=== PATIENT | male | born 1950 | race Caucasian/White ===

== ENCOUNTER 2020-07-06 08:14 | Outpatient (REF) | payer BC, SELFPAY ==
[2020-07-06 09:14] LABS: MANUAL DIFF FLAG NO
[2020-07-06 09:26] LABS: Basophils Percent Auto 0.4 % (0-2); Eosinophils Absolute Auto 0.3 X10*3/uL (0.0-0.4); Hematocrit 44.9 % (42-52); Imm Gran Abs Auto 0.03 X10*3/uL (0.00-0.03); Imm Gran Pct Auto 0.4 % (0.0-0.4); Lymphocytes Absolute Auto 2.9 X10*3/uL (1.2-4.9); Mean Corpuscular HGB Conc 33.4 g/dl (31.0-36.0); Mean Corpuscular Hemoglobin 31.4 pg (27.0-33.0); Mean Corpuscular Volume 94.1 fL (80-98); Monocytes Absolute Auto 0.5 X10*3/uL (0.1-1.2); Monocytes Percent Auto 7.8 % (2-11); Neutrophils Percent Auto 44.4 % (45-73); Platelet Count 226 X10*3/uL (160-400); Red Blood Count 4.77 X10*6/uL (4.60-5.80); Red Cell Distribution Width 12.3 % (11.0-16.0); White Blood Count 6.8 X10*3/uL (4.8-10.8)
[2020-07-06 09:41] LABS: Alanine Aminotransferase 49 U/L (0-40); Albumin Level 4.2 g/dL (3.5-5.0); Alkaline Phosphatase 79 U/L (39-117); Anion Gap 10 (12-20); Aspartate Amino Transferase 26 U/L (5-37); Bilirubin Direct 0.3 mg/dL (0.0-0.5); Bilirubin Total 0.7 mg/dL (0.0-1.0); Blood Urea Nitrogen 21 mg/dL (9-16); Calcium 9.1 mg/dL (8.4-10.2); Carbon Dioxide 29 mmol/L (22-29); Chloride 106 mmol/L (96-108); Cholesterol 137 mg/dL; Estimated Glomerular Filt Rate > 60; Glucose Random 112 mg/dL (60-115); HDL Cholesterol 34 mg/dL; LDL Cholesterol Calculated 87 mg/dl; Potassium 4.6 mmol/l (3.3-5.1); Sodium 140 mmol/L (135-145); Triglycerides 81 mg/dL
== END 2020-07-06 08:15 | disposition home or self-care (01) ==
LOC: HO.LAB 08:14
DX: I10 Essential (primary) hypertension (principal); E78.5 Hyperlipidemia, unspecified
CPT/HCPCS: 36415; 80053; 80061; 80076; 85025

== ENCOUNTER 2020-07-31 08:57 | Outpatient (REF) | payer SELFPAY | END 2020-07-31 08:58 | disposition home or self-care (01) | LOC: HO.HAP 08:57 | DX: Z46.1 Encounter for fitting and adjustment of hearing aid (principal) | CPT/HCPCS: V5264 ==

== ENCOUNTER 2020-08-07 12:12 | Outpatient (REF) | payer SELFPAY | END 2020-08-07 12:13 | disposition home or self-care (01) | LOC: HO.HAP 12:12 | DX: Z13.89 Encounter for screening for other disorder (principal) | CPT/HCPCS: 92700 ==

== ENCOUNTER 2020-10-23 11:44 | Outpatient (REF) | payer SELFPAY ==
--- NOTE | 2020-10-23 14:10 | MHC.AU.P13 ---
Hearing Aid Evaluation- Right Ear Date of Visit: 10/23/20 Collar Setter Overlock Used: Not Applicable Description of Hearing: Right ear - Moderately-severe to profound mixed hearing loss with 68% speech understanding. Left ear - Profound mixed hearing loss with 10% speech discrimination ability. Current Hearing Instrument Information: Right Phonak Anum Q 50-SP BTE. Left - Very old analog BTE Additional Information: Patient would like to purchase a new hearing aid. Advise staying with Phonak, but the newest Anum model. Patient was thinking about the new aid for the left ear. However, I recommend the new aid for the better ear and transfering his current Anum Q 50-SP to the left ear. Did consider trial with a BI-CROS system; however, patient relies heavily on sound cues and wants sound coming to the left ear. Discussed using the two aids, he will still have difficulty understanding speech when in groups or background noise is present. The left side will only be benefited by sound awareness. Discussed the levels of technology available and patient would like to try the highest level technology. Hearing Instrument Selection: Right Ear: Housekeeping Attendant: Phonak Model: Anum M 90-SP Battery Size: 13 Color: Sand Beige TubinT double bend Type of Mold: Patient will use the Microsonic Shell fit today. Plan: Plan of Care for Hearing Instrument Fitting: Patient wishes to purchase hearing aids as prescribed Action Taken/Action Needed: Medical Clearance to be requested from PCP/ENT Comments: Hearing Aid Fitting scheduled for 11/10/2020. Diagnosis Code(s): Primary Diagnosis: H90.6 Mixed Hearing Loss, Bilateral Services Performed: Hearing Aid Evaluation Type: HAE M: Monaural PP Signature: Provider: Pao Lopez, [facility]
--- NOTE | 2020-10-24 09:13 | MHC.AU.P13 ---
Hearing Aid Evaluation- Right Ear Date of Visit: 10/23/20 Ophthalmic Photographer Used: Not Applicable Description of Hearing: Right ear - Moderately-severe to profound mixed hearing loss with 68% speech understanding. Left ear - Profound mixed hearing loss with 10% speech discrimination ability. Current Hearing Instrument Information: Right Phonak Anum Q 50-SP BTE. Left - Very old analog BTE Additional Information: Patient would like to purchase a new hearing aid. Advise staying with Phonak, but the newest Anum model. Patient was thinking about the new aid for the left ear. However, I recommend the new aid for the better ear and transfering his current Anum Q 50-SP to the left ear. Did consider trial with a BI-CROS system; however, patient relies heavily on sound cues and wants sound coming to the left ear. Discussed using the two aids, he will still have difficulty understanding speech when in groups or background noise is present. The left side will only be benefited by sound awareness. Discussed the levels of technology available and patient would like to try the highest level technology. Hearing Instrument Selection: Right Ear: Commissioner [employer]: Phonak Model: Anum M 90-SP Battery Size: 13 Color: Sand Beige TubinT double bend Type of Mold: Patient will use the Microsonic Shell fit today. Plan: Plan of Care for Hearing Instrument Fitting: Patient wishes to purchase hearing aids as prescribed Action Taken/Action Needed: Medical Clearance to be requested from PCP/ENT Comments: Hearing Aid Fitting scheduled for 11/10/2020. Diagnosis Code(s): Primary Diagnosis: H90.6 Mixed Hearing Loss, Bilateral Services Performed: Hearing Aid Evaluation Type: HAE M: Monaural PP [place] Non-Quantity Charges: HANC: NonBillable Event Signature: Provider: Pao Lopez, [facility]
--- NOTE | 2020-10-24 09:16 | MHC.AU.MED ---
Medical Clearance for Hearing Instrumentation Date: 10/24/20 Patient Name: Vincenzo Prieto Date of : 1950 Primary Care Provider: Referring Provider: Noe Robles MD We have seen your patient on 10/24/20 and have determined that they are a candidate for amplification (See accompanying report). Specifically, they would benefit from: Hearing aid use in both ears There is a statute that addresses Medical Evaluation Requirements prior to fitting a patient with a hearing aid. According to [place] statute 265 CMR:6.03(1), (a) General. Except as provided in 265 CMR 6.03(1)(b), a [employer] shall not sell a hearing aid unless the prospective user has presented to the [employer] a written statement signed by a licensed physician that states that the patient's hearing loss has been medically evaluated and the patient may be considered a candidate for a hearing aid. The medical evaluation must have taken place within the preceding six months. Please note: Due to the [place] Statute referenced above, we cannot accept a signature other than that of a licensed physician. ACADEMIC MANAGER and PA signatures cannot be accepted. I am in agreement with the above recommendation. There is no medical contraindication for hearing instrumentation. Physician Signature Date Physician Name (Printed)
== END 2020-10-23 11:45 | disposition home or self-care (01) ==
LOC: HO.HAP 11:44
PROVIDERS: Visit Provider Internal Medicine
DX: Z13.89 Encounter for screening for other disorder (principal)

== ENCOUNTER 2020-11-01 11:39 | Outpatient (REF) | payer BC, SELFPAY | END 2020-11-01 11:40 | disposition home or self-care (01) | LOC: HO.LAB 11:39 | PROVIDERS: Visit Provider Internal Medicine | DX: Z20.822 Contact with and (suspected) exposure to COVID-19 (principal) | CPT/HCPCS: 36415; C9803; U0003 ==

== ENCOUNTER 2020-11-22 09:54 | Outpatient (REF) | payer SELFPAY | END 2020-11-22 09:55 | disposition home or self-care (01) | LOC: HO.HAP 09:54 | PROVIDERS: Visit Provider Internal Medicine | DX: Z46.1 Encounter for fitting and adjustment of hearing aid (principal) | CPT/HCPCS: V5257 ==

== ENCOUNTER 2020-11-23 13:24 | Outpatient (REF) | payer BC, SELFPAY | END 2020-11-23 13:25 | disposition home or self-care (01) | LOC: HO.HAP 13:24 | PROVIDERS: Visit Provider Internal Medicine | DX: Z13.89 Encounter for screening for other disorder (principal) ==

== ENCOUNTER 2020-12-07 09:52 | Outpatient (REF) | payer SELFPAY ==
--- NOTE | 2020-12-08 07:51 | MHC.AU.P13 ---
Hearing Instrument Follow-Up- Binaural Date of Visit: 12/07/20 Development Assistant Used: Not Applicable Right Ear: Gas Torch Brazier: Phonak Model: Anum M 90-SP Serial Number: [id number] Repair Warranty: 01/21/2024 ORIGINAL WARRANTY REPAIR AND LOSS AND DAMAGE Battery Size: 13 Color: Sand Beige TubinT double bend Type of Dome:Type of Mold: Patient will use the Microsonic Shell fit today. Left Ear: Gas Torch [place]razier: Transfering current 2013 Anum Q 50-SP Model: Anum Q 50-SP Serial Number: [id number] RepairWarranty: Battery Size: 13 Tubin TT double bend Type of Mold: Microsonic Shell Follow-Up Summary: Patient has only been using the new aid in the right ear and reports he feels he is hearing about the same as with the Anum Q 50 SP aid before using the new aid. He wants to try the new aid in the left ear as he has always used just a left aid prior to June 2020. Discussed the reason we changed the new aid to the right ear is due his change in left ear hearing with very poor speech discrimination. Patient still wanted to try the new aid in the left ear. Reprogrammed the aid for the left ear and patient reported no ability to understand speech with just the left aid. Counseled extensively about the reason a hearing aid for the left ear will not improve speech discrimination, it will just provide sound awareness. Changed the aid back to the right picking up last settings for the right ear. Patient would like to try an Oticon hearing aid for the right ear; however, he knows if the Oticon product does not provide more improvement, he wants the Phonak aid changed to Anum M 50-SP. Will order both products. Patient will be fit with both next visit and try for 2 weeks and decide which product to keep. Recommendations: Recommendations (Other): Schedule HAF appointment when both hearing aids are received. Diagnosis Code(s): Primary Diagnosis: H90.6 Mixed Hearing Loss, Bilateral Services Performed: [place] Non-Quantity Charges: HANC: NonBillable Event Signature: Provider: Pao Lopez, [facility]
== END 2020-12-07 09:53 | disposition home or self-care (01) ==
LOC: HO.HAP 09:52
PROVIDERS: Visit Provider Internal Medicine
DX: Z13.89 Encounter for screening for other disorder (principal)

== ENCOUNTER 2020-12-15 09:54 | Outpatient (REF) | payer SELFPAY | END 2020-12-15 09:55 | disposition home or self-care (01) | LOC: HO.HAP 09:54 | DX: Z13.89 Encounter for screening for other disorder (principal) ==

== ENCOUNTER 2020-12-29 09:52 | Outpatient (REF) | payer SELFPAY | END 2020-12-29 09:53 | disposition home or self-care (01) | LOC: HO.HAP 09:52 | PROVIDERS: Visit Provider Internal Medicine | DX: Z13.89 Encounter for screening for other disorder (principal) ==

== ENCOUNTER 2021-01-15 09:56 | Outpatient (REF) | payer SELFPAY | END 2021-01-15 09:57 | disposition home or self-care (01) | LOC: HO.HAP 09:56 | PROVIDERS: Visit Provider Internal Medicine | DX: Z13.89 Encounter for screening for other disorder (principal) ==

== ENCOUNTER 2021-01-25 09:56 | Outpatient (REF) | payer SELFPAY | END 2021-01-25 09:57 | disposition home or self-care (01) | LOC: HO.HAP 09:56 | PROVIDERS: Visit Provider Internal Medicine | DX: Z13.89 Encounter for screening for other disorder (principal) ==

== ENCOUNTER 2021-02-02 11:42 | Outpatient (REF) | payer SELFPAY | END 2021-02-02 11:43 | disposition home or self-care (01) | LOC: HO.HAP 11:42 | PROVIDERS: Visit Provider Internal Medicine | DX: Z13.89 Encounter for screening for other disorder (principal) ==

== ENCOUNTER 2021-02-05 12:11 | Outpatient (REF) | payer SELFPAY | END 2021-02-05 12:12 | disposition home or self-care (01) | LOC: HO.HAP 12:11 | PROVIDERS: Visit Provider Internal Medicine | DX: Z13.89 Encounter for screening for other disorder (principal) ==

== ENCOUNTER 2021-02-13 08:56 | Outpatient (REF) | payer SELFPAY | END 2021-02-13 08:57 | disposition home or self-care (01) | LOC: HO.HAP 08:56 | PROVIDERS: Visit Provider Internal Medicine | DX: Z13.89 Encounter for screening for other disorder (principal) ==

== ENCOUNTER 2021-02-21 14:01 | Outpatient (REF) | payer SELFPAY ==
--- NOTE | 2021-02-22 10:14 | MHC.AU.HFU ---
Hearing Instrument Follow-Up- Binaural Date of Visit: 02/21/21 Manager Marketing Communication Used: Not Applicable Right Ear: PATIENT CHANGED BACK TO THE OTICON OPN S 3 PP TODAY WILL CHANGE IN [employer] IF PATIENT IS KEEPING SEE DETAILS BELOW Shelver: Phonak Model: Anum M 90-SP Serial Number: [id number] Repair Warranty: 05/05/2024 ORIGINAL WARRANTY REPAIR AND LOSS AND DAMAGE Battery Size: 13 Color: Sand Beige TubinT double bend Type of Mold: Microsonic Shell Dispensed By: [facility] Date of Fittin02/13/2021 Left Ear: Shelver: Not currently using Model: Anum Q 50-SP Serial Number: [id number] Repair Warranty: Battery Size: 13 Tubin TT double bend Type of Mold: Microsonic Shell Dispensed By: [facility] Date of Fittin05/27/2014 Follow-Up Summary: Patient scheduled for F/U to determine which hearing aid he will keep. Despite patient reporting he did not like the Oticon OPN S 3 PP BTE when gathering with his family after fitting, he says he was able to understand the television better. He reports the same problem with family gatherings with the Phonak Anum M 90 SP BTE and he does not want to spend the extra money for the higher technology if no benefit is seen in the difficult environments. Extensively discussed realistic expectations of any amplification given his reduced speech understanding even in the best environments. He continues to have trouble understanding speech in difficult environments despite many adjustments to all hearing aids trialed and discussed no hearing aid will provide full benefit in all settings and continually reprogramming the aid based on difficult/complex listening environments will not change the problem. Again, talked about the communication strategies to use in these situations. Fit the Oticon OPN S 3 PP aid today. No additional programming changes made from the original fitting. Patient instructed to call the office next week to discuss final decision. The Anum M 90-SP aid is on [facility] [email or web address] desk to return for credit if patient is keeping the Oticon aid. Patient requested his old Anum Q 50 SP be made a bit softer as the sound quality is very sharp. Decreased overall 3 dB. Patient wants to use this aid only as a backup. Diagnosis Code(s): Primary Diagnosis: H90.6 Mixed Hearing Loss, Bilateral Services Performed: [place] Non-Quantity Charges: HANC: NonBillable Event Signature: Provider: Pao Lopez CCC-A
== END 2021-02-21 14:02 | disposition home or self-care (01) ==
LOC: HO.HAP 14:01
PROVIDERS: Visit Provider Internal Medicine
DX: Z13.89 Encounter for screening for other disorder (principal)

== ENCOUNTER 2021-02-28 09:26 | Outpatient (REF) | payer SELFPAY | END 2021-02-28 09:27 | disposition home or self-care (01) | LOC: HO.HAP 09:26 | PROVIDERS: Visit Provider Internal Medicine | DX: Z13.89 Encounter for screening for other disorder (principal) ==

== ENCOUNTER 2021-03-06 12:55 | Outpatient (REF) | payer SELFPAY | END 2021-03-06 12:56 | disposition home or self-care (01) | LOC: HO.HAP 12:55 | PROVIDERS: Visit Provider Internal Medicine | DX: Z13.89 Encounter for screening for other disorder (principal) ==

== ENCOUNTER 2021-05-29 07:52 | Outpatient (REF) | payer MEDICARE, SELFPAY ==
[2021-05-29 08:46] LABS: MANUAL DIFF FLAG NO
[2021-05-29 08:51] LABS: Basophils Percent Auto 0.3 % (0-2); Eosinophils Absolute Auto 0.3 X10*3/uL (0.0-0.4); Hematocrit 43.2 % (42-52); Hemoglobin 14.6 g/dl (14.0-18.0); Imm Gran Abs Auto 0.02 X10*3/uL (0.00-0.03); Imm Gran Pct Auto 0.3 % (0.0-0.4); Lymphocytes Absolute Auto 2.3 X10*3/uL (1.2-4.9); Lymphocytes Percent Auto 37.3 % (20-40); Mean Corpuscular HGB Conc 33.8 g/dl (31.0-36.0); Mean Corpuscular Hemoglobin 31.3 pg (27.0-33.0); Mean Corpuscular Volume 92.5 fL (80-98); Mean Platelet Volume 12.2 fL (9.4-12.4); Monocytes Absolute Auto 0.5 X10*3/uL (0.1-1.2); Monocytes Percent Auto 7.3 % (2-11); Neutrophils Absolute Auto 3.1 X10*3/uL (2.0-8.3); Neutrophils Percent Auto 50.8 % (45-73); Platelet Count 219 X10*3/uL (160-400); Red Blood Count 4.67 X10*6/uL (4.60-5.80); Red Cell Distribution Width 12.3 % (11.0-16.0); White Blood Count 6.2 X10*3/uL (4.8-10.8)
[2021-05-29 09:46] LABS: Glucose Urine UA NEG (NEG); Leukocyte Esterase Urine NEG (NEG); Nitrite Urine NEG (NEG); Specific Gravity - Urine 1.015 (1.005-1.025); UACC Culture Trigger NO; Urine Blood TRACE (NEG); Urine Ketones NEG (NEG); Urine Protein NEG (NEG-TRACE)
[2021-05-29 09:50] LABS: Appearance Urine CLEAR; Color Urine YELLOW
[2021-05-29 09:51] LABS: Alanine Aminotransferase 32 U/L (0-40); Albumin Level 4.3 g/dL (3.5-5.0); Alkaline Phosphatase 74 U/L (39-117); Anion Gap 13 (12-20); Aspartate Amino Transferase 17 U/L (5-37); Bilirubin Total 0.9 mg/dL (0.0-1.0); Blood Urea Nitrogen 17 mg/dL (9-16); Calcium 9.5 mg/dL (8.4-10.2); Carbon Dioxide 24 mmol/L (22-29); Chloride 109 mmol/L (96-108); Cholesterol 99 mg/dL; Estimated Glomerular Filt Rate > 60; Glucose Fasting 114 mg/dL (60-99); HDL Cholesterol 28 mg/dL; LDL Cholesterol Calculated 55 mg/dl; Potassium 4.6 mmol/L (3.3-5.1); Sodium 141 mmol/L (135-145); Triglycerides 82 mg/dL
[2021-05-29 10:01] LABS: TSH reflex Free T4 0.46 uIU/mL (0.32-4.0)
[2021-05-29 10:11] LABS: RBC Urine 0-2 /HPF (0); Squamous Epithelial Cell Urine TRACE /LPF; WBC Urine 0 /HPF (0-4)
== END 2021-05-29 07:53 | disposition home or self-care (01) ==
LOC: HO.LAB 07:52
PROVIDERS: PCP Internal Medicine; Visit Provider Internal Medicine
DX: I10 Essential (primary) hypertension (principal); E78.00 Pure hypercholesterolemia, unspecified; R25.1 Tremor, unspecified; E66.3 Overweight
CPT/HCPCS: 36415; 80053; 80061; 81001; 84443; 85025

== ENCOUNTER 2021-07-12 08:08 | Outpatient (REF) | payer MEDICARE, SELFPAY ==
[2021-07-12 08:41] LABS: MANUAL DIFF FLAG NO
[2021-07-12 08:58] LABS: Basophils Percent Auto 0.5 % (0-2); Eosinophils Absolute Auto 0.3 X10*3/uL (0.0-0.4); Eosinophils Percent Auto 4.8 % (0-4); Imm Gran Abs Auto 0.02 X10*3/uL (0.00-0.03); Imm Gran Pct Auto 0.3 % (0.0-0.4); Lymphocytes Absolute Auto 2.6 X10*3/uL (1.2-4.9); Lymphocytes Percent Auto 39.8 % (20-40); Mean Corpuscular HGB Conc 34.1 g/dl (31.0-36.0); Mean Corpuscular Hemoglobin 31.4 pg (27.0-33.0); Mean Corpuscular Volume 92.2 fL (80-98); Mean Platelet Volume 12.1 fL (9.4-12.4); Monocytes Absolute Auto 0.5 X10*3/uL (0.1-1.2); Monocytes Percent Auto 7.3 % (2-11); Neutrophils Absolute Auto 3.1 X10*3/uL (2.0-8.3); Neutrophils Percent Auto 47.3 % (45-73); Platelet Count 232 X10*3/uL (160-400); Red Blood Count 4.77 X10*6/uL (4.60-5.80); Red Cell Distribution Width 12.1 % (11.0-16.0); White Blood Count 6.5 X10*3/uL (4.8-10.8)
[2021-07-12 09:08] LABS: Estimated Average Glucose 123 mg/dL; Hemoglobin A1c % 5.9 %
[2021-07-12 09:22] LABS: Appearance Urine CLEAR; Color Urine YELLOW; Glucose Urine UA NEG (NEG); Leukocyte Esterase Urine NEG (NEG); Nitrite Urine NEG (NEG); PH 6.5 (5.0-8.0); Specific Gravity - Urine 1.015 (1.005-1.025); UACC Culture Trigger NO; Urine Blood TRACE (NEG); Urine Ketones NEG (NEG); Urine Protein NEG (NEG-TRACE)
[2021-07-12 09:22] LABS: Alanine Aminotransferase 33 U/L (0-40); Albumin Level 4.3 g/dL (3.5-5.0); Alkaline Phosphatase 82 U/L (39-117); Anion Gap 11 (12-20); Aspartate Amino Transferase 19 U/L (5-37); Bilirubin Total 1.2 mg/dL (0.0-1.0); Blood Urea Nitrogen 23 mg/dL (9-16); Calcium 9.4 mg/dL (8.4-10.2); Carbon Dioxide 27 mmol/L (22-29); Chloride 106 mmol/L (96-108); Cholesterol 108 mg/dL; Estimated Glomerular Filt Rate 57; Glucose Fasting 113 mg/dL (60-99); HDL Cholesterol 28 mg/dL; LDL Cholesterol Calculated 66 mg/dl; Sodium 139 mmol/L (135-145); Total Protein 7.2 g/dL (6.5-8.0); Triglycerides 72 mg/dL
[2021-07-12 09:43] LABS: Free T4 (Free Thyroxine) 1.03 ng/dL (0.71-1.85); Thyroid Stimulating Hormone 0.64 uIU/mL (0.32-4.0); Vitamin D 25-OH Total 30.9 ng/mL (>30)
[2021-07-12 09:51] LABS: Folate 7.2 ng/mL (> or = 4.0); Vitamin B12 579 pg/mL (200-900)
[2021-07-12 09:54] LABS: Mucus Urine 1+ /LPF; Squamous Epithelial Cell Urine TRACE /LPF; WBC Urine 0 /HPF (0-4)
== END 2021-07-12 08:09 | disposition home or self-care (01) ==
LOC: HO.LAB 08:08
PROVIDERS: PCP Internal Medicine; Visit Provider Internal Medicine
DX: I10 Essential (primary) hypertension (principal); E55.9 Vitamin D deficiency, unspecified; R79.89 Other specified abnormal findings of blood chemistry; E11.9 Type 2 diabetes mellitus without complications; E78.00 Pure hypercholesterolemia, unspecified; E53.8 Deficiency of other specified B group vitamins
CPT/HCPCS: 36415; 80053; 80061; 81001; 82306; 82607; 82746; 83036; 84439; 84443; 85025

== ENCOUNTER 2021-10-16 10:27 | Outpatient (REF) | payer MEDICARE, SELFPAY ==
--- NOTE | 2021-10-16 13:24 | MHC.AU.AHA ---
Adult Audiological Evaluation Date of Visit: 10/16/21 Reason for Appointment: Audiological re-evaluation to monitor the status of Mr. Priteo's hearing loss. He has a known asymmetrical mixed hearing loss bilaterally, with the left ear hearing worse than the right. He notes that his hearing seems to fluctuate a bit and he feels like it is gradually decreasing. He uses a hearing aid in the right ear. The only change to his medical history is he started an antidepressant. [place] [facility] [place] In the right ear, moderately-severe to profound mixed hearing loss. In the left ear, profound mixed hearing loss. Ear History: Previous Ear Surgery: Stapedectomy Bothersome Tinnitus/Ringing/Noises in Ears: Both Ears Medical History: Medical History: Dizziness or Unsteadiness, High Blood Pressure Medical History: Hyperlipidemia, Parkinson's disease, history of hernia surgery Medication List: atorvastatin 40 mg PO DAILY, carbidopa-levodopa 25-100 mg tabs PO BID, lisinopril 5 mg PO DAILY, meclizine 25 mg PO TID PRN, metoprolol succinate ER 25 mg PO DAILY, sertraline 25 mg PO DAILY, sildenafil 50 mg PO DAILY 30 days PRN Hearing Instrument History- Right Ear: Director Of Corporate Responsibility: [employer] Model: OPN S 3 PP BTE Serial Number: [id number] Battery Size: 13 Repair Warranty: 01/11/2024 Loss and Damage Warranty: 01/11/2024 Dispensed By: [facility] Date of Fittin12/15/2020 Otoscopy: Right Ear: Clear canals Left Ear: Clear canals Tympanometry: Tympanometry performed due to: History of middle ear dysfunction Right Ear: Reduced Middle Ear Compliance (Type As) Left Ear: Negative Middle Ear Pressure (Type C), Reduced Middle Ear Compliance (Type As) Hearing Evaluation: Transducer(s) Used: Insert Earphones, Bone Conduction Method: Conventional Audiometry Stimuli Used: Pure Tones Right Ear: Description of Hearing: Moderate sloping to profound mixed hearing loss from 250-8000 Hz. Left Ear: Description of Hearing: Profound mixed hearing loss from 250-8000 Hz. Speech Recognition Threshold (SRT): Method Used: Monitored Live Voice Stimuli Used: Spondee Words Right Ear: 80 dBHL Left Ear: 105 dBHL Word Discrimination: Method: Recorded Lists Word Lists Used: NU-6 Right Ear: 52% at 105 dBHL Left Ear: 8% at 110 dBHL Comparison: Compared to most recent evaluation: In the right ear, 15 dBHL improvement in hearing at 250 Hz. Decrease in speech discrimination score in the right ear, from 68% at 105 dBHL in 2020 to 52% at 105 dBHL today. Recommendations: Audiological re-evaluation in one year. Hearing aid maintenance performed today. Hearing aid(s) reprogrammed with updated test results. Diagnosis: Primary Diagnosis: H90.6 Mixed Hearing Loss, Bilateral Services Performed: Comprehensive Audiological Evaluation (CPT 16368) Tympanometry (CPT 81470) Signature: Provider: Pao Simons, CCC-A
== END 2021-10-16 10:28 | disposition home or self-care (01) ==
LOC: HO.SH 10:27
PROVIDERS: Visit Provider Internal Medicine
DX: H90.6 Mixed conductive and sensorineural hearing loss, bilateral (principal)
CPT/HCPCS: 92557; 92567

== ENCOUNTER 2021-12-12 07:56 | Outpatient (REF) | payer MEDICARE, SELFPAY ==
[2021-12-12 08:11] LABS: MANUAL DIFF FLAG NO
[2021-12-12 09:01] LABS: Basophils Percent Auto 0.5 % (0-2); Eosinophils Absolute Auto 0.3 X10*3/uL (0.0-0.4); Eosinophils Percent Auto 4.8 % (0-4); Hematocrit 44.2 % (42.0-52.0); Hemoglobin 14.9 g/dl (14.0-18.0); Imm Gran Abs Auto 0.03 X10*3/uL (0.00-0.03); Imm Gran Pct Auto 0.5 % (0.0-0.4); Lymphocytes Absolute Auto 2.4 X10*3/uL (1.2-4.9); Lymphocytes Percent Auto 37.1 % (20-40); Mean Corpuscular HGB Conc 33.7 g/dl (31.0-36.0); Mean Corpuscular Hemoglobin 31.5 pg (27.0-33.0); Mean Corpuscular Volume 93.4 fL (80.0-98.0); Mean Platelet Volume 11.7 fL (9.4-12.4); Monocytes Absolute Auto 0.5 X10*3/uL (0.1-1.2); Monocytes Percent Auto 7.8 % (2-11); Neutrophils Absolute Auto 3.2 x10*3/uL (2.0-8.3); Neutrophils Percent Auto 49.3 % (45-73); Platelet Count 229 X10*3/uL (160-400); Red Blood Count 4.73 X10*6/uL (4.60-5.80); Red Cell Distribution Width 12.5 % (11.0-16.0); White Blood Count 6.4 X10*3/uL (4.8-10.8)
[2021-12-12 09:18] LABS: Appearance Urine CLEAR; Color Urine YELLOW; Glucose Urine UA NEG (NEG); Leukocyte Esterase Urine NEG (NEG); Nitrite Urine NEG (NEG); UACC Culture Trigger NO; Urine Blood TRACE (NEG); Urine Ketones NEG (NEG); Urine Protein NEG (NEG-TRACE)
[2021-12-12 09:25] LABS: Alanine Aminotransferase 37 U/L (0-40); Albumin Level 4.2 g/dL (3.5-5.0); Alkaline Phosphatase 72 U/L (39-117); Anion Gap 10 (12-20); Aspartate Amino Transferase 22 U/L (5-37); Bilirubin Total 0.7 mg/dL (0.0-1.0); Blood Urea Nitrogen 22 mg/dL (9-16); Calcium 9.2 mg/dL (8.4-10.2); Carbon Dioxide 28 mmol/L (22-29); Chloride 106 mmol/L (96-108); Cholesterol 119 mg/dL; Estimated Glomerular Filt Rate > 60; Glucose Fasting 110 mg/dL (60-99); HDL Cholesterol 32 mg/dL; LDL Cholesterol Calculated 75 mg/dl; Potassium 4.4 mmol/L (3.3-5.1); Sodium 140 mmol/L (135-145); Total Protein 6.9 g/dL (6.5-8.0); Triglycerides 64 mg/dL
[2021-12-12 09:31] LABS: Mucus Urine 1+ /LPF; Squamous Epithelial Cell Urine TRACE /LPF; WBC Urine 0 /HPF (0-4)
[2021-12-12 09:46] LABS: TSH reflex Free T4 0.56 uIU/mL (0.32-4.0); Vitamin D 25-OH Total 27.7 ng/mL (>30)
== END 2021-12-12 07:57 | disposition home or self-care (01) ==
LOC: HO.LAB 07:56
PROVIDERS: PCP Internal Medicine; Visit Provider Internal Medicine
DX: E78.00 Pure hypercholesterolemia, unspecified (principal); E55.9 Vitamin D deficiency, unspecified; I10 Essential (primary) hypertension
CPT/HCPCS: 36415; 80053; 80061; 81001; 81003; 82306; 84443; 85025

== ENCOUNTER 2022-03-21 08:01 | Outpatient (REF) | payer MEDICARE, SELFPAY ==
[2022-03-21 08:20] LABS: MANUAL DIFF FLAG NO
[2022-03-21 08:37] LABS: Basophils Percent Auto 0.6 % (0-2); Eosinophils Absolute Auto 0.6 X10*3/uL (0.0-0.4); Eosinophils Percent Auto 8.8 % (0-4); Hematocrit 41.3 % (42.0-52.0); Hemoglobin 13.9 g/dl (14.0-18.0); Imm Gran Abs Auto 0.03 X10*3/uL (0.00-0.03); Imm Gran Pct Auto 0.4 % (0.0-0.4); Lymphocytes Absolute Auto 2.5 X10*3/uL (1.2-4.9); Lymphocytes Percent Auto 34.9 % (20-40); Mean Corpuscular HGB Conc 33.7 g/dl (31.0-36.0); Mean Corpuscular Hemoglobin 31.2 pg (27.0-33.0); Mean Corpuscular Volume 92.8 fL (80.0-98.0); Mean Platelet Volume 11.3 fL (9.4-12.4); Monocytes Absolute Auto 0.6 X10*3/uL (0.1-1.2); Monocytes Percent Auto 8.4 % (2-11); Neutrophils Absolute Auto 3.3 x10*3/uL (2.0-8.3); Neutrophils Percent Auto 46.9 % (45-73); Platelet Count 241 X10*3/uL (160-400); Red Blood Count 4.45 X10*6/uL (4.60-5.80); Red Cell Distribution Width 12.5 % (11.0-16.0); White Blood Count 7.1 X10*3/uL (4.8-10.8)
[2022-03-21 08:54] LABS: Estimated Average Glucose 128 mg/dL; Hemoglobin A1c % 6.1 %
[2022-03-21 09:02] LABS: Alanine Aminotransferase 32 U/L (0-40); Albumin Level 4.1 g/dL (3.5-5.0); Alkaline Phosphatase 90 U/L (39-117); Anion Gap 11 (12-20); Aspartate Amino Transferase 20 U/L (5-37); Bilirubin Total 0.8 mg/dL (0.0-1.0); Blood Urea Nitrogen 17 mg/dL (9-16); Calcium 9.3 mg/dL (8.4-10.2); Carbon Dioxide 27 mmol/L (22-29); Chloride 106 mmol/L (96-108); Cholesterol 106 mg/dL; Estimated Glomerular Filt Rate > 60; Glucose Fasting 113 mg/dL (60-99); HDL Cholesterol 26 mg/dL; LDL Cholesterol Calculated 64 mg/dl; Potassium 4.7 mmol/L (3.3-5.1); Sodium 139 mmol/L (135-145); Total Protein 6.9 g/dL (6.5-8.0); Triglycerides 81 mg/dL
[2022-03-21 09:21] LABS: Appearance Urine HAZY; Color Urine YELLOW; Glucose Urine UA NEG (NEG); Leukocyte Esterase Urine NEG (NEG); Nitrite Urine NEG (NEG); PH 6.5 (5.0-8.0); UACC Culture Trigger NO; Urine Blood TRACE (NEG); Urine Ketones NEG (NEG); Urine Protein NEG (NEG-TRACE)
[2022-03-21 09:25] LABS: Vitamin D 25-OH Total 28.5 ng/mL (>30)
[2022-03-21 09:49] LABS: Mucus Urine 1+ /LPF; RBC Urine 0-2 /HPF (0); Squamous Epithelial Cell Urine 1+ /LPF; WBC Urine 0 /HPF (0-4)
== END 2022-03-21 08:02 | disposition home or self-care (01) ==
LOC: HO.LAB 08:01
PROVIDERS: PCP Internal Medicine; Visit Provider Internal Medicine
DX: I10 Essential (primary) hypertension (principal); E55.9 Vitamin D deficiency, unspecified; E78.00 Pure hypercholesterolemia, unspecified; R73.01 Impaired fasting glucose
CPT/HCPCS: 36415; 80053; 80061; 81001; 82306; 83036; 84443; 85025

== ENCOUNTER 2022-08-27 11:08 | Outpatient (REF) | payer SELFPAY | END 2022-08-27 11:09 | disposition home or self-care (01) | LOC: HO.HAP 11:08 | PROVIDERS: Visit Provider Internal Medicine | DX: Z13.89 Encounter for screening for other disorder (principal) ==

== ENCOUNTER 2022-09-17 07:55 | Outpatient (REF) | payer MEDICARE, SELFPAY ==
[2022-09-17 08:10] LABS: MANUAL DIFF FLAG NO
[2022-09-17 08:55] LABS: Basophils Percent Auto 0.5 % (0-2); Eosinophils Absolute Auto 0.2 X10*3/uL (0.0-0.4); Eosinophils Percent Auto 3.5 % (0-4); Hematocrit 42.4 % (42.0-52.0); Hemoglobin 14.2 g/dl (14.0-18.0); Imm Gran Abs Auto 0.02 X10*3/uL (0.00-0.03); Imm Gran Pct Auto 0.3 % (0.0-0.4); Lymphocytes Absolute Auto 2.5 X10*3/uL (1.2-4.9); Mean Corpuscular HGB Conc 33.5 g/dl (31.0-36.0); Mean Corpuscular Hemoglobin 31.9 pg (27.0-33.0); Mean Corpuscular Volume 95.3 fL (80.0-98.0); Mean Platelet Volume 11.9 fL (9.4-12.4); Monocytes Absolute Auto 0.5 X10*3/uL (0.1-1.2); Monocytes Percent Auto 6.9 % (2-11); Neutrophils Absolute Auto 3.4 x10*3/uL (2.0-8.3); Neutrophils Percent Auto 50.8 % (45-73); Platelet Count 213 X10*3/uL (160-400); Red Blood Count 4.45 X10*6/uL (4.60-5.80); Red Cell Distribution Width 12.2 % (11.0-16.0); White Blood Count 6.7 X10*3/uL (4.8-10.8)
[2022-09-17 09:17] LABS: Appearance Urine Clear; Color Urine Yellow; Glucose Urine UA Negative (Negative); Leukocyte Esterase Urine Negative (Negative); Nitrite Urine Negative (Negative); PH 7.5 (5.0-9.0); Specific Gravity - Urine 1.015 (1.005-1.025); Urine Blood Negative (Negative); Urine Ketones Negative (Negative); Urine Protein Negative (Neg-Trace)
[2022-09-17 09:55] LABS: Alanine Aminotransferase 34 U/L (0-40); Albumin Level 4.2 g/dL (3.5-5.0); Alkaline Phosphatase 79 U/L (39-117); Anion Gap 13 (12-20); Aspartate Amino Transferase 23 U/L (5-37); Bilirubin Total 0.7 mg/dL (0.0-1.0); Blood Urea Nitrogen 21 mg/dL (9-16); Calcium 9.2 mg/dL (8.4-10.2); Carbon Dioxide 26 mmol/L (22-29); Chloride 111 mmol/L (96-108); Cholesterol 107 mg/dL; Estimated Glomerular Filt Rate > 60; Glucose Fasting 113 mg/dL (60-99); HDL Cholesterol 28 mg/dL; LDL Cholesterol Calculated 64 mg/dl; Sodium 145 mmol/L (135-145); TSH reflex Free T4 0.48 uIU/mL (0.32-4.0); Total Protein 6.8 g/dL (6.5-8.0); Triglycerides 76 mg/dL; Vitamin D 25-OH Total 31.2 ng/mL (>30)
== END 2022-09-17 07:56 | disposition home or self-care (01) ==
LOC: HO.LAB 07:55
PROVIDERS: PCP Internal Medicine; Visit Provider Internal Medicine
DX: E78.00 Pure hypercholesterolemia, unspecified (principal); E55.9 Vitamin D deficiency, unspecified; I10 Essential (primary) hypertension
CPT/HCPCS: 36415; 80053; 80061; 81003; 82306; 84443; 85025

== ENCOUNTER 2022-12-19 12:33 | Outpatient (REF) | payer MEDICARE, SELFPAY ==
--- NOTE | 2022-12-19 12:40 | ECG_ITS ---
Test Reason : Pre Op Blood Pressure : / mmHG Vent. Rate : 055 BPM Atrial Rate : 055 BPM P-R Int : 144 ms QRS Dur : 098 ms QT Int : 430 ms P-R-T Axes : -15 012 007 degrees QTc Int : 411 ms Sinus bradycardia Otherwise normal ECG When compared with ECG of 02-JUL-2017 22:42, No significant change was found Referred By: Jessica Oro Electronically Signed By:Johnnie Tian
[2022-12-19 13:28] LABS: Hematocrit 44.3 % (42.0-52.0); Hemoglobin 14.8 g/dl (14.0-18.0); Mean Corpuscular HGB Conc 33.4 g/dl (31.0-36.0); Mean Corpuscular Volume 92.9 fL (80.0-98.0); Mean Platelet Volume 12.1 fL (9.4-12.4); Platelet Count 227 X10*3/uL (160-400); Red Blood Count 4.77 X10*6/uL (4.60-5.80); Red Cell Distribution Width 12.3 % (11.0-16.0); White Blood Count 8.1 X10*3/uL (4.8-10.8)
[2022-12-19 13:32] LABS: INTERNATIONAL NORM RATIO 1.1 (0.9-1.1); Prothrombin Time 12.2 SEC (10.0-13.1)
[2022-12-19 14:18] LABS: Anion Gap 11 (12-20); Blood Urea Nitrogen 20 mg/dL (9-16); Calcium 9.5 mg/dL (8.4-10.2); Carbon Dioxide 29 mmol/L (22-29); Chloride 104 mmol/L (96-108); Estimated Glomerular Filt Rate > 60; Glucose Random 106 mg/dL (60-115); Potassium 5.3 mmol/L (3.3-5.1); Sodium 139 mmol/L (135-145)
[2022-12-19 14:24] LABS: TSH reflex Free T4 0.34 uIU/mL (0.32-4.0)
== END 2022-12-19 12:34 | disposition home or self-care (01) ==
LOC: HO.LAB 12:33
PROVIDERS: PCP Internal Medicine; Visit Provider Nurse Practitioner Family
DX: Z01.818 Encounter for other preprocedural examination (principal); R00.1 Bradycardia, unspecified
CPT/HCPCS: 36415; 80048; 84443; 85027; 85610; 93005

== ENCOUNTER 2022-12-23 13:13 | Outpatient (REF) | payer MEDICARE, SELFPAY ==
[2022-12-23 14:35] LABS: Estimated Average Glucose 131 mg/dL; Hemoglobin A1c % 6.2 %
[2022-12-23 14:54] LABS: Anion Gap 13 (12-20); Blood Urea Nitrogen 23 mg/dL (9-16); Calcium 9.2 mg/dL (8.4-10.2); Carbon Dioxide 26 mmol/L (22-29); Chloride 105 mmol/L (96-108); Estimated Glomerular Filt Rate 59; Glucose Random 134 mg/dL (60-115); Potassium 4.8 mmol/L (3.3-5.1); Sodium 139 mmol/L (135-145)
== END 2022-12-23 13:14 | disposition home or self-care (01) ==
LOC: HO.LAB 13:13
PROVIDERS: PCP Internal Medicine; Visit Provider Nurse Practitioner Family
DX: Z01.818 Encounter for other preprocedural examination (principal); E87.5 Hyperkalemia; R73.02 Impaired glucose tolerance (oral)
CPT/HCPCS: 36415; 80048; 83036

== ENCOUNTER 2023-04-13 20:31 | Inpatient (IN) | payer MEDICARE, SELFPAY ==
[2023-04-13 20:39] VITALS: BP 156/90; PULSE 78; O2SAT 96
[2023-04-13 20:42] VITALS: BP 152/72; PULSE 75; RESP 18; TEMP 37.2; O2SAT 96; BMI 23.6
[2023-04-13 20:46] VITALS: BP 151/77; PULSE 76; RESP 18; TEMP 37.2; O2SAT 96
--- NOTE | 2023-04-13 21:07 | ED.FALL ---
HPI - Fall General Chief Complaint: Fall Stated Complaint: FALL, AMS Time Seen by Provider: 04/13/23 20:43 Source: patient and family Mode of arrival: EMS Limitations: no limitations History of Present Illness HPI Narrative: Patient history of Parkinson disease hypertension apparently had a mechanical fall earlier today when he got up from the bed somewhat he fell know what caused the fall this happened at 10:30 patient usually does not fall with Parkinson disease but lately patient is weaker and little bit more confused per son. Patient does have history of UTIs in the past. Patient told the family about the fall later in the evening which is not very usual no significant injuries per patient Related Data Home Medications Medication Instructions Recorded Confirmed meclizine 25 mg tablet 25 mg PO TID PRN dizziness 01/14/21 03/10/23 sertraline 25 mg tablet 25 mg PO DAILY 09/25/21 03/10/23 Previous Rx's Medication Instructions Recorded tadalafil 20 mg tablet (Cialis) 20 mg PO DAILY PRN sexual activity 12/24/21 #20 tabs atorvastatin 40 mg tablet 40 mg PO DAILY #90 tabs 04/15/22 carbidopa 25 mg-levodopa 100 mg 1 tab PO BID 90 days #180 tabs 12/10/22 tablet escitalopram oxalate 5 mg tablet 5 mg PO DAILY 30 days #30 tabs 12/10/22 fluticasone propionate 50 2 spray intranasal DAILY PRN 12/19/22 mcg/actuation nasal allergy symptoms 30 days #16 grams spray,suspension sildenafil 50 mg tablet 50 mg PO DAILY PRN sexual activity 01/28/23 30 days #10 tabs lisinopril 5 mg tablet 5 mg PO DAILY #90 tabs 04/09/23 metoprolol succinate 25 mg 25 mg PO DAILY #90 tabs 04/09/23 tablet,extended release 24 hr Allergies Allergy/AdvReac Type Severity Reaction Status Date / Time No Known Allergies Allergy Verified 01/28/23 15:19 [No Known Allergies*] Review of Systems Review of Systems: Yes all other systems are reviewed and are negative PMFSH Past Medical History Medical History Benign essential hypertension Erectile dysfunction Hearing impairment Impaired fasting glucose Parkinson's disease Pure hypercholesterolemia Surgical History History of cochlear implant (~01/03/23) History of hernia surgery Family History Family History Father No problems noted. Mother No problems noted. Social History Social History Household Members: None Housing: House Alcohol intake: current Alcohol intake frequency: holidays/special occasions only Alcohol type: beer Patient Tobacco Use Status: Former Tobacco user Smoked in Last 30 Days: No Second Hand Smoke Exposure: Yes Use of substances other than those prescribed or required for medical reasons: No Advance Directives: No Advance Directives Information Provided: No Nutrition Risks: No Nutritional Risk service: No Current occupational status: retired Cognitive needs: No Hearing needs: Yes Vision needs: Yes (reading glasses) Physical Exam Vital Signs: Vital Signs: Last Vital Signs Temp 101.6 F H 04/13/23 23:42 Pulse 93 04/13/23 23:42 Resp 20 04/13/23 23:42 BP 141/69 H 04/13/23 23:42 Pulse Ox 97 04/13/23 23:42 O2 Del Method Room Air 04/13/23 23:42 BMI result Body Mass Index 23.6 Appearance: Alert. Oriented X3. No acute distress. Eyes: PERRLA, No Nystagmus ENT: Pharynx normal. Oral Mucosa moist hard of hearing with cochlear implant Neck: Normal inspection. Neck supple. CVS: Normal heart rate and rhythm. Pulses normal. Respiratory: No respiratory distress. Equal air entry bilateral, no wheezing/rales/rhonchi Abdomen: Soft and nontender. Bowel sounds are present, no mass palpable, no CVA tenderness Skin: Skin warm and dry. Normal skin color. Normal skin turgor. Extremities: No lower extremity edema. No calf tenderness Neuro: Oriented X 3. No motor deficit. No sensory deficit.No cerebellar signs , cranial nerves II-XII intact parkinsonian features with increased tone and tremors Medications Administered Generic Name Dose Route Start Last Admin Trade Name Freq PRN Reason Stop Dose Admin Sodium Chloride 3 ml 04/14/23 00:00 04/14/23 00:27 0.9 % Sodium Chloride Flush 3 Ml Syringe IVFLUSH 3 ml QSHIFT LALA Administration Discontinued Medications Generic Name Dose Route Start Last Admin Trade Name Freq PRN Reason Stop Dose Admin Acetaminophen 650 mg 04/13/23 23:46 04/14/23 00:26 Acetaminophen 325 Mg Tablet PO 04/13/23 23:47 650 mg ONCE ONE Administration Sodium Chloride 1,000 mls @ 999 mls/hr 04/13/23 22:13 04/14/23 00:30 Ns IV 04/13/23 23:13 Infused .Q1H1M ONE Infusion Sodium Chloride 1,000 mls @ 999 mls/hr 04/13/23 23:26 04/14/23 00:27 Ns IV 04/14/23 00:26 999 mls/hr .Q1H1M ONE Administration Ceftriaxone Sodium 1 gm/ 50 mls @ 100 mls/hr 04/13/23 23:26 04/14/23 00:29 Sodium Chloride IV 04/13/23 23:55 Infused ONCE ONE Infusion Medical Decision Making Medical Decision Making MDM Narrative: Patient with increased weakness and confusion with fall initially patient was afebrile , at 22:51 patient temperature was 103.3 degrees lab workup showed lactic acid of 5.8 with UA showing UTI meeting the criteria for sepsis patient received IV fluids and IV antibiotics repeat lactic acid was 1.3 blood pressure stayed stable Consult Healthcare Provider Management of the patient was discussed with: Hospitalist Lab Data MDM Lab Attestation statement: I reviewed the patient's lab results. 04/13/23 22:45 04/13/23 22:45 Labs: Lab Results 04/13/23 04/13/23 04/13/23 Range/Units 22:45 22:45 22:45 WBC 3.0 L (4.8-10.8) X10*3/uL RBC 4.67 (4.60-5.80) X10*6/uL Hgb 14.7 (14.0-18.0) g/dl Hct 44.0 (42.0-52.0) % MCV 94.2 (80.0-98.0) fL MCH 31.5 (27.0-33.0) pg MCHC 33.4 (31.0-36.0) g/dl RDW 12.3 (11.0-16.0) % Plt Count 149 L D (160-400) X10*3/uL MPV 10.8 (9.4-12.4) fL Immature Gran % (Auto) Cancelled Neut % (Auto) Cancelled Lymph % (Auto) Cancelled Tift % (Auto) Cancelled Eos % (Auto) Cancelled Baso % (Auto) Cancelled Lymph # (Auto) Cancelled Tift # (Auto) Cancelled Eos # (Auto) Cancelled Baso # (Auto) Cancelled Abs Immat Gran (auto) Cancelled Absolute Neuts (auto) Cancelled Absolute Nucleated RBC 0.000 (0.0-0.012) X10*3/uL Nucleated RBC % (auto) 0.0 (0.0-0.2) /100WBC Neutrophils % (Manual) 60 (45-73) % Band Neutrophils % 9 H (3-5) % Lymphocytes % (Manual) 28 (20-40) % Monocytes % (Manual) 2 (2-11) % Basophils % (Manual) 1 (0-2) % Abs Neuts (Manual) 2.1 (2.0-8.3) X10*3/uL Lymphocytes # (Manual) 0.8 L (1.2-4.9) X10*3/uL Monocytes # (Manual) 0.1 (0.1-1.2) X10*3/uL Smudge Cells PRESENT Toxic Vacuolation PRESENT Dohle Bodies PRESENT Platelet Estimate SLIGHTLY DECREASED (NORMAL) Plt Morphology Comment NORMAL RBC Morphology NOTED Jarrell Cells 2+ (3-5) /OIF Acanthocytes (Spur) 2+ (3-5) /OIF Sodium 134 L (135-145) mmol/L Potassium 4.3 (3.3-5.1) mmol/L Chloride 99 (96-108) mmol/L Carbon Dioxide 22 (22-29) mmol/L Anion Gap 17 (12-20) BUN 25 H (9-16) mg/dL Creatinine 1.40 (0.5-1.4) mg/dL Estim Creat Clear Calc 41.7 Estimated GFR 50 Random Glucose 137 H (60-115) mg/dL Lactic Acid 5.8 H* (0.5-2.0) mmol/L Calcium 9.8 D (8.4-10.2) mg/dL Total Bilirubin 2.7 H (0.0-1.0) mg/dL AST 23 (5-37) U/L ALT 23 (0-40) U/L Alkaline Phosphatase 168 H (39-117) U/L Total Protein 7.5 (6.5-8.0) g/dL Albumin 4.0 (3.5-5.0) g/dL Urine Color Urine Appearance Urine pH (5.0-9.0) Ur Specific Laverne (1.005-1.025) Urine Protein (Neg-Trace) mg/dL Urine Glucose (UA) (Negative) mg/dL Urine Ketones (Negative) mg/dL Urine Blood (Negative) Urine Nitrite (Negative) Ur Leukocyte Esterase (Negative) Urine RBC (0-2) /HPF Urine WBC (0-5) /HPF Ur Squamous Epith Cells (0-2) /HPF Urine Bacteria (None Seen) Hyaline Casts (0-2) /LPF 04/13/23 Range/Units 22:46 WBC (4.8-10.8) X10*3/uL RBC (4.60-5.80) X10*6/uL Hgb (14.0-18.0) g/dl Hct (42.0-52.0) % MCV (80.0-98.0) fL MCH (27.0-33.0) pg MCHC (31.0-36.0) g/dl RDW (11.0-16.0) % Plt Count (160-400) X10*3/uL MPV (9.4-12.4) fL Immature Gran % (Auto) Neut % (Auto) Lymph % (Auto) Tift % (Auto) Eos % (Auto) Baso % (Auto) Lymph # (Auto) Tift # (Auto) Eos # (Auto) Baso # (Auto) Abs Immat Gran (auto) Absolute Neuts (auto) Absolute Nucleated RBC (0.0-0.012) X10*3/uL Nucleated RBC % (auto) (0.0-0.2) /100WBC Neutrophils % (Manual) (45-73) % Band Neutrophils % (3-5) % Lymphocytes % (Manual) (20-40) % Monocytes % (Manual) (2-11) % Basophils % (Manual) (0-2) % Abs Neuts (Manual) (2.0-8.3) X10*3/uL Lymphocytes # (Manual) (1.2-4.9) X10*3/uL Monocytes # (Manual) (0.1-1.2) X10*3/uL Smudge Cells Toxic Vacuolation Dohle Bodies Platelet Estimate (NORMAL) Plt Morphology Comment RBC Morphology Marcus Cells /OIF Acanthocytes (Spur) /OIF Sodium (135-145) mmol/L Potassium (3.3-5.1) mmol/L Chloride (96-108) mmol/L Carbon Dioxide (22-29) mmol/L Anion Gap (12-20) BUN (9-16) mg/dL Creatinine (0.5-1.4) mg/dL Estim Creat Clear Calc Estimated GFR Random Glucose (60-115) mg/dL Lactic Acid (0.5-2.0) mmol/L Calcium (8.4-10.2) mg/dL Total Bilirubin (0.0-1.0) mg/dL AST (5-37) U/L ALT (0-40) U/L Alkaline Phosphatase (39-117) U/L Total Protein (6.5-8.0) g/dL Albumin (3.5-5.0) g/dL Urine Color Yellow Urine Appearance Clear Urine pH 6.0 (5.0-9.0) Ur Specific Laverne 1.010 (1.005-1.025) Urine Protein 30 (1+) H (Neg-Trace) mg/dL Urine Glucose (UA) Negative (Negative) mg/dL Urine Ketones Negative (Negative) mg/dL Urine Blood Large (3+) H (Negative) Urine Nitrite Positive H (Negative) Ur Leukocyte Esterase Moderate (2+) H (Negative) Urine RBC >20 H (0-2) /HPF Urine WBC 21-50 H (0-5) /HPF Ur Squamous Epith Cells 0-2 (0-2) /HPF Urine Bacteria 4+ (None Seen) Hyaline Casts 0-2 (0-2) /LPF Discharge Plan Discharge Clinical Impression: Sepsis, Weakness, Acute UTI, Fall Patient Disposition: Admitted As Inpatient
[2023-04-13 22:51] VITALS: BP 152/72; PULSE 102; RESP 20; TEMP 39.6; O2SAT 94
--- NOTE | 2023-04-13 23:41 | PC.NURSE ---
Patient oral temp 103., wbc 3.0, lactic 5.8. made aware at 2310
[2023-04-13 23:42] VITALS: BP 141/69; PULSE 93; RESP 20; TEMP 38.7; O2SAT 97
--- NOTE | 2023-04-13 23:51 | PM.IMHP ---
History of Present Illness Date of Service: 04/13/23 Chief Complaint: Fever This is a 72-year-old male with pertinent history of Parkinson's disease, essential hypertension, mixed hyperlipidemia, mood disorder who presents to the emergency department for evaluation of fevers and burning micturition. Has been ongoing for couple of days. Also has associated dizziness and generalized weakness. Patient was diagnosed with Parkinson's disease about a year ago. Along with dysuria, he also complains of urgency. Patient denies chest discomfort, palpitations, shortness of breath, changes in bowel habits. In the emergency department, patient was found to be septic and urine was concerning for UTI Review of Systems Constitutional: Constitutional: Reports fever(s) Cardiovascular: Cardiovascular: Reports no additional cardiovascular complaints Respiratory: Respiratory: Reports no additional respiratory complaints Gastrointestinal: Gastrointestinal: Reports no additional gastrointestinal complaints Genitourinary: Genitourinary: Reports dysuria, Reports urinary frequency and Reports urinary urgency [facility] Medical History Benign essential hypertension Erectile dysfunction Hearing impairment Impaired fasting glucose Parkinson's disease Pure hypercholesterolemia Family History Father No problems noted. Mother No problems noted. Surgical History History of cochlear implant (~01/03/23) History of hernia surgery Social History Household Members: None Housing: House Alcohol intake: current Alcohol intake frequency: holidays/special occasions only Alcohol type: beer Patient Tobacco Use Status: Former Tobacco user Smoked in Last 30 Days: No Second Hand Smoke Exposure: Yes Use of substances other than those prescribed or required for medical reasons: No Advance Directives: No Advance Directives Information Provided: No service: No Current occupational status: retired Cognitive needs: No Hearing needs: Yes Vision needs: Yes (reading glasses) Meds Allergies Allergy/AdvReac Type Severity Reaction Status Date / Time No Known Allergies Allergy Verified 01/28/23 15:19 [No Known Allergies*] Active Medications: Current Medications Sodium Chloride (Ns) 1,000 mls @ 999 mls/hr IV .Q1H1M ONE Stop: 04/14/23 00:26 Ceftriaxone Sodium 1 gm/ (Sodium Chloride) 50 mls @ 100 mls/hr IV ONCE ONE Stop: 04/13/23 23:55 Last Admin: 04/13/23 23:36 Dose: 100 mls/hr Home Medications Medication Instructions Recorded Confirmed Last Taken Type meclizine 25 mg tablet 25 mg PO TID PRN dizziness 01/14/21 03/10/23 Unknown History sertraline 25 mg tablet 25 mg PO DAILY 09/25/21 03/10/23 Unknown History Physical Exam Vital Signs and Narrative: Vital Signs: Last Vital Signs Temp 101.6 F H 04/13/23 23:42 Pulse 93 04/13/23 23:42 Resp 20 04/13/23 23:42 BP 141/69 H 04/13/23 23:42 Pulse Ox 97 04/13/23 23:42 O2 Del Method Room Air 04/13/23 23:42 BMI result Body Mass Index 23.6 Elderly male lying in bed in no distress, hard of hearing Neck supple, no JVD Regular rate and rhythm, S1-S2 heard Regular breath sounds bilaterally, no wheezing or crackles appreciated Abdomen soft nontender, no guarding, no rigidity Patient is awake, alert and oriented to self, place, time and person ; resting tremor present Flat affect No pedal edema Results Labs 04/13/23 22:45 04/13/23 22:45 Labs: Laboratory Results - last 24 hr 04/13/23 04/13/23 04/13/23 22:45 22:45 22:45 MCV 94.2 MCH 31.5 MCHC 33.4 RDW 12.3 Plt Count 149 L D MPV 10.8 Immature Gran % (Auto) Cancelled Neut % (Auto) Cancelled Lymph % (Auto) Cancelled [place] % (Auto) Cancelled Eos % (Auto) Cancelled Baso % (Auto) Cancelled Lymph # (Auto) Cancelled [place] # (Auto) Cancelled Eos # (Auto) Cancelled Baso # (Auto) Cancelled Abs Immat Gran (auto) Cancelled Absolute Neuts (auto) Cancelled Absolute Nucleated RBC 0.000 Nucleated RBC % (auto) 0.0 Neutrophils % (Manual) 60 Band Neutrophils % 9 H Lymphocytes % (Manual) 28 Monocytes % (Manual) 2 Basophils % (Manual) 1 Abs Neuts (Manual) 2.1 Lymphocytes # (Manual) 0.8 L Monocytes # (Manual) 0.1 Smudge Cells PRESENT Toxic Vacuolation PRESENT Dohle Bodies PRESENT Platelet Estimate SLIGHTLY DECREASED Plt Morphology Comment NORMAL RBC Morphology NOTED [place] Cells 2+ (3-5) Acanthocytes (Spur) 2+ (3-5) Anion Gap 17 Estim Creat Clear Calc 41.7 Estimated GFR 50 Random Glucose 137 H Lactic Acid 5.8 H* Calcium 9.8 D Total Bilirubin 2.7 H AST 23 ALT 23 Alkaline Phosphatase 168 H Total Protein 7.5 Albumin 4.0 Urine Color Urine Appearance Urine pH Ur Specific [place] Urine Protein Urine Glucose (UA) Urine Ketones Urine Blood Urine Nitrite Ur Leukocyte Esterase Urine RBC Urine WBC Ur Squamous Epith Cells Urine Bacteria Hyaline Casts 04/13/23 22:46 MCV MCH MCHC RDW Plt Count MPV Immature Gran % (Auto) Neut % (Auto) Lymph % (Auto) [place] % (Auto) Eos % (Auto) Baso % (Auto) Lymph # (Auto) [place] # (Auto) Eos # (Auto) Baso # (Auto) Abs Immat Gran (auto) Absolute Neuts (auto) Absolute Nucleated RBC Nucleated RBC % (auto) Neutrophils % (Manual) Band Neutrophils % Lymphocytes % (Manual) Monocytes % (Manual) Basophils % (Manual) Abs Neuts (Manual) Lymphocytes # (Manual) Monocytes # (Manual) Smudge Cells Toxic Vacuolation Dohle Bodies Platelet Estimate Plt Morphology Comment RBC Morphology Jarrell Cells Acanthocytes (Spur) Anion Gap Estim Creat Clear Calc Estimated GFR Random Glucose Lactic Acid Calcium Total Bilirubin AST ALT Alkaline Phosphatase Total Protein Albumin Urine Color Yellow Urine Appearance Clear Urine pH 6.0 Ur Specific [place] 1.010 Urine Protein 30 (1+) H Urine Glucose (UA) Negative Urine Ketones Negative Urine Blood Large (3+) H Urine Nitrite Positive H Ur Leukocyte Esterase Moderate (2+) H Urine RBC >20 H Urine WBC 21-50 H Ur Squamous Epith Cells 0-2 Urine Bacteria 4+ Hyaline Casts 0-2 Imaging Radiologist's Impressions: Impressions Cervical Spine CT 04/13/23 21:28 IMPRESSION: 1. No acute intracranial pathology. Patchy multifocal periventricular white matter hypoattenuation is most consistent with moderate chronic microvascular ischemic changes 2. No acute fracture or malalignment in the cervical spine. 3. Moderate to severe degenerative disc disease in the cervical spine from C4-C5 through C6-C7. Head CT 04/13/23 21:28 IMPRESSION: 1. No acute intracranial pathology. Patchy multifocal periventricular white matter hypoattenuation is most consistent with moderate chronic microvascular ischemic changes 2. No acute fracture or malalignment in the cervical spine. 3. Moderate to severe degenerative disc disease in the cervical spine from C4-C5 through C6-C7. Assessment and Plan (1) UTI (urinary tract infection): Status: Acute Plan This is a 72-year-old male with pertinent history of Parkinson's disease, essential hypertension, mixed hyperlipidemia, mood disorder who presents to the emergency department for evaluation of fevers and burning micturition. #. Sepsis due to acute UTI. Resuscitated with IV crystalloids. Initiating empiric IV antibiotics. Follow blood culture and urine culture. Lactic acid obtained #. Presyncope, likely orthostatic due to above. #. Acute lactic acidosis due to sepsis. #. Parkinson's disease. On Sinemet #. Essential hypertension. Hold antihypertensives in the setting of sepsis. Resume as appropriate #. Mixed hyperlipidemia. On statin #. Mood disorder. Continue home mood stabilizers Med rec pending DVT prophylaxis: Lovenox Full code. Discussed with patient at bedside Admit as inpatient and will require two night minimum hospital stay for IV antibiotics Time Spent With Patient Time: Total time managing care of this patient today ____ minutes. Quality Stroke Does the patient have a stroke diagnosis?: No VTE Prior VTE?: No VTE Risk Level:: Medical - moderate - high VTE Device Contraindication: Treatment Not Indicated VTE Drug Contraindication: N/A - Med Ordered
[2023-04-14] VITALS (7 sets, daily range): BP systolic 103–186; BP diastolic 67–88; PULSE 60–83; RESP 16–20; TEMP 36.3–37.1; O2SAT 97–99; BMI 23.4
--- NOTE | 2023-04-14 01:39 | PC.NURSE ---
Nurse to Nurse report given to Lanie. Informed Lanie that all sepsis checklist steps completed with the exception of 2 blood pressures after IVF. IVF still running as patient continues to fold arm
--- NOTE | 2023-04-14 02:42 | PC.NURSE ---
IV fluids completed per MAR, VSS, Pt affebrile at this time. Will CTM.
--- NOTE | 2023-04-14 07:48 | PHA.MEDREC ---
Pharmacy Consult ? Medication Reconciliation Pharmacy has completed the medication reconciliation.
[2023-04-14] MEDS: Enoxaparin Sodium 40 MG/0.4 ML SYRINGE SUBCUT (10:13)
--- NOTE | 2023-04-14 11:11 | HO.PM.IMPN ---
Subjective Subjective Date of Service: 04/14/23 Review of Systems Follow up UTI and sepsis no pain feels confused Physical Exam Vital Signs: Vital Signs: Last Vital Signs Temp 97.4 F 04/14/23 08:50 Pulse 68 04/14/23 08:50 Resp 20 04/14/23 08:50 BP 150/82 H 04/14/23 10:12 Pulse Ox 97 04/14/23 08:50 O2 Del Method Room Air 04/14/23 08:50 BMI result Body Mass Index 23.4 Appearing in no acute distress lung sounds are clear to auscultation heart regular rate rhythm, clear S1, S2 positive bowel sounds, abdomen is soft, nontender neuro patient is alert x3, no focal deficits Objective Data Active Medications Acetaminophen (Acetaminophen 325 Mg Tablet) 650 mg PO Q6H PRN PRN Reason: Pain, Mild (Pain Scale 1-3) Enoxaparin Sodium (Enoxaparin Sodium 40 Mg/0.4 Ml Syringe) 40 mg SUBCUT Q24H [facility] Last Admin: 04/14/23 10:13 Dose: 40 mg Documented By: ANH Ceftriaxone Sodium 1 gm/ (Sodium Chloride) 50 mls @ 100 mls/hr IV Q24H [facility] Melatonin (Melatonin 3 Mg Tablet) 6 mg PO BEDTIME PRN PRN Reason: Insomnia Ondansetron HCl (Ondansetron Hcl 4 Mg/2 Ml Vial) 4 mg IVPUSH Q8H PRN PRN Reason: Nausea and Vomiting Pharmacy Consult (Consult Rx Perform Med Rec) 1 each MISCELLANE ONCE PRN PRN Reason: Consult order Sodium Chloride (0.9 % Sodium Chloride Flush 3 Ml Syringe) 3 ml IVFLUSH QSHIFT [facility] Last Admin: 04/14/23 07:42 Dose: 3 ml Documented By: JOSUÉ Labs 04/14/23 05:10 04/14/23 05:10 Labs: Laboratory Results - last 24 hr 04/13/23 04/13/23 04/13/23 22:45 22:45 22:45 MCV 94.2 MCH 31.5 MCHC 33.4 RDW 12.3 Plt Count 149 L D MPV 10.8 Immature Gran % (Auto) Cancelled Neut % (Auto) Cancelled Lymph % (Auto) Cancelled [place] % (Auto) Cancelled Eos % (Auto) Cancelled Baso % (Auto) Cancelled Lymph # (Auto) Cancelled [place] # (Auto) Cancelled Eos # (Auto) Cancelled Baso # (Auto) Cancelled Abs Immat Gran (auto) Cancelled Absolute Neuts (auto) Cancelled Absolute Nucleated RBC 0.000 Nucleated RBC % (auto) 0.0 Neutrophils % (Manual) 60 Band Neutrophils % 9 H Lymphocytes % (Manual) 28 Monocytes % (Manual) 2 Basophils % (Manual) 1 Abs Neuts (Manual) 2.1 Lymphocytes # (Manual) 0.8 L Monocytes # (Manual) 0.1 Smudge Cells PRESENT Toxic Vacuolation PRESENT Dohle Bodies PRESENT Platelet Estimate SLIGHTLY DECREASED Plt Morphology Comment NORMAL RBC Morphology NOTED Polychromasia [place] Cells 2+ (3-5) Acanthocytes (Spur) 2+ (3-5) Anion Gap 17 Estim Creat Clear Calc 41.7 Estimated GFR 50 Random Glucose 137 H Lactic Acid 5.8 H* Lactic Acid F/U @ 2Hr Calcium 9.8 D Total Bilirubin 2.7 H AST 23 ALT 23 Alkaline Phosphatase 168 H Total Creatine Kinase Total Protein 7.5 Albumin 4.0 Urine Color Urine Appearance Urine pH Ur Specific [place] Urine Protein Urine Glucose (UA) Urine Ketones Urine Blood Urine Nitrite Ur Leukocyte Esterase Urine RBC Urine WBC Ur Squamous Epith Cells Urine Bacteria Hyaline Casts 04/13/23 04/14/23 04/14/23 22:46 00:12 00:57 MCV MCH MCHC RDW Plt Count MPV Immature Gran % (Auto) Neut % (Auto) Lymph % (Auto) [place] % (Auto) Eos % (Auto) Baso % (Auto) Lymph # (Auto) [place] # (Auto) Eos # (Auto) Baso # (Auto) Abs Immat Gran (auto) Absolute Neuts (auto) Absolute Nucleated RBC Nucleated RBC % (auto) Neutrophils % (Manual) Band Neutrophils % Lymphocytes % (Manual) Monocytes % (Manual) Basophils % (Manual) Abs Neuts (Manual) Lymphocytes # (Manual) Monocytes # (Manual) Smudge Cells Toxic Vacuolation Dohle Bodies Platelet Estimate Plt Morphology Comment RBC Morphology Polychromasia Jarrell Cells Acanthocytes (Spur) Anion Gap Estim Creat Clear Calc Estimated GFR Random Glucose Lactic Acid Lactic Acid F/U @ 2Hr 1.3 Calcium Total Bilirubin AST ALT Alkaline Phosphatase Total Creatine Kinase 204 H Total Protein Albumin Urine Color Yellow Urine Appearance Clear Urine pH 6.0 Ur Specific [place] 1.010 Urine Protein 30 (1+) H Urine Glucose (UA) Negative Urine Ketones Negative Urine Blood Large (3+) H Urine Nitrite Positive H Ur Leukocyte Esterase Moderate (2+) H Urine RBC >20 H Urine WBC 21-50 H Ur Squamous Epith Cells 0-2 Urine Bacteria 4+ Hyaline Casts 0-2 04/14/23 04/14/23 05:10 05:10 MCV 93.2 MCH 32.6 MCHC 35.0 RDW 12.2 Plt Count 150 L MPV 11.9 Immature Gran % (Auto) Cancelled Neut % (Auto) Cancelled Lymph % (Auto) Cancelled [place] % (Auto) Cancelled Eos % (Auto) Cancelled Baso % (Auto) Cancelled Lymph # (Auto) Cancelled [place] # (Auto) Cancelled Eos # (Auto) Cancelled Baso # (Auto) Cancelled Abs Immat Gran (auto) Cancelled Absolute Neuts (auto) Cancelled Absolute Nucleated RBC 0.000 Nucleated RBC % (auto) 0.0 Neutrophils % (Manual) 61 Band Neutrophils % 34 H Lymphocytes % (Manual) 3 L Monocytes % (Manual) 2 Basophils % (Manual) Abs Neuts (Manual) 18.8 H Lymphocytes # (Manual) 0.6 L Monocytes # (Manual) 0.4 Smudge Cells Toxic Vacuolation Dohle Bodies PRESENT Platelet Estimate SLIGHTLY DECREASED Plt Morphology Comment NORMAL RBC Morphology NOTED Polychromasia 1+ (0-2) Jarrell Cells 3+ (>5) Acanthocytes (Spur) Anion Gap 13 Estim Creat Clear Calc 54.1 Estimated GFR > 60 Random Glucose 115 Lactic Acid Lactic Acid F/U @ 2Hr Calcium 8.6 D Total Bilirubin AST ALT Alkaline Phosphatase Total Creatine Kinase Total Protein Albumin Urine Color Urine Appearance Urine pH Ur Specific [place] Urine Protein Urine Glucose (UA) Urine Ketones Urine Blood Urine Nitrite Ur Leukocyte Esterase Urine RBC Urine WBC Ur Squamous Epith Cells Urine Bacteria Hyaline Casts Assessment and Plan (1) Sepsis: Status: Acute Plan This is a 72-year-old male with pertinent history of Parkinson's disease, essential hypertension, mixed hyperlipidemia, mood disorder who presents to the emergency department for evaluation of fevers and burning micturition.? Severe Sepsis due to acute UTI.? fever, tachycardia, lactic acidosis, leukocytosis, thrombocytopenia Resuscitated with IV crystalloids.? continue Rocephin Follow blood culture and urine culture.? Presyncope likely orthostatic due to above. Hyponatremia mild likely from hypovolemia Parkinson's disease.? On Sinemet Essential hypertension.? Lisinopril and metoprolol Mixed hyperlipidemia.? On statin Mood disorder.? Continue home mood stabilizers DVT prophylaxis:? Deng Attending Dr. Morales Full code.? Discussed with patient at bedside hospital stay for IV antibiotics for UTI Time Spent With Patient Time: Total time managing care of this patient today ____ minutes. Quality Stroke Does the patient have a stroke diagnosis?: No VTE Prior VTE?: No VTE Risk Level:: Medical - moderate - high VTE Device Contraindication: Treatment Not Indicated VTE Drug Contraindication: N/A - Med Ordered
--- NOTE | 2023-04-14 15:44 | MHC.CM.PN ---
pt lives alone is independent and drives he does not feel he will need services when dcd dc plan home no services
[2023-04-14] MEDS: Carbidopa/Levodopa 25/100 TABLET 1 TAB PO (20:50)
[2023-04-14] MEDS: Atorvastatin Calcium 40 MG TABLET PO (20:50)
[2023-04-14] MEDS: Melatonin 3 MG TABLET 6 MG PO (22:35)
[2023-04-14] MEDS: Acetaminophen 325 MG TABLET 650 MG PO (22:36)
[2023-04-15 03:17] VITALS: BP 152/79; PULSE 62; RESP 18; TEMP 36; O2SAT 97
[2023-04-15 07:22] VITALS: BP 188/88; PULSE 65; RESP 18; TEMP 37.2; O2SAT 98
[2023-04-15 07:38] LABS: Hematocrit 38.4 % (42.0-52.0); Hemoglobin 13.3 g/dl (14.0-18.0); Mean Corpuscular HGB Conc 34.6 g/dl (31.0-36.0); Mean Corpuscular Hemoglobin 31.7 pg (27.0-33.0); Mean Corpuscular Volume 91.4 fL (80.0-98.0); Mean Platelet Volume 11.2 fL (9.4-12.4); Platelet Count 171 X10*3/uL (160-400); Red Cell Distribution Width 12.4 % (11.0-16.0)
[2023-04-15 07:57] LABS: Anion Gap 13 (12-20); Blood Urea Nitrogen 26 mg/dL (9-16); Calcium 8.6 mg/dL (8.4-10.2); Carbon Dioxide 21 mmol/L (22-29); Chloride 107 mmol/L (96-108); Creatinine Clr Calc Pharmacy 60.2; Estimated Glomerular Filt Rate > 60; Glucose Random 113 mg/dL (60-115); Sodium 137 mmol/L (135-145)
[2023-04-15] MEDS: lisinopriL 5 MG TABLET PO (08:10)
[2023-04-15] MEDS: Escitalopram Oxalate 5 MG TABLET PO (08:10)
[2023-04-15] MEDS: Metoprolol Succinate ER 25 MG TAB.ER.24H PO (08:10)
[2023-04-15] MEDS: Enoxaparin Sodium 40 MG/0.4 ML SYRINGE SUBCUT (08:10)
[2023-04-15] MEDS: Carbidopa/Levodopa 25/100 TABLET 1 TAB PO ×2 (08:10→21:19)
[2023-04-15 10:39] VITALS: PULSE 65; O2SAT 98
[2023-04-15 12:10] VITALS: BP 148/75; PULSE 61
--- NOTE | 2023-04-15 13:08 | HO.PM.IMPN ---
Subjective Subjective Date of Service: 04/15/23 Review of Systems Follow up UTI and sepsis no pain feels confused Physical Exam Vital Signs: Vital Signs: Last Vital Signs Temp 98.9 F 04/15/23 07:22 Pulse 61 04/15/23 12:10 Resp 18 04/15/23 07:22 BP 148/75 H 04/15/23 12:10 Pulse Ox 98 04/15/23 10:39 O2 Del Method Room Air 04/15/23 07:22 BMI result Body Mass Index 23.4 Appearing in no acute distress lung sounds are clear to auscultation heart regular rate rhythm, clear S1, S2 positive bowel sounds, abdomen is soft, nontender neuro patient is alert x3, no focal deficits Objective Data Active Medications Acetaminophen (Acetaminophen 325 Mg Tablet) 650 mg PO Q6H PRN PRN Reason: Pain, Mild (Pain Scale 1-3) Last Admin: 04/14/23 22:36 Dose: 650 mg Documented By: DIANA Atorvastatin Calcium (Atorvastatin Calcium 40 Mg Tablet) 40 mg PO BEDTIME [facility] Last Admin: 04/14/23 20:50 Dose: 40 mg Documented By: DIANA Carbidopa/Levodopa (Carbidopa/Levodopa 25/100 Tablet) 1 tab PO BID [facility] Last Admin: 04/15/23 08:10 Dose: 1 tab Documented By: PADILLA Enoxaparin Sodium (Enoxaparin Sodium 40 Mg/0.4 Ml Syringe) 40 mg SUBCUT Q24H [facility] Last Admin: 04/15/23 08:10 Dose: 40 mg Documented By: PADILLA Escitalopram Oxalate (Escitalopram Oxalate 5 Mg Tablet) 5 mg PO DAILY [facility] Last Admin: 04/15/23 08:10 Dose: 5 mg Documented By: PADILLA Fluticasone Propionate (Fluticasone Propionate Nasal 16 Gm [place]) 2 spray NOSTRIL-B DAILY PRN PRN Reason: allergy symptoms Ceftriaxone Sodium 1 gm/ (Sodium Chloride) 50 mls @ 100 mls/hr IV Q24H [facility] Last Infusion: 04/14/23 22:21 Dose: 0 mls/hr Documented By: DIANA Lisinopril (Lisinopril 5 Mg Tablet) 5 mg PO DAILY [facility]; Protocol Last Admin: 04/15/23 08:10 Dose: 5 mg Documented By: PADILLA Melatonin (Melatonin 3 Mg Tablet) 6 mg PO BEDTIME PRN PRN Reason: Insomnia Last Admin: 04/14/23 22:35 Dose: 6 mg Documented By: DIANA Metoprolol Succinate (Metoprolol Succinate Er 25 Mg Tab.Er.24h) 25 mg PO DAILY [facility]; Protocol Last Admin: 04/15/23 08:10 Dose: 25 mg Documented By: PADILLA Ondansetron HCl (Ondansetron Hcl 4 Mg/2 Ml Vial) 4 mg IVPUSH Q8H PRN PRN Reason: Nausea and Vomiting Pharmacy Consult (Consult Rx Perform Med Rec) 1 each MISCELLANE ONCE PRN PRN Reason: Consult order Sodium Chloride (0.9 % Sodium Chloride Flush 3 Ml Syringe) 3 ml IVFLUSH QSHIFT [facility] Last Admin: 04/15/23 08:11 Dose: 3 ml Documented By: PADILLA Labs 04/15/23 07:25 04/15/23 07:25 Labs: Laboratory Results - last 24 hr 04/15/23 04/15/23 07:25 07:25 MCV 91.4 MCH 31.7 MCHC 34.6 RDW 12.4 Plt Count 171 MPV 11.2 Absolute Nucleated RBC 0.000 Nucleated RBC % (auto) 0.0 Anion Gap 13 Estim Creat Clear Calc 60.2 Estimated GFR > 60 Random Glucose 113 Calcium 8.6 Microbiology Microbiology Results: Microbiology 04/13/23 22:59 Urine Culture - Preliminary Urine clean catch - Urine lemus top Gram negative jani 04/13/23 23:30 Blood Culture - Preliminary Blood - Venous No growth after 24 hours. 04/13/23 23:30 Blood Culture - Preliminary Blood - Venous No growth after 24 hours. Assessment and Plan (1) Sepsis: Status: Acute Plan This is a 72-year-old male with pertinent history of Parkinson's disease, essential hypertension, mixed hyperlipidemia, mood disorder who presents to the emergency department for evaluation of fevers and burning micturition.? Severe Sepsis due to acute GNR UTI.? fever, tachycardia, lactic acidosis, leukocytosis, thrombocytopenia sepsis resolved Resuscitated with IV crystalloids.? continue Rocephin neg blood culture after 25 hours follow final urine culture.? Presyncope. No further episodes likely orthostatic due to above. Hyponatremia. Resolved mild likely from hypovolemia Parkinson's disease.? On Sinemet Essential hypertension.? Lisinopril and metoprolol Mixed hyperlipidemia.? On statin Mood disorder.? Continue home mood stabilizers DVT prophylaxis:? Deng Attending Dr. Morales Full code.? Discussed with patient at bedside hospital stay for IV antibiotics for UTI Time Spent With Patient Time: Total time managing care of this patient today ____ minutes. Quality Stroke Does the patient have a stroke diagnosis?: No VTE Prior VTE?: No VTE Risk Level:: Medical - moderate - high VTE Device Contraindication: Treatment Not Indicated VTE Drug Contraindication: N/A - Med Ordered
[2023-04-15 15:21] VITALS: BP 151/72; PULSE 60; RESP 18; TEMP 37; O2SAT 97
[2023-04-15 19:51] VITALS: BP 140/67; PULSE 105; RESP 18; TEMP 37.1; O2SAT 97
[2023-04-15] MEDS: Atorvastatin Calcium 40 MG TABLET PO (21:19)
[2023-04-15] MEDS: Melatonin 3 MG TABLET 6 MG PO (21:19)
[2023-04-15] MEDS: Acetaminophen 325 MG TABLET 650 MG PO (21:20)
[2023-04-16 07:07] VITALS: BP 150/60; PULSE 59; RESP 18; TEMP 36.4; O2SAT 98
--- NOTE | 2023-04-16 08:50 | P.DS_ITS ---
DS: Providers Provider Date of Service: 04/16/23 Date of admission: 04/13/23 23:49 Primary care physician: Diaz Avalos MD DS: Diagnosis Discharge Diagnosis (1) Sepsis: Status: Acute DS: Summary Hospital Course Hospital Course: History and physical as per admitting provider. This is a 72-year-old male with pertinent history of Parkinson's disease, essential hypertension, mixed hyperlipidemia, mood disorder who presents to the emergency department for evalu ation of fevers and burning micturition.? Has been ongoing for couple of days.? Also has associated dizziness and generalized weakness.? Patient was diagnosed with Parkinson's disease about a year ago.? Along with dysuria, he also complains of urgency.? Patient denies chest discomfort, palpitations, shortness of breath, changes in bowel habits.In the emergency department, patient was found to be septic and urine was concerning for UTI 72-year-old man treated for severe sepsis secondary to acute E coli UTI. He was treated with IV Rocephin during hospitalization and will complete a total of 7 days antibiotics at home. He also initially presented after a fall and possible presyncope but patient reported that he never actually syncopized. He was seen and evaluated by Physical therapy who recommended home physical therapy. Did have an episode of hyponatremia which was secondary to hypovolemia treated with IV fluids. Parkinson's disease. Continue Sinemet Hypertension. Continue lisinopril metoprolol Hyperlipidemia. Continue statin Mental health. Continue medications Time Spent with Patient Time attestation: Total time managing care of this patient today ____ minutes. Discharge coordination time: Greater than 30 minutes Quality: Safe Use of Opioids Does Pt have an Active Cancer Diagnosis on the Problem List?: No Quality: Stroke Does the patient have a stroke diagnosis?: No Physical Exam Vital Signs: Vital Signs: Last Vital Signs Temp 97.6 F 04/16/23 07:07 Pulse 59 04/16/23 07:07 Resp 18 04/16/23 07:07 BP 150/60 H 04/16/23 07:07 Pulse Ox 98 04/16/23 07:07 O2 Del Method Room Air 04/16/23 07:07 BMI result Body Mass Index 23.4 Appearing in no acute distress head is normocephalic atraumatic eyes pupils are PERRLA sclera is anicteric mouth throat mucous membranes are intact and moist neck is supple no lymphadenopathy, no JVD noted lung sounds are clear to auscultation heart regular rate rhythm, clear S1, S2 positive bowel sounds, abdomen is soft, nontender neuro patient is alert x3, no focal deficits DS: Data Data Completed and Pending Labs on day of discharge: Preliminary micro results at discharge 04/13/23 23:30 Blood Culture - Preliminary Blood - Venous No growth after 48 hours. 04/13/23 23:30 Blood Culture - Preliminary Blood - Venous No growth after 48 hours. Discharge Plan Discharge Anticipated Discharge Date/Time: 04/16/23 08:44 Patient Disposition: Home Health Service Discharge Diagnosis: ecoli uti Referrals: Diaz Avalos MD [Primary Care Provider] - 1 Week Discharge Medications: New cefuroxime axetil 500 mg tablet 500 mg PO BID Qty: 8 0RF Continued carbidopa-levodopa 25-100 mg tablet 1 tab PO BID 90 Days Qty: 180 1RF metoprolol succinate 25 mg tablet extended release 24 hr 25 mg PO DAILY Qty: 90 3RF lisinopril 5 mg tablet 5 mg PO DAILY Qty: 90 3RF escitalopram oxalate 5 mg tablet 5 mg PO DAILY 30 Days Qty: 30 3RF atorvastatin 40 mg tablet 40 mg PO BEDTIME fluticasone propionate 50 mcg/actuation spray,suspension 2 spray intranasal DAILY PRN (Reason: allergy symptoms) 30 Days Qty: 16 2RF Rx Instructions: administer into each nostril Discharge Orders: Discharge Order (Routine); Ordered 04/16/23 Ordered By: Nataly Adhikari Diet: Advance to usual diet Activity on Discharge: As tolerated Stand Alone Forms: Patient Portal Discharge page Care Plan Goals: Complete resolution of symptoms Health Concerns: ecoli uti Plan of Treatment: Follow-up with primary care provider as needed Your been put on an antibiotic for urinary tract infection please take as prescribed Assessment: see discharge
[2023-04-16] MEDS: Enoxaparin Sodium 40 MG/0.4 ML SYRINGE SUBCUT (09:38)
[2023-04-16] MEDS: lisinopriL 5 MG TABLET PO (09:40)
[2023-04-16] MEDS: Escitalopram Oxalate 5 MG TABLET PO (09:40)
[2023-04-16] MEDS: Carbidopa/Levodopa 25/100 TABLET 1 TAB PO (09:40)
--- NOTE | 2023-04-16 09:45 | MHC.CM.PN ---
pt is dcd home with [facility]
--- NOTE | 2023-04-16 12:43 | P.F2F_ITS ---
Service Date Service Date: 04/16/23 Encounter Date of encounter: 04/16/23 Reasons for Services Signs and symptoms assessed: UTI Reason for physical therapy: home safety and mobility Homebound: Leaving the home is medically contraindicated at this time without the asist of a device and/or another person due th the listed conditions above and below. Reason homebound: unsteady gait / fall risk Certification: Based on the above findings, I certify that this patient is confined to the home and needs intermittent senior care care, physical therapy and/or speech therapy, or continues to need occupational therapy. The patient is under my care, and I have initiated the establishment of the plan of care. The patient will be followed by a physician who will periodically review the plan of care. Time Spent With Patient Time: Total time managing care of this patient today ____ minutes.
--- NOTE | 2023-05-15 18:43 | P.EN_ITS ---
Event Note Date of Service: 05/15/23 Event Note: This is a late documentation Focused physical exam done on 04/14 @1am to assess the patient. Patient laying in bed in no acute distress. Oreinted x2. No acute complaints. Resting tremor seen Time Spent With Patient Time: Total time managing care of this patient today ____ minutes.
== END 2023-04-16 10:45 | disposition home health service (06) | DRG 872 ==
LOC: HO.ED 21:09 → HO.EDOVER 04-14 00:03 → HO.S3 04-14 07:27
PROVIDERS: Admitting Provider Student in an Organized Health Care Education/Training Program; Emergency Provider Internal Medicine; PCP Internal Medicine; Visit Provider Nurse Practitioner Acute Care
DX: A41.51 Sepsis due to Escherichia coli [E. coli] (principal); N39.0 Urinary tract infection, site not specified; E87.1 Hypo-osmolality and hyponatremia; E87.21 Acute metabolic acidosis; R65.20 Severe sepsis without septic shock; E86.1 Hypovolemia; F39 Unspecified mood [affective] disorder; I95.1 Orthostatic hypotension; D69.59 Other secondary thrombocytopenia; E78.2 Mixed hyperlipidemia; G20 Parkinson's disease; Z87.891 Personal history of nicotine dependence; Z79.899 Other long term (current) drug therapy
CPT/HCPCS: 36415; 70450; 72125; 80048; 80053; 81001; 82550; 83605; 85007; 85027; 87040; 87086; 87088; 87186; 92950; 97162; 99285; J0696; J1650

== ENCOUNTER → 2023-04-13 23:49 | Outpatient (BNV) | payer MEDICARE, SELFPAY | PROVIDERS: Admitting Provider Student in an Organized Health Care Education/Training Program; Emergency Provider Internal Medicine; PCP Internal Medicine; Visit Provider Student in an Organized Health Care Education/Training Program | DX: N39.0 Urinary tract infection, site not specified (principal) | CPT/HCPCS: 99222; 99232; 99239; G0180 ==

== ENCOUNTER 2023-04-30 08:21 | Outpatient (AMB) | payer MEDICARE, SELFPAY ==
--- NOTE | 2023-04-30 08:36 | A.OFFPC_ITS ---
Vital Signs 04/30/23 08:37 Height 5 ft 6 in Weight 138 lb BMI 22.3 BP 142/78 H Blood Pressure Location Lt brachial Position Sitting Pulse 48 L Pulse Source Pulse Oximeter Pulse Oximetry (%) 98 Oxygen Delivery Method Room Air Intake Visit Reasons: [facility] [place] 04/16/23 UTI Allergies No Known Allergies [No Known Allergies*] Allergy (Verified 04/30/23 09:14) Medication List - Last Reconciled 04/30/23 by Diaz Avalos MD atorvastatin 40 mg PO BEDTIME carbidopa-levodopa 25-100 mg 1 tab PO BID 90 days cefuroxime axetil 500 mg PO BID escitalopram oxalate 5 mg PO DAILY 30 days fluticasone propionate 50 mcg/actuation 2 sprays intranasal DAILY PRN 30 days lisinopril 5 mg PO DAILY metoprolol succinate ER 25 mg PO DAILY Tobacco use date assessed: 01/28/23 Fall risk assessment: No Falls in past year Last assessed Fall Risk: 04/30/23 Dental Screening Dental Screen Date: 04/30/23 Did you have a dental visit in the last 12 months?: Yes Did you have a dental problem in the last 6 months where you did not have access to dental care?: No Was dental information given to patient?: No HPI [facility] [place] 04/16/23 UTI HPI Details Patient comes in today for his HDF follow up visit He was admitted to [facility] [place] for a few days about 2 weeks ago for UTI and sepsis Was sent home on oral Cefuroxime for a total of 7 days and he was sent in an additional Abx Rx for the same for 3 more days recently for a total of 10 days of Abx regimen, which he is currently still finishing up States that he feels well and no longer has the burning sensation on urination, fever and weakness that prompted him to go to the hospital a couple of weeks ago Denies any urinary frequency He presently denies any headaches or dizziness Denies any chest pains, no SOB No nausea/vomiting, no abdominal pain No change in bowel habits noted [facility] Medical History Benign essential hypertension Erectile dysfunction Hearing impairment Impaired fasting glucose Parkinson's disease Pure hypercholesterolemia Surgical History History of cochlear implant (~01/03/23) History of hernia surgery Family History Father No problems noted. Mother No problems noted. Social History Household Members: None Housing: House Do you presently have visiting nurse or other home services: No Alcohol intake: current Alcohol intake frequency: holidays/special occasions only Alcohol type: beer Patient Tobacco Use Status: Former Tobacco user Tobacco use type: Cigarette e-Cigarette/Vaping Use: Never Used Second Hand Smoke Exposure: No service: No Current occupational status: retired Cognitive needs: No Hearing needs: Yes Vision needs: Yes (reading glasses) Questionnaire PHQ-9 Over the last 2 weeks, how often have you been bothered by any of the following problems? 1. Little interest or pleasure in doing things: not at all 2. Feeling down, depressed, or hopeless: not at all 3. Trouble falling or staying asleep, or sleeping too much: not at all 4. Feeling tired or having little energy: not at all 5. Poor appetite or overeating: not at all 6. Feeling bad about yourself - or that you are a failure or have let yourself or your family down: not at all 7. Trouble concentrating on things, such as reading the newspaper or watching television: not at all 8. Moving or speaking so slowly that other people could have noticed. Or the opposite - being so fidgety or restless that you have been moving around a lot more than usual: not at all 9. Thoughts that you would be better off or of hurting yourself in some way: not at all Total score: 0 Depression Screening Interpretation: Negative 84677 - PHQ-9 Billing: Yes Source: Developed by Drs. Flo Luciano, Nicole Keller, Misael Cui and colleagues, with an educational radha from [employer]. Thrive Questionnaire Date Thrive assessed: 04/14/23 AUDIT C Alcohol Use Questionnaire (AUDIT-C) 1. How often do you have a drink containing alcohol?: 2-3 times a week 2. How many drinks containing alcohol do you have on a typical day when you are drinking?: 1 or 2 3. How often do you have six or more drinks on one occasion?: Never Total Score: 3 Score Reviewed/Action Taken: Yes ZIA-7 AMB Questionnaire ZIA-7 Date ZIA - 7 assessed: 01/28/23 Source: Developed by Drs. Flo Luciano, Nicole Keller, Misael Cui and colleagues, with an educational radha from [employer]. Review of Systems Const Denies chills, Reports fatigue (mild), Denies fever(s) and Denies headache(s) ENT Denies dysphagia, Reports dizziness (on and off, mostly when he changes position too quickly), Denies otalgia, Denies headache(s), Denies neck pain and Denies sore throat Card Denies chest pain, Denies palpitations and Denies dyspnea Resp Denies cough and Denies dyspnea GI Denies abdominal pain, Denies constipation, Denies dysphagia, Denies heartburn, Denies diarrhea, Denies nausea and Denies vomiting Denies difficulty urinating, Denies nocturia, Denies urinary frequency and Denies urinary urgency Musc Denies neck pain Neuro Reports dizziness (on and off, mostly when he changes position too quickly), Denies headache(s) and Reports tremor(s) (on and off mild shaking of both hands lately) Endo Reports fatigue (mild) and Denies palpitations Physical exam (Primary Care) Vital Signs: Last Vital Signs Pulse 48 L 04/30/23 08:37 BP 142/78 H 04/30/23 08:37 Pulse Ox 98 04/30/23 08:37 Oxygen Delivery Method Room Air 04/30/23 08:37 BMI result Body Mass Index 22.3 Tobacco/Smoking Status: Tobacco use Status Tobacco use date assessed 01/28/23 04/30/23 08:42 Patient Tobacco Use Status Former Tobacco user 04/30/23 08:42 Tobacco use type Cigarette 04/30/23 08:42 e-Cigarette/Vaping Use Never Used 04/30/23 08:42 PHQ-9: PHQ-9 Score PHQ-9: Total score 0 04/30/23 08:42 Depression Screening Interpretation: Negative Thrive Assessment: Date of Thrive Assessment Date Thrive assessed 04/14/23 04/30/23 08:42 Const General: no acute distress and alert HENMT Throat: Yes posterior oropharynx normal and Yes tonsils normal (no TP congestion noted) Neck Neck: Yes no lymphadenopathy and Yes supple Resp Auscultation: clear to auscultation bilaterally, no rales and no wheezes Cardio Rate: regular rate Rhythm: regular rhythm Heart sounds: no murmurs GI Palpation (GI): Soft to palpation and nontender Auscultation: normal bowel sounds Neuro Motor exam (neuro): Tremors during motor activity present (noted in both hands) Extrem Other: (+) mild resting tremors noted in both hands General: Yes no clubbing, cyanosis or edema Assessment and Plan Assessment & Plan (1) Sepsis due to urinary tract infection: Code(s): A41.9 - Sepsis, unspecified organism; N39.0 - Urinary tract infection, site not specified Plan: Resolving; patient reports near resolution of most of his previous symptoms Continue Cefuroxime 500 mg BID - has 2 to 3 tablets left of his current Abx regimen Patient is reminded to continue to increase his oral fluid intake (2) Parkinson's disease: Code(s): G20 - Parkinson's disease Plan: Continue Carbidopa-Levodopa 25-100 mg BID Follow-up with Neurology as scheduled (3) Pure hypercholesterolemia: Code(s): E78.00 - Pure hypercholesterolemia, unspecified Plan: Reinforced low cholesterol diet Continue Atorvastatin 40 mg QD Will recheck labs as scheduled next month for follow-up (4) Benign essential hypertension: Code(s): I10 - Essential (primary) hypertension Plan: Reinforced low-sodium diet - goal is systolic BP of at least 140 mm or less Continue Lisinopril 5 mg QD and Metoprolol ER 25 mg QD (5) Anxiety: Code(s): F41.9 - Anxiety disorder, unspecified Plan: Continue Escitalopram 5 mg QD Plan Follow up as scheduled next month Medications: Discontinued atorvastatin 40 mg PO DAILY 90 tabs 3RF Coding Level of Care Code Est Pt Level 3 (43501) Diagnoses Sepsis due to urinary tract infection A41.9; N39.0 Parkinson's disease G20 Pure hypercholesterolemia E78.00 Benign essential hypertension I10 Anxiety F41.9
[2023-04-30 08:37] VITALS: BP 142/78; PULSE 48; O2SAT 98; BMI 22.3
== END 2023-04-30 09:18 | disposition home or self-care (01) ==
PROVIDERS: PCP Internal Medicine; Visit Provider Internal Medicine
DX: A41.9 Sepsis, unspecified organism (principal); G20 Parkinson's disease; I10 Essential (primary) hypertension; F41.9 Anxiety disorder, unspecified; N39.0 Urinary tract infection, site not specified; E78.00 Pure hypercholesterolemia, unspecified
CPT/HCPCS: 99213

== ENCOUNTER 2023-05-12 10:39 | Outpatient (REF) | payer MEDICARE, SELFPAY ==
[2023-05-12 12:04] LABS: Appearance Urine Clear; Color Urine Yellow; Glucose Urine UA Negative (Negative); Leukocyte Esterase Urine Trace (Negative); Nitrite Urine Negative (Negative); Specific Gravity - Urine <= 1.005 (1.005-1.025); UMIC TRIGGER UACC YES; Urine Blood Negative (Negative); Urine Ketones Negative (Negative); Urine Protein Negative (Neg-Trace)
[2023-05-12 12:11] LABS: Bacteria Urine None Seen (None Seen); Hyaline Casts Urine 0-2 /LPF (0-2); RBC Urine 0-2 /HPF (0-2); Squamous Epithelial Cell Urine 0-2 /HPF (0-2); UACC Culture Trigger YES
== END 2023-05-12 10:40 | disposition home or self-care (01) ==
LOC: HO.LAB 10:39
PROVIDERS: PCP Internal Medicine; Visit Provider Internal Medicine
DX: R30.0 Dysuria (principal)
CPT/HCPCS: 81001; 81003; 87086; 92950

== ENCOUNTER 2023-05-30 10:27 | Outpatient (AMB) | payer MEDICARE, SELFPAY ==
[2023-05-30 10:35] VITALS: BP 130/80; PULSE 58; O2SAT 99; BMI 22.0
--- NOTE | 2023-05-30 10:35 | MHC.PC.OV ---
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 Accompanied by: Self / Same As Patient Allergies No Known Allergies [No Known Allergies*] Allergy (Verified 05/30/23 11:33) Medication List - Last Reconciled 05/30/23 by Diaz Avalos MD atorvastatin 40 mg PO BEDTIME 90 days carbidopa-levodopa 25-100 mg 1 tab PO BID 90 days escitalopram oxalate 5 mg PO DAILY 30 days fluticasone propionate 50 mcg/actuation 2 sprays intranasal DAILY PRN 30 days lisinopril 5 mg PO DAILY metoprolol succinate ER 25 mg PO DAILY sennosides (senna) 8.6 mg PO BEDTIME PRN tamsulosin 0.4 mg PO BEDTIME Tobacco use date assessed: 05/30/23 Fall risk assessment: 1 Fall in past year Last assessed Fall Risk: 05/30/23 Dental Screening Dental Screen Date: 05/30/23 Did you have a dental visit in the last 12 months?: Yes Did you have a dental problem in the last 6 months where you did not have access to dental care?: No Was dental information given to patient?: Patient has dentist HPI Parkinson's, hyperlipidemia, HTN HPI Details Patient comes in today for his follow up visit States that he is still experiencing some urinary frequency and urgency but his symptoms have improved a lot since he was started on Tamsulosin He was referred as well to urology last week for further evaluation and management - patient states that he is still waiting for appt. and has not yet received any calls from urology Adds that he is still experiencing constipation as he states that his stools look like small pellets often although he has not had to strain as much as he used to during bowel movements Has been taking his Senna Rx daily lately but does not think that it is helping much He denies any abdominal pain or bloating; denies any nausea or vomiting He denies any headaches but still has recurrent dizziness and unsteadiness and is requesting for a referral to a [facility] for physical therapy and gait training Denies any chest pains, no increased SOB noted He was not able to get his follow up labs done prior to his visit today; was also NOT able to get his labs done at his last visit about 3 to 4 months ago [facility] Medical History Benign essential hypertension Erectile dysfunction Hearing impairment Impaired fasting glucose Parkinson's disease Pure hypercholesterolemia Surgical History History of cochlear implant (~01/03/23) History of hernia surgery Family History Father No problems noted. Mother No problems noted. Social History Household Members: None Housing: House Do you presently have visiting nurse or other home services: No Alcohol intake: current Alcohol intake frequency: holidays/special occasions only Alcohol type: beer Patient Tobacco Use Status: Former Tobacco user Tobacco use type: Cigarette e-Cigarette/Vaping Use: Never Used Second Hand Smoke Exposure: No service: No Current occupational status: retired Cognitive needs: No Hearing needs: Yes Vision needs: Yes (reading glasses) Questionnaire PHQ-9 Over the last 2 weeks, how often have you been bothered by any of the following problems? 1. Little interest or pleasure in doing things: not at all 2. Feeling down, depressed, or hopeless: not at all 3. Trouble falling or staying asleep, or sleeping too much: not at all 4. Feeling tired or having little energy: not at all 5. Poor appetite or overeating: not at all 6. Feeling bad about yourself - or that you are a failure or have let yourself or your family down: not at all 7. Trouble concentrating on things, such as reading the newspaper or watching television: not at all 8. Moving or speaking so slowly that other people could have noticed. Or the opposite - being so fidgety or restless that you have been moving around a lot more than usual: not at all 9. Thoughts that you would be better off or of hurting yourself in some way: not at all Total score: 0 Depression Screening Interpretation: Negative 27344 - PHQ-9 Billing: Yes Source: Developed by Drs. Flo Luciano, Nicole Keller, Misael Cui and colleagues, with an educational radha from [employer]. Thrive Questionnaire Date Thrive assessed: 05/30/23 I am a: Patient What is your living situation today?: I have a steady place to live Within the past 12 months, did the food you bought not last and you didn't have the money to get more?: Never true Within the past 12 months, did you worry whether your food would run out before you got money to buy more?: Never true Do you have trouble paying for medicines?: No Do you have trouble getting transportation to medical appointments?: No Do you have trouble paying your heating and electricity bill?: No Do you have trouble taking care of your child, family member or friend?: No Do you have trouble with day-to-day activities such as bathing, preparing meals, shopping, managing finances, etc.?: No Are you currently unemployed and looking for a job?: No Are you interested in more education?: No Please select the resources that you would like help with: None Currently or been in a relationship where the following occur: no concerns reported AUDIT C Alcohol Use Questionnaire (AUDIT-C) 1. How often do you have a drink containing alcohol?: 2-3 times a week 2. How many drinks containing alcohol do you have on a typical day when you are drinking?: 1 or 2 3. How often do you have six or more drinks on one occasion?: Never Total Score: 3 Score Reviewed/Action Taken: Yes ZIA-7 AMB Questionnaire ZIA-7 Date ZIA - 7 assessed: 05/30/23 Feeling nervous, anxious, or on edge: 0 = Not at all Not being able to stop or control worryin = Not at all Worrying too much about different things: 0 = Not at all Trouble relaxin = Not at all Being so restless that it is hard to sit still: 0 = Not at all Becoming easily annoyed or irritable: 0 = Not at all Feeling afraid as if something awful might happen: 0 = Not at all Total ZIA-7 score (0-4 normal; 5-9 mild; 10-14 moderate; 15-21 severe): 0 Source: Developed by Nicole Rollins B.W. Krishna, Misael Cui and colleagues, with an educational radha from [employer]. Review of Systems Const Denies chills, Reports fatigue (mild), Denies fever(s) and Denies headache(s) ENT Denies dysphagia, Reports dizziness (on and off, mostly when he changes position too quickly), Denies otalgia, Denies headache(s), Denies neck pain, Denies odynophagia and Denies sore throat Card Denies chest pain, Denies palpitations and Denies dyspnea Resp Denies cough and Denies dyspnea GI Denies abdominal pain, Reports constipation, Denies dysphagia, Denies heartburn, Denies diarrhea, Denies nausea, Denies odynophagia and Denies vomiting Denies difficulty urinating, Denies dysuria, Denies nocturia, Reports urinary frequency, Reports urinary hesitancy and Reports urinary urgency Musc Denies neck pain Neuro Reports dizziness (on and off, mostly when he changes position too quickly), Denies headache(s) and Reports tremor(s) (on and off mild shaking of both hands lately) Endo Reports fatigue (mild) and Denies palpitations Physical exam (Primary Care) Vital Signs: Last Vital Signs Pulse 58 05/30/23 10:35 BP 130/80 05/30/23 10:35 Pulse Ox 99 05/30/23 10:35 Oxygen Delivery Method Room Air 05/30/23 10:35 BMI result Body Mass Index 22.0 Tobacco/Smoking Status: Tobacco use Status Tobacco use date assessed 05/30/23 05/30/23 10:43 Patient Tobacco Use Status Former Tobacco user 05/30/23 10:43 Tobacco use type Cigarette 05/30/23 10:43 e-Cigarette/Vaping Use Never Used 05/30/23 10:43 PHQ-9: PHQ-9 Score PHQ-9: Total score 0 05/30/23 11:29 Depression Screening Interpretation: Negative Thrive Assessment: Date of Thrive Assessment Date Thrive assessed 05/30/23 05/30/23 10:43 Currently or been in a relationship where the following occur: no concerns reported Const General: no acute distress and alert HENMT Ears: TM's normal bilaterally and EAC's normal Throat: Yes posterior oropharynx normal and Yes tonsils normal (no TP congestion noted) Neck Neck: Yes no lymphadenopathy and Yes supple Resp Auscultation: clear to auscultation bilaterally, no rales and no wheezes Cardio Rate: regular rate Rhythm: regular rhythm Heart sounds: no murmurs GI Palpation (GI): Soft to palpation and nontender Auscultation: normal bowel sounds Neuro Motor exam (neuro): Tremors during motor activity present (noted in both hands) Extrem Other: (+) mild resting tremors noted in both hands General: Yes no clubbing, cyanosis or edema Assessment and Plan Assessment & Plan (1) Parkinson's disease: Code(s): G20 - Parkinson's disease Plan: Continue Carbidopa-Levodopa 25-100 mg BID Follow-up with Neurology as scheduled (2) Dizziness: Code(s): R42 - Dizziness and giddiness Plan: Is most likely related to his Parkinson's disease Per request, will refer him to [facility] for PT evaluation and management (3) Pure hypercholesterolemia: Code(s): E78.00 - Pure hypercholesterolemia, unspecified Plan: He is again NOT able to get his follow up labs done prior to his visit today As he was also not able to get his labs done at his last visit and he has not had his cholesterol levels checked since September 2022, have advised patient to go and get his labs done [facility], preferably tomorrow morning or over the weekend Reinforced low cholesterol diet Continue Atorvastatin 40 mg QD Will recheck his labs again in 4 months for follow-up (4) Benign essential hypertension: Code(s): I10 - Essential (primary) hypertension Plan: Reinforced low-sodium diet - goal is systolic BP of at least 140 mm or less Continue Lisinopril 5 mg QD and Metoprolol ER 25 mg QD (5) Constipation: Code(s): K59.00 - Constipation, unspecified Qualifiers: Constipation type: unspecified constipation type Qualified Code(s): K59.00 - Constipation, unspecified Plan: Reinforced increased oral fluids and dietary fiber Will increase his Senna 8.6 mg from 1 tablet QD to 2 tablets (17.2 mg) QD Will also refer him to GI for further evaluation and management (6) Urinary urgency: Code(s): R39.15 - Urgency of urination Plan: Most likely due to BPH He has been referred to urology last week and is currently still awaiting appointment to see them - advised that urology will call him when they are ready to schedule him for an appointment Will have patient continue on Tamsulosin 0.4 mg Q HS in the meantime (7) Anxiety: Code(s): F41.9 - Anxiety disorder, unspecified Plan: Continue Escitalopram 5 mg QD Plan Follow up in 4 months Orders: Orders Comprehensive [place]. Panel Fast 4 Months E78.00 - Pure hypercholesterolemia, unspecified Lipid Panel 4 Months E78.00 - Pure hypercholesterolemia, unspecified TSH reflex Free T4 4 Months E78.00 - Pure hypercholesterolemia, unspecified Vitamin D 25-OH Total 4 Months E55.9 - Vitamin D deficiency, unspecified Complete Blood Count Auto Diff 4 Months I10 - Essential (primary) hypertension UA CC w/rflx Micro + Cult 4 Months R30.0 - Dysuria PT Evaluation and Treatment Today G20 - Parkinson's disease, R42 - Dizziness and giddiness Referrals Gastroenterology Referral K59.00 - Constipation, unspecified Medications: Changed From sennosides (senna) 8.6 mg PO BEDTIME PRN 30 tabs 3RF constipation To sennosides (senna) 17.2 mg (2 x 8.6 mg) PO BEDTIME 30 days 60 tabs 3RF constipation Discontinued atorvastatin 40 mg PO DAILY 90 tabs 3RF Coding Level of Care Code Est Pt Level 4 (65931) Diagnoses Parkinson's disease G20 Dizziness R42 Pure hypercholesterolemia E78.00 Benign essential hypertension I10 Constipation K59.00 Constipation type: unspecified constipation type Urinary urgency R39.15 Anxiety F41.9
== END 2023-05-30 11:42 | disposition home or self-care (01) ==
PROVIDERS: PCP Internal Medicine; Visit Provider Internal Medicine
DX: I10 Essential (primary) hypertension (principal); G20 Parkinson's disease; F41.9 Anxiety disorder, unspecified; R42 Dizziness and giddiness; E78.00 Pure hypercholesterolemia, unspecified; K59.00 Constipation, unspecified; R39.15 Urgency of urination
CPT/HCPCS: 99214

== ENCOUNTER 2023-06-03 07:36 | Outpatient (REF) | payer MEDICARE, SELFPAY ==
[2023-06-03 07:46] LABS: MANUAL DIFF FLAG NO
[2023-06-03 08:00] LABS: Basophils Percent Auto 0.2 % (0-2); Eosinophils Absolute Auto 0.2 X10*3/uL (0.0-0.4); Eosinophils Percent Auto 1.9 % (0-4); Hematocrit 40.5 % (42.0-52.0); Hemoglobin 13.8 g/dl (14.0-18.0); Imm Gran Abs Auto 0.07 X10*3/uL (0.00-0.03); Imm Gran Pct Auto 0.7 % (0.0-0.4); Lymphocytes Absolute Auto 2.4 X10*3/uL (1.2-4.9); Mean Corpuscular HGB Conc 34.1 g/dl (31.0-36.0); Mean Corpuscular Hemoglobin 31.5 pg (27.0-33.0); Mean Corpuscular Volume 92.5 fL (80.0-98.0); Mean Platelet Volume 10.6 fL (9.4-12.4); Monocytes Absolute Auto 0.5 X10*3/uL (0.1-1.2); Monocytes Percent Auto 4.7 % (2-11); Neutrophils Absolute Auto 7.1 x10*3/uL (2.0-8.3); Neutrophils Percent Auto 69.5 % (45-73); Platelet Count 402 X10*3/uL (160-400); Red Blood Count 4.38 X10*6/uL (4.60-5.80); Red Cell Distribution Width 12.8 % (11.0-16.0); White Blood Count 10.3 X10*3/uL (4.8-10.8)
[2023-06-03 08:25] LABS: Alanine Aminotransferase 36 U/L (0-40); Albumin Level 3.9 g/dL (3.5-5.0); Alkaline Phosphatase 94 U/L (39-117); Anion Gap 12 (12-20); Aspartate Amino Transferase 23 U/L (5-37); Bilirubin Total 0.7 mg/dL (0.0-1.0); Blood Urea Nitrogen 20 mg/dL (9-16); Calcium 9.5 mg/dL (8.4-10.2); Carbon Dioxide 26 mmol/L (22-29); Chloride 106 mmol/L (96-108); Cholesterol 131 mg/dL (<200); Estimated Glomerular Filt Rate > 60; Glucose Fasting 113 mg/dL (60-99); HDL Cholesterol 29 mg/dL (>40); LDL Cholesterol Calculated 84 mg/dL (<100); Potassium 4.3 mmol/L (3.3-5.1); Sodium 140 mmol/L (135-145); Total Protein 7.8 g/dL (6.5-8.0); Triglycerides 94 mg/dL (<150)
== END 2023-06-03 07:37 | disposition home or self-care (01) ==
LOC: HO.LAB 07:36
PROVIDERS: PCP Internal Medicine; Visit Provider Internal Medicine
DX: E78.00 Pure hypercholesterolemia, unspecified (principal); I10 Essential (primary) hypertension
CPT/HCPCS: 36415; 80053; 80061; 85025

== ENCOUNTER 2023-07-25 14:41 | Outpatient (AMB) | payer MEDICARE, SELFPAY ==
--- NOTE | 2023-07-25 15:15 | MHC.OFFVIS ---
Intake Intake Visit Reasons: Frequency of micturition Intake Note: New Patient presents for initial visit for frequency/recurrent uti Urology Medications: tamsulosin Blood Thinner: none PVR: Shoe Treer Required: No Accompanied by: Unknown Allergies No Known Allergies [No Known Allergies*] Allergy (Verified 07/25/23 16:07) Medication List - Last Reconciled 07/25/23 by DIONISIO English-BENEDICTO atorvastatin 40 mg PO BEDTIME 90 days carbidopa-levodopa 25-100 mg 1 tab PO BID 90 days escitalopram oxalate 5 mg PO DAILY 30 days fluticasone propionate 50 mcg/actuation 2 sprays intranasal DAILY PRN 30 days lisinopril 5 mg PO DAILY metoprolol succinate ER 25 mg PO DAILY quetiapine 25 mg PO BEDTIME sennosides (senna) 17.2 mg (2 x 8.6 mg) PO BEDTIME 30 days tamsulosin 0.4 mg PO BEDTIME HPI HPI Comments History of Present Illness Details Vincenzo is a very pleasant 73-year-old [place] male patient of Dr. Avalos who is accompanied by his son Solomon at today's office visit. He has a past medical history of erectile dysfunction, hearing impairment, Parkinson's disease, hypercholesteremia, and Lewy bodies dementia. Patient presents to the office today as a new patient for recurrent urinary tract infections. In discussion with the patient and his son today he reports to be doing and feeling well. He reports having had 2 urinary tract infections in the month of April at which time he was treated here at [facility] and then again at [facility] [place]. He reports having no UTI like symptoms since his last urinary tract infection in April. Patient's son Solomon discusses at todays office visit how family has recently been informed by the patient that he has Parkinson's disease and newly diagnosed with Lewy bodies dementia. The son reports previously patient had been attending all appointments by himself however, given his recent hospitalizations related to urinary tract infections he was informed of his past medical history. He discusses working with [facility] as well as [facility] for home services for his dad. When asked patient does report episodes of nocturia up to 4 times per night however when asked he does report to be drinking fluids up to/prior to bed. He otherwise currently denies urinary urgency, urinary frequency, incontinence, hematuria, dysuria, foul smelling urine, changes to urinary stream, flank pain, fever, and or chills. In office urinalysis results reviewed with the patient today. Discussed at length potential causes for recurrent urinary tract infections as well as further treatment options. Discussed obtaining retroperitoneal ultrasound for further assessment evaluation as well as PSA. In review of patient's chart it appears patient was prescribed Flomax however he and his Center ensure patient is taking this medication at this time. However, patient son states he will further assess. It appears multiple urines have been obtained and sent for urine cultures however multiple cultures with no urine growth. There is 1 culture obtained beginning of April noting E coli. This was discussed with the patient and his son today. REPLACED BY [facility] Medical History Erectile dysfunction Impaired fasting glucose Hearing impairment Parkinson's disease Pure hypercholesterolemia Benign essential hypertension Surgical History History of cochlear implant (~01/03/23) History of hernia surgery Family History Father No problems noted. Mother No problems noted. Social History Household Members: None Housing: House Do you presently have visiting nurse or other home services: No Alcohol intake: current Alcohol intake frequency: holidays/special occasions only Alcohol type: beer Patient Tobacco Use Status: Former Tobacco user Tobacco use type: Cigarette e-Cigarette/Vaping Use: Never Used Second Hand Smoke Exposure: No service: No Current occupational status: retired Cognitive needs: No Hearing needs: Yes Vision needs: Yes (reading glasses) Review of Systems Const Unobtainable due to mental condition Reports as per HPI Eyes Reports no additional complaints ENT Reports as per HPI Card Reports as per HPI Resp Reports no additional complaints GI Reports no additional complaints Reports as per HPI Musc Reports as per HPI Neuro Reports as per HPI Psych Reports no additional complaints Endo Reports no additional complaints Zheng/Lymph Reports no additional complaints Aller/Immun Reports no additional complaints Physical Exam Const General: cooperative, healthy appearing, comfortable, no acute distress, well developed, alert and awake Orientation/consciousness: oriented to person Limitations: no limitations HEENT Head: Yes normal to inspection, Yes normocephalic and Yes atraumatic Ears: hearing grossly normal bilaterally Eyes General: appearance normal, both eyes and all related structures Neck Neck: Yes normal visual inspection and Yes trachea midline Chest Chest palpation & inspection: normal inspection of the chest Resp Effort & Inspection: normal respiratory effort and able to speak in complete sentences Cardio Rate: regular rate GI Inspection: Yes normal to inspection General: Yes no CVA tenderness Back/Spine/Pelvis Back: no CVA tenderness Skin General skin exam: no rashes or lesions noted Neuro Other: tremors noted bilaterally General: oriented to person Extrem General: Yes normal to inspection Psych Appearance: grossly normal and well kempt Mental Status: mental status grossly normal Speech and movement: Normal speech and movement present and Clear speech present Affect: normal affect Attitude: cooperative Thought process: Normal thought process present Thought content: Normal thought content present Insight: Fair insight present (Psych) Judgement: Fair judgement present (Psych) Assessment & Plan Assessment & Plan (1) Recurrent urinary tract infection: Code(s): N39.0 - Urinary tract infection, site not specified Plan In office urinalysis results reviewed with the patient today; as noted above. Discussed at length potential causes and affects of recurrent urinary tract infections. Will obtain retroperitoneal ultrasound for further assessment evaluation. Will obtain PSA for further assessment evaluation. Discussed importance of increasing water intake throughout the day. Discussed near future in office cystoscopy symptoms persist and/or worsen. Discussed limiting fluids 2-3 hours prior to bed to decrease episodes of nocturia. Follow-up in 6 weeks with imaging and labs to be completed prior; or sooner with any issues, concerns, and or questions. Orders: Orders US retroperitoneal comp Today N39.0 - Urinary tract infection, site not specified AMB Urinalysis Automated Today Z13.9 - Encounter for screening, unspecified PSA,Total (Free>4and<10) Today N40.0 - Benign prostatic hyperplasia without lower urinary tract symptoms Patient Instructions: The patient had an opportunity to ask questions regarding the treatment plan. All questions were answered. Physical exam, labs, and imaging were discussed and reviewed in detail. As well as risks, benefits, and discussion of treatment choices. No major barriers to understanding were identified. The patient expressed understanding and agreement with the above treatment plan. The patient was made aware they should contact our office by phone for worsening of their current condition, the appearance of new symptoms, or with any questions or concerns. Compliance is encouraged with any medications and follow up testing that is ordered. It is a privilege to be allowed the opportunity to participate in? your urological care.? Again, if you have any questions or concerns If you have any questions or concerns please do not hesitate to contact me. The office is [phone]. This note is constructed using voice recognition software. While every effort has been made to ensure accuracy bar captain errors may have been included. Yours sincerely, MALIK English Coding Level of Care Code New Pt Level 3 (48504) Diagnoses Recurrent urinary tract infection N39.0
== END 2023-07-25 16:09 | disposition home or self-care (01) ==
PROVIDERS: PCP Internal Medicine; Visit Provider Nurse Practitioner Family
DX: N39.0 Urinary tract infection, site not specified (principal)
CPT/HCPCS: 99203; 99213

== ENCOUNTER → 2023-07-25 14:41 | Outpatient (BNVA) | payer MEDICARE, SELFPAY | PROVIDERS: PCP Internal Medicine; Visit Provider Nurse Practitioner Family ==

== ENCOUNTER 2023-07-29 11:52 | Outpatient (AMB) | payer MEDICARE, SELFPAY ==
[2023-07-29 11:56] VITALS: BP 128/60; PULSE 50; RESP 16; O2SAT 99; BMI 21.8
--- NOTE | 2023-07-29 11:56 | A.OFFPC_ITS ---
Vital Signs 07/29/23 11:56 Height 5 ft 6 in Weight 135 lb BMI 21.8 BP 128/60 Blood Pressure Location Lt brachial Position Sitting Respiration 16 Pulse 50 Pulse Source Pulse Oximeter Pulse Oximetry (%) 99 Oxygen Delivery Method Room Air Intake Visit Reasons: discharge 06/10-07/01 Intake Note: Patient is here for hospital discharge follow up. Patient was discharged from [facility] on 07/01/23.. Upkeep Mechanic Required: No Accompanied by: Son Allergies No Known Allergies [No Known Allergies*] Allergy (Verified 07/29/23 12:07) Tobacco use date assessed: 05/30/23 HPI HPI Comments History of Present Illness Details 73-year-old male his medical history sig nificant for Parkinson's disorder, hypertension, hypercholesteremia, anxiety, impaired fasting glucose and reoccurring UTI. Patient of Dr. Avalos presents today for hospital discharge follow-up from [facility] 06/10/2023 presented to the emergency room with complaints of dysuria and confusion patient was found to have leukocytosis and UTI, urine culture showed E coli Patient was treated with IV antibiotics with ceftriaxone and was discharged home on p.o. Bactrim. Patient was discharged to short-term rehab. Patient advised to follow-up with urology in a few weeks and Neurology. Review of the notes patient was seen by neurologist and was recently diagnosed with Lewy body dementia, his carbidopa-levodopa was increased to t.i.d. and patient was prescribed quetiapine 25 mg q.day as needed for agitation. It was recommended patient should not live alone, he should not be driving and he should have healthcare proxy and placed. Patient's son Luis M Healthcare proxy presents today with patient at this appointment. Patient's son reports that they are in the process of being in contact with [facility] and [employer] to set up in-home services. Patient was recently seen by Dieudonne Cedillo Urology AUTOMATIC GRINDER OPERATOR, retroperitoneal ultrasound ordered and PSA blood work patient to follow-up with Urology in 6 weeks. Patient's son reports son reports little home confusion and denied any sundowning for which patient was experiencing while in the hospital and at rehab. Patient denies any fever, chills, urinary symptoms. Patient reports overall feeling well. Patient's son reports states has an appointment booked with Dr. Arthreya Neurology for a second opinion on recent diagnosis of Lewy body dementia. [facility] Medical History Erectile dysfunction Impaired fasting glucose Hearing impairment Parkinson's disease Pure hypercholesterolemia Benign essential hypertension Surgical History History of cochlear implant (~01/03/23) History of hernia surgery Family History Father No problems noted. Mother No problems noted. Social History Household Members: None Housing: House Do you presently have visiting nurse or other home services: No Alcohol intake: current Alcohol intake frequency: holidays/special occasions only Alcohol type: beer Patient Tobacco Use Status: Former Tobacco user Tobacco use type: Cigarette e-Cigarette/Vaping Use: Never Used Second Hand Smoke Exposure: No service: No Current occupational status: retired Cognitive needs: No Hearing needs: Yes Vision needs: Yes (reading glasses) Questionnaire Thrive Questionnaire Date Thrive assessed: 05/30/23 ZIA-7 AMB Questionnaire ZIA-7 Date ZIA - 7 assessed: 05/30/23 Source: Developed by Drs. Flo Luciano, Nicole Keller, Misael Cui and colleagues, with an educational radha from [employer]. Review of Systems Const Denies chills, Denies fatigue, Denies fever(s) and Denies poor appetite Eyes Denies no additional complaints ENT Reports Normal hearing present Card Denies chest pain, Denies syncope, Denies rapid heart rate and Denies dyspnea Resp Denies cough and Denies dyspnea GI Denies change in stool character, Denies constipation, Denies diarrhea, Denies nausea and Denies vomiting Denies dysuria, Denies urinary frequency and Denies urinary urgency Neuro Reports Normal hearing present, Denies confusion and Denies syncope Psych Denies confusion Endo Denies fatigue Physical exam (Primary Care) Vital Signs: Last Vital Signs Pulse 50 07/29/23 11:56 Resp 16 07/29/23 11:56 BP 128/60 07/29/23 11:56 Pulse Ox 99 07/29/23 11:56 Oxygen Delivery Method Room Air 07/29/23 11:56 BMI result Body Mass Index 21.8 Tobacco/Smoking Status: Tobacco use Status Tobacco use date assessed 05/30/23 07/29/23 11:56 Patient Tobacco Use Status Former Tobacco user 07/29/23 11:56 Tobacco use type Cigarette 07/29/23 11:56 e-Cigarette/Vaping Use Never Used 07/29/23 11:56 Thrive Assessment: Date of Thrive Assessment Date Thrive assessed 05/30/23 07/29/23 11:56 Const General: No confusion Orientation/consciousness: No confusion HENMT Head: Yes normocephalic and Yes atraumatic Eyes Conjunctivae: conjunctivae normal Chest Chest palpation & inspection: normal inspection of the chest Resp Effort & Inspection: normal respiratory effort Auscultation: clear to auscultation bilaterally, no crackles, no rhonchi and no wheezes Cardio Rate: regular rate Rhythm: regular rhythm Heart sounds: S1 normal heart sound present and S2 normal heart sound present GI Inspection: Yes normal to inspection Neuro General: No confusion Cranial nerves: Yes Normal hearing present Extrem General: No edema Results AMB Hemoglobin A1c AMB Hemoglobin A1c 5.6 % Last Edit by ANATOLY Landrum on 07/29/23 12:30 Results Reviewed Results Reviewed: Laboratory Last Values Hgb A1c (Clinic) 5.6 % (4.0-6.0) 07/29/23 12:30 Assessment and Plan Assessment & Plan (1) Parkinson's disease: Code(s): G20 - Parkinson's disease Plan: Continue to follow with Neurology Continue on carbidopa-levodopa t.i.d. (2) Benign essential hypertension: Code(s): I10 - Essential (primary) hypertension Plan: Continue on lisinopril 5 mg daily, metoprolol 25 mg daily Follow low-salt diet and exercise. (3) Pure hypercholesterolemia: Code(s): E78.00 - Pure hypercholesterolemia, unspecified Plan: Continue on atorvastatin 40 mg at bedtime. Follow low-cholesterol diet. (4) Recurrent urinary tract infection: Code(s): N39.0 - Urinary tract infection, site not specified Plan: Continue to follow with Urology. Patient has upcoming appointment scheduled for retroperitoneal ultrasound. Continue on Flomax. (5) Lewy body dementia: Code(s): G31.83 - Neurocognitive disorder with Lewy bodies; F02.80 - Dementia in other diseases classified elsewhere, unspecified severity, without behavioral disturbance, psychotic disturbance, mood disturbance, and anxiety Plan: Continue on quetiapine p.r.n. for agitation as recommended by Neurology. (6) Hospital discharge follow-up: Code(s): Z09 - Encounter for follow-up examination after completed treatment for conditions other than malignant neoplasm Orders: Orders AMB Hemoglobin A1c 07/29/23 R73.01 - Impaired fasting glucose Coding Level of Care Code Est Pt Level 4 (13469) Diagnoses Parkinson's disease G20 Benign essential hypertension I10 Pure hypercholesterolemia E78.00 Recurrent urinary tract infection N39.0 Lewy body dementia G31.83; F02.80 Hospital discharge follow-up Z09
== END 2023-07-29 12:40 | disposition home or self-care (01) ==
PROVIDERS: PCP Internal Medicine; Visit Provider Nurse Practitioner Family
DX: G20.B1 Parkinson's disease with dyskinesia, without mention of fluctuations (principal); G31.83 Neurocognitive disorder with Lewy bodies; F02.80 Dementia in other diseases classified elsewhere, unspecified severity, without behavioral disturbance, psychotic disturbance, mood disturbance, and anxiety; I10 Essential (primary) hypertension; E78.00 Pure hypercholesterolemia, unspecified; N39.0 Urinary tract infection, site not specified; Z09 Encounter for follow-up examination after completed treatment for conditions other than malignant neoplasm
CPT/HCPCS: 83036; 99214

== ENCOUNTER 2023-08-12 11:15 | Outpatient (REF) | payer MEDICARE, SELFPAY ==
[2023-08-12 12:51] LABS: PSA,Total (Free>4and<10) 7.19 ng/mL (0.00-4.00)
[2023-08-13 10:59] LABS: Free Prostate Spec Ag 1.5 ng/mL; Percent Free Prostate Spec Ag 21 % (calc) (>25); Prostate Specific Ag Total 7.1 ng/mL (< OR = 4.0)
== END 2023-08-12 11:16 | disposition home or self-care (01) ==
LOC: HO.LAB 11:15
PROVIDERS: PCP Internal Medicine; Visit Provider Nurse Practitioner Family
DX: N40.0 Benign prostatic hyperplasia without lower urinary tract symptoms (principal); Z12.5 Encounter for screening for malignant neoplasm of prostate
CPT/HCPCS: 36415; 84153; 84154

== ENCOUNTER 2023-08-14 12:21 | Outpatient (REF) | payer MEDICARE, SELFPAY ==
--- NOTE | ~2023-08-14 | US_ITS ---
EXAMINATION: US RETROPERITONEAL LIMITED (RENAL ONLY) CLINICAL INFORMATION: Urinary tract infection, site not specified. COMPARISON: None available. TECHNIQUE: Real-time imaging of the kidneys. FINDINGS: RIGHT KIDNEY: 8.7 x 4.2 x 5.1 cm (SAG x AP x TRV). The kidney is normal in size, contour, and echogenicity. Renal cortical thickness is normal. No renal calculi or hydronephrosis. Multiple simple renal cysts the largest middle pole 8 x 7 x 5 mm. No kidney stones. No hydronephrosis. LEFT KIDNEY: 9.5 x 5.1 x 4.6 cm (SAG x AP x TRV). The kidney is normal in size, contour, and echogenicity. Renal cortical thickness is normal. No renal calculi or hydronephrosis. There are simple cysts upper pole 7 x 8 x 7 mm and 5 x 5 x 5 mm. US/US retroperitoneal limited IMPRESSION: * No ultrasound evidence of kidney stones or hydronephrosis. * Bilateral subcentimeter simple renal cysts.
== END 2023-08-14 12:22 | disposition home or self-care (01) ==
LOC: HO.US 12:21
PROVIDERS: PCP Internal Medicine; Visit Provider Nurse Practitioner Family
DX: N39.0 Urinary tract infection, site not specified (principal)
CPT/HCPCS: 76775

== ENCOUNTER 2023-08-19 13:24 | Outpatient (REF) | payer MEDICARE, SELFPAY | END 2023-08-19 13:25 | disposition home or self-care (01) | LOC: HO.US 13:24 | PROVIDERS: PCP Internal Medicine; Visit Provider Nurse Practitioner Family | DX: Z13.89 Encounter for screening for other disorder (principal) ==

== ENCOUNTER 2023-08-21 12:43 | Outpatient (REF) | payer MEDICARE, SELFPAY ==
--- NOTE | ~2023-08-21 | US_ITS ---
EXAMINATION: US PELVIS LIMITED (BLADDER) CLINICAL INFORMATION: Urinary tract infection. COMPARISON: Ultrasound retroperitoneal limited 08/14/2023. TECHNIQUE: Real-time imaging of the bladder. FINDINGS: BLADDER: Well distended and normal. Bilateral ureteral jets are demonstrated. Prevoid bladder volume is 229 mL. Postvoid bladder volume is 22.7 mL. ADDITIONAL FINDINGS: Enlarged heterogeneous prostate causing inferior indentation of the urinary bladder. Prostate volume is 89.5 mL. US/US bladder IMPRESSION: Enlarged heterogeneous prostate, correlate with PSA.
== END 2023-08-21 12:44 | disposition home or self-care (01) ==
LOC: HO.HMGCX 12:43
PROVIDERS: PCP Internal Medicine; Visit Provider Nurse Practitioner Family
DX: Z13.89 Encounter for screening for other disorder (principal); N39.0 Urinary tract infection, site not specified
CPT/HCPCS: 76857

== ENCOUNTER 2023-08-27 14:20 | Outpatient (AMB) | payer MEDICARE, SELFPAY ==
--- NOTE | 2023-08-27 14:44 | MHC.OFFVIS ---
Intake Intake Visit Reasons: 6w/PSA/US(set) Intake Note: Patient presents for follow up visit for frequency/recurrent uti/ultrasound/lab (imaging 08/14 & 08/21) Urology Medications: tamsulosin Blood Thinner: none PVR: 0ml's [employer] Practitioner Required: No Accompanied by: Son Allergies No Known Allergies [No Known Allergies*] Allergy (Verified 08/31/23 21:13) Medication List - Last Reconciled 08/31/23 by MALIK English atorvastatin 40 mg PO BEDTIME 90 days carbidopa-levodopa 25-100 mg 1 tab PO BID 90 days escitalopram oxalate 5 mg PO DAILY 30 days finasteride 5 mg PO DAILY 90 days fluticasone propionate 50 mcg/actuation 2 sprays intranasal DAILY PRN 30 days lisinopril 5 mg PO DAILY metoprolol succinate ER 25 mg PO DAILY quetiapine 25 mg PO BEDTIME sennosides (senna) 17.2 mg (2 x 8.6 mg) PO BEDTIME 30 days tamsulosin 0.4 mg PO BEDTIME HPI HPI Comments History of Present Illness Details Vincenzo is a very pleasant 73-year-old Surinamese male patient of Dr. Avalos who is accompanied by his son Solomon at today's office visit. He has a past medical history of erectile dysfunction, hearing impairment, Parkinson's disease, hypercholesteremia, and Lewy bodies dementia. Patient presents to the office today for follow-up. Of note, patient was seen approximately one month ago as a new patient for recurrent urinary tract infections at which time a retroperitoneal ultrasound and PSA was ordered for further assessment evaluation. These results reviewed with the patient today and his son today. PSA 7.2 % free PSA 21%. Reviewed PCPT risk calculator; 75% chance that prostate biopsies negative for cancer, 16% chance of low-grade prostate cancer, and 9% chance of high-grade prostate cancer. Recent retroperitoneal ultrasound results reviewed with the patient and his son today. Right kidney with no calculi or hydronephrosis. Multiple simple renal cyst the largest mid pole 8 x 7 x 5 mm. Left kidney with no calculi, and or hydronephrosis. There are simple cyst upper pole 7 x 8 x 7 mm and 5 x 5 x 5 mm. The bladder is well distended and normal. Bilateral ureteral jets are demonstrated. Pre void bladder volume is approximately 230 mL. Postvoid bladder volumes proximally 20 mL. Enlarged heterogeneous prostate causing inferior and intentation of the urinary bladder. Prostate volume is approximately 90 mLs. Discussed at length potential causes of elevated PSA. Discussed further assessment with in office cystoscopy. Discussed risks and benefits of surveillance monitoring verses prostate biopsy verses initiation of finasteride. This was discussed at length. Patient's son discusses patient upcoming appointment for a 2nd opinion with [facility]. The patient currently denies any bothersome urinary issues or concerns. He does report nocturia however does not find this bothersome. He reports approximately 2-4 times per night. He otherwise denies urinary urgency, urinary frequency, incontinence, hematuria, dysuria, foul smelling urine, changes to urinary stream, flank pain, fever, and or chills. In office urinalysis results reviewed with the patient today. PVR 0ml's. [facility] Medical History Erectile dysfunction Impaired fasting glucose Hearing impairment Parkinson's disease Pure hypercholesterolemia Benign essential hypertension Surgical History History of cochlear implant (~01/03/23) History of hernia surgery Family History Father No problems noted. Mother No problems noted. Household Members: None Housing: House Do you presently have visiting nurse or other home services: No Alcohol intake: current Alcohol intake frequency: holidays/special occasions only Alcohol type: beer Patient Tobacco Use Status: Former Tobacco user Tobacco use type: Cigarette e-Cigarette/Vaping Use: Never Used Second Hand Smoke Exposure: No service: No Current occupational status: retired Cognitive needs: No Hearing needs: Yes Vision needs: Yes (reading glasses) Review of Systems Const Unobtainable due to mental condition Reports as per HPI Eyes Reports no additional complaints ENT Reports as per HPI Card Reports as per HPI Resp Reports no additional complaints GI Reports no additional complaints Reports as per HPI Musc Reports as per HPI Neuro Reports as per HPI Psych Reports no additional complaints Endo Reports no additional complaints Zheng/Lymph Reports no additional complaints Aller/Immun Reports no additional complaints Physical Exam Const General: cooperative, healthy appearing, comfortable, no acute distress, well developed, alert and awake Orientation/consciousness: oriented to person Limitations: no limitations HEENT Head: Yes normal to inspection, Yes normocephalic and Yes atraumatic Ears: hearing grossly normal bilaterally Eyes General: appearance normal, both eyes and all related structures Neck Neck: Yes normal visual inspection and Yes trachea midline Chest Chest palpation & inspection: normal inspection of the chest Resp Effort & Inspection: normal respiratory effort and able to speak in complete sentences Cardio Rate: regular rate GI Inspection: Yes normal to inspection General: Yes no CVA tenderness Back/Spine/Pelvis Back: no CVA tenderness Skin General skin exam: no rashes or lesions noted Neuro Other: tremors noted bilaterally General: oriented to person Extrem General: Yes normal to inspection Psych Appearance: grossly normal and well kempt Mental Status: mental status grossly normal Speech and movement: Normal speech and movement present and Clear speech present Affect: normal affect Attitude: cooperative Thought process: Normal thought process present Thought content: Normal thought content present Insight: Fair insight present (Psych) Judgement: Fair judgement present (Psych) Office Procedures Post Void Residual Post Residual Void Post Void Residual (PVR): 0 [id number]-[id number] Void Residual by ultrasound Results AMB Urinalysis, Automated UA Leukoctes 0 Fariba/uL Last Edit by [employer] on 08/27/23 15:04 UA Nitrite Negative Last Edit by [employer] on 08/27/23 15:04 UA Urobilinogen 0.2 mg/dL Last Edit by [employer] on 08/27/23 15:04 UA Protein 0 mg/dL Last Edit by [employer] on 08/27/23 15:04 UA pH 6.0 Last Edit by [employer] on 08/27/23 15:04 UA Blood 10 Juan/uL Last Edit by [employer] on 08/27/23 15:04 UA Specific [place] 1.020 Last Edit by [employer] on 08/27/23 15:04 UA Ketone Negative Last Edit by [employer] on 08/27/23 15:04 UA Bilirubin 0 mg/dL Last Edit by [employer] on 08/27/23 15:04 UA Glucose 0 mg/dL Last Edit by [employer] on 08/27/23 15:04 Results Reviewed Results Reviewed: Laboratory Last Values Urine pH (Auto) 6.0 08/27/23 14:52 Specific [place] (Auto) 1.020 08/27/23 14:52 Urine Protein (Auto) 0 mg/dL 08/27/23 14:52 Glucose (UA)(Auto) 0 mg/dL 08/27/23 14:52 Urine Ketones (Auto) Negative 08/27/23 14:52 Urine Blood (Auto) 10 Juan/uL 08/27/23 14:52 Urine Nitrite (Auto) Negative 08/27/23 14:52 Urine Bilirubin (Auto) 0 mg/dL 08/27/23 14:52 Urine Urobilinogen (Auto) 0.2 mg/dL 08/27/23 14:52 Leukocyte Esterase (Auto) 0 Fariba/uL 08/27/23 14:52 Date of Service: 08/21/23 EXAMINATION: US PELVIS LIMITED (BLADDER) FINDINGS: BLADDER: Well distended and normal. Bilateral ureteral jets are demonstrated. Prevoid bladder volume is 229 mL. Postvoid bladder volume is 22.7 mL. ADDITIONAL FINDINGS: Enlarged heterogeneous prostate causing inferior indentation of the urinary bladder. Prostate volume is 89.5 mL. IMPRESSION: Enlarged heterogeneous prostate, correlate with PSA. Date of Service: 08/14/23 EXAMINATION: US RETROPERITONEAL LIMITED (RENAL ONLY) FINDINGS: RIGHT KIDNEY: 8.7 x 4.2 x 5.1 cm (SAG x AP x TRV). The kidney is normal in size, contour, and echogenicity. Renal cortical thickness is normal. No renal calculi or hydronephrosis. Multiple simple renal cysts the largest middle pole 8 x 7 x 5 mm. No kidney stones. No hydronephrosis. LEFT KIDNEY: 9.5 x 5.1 x 4.6 cm (SAG x AP x TRV). The kidney is normal in size, contour, and echogenicity. Renal cortical thickness is normal. No renal calculi or hydronephrosis. There are simple cysts upper pole 7 x 8 x 7 mm and 5 x 5 x 5 mm. IMPRESSION: * No ultrasound evidence of kidney stones or hydronephrosis. * Bilateral subcentimeter simple renal cysts. Assessment & Plan Assessment & Plan (1) Elevated PSA: Code(s): R97.20 - Elevated prostate specific antigen [PSA] (2) Enlarged prostate: Code(s): N40.0 - Benign prostatic hyperplasia without lower urinary tract symptoms (3) Nocturia: Code(s): R35.1 - Nocturia Plan In office urinalysis results reviewed with the patient today; as noted above. PVR 0 mL. Start finasteride as discussed and prescribed. Discussed at length potential causes of elevated PSA. Patient denies any bothersome urinary issues or concerns at this time. Will obtain PSA in 4 months. Follow-up in 4 months with lab to be completed prior; or sooner with any issues, concerns, and or questions. Orders: Orders AMB Post Void Residual by ultrasound 08/27/23 R39.15 - Urgency of urination AMB Urinalysis Automated 08/27/23 Z13.9 - Encounter for screening, unspecified PSA,Total (Free>4and<10) 08/27/23 N40.0 - Benign prostatic hyperplasia without lower urinary tract symptoms, R35.1 - Nocturia, R97.20 - Elevated prostate specific antigen [PSA] Medications: New finasteride 5 mg PO DAILY 30 days 30 tabs 1RF N40.1 - Benign prostatic hyperplasia with lower urinary tract symptoms, R33.9 - Retention of urine, unspecified finasteride 5 mg PO DAILY 90 days 90 tabs 3RF N40.1 - Benign prostatic hyperplasia with lower urinary tract symptoms, R33.9 - Retention of urine, unspecified Patient Instructions: The patient had an opportunity to ask questions regarding the treatment plan. All questions were answered. Physical exam, labs, and imaging were discussed and reviewed in detail. As well as risks, benefits, and discussion of treatment choices. No major barriers to understanding were identified. The patient expressed understanding and agreement with the above treatment plan. The patient was made aware they should contact our office by phone for worsening of their current condition, the appearance of new symptoms, or with any questions or concerns. Compliance is encouraged with any medications and follow up testing that is ordered. It is a privilege to be allowed the opportunity to participate in? your urological care.? Again, if you have any questions or concerns If you have any questions or concerns please do not hesitate to contact me. The office is [phone]. This note is constructed using voice recognition software. While every effort has been made to ensure accuracy weigher and mixer errors may have been included. Yours sincerely, DIONISIO English-BENEDICTO Coding Level of Care Code Est Pt Level 4 (06983) Diagnoses Elevated PSA R97.20 Enlarged prostate N40.0 Nocturia R35.1 CPT Codes Post Residual Void - PVR CPT Code: 44754-Pdwu Void Residual by ultrasound ([id number])
== END 2023-08-27 15:41 | disposition home or self-care (01) ==
PROVIDERS: PCP Internal Medicine; Visit Provider Nurse Practitioner Family
DX: R97.20 Elevated prostate specific antigen [PSA] (principal); N40.0 Benign prostatic hyperplasia without lower urinary tract symptoms; R35.1 Nocturia
CPT/HCPCS: 99214

== ENCOUNTER → 2023-08-27 14:20 | Outpatient (BNVA) | payer MEDICARE, SELFPAY | PROVIDERS: PCP Internal Medicine; Visit Provider Nurse Practitioner Family | DX: R35.1 Nocturia (principal); N40.0 Benign prostatic hyperplasia without lower urinary tract symptoms; R97.20 Elevated prostate specific antigen [PSA]; R39.15 Urgency of urination | CPT/HCPCS: 51798; 81003; 99212 ==

== ENCOUNTER 2023-09-02 13:42 | Outpatient (AMB) | payer MEDICARE, SELFPAY ==
--- NOTE | 2023-09-02 13:55 | A.OFFVIS_ITS ---
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 Pt is here with his son, Blake. They are looking for a second opinion. Purchase Order Checker Required: No Allergies No Known Allergies [No Known Allergies*] Allergy (Verified 09/02/23 13:56) Medication List - Last Reconciled 09/02/23 by Zo Jones MD atorvastatin 40 mg PO BEDTIME 90 days carbidopa-levodopa 25-100 mg 1 tab PO TID 90 days escitalopram oxalate 5 mg PO DAILY 30 days finasteride 5 mg PO DAILY 90 days fluticasone propionate 50 mcg/actuation 2 sprays intranasal DAILY PRN 30 days lisinopril 5 mg PO DAILY metoprolol succinate ER 25 mg PO DAILY sennosides (senna) 17.2 mg (2 x 8.6 mg) PO BEDTIME 30 days tamsulosin 0.4 mg PO BEDTIME HPI HPI Comments History of Present Illness Details 73y/o Right handed male comes for the [facility] management of parkinsons disease.He sees and is here for second opinion. He started noticing tremors - rest about 2-3 years ago L>R He was diagnosed with parkinsons disease .He was started on carbidopa/levodopa and it helped.In summer 2022 - he had delirium , diagnosed with UTI.He was admitted at [facility] , he was very confused and was told that he was sundowning. He saw after that and diagnosed with Diffuse Lewy body dementia. He is home now and has been stable since his UTI was treated. Cognition- normal SLeep- he has dream enactment Mood- he takes meds for anxiety SPeech-same Swallowing-normal No drooling Handwriting-good He is able to dress, shower. Gait- good, no falls recently ( during UTI he had a fall) Bowel movements- constipation No double vision Vertigo with change in head positions. Hallucinations-during UTI Sleep- good [facility] Medical History (Updated 09/02/23 @ 14:41 by Zo Jones MD) Parkinson's disease without dyskinesia or fluctuating manifestations Erectile dysfunction Impaired fasting glucose Hearing impairment Parkinson's disease Pure hypercholesterolemia Benign essential hypertension Surgical History History of cochlear implant (~01/03/23) History of hernia surgery Family History Father No problems noted. Mother No problems noted. Social History Household Members: None Housing: House Do you presently have visiting nurse or other home services: No Alcohol intake: current Alcohol intake frequency: holidays/special occasions only Alcohol type: beer Comment: occasionally Patient Tobacco Use Status: Former Tobacco user Tobacco use type: Cigarette e-Cigarette/Vaping Use: Never Used Second Hand Smoke Exposure: No Use of substances other than those prescribed or required for medical reasons: No service: No Current occupational status: retired Cognitive needs: No Hearing needs: Yes Vision needs: Yes (reading glasses) Review of Systems Const Unobtainable due to mental condition Reports as per HPI Eyes Reports no additional complaints ENT Reports as per HPI Card Reports as per HPI Resp Reports no additional complaints GI Reports no additional complaints Reports as per HPI Musc Reports as per HPI Neuro Reports as per HPI Psych Reports no additional complaints Endo Reports no additional complaints Zheng/Lymph Reports no additional complaints Aller/Immun Reports no additional complaints Physical Exam Vital Signs: Last Vital Signs Pulse 53 09/02/23 13:56 Resp 16 09/02/23 13:56 BP 126/78 09/02/23 13:56 Pulse Ox 100 09/02/23 13:56 Oxygen Delivery Method Room Air 09/02/23 13:56 BMI result Body Mass Index 22.3 Const General: cooperative, healthy appearing, comfortable and no acute distress Nutritional Appearance: average body habitus Orientation/consciousness: patient oriented x3 Eyes Pupils: Equal, round and reactive pupils present Neuro Other: Mild decreased blink , facial expression Mild dysprosody Mary moderate amplitude Rest tremors L>R No action or postural tremors FFM and foot taps mildly decreased mild L>R Gait- mild stoop, slow good stride , decreased arm swings mary L>R General: patient oriented x3 and moves all extremities Cranial nerves: Yes Facial sensation intact/muscles of mastication intact, Yes Equal, round and reactive pupils present, No Bilaterally intact EOM present, Yes Nystagmus not present, Yes Normal facial strength present, Yes Midline tongue present and Yes Ability to bilaterally elevate shoulders present Cognition (Neuro): normal cognition Motor exam (neuro): 5/5 motor strength present throughout Deep tendon reflexes (DTR's): Right triceps reflex intensity grade: 1+, Left triceps reflex intensity grade: 1+, Rt Biceps (C5, C6): 1+, Left biceps reflex intensity grade: 1+, Right brachioradialis reflex intensity grade: 1+, Left brachioradialis reflex intensity grade: 1+, Right patellar reflex intensity grade: 1+ and Left patellar reflex intensity grade: 1+ Coordination: [id number] test normal Assessment & Plan Assessment & Plan (1) Parkinson's disease without dyskinesia or fluctuating manifestations: Comment: Tremor predominant Code(s): G20.A1 - Parkinson's disease without dyskinesia, without mention of fluctuations Plan Discussed the diagnosis in detail His delirium was likely related to his UTI. He denies any hallucinations or cognitive issues since then . It is unlikley to be lewy body dementia Continue carbidopa/levodopa 25/100 tid senna for constipation Increase fluids Increase physical activity Medications: Changed From carbidopa-levodopa 25-100 mg 1 tab PO BID 90 days 180 tabs 1RF To carbidopa-levodopa 25-100 mg 1 tab PO TID 90 days 270 tabs 1RF Refilled sennosides (senna) 17.2 mg (2 x 8.6 mg) PO BEDTIME 30 days 60 tabs 3RF constipation Coding Level of Care Code New Pt Level 4 (90247) Diagnoses Parkinson's disease without dyskinesia or fluctuating manifestations G20.A1
[2023-09-02 13:56] VITALS: BP 126/78; PULSE 53; RESP 16; O2SAT 100; BMI 22.3
== END 2023-09-02 14:52 | disposition home or self-care (01) ==
PROVIDERS: PCP Internal Medicine; Visit Provider Psychiatry & Neurology Neurology
DX: G20.A1 Parkinson's disease without dyskinesia, without mention of fluctuations (principal)
CPT/HCPCS: 99204

== ENCOUNTER → 2023-09-02 13:42 | Outpatient (BNVA) | payer MEDICARE, SELFPAY | PROVIDERS: PCP Internal Medicine; Visit Provider Psychiatry & Neurology Neurology | DX: G20.A1 Parkinson's disease without dyskinesia, without mention of fluctuations (principal) | CPT/HCPCS: 99202 ==

== ENCOUNTER 2023-09-15 10:58 | Outpatient (REF) | payer SELFPAY ==
--- NOTE | 2023-09-15 12:49 | MHC.AU.HA3 ---
Hearing Instrument Follow-Up- Binaural Date of Visit: 09/15/23 Right Ear: Make, Model, Color, Serial Number: Oticon OPN S 3 PP SN: [id number] Color: Chroma Beige [employer] Repair Warranty: 01/11/2024 [employer] Loss and Damage Warranty: 01/11/2024 [facility] Service Plan: 01/11/2024 Battery Size: 13 Earmold/Dome/CShell/SlimTip:Microsonic Shell Dispensed By: [facility] Date of Fittin12/15/2020 Left Ear: Make, Model, Color, Serial Number: Cochlear Implant Follow-Up Summary: Vincenzo returned for routine hearing aid maintenance. He received a left-sided cochlear implant about eight months ago. 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 Cleaned his right hearing aid and ear mold. Vacuumed microphones. Ran through dehumidifier. Replaced tubing on both his new and old ear molds. A listening check demonstrated the hearing aid is amplifying clearly. Discussed hearing aid warranty ending on January 2024. Quoted $50.00 for future tubing changes. Recommendations: Hearing instrument maintenance in 6 months, or sooner if needed. Please contact our clinic with any questions or concerns. Diagnosis Code(s): Primary Diagnosis: H90.6 Mixed Hearing Loss, Bilateral Signature: Provider: Fredy Braun, [facility]
== END 2023-09-15 10:59 | disposition home or self-care (01) ==
LOC: HO.HAP 10:58
PROVIDERS: Visit Provider Internal Medicine
DX: Z13.89 Encounter for screening for other disorder (principal)

== ENCOUNTER 2023-09-23 07:41 | Outpatient (REF) | payer MEDICARE, SELFPAY ==
[2023-09-23 08:03] LABS: MANUAL DIFF FLAG NO
[2023-09-23 08:46] LABS: Basophils Percent Auto 0.3 % (0-2); Eosinophils Absolute Auto 0.3 X10*3/uL (0.0-0.4); Eosinophils Percent Auto 4.3 % (0-4); Hemoglobin 14.2 g/dl (14.0-18.0); Imm Gran Abs Auto 0.02 X10*3/uL (0.00-0.03); Imm Gran Pct Auto 0.3 % (0.0-0.4); Lymphocytes Absolute Auto 2.1 X10*3/uL (1.2-4.9); Lymphocytes Percent Auto 35.2 % (20-40); Mean Corpuscular HGB Conc 33.8 g/dl (31.0-36.0); Mean Corpuscular Hemoglobin 31.8 pg (27.0-33.0); Mean Corpuscular Volume 94.2 fL (80.0-98.0); Mean Platelet Volume 12.4 fL (9.4-12.4); Monocytes Absolute Auto 0.4 X10*3/uL (0.1-1.2); Monocytes Percent Auto 5.8 % (2-11); Neutrophils Absolute Auto 3.3 x10*3/uL (2.0-8.3); Neutrophils Percent Auto 54.1 % (45-73); Platelet Count 196 X10*3/uL (160-400); Red Blood Count 4.46 X10*6/uL (4.60-5.80); Red Cell Distribution Width 12.8 % (11.0-16.0)
[2023-09-23 09:18] LABS: Alanine Aminotransferase 23 U/L (0-40); Albumin Level 4.2 g/dL (3.5-5.0); Alkaline Phosphatase 82 U/L (39-117); Anion Gap 13 (12-20); Aspartate Amino Transferase 18 U/L (5-37); Bilirubin Total 0.7 mg/dL (0.0-1.0); Blood Urea Nitrogen 19 mg/dL (9-16); Calcium 9.4 mg/dL (8.4-10.2); Carbon Dioxide 27 mmol/L (22-29); Chloride 108 mmol/L (96-108); Cholesterol 106 mg/dL (<200); Estimated Glomerular Filt Rate > 60; Glucose Fasting 107 mg/dL (60-99); HDL Cholesterol 33 mg/dL (>40); LDL Cholesterol Calculated 59 mg/dL (<100); Potassium 4.5 mmol/L (3.3-5.1); Sodium 143 mmol/L (135-145); Total Protein 7.3 g/dL (6.5-8.0); Triglycerides 70 mg/dL (<150)
[2023-09-23 09:34] LABS: TSH reflex Free T4 0.61 uIU/mL (0.32-4.0); Vitamin D 25-OH Total 32.2 ng/mL (>30)
== END 2023-09-23 07:42 | disposition home or self-care (01) ==
LOC: HO.LAB 07:41
PROVIDERS: PCP Internal Medicine; Visit Provider Internal Medicine
DX: I10 Essential (primary) hypertension (principal); E55.9 Vitamin D deficiency, unspecified; E78.00 Pure hypercholesterolemia, unspecified
CPT/HCPCS: 36415; 80053; 80061; 82306; 84443; 85025

== ENCOUNTER 2023-09-24 07:00 | Outpatient (REF) | payer MEDICARE, SELFPAY ==
[2023-09-24 10:47] LABS: Appearance Urine Clear; Color Urine Yellow; Glucose Urine UA Negative (Negative); Leukocyte Esterase Urine Negative (Negative); Nitrite Urine Negative (Negative); PH 7.5 (5.0-9.0); Urine Blood Negative (Negative); Urine Ketones Negative (Negative); Urine Protein Negative (Neg-Trace)
== END 2023-09-24 07:01 | disposition home or self-care (01) ==
LOC: HO.LNP 07:00
PROVIDERS: Visit Provider Internal Medicine
DX: R30.0 Dysuria (principal)
CPT/HCPCS: 81003

== ENCOUNTER 2023-10-01 10:27 | Outpatient (AMB) | payer MEDICARE, SELFPAY ==
--- NOTE | 2023-10-01 10:38 | MHC.PC.OV ---
Vital Signs 10/01/23 10:40 Height 5 ft 6 in Weight 136 lb 8 oz BMI 22.0 BP 130/72 Blood Pressure Location Lt brachial Position Sitting Pulse 52 Pulse Source Pulse Oximeter Pulse Oximetry (%) 96 Oxygen Delivery Method Room Air Intake Visit Reasons: Parkinson's, constipation Intake Note: Patient is here to follow up on Parkinson`s, constipation. Consumer Insight Manager Required: No Cafeteria Clerk: Not Required per policy Accompanied by: Self / Same As Patient Allergies No Known Allergies [No Known Allergies*] Allergy (Verified 10/01/23 11:23) Medication List - Last Reconciled 10/01/23 by Diaz Avalos MD atorvastatin 40 mg PO BEDTIME 90 days carbidopa-levodopa 25-100 mg 1 tab PO TID 90 days escitalopram oxalate 5 mg PO DAILY 30 days finasteride 5 mg PO DAILY 90 days fluticasone propionate 50 mcg/actuation 2 sprays intranasal DAILY PRN 30 days lisinopril 5 mg PO DAILY metoprolol succinate ER 25 mg PO DAILY sennosides (senna) 17.2 mg (2 x 8.6 mg) PO BEDTIME 30 days tamsulosin 0.4 mg PO BEDTIME Tobacco use date assessed: 10/01/23 Fall risk assessment: No Falls in past year Last assessed Fall Risk: 10/01/23 Dental Screening Dental Screen Date: 10/01/23 Did you have a dental visit in the last 12 months?: Yes Did you have a dental problem in the last 6 months where you did not have access to dental care?: No Was dental information given to patient?: Patient has dentist HPI Parkinson's, constipation HPI Details Patient comes in today for his follow up visit States that he feels okay Was started additionally on Finasteride by urology recently - was reportedly diagnosed with an enlarged prostate He was also seen by Dr. Aguilar for a second opinion a few months ago and was diagnosed with Lewy body dementia and started additionally on Seroquel PRN; his Sinemet was also increased to TID dosing Still has on and off dizziness and unsteadiness; denies any headaches He denies any chest pains, no increased SOB No nausea/vomiting, no abdominal pain No change in bowel habits noted Needs a couple of his Rx refilled Had his follow up labs done last week - to discuss his results [facility] Medical History Benign prostate hyperplasia Parkinson's disease without dyskinesia or fluctuating manifestations Erectile dysfunction Impaired fasting glucose Hearing impairment Parkinson's disease Pure hypercholesterolemia Benign essential hypertension Surgical History History of cochlear implant (~01/03/23) History of hernia surgery Family History Father No problems noted. Mother No problems noted. Social History Household Members: None Housing: House Do you presently have visiting nurse or other home services: No Alcohol intake: current Alcohol intake frequency: holidays/special occasions only Alcohol type: beer Comment: occasionally Patient Tobacco Use Status: Former Tobacco user Tobacco use type: Cigarette e-Cigarette/Vaping Use: Never Used Second Hand Smoke Exposure: No service: No Current occupational status: retired Cognitive needs: No Hearing needs: Yes (hearing aide) Vision needs: Yes (reading glasses) Questionnaire PHQ-9 Over the last 2 weeks, how often have you been bothered by any of the following problems? Depression Screening Interpretation: Negative Depression Screening Done: Yes Source: Developed by Drs. Flo Luciano, Nicole Keller, Misael Cui and colleagues, with an educational radha from [employer]. Thrive Questionnaire Date Thrive assessed: 05/30/23 Currently or been in a relationship where the following occur: no concerns reported ZIA-7 AMB Questionnaire ZIA-7 Date ZIA - 7 assessed: 05/30/23 Source: Developed by Drs. Flo Luciano, Nicole Keller, Misael Cui and colleagues, with an educational radha from [employer]. Review of Systems Const Denies chills, Reports fatigue (mild), Denies fever(s) and Denies headache(s) ENT Denies dysphagia, Reports dizziness (on and off, mostly when he changes position too quickly), Denies otalgia, Denies headache(s), Denies neck pain, Denies odynophagia and Denies sore throat Card Denies chest pain, Denies palpitations and Denies dyspnea Resp Denies cough and Denies dyspnea GI Denies abdominal pain, Reports constipation, Denies dysphagia, Denies heartburn, Denies diarrhea, Denies nausea, Denies odynophagia and Denies vomiting Denies difficulty urinating, Denies dysuria, Denies nocturia, Reports urinary frequency, Reports urinary hesitancy and Reports urinary urgency Musc Denies neck pain Neuro Reports dizziness (on and off, mostly when he changes position too quickly), Denies headache(s) and Reports tremor(s) (on and off mild shaking of both hands lately) Endo Reports fatigue (mild) and Denies palpitations Physical exam (Primary Care) Vital Signs: Last Vital Signs Pulse 52 10/01/23 10:40 BP 130/72 10/01/23 10:40 Pulse Ox 96 10/01/23 10:40 Oxygen Delivery Method Room Air 10/01/23 10:40 BMI result Body Mass Index 22.0 Tobacco/Smoking Status: Tobacco use Status Tobacco use date assessed 10/01/23 10/01/23 10:45 Patient Tobacco Use Status Former Tobacco user 10/01/23 10:45 Tobacco use type Cigarette 10/01/23 10:45 e-Cigarette/Vaping Use Never Used 10/01/23 10:45 Depression Screening Interpretation: Negative Thrive Assessment: Date of Thrive Assessment Date Thrive assessed 05/30/23 10/01/23 10:45 Currently or been in a relationship where the following occur: no concerns reported Const General: no acute distress and alert HENMT Ears: TM's normal bilaterally and EAC's normal Throat: Yes posterior oropharynx normal and Yes tonsils normal (no TP congestion noted) Neck Neck: Yes no lymphadenopathy and Yes supple Resp Auscultation: clear to auscultation bilaterally, no rales and no wheezes Cardio Rate: regular rate Rhythm: regular rhythm Heart sounds: no murmurs GI Palpation (GI): Soft to palpation and nontender Auscultation: normal bowel sounds Neuro Motor exam (neuro): Tremors during motor activity present (noted in both hands) Extrem Other: (+) mild resting tremors noted in both hands General: Yes no clubbing, cyanosis or edema Results Reviewed Results Reviewed: Laboratory Tests 09/23/23 08:01 WBC 6.0 Hgb 14.2 Hct 42.0 Plt Count 196 D Sodium 143 Potassium 4.5 Creatinine 1.05 Estimated GFR > 60 Fasting Glucose 107 H Calcium 9.4 AST 18 ALT 23 Triglycerides 70 Cholesterol 106 LDL Cholesterol, Calc 59 HDL Cholesterol 33 L 25-OH Vitamin D Total 32.2 TSH 0.61 Assessment and Plan Assessment & Plan (1) Parkinson's disease without dyskinesia or fluctuating manifestations: Comment: Tremor predominant Code(s): G20.A1 - Parkinson's disease without dyskinesia, without mention of fluctuations Plan: Continue Carbidopa-Levodopa 25-100 mg TID Follow-up with Neurology as scheduled (2) Lewy body dementia: Code(s): G31.83 - Neurocognitive disorder with Lewy bodies; F02.80 - Dementia in other diseases classified elsewhere, unspecified severity, without behavioral disturbance, psychotic disturbance, mood disturbance, and anxiety Qualifiers: Dementia severity: unspecified severity Dementia behavioral or psychological symptom: with agitation Qualified Code(s): G31.83 - Neurocognitive disorder with Lewy bodies; F02.811 - Dementia in other diseases classified elsewhere, unspecified severity, with agitation Plan: Continue Quetiapine 25 mg QD PRN for agitation Family has reportedly been advised that patient should not be living alone and should not be allowed to drive anymore (3) Pure hypercholesterolemia: Code(s): E78.00 - Pure hypercholesterolemia, unspecified Plan: Results of his labs done last week reviewed and discussed with patient Reinforced low cholesterol diet Continue Atorvastatin 40 mg QD Will recheck his labs and fasting lipids in 4 months for follow-up (4) Benign essential hypertension: Code(s): I10 - Essential (primary) hypertension Plan: Reinforced low-sodium diet - goal is systolic BP of at least 140 mm or less Continue Lisinopril 5 mg QD and Metoprolol ER 25 mg QD (5) Constipation: Code(s): K59.00 - Constipation, unspecified Qualifiers: Constipation type: unspecified constipation type Qualified Code(s): K59.00 - Constipation, unspecified Plan: Reinforced increased oral fluids and dietary fiber Continue Senna 8.6 mg 2 tablets (17.2 mg) QD He was also previously referred to GI for further evaluation and management (6) Benign prostate hyperplasia: Code(s): N40.0 - Benign prostatic hyperplasia without lower urinary tract symptoms Qualifiers: Lower urinary tract symptom presence: symptoms present Lower urinary tract symptom detail: urinary frequency Qualified Code(s): N40.1 - Benign prostatic hyperplasia with lower urinary tract symptoms; R35.0 - Frequency of micturition Plan: Patient was recently started on Finasteride 5 mg QD by urology Continue Tamsulosin 0.4 mg Q HS Follow up with urology as scheduled (7) Anxiety: Code(s): F41.9 - Anxiety disorder, unspecified Plan: Continue Escitalopram 5 mg QD - Rx refilled Plan He declined flu vaccine today - states that he has not gotten a flu shot in over 10 years and is afraid to just start getting it now Follow up in 4 months Orders: Orders Lipid Panel 4 Months E78.00 - Pure hypercholesterolemia, unspecified TSH reflex Free T4 4 Months E78.00 - Pure hypercholesterolemia, unspecified UA CC w/rflx Micro + Cult 4 Months R30.0 - Dysuria Comprehensive Huntington. Panel Fast 4 Months E78.00 - Pure hypercholesterolemia, unspecified Complete Blood Count Auto Diff 4 Months I10 - Essential (primary) hypertension Vitamin B12 and Folate 4 Months E53.8 - Deficiency of other specified B group vitamins Vitamin D 25-OH Total 4 Months E55.9 - Vitamin D deficiency, unspecified Medications: Changed From escitalopram oxalate 5 mg PO DAILY 30 days 30 tabs 3RF To escitalopram oxalate 5 mg PO DAILY 90 days 90 tabs 1RF Refilled atorvastatin 40 mg PO BEDTIME 90 days 90 tabs 1RF Coding Level of Care Code Est Pt Level 4 (50800) Diagnoses Parkinson's disease without dyskinesia or fluctuating manifestations G20.A1 Lewy body dementia with agitation, unspecified dementia severity G31.83; F02.811 Dementia severity: unspecified severity Dementia behavioral or psychological symptom: with agitation Pure hypercholesterolemia E78.00 Benign essential hypertension I10 Constipation, unspecified constipation type K59.00 Constipation type: unspecified constipation type Benign prostatic hyperplasia with urinary frequency N40.1; R35.0 Lower urinary tract symptom presence: symptoms present Lower urinary tract symptom detail: urinary frequency Anxiety F41.9
[2023-10-01 10:40] VITALS: BP 130/72; PULSE 52; O2SAT 96; BMI 22.0
== END 2023-10-01 11:27 | disposition home or self-care (01) ==
PROVIDERS: PCP Internal Medicine; Visit Provider Internal Medicine
DX: G20.A1 Parkinson's disease without dyskinesia, without mention of fluctuations (principal); G31.83 Neurocognitive disorder with Lewy bodies; F02.811 Dementia in other diseases classified elsewhere, unspecified severity, with agitation; E78.00 Pure hypercholesterolemia, unspecified; I10 Essential (primary) hypertension; K59.00 Constipation, unspecified; N40.1 Benign prostatic hyperplasia with lower urinary tract symptoms; R35.0 Frequency of micturition; F41.9 Anxiety disorder, unspecified
CPT/HCPCS: 99214

== ENCOUNTER 2023-12-24 13:19 | Outpatient (REF) | payer OTHER, SELFPAY ==
[2023-12-24 13:46] LABS: MANUAL DIFF FLAG NO
[2023-12-24 14:07] LABS: Basophils Percent Auto 0.1 % (0-2); Eosinophils Absolute Auto 0.2 X10*3/uL (0.0-0.4); Eosinophils Percent Auto 3.1 % (0-4); Hematocrit 40.5 % (42.0-52.0); Hemoglobin 13.8 g/dl (14.0-18.0); Imm Gran Abs Auto 0.03 X10*3/uL (0.00-0.03); Imm Gran Pct Auto 0.4 % (0.0-0.4); Lymphocytes Absolute Auto 2.2 X10*3/uL (1.2-4.9); Lymphocytes Percent Auto 29.2 % (20-40); Mean Corpuscular HGB Conc 34.1 g/dl (31.0-36.0); Mean Corpuscular Hemoglobin 32.2 pg (27.0-33.0); Mean Corpuscular Volume 94.6 fL (80.0-98.0); Monocytes Absolute Auto 0.5 X10*3/uL (0.1-1.2); Monocytes Percent Auto 6.8 % (2-11); Neutrophils Absolute Auto 4.5 x10*3/uL (2.0-8.3); Neutrophils Percent Auto 60.4 % (45-73); Platelet Count 217 X10*3/uL (160-400); Red Blood Count 4.28 X10*6/uL (4.60-5.80); Red Cell Distribution Width 12.9 % (11.0-16.0); White Blood Count 7.5 X10*3/uL (4.8-10.8)
[2023-12-24 14:34] LABS: Appearance Urine Clear; Color Urine Dark Yellow; Glucose Urine UA Negative (Negative); Leukocyte Esterase Urine Negative (Negative); Nitrite Urine Negative (Negative); PH 5.5 (5.0-9.0); Urine Blood Negative (Negative); Urine Ketones Trace mg/dL (Negative); Urine Protein Negative (Neg-Trace)
[2023-12-24 14:56] LABS: Alanine Aminotransferase 5 U/L (0-40); Albumin Level 4.3 g/dL (3.5-5.0); Alkaline Phosphatase 72 U/L (39-117); Anion Gap 11 (12-20); Aspartate Amino Transferase 17 U/L (5-37); Bilirubin Total 0.9 mg/dL (0.0-1.0); Blood Urea Nitrogen 28 mg/dL (9-16); Calcium 9.2 mg/dL (8.4-10.2); Carbon Dioxide 28 mmol/L (22-29); Chloride 104 mmol/L (96-108); Cholesterol 106 mg/dL (<200); Estimated Glomerular Filt Rate 60; Glucose Fasting 117 mg/dL (60-99); HDL Cholesterol 35 mg/dL (>40); LDL Cholesterol Calculated 54 mg/dL (<100); Potassium 4.6 mmol/L (3.3-5.1); Sodium 138 mmol/L (135-145); Total Protein 7.4 g/dL (6.5-8.0); Triglycerides 87 mg/dL (<150)
[2023-12-24 15:03] LABS: TSH reflex Free T4 0.34 uIU/mL (0.32-4.0); Vitamin D 25-OH Total 29.5 ng/mL (>30)
[2023-12-24 15:58] LABS: Folate 6.9 ng/mL (> or = 4.0); Vitamin B12 651 pg/mL (200-900)
[2023-12-24 16:08] LABS: Prostate Specific Antigen 2.66 ng/mL (<0.05-4.0)
== END 2023-12-24 13:20 | disposition home or self-care (01) ==
LOC: HO.LAB 13:19
PROVIDERS: PCP Internal Medicine; Visit Provider Nurse Practitioner Family
DX: Z12.5 Encounter for screening for malignant neoplasm of prostate (principal); E53.8 Deficiency of other specified B group vitamins; E78.00 Pure hypercholesterolemia, unspecified; R30.0 Dysuria; I10 Essential (primary) hypertension; E55.9 Vitamin D deficiency, unspecified
CPT/HCPCS: 36415; 51798; 80053; 80061; 81003; 82306; 82607; 82746; 84153; 84443; 85025; 99212

== ENCOUNTER 2023-12-24 13:19 | Outpatient (AMB) | payer MEDICARE, MEDICAID, OTHER, SELFPAY ==
--- NOTE | 2023-12-24 13:50 | A.OFFVIS_ITS ---
Intake Intake Visit Reasons: follow up/PSA Intake Note: Patient presents for follow up visit for frequency and recurrent uti Urology Medications: finasteride, tamsulosin (unsure if patient is taking) Blood Thinner: none PVR: 30ml's Dental Sales Representative Required: No Accompanied by: Son Allergies No Known Allergies [No Known Allergies*] Allergy (Verified 12/24/23 20:42) Medication List - Last Reconciled 12/24/23 by DIONISIO English-BENEDICTO atorvastatin 40 mg PO BEDTIME 90 days carbidopa-levodopa 25-100 mg 1 tab PO TID 90 days escitalopram oxalate 5 mg PO DAILY 90 days finasteride 5 mg PO DAILY 90 days fluticasone propionate 50 mcg/actuation 2 sprays intranasal DAILY PRN 30 days lisinopril 5 mg PO DAILY metoprolol succinate ER 25 mg PO DAILY sennosides (senna) 17.2 mg (2 x 8.6 mg) PO BEDTIME 30 days tamsulosin 0.4 mg PO BEDTIME HPI HPI Comments History of Present Illness Details Vincenzo is a very pleasant 73-year-old [place] male patient of Dr. Avalos who is accompanied by his son Solomon at today's office visit. He has a past medical history of erectile dysfunction, hearing impairment, Parkinson's disease, hypercholesteremia, and Lewy bodies dementia. Patient presents to the office today for follow-up of his elevated PSA, renal cysts, and enlarged prostate. In discussion with the patient today he reports to be taking finasteride and Flomax as prescribed. He reports noting retrograde ejaculation with masturbation. However, discussed possibly related to side effects of urological medications. Recent PSA results reviewed with the patient and his son today. PSAs are as follows: 08/28--7.2 % free PSA 21%. 12/27--2.7 Previous workup has included a retroperitoneal ultrasound noting right kidney with no calculi or hydronephrosis. Multiple simple renal cyst the largest mid pole 8 x 7 x 5 mm. Left kidney with no calculi, and or hydronephrosis. There are simple cyst upper pole 7 x 8 x 7 mm and 5 x 5 x 5 mm. The bladder is well distended and normal. Bilateral ureteral jets are demonstrated. Pre void bladder volume is approximately 230 mL. Postvoid bladder volumes proximally 20 mL. Enlarged heterogeneous prostate causing inferior and intentation of the urinary bladder. Prostate volume is approximately 90 mLs. Discussed at length potential causes of elevated PSA. He currently denies any bothersome urinary issues or concerns. He does report nocturia times 1 however does not find this bothersome. He otherwise denies urinary urgency, urinary frequency, incontinence, hematuria, dysuria, foul smelling urine, changes to urinary stream, flank pain, fever, and or chills. Unable to obtain urine for urinalysis however PVR 30 mL. Lab urinalysis results reviewed with the patient today. He otherwise offers no other issues or concerns at this time. [facility] Medical History Benign prostate hyperplasia Parkinson's disease without dyskinesia or fluctuating manifestations Erectile dysfunction Impaired fasting glucose Hearing impairment Parkinson's disease Pure hypercholesterolemia Benign essential hypertension Surgical History History of cochlear implant (~01/03/23) History of hernia surgery Family History Father No problems noted. Mother No problems noted. Social History Household Members: None Housing: House Do you presently have visiting nurse or other home services: No Alcohol intake: current Alcohol intake frequency: holidays/special occasions only Alcohol type: beer Comment: occasionally Patient Tobacco Use Status: Former Tobacco user Tobacco use type: Cigarette e-Cigarette/Vaping Use: Never Used Second Hand Smoke Exposure: No service: No Current occupational status: retired Cognitive needs: No Hearing needs: Yes (hearing aide) Vision needs: Yes (reading glasses) Review of Systems Const Unobtainable due to mental condition Reports as per HPI Eyes Reports no additional complaints ENT Reports as per HPI Card Reports as per HPI Resp Reports no additional complaints GI Reports no additional complaints Reports as per HPI Musc Reports as per HPI Neuro Reports as per HPI Psych Reports no additional complaints Endo Reports no additional complaints Zheng/Lymph Reports no additional complaints Aller/Immun Reports no additional complaints Physical Exam Const General: cooperative, healthy appearing, comfortable, no acute distress, well developed, alert and awake Orientation/consciousness: oriented to person Limitations: no limitations HEENT Head: Yes normal to inspection, Yes normocephalic and Yes atraumatic Ears: hearing grossly normal bilaterally Eyes General: appearance normal, both eyes and all related structures Neck Neck: Yes normal visual inspection and Yes trachea midline Chest Chest palpation & inspection: normal inspection of the chest Resp Effort & Inspection: normal respiratory effort and able to speak in complete sentences Cardio Rate: regular rate GI Inspection: Yes normal to inspection General: Yes no CVA tenderness Back/Spine/Pelvis Back: no CVA tenderness Skin General skin exam: no rashes or lesions noted Neuro Other: tremors noted bilaterally General: oriented to person Extrem General: Yes normal to inspection Psych Appearance: grossly normal and well kempt Mental Status: mental status grossly normal Speech and movement: Normal speech and movement present and Clear speech present Affect: normal affect Attitude: cooperative Thought process: Normal thought process present Thought content: Normal thought content present Insight: Fair insight present (Psych) Judgement: Fair judgement present (Psych) Office Procedures Post Void Residual Post Residual Void Post Void Residual (PVR): 30 [id number] Void Residual by ultrasound Assessment & Plan Assessment & Plan (1) Elevated PSA: Code(s): R97.20 - Elevated prostate specific antigen [PSA] (2) Benign prostate hyperplasia: Code(s): N40.0 - Benign prostatic hyperplasia without lower urinary tract symptoms Qualifiers: Lower urinary tract symptom presence: symptoms present Lower urinary tract symptom detail: urinary frequency Qualified Code(s): N40.1 - Benign prostatic hyperplasia with lower urinary tract symptoms; R35.0 - Frequency of micturition (3) Enlarged prostate: Code(s): N40.0 - Benign prostatic hyperplasia without lower urinary tract symptoms Plan Recent urinalysis results that were obtained at lab today were reviewed with the patient his son today; as noted above. PVR 30 mL Recent PSA results reviewed with the patient and his son today; as noted above. Continue Flomax and finasteride as discussed and prescribed. Discussed at length potential causes of retrograde ejaculation Patient otherwise denies any bothersome urinary issues or concerns at this time. Reports to be happy with current voiding parameters. Discussed, educated, and stressed the importance of continuing to drink plenty of water daily. Will obtain PSA in 4 months. Follow-up in 4 months with PVR and PSA; or sooner with any issues, concerns, and or questions. Orders: Orders AMB Post Void Residual by ultrasound Today R39.15 - Urgency of urination Prostate Specific Antigen 4 Months R97.20 - Elevated prostate specific antigen [PSA] Patient Instructions: The patient had an opportunity to ask questions regarding the treatment plan. All questions were answered. Physical exam, labs, and imaging were discussed and reviewed in detail. As well as risks, benefits, and discussion of treatment choices. No major barriers to understanding were identified. The patient expressed understanding and agreement with the above treatment plan. The patient was made aware they should contact our office by phone for worsening of their current condition, the appearance of new symptoms, or with any questions or concerns. Compliance is encouraged with any medications and follow up testing that is ordered. It is a privilege to be allowed the opportunity to participate in? your urological care.? Again, if you have any questions or concerns If you have any questions or concerns please do not hesitate to contact me. The office is [phone]. This note is constructed using voice recognition software. While every effort has been made to ensure accuracy shipping and receiving operator errors may have been included. Yours sincerely, MALIK English Coding Level of Care Code Est Pt Level 3 (63987) Diagnoses Elevated PSA R97.20 Benign prostatic hyperplasia with urinary frequency N40.1; R35.0 Lower urinary tract symptom presence: symptoms present Lower urinary tract symptom detail: urinary frequency Enlarged prostate N40.0 CPT Codes Post Residual Void - PVR CPT Code: [id number] Void Residual by ultrasound ([id number])
== END 2023-12-24 14:28 | disposition home or self-care (01) ==
PROVIDERS: PCP Internal Medicine; Visit Provider Nurse Practitioner Family
DX: R97.20 Elevated prostate specific antigen [PSA] (principal); N40.1 Benign prostatic hyperplasia with lower urinary tract symptoms; R35.0 Frequency of micturition; N40.0 Benign prostatic hyperplasia without lower urinary tract symptoms
CPT/HCPCS: 99213

== ENCOUNTER 2024-02-17 12:31 | Outpatient (AMB) | payer OTHER, MEDICAID, SELFPAY ==
[2024-02-17 13:02] VITALS: BP 110/68; PULSE 63; RESP 16; O2SAT 99; BMI 21.8
--- NOTE | 2024-02-17 13:02 | MHC.OFFVIS ---
Vital Signs 02/17/24 13:02 Height 5 ft 6 in Weight 135 lb 4 oz BMI 21.8 BP 110/68 Blood Pressure Location Rt brachial Position Sitting Respiration 16 Pulse 63 Pulse Source Pulse Oximeter Pulse Oximetry (%) 99 Oxygen Delivery Method Room Air Intake Visit Reasons: 4 mo f/u - Parkinson-LVM Intake Note: Pt presents to the office for a 6 month follow up for Parkinson's. Photostatic Copy Maker Required: No Allergies No Known Allergies [No Known Allergies*] Allergy (Verified 02/17/24 13:02) Medication List - Last Reconciled 02/17/24 by Zo Jones MD atorvastatin 40 mg PO BEDTIME 90 days carbidopa-levodopa 25-100 mg 1.5 tabs PO QID 90 days escitalopram oxalate 5 mg PO DAILY 90 days finasteride 5 mg PO DAILY 90 days fluticasone propionate 50 mcg/actuation 2 sprays intranasal DAILY PRN 30 days lisinopril 5 mg PO DAILY metoprolol succinate ER 25 mg PO DAILY sennosides (senna) 17.2 mg (2 x 8.6 mg) PO BEDTIME 30 days tamsulosin 0.4 mg PO BEDTIME HPI Comments Details: 73y/o Right handed male comes for follow up of parkinsons disease.He was trialed on carbidopa/levodopa 25/100 1 tab tid and increased to 2tabs tid but he developed orthostatic hypotension. I changed it to 1.5 tabs qid and his dizziness has been better. He started drinking more fluids as well. No hallucinations. He has vivid dreams - he used to have sleep talking. History-He started noticing tremors - rest about 2-3 years ago L>R He was diagnosed with parkinsons disease .He was started on carbidopa/levodopa and it helped.In summer 2022 - he had delirium , diagnosed with UTI.He was admitted at [facility] , he was very confused and was told that he was sundowning. He saw after that and diagnosed with Diffuse Lewy body dementia. He is home now and has been stable since his UTI was treated. Cognition- normal SLeep- he has dream enactment Mood- he takes meds for anxiety SPeech-same Swallowing-normal No drooling Handwriting-good He is able to dress, shower. Gait- good, no falls recently ( during UTI he had a fall) Bowel movements- constipation No double vision Vertigo with change in head positions. Hallucinations-during UTI Sleep- good PFSH Medical History Benign prostate hyperplasia Parkinson's disease without dyskinesia or fluctuating manifestations Erectile dysfunction Impaired fasting glucose Hearing impairment Parkinson's disease Pure hypercholesterolemia Benign essential hypertension Surgical History History of cochlear implant (~01/03/23) History of hernia surgery Family History Father No problems noted. Mother No problems noted. Social History Household Members: None Housing: House Do you presently have visiting nurse or other home services: No Alcohol intake: current Alcohol intake frequency: holidays/special occasions only Alcohol type: beer Comment: occasionally Patient Tobacco Use Status: Former Tobacco user Tobacco use type: Cigarette e-Cigarette/Vaping Use: Never Used Second Hand Smoke Exposure: No service: No Current occupational status: retired Cognitive needs: No Hearing needs: Yes (hearing aide) Vision needs: Yes (reading glasses) Physical Exam Vital Signs: Last Vital Signs Pulse 63 02/17/24 13:02 Resp 16 02/17/24 13:02 BP 110/68 02/17/24 13:02 Pulse Ox 99 02/17/24 13:02 Oxygen Delivery Method Room Air 02/17/24 13:02 BMI result Body Mass Index 21.8 Const General: cooperative, healthy appearing, comfortable and no acute distress Nutritional Appearance: average body habitus Orientation/consciousness: patient oriented x3 Eyes Pupils: Equal, round and reactive pupils present Neuro Other: Mild decreased blink , facial expression Mild dysprosody Alphonso moderate amplitude Rest tremors L>R No action or postural tremors FFM and foot taps mildly decreased mild L>R Gait- mild stoop, slow good stride , decreased arm swings alphonso L>R General: patient oriented x3 and moves all extremities Cranial nerves: Yes Facial sensation intact/muscles of mastication intact, Yes Equal, round and reactive pupils present, No Bilaterally intact EOM present, Yes Nystagmus not present, Yes Normal facial strength present, Yes Midline tongue present and Yes Ability to bilaterally elevate shoulders present Cognition (Neuro): normal cognition Motor exam (neuro): 5/5 motor strength present throughout Coordination: [id number] test normal Assessment & Plan Assessment & Plan (1) Parkinson's disease without dyskinesia or fluctuating manifestations: Comment: Tremor predominant Code(s): G20.A1 - Parkinson's disease without dyskinesia, without mention of fluctuations Category: Medical Plan Discussed the diagnosis in detail His delirium was likely related to his UTI. He denies any hallucinations or cognitive issues since then . It is unlikley to be lewy body dementia Continue carbidopa/levodopa 25/100 1.5 tab qid senna for constipation Increase fluids Increase physical activity Will consider venlafaxine for thermoregulatory issues I suggested buying cooling shirts for night sweats Will consider melatonin 3mg qhs Medications: New melatonin 3 mg PO BEDTIME PRN 30 caps 6RF sleep Changed From carbidopa-levodopa 25-100 mg 1 tab PO TID 90 days 270 tabs 1RF To carbidopa-levodopa 25-100 mg 1.5 tabs PO QID 90 days 540 tabs 6RF Coding Level of Care Code Est Pt Level 4 (00642) Complex EM visit Add On G2211 Diagnoses Parkinson's disease without dyskinesia or fluctuating manifestations G20.A1
== END 2024-02-17 13:39 | disposition home or self-care (01) ==
PROVIDERS: PCP Internal Medicine; Visit Provider Psychiatry & Neurology Neurology
DX: G20.A1 Parkinson's disease without dyskinesia, without mention of fluctuations (principal)
CPT/HCPCS: 99214; G2211

== ENCOUNTER → 2024-02-17 12:31 | Outpatient (BNVA) | payer OTHER, SELFPAY | PROVIDERS: PCP Internal Medicine; Visit Provider Psychiatry & Neurology Neurology | DX: G20.A1 Parkinson's disease without dyskinesia, without mention of fluctuations (principal); Z79.899 Other long term (current) drug therapy | CPT/HCPCS: 99212 ==

== ENCOUNTER 2024-02-27 08:28 | Outpatient (REF) | payer OTHER, SELFPAY ==
--- NOTE | 2024-02-27 12:16 | MHC.AU.HA3 ---
Hearing Instrument Follow-Up- Binaural Date of Visit: 02/27/24 Right Ear: Make, Model, Color, Serial Number: Oticon OPN S 3 PP SN: [id number] Color: Chroma Beige [employer] Repair Warranty: 01/11/2024 [employer] Loss and Damage Warranty: 01/11/2024 [facility] Service Plan: 01/11/2024 Battery Size: 13 Parachute Line Tier/Slim Tube: Earmold/Dome/CShell/SlimTip:Microsonic Shell Type of Wax Guard: Dispensed By: [facility] Date of Fittin12/15/2020 Left Ear: Make, Model, Color, Serial Number: Cochlear Implant Follow-Up Summary: Vincenzo is seen for tubing change today. He is wearing his back up Phonak aid, reporting that the newer Oticon BTE is not working. Cleaned both aids, both earmolds, retubed both. Listening check positive. Vincenzo reports that the newer aid does not sound as strong and clear as his back up aid. Recommended updated eval for proper hearing aid adjustment. He will continue wearing his preferred back up aid in the meantime. He noted that he doesn't feel his CI is working very well for him. Advised to return to [facility] for CI services. Recommendations: Recommendations: Update audiogram and hearing aid adjustment. Diagnosis Code(s): Primary Diagnosis: H90.3 Bilateral Sensorineural Hearing Loss Signature: Provider: Fredy Mckeon, CCC-A
== END 2024-02-27 08:29 | disposition home or self-care (01) ==
LOC: HO.HAP 08:28
PROVIDERS: Visit Provider Internal Medicine
DX: Z46.1 Encounter for fitting and adjustment of hearing aid (principal); H90.3 Sensorineural hearing loss, bilateral
CPT/HCPCS: 92593; 99499

== ENCOUNTER 2024-04-27 11:45 | Outpatient (AMB) | payer OTHER, SELFPAY ==
--- NOTE | 2024-04-27 11:52 | MHC.OFFVIS ---
Intake Visit Reasons: 4m/PSA Intake Note: Patient presents for follow up visit for frequency and recurrent uti Urology Medications: finasteride, tamsulosin Blood Thinner: none PVR: 26ml's Zinc Skimmer Required: No Accompanied by: Son Allergies No Known Allergies [No Known Allergies*] Allergy (Verified 04/27/24 21:43) Medication List - Last Reconciled 04/27/24 by DIONISIO English- atorvastatin 40 mg PO BEDTIME 90 days carbidopa-levodopa 25-100 mg 1.5 tabs PO QID 90 days escitalopram oxalate 5 mg PO DAILY 90 days finasteride 5 mg PO DAILY 90 days fluticasone propionate 50 mcg/actuation 2 sprays intranasal DAILY PRN 30 days lisinopril 5 mg PO DAILY melatonin 3 mg PO BEDTIME PRN metoprolol succinate ER 25 mg PO DAILY sennosides (senna) 17.2 mg (2 x 8.6 mg) PO BEDTIME 30 days tamsulosin 0.4 mg PO BEDTIME HPI Comments Details: Vincenzo is a very pleasant 73-year-old [place] male patient of Dr. Avalos who is accompanied by his son Solomon at today's office visit. He has a past medical history of erectile dysfunction, hearing impairment, Parkinson's disease, hypercholesteremia, and Lewy bodies dementia. Patient presents to the office today for follow-up of his elevated PSA, renal cysts, and enlarged prostate. In discussion with the patient today he reports to be doing and feeling well. When asked he reports compliance with finasteride and Flomax as prescribed. Recent PSA results reviewed with the patient today as noted and trended below.... 08/28 7.2 % free PSA 21%. 12/27 2.7, 04/28 2.5% free PSA 24% Previous workup has included a retroperitoneal ultrasound noting right kidney with no calculi or hydronephrosis. Multiple simple renal cyst the largest mid pole 8 x 7 x 5 mm. Left kidney with no calculi, and or hydronephrosis. There are simple cyst upper pole 7 x 8 x 7 mm and 5 x 5 x 5 mm. The bladder is well distended and normal. Bilateral ureteral jets are demonstrated. Pre void bladder volume is approximately 230 mL. Postvoid bladder volumes proximally 20 mL. Enlarged heterogeneous prostate causing inferior and intentation of the urinary bladder. Prostate volume is approximately 90 mLs. He currently denies any bothersome urinary issues or concerns. He denies urinary urgency, urinary frequency, incontinence, hematuria, dysuria, foul smelling urine, changes to urinary stream, flank pain, fever, and or chills. In office urinalysis results reviewed with the patient today. PVR 26 mL. He otherwise offers no other issues or concerns at this time. [facility] Medical History Benign prostate hyperplasia Parkinson's disease without dyskinesia or fluctuating manifestations Erectile dysfunction Impaired fasting glucose Hearing impairment Parkinson's disease Pure hypercholesterolemia Benign essential hypertension Surgical History History of cochlear implant (~01/03/23) History of hernia surgery Family History Father No problems noted. Mother No problems noted. Social History Household Members: None Housing: House Do you presently have visiting nurse or other home services: No Alcohol intake: current Alcohol intake frequency: holidays/special occasions only Alcohol type: beer Comment: occasionally Patient Tobacco Use Status: Former Tobacco user Tobacco use type: Cigarette e-Cigarette/Vaping Use: Never Used Second Hand Smoke Exposure: No service: No Current occupational status: retired Cognitive needs: No Hearing needs: Yes (hearing aide) Vision needs: Yes (reading glasses) Review of Systems Const Reports as per HPI Eyes Reports no additional complaints ENT Reports as per HPI Card Reports as per HPI Resp Reports no additional complaints GI Reports no additional complaints Reports as per HPI Musc Reports as per HPI Neuro Reports as per HPI Psych Reports no additional complaints Endo Reports no additional complaints Zheng/Lymph Reports no additional complaints Aller/Immun Reports no additional complaints Physical Exam Const General: cooperative, healthy appearing, comfortable, no acute distress, well developed, alert and awake Nutritional Appearance: thin Orientation/consciousness: oriented to person Limitations: no limitations HEENT Head: Yes normal to inspection, Yes normocephalic and Yes atraumatic Ears: hearing grossly normal bilaterally Eyes General: appearance normal, both eyes and all related structures Neck Neck: Yes normal visual inspection and Yes trachea midline Chest Chest palpation & inspection: normal inspection of the chest Resp Effort & Inspection: normal respiratory effort and able to speak in complete sentences Cardio Rate: regular rate GI Inspection: Yes normal to inspection General: Yes no CVA tenderness Back/Spine/Pelvis Back: no CVA tenderness Skin General skin exam: no rashes or lesions noted Neuro Other: tremors noted bilaterally General: oriented to person Extrem General: Yes normal to inspection Psych Appearance: grossly normal and well kempt Mental Status: mental status grossly normal Speech and movement: Normal speech and movement present and Clear speech present Affect: normal affect Attitude: cooperative Thought process: Normal thought process present Thought content: Normal thought content present Insight: Fair insight present (Psych) Judgement: Fair judgement present (Psych) Office Procedures Post Void Residual Post Residual Void Post Void Residual (PVR): 26 [id number] Void Residual by ultrasound Results AMB Urinalysis, Automated UA Leukoctes 0 Fariba/uL Last Edit by Carina Diazgonzalo on 04/27/24 12:23 UA Nitrite Negative Last Edit by Carina Diaz on 04/27/24 12:23 UA Urobilinogen 0.2 mg/dL Last Edit by Carina Diaz on 04/27/24 12:23 UA Protein 0 mg/dL Last Edit by [employer] Emily on 04/27/24 12:23 UA pH 6.0 Last Edit by Carina Diazgonzalo on 04/27/24 12:23 UA Blood 0 Juan/uL Last Edit by [employer] Emilygonzalo on 04/27/24 12:23 UA Specific [place] 1.025 Last Edit by [employer] Emilygonzalo on 04/27/24 12:23 UA Ketone Negative Last Edit by [employer] Diaz on 04/27/24 12:23 UA Bilirubin 0 mg/dL Last Edit by [employer] on 04/27/24 12:23 UA Glucose 0 mg/dL Last Edit by [employer] on 04/27/24 12:23 Results Reviewed Results Reviewed: Laboratory Last Values Urine pH (Auto) 6.0 04/27/24 12:21 Specific [place] (Auto) 1.025 04/27/24 12:21 Urine Protein (Auto) 0 mg/dL 04/27/24 12:21 Glucose (UA)(Auto) 0 mg/dL 04/27/24 12:21 Urine Ketones (Auto) Negative 04/27/24 12:21 Urine Blood (Auto) 0 Juan/uL 04/27/24 12:21 Urine Nitrite (Auto) Negative 04/27/24 12:21 Urine Bilirubin (Auto) 0 mg/dL 04/27/24 12:21 Urine Urobilinogen (Auto) 0.2 mg/dL 04/27/24 12:21 Leukocyte Esterase (Auto) 0 Fariba/uL 04/27/24 12:21 Assessment & Plan Assessment & Plan (1) Elevated PSA: Code(s): R97.20 - Elevated prostate specific antigen [PSA] Category: Medical (2) Benign prostate hyperplasia: Code(s): N40.0 - Benign prostatic hyperplasia without lower urinary tract symptoms Category: Medical Qualifiers: Lower urinary tract symptom presence: symptoms present Lower urinary tract symptom detail: urinary frequency Qualified Code(s): N40.1 - Benign prostatic hyperplasia with lower urinary tract symptoms; R35.0 - Frequency of micturition (3) Enlarged prostate: Code(s): N40.0 - Benign prostatic hyperplasia without lower urinary tract symptoms Category: Medical Plan In office urinalysis results reviewed with the patient today; as noted above. PVR 26 mL Recent PSA results reviewed with the patient and his son today; as noted above. Continue Flomax and finasteride as discussed and prescribed. Patient otherwise denies any bothersome urinary issues or concerns at this time. Reports to be happy with current voiding parameters. Will obtain PSA in 4 months. Follow-up in 4 months with PVR and PSA; or sooner with any issues, concerns, and or questions. Orders: Orders Prostate Specific Antigen 4 Months R97.20 - Elevated prostate specific antigen [PSA] AMB Urinalysis Automated Today Z13.9 - Encounter for screening, unspecified AMB Post Void Residual by ultrasound Today R35.1 - Nocturia Patient Instructions: The patient had an opportunity to ask questions regarding the treatment plan. All questions were answered. Physical exam, labs, and imaging were discussed and reviewed in detail. As well as risks, benefits, and discussion of treatment choices. No major barriers to understanding were identified. The patient expressed understanding and agreement with the above treatment plan. The patient was made aware they should contact our office by phone for worsening of their current condition, the appearance of new symptoms, or with any questions or concerns. Compliance is encouraged with any medications and follow up testing that is ordered. It is a privilege to be allowed the opportunity to participate in? your urological care.? Again, if you have any questions or concerns If you have any questions or concerns please do not hesitate to contact me. The office is [phone]. This note is constructed using voice recognition software. While every effort has been made to ensure accuracy magazine supervisor errors may have been included. Yours sincerely, MALIK English Coding Level of Care Code Est Pt Level 3 (32999) Complex EM visit Add On G2211 Diagnoses Elevated PSA R97.20 Benign prostatic hyperplasia with urinary frequency N40.1; R35.0 Lower urinary tract symptom presence: symptoms present Lower urinary tract symptom detail: urinary frequency Enlarged prostate N40.0 CPT Codes Post Residual Void - PVR CPT Code: 80399-[id number] Void Residual by ultrasound ([id number])
== END 2024-04-27 12:36 | disposition home or self-care (01) ==
PROVIDERS: PCP Internal Medicine; Visit Provider Nurse Practitioner Family
DX: R97.20 Elevated prostate specific antigen [PSA] (principal); N40.1 Benign prostatic hyperplasia with lower urinary tract symptoms; R35.0 Frequency of micturition; N40.0 Benign prostatic hyperplasia without lower urinary tract symptoms; Z13.9 Encounter for screening, unspecified
CPT/HCPCS: 99213; G2211

== ENCOUNTER → 2024-04-27 11:45 | Outpatient (BNVA) | payer OTHER, MEDICARE, SELFPAY | PROVIDERS: PCP Internal Medicine; Visit Provider Nurse Practitioner Family | DX: R97.20 Elevated prostate specific antigen [PSA] (principal); N40.1 Benign prostatic hyperplasia with lower urinary tract symptoms; R35.0 Frequency of micturition; Z79.899 Other long term (current) drug therapy | CPT/HCPCS: 51798; 81003; 99212 ==

== ENCOUNTER 2024-08-13 12:29 | Outpatient (REF) | payer OTHER, SELFPAY ==
[2024-08-13 13:38] LABS: Appearance Urine Clear; Color Urine Dark Yellow; Glucose Urine UA Negative (Negative); Leukocyte Esterase Urine Negative (Negative); Nitrite Urine Negative (Negative); PH 5.5 (5.0-9.0); Urine Blood Negative (Negative); Urine Ketones Trace mg/dL (Negative); Urine Protein Negative (Neg-Trace)
[2024-08-13 13:42] LABS: Bacteria Urine None Seen (None Seen); RBC Urine 0-2 /HPF (0-2); Squamous Epithelial Cell Urine 0-2 /HPF (0-2); WBC Urine 0-5 /HPF (0-5)
[2024-08-13 14:05] LABS: PSA,Total (Free>4and<10) 2.51 ng/mL (0.00-4.00)
== END 2024-08-13 12:30 | disposition home or self-care (01) ==
LOC: HO.LAB 12:29
PROVIDERS: Visit Provider Nurse Practitioner Family
DX: R97.20 Elevated prostate specific antigen [PSA] (principal); N40.0 Benign prostatic hyperplasia without lower urinary tract symptoms; R35.1 Nocturia; N40.1 Benign prostatic hyperplasia with lower urinary tract symptoms; R35.0 Frequency of micturition; R39.15 Urgency of urination; N39.0 Urinary tract infection, site not specified; Z12.5 Encounter for screening for malignant neoplasm of prostate
CPT/HCPCS: 36415; 81001; 84153; 87086

== ENCOUNTER 2024-08-26 12:56 | Outpatient (AMB) | payer OTHER, SELFPAY ==
[2024-08-26 13:03] VITALS: BP 118/78; BMI 21.8
--- NOTE | 2024-08-26 13:03 | A.OFFVIS_ITS ---
Vital Signs 08/26/24 13:03 Height 5 ft 6 in Weight 135 lb BMI 21.8 BP 118/78 Blood Pressure Location Rt brachial Position Sitting Intake Visit Reasons: follow up Parkinson Intake Note: Patient presents for follow up parkinson's Allergies No Known Allergies [No Known Allergies*] Allergy (Verified 08/26/24 13:05) Medication List - Last Reconciled 08/26/24 by Zo Jones MD atorvastatin 40 mg PO BEDTIME 90 days carbidopa-levodopa 25-100 mg 1.5 tabs PO QID 90 days escitalopram oxalate 5 mg PO DAILY 90 days finasteride 5 mg PO DAILY 90 days fluticasone propionate 50 mcg/actuation 2 sprays intranasal DAILY PRN 30 days lisinopril 5 mg PO DAILY melatonin 3 mg PO BEDTIME PRN metoprolol succinate ER 25 mg PO DAILY quetiapine 1/2 tab at 6 pm and 1/2 at bedtime orally bedtime; sennosides (senna) 17.2 mg (2 x 8.6 mg) PO BEDTIME 30 days tamsulosin 0.4 mg PO BEDTIME HPI Comments Details: 74y/o Right handed male comes for follow up of parkinsons disease.His tremors are worse according to his son but patient says he frequently misses a dose of medication. He was trialed on carbidopa/levodopa 25/100 1 tab tid and increased to 2tabs tid but he developed orthostatic hypotension. I changed it to 1.5 tabs qid and his dizziness has been better. He started drinking more fluids as well. No hallucinations. He has vivid dreams - he used to have sleep talking. Mood is stable.His sleep is OK - wakes once a night. His son reports 2 episodes of confusion during the evenings - he saw someone in the couch.He was started on quetipaine 12.5mg in the evening and 1/2 tab at bedtime . His hallucinations have resolved History-He started noticing tremors - rest about 2-3 years ago L>R He was diagnosed with parkinsons disease .He was started on carbidopa/levodopa and it helped.In summer 2022 - he had delirium , diagnosed with UTI.He was admitted at [facility] , he was very confused and was told that he was sundowning. He saw after that and diagnosed with Diffuse Lewy body dementia. He is home now and has been stable since his UTI was treated. Cognition- normal SLeep- he has dream enactment Mood- he takes meds for anxiety SPeech-same Swallowing-normal No drooling Handwriting-good He is able to dress, shower. Gait- good, no falls recently ( during UTI he had a fall) Bowel movements- constipation No double vision Vertigo with change in head positions. Hallucinations-during UTI Sleep- good COUNT INCLUDES THE [facility] Medical History (Updated 08/26/24 @ 13:18 by Zo Jones MD) Hallucinations Benign prostate hyperplasia Parkinson's disease without dyskinesia or fluctuating manifestations Erectile dysfunction Impaired fasting glucose Hearing impairment Parkinson's disease Pure hypercholesterolemia Benign essential hypertension Surgical History History of cochlear implant (~01/03/23) History of hernia surgery Family History Father No problems noted. Mother No problems noted. Social History Household Members: None Housing: House Do you presently have visiting nurse or other home services: No Alcohol intake: current Alcohol intake frequency: holidays/special occasions only Alcohol type: beer Comment: occasionally Patient Tobacco Use Status: Former Tobacco user Tobacco use type: Cigarette e-Cigarette/Vaping Use: Never Used Second Hand Smoke Exposure: No service: No Current occupational status: retired Cognitive needs: No Hearing needs: Yes (hearing aide) Vision needs: Yes (reading glasses) Physical Exam Vital Signs: Last Vital Signs BP 118/78 08/26/24 13:03 BMI result Body Mass Index 21.8 Const General: cooperative, healthy appearing, comfortable and no acute distress Nutritional Appearance: average body habitus Orientation/consciousness: patient oriented x3 Eyes Pupils: Equal, round and reactive pupils present Neuro Other: Mild decreased blink , facial expression Mild dysprosody Alphonso moderate amplitude Rest tremors L>R No action or postural tremors FFM and foot taps mildly decreased mild L>R Gait- mild stoop, slow good stride , decreased arm swings alphonso L>R General: patient oriented x3 and moves all extremities Cranial nerves: Yes Facial sensation intact/muscles of mastication intact, Yes Equal, round and reactive pupils present, No Bilaterally intact EOM present, Yes Nystagmus not present, Yes Normal facial strength present, Yes Midline tongue present and Yes Ability to bilaterally elevate shoulders present Cognition (Neuro): normal cognition Motor exam (neuro): 5/5 motor strength present throughout Coordination: [id number] test normal Assessment & Plan Assessment & Plan (1) Parkinson's disease without dyskinesia or fluctuating manifestations: Comment: Tremor predominant Code(s): G20.A1 - Parkinson's disease without dyskinesia, without mention of fluctuations Category: Medical (2) Hallucinations: Code(s): R44.3 - Hallucinations, unspecified Category: Medical Plan Continue carbidopa/levodopa 25/100 1.5 tab qid quetiapine 12.5mg q sherron and qhs senna for constipation Increase fluids Increase physical activity Will consider venlafaxine for thermoregulatory issues I suggested buying cooling shirts for night sweats Medications: Refilled quetiapine 1/2 tab at 6 pm and 1/2 at bedtime orally bedtime; 90 tabs 2RF Coding Level of Care Code Est Pt Level 4 (78983) Complex EM visit Add On G2211 Diagnoses Parkinson's disease without dyskinesia or fluctuating manifestations G20.A1 Hallucinations R44.3
== END 2024-08-26 13:28 | disposition home or self-care (01) ==
LOC: HO.HSMS 12:56
PROVIDERS: Visit Provider Psychiatry & Neurology Neurology
DX: G20.A1 Parkinson's disease without dyskinesia, without mention of fluctuations (principal); R44.3 Hallucinations, unspecified
CPT/HCPCS: 99214; G2211

== ENCOUNTER → 2024-08-26 12:56 | Outpatient (BNVA) | payer OTHER, SELFPAY | PROVIDERS: Visit Provider Psychiatry & Neurology Neurology | DX: G20.A1 Parkinson's disease without dyskinesia, without mention of fluctuations (principal); R44.3 Hallucinations, unspecified | CPT/HCPCS: 99212 ==

== ENCOUNTER 2024-10-05 14:21 | Outpatient (REF) | payer OTHER, SELFPAY ==
[2024-10-05 15:13] LABS: Urine Cytology See Pathology rpt
== END 2024-10-05 14:22 | disposition home or self-care (01) ==
LOC: HO.LNP 14:21
PROVIDERS: PCP Internal Medicine; Visit Provider Nurse Practitioner Family
DX: R97.20 Elevated prostate specific antigen [PSA] (principal); N40.1 Benign prostatic hyperplasia with lower urinary tract symptoms; R35.0 Frequency of micturition; N39.0 Urinary tract infection, site not specified; Z13.9 Encounter for screening, unspecified
CPT/HCPCS: 51798; 81003; 88112; 99212

== ENCOUNTER 2024-10-05 14:21 | Outpatient (AMB) | payer OTHER, SELFPAY ==
--- NOTE | 2024-10-05 14:22 | A.OFFVIS_ITS ---
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 Accompanied by: Son Allergies No Known Allergies [No Known Allergies*] Allergy (Verified 10/06/24 13:46) Medication List - Last Reconciled 10/06/24 by MALIK English atorvastatin 40 mg PO BEDTIME 90 days carbidopa-levodopa 25-100 mg 1.5 tabs PO QID 90 days escitalopram oxalate 5 mg PO DAILY 90 days finasteride 5 mg PO DAILY 90 days fluticasone propionate 50 mcg/actuation 2 sprays intranasal DAILY PRN 30 days lisinopril 5 mg PO DAILY melatonin 3 mg PO BEDTIME PRN metoprolol succinate ER 25 mg PO DAILY quetiapine 1/2 tab at 6 pm and 1/2 at bedtime orally bedtime; sennosides (senna) 17.2 mg (2 x 8.6 mg) PO BEDTIME 30 days tamsulosin 0.4 mg PO BEDTIME HPI Comments Details: Vincenzo is a very pleasant 74-year-old Amharic male patient of Dr. Avalos who is accompanied by his son Solomon at today's office visit. He has a past medical history of erectile dysfunction, hearing impairment, Parkinson's disease, hypercholesteremia, and Lewy bodies dementia. Patient presents to the office today for follow-up of his elevated PSA, renal cysts, and enlarged prostate. In discussion with the patient today he reports to be doing and feeling well. When asked he reports compliance with finasteride and Flomax as prescribed. Recent PSA results reviewed with the patient today as noted and trended below... 08/28 7.2 % free PSA 21%. 12/27 2.7, 04/28 2.5% free PSA 24%, 08/29 2.5 Previous workup has included a retroperitoneal ultrasound 08/28 noting right kidney with no calculi or hydronephrosis. Multiple simple renal cyst the largest mid pole 8 x 7 x 5 mm. Left kidney with no calculi, and or hydronephrosis. There are simple cyst upper pole 7 x 8 x 7 mm and 5 x 5 x 5 mm. The bladder is well distended and normal. Bilateral ureteral jets are demonstrated. Pre void bladder volume is approximately 230 mL. Postvoid bladder volumes proximally 20 mL. Enlarged heterogeneous prostate causing inferior and intentation of the urinary bladder. Prostate volume is approximately 90 mLs. He currently denies any bothersome urinary issues or concerns. He denies urinary urgency, urinary frequency, incontinence, hematuria, dysuria, foul smelling urine, changes to urinary stream, flank pain, fever, and or chills. In office urinalysis results reviewed with the patient today. PVR 30mL. Patient has son discusses having called the office office shortly after daylight savings time as patient had been confused and he was unsure if this was a urinary tract infection as patient to UTI like symptoms are typically confusion however urine culture was negative and patient followed up with neurology and diagnosed with sundown syndrome. He reports being started on quetiapine and feels this has been helpful. He otherwise offers no other issues or concerns at this time. [facility] Medical History Hallucinations Benign prostate hyperplasia Parkinson's disease without dyskinesia or fluctuating manifestations Erectile dysfunction Impaired fasting glucose Hearing impairment Parkinson's disease Pure hypercholesterolemia Benign essential hypertension Surgical History History of cochlear implant (~01/03/23) History of hernia surgery Family History Father No problems noted. Mother No problems noted. Social History Household Members: None Housing: House Do you presently have visiting nurse or other home services: No Alcohol intake: current Alcohol intake frequency: holidays/special occasions only Alcohol type: beer Comment: occasionally Patient Tobacco Use Status: Former Tobacco user Tobacco use type: Cigarette e-Cigarette/Vaping Use: Never Used Second Hand Smoke Exposure: No service: No Current occupational status: retired Cognitive needs: No Hearing needs: Yes (hearing aide) Vision needs: Yes (reading glasses) Review of Systems Const Reports as per HPI Eyes Reports no additional complaints ENT Reports as per HPI Card Reports as per HPI Resp Reports no additional complaints GI Reports no additional complaints Reports as per HPI Musc Reports as per HPI Neuro Reports as per HPI Psych Reports no additional complaints Endo Reports no additional complaints Zheng/Lymph Reports no additional complaints Aller/Immun Reports no additional complaints Physical Exam Const General: cooperative, healthy appearing, comfortable, no acute distress, well developed, alert and awake Nutritional Appearance: thin Orientation/consciousness: oriented to person Limitations: no limitations HEENT Head: Yes normal to inspection, Yes normocephalic and Yes atraumatic Ears: hearing grossly normal bilaterally Eyes General: appearance normal, both eyes and all related structures Neck Neck: Yes normal visual inspection and Yes trachea midline Chest Chest palpation & inspection: normal inspection of the chest Resp Effort & Inspection: normal respiratory effort and able to speak in complete sentences Cardio Rate: regular rate GI Inspection: Yes normal to inspection General: Yes no CVA tenderness Back/Spine/Pelvis Back: no CVA tenderness Skin General skin exam: no rashes or lesions noted Neuro Other: tremors noted bilaterally General: oriented to person Extrem General: Yes normal to inspection Psych Appearance: grossly normal and well kempt Mental Status: mental status grossly normal Speech and movement: Normal speech and movement present and Clear speech present Affect: normal affect Attitude: cooperative Thought process: Normal thought process present Thought content: Normal thought content present Insight: Fair insight present (Psych) Judgement: Fair judgement present (Psych) Office Procedures Post Void Residual Post Residual Void Post Void Residual (PVR): 30 [id number] Void Residual by ultrasound Results AMB Urinalysis, Automated UA Leukoctes 0 Fariba/uL Last Edit by [facility] on 10/05/24 14:44 UA Nitrite Last Edit by [facility] on 10/05/24 14:44 UA Urobilinogen 0.2 mg/dL Last Edit by [facility] on 10/05/24 14:44 UA Protein 0 mg/dL Last Edit by [facility] on 10/05/24 14:44 UA pH 6.0 Last Edit by [facility] on 10/05/24 14:44 UA Blood 10 Juan/uL Last Edit by [facility] on 10/05/24 14:44 UA Specific [place] 1.015 Last Edit by Carina Goncalves on 10/05/24 14:44 UA Ketone Negative Last Edit by Carina Goncalves on 10/05/24 14:44 UA Bilirubin 0 mg/dL Last Edit by Carina Goncalves on 10/05/24 14:44 UA Glucose 0 mg/dL Last Edit by Carina Goncalves on 10/05/24 14:44 Results Reviewed Results Reviewed: Laboratory Last Values Urine pH (Auto) 6.0 10/05/24 14:43 Specific [place] (Auto) 1.015 10/05/24 14:43 Urine Protein (Auto) 0 mg/dL 10/05/24 14:43 Glucose (UA)(Auto) 0 mg/dL 10/05/24 14:43 Urine Ketones (Auto) Negative 10/05/24 14:43 Urine Blood (Auto) 10 Juan/uL 10/05/24 14:43 Urine Bilirubin (Auto) 0 mg/dL 10/05/24 14:43 Urine Urobilinogen (Auto) 0.2 mg/dL 10/05/24 14:43 Leukocyte Esterase (Auto) 0 Fariba/uL 10/05/24 14:43 Assessment & Plan Assessment & Plan (1) Benign prostate hyperplasia: Code(s): N40.0 - Benign prostatic hyperplasia without lower urinary tract symptoms Category: Medical Qualifiers: Lower urinary tract symptom presence: symptoms present Lower urinary tract symptom detail: urinary frequency Qualified Code(s): N40.1 - Benign prostatic hyperplasia with lower urinary tract symptoms; R35.0 - Frequency of micturition (2) Enlarged prostate: Code(s): N40.0 - Benign prostatic hyperplasia without lower urinary tract symptoms Category: Medical (3) Elevated PSA: Code(s): R97.20 - Elevated prostate specific antigen [PSA] Category: Medical (4) Recurrent urinary tract infection: Code(s): N39.0 - Urinary tract infection, site not specified Category: Medical Plan In office urinalysis results reviewed with the patient today; as noted above. Patient currently denies any bothersome urinary issues or concerns. He reports be happy with current voiding parameters. PVR 30 mL. Recent PSA results reviewed with the patient today; as noted above. Continue finasteride and tamsulosin as prescribed. Will obtain PSA in 6 months Follow-up in 6 months with PSA and PVR; or sooner with any issues, concerns, and or questions. Orders: Orders AMB Post Void Residual by ultrasound 10/05/24 N40.1 - Benign prostatic hyperplasia with lower urinary tract symptoms, R35.0 - Frequency of micturition AMB Urinalysis Automated 10/05/24 Z13.9 - Encounter for screening, unspecified Urine Cytology 10/05/24 Z13.9 - Encounter for screening, unspecified Patient Instructions: The patient had an opportunity to ask questions regarding the treatment plan. All questions were answered. Physical exam, labs, and imaging were discussed and reviewed in detail. As well as risks, benefits, and discussion of treatment choices. No major barriers to understanding were identified. The patient expressed understanding and agreement with the above treatment plan. The patient was made aware they should contact our office by phone for worsening of their current condition, the appearance of new symptoms, or with any questions or concerns. Compliance is encouraged with any medications and follow up testing that is ordered. It is a privilege to be allowed the opportunity to participate in? your urological care.? Again, if you have any questions or concerns If you have any questions or concerns please do not hesitate to contact me. The office is [phone]. This note is constructed using voice recognition software. While every effort has been made to ensure accuracy sample taker operator errors may have been included. Yours sincerely, MALIK English Coding Level of Care Code Est Pt Level 3 (02875) Complex EM visit Add On G2211 Diagnoses Benign prostatic hyperplasia with urinary frequency N40.1; R35.0 Lower urinary tract symptom presence: symptoms present Lower urinary tract symptom detail: urinary frequency Enlarged prostate N40.0 Elevated PSA R97.20 Recurrent urinary tract infection N39.0 CPT Codes Post Residual Void - PVR CPT Code: 72137-Ytfu Void Residual by ultrasound ([id number])
== END 2024-10-05 15:26 | disposition home or self-care (01) ==
PROVIDERS: PCP Internal Medicine; Visit Provider Nurse Practitioner Family
DX: N40.1 Benign prostatic hyperplasia with lower urinary tract symptoms (principal); R35.0 Frequency of micturition; N40.0 Benign prostatic hyperplasia without lower urinary tract symptoms; R97.20 Elevated prostate specific antigen [PSA]; N39.0 Urinary tract infection, site not specified
CPT/HCPCS: 99213; G2211

== ENCOUNTER 2024-10-19 12:49 | Outpatient (REF) | payer OTHER, SELFPAY | END 2024-10-19 12:50 | disposition home or self-care (01) | LOC: HO.HAP 12:49 | PROVIDERS: Visit Provider Nurse Practitioner Family | DX: Z13.89 Encounter for screening for other disorder (principal) ==

== ENCOUNTER 2024-12-17 10:30 | Outpatient (REF) | payer OTHER, SELFPAY ==
--- OUTSIDE RECORDS SUMMARY | 2024-12-17 11:54 | XMS_ITS ---
Author Organization [facility] [place] [address] Phone Care Team Providers Care Claim Benefit Specialist Name Role Phone Reyna Zuniga EDUCATION RESEARCH ANALYST Primary Care Provider [phone] Program of [facility] for the Elderly Status:Enrolled (Active) Start date:10/06/2023 Enrollment date:10/06/2023 Related social drivers of health:Housing Instability, Financial Risk, Transportation, Social Isolation, Food Risk Case Team Name Relationship Phone Juventino Del Angel NP Nurse Practitioner [phone] Vy Kapadia RN Online Marketing Analyst Antonio Andrade OT Occupational Therapist Matt Moreno RN Registered Nurse Anika Watsonitijosh Cifuentes [facility] Hospital[facility] Coordinator Reji Balderas LCSW Director Of Hotel Operations Elis Paniagua RN Online Marketing Analyst Jessica Roman PT Physical Therapist Ilsa Frias MD Primary Care Provider Continued Care and Services Coordination
--- OUTSIDE RECORDS SUMMARY | 2024-12-17 11:54 | XMS_ITS | Clinical Summary ---
Author Organization [facility] Address [facility] [place] [address] Phone Care Team Providers Care Dry Folder Cloth Name Role Phone Reyna Zuniga PET HANDLER Primary Care Provider [phone] Medications atorvastatin (LIPITOR) 40 mg tablet 1 tab by mouth every day at bedtime Active carbidopa-levod opa (SINEMET) 25-100 mg per tablet 1.5 tabs by mouth 4 times per day Active ciclopirox (PENLAC) 8 % solution 1 application to (affected) skin every day at bedtime Apply over nail and surrounding skin. Apply daily over previous coat. After seven (7) days, may remove with alcohol and continue cycle. Active ESCITALOPRAM OXALATE ORAL Take by mouth. (escitalopram oxalate) 5 mg tablet 1 tab by mouth daily Active finasteride (PROSCAR) 5 mg tablet 1 tab by mouth daily at bedtime Do not crush, chew, or split. Active lisinopriL (PRINIVIL,ZESTR IL) 10 mg tablet 1 tab by mouth daily Active metoprolol succinate (TOPROL-XL) 25 mg 24 hr tablet 1 tab by mouth daily Do not crush or chew. Active polyethylene glycol (PEG) 17 gram/dose oral powder 17 grams by mouth dissolved in fluid daily Active tamsulosin (FLOMAX) 0.4 mg 24 hr capsule 1 cap by mouth every day at bedtime Capsules should be taken 30 minutes following the same meal each day. Active Active Problems Problem Noted Date Diagnosed Date Other specified disorders of bone density and structure, multiple sites 11/17/2024 Overview (11/17/2024): DEXA: Z13.820, M85.89 Allergic rhinitis 11/17/2024 Benign prostatic hyperplasia with lower urinary tract symptoms 11/17/2024 Overview (11/17/2024): BPH with LUTS Nocturia 11/17/2024 Cervicalgia 11/17/2024 Mild cognitive impairment 11/17/2024 Constipation 11/17/2024 Depression, major, recurrent, mild 11/17/2024 Anxiety 11/17/2024 Edentulous 11/17/2024 Overview (11/17/2024): Edentulous, Partial Dry mouth 11/17/2024 Unsteady gait 11/17/2024 Hard of hearing 11/17/2024 Hypercholesterolemia 11/17/2024 Hypertension 11/17/2024 Bradycardia 11/17/2024 Intolerance to cold 11/17/2024 Parkinson's disease without dyskinesia, without mention of fluctuations 11/17/2024 Double vision 11/17/2024 Cataract of left eye 11/17/2024 Immunizations Name Administration Dates Next Due Moderna SARS-CoV-2 COVID-19, mRNA, LNP-S, preservative free 02/13/2022,10/09/2021,02/14/2021 Pneumococcal conjugate 20 va lent (Prevnar 20, PCV 20) 2mo and older 10/09/2021 Tdap Tetanus diptheria acell ular pertussis (Boostrix; Adacel) 7yo and older 10/08/2013 Medical History Medical History Date Comments Cochlear implant status History of smoking Status post cataract extract ion and insertion of intraocular lens, right Social History Tobacco Use Types Packs/Day Years Used Date Smoking Tobacco: Former Cigarettes Tobacco Cessation:Counseling Given: Not Answered Comments:Ex-smoker Sex and Gender Information Value Date Recorded Sex Assigned at Not on file Legal Sex Male 9:32 AM EST Gender Identity Not on file Sexual Orientation Not on file Obstetrics History Last Filed Vital Signs Vital Sign Reading Time Taken Comments Blood Pressure 133/68 09/27/2024 4:45 PM EST Pulse 60 09/27/2024 4:45 PM EST sitti ng Temperature 36.4 ??C (97.6 ??F) 09/27/2024 4:45 PM ES T Respiratory Rate 16 09/27/2024 4:45 PM EST Oxygen Saturation 99% 09/27/2024 4:45 PM EST Inhaled Oxygen Concentration - - Weight 61.6 kg (135 lb 11.2 oz) 09/27/2024 4:45 PM EST Height - - Body Mass Index - - Plan of Treatment Upcoming Encounters Date Type Department Care Team (Late st Contact Info) Description 12/23/2024 1:45 PM EDT Clinical Support [employer] [address] [phone] 01/06/2025 3:00 PM EDT Clinical Support [employer] [address] [phone] 01/17/2025 9:00 AM EDT Clinical Support [employer] [address] [phone] 01/18/2025 9:30 AM EDT Clinical Support [employer] [address] [phone] Health Maintenance Due Date Last Done Comments Zoster Vaccines (1 of 2) 1998 RSV Immunization Patients 60 + Years Old (1 - 1-dose 75+ series) 2023 DTaP,Tdap,and Td Vaccines (2 - Td or Tdap) 10/08/2023 10/08/2013 COVID-19 Vaccine (4 - 2023-2 5 season) 2024 02/13/2022, 10/09/2021, 02/14/2021 Influenza Vaccine (#1) 2024 Depression Screening 09/08/2024 Falls Risk Assessment 09/08/2024 Hepatitis C Screening 09/08/2024 Social Influencers of Health Screening 09/08/2024 Hypertension/CHF/CAD Annual BMP Blood Test 09/27/2025 09/27/2024 Cholesterol Screening (Lipid Panel) 10/17/2028 10/17/2023 Pneumococcal Vaccine: 50+ Years Completed 10/09/2021 HIB Vaccines Aged Out No longer eligi ble based on patient's age to complete this topic HPV Vaccines Aged Out No longer eligi ble based on patient's age to complete this topic Hepatitis A Vaccines Aged Out No long er eligible based on patient's age to complete this topic Hepatitis B Vaccines Aged Out No long er eligible based on patient's age to complete this topic IPV Vaccines Aged Out No longer eligi ble based on patient's age to complete this topic MMR Vaccines Aged Out No longer eligi ble based on patient's age to complete this topic Meningococcal ACWY Vaccine Aged Out N o longer eligible based on patient's age to complete this topic Meningococcal B Vacine Aged Out No lo nger eligible based on patient's age to complete this topic RSV Immunization Patients Under 20 months Aged Out No longer eligible b ased on patient's age to complete this topic Varicella Vaccines Aged Out No longer eligible based on patient's age to complete this topic Procedures Procedure Name Priority Date/Time Associated Diagnosis Comments ANNUAL BMP BLOOD TEST Routine 09/27/2024 LIPID PANEL Routine 10/17/2023 from Last 3 Months or Most Recently Relevant to Health Maintenance Results * Annual BMP Blood Test (09/27/2024) Pathologist [facility] Annual BMP Blood Test Abstracted Historical Provider HEALTH MAINTENANCE Final Result * (ABNORMAL) Lipid panel (10/17/2023) Pathologist [facility] LDL/HDL Ratio 3 <=5 Triglycerides 79 <=150 mg/dL Cholesterol 110 <=200 mg/dL HDL 37(A) >=40 mg/dL LDL Cholesterol 57 <=100 mg/dL Blood Venous blood specimen / Unknown Historical Provider LAB BLOOD ORDERABLES Lali l Result from Last 3 Months or Most Recently Relevant to Health Maintenance Insurance [facility] Member Subscriber Plan / Payer (Ef fective 2023-Present) Name:Vincenzo Prieto Relation to Subscriber:Self Name:Vincenzo Prieto Payer ID:[id number] Group ID:Not on file Type:Not on file Address: DEMET[address] [facility] CLAIMS ADJUDICATION [place] * Guarantor: PACE Account Type Relation to Patient Date of Phone Billing Address PACE DEAN [address] [address] [facility] Advance Directives Documents on File Type Date Recorded Patient Dispatch Coordinator Expl anation Advance Directives and Living Will 11/17/2024 5:07 PM ADV DIR-Healthcare Proxy [email or web address] * Full Code - Default (Latest Code Status on File) Date Activated Date Inactivated Comments 11/25/2024 2:08 PM This is order is used when code status has not been discussed with the patient, or code status is otherwise unknown/unconfirmed To update the patient's code status, place a code status order. Do not modify or discontinue any currently active code status orders. Care Teams Dry Folder Cloth Relationship Specialty Start Date End Date Reyna Zuniga NP [address] [place] [id number] PCP - General Family Medicine 11/06/24
== END 2024-12-17 10:31 | disposition home or self-care (01) ==
LOC: HO.HAP 10:30
PROVIDERS: PCP Nurse Practitioner Family; Visit Provider Nurse Practitioner Family
DX: Z13.89 Encounter for screening for other disorder (principal)

== ENCOUNTER 2024-12-20 14:57 | Outpatient (AMB) | payer OTHER, SELFPAY ==
--- NOTE | 2024-12-20 15:01 | MHC.OFFVIS ---
Vital Signs 12/20/24 15:02 Height 5 ft 6 in Weight 135 lb BMI 21.8 BP 124/78 Blood Pressure Location Rt brachial Position Sitting Pulse 51 Pulse Source Pulse Oximeter Pulse Oximetry (%) 100 Oxygen Delivery Method Room Air Intake Visit Reasons: follow up Parkinson Intake Note: Patient presents for follow up for parkinsons. Allergies No Known Allergies [No Known Allergies*] Allergy (Verified 12/20/24 15:03) HPI Comments Details: 74y/o Right handed male comes for follow up of parkinsons disease.His tremors are worse according to his son but patient says he frequently misses a dose of medication.He is doing OK. He is on carbidopa/levodopa 25/100 1.5 tabs qid and his dizziness has been better. He started drinking more fluids as well. No hallucinations. He has vivid dreams less than before - he used to have sleep talking. Mood is stable.His sleep is OK - wakes once a night. His son reports 2 episodes of confusion during the evenings - he saw someone in the couch.He was started on quetipaine 25mg in the evening and 1 tab at bedtime . History-He started noticing tremors - rest about 2-3 years ago L>R He was diagnosed with parkinsons disease .He was started on carbidopa/levodopa and it helped.In summer 2022 - he had delirium , diagnosed with UTI.He was admitted at [facility] , he was very confused and was told that he was sundowning. He saw after that and diagnosed with Diffuse Lewy body dementia. He is home now and has been stable since his UTI was treated. Cognition- normal SLeep- he has dream enactment Mood- he takes meds for anxiety SPeech-same Swallowing-normal No drooling Handwriting-good He is able to dress, shower. Gait- good, no falls recently ( during UTI he had a fall) Bowel movements- constipation No double vision Vertigo with change in head positions. Hallucinations-during UTI Sleep- good [facility] Medical History Hallucinations Benign prostate hyperplasia Parkinson's disease without dyskinesia or fluctuating manifestations Erectile dysfunction Impaired fasting glucose Hearing impairment Parkinson's disease Pure hypercholesterolemia Benign essential hypertension Surgical History History of cochlear implant (~01/03/23) History of hernia surgery Family History Father No problems noted. Mother No problems noted. Social History Household Members: None Housing: House Do you presently have visiting nurse or other home services: No Alcohol intake: current Alcohol intake frequency: holidays/special occasions only Alcohol type: beer Comment: occasionally Patient Tobacco Use Status: Former Tobacco user Tobacco use type: Cigarette e-Cigarette/Vaping Use: Never Used Second Hand Smoke Exposure: No service: No Current occupational status: retired Cognitive needs: No Hearing needs: Yes (hearing aide) Vision needs: Yes (reading glasses) Physical Exam Vital Signs: Last Vital Signs Pulse 51 12/20/24 15:02 BP 124/78 12/20/24 15:02 Pulse Ox 100 12/20/24 15:02 Oxygen Delivery Method Room Air 12/20/24 15:02 BMI result Body Mass Index 21.8 Const General: cooperative, healthy appearing, comfortable and no acute distress Nutritional Appearance: average body habitus Orientation/consciousness: patient oriented x3 Eyes Pupils: Equal, round and reactive pupils present Neuro Other: Mild decreased blink , facial expression Mild dysprosody Alphonso moderate amplitude Rest tremors L>R No action or postural tremors FFM and foot taps mildly decreased mild L>R Gait- mild stoop, slow good stride , decreased arm swings alphonso L>R General: patient oriented x3 and moves all extremities Cranial nerves: Yes Facial sensation intact/muscles of mastication intact, Yes Equal, round and reactive pupils present, No Bilaterally intact EOM present, Yes Nystagmus not present, Yes Normal facial strength present, Yes Midline tongue present and Yes Ability to bilaterally elevate shoulders present Cognition (Neuro): normal cognition Motor exam (neuro): 5/5 motor strength present throughout Coordination: [id number] test normal Assessment & Plan Assessment & Plan (1) Parkinson's disease without dyskinesia or fluctuating manifestations: Comment: Tremor predominant Code(s): G20.A1 - Parkinson's disease without dyskinesia, without mention of fluctuations Category: Medical (2) Hallucinations: Code(s): R44.3 - Hallucinations, unspecified Category: Medical Plan Continue carbidopa/levodopa 25/100 1.5 tab qid quetiapine 25mg q sherron and qhs Increase fluids - 6 glasses of water or liquid IV senna for constipation Increase fluids Increase physical activity Will consider venlafaxine for thermoregulatory issues I suggested buying cooling shirts for night sweats Coding Level of Care Code Est Pt Level 4 (29327) Complex EM visit Add On G2211 Diagnoses Parkinson's disease without dyskinesia or fluctuating manifestations G20.A1 Hallucinations R44.3
[2024-12-20 15:02] VITALS: BP 124/78; PULSE 51; O2SAT 100; BMI 21.8
--- OUTSIDE RECORDS SUMMARY | 2024-12-20 17:32 | XMS_ITS ---
Author Organization [facility] [place] [address] Phone Care Team Providers Care Propeller Engineer Name Role Phone Reyna Zuniga POLYMERIZATION ENGINEER Primary Care Provider [phone] Program of All-Inclusive Care for the Elderly Status:Enrolled (Active) Start date:10/06/2023 Enrollment date:10/06/2023 Related social drivers of health:Housing Instability, Financial Risk, Transportation, Social Isolation, Food Risk Case Team Name Relationship Phone Juventino Del Angel NP Nurse Practitioner [phone] Vy Kapadia RN Environmental Services Worker Antonio Andrade OT Occupational Therapist Matt Moreno RN Registered Nurse Anika Watsonitijosh Cifuentes [facility] Wrapper Reji Balderas LCSW [place] Elis Paniagua RN Environmental Services Worker Jessica Roman PT Physical Therapist Ilsa Frias MD Primary Care Provider Continued Care and Services Coordination
--- OUTSIDE RECORDS SUMMARY | 2024-12-20 17:32 | XMS_ITS | Clinical Summary ---
Author Organization [facility] Address [place] [address] Phone Care Team Providers Care Rn Admission Name Role Phone Reyna Zuniga STRATEGIC BUSINESS DEVELOPMENT Primary Care Provider [phone] Medications atorvastatin (LIPITOR) 40 mg tablet 1 [...] vision 11/17/2024 Cataract of left eye 11/17/2024 Encounters Date Type Department Care Team Description 12/19/2024 Patient Outreach [address] [phone] Federica Almeida RN from Last 3 Months Immunizations Name Administration Dates Next Due Moderna [...] Upcoming Encounters Date Type Department Care Team ([facility] st Contact Info) Description 12/23/2024 1:45 PM EDT Clinical Support [facility] [address] [address] 01/06/2025 3:00 PM EDT Clinical Support [facility] [address] [address] 01/17/2025 9:00 AM EDT Clinical Support [address] [phone] 01/18/2025 9:30 AM EDT Clinical Support [facility] [address] [address] Health Maintenance Due Date Last Done Comments [...] * Annual BMP Blood Test (09/27/2024) Pathologist [facility] Annual BMP Blood Test Abstracted Historical Provider HEALTH MAINTENANCE Final Result * (ABNORMAL) Lipid panel (10/17/2023) LDL/HDL Ratio 3 <=5 Triglycerides 79 <=150 mg/dL Cholesterol 110 <=200 mg/dL HDL 37(A) >=40 mg/dL LDL Cholesterol 57 <=100 mg/dL Blood Venous blood specimen / Unknown Historical Provider LAB BLOOD ORDERABLES Lali l Result from Last 3 Months or Most Recently Relevant to Health Maintenance Insurance [employer] * Guarantor: PACE Account Type Relation to Patient Date of Phone Billing Address [place] [address] [facility] Advance Directives Documents on File Type Date Recorded Patient Chairperson Anesthesiology Expl anation Advance Directives and Living Will [...] currently active code status orders. Care Teams Rn Admission Relationship Specialty Start Date End Date Reyna Zuniga NP [address] [address] PCP - General Family Medicine 11/06/24
--- OUTSIDE RECORDS SUMMARY | 2024-12-20 17:32 | XMS_ITS | Encounter Summary ---
Author Organization [facility] Address [address] [place] [address] Care Team Providers Care Military Technology Specialist Name Role Phone Reyna Zuniga PUMP ERECTOR Primary Care Provider [phone] Encounter Details Date Type Department Care Team (Late Contact Info) Description 12/19/2024 Patient Outreach [facility] [address] [phone] Federica Almeida, GRADY Social History Tobacco Use Types Packs/Day Years Used Date Smoking Tobacco: Former Cigarettes Comments:Ex-smoker Sex and Gender Information Value Date Recorded Sex Assigned at Not on file Legal Sex Male 9:32 AM EST Gender Identity Not on file Sexual Orientation Not on file documented as of this encounter Progress Notes * Federica Almeida RN - 12/19/2024 4:54 PM EDT SN made direct call to Angel's Son to discuss, inform/educate, offer Influenza Vaccine. No answer. SNleft detailed message with plan to call back tomorrow afternoon. documented in this encounter Plan of Treatment Upcoming Encounters Date Type Department Care Team (Late st Contact Info) Description 12/23/2024 1:45 PM EDT Clinical Support [facility] [address] [place] [phone] 01/06/2025 3:00 PM EDT Clinical Support Anne Marie GALVEZ [address] [address] 01/17/2025 9:00 AM EDT Clinical Support Anne Marie [address] [address] 01/18/2025 9:30 AM EDT [facility] [address] [address] documented as of this encounter Visit Diagnoses Diagnosis Healthcare maintenance- Primary documented in this encounter Care Teams Military Technology Specialist Relationship Specialty Start Date End Date Reyna Zuniga NP [address] [place] [address] PCP - General Family Medicine 11/06/24 documented as of this encounter
== END 2024-12-20 15:32 | disposition home or self-care (01) ==
LOC: HO.HSMS 14:57
PROVIDERS: Visit Provider Psychiatry & Neurology Neurology
DX: G20.A1 Parkinson's disease without dyskinesia, without mention of fluctuations (principal); R44.3 Hallucinations, unspecified
CPT/HCPCS: 99214; G2211

== ENCOUNTER → 2024-12-20 14:57 | Outpatient (BNVA) | payer OTHER, SELFPAY | PROVIDERS: Visit Provider Psychiatry & Neurology Neurology | DX: G20.A1 Parkinson's disease without dyskinesia, without mention of fluctuations (principal); R44.3 Hallucinations, unspecified | CPT/HCPCS: 99212 ==

== ENCOUNTER 2025-01-06 14:46 | Outpatient (REF) | payer OTHER, SELFPAY ==
--- OUTSIDE RECORDS SUMMARY | 2025-01-06 16:15 | XMS_ITS | Encounter Summary ---
Author Organization [employer] [facility] Address [address] [place] [address] Care Team Providers Care Spinner Iron Name Role Phone Reyna Zuniga FISH HATCHERY WORKER Primary Care Provider [phone] Reason for Visit * Reason Comments Hypertension Encounter Details Date Type Department Care Team (Late st Contact Info) Description 01/06/2025 3:00 PM EDT Clinical Support [address] [phone] Mae Cintron RN Social History Tobacco Use Types Packs/Day Years Used Date Smoking Tobacco: Former Cigarettes Comments:Ex-smoker Sex and Gender Information Value Date Recorded Sex Assigned at Not on file Legal Sex Male 9:32 AM EST Gender Identity Not on file Sexual Orientation Not on file documented as of this encounter Last Filed Vital Signs Vital Sign Reading Time Taken Comments Blood Pressure 190/52 01/06/2025 3:41 PM EDT Pulse 55 01/06/2025 3:41 PM EDT Temperature - - Respiratory Rate - - Oxygen Saturation - - Inhaled Oxygen Concentration - - Weight - - Height - - Body Mass Index - - documented in this encounter Progress Notes * Mae Cintron RN - 01/06/2025 3:00 PM EDT Par seen in the clinic for BP recheck, BP elevated and documented, par denies headache/blurred vision/dizziness, will report BP to provider documented in this encounter Plan of Treatment Upcoming Encounters Date Type Department Care Team (Late st Contact Info) Description 01/17/2025 9:00 AM EDT Clinical Support [facility] [address] [address] 01/17/2025 10:00 AM EDT Clinical Support [facility] [address] [address] 01/18/2025 9:30 AM EDT Clinical Support [facility] [address] [phone] documented as of this encounter Visit Diagnoses Not on filedocumented in this encounter Care Teams Spinner Iron Relationship Specialty Start Date End Date Reyna Zuniga NP [address] [place] [address] PCP - General Family Medicine 11/06/24 documented as of this encounter
--- OUTSIDE RECORDS SUMMARY | 2025-01-06 16:15 | XMS_ITS ---
Author Organization [facility] [place] [address] Phone Care Team Providers Care Assistant Pastry Chef Name Role Phone Reyna Zuniga COUPLER Primary Care Provider Program of All-Inclusive Care for the Elderly Status:Enrolled (Active) Start date:10/06/2023 Enrollment date:10/06/2023 Related social drivers of health:Housing Instability, Financial Risk, Transportation, Social Isolation, Food Risk Case Team Name Relationship Phone Juventino Del Angel COUPLER Nurse Practitioner [phone] Vy Kapadia RN Communications Project Manager Antonio Andrade OT Occupational Therapist Matt Moreno RN Registered Nurse Anika Watsonitijosh Cifuentes [facility] Hospital[facility]for[facility] Reji Balderas LCSW Dial Equipment Engineer Elis Paniagua RN Communications Project Manager Chadwick De [facility] Jessica Roman PT Physical Therapist Ilsa Frias MD Primary Care Provider Continued Care and Services Coordination
--- OUTSIDE RECORDS SUMMARY | 2025-01-06 16:15 | XMS_ITS | Clinical Summary ---
Author Organization [facility] Address [place] [address] Phone Care Team Providers Care Area Secretary Name Role Phone Reyna Zuniga BOX LINER Primary Care Provider [phone] Medications atorvastatin (LIPITOR) 40 mg tablet 1 [...] Encounters Date Type Department Care Team Description 01/06/2025 3:00 PM EDT Clinical Support [address] [phone] Mae Cintron RN 01/06/2025 3:00 PM EDT PACE External Visit [address] [phone] Healthcare maintenance 12/31/2024 12:00 PM EDT Office Visit [address] [phone] Reyna Zuniga NP 12/31/[address] [phone] Reyna Zuniga NP Other (Spoke with Angel's son, Angel's son said that he will remind par of podiatry appt on 01/06 at 3pm and that par will drive him self to the appt.) 12/23/2024 1:45 PM EDT PACE External Visit Anne Marie GALVEZ [place] [address] [place] [address] Healthcare maintenance; Edentulous; Dry mouth 12/19/2024 Patient Outreach [facility] [address] [place] [address] Federica Almeida RN from Last 3 Months Immunizations Name Administration Dates Next Due Moderna SARS-CoV-2 COVID-19, mRNA, LNP-S, preservative free 02/13/2022,10/09/2021,02/14/2021 Pneumococcal conjugate 20 va lent (Prevnar 20, PCV 20) 2mo and older 10/09/2021 Tdap Tetanus diptheria acell ular pertussis (Boostrix; Adacel) 7yo and older 10/08/2013 Surgical History Surgery Date Site/Laterality Comments HERNIA REPAIR Right COCHLEAR IMPLANT Left Medical History Medical History Date Comments Cochlear implant status History of smoking Status post cataract extract ion and insertion of intraocular lens, right Parkinson disease (CMS/HCC) Family History Medical History Relation Name Comments CVA Father Chronic bronchitis Mother Relation Name Status Comments Father Mother Social History Tobacco Use Types Packs/Day Years [...] Pulse 55 01/06/2025 3:41 PM EDT Temperature 36.4 ??C (97.6 ??F) 09/27/2024 4:45 [...] Description 01/17/2025 9:00 AM EDT Clinical Support Anne Marie GALVEZ [place] [address] [place] [phone] 01/17/2025 10:00 AM EDT Clinical Support Anne Marie GALVEZ [place] [address] [place] [phone] 01/18/2025 9:30 AM EDT Clinical Support Anne Marie GALVEZ [place] [address] [place] [phone] Health Maintenance Due Date Last Done Comments Zoster Vaccines (1 of 2) 1998 RSV Immunization Adult Patients (1 - 1-dose 75+ series) 2023 DTaP,Tdap,and Td Vaccines (2 - Td or Tdap) 10/08/2023 10/08/2013 COVID-19 Vaccine ( - 2023-2 5 season) 2024 02/13/2022, 10/09/2021, 02/14/2021 Depression Screening 09/08/2024 Falls Risk Assessment 09/08/2024 Hepatitis C Screening 09/08/2024 Social Influencers of Health Screening 09/08/2024 Influenza Vaccine (Season Ended) 2025 Hypertension/CHF/CAD Annual BMP Blood Test 09/27/2025 09/27/2024 [...] Results * Annual BMP Blood Test (09/27/2024) Annual BMP Blood Test Abstracted Historical Provider MD HEALTH MAINTENANCE Final Result * (ABNORMAL) Lipid panel (10/17/2023) LDL/HDL Ratio 3 <=5 Triglycerides 79 <=150 mg/dL Cholesterol 110 <=200 mg/dL HDL 37(A) >=40 mg/dL LDL Cholesterol 57 <=100 mg/dL Blood Venous blood specimen / Unknown Historical Provider LAB BLOOD ORDERABLES Lali l Result from Last 3 Months or Most Recently Relevant to Health Maintenance [place] [address] [place] [address] * Guarantor: PACE Account Type Relation to Patient Date of Phone Billing Address DEAN MORAN Demetri [place] [address] [employer] Advance Directives Documents on File Type Date Recorded Patient Cytogenetics Technologist Expl anation Advance Directives and Living Will 11/17/2024 5:07 PM ADV DIR-Healthcare Proxy ..23.pdf * Full Code - Default (Latest Code Status on File) Date Activated Date Inactivated Comments 11/25/2024 2:08 PM This is order is used when code status has not been discussed with the patient, or code status is otherwise unknown/unconfirmed To update the patient's code status, place a code status order. Do not modify or discontinue any currently active code status orders. Care Teams Area Secretary Relationship Specialty Start Date End Date Reyna Zuniga NP [address] [place] [address] PCP - General Family Medicine 11/06/24
--- OUTSIDE RECORDS SUMMARY | 2025-01-06 16:15 | XMS_ITS | Encounter Summary ---
Author Organization [facility] Address [address] [place] [address] Care Team Providers Care Auto Rental Supervisor Name Role Phone Reyna Zuniga RECREATION MANAGER Primary Care Provider [phone] Reason for Visit * Consultation (Routine) - Authorized Specialty Diagnoses / Procedures Referred By Jennifer colindres Referred To Contact Podiatry Diagnoses Healthcare maintenance Ilsa Frias MD [address] [place] [address] Phone: tel: fax: Referral ID Status Reason Start Date Expiration Date Visits Requested Visits Authorized [id number] Authorized Consult and Treat 11/28/2024 11/28/2025 1 1 Encounter Details Date Type Department Care Team (Latest Contact Info) Description 01/06/2025 3:00 PM EDT [facility] [address] [phone] Healthcare maintenance Social History Tobacco Use Types Packs/Day Years Used Date Smoking Tobacco: Former Cigarettes Comments:Ex-smoker Sex and Gender Information Value Date Recorded Sex Assigned at Not on file Legal Sex Male 9:32 AM EST Gender Identity Not on file Sexual Orientation Not on file documented as of this encounter Plan of Treatment Upcoming Encounters Date Type Department Care Team (Late st Contact Info) Description 01/17/2025 9:00 AM EDT Clinical Support Anne Marie [address] [phone] 01/17/2025 10:00 AM EDT Clinical Support [address] [address] 01/18/2025 9:30 AM EDT Clinical Support [address] [phone] documented as of this encounter Visit Diagnoses Diagnosis Healthcare maintenance documented in this encounter Orders Outpatient Referral Count Last Ordered Date Fir st Ordered Date AMB REFERRAL TO PODIATRY 1 01/06/2025 documented in this encounter Care Teams Auto Rental Supervisor Relationship Specialty Start Date End Date Reyna Zuniga NP [address] [place] [address] PCP - General Family Medicine 11/06/24 documented as of this encounter
--- NOTE | 2025-01-07 09:14 | MHC.AU.HA3 ---
Hearing Instrument Follow-Up Date of Visit: 01/07/25 Right Ear: Make, Model, Color, Serial Number: Anum Q 90 SP Hand Lens Polisher Repair Warranty: Hand Lens Polisher Loss and Damage Warranty: [facility] Service Plan: Battery Size: 13 Positive Printer Operator/Slim Tube: Earmold/Dome/CShell/SlimTip: Type of Wax Guard: Dispensed By: [facility] Date of Fitting: Left Ear: Make, Model, Color, Serial Number: Cochlear Implant Follow-Up Summary: Vincenzo dropped off his old left Phonak hearing aid which he now uses for the right ear on 12/17 not working . [facility] service here. Found tube hard and tone hook loose. Cleaned aid and earmold. Note earmold is in very poor condition. Re tubed, replaced yrn covers, replaced tone hook. Listening check positive. Recommendations: Recommendations: Hearing instrument follow-up or maintenance as needed. Diagnosis Code(s): Primary Diagnosis: H90.6 Mixed Hearing Loss, Bilateral Signature: Provider: Fredy Mckeon, [facility]
== END 2025-01-06 14:47 | disposition home or self-care (01) ==
LOC: HO.HAP 14:46
PROVIDERS: Visit Provider Internal Medicine
DX: Z13.89 Encounter for screening for other disorder (principal)

== ENCOUNTER 2025-01-10 14:17 | Outpatient (REF) | payer OTHER, SELFPAY ==
--- OUTSIDE RECORDS SUMMARY | 2025-01-10 17:04 | XMS_ITS | Encounter Summary ---
Author Organization [facility] Address [address] [place] [address] Care Team Providers Care Wool Cleaner Name Role Phone Reyna Zuniga MEDICAL OFFICE TECHNOLOGIST Primary Care Provider [phone] Reason for Visit * Consultation (Routine) - Closed Specialty Diagnoses / Procedures Referred By Jennifer colindres Referred To Contact Podiatry Diagnoses Healthcare maintenance Ilsa Frias MD [address] [address] Phone: tel: fax: Referral ID Status Reason Start Date Expiration Date V isits Requested Visits Authorized [id number] Closed Consult and Treat 11/28/2024 11/28/2025 1 1 Encounter Details Date Type Department Care Team (Latest Contact Info) Description 01/06/2025 3:00 PM EDT PACE External Visit [facility] [address] [place] [phone] Healthcare maintenance Social History Tobacco Use Types [...] Care Team (Late st Contact Info) Description 01/11/2025 10:00 AM EDT Clinical Support [facility] [address] [place] [phone] Kirsten Umanzor RN 01/17/2025 9:00 AM EDT Clinical Support [address] [address] 01/17/2025 10:00 AM EDT Clinical Support [address] [phone] 01/18/2025 9:30 AM EDT Clinical Support [address] [phone] documented as of this encounter Visit Diagnoses Diagnosis Healthcare maintenance documented in this encounter Orders Outpatient Referral Count Last Ordered Date Fir st Ordered Date AMB REFERRAL TO PODIATRY 1 01/06/2025 documented in this encounter Care Teams Wool Cleaner Relationship Specialty Start Date End Date Reyna Zuniga NP [address] [place] [address] PCP - General Family Medicine 11/06/24 documented as of this encounter
--- OUTSIDE RECORDS SUMMARY | 2025-01-10 17:04 | XMS_ITS ---
Author Organization [facility] [place] [address] Phone Care Team Providers Care Foam Dispenser Name Role Phone Reyna Zuniga EMPLOYMENT OFFICE CLERK Primary Care Provider [phone] Program of All-Inclusive Care for the Elderly Status:Enrolled (Active) Start date:10/06/2023 Enrollment date:10/06/2023 Related social drivers of health:Housing Instability, Financial Risk, Transportation, Social Isolation, Food Risk Case Team Name Relationship Phone Juventino Del Angel EMPLOYMENT OFFICE CLERK Nurse Practitioner [phone] Vy Kapadia RN Wood Pole Treater Antonio Andrade OT Occupational Therapist Matt Moreno RN Registered Nurse Anika Watsonitijosh Cifuentes [facility] CenterTire Center Manager Reji Balderas LCSW Agricultural Technical Officer Elis Paniagua RN Wood Pole Treater [place] [facility] [place] Spiritual Care Jessica Roman PT Physical Therapist Ilsa Frias MD Primary Care Provider Continued Care and Services Coordination
--- OUTSIDE RECORDS SUMMARY | 2025-01-10 17:04 | XMS_ITS | Encounter Summary ---
Author Organization [facility] Address [address] [place] [address] Care Team Providers Care Vice Chair Name Role Phone Reyna Zuniga PRODUCTION CONTROL TECHNOLOGIST Primary Care Provider [phone] Reason for Visit * Reason Comments Hypertension Encounter Details Date Type Department Care Team (Late st Contact Info) Description 01/06/2025 3:00 PM EDT Clinical Support [address] [phone] Mae Cintron RN Social History Tobacco Use [...] Description 01/11/2025 10:00 AM EDT Clinical Support Anne Marie [address] [phone] Kirsten Umanzor RN 01/17/2025 9:00 AM EDT Clinical Support [address] [address] 01/17/2025 10:00 AM EDT Clinical Support [address] [address] 01/18/2025 9:30 AM EDT Clinical Support [address] [address] documented as of this encounter Visit Diagnoses Not on filedocumented in this encounter Care Teams Vice Chair Relationship Specialty Start Date End Date Reyna Zuniga NP [address] [place] [address] PCP - General Family Medicine 11/06/24 documented as of this encounter
--- OUTSIDE RECORDS SUMMARY | 2025-01-10 17:04 | XMS_ITS | Clinical Summary ---
Author Organization [facility] Address [place] [address] Phone Care Team Providers Care Gas Welder Apprentice Name Role Phone Reyna Zuniga BRANCH GENERAL MANAGER Primary Care Provider [phone] Medications atorvastatin (LIPITOR) 40 mg tablet 1 [...] Do not crush, chew, or split. Active metoprolol succinate (TOPROL-XL) 25 mg 24 [...] following the same meal each day. Active lisinopriL (PRINIVIL,ZESTR IL) 10 mg tabletIndicatio ns:Primary hypertension Take 2 tablets (20 mg total) by mouth 1 (one) time each day. 1 tab by mouth daily 56 each 01/08/20 25 2025 Active lisinopriL (PRINIVIL,ZESTR IL) 10 mg tablet 1 tab by mouth daily 2024 Discontinued lisinopriL (PRINIVIL,ZESTR IL) 10 mg tablet Take 2 tablets (20 mg total) by mouth 1 (one) time each day. 1 tab by mouth daily 56 each 01/08/20 25 2024 Discontinued(R eorder) Active Problems Problem Noted Date Diagnosed Date [...] of hearing 11/17/2024 Hypercholesterolemia 11/17/2024 Hypertension 11/17/2024 Assessment & Plan (01/08/2025 6:02 PM EDT): Blood pressure is elevated today. Previous to this SBP in the 150s. PAR admits to not taking his blood pressure medication this morning. Will have PAR return to clinic in 1 week. Advised to taking medications every morning. Bradycardia 11/17/2024 Intolerance to cold 11/17/2024 Parkinson's disease without dyskinesia, without mention of fluctuations 11/17/2024 Double vision 11/17/2024 Cataract of left eye 11/17/2024 Assessment & Plan (01/08/2025 6:04 PM EDT): ANGEL is scheduled for left cataract surgery on 01/17/25. No direct contraindication to surgery expect that blood pressure is not within acceptable range. Will have PAR return in 1 week for BP recheck. Reinforced importance of taking BP meds every morning. Encounters Date Type Department Care Team Description 01/07/[address] [phone] Mae Cintron, GRADY 01/06/2025 3:00 PM EDT Clinical Support [address] [phone] Mae Cintron RN 01/06/2025 3:00 PM EDT PACE External Visit [address] [phone] Healthcare maintenance 12/31/2024 12:00 PM EDT Office Visit [address] [phone] Reyna Zuniga NP Primary hypertension (Primary Dx); Cataract of left eye, unspecified cataract type 12/31/[address] [phone] Reyna Zuniga NP Other (Spoke with Angel's son, Angel's son said that he will remind angel of podiatry appt on 01/06 at 3pm and that angel will drive him self to the appt.) 12/23/2024 1:45 PM EDT PACE External Visit [address] [phone] Healthcare maintenance; Edentulous; Dry mouth 12/19/2024 Patient Outreach [address] [phone] Federica Almeida, GRADY from Last 3 Months Immunizations Name Administration Dates Next Due Moderna SARS-CoV-2 COVID-19, mRNA, LNP-S, preservative free 02/13/2022,10/09/2021,02/14/2021 Pneumococcal conjugate 20 va lent (Prevnar 20, PCV 20) 2mo and older 10/09/2021 Tdap Tetanus diptheria acell ular pertussis (Boostrix; Adacel) 7yo and older 10/08/2013 Surgical History Surgery Date Site/Laterality Comments HERNIA REPAIR Right COCHLEAR IMPLANT Left CATARACT EXTRACTION Right Medical History Medical History Date Comments Cochlear implant status History of smoking Status post cataract extract ion and insertion of intraocular lens, right Parkinson disease (CMS/HCC) Hypertension Family History Medical History Relation Name Comments [...] 01/06/2025 3:41 PM EDT Temperature 36.4 ??C (97.5 ??F) 12/31/2024 5:54 PM ED T Respiratory Rate 16 12/31/2024 5:54 PM EDT Oxygen Saturation 97% 12/31/2024 5:54 PM EDT Inhaled Oxygen Concentration - - Weight 61.6 kg (135 lb 11.2 oz) 09/27/2024 4:45 PM EST Height - - Body Mass Index - - Plan of Treatment Upcoming Encounters Date Type Department Care Team (Late st Contact Info) Description 01/11/2025 10:00 AM EDT Clinical Support [address] [phone] Kirsten Umanzor RN 01/17/2025 9:00 AM EDT Clinical Support [address] [phone] 01/17/2025 10:00 AM EDT Clinical Support [address] [phone] 01/18/2025 9:30 AM EDT Clinical Support Anne Marie GALVEZ [address] [phone] Health Maintenance Due Date Last Done Comments [...] age to complete this topic Meningococcal B Vaccine Aged Out No l onger eligible based on patient's age to complete this topic RSV Immunization Patients Under 20 months Aged Out No longer eligible b ased on patient's age to complete this topic Varicella Vaccines Aged Out No longer eligible based on patient's age to complete this topic Procedures Procedure Name Priority Date/Time Associated Diagnosis Comments HM ANNUAL BMP BLOOD TEST Routine 09/27/2024 LIPID [...] Most Recently Relevant to Health Maintenance Insurance [employer] * Guarantor: PACE Account Type Relation to Patient Date of Phone B[place] [address] [employer] Advance Directives Documents on File Type Date Recorded Patient Nuclear Fuel Processing Technician Expl anation Advance Directives and Living Will [...] currently active code status orders. Care Teams Gas Welder Apprentice Relationship Specialty Start Date End Date Reyna Zuniga NP [address] [place] [address] PCP - General Family Medicine 11/06/24
--- OUTSIDE RECORDS SUMMARY | 2025-01-10 17:04 | XMS_ITS | Encounter Summary ---
Author Organization [facility] Address [address] [place] [address] Care Team Providers Care Scada Technician Name Role Phone Reyna Zuniga VICE PRESIDENT FOR PHILANTHROPY Primary Care Provider [phone] Encounter Details Date Type Department Care Team (Late st Contact Info) Description 01/07/2025 Telephone [facility] [address] [phone] Mae Cintron RN Social History Tobacco Use Types Packs/Day Years Used Date Smoking Tobacco: Former Cigarettes Comments:Ex-smoker Sex and Gender Information Value Date Recorded Sex Assigned at Not on file Legal Sex Male 9:32 AM EST Gender Identity Not on file Sexual Orientation Not on file documented as of this encounter Plan of Treatment Upcoming Encounters Date Type Department Care Team (Late Contact Info) Description 01/11/2025 10:00 AM EDT Clinical Support [facility] [address] [phone] Kirsten Umanzor, GRADY 01/17/2025 9:00 AM EDT Clinical Support [facility] [address] [phone] 01/17/2025 10:00 AM EDT Clinical Support [facility] [address] 01/18/2025 9:30 AM EDT Clinical Support [facility] [address] [place] [address] documented as of this encounter Visit Diagnoses Not on filedocumented in this encounter Care Teams Scada Technician Relationship Specialty Start Date End Date Reyna Zuniga NP [address] [place] [address] PCP - General Family Medicine 11/06/24 documented as of this encounter
== END 2025-01-10 14:18 | disposition home or self-care (01) ==
LOC: HO.SH 14:17
PROVIDERS: PCP Nurse Practitioner Family; Visit Provider Nurse Practitioner Family
DX: Z01.118 Encounter for examination of ears and hearing with other abnormal findings (principal)
CPT/HCPCS: 99499

== ENCOUNTER 2025-03-21 09:31 | Outpatient (REF) | payer OTHER, SELFPAY ==
--- OUTSIDE RECORDS SUMMARY | 2025-03-21 10:22 | XMS_ITS | Clinical Summary ---
Author Organization [facility] Address [facility] [address] Phone Care Team Providers Care Back Tufter Name Role Phone Reyna Zuniga CERTIFIED MORTICIAN Primary Care Provider [phone] Medications atorvastatin (LIPITOR) 40 mg tablet 1 tab by mouth every day at bedtime Active carbidopa-levodopa (SINEMET) 25-100 mg per tablet 1.5 tabs [...] the same meal each day. Active lisinopriL (PRINIVIL,ZESTRIL) 10 mg tabletIndications: Primary hypertension Take 2 tablets (20 mg total) by mouth 1 (one) time each day. 1 tab by mouth daily 56 each 01/08/20 026 Active QUEtiapine (SEROquel) 25 mg tabletIndications: Parkinson's disease without dyskinesia, with fluctuating manifestations (CMS/HCC V24, CMS/HCC V28) Take 1 tablet (25 mg total) by mouth 2 (two) times a day. Take 1 tablet 6 pm and 1 tablet at bedtime 56 each 01/13/20 25 026 Active Active Problems Problem Noted Date Diagnosed Date Other specified disorders of bone density and structure, multiple sites 11/17/2024 Overview (11/17/2024): DEXA: Z13.820, M85.89 Allergic rhinitis 11/17/2024 Benign prostatic hyperplasia with lower urinary tract symptoms 11/17/2024 Overview (11/17/2024): BPH with LUTS Nocturia 11/17/2024 Cervicalgia 11/17/2024 Mild cognitive impairment 11/17/2024 Constipation 11/17/2024 Depression, major, recurrent, mild (CMS/HCC V24) 11/17/2024 Anxiety 11/17/2024 Edentulous 11/17/2024 Overview (11/17/2024): [...] disease without dyskinesia, without mention of fluctuations (CMS/HCC V24, CMS/HCC V28) 11/17/2024 Double vision 11/17/2024 Cataract of left eye 11/17/2024 Assessment & Plan (01/08/2025 6:04 PM EDT): ANGEL is scheduled for left cataract surgery on 01/17/25. No direct contraindication to surgery expect that blood pressure is not within acceptable range. Will have ANGEL return in 1 week for BP recheck. Reinforced importance of taking BP meds every morning. Encounters Date Type Department Care Team Description 03/15/2025 11:30 AM EDT [email or web address] External Visit Remote Assistant [address] [phone] Healthcare maintenance; Cataract of left eye, unspecified cataract type; Double vision; Glaucoma suspect, unspecified laterality 03/10/2025 10:00 AM EDT [email or web address] External Visit [address] [phone] Edentulous 03/09/2025 Telephone Remote Assistant [place] [email or web address] [address] [phone] Reyna Zuniga NP Other (Left vm on son's phone with reminder that angel has dental appt tomorrow 65 at 10, and that [facility] will be sending a van to pick him up and take him home from his appts and to call if he has any quesitons. ); Scheduling 02/15/2025 Health Home Core Service [facility] [email or web address] [address] [phone] Jia Lowe RN 02/11/2025 Telephone Remote Assistant [place] [email or web address] [address] [address] Reyna Zuniga NP Other (Spoke with angel's son, let him know about dental appt on March 10 at 10:00 for dental extraction. Angel's son said he will let angel know of appt and txp will pick him up.) 01/18/2025 9:30 AM EDT [email or web address] External Visit Remote Assistant [address] [phone] 01/17/2025 1:00 PM EDT [facility] External Visit [address] [phone] Senile cataract of right eye, unspecified age-related cataract type 01/17/2025 10:00 AM EDT [facility] External Visit [address] [phone] Hard of hearing 01/11/2025 10:00 AM EDT Clinical Support [address] [address] Kirsten Umanzor, GRADY 01/07/[address] [phone] Mae Cintron, GRADY 01/06/2025 3:00 PM EDT Clinical Support [address] [address] Mae Cintron, GRADY 01/06/2025 3:00 PM EDT [facility]ACE External Visit [address] [address] Healthcare maintenance 12/31/2024 12:00 PM EDT Office Visit [address] [address] Reyna Zuniga NP Primary hypertension (Primary Dx); Cataract of left eye, unspecified cataract type; Parkinson's disease without dyskinesia, with fluctuating manifestations (CMS/HCC V24, CMS/HCC V28) 12/31/[address] [address] Reyna Zuniga NP Other (Spoke with Angel's son, Angel's son said that he will remind angel of podiatry appt on 01/06 at 3pm and that angel will drive him self to the appt.) 12/23/2024 1:45 PM EDT PACE External Visit [address] [address] Healthcare maintenance; Edentulous; Dry mouth 12/19/2024 Patient Outreach [facility] [address] [place] [address] Federica Almeida, GRADY from Last 3 Months [...] insertion of intraocular lens, right Parkinson disease ([facility] V24, [facility] V28) Hypertension Family History Medical History Relation Name [...] Sign Reading Time Taken Comments Blood Pressure 138/82 01/12/2025 9:13 AM EDT Pulse 74 01/12/2025 9:13 AM EDT Temperature 36.4 ??C (97.5 ??F) 12/31/2024 [...] Care Team (Late st Contact Info) Description 03/25/2025 10:00 AM EDT PACE Assessment [facility] [address] [place] [phone] Reyna Zuniga NP [address] [address] Health Maintenance Due Date Last Done Comments [...] mg/dL Blood Venous blood specimen / Unknown us Historical Provider LAB BLOOD ORDERABLES Lali l Result from Last 3 Months or Most Recently Relevant to Health Maintenance Insurance [email or web address] * Guarantor: PACE Account Type Relation to Patient Date of Phone [place] [address] [email or web address] Advance Directives Documents on File Type Date Recorded Patient Electroplater Expl anation Advance Directives and Living Will [...] currently active code status orders. Care Teams Back Tufter Relationship Specialty Start Date End Date Reyna Zuniga NP [address] [place] [address] PCP - General Family Medicine 11/06/24
[2025-03-21 11:17] LABS: Prostate Specific Antigen 4.35 ng/mL (<0.05-4.0)
== END 2025-03-21 09:32 | disposition home or self-care (01) ==
LOC: HO.LAB 09:31
PROVIDERS: PCP Nurse Practitioner Family; Visit Provider Nurse Practitioner Family
DX: R97.20 Elevated prostate specific antigen [PSA] (principal); N40.0 Benign prostatic hyperplasia without lower urinary tract symptoms; R35.1 Nocturia; Z12.5 Encounter for screening for malignant neoplasm of prostate
CPT/HCPCS: 36415; 84153

== ENCOUNTER 2025-03-22 12:43 | Outpatient (AMB) | payer OTHER, SELFPAY ==
--- NOTE | 2025-03-22 13:03 | MHC.OFFVIS ---
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 Required: No Accompanied by: Son Allergies No Known Allergies [No Known Allergies*] Allergy (Verified 03/22/25 13:36) Medication List - Last Reconciled 03/22/25 by DIONISIO English- atorvastatin 40 mg PO BEDTIME 90 days carbidopa-levodopa 25-100 mg 1.5 tabs PO QID 90 days escitalopram oxalate 5 mg PO DAILY 90 days finasteride 5 mg PO DAILY 90 days fluticasone propionate 50 mcg/actuation 2 sprays intranasal DAILY PRN 30 days lisinopril 5 mg PO DAILY melatonin 3 mg PO BEDTIME PRN metoprolol succinate ER 25 mg PO DAILY quetiapine 25 mg PO BEDTIME sennosides (senna) 17.2 mg (2 x 8.6 mg) PO BEDTIME 30 days tamsulosin 0.4 mg PO BEDTIME HPI Comments Details: Vincenzo is a very pleasant 74-year-old Y[place] male patient of Dr. Avalos who is accompanied by his son Blake at today's office visit. He has a past medical history of erectile dysfunction, hearing impairment, Parkinson's disease, hypercholesteremia, and Lewy bodies dementia. He presents to the office today for follow-up of his elevated PSA, renal cysts, and enlarged prostate. In discussion with the patient today he reports to be doing and feeling well. When asked he reports compliance with finasteride and Flomax as prescribed. Recent PSA results reviewed with the patient today as noted and trended below... 08/28 7.2 % free PSA 21%. 12/27 2.7, 04/28 2.5% free PSA 24%, 08/29 2.5, 03/30 4.4 Previous workup has included a retroperitoneal ultrasound 08/28 noting right kidney with no calculi or hydronephrosis. Multiple simple renal cyst the largest mid pole 8 x 7 x 5 mm. Left kidney with no calculi, and or hydronephrosis. There are simple cyst upper pole 7 x 8 x 7 mm and 5 x 5 x 5 mm. The bladder is well distended and normal. Bilateral ureteral jets are demonstrated. Pre void bladder volume is approximately 230 mL. Postvoid bladder volumes proximally 20 mL. Enlarged heterogeneous prostate causing inferior and intentation of the urinary bladder. Prostate volume is approximately 90 mLs. He currently denies any bothersome urinary issues or concerns. He denies urinary urgency, urinary frequency, incontinence, hematuria, dysuria, foul smelling urine, changes to urinary stream, flank pain, fever, and or chills. In office urinalysis results reviewed with the patient today. PVR 17mL. We did discussed slight rise in PSA and potential causes of this finding as well as further interventions and risks and benefits of these interventions. He otherwise offers no other issues or concerns at this time. [facility] Medical History Hallucinations Benign prostate hyperplasia Parkinson's disease without dyskinesia or fluctuating manifestations Erectile dysfunction Impaired fasting glucose Hearing impairment Parkinson's disease Pure hypercholesterolemia Benign essential hypertension Surgical History History of cochlear implant (~01/03/23) History of hernia surgery Family History Father No problems noted. Mother No problems noted. Social History Household Members: None Housing: House Do you presently have visiting nurse or other home services: No Alcohol intake: current Alcohol intake frequency: holidays/special occasions only Alcohol type: beer Comment: occasionally Patient Tobacco Use Status: Former Tobacco user Tobacco use type: Cigarette e-Cigarette/Vaping Use: Never Used Second Hand Smoke Exposure: No service: No Current occupational status: retired Cognitive needs: No Hearing needs: Yes (hearing aide) Vision needs: Yes (reading glasses) Review of Systems Const Reports as per HPI Eyes Reports no additional complaints ENT Reports as per HPI Card Reports as per HPI Resp Reports no additional complaints GI Reports no additional complaints Reports as per HPI Musc Reports as per HPI Neuro Reports as per HPI Psych Reports no additional complaints Endo Reports no additional complaints Zheng/Lymph Reports no additional complaints Aller/Immun Reports no additional complaints Physical Exam Const General: cooperative, healthy appearing, comfortable, no acute distress, well developed, alert and awake Nutritional Appearance: thin Orientation/consciousness: oriented to person Limitations: no limitations HEENT Head: Yes normal to inspection, Yes normocephalic and Yes atraumatic Ears: hearing grossly normal bilaterally Eyes General: appearance normal, both eyes and all related structures Neck Neck: Yes normal visual inspection and Yes trachea midline Chest Chest palpation & inspection: normal inspection of the chest Resp Effort & Inspection: normal respiratory effort and able to speak in complete sentences Cardio Rate: regular rate GI Inspection: Yes normal to inspection General: Yes no CVA tenderness Back/Spine/Pelvis Back: no CVA tenderness Skin General skin exam: no rashes or lesions noted Neuro Other: tremors noted bilaterally General: oriented to person Extrem General: Yes normal to inspection Psych Appearance: grossly normal and well kempt Mental Status: mental status grossly normal Speech and movement: Normal speech and movement present and Clear speech present Affect: normal affect Attitude: cooperative Thought process: Normal thought process present Thought content: Normal thought content present Insight: Fair insight present (Psych) Judgement: Fair judgement present (Psych) Results AMB Urinalysis, Automated UA Leukoctes 0 Fariba/uL Last Edit by Thania Moreno on 03/22/25 13:23 UA Nitrite Negative Last Edit by Thania Moreno on 03/22/25 13:23 UA Urobilinogen 3.5 mg/dL Last Edit by Thania Moreno on 03/22/25 13:23 UA Protein 1 mg/dL Last Edit by Thania Moreno on 03/22/25 13:23 UA pH 6.5 Last Edit by Thania Moreno on 03/22/25 13:23 UA Blood 0 Juan/uL Last Edit by Thania Moreno on 03/22/25 13:23 UA Specific [place] 1.010 Last Edit by Thania Moreno on 03/22/25 13:23 UA Ketone Negative Last Edit by Thania Moreno on 03/22/25 13:23 UA Bilirubin 0 mg/dL Last Edit by Thania Moreno on 03/22/25 13:23 UA Glucose 0 mg/dL Last Edit by Thania Moreno on 03/22/25 13:23 Assessment & Plan Assessment & Plan (1) Elevated PSA: Code(s): R97.20 - Elevated prostate specific antigen [PSA] Category: Medical (2) Enlarged prostate: Code(s): N40.0 - Benign prostatic hyperplasia without lower urinary tract symptoms Category: Medical (3) Benign prostate hyperplasia: Code(s): N40.0 - Benign prostatic hyperplasia without lower urinary tract symptoms Category: Medical Qualifiers: Lower urinary tract symptom presence: symptoms present Lower urinary tract symptom detail: urinary frequency Qualified Code(s): N40.1 - Benign prostatic hyperplasia with lower urinary tract symptoms; R35.0 - Frequency of micturition (4) Nocturia: Code(s): R35.1 - Nocturia Category: Medical Plan In office urinalysis results reviewed with the patient today; as noted above. PVR 17 mL. Recent PSA results reviewed with the patient in his son today; as noted above. Continue finasteride and Flomax as prescribed. We did discussed slight increase in PSA; we discussed potential causes for slight increase in PSA as well as further treatment options and risks and benefits of these treatment options. He currently denies any bothersome urinary issues or concerns. He reports be happy with current voiding parameters. Will continue with close surveillance monitoring. Will obtain PSA in 4 months. Follow-up in 4 months with PSA to be completed prior; or sooner with any issues, concerns, and or questions. Orders: Orders AMB Urinalysis Automated Today Z13.9 - Encounter for screening, unspecified AMB Post Void Residual by ultrasound Today N40.1 - Benign prostatic hyperplasia with lower urinary tract symptoms, R35.0 - Frequency of micturition PSA,Total (Free>4and<10) 4 Months N40.0 - Benign prostatic hyperplasia without lower urinary tract symptoms, R97.20 - Elevated prostate specific antigen [PSA] Patient Instructions: The patient had an opportunity to ask questions regarding the treatment plan. All questions were answered. Physical exam, labs, and imaging were discussed and reviewed in detail. As well as risks, benefits, and discussion of treatment choices. No major barriers to understanding were identified. The patient expressed understanding and agreement with the above treatment plan. The patient was made aware they should contact our office by phone for worsening of their current condition, the appearance of new symptoms, or with any questions or concerns. Compliance is encouraged with any medications and follow up testing that is ordered. It is a privilege to be allowed the opportunity to participate in? your urological care.? Again, if you have any questions or concerns If you have any questions or concerns please do not hesitate to contact me. The office is [phone]. This note is constructed using voice recognition software. While every effort has been made to ensure accuracy lawnmower mechanic errors may have been included. Yours sincerely, DIONISIO English-BENEDICTO Coding Level of Care Code Est Pt Level 3 (13385) Complex EM visit Add On G2211 Diagnoses Elevated PSA R97.20 Enlarged prostate N40.0 Benign prostatic hyperplasia with urinary frequency N40.1; R35.0 Lower urinary tract symptom presence: symptoms present Lower urinary tract symptom detail: urinary frequency Nocturia R35.1
--- OUTSIDE RECORDS SUMMARY | 2025-03-22 14:22 | XMS_ITS | Clinical Summary ---
Author Organization [facility]ly [facility] [place] [address] Phone Care Team Providers Care Automatic Teller Machine Servicer Name Role Phone Reyna Zuniga WOOL HAT HYDRAULICKER Primary Care Provider Medications atorvastatin (LIPITOR) 40 mg tablet 1 [...] daily Do not crush or chew. Active tamsulosin (FLOMAX) 0.4 mg 24 hr [...] 1 tablet at bedtime 56 each 01/13/20 026 Active polyethylene glycol (MIRALAX) 17 gram packetIndications: Constipation, unspecified constipation type Take 17 g by mouth 1 (one) time each day. 28 packet 03/22/20 25 026 Active polyethylene glycol (PEG) 17 gram/dose oral powder 17 grams by mouth dissolved in fluid daily 025 Discontin ued(Dupli malick order) Active Problems Problem Noted Date Diagnosed Date [...] disease without dyskinesia, without mention of fluctuations (CMS/[facility] V24, CMS/[facility] V28) 11/17/2024 Double vision 11/17/2024 Cataract of [...] Care Team Description 03/15/2025 11:30 AM EDT PACE External Visit [facility] [address] [phone] Healthcare maintenance; Cataract of left eye, unspecified cataract type; Double vision; Glaucoma suspect, unspecified laterality 03/10/2025 10:00 AM EDT PACE External Visit [facility] [address] [phone] Edentulous 03/09/2025 Telephone [facility] [address] [phone] Reyna Zuniga NP Other (Left vm on son's phone with reminder that angel has dental appt tomorrow 6/5 at 10, and that [facility] will be sending a van to pick him up and take him home from his appts and to call if he has any quesitons. ); Scheduling 02/15/2025 Health Home Core Service [facility] [address] [phone] Jia Lowe RN 02/11/2025 Telephone [facility] [address] [phone] Reyna Zuniga NP Other (Spoke with angel's son, let him know about dental appt on March 10 at 10:00 for dental extraction. Angel's son said he will let angel know of appt and txp will pick him up.) 01/18/2025 9:30 AM EDT PACE External Visit [address] [phone] 01/17/2025 1:00 PM EDT PACE External Visit [address] [phone] Senile cataract of right eye, unspecified age-related cataract type 01/17/2025 10:00 AM EDT PACE External Visit [address] [phone] Hard of hearing 01/11/2025 10:00 AM EDT Clinical Support [address] [phone] Kirsten Umanzor, GRADY 01/07/[address] [address] Mae Cintron, RN 01/06/2025 3:00 PM EDT Clinical Support [address] [address] Mae Cintron, RN 01/06/2025 3:00 PM EDT PACE External Visit [address] [address] Healthcare maintenance 12/31/2024 12:00 PM EDT Office Visit [address] [phone] Reyna Zuniga NP Primary hypertension (Primary Dx); Cataract of left eye, unspecified cataract type; Parkinson's disease without dyskinesia, with fluctuating manifestations (CMS/HCC V24, CMS/HCC V28) 12/31/[address] [address] Reyna Zuniga NP Other (Spoke with Angel's son, Angel's son said that he will remind angel of podiatry appt on 01/06 at 3pm and that par will drive him self to the appt.) 12/23/2024 1:45 PM EDT PACE External Visit [facility] [place] [address] [place] [address] Healthcare maintenance; Edentulous; Dry mouth from Last 3 Months Immunizations Name Administration [...] insertion of intraocular lens, right Parkinson disease (CMS/HCC V24, CMS/HCC V28) Hypertension Family History Medical History Relation [...] Description 03/25/2025 10:00 AM EDT PACE Assessment [facility] [address] [place] [address] Reyna Zuniga, WOOL HAT HYDRAULICKER [address] [facility] [address] [place] [address] Health Maintenance Due Date Last Done Comments [...] Most Recently Relevant to Health Maintenance Insurance [employer] * Guarantor: PACE Account Type Relation to Patient Date of Phone Billing Address [place] [address] [employer] Advance Directives Documents on File Type Date Recorded Patient Lab Nurse Expl anation Advance Directives and Living Will [...] currently active code status orders. Care Teams Automatic Teller Machine Servicer Relationship Specialty Start Date End Date Reyna Zuniga NP [address] [place] [phone] PCP - General Family Medicine 11/06/24
== END 2025-03-22 13:35 | disposition home or self-care (01) ==
LOC: HO.HUSH 12:43
PROVIDERS: PCP Internal Medicine; Visit Provider Nurse Practitioner Family
DX: R97.20 Elevated prostate specific antigen [PSA] (principal); N40.0 Benign prostatic hyperplasia without lower urinary tract symptoms; N40.1 Benign prostatic hyperplasia with lower urinary tract symptoms; R35.0 Frequency of micturition; R35.1 Nocturia; Z13.9 Encounter for screening, unspecified
CPT/HCPCS: 99213; G2211

== ENCOUNTER → 2025-03-22 12:43 | Outpatient (BNVA) | payer OTHER, SELFPAY | PROVIDERS: PCP Internal Medicine; Visit Provider Nurse Practitioner Family | DX: R97.20 Elevated prostate specific antigen [PSA] (principal); N40.1 Benign prostatic hyperplasia with lower urinary tract symptoms; R35.0 Frequency of micturition | CPT/HCPCS: 81003; 99212 ==

== ENCOUNTER 2025-04-06 09:46 | Outpatient (REF) | payer OTHER, SELFPAY ==
--- NOTE | 2025-04-06 14:20 | MHC.AU.HA3 ---
Hearing Instrument Follow-Up- Binaural Date of Visit: 04/06/25 Right Ear: Make, Model, Color, Serial Number: Anum Q 90 SP Manager Metal Repair Warranty: Manager Metal Loss and Damage Warranty: [facility] Service Plan: Battery Size: 13 Barman/Slim Tube: Earmold/Dome/CShell/SlimTip: Type of Wax Guard: Dispensed By: [facility] Date of Fitting: Left Ear: Make, Model, Color, Serial Number: Cochlear Implant Follow-Up Summary: Old Phonak Anum Q50-SP BARAHONA/EM dropped off. Tone hook snapped, tubing hard/discolored. Cleaned BARAHONA (1). Cleaned EM (1). Replaced tubing (1). Replaced tone hook (1). Replaced microphone covers (1). [id number] x5. Listening check demonstrated BARAHONA amplifying clearly. Current EM discolored, hard, rips/tears - Recommend new EM. To front office for fruit or nut picker. Recommendations: Hearing instrument follow-up or maintenance as needed. Please contact our clinic with any questions or concerns. Diagnosis Code(s): Primary Diagnosis: H90.6 Mixed Hearing Loss, Bilateral Signature: Provider: Fredy Braun, [facility]
== END 2025-04-06 09:47 | disposition home or self-care (01) ==
LOC: HO.HAP 09:46
PROVIDERS: PCP Nurse Practitioner Family; Visit Provider Nurse Practitioner Family
DX: Z13.89 Encounter for screening for other disorder (principal)

== ENCOUNTER 2025-04-11 12:03 | Outpatient (REF) | payer OTHER, SELFPAY ==
--- OUTSIDE RECORDS SUMMARY | 2025-04-11 12:54 | XMS_ITS | Clinical Summary ---
Author Organization [facility] Address [place] [address] Phone Care Team Providers Care Security Operations Engineer Name Role Phone Reyna Zuniga RETAIL GROCER Primary Care Provider [phone] Allergies No known active allergies Medications atorvastatin (LIPITOR) 40 mg tablet 1 [...] Do not crush, chew, or split. Active tamsulosin (FLOMAX) 0.4 mg 24 hr capsule 1 cap by mouth every day at bedtime Capsules should be taken 30 minutes following the same meal each day. Active QUEtiapine (SEROquel) 25 mg tabletIndications: Parkinson's disease without dyskinesia, with fluctuating manifestations (CMS/HCC V24, CMS/HCC V28) Take 1 tablet (25 mg total) by mouth 2 (two) times a day. Take 1 tablet 6 pm and 1 tablet at bedtime 56 each 01/13/20 25 026 Active polyethylene glycol (MIRALAX) 17 gram packetIndications: Constipation, unspecified constipation type Take 17 g by mouth 1 (one) time each day. 28 packet 03/22/20 25 026 Active varicella-zoster [id number], PF, (Shingrix, PF,) 50 mcg/0.5 mL suspension for reconstitutionIndi cations:Encounter for immunization Inject 0.5 mL into the shoulder, thigh, or buttocks every 6 (six) months. 1 each 03/25/20 25 Active lisinopriL (PRINIVIL,ZESTRIL) 20 mg tabletIndications: Primary hypertension Take 2 tablets (40 mg total) by mouth 1 (one) time each day. 56 each 03/25/20 25 026 Active metoprolol succinate (TOPROL-XL) 25 mg 24 hr tablet 1 tab by mouth daily Do not crush or chew. 025 Discontin ued(Thera py completed ) polyethylene glycol (PEG) 17 gram/dose oral powder 17 grams by mouth dissolved in fluid daily 025 Discontin ued(Dupli malick order) lisinopriL (PRINIVIL,ZESTRIL) 10 mg tabletIndications: Primary hypertension Take 2 tablets (20 mg total) by mouth 1 (one) time each day. 1 tab by mouth daily 56 each 01/08/20 25 025 Discontin ued(Reord er) lisinopriL (PRINIVIL,ZESTRIL) 10 mg tabletIndications: Primary hypertension Take 2 tablets (20 mg total) by mouth 1 (one) time each day. 1 tab by mouth daily 56 each 03/25/20 25 025 Discontin ued(Dose adjustmen t) Active Problems Problem Noted Date Diagnosed Date Tinnitus, bilateral 03/25/2025 Assessment & Plan (03/26/2025 3:00 PM EDT): Chronic condition; stable. Continue to monitor. Other specified disorders of bone density and structure, multiple sites 11/17/2024 Overview (11/17/2024): DEXA: Z13.820, M85.89 Assessment & Plan (03/26/2025 3:08 PM EDT): Chronic condition; stable. Continue to monitor vitamin D levels to maintain vitamin D level above 30. Check vitamin D level yearly. Allergic rhinitis 11/17/2024 Assessment & Plan (03/26/2025 3:00 PM EDT): Chronic condition; stable. Symptoms are minimal. Continue to monitor and treat as needed. Benign prostatic hyperplasia with lower urinary tract symptoms 11/17/2024 Overview (11/17/2024): BPH with LUTS Assessment & Plan (03/26/2025 3:07 PM EDT): Chronic condition; stable on current medications. Continue to monitor. Cervicalgia 11/17/2024 Assessment & Plan (03/26/2025 2:55 PM EDT): Chronic condition; stable. Intermittent pain. Continue stretching exercises. Use APAP as needed. Mild cognitive impairment 11/17/2024 Assessment & Plan (03/26/2025 3:11 PM EDT): Chronic condition; stable. Continue to monitor for signs and symptoms of decline. Constipation 11/17/2024 Assessment & Plan (03/26/2025 3:05 PM EDT): Chronic condition; stable. Continue current medication. Depression, major, recurrent, mild (CMS/HCC V24) 11/17/2024 Assessment & Plan (03/26/2025 3:14 PM EDT): Chronic condition; stable. PHQ-9 score of 3. Continue current medication. Monitor. Anxiety 11/17/2024 Assessment & Plan (03/26/2025 3:14 PM EDT): Chronic condition; stable. Continue current medication. Edentulous 11/17/2024 Overview (11/17/2024): Edentulous, Partial Assessment & Plan (03/26/2025 3:06 PM EDT): Chronic condition; stable. Still has some teeth. Complaining of pain in right lower aspect. Refer to dentist. Dry mouth 11/17/2024 Assessment & Plan (03/26/2025 3:06 PM EDT): Chronic condition; stable. Continue to monitor and treat as needed. Unsteady gait 11/17/2024 Assessment & Plan (03/26/2025 3:14 PM EDT): Chronic condition; stable. Does not use any DME for ambulation. Discussed fall precautions. Hard of hearing 11/17/2024 Assessment & Plan (03/26/2025 2:56 PM EDT): Chronic condition; stable. Uses hearing aid in right ear. Has a cochlear implant in left ear. Hypercholesterolemia 11/17/2024 Assessment & Plan (03/26/2025 3:09 PM EDT): Chronic condition; continue daily statin therapy. Check yearly any lipid panels. Hypertension 11/17/2024 Assessment & Plan (03/26/2025 3:01 PM EDT): Chronic condition. Blood pressure is elevated. Has been elevated the past 2 visits. Increased dose of lisinopril to 40 mg daily. Need to discontinue metoprolol in setting of bradycardia. Follow-up and monitor blood pressures. Assessment & Plan (01/08/2025 6:02 PM EDT): Blood pressure is elevated today. Previous to this SBP in the 150s. PAR admits to not taking his blood pressure medication this morning. Will have PAR return to clinic in 1 week. Advised to taking medications every morning. Bradycardia 11/17/2024 Assessment & Plan (03/26/2025 3:05 PM EDT): EKG performed heart rate 46. Need to discontinue metoprolol. Monitor. Intolerance to cold 11/17/2024 Assessment & Plan (03/26/2025 3:14 PM EDT): Secondary to Parkinson's disease. Has intermittent episodes of diaphoresis. Continue to monitor. Parkinson's disease without dyskinesia, with fluctuating manifestations (CMS/HCC V24, CMS/HCC V28) 11/17/2024 Assessment & Plan (03/26/2025 3:18 PM EDT): Chronic condition; labile. Continues to have signs of diaphoresis. Also continues dose of quetiapine recently increased by neurologist due to having episodes hallucinations at night. Continue carbidopa-levodopa as prescribed. Continue to follow-up with neurologist as directed. Double vision 11/17/2024 Assessment & Plan (03/26/2025 3:15 PM EDT): Chronic condition; continue to follow-up with psychiatric technician assistant as directed. Cataract of left eye 11/17/2024 Assessment & Plan (03/26/2025 3:00 PM EDT): Chronic condition; stable. Continue to follow-up with psychiatric technician assistant as indicated. Assessment & Plan (01/08/2025 6:04 PM EDT): PAR is scheduled for left cataract surgery on 01/17/25. No direct contraindication to surgery expect that blood pressure is not within acceptable range. Will have PAR return in 1 week for BP recheck. Reinforced importance of taking BP meds every morning. Encounters Date Type Department Care Team Description 04/06/2025 10:00 AM EDT PACE External Visit [address] [phone] 04/04/2025 3:00 PM EDT Clinical Support [address] [phone] Vy Kapadia RN Dizziness (Primary Dx) 04/03/2025 PACE On-Call [address] [phone] Reyna Zuniga NP 04/02/2025 PACE Fall [address] [phone] Juventino Del Angel NP 04/01/2025 Plan of Care Documentation [address] [address] 03/29/[address] [phone] Mae Cintron RN 03/25/2025 10:00 AM EDT PACE Assessment [address] [address] Mae Cintron, GRADY Routine physical examination (Primary Dx) 03/25/2025 10:00 AM EDT PACE Assessment [address] [address] Reyna Zuniga NP Hypercholesterolemia (Primary Dx); Primary hypertension; Examination; Encounter for immunization; Atypical mole; Parkinson's disease without dyskinesia, with fluctuating manifestations (CMS/HCC V24, CMS/HCC V28); Depression, major, recurrent, mild (CMS/HCC V24); Cervicalgia; Hard of hearing; Senile cataract of left eye, unspecified age-related cataract type; Tinnitus, bilateral; Seasonal allergic rhinitis due to pollen; Bradycardia; Chronic idiopathic constipation; Edentulous; Dry mouth; Benign prostatic hyperplasia with urinary frequency; Other specified disorders of bone density and structure, multiple sites; Mild cognitive impairment; Anxiety; Unsteady gait; Intolerance to cold; Double vision 03/15/2025 11:30 AM EDT PACE External Visit [address] [address] Healthcare maintenance; Cataract of left eye, unspecified cataract type; Double vision; Glaucoma suspect, unspecified laterality 03/10/2025 10:00 AM EDT PACE External Visit [address] [phone] Edentulous 03/09/[address] [address] Reyna Zuniga, GIOVANNA Other (Left vm on son's phone with reminder that angel has dental appt tomorrow 03/10 at 10, and that [facility] will be sending a van to pick him up and take him home from his appts and to call if he has any quesitons. ); Scheduling 02/15/2025 Health Home Core Service [address] [address] Jia Lowe RN 02/11/[address] [phone] Reyna Zuniga, GIOVANNA Other (Spoke with angel's son, let him know about dental appt on March 10 at 10:00 for dental extraction. Angel's son said he will let angel know of appt and txp will pick him up.) 01/18/2025 9:30 AM EDT [facility] External Visit [address] [address] 01/17/2025 1:00 PM EDT [facility] External Visit [address] [address] Senile cataract of right eye, unspecified age-related cataract type 01/17/2025 10:00 AM EDT [facility] External Visit [address] [address] Hard of hearing 01/11/2025 10:00 AM EDT Clinical Support [address] [phone] Kirsten Umanzor RN from Last 3 Months Immunizations Name [...] insertion of intraocular lens, right Parkinson disease (CMS/[facility] V24, CMS/[facility] V28) Hypertension Family History Medical History Relation Name Comments CVA Father Chronic bronchitis Mother Relation Name Status Comments Father Mother Social History Tobacco Use Types Packs/Day Years Used Date Smoking Tobacco: Former Cigarettes Smokeless Tobacco: Never Tobacco Cessation:Counseling Given: Not Answered Comments:Ex-smoker Sex and Gender Information Value Date Recorded Sex Assigned at Not on file Legal Sex Male 9:32 AM EST Gender Identity Not on file Sexual Orientation Not on file Obstetrics History Last Filed Vital Signs Vital Sign Reading Time Taken Comments Blood Pressure 106/68 04/04/2025 2:00 PM EDT Pulse 60 04/04/2025 2:00 PM EDT Temperature 36.2 C (97.1 F) 03/25/2025 2:54 PM EDT Respiratory Rate 16 04/04/2025 2:00 PM EDT Oxygen Saturation 97% 03/25/2025 2:54 PM EDT Inhaled Oxygen Concentration - - Weight 61.1 kg (134 lb 12.8 oz) 04/04/2025 2:00 PM EDT Height 167.6 cm (5' 6 ) 03/30/2025 3:00 PM EDT Body Mass Index 21.76 03/30/2025 3:00 PM EDT Plan of Treatment Upcoming Encounters Date Type Department Care Team (Late st Contact Info) Description 04/22/2025 12:00 PM EDT Office Visit [facility] [address] [place] [phone] Reyna Zuniga NP 200 [facility] [address] [place] [address] 05/12/2025 11:30 AM EDT Clinical Support [facility] [place] [address] [place] [address] 05/16/2025 2:45 PM EDT PACE External Visit [facility] [address] [place] [address] 05/24/2025 10:40 AM EDT [facility] [address] [address] Health Maintenance Due Date Last Done Comments Zoster Vaccines (1 of 2) 1998 RSV Immunization Adult Patients (1 - 1-dose 75+ series) 2023 DTaP,Tdap,and Td Vaccines (2 - Td or Tdap) 10/08/2023 10/08/2013 COVID-19 Vaccine (4 - 2023-2 5 season) 2024 02/13/2022, 10/09/2021, 02/14/2021 Falls Risk Assessment 09/08/2024 Hepatitis C Screening 09/08/2024 Social Influencers of Health Screening 09/08/2024 Influenza Vaccine (#1) 2025 Hypertension/CHF/CAD Annual BMP Blood Test 09/27/2025 09/27/2024 Depression Screening 03/25/2026 03/25/2025 Cholesterol Screening (Lipid Panel) 10/17/2028 10/17/2023 Pneumococcal [...] * Annual BMP Blood Test (09/27/2024) Pathologist [facility] Annual BMP Blood Test Abstracted Historical Provider HEALTH MAINTENANCE Final Result * (ABNORMAL) Lipid panel (10/17/2023) Pathologist [facility] LDL/HDL Ratio 3 <=5 Triglycerides 79 <=150 mg/dL Cholesterol 110 <=200 mg/dL HDL 37(A) >=40 mg/dL LDL Cholesterol 57 <=100 mg/dL Blood Venous blood specimen / Unknown Historical Provider LAB BLOOD ORDERABLES Lali l Result from Last 3 Months or Most Recently Relevant to Health Maintenance Insurance [employer] * Guarantor: PACE Account Type Relation to Patient Date of Phone Billing Address [place] Demetri [place] [id number] [employer] Member Subscriber Plan / Payer (Ef fective 2023-Present) Name:Analiv Vincenzo Relation to Subscriber:Self Name:Ida Vincenzo Payer ID:[id number] Group ID:Not on file Type:Not on file Address: DEMETRI IAN [id number] Advance Directives Documents on File Type Date Recorded 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 Care Teams Security Operations Engineer Relationship Specialty Start Date End Date Reyna Zuniga NP [address] [place] [id number] PCP - General Family Medicine 11/06/24
== END 2025-04-11 12:04 | disposition home or self-care (01) ==
LOC: HO.HAP 12:03
PROVIDERS: Visit Provider Nurse Practitioner Family
DX: Z46.1 Encounter for fitting and adjustment of hearing aid (principal); H90.6 Mixed conductive and sensorineural hearing loss, bilateral
CPT/HCPCS: 92592; 99499

== ENCOUNTER 2025-04-21 12:02 | Emergency (ER) | payer OTHER, SELFPAY ==
--- NOTE | ~2025-04-21 | CT_ITS ---
EXAMINATION: CT HEAD WITHOUT CONTRAST CLINICAL INFORMATION: Head trauma, fall COMPARISON: April 13, 2023 TECHNIQUE: Contiguous axial imaging was performed from the skull base to vertex without intravenous administration of contrast. This CT examination was performed using dose optimization techniques as appropriate, variously including the following: *Automated exposure control *Adjustment of mA and/or kV according to patient size (this includes techniques or standardized protocols for targeted exams where dose is matched to indication/reason for exam; i.e. extremities or head) *Use of iterative reconstruction technique DLP: 906 mGY*cm FINDINGS: There is beam hardening artifact related to metallic device overlying the left frontal region with leads extending into the left external auditory canal and cochlea. Artifact obscures portions of the left hemisphere in the posterior frontal, proximal, and temporal regions. Chronic white matter hypodensities are primarily in the frontal lobes. There is no acute ischemic change. There is no intracranial hemorrhage. There is no mass-effect or midline shift. Basal cisterns and ventricles are within normal limits for age/cerebral volume. Orbits are symmetrical and unremarkable. Paranasal sinuses and mastoid air cells are pneumatized. There are no bony abnormalities. CT/CT head/brain wo IV con IMPRESSION: No acute intracranial abnormality. Left cochlear electronic device Electronically signed by: Evan Lloyd MD 04/21/2025 04:15 PM EDT
--- NOTE | ~2025-04-21 | CT_ITS ---
EXAMINATION: CT CERVICAL SPINE WITHOUT CONTRAST CLINICAL INFORMATION: Fall, head strike, neck pain. COMPARISON: 04/13/2023. TECHNIQUE: Spiral CT imaging of the cervical spine performed in axial plane without contrast. Multiplanar reformatted images were constructed from the axial data set. This CT examination was performed using dose optimization techniques as appropriate, variously including the following: *Automated exposure control *Adjustment of mA and/or kV according to patient size (this includes techniques or standardized protocols for targeted exams where dose is matched to indication/reason for exam; i.e. extremities or head) *Use of iterative reconstruction technique FINDINGS: CORONAL ALIGNMENT: -Mild left convex scoliosis. SAGITTAL ALIGNMENT: -Straightening of the normal lordosis with a minimal reversal centered at C4. -No traumatic subluxation. C1-C2 AND CRANIOCERVICAL JUNCTION: -Intact and normally aligned. VERTEBRAL BODIES AND FACETS: -No fractures, compression deformities, or suspicious bone lesions. -Facets normally aligned without facet subluxations. Mild degenerative facet changes bilaterally. DISCS: -Moderate to severe disc degeneration C4-5, C5-6, and C6-7. -There is otherwise mild disc degeneration. CENTRAL CANAL: -No evidence of high-grade central canal narrowing or large disc herniation allowing for modality limitations. PREVERTEBRAL AND PARAVERTEBRAL SOFT TISSUES: -There is no prevertebral or paravertebral soft tissue swelling, edema, or abnormal fluid collection. -The thyroid demonstrates a 9 mm right-sided nodule, incompletely imaged. No follow-up recommended given small size. Thyroid otherwise normal. -No mass or lymphadenopathy within the neck. LUNG APICES: -Partially imaged, clear. CT/CT cervical spine wo IV con IMPRESSION: 1. No CT evidence of acute cervical spine fracture or injury. 2. Moderate degenerative spondylosis. Mild levoconvex scoliosis. Electronically signed by: Jared Galan MD 04/21/2025 04:16 PM EDT
[2025-04-21 12:09] VITALS: BP 110/63; PULSE 65; RESP 16; TEMP 36.2; O2SAT 98; BMI 21.7
--- NOTE | 2025-04-21 12:10 | ED_ITS ---
HPI - General Adult General Chief complaint: Fall Stated complaint: fall head pain gash Time Seen by Provider: 04/21/25 16:13 Source: patient Mode of arrival: ambulatory Limitations: no limitations History of Present Illness ED Provider: HPI narrative: Patient's history of Parkinson disease lives alone does have history of frequent falls was in the bathroom and slipped on the meals on the wheel pupil came around same time and saw him on the floor called his son who brought him here patient did not not lose any consciousness has a scalp laceration no other injuries patient has had a CT scan of the head and C-spine prior to my evaluation which was normal Related Data Home Medications ?Medication ?Instructions ?Recorded ?Confirmed quetiapine 25 mg tablet 25 mg PO BEDTIME 12/20/24 Previous Rx's ?Medication ?Instructions ?Recorded fluticasone propionate 50 2 spray intranasal DAILY PRN 12/19/22 mcg/actuation nasal allergy symptoms 30 days #16 grams spray,suspension lisinopril 5 mg tablet 5 mg PO DAILY #90 tabs 04/09 metoprolol succinate 25 mg 25 mg PO DAILY #90 tabs 02/25 tablet,extended release 24 hr tamsulosin 0.4 mg capsule 0.4 mg PO BEDTIME #90 caps 0 06/20/23 finasteride 5 mg tablet 5 mg PO DAILY 90 days #90 ta bs 08/27/23 sennosides 8.6 mg tablet (senna) 17.2 mg (2 x 8.6 mg) PO BEDTIME 09/02/23 constipation 30 days #60 tabs escitalopram oxalate 5 mg tablet 5 mg PO DAILY 90 days #90 tabs 10/01/23 atorvastatin 40 mg tablet 40 mg PO BEDTIME 90 days #90 tabs 11/29/23 carbidopa 25 mg-levodopa 100 mg 1.5 tab PO QID 90 days #540 tabs 02/17/24 tablet melatonin 3 mg capsule 3 mg PO BEDTIME PRN sleep #3 0 caps 02/17/24 Allergies Allergy/AdvReac Type Severity Reaction Status Date / Time No Known Allergies (No Known Allergy Verified 04/21/25 12:13 Allergies*) Review of Systems 2 Review of Systems: Yes all other systems are reviewed and are negative PMFSH Past Medical History Medical History Hallucinations Benign prostate hyperplasia Parkinson's disease without dyskinesia or fluctuating manifestations Erectile dysfunction Impaired fasting glucose Hearing impairment Parkinson's disease Pure hypercholesterolemia Benign essential hypertension Surgical History History of cochlear implant (~01/03/23) History of hernia surgery Family History Family History Father No problems noted. Mother No problems noted. Social History Social History Household Members: None Housing: House Do you presently have visiting nurse or other home services: No Alcohol intake: current Alcohol intake frequency: holidays/special occasions only Alcohol type: beer Comment: occasionally Patient Tobacco Use Status: Former Tobacco user Tobacco use type: Cigarette e-Cigarette/Vaping Use: Never Used Second Hand Smoke Exposure: No Advance Directives: Yes Advance Directives Information Provided: No Advance Directives on File: No Do you have a plan to hurt others: No Plan service: No Current occupational status: retired Cognitive needs: No Hearing needs: Yes (hearing aide) Vision needs: Yes (reading glasses) Physical Exam ED Vital Signs: Vital Signs - 24 hr 04/21/25 12:09 04/21/25 16:43 Temperature 97.1 F 97.7 F Pulse Rate 65 68 Respiratory Rate 16 18 Blood Pressure 110/63 184/72 H Pulse Oximetry 98 97 Oxygen Delivery Method Room Air Room Air BMI result Body Mass Index 21.7 Appearance: Alert. Oriented X2 hard of hearing. No acute distress. Eyes: PERRLA, No Nystagmus ENT: Pharynx normal. Oral Mucosa moist 6 cm long laceration at the occipital area Neck: Normal inspection. Neck supple. CVS: Normal heart rate and rhythm. Pulses normal. Respiratory: No respiratory distress. Equal air entry bilateral, no wheezing/rales/rhonchi Abdomen: Soft and nontender. Bowel sounds are present, no mass palpable, no CVA tenderness Skin: Skin warm and dry. Normal skin color. Normal skin turgor. Extremities: No lower extremity edema. No calf tenderness Neuro: Oriented X 2. No motor deficit. No sensory deficit.No cerebellar signs , cranial nerves II-XII intact Course Course Course Narrative: This is a rapid medical exam performed by Eliazar Schulte NP: Additional HPI, ROS, PE not included below will be deferred to primary provider. Patient is a 74y/o M with reported hx of Parkinson's, Lewy body dementia, recurrent UTIs, HTN presenting with son who states he slipped on a bath mat prior to arrival and fell striking head. Fall was unwitnessed, patient lives alone but denies LOC. Has large laceration, no active bleeding. Unsure last Tdap. Plan: CT head and c-spine, will need lac repair Medications Administered Discontinued Medications Generic Name Dose Route Start Last Admin Trade Name Freq PRN Reason Stop Dose Admin Lidocaine HCl 10 ml 04/21/25 16:27 04/21/25 16:51 Lidocaine Hcl 1 % 20 Ml Vial INFILTRATI 04/21/25 16:28 10 ml ONCE ONE Administration Procedures Laceration Laceration 1: Site: scalp Side (If applicable): right Size (cm): 6 Description: linear Depth: simple, single layer Local Anesthetic: lidocaine 1% Amount of anesthesia used (mL): 7 Size (cm): other (12 myah) Medical Decision Making Lab Data [facility] Lab Attestation statement: I reviewed the patient's lab results. 04/21/25 12:54 04/21/25 12:54 Labs: Lab Results 04/21/25 Range/Units 12:54 WBC 10.7 (4.8-10.8) X10*3/uL RBC 4.19 L (4.60-5.80) X10*6/uL Hgb 13.4 L (14.0-18.0) g/dl Hct 38.9 L (42.0-52.0) % MCV 92.8 (80.0-98.0) fL MCH 32.0 (27.0-33.0) pg MCHC 34.4 (31.0-36.0) g/dl RDW 12.6 (11.0-16.0) % Plt Count 224 (160-400) X10*3/uL MPV 11.5 (9.4-12.4) fL Immature Gran % (Auto) 0.8 H (0.0-0.4) % Neut % (Auto) 80.7 H (45-73) % Lymph % (Auto) 11.7 L (20-40) % [place] % (Auto) 5.7 (2-11) % Eos % (Auto) 0.8 (0-4) % Baso % (Auto) 0.3 (0-2) % Lymph # (Auto) 1.3 (1.2-4.9) X10*3/uL [place] # (Auto) 0.6 (0.1-1.2) X10*3/uL Eos # (Auto) 0.1 (0.0-0.4) X10*3/uL Baso # (Auto) 0.0 (0.0-0.2) X10*3/uL Abs Immat Gran (auto) 0.08 H (0.00-0.03) X10*3/uL Absolute Neuts (auto) 8.6 H (2.0-8.3) x10*3/uL Absolute Nucleated RBC 0.000 (0.0-0.012) X10*3/uL Nucleated RBC % (auto) 0.0 (0.0-0.2) /100WBC PT 12.1 (10.9-12.4) SEC INR 1.1 (0.9-1.1) Sodium 141 (135-145) mmol/L Potassium 4.7 (3.3-5.1) mmol/L Chloride 108 (96-108) mmol/L Carbon Dioxide 28 (22-29) mmol/L Anion Gap 10 L (12-20) BUN 27 H (9-16) mg/dL Creatinine 1.22 (0.5-1.4) mg/dL Estim Creat Clear Calc 44.3 Estimated GFR 58 Random Glucose 102 (60-115) mg/dL Calcium 9.0 (8.4-10.2) mg/dL Total Bilirubin 0.7 (0.0-1.0) mg/dL AST 24 (5-37) U/L ALT 8 (0-40) U/L Alkaline Phosphatase 108 (39-117) U/L Total Protein 7.0 (6.5-8.0) g/dL Albumin 4.2 (3.5-5.0) g/dL Urine Color Dark Yellow Urine Appearance Clear Urine pH 7.0 (5.0-9.0) Ur Specific [place] 1.020 (1.005-1.025) Urine Protein Trace (Neg-Trace) mg/dL Urine Glucose (UA) Negative (Negative) mg/dL Urine Ketones Trace (Negative) mg/dL Urine Blood Negative (Negative) Urine Nitrite Negative (Negative) Ur Leukocyte Esterase Negative (Negative) Independent Interpretation I performed an independent interpretation of an: CT Scan Radiology Impression Discussion of test interpretation with radiology: I have reviewed the radiologist's reading. Discharge Plan Discharge Clinical Impression: Laceration of scalp Patient Disposition: Home, Self-Care Instructions: Laceration (ED) Additional Instructions: Local Care as advised Staple removal in 7-10 days Prescriptions: No Action metoprolol succinate 25 mg tablet extended release 24 hr 25 mg PO DAILY Qty: 90 3RF lisinopril 5 mg tablet 5 mg PO DAILY Qty: 90 3RF tamsulosin 0.4 mg capsule 0.4 mg PO BEDTIME Qty: 90 1RF atorvastatin 40 mg tablet 40 mg PO BEDTIME 90 Days Qty: 90 1RF fluticasone propionate 50 mcg/actuation spray,suspension 2 spray intranasal DAILY PRN (Reason: allergy symptoms) 30 Days Qty: 16 2RF Rx Instructions: administer into each nostril escitalopram oxalate 5 mg tablet 5 mg PO DAILY 90 Days Qty: 90 1RF sennosides [senna] 8.6 mg tablet 17.2 mg PO BEDTIME 30 Days Qty: 60 3RF finasteride 5 mg tablet 5 mg PO DAILY 90 Days Qty: 90 3RF carbidopa-levodopa 25-100 mg tablet 1.5 tab PO QID 90 Days Qty: 540 6RF melatonin 3 mg capsule 3 mg PO BEDTIME PRN (Reason: sleep) Qty: 30 6RF quetiapine 25 mg tablet 25 mg PO BEDTIME Discharge Date/Time: 04/21/25 17:37 Print Language: Egyptian
[2025-04-21 12:58] LABS: MANUAL DIFF FLAG NO
[2025-04-21 13:02] LABS: Appearance Urine Clear; Glucose Urine UA Negative (Negative); PH 7.0 (5.0-9.0); Specific Gravity - Urine 1.020 (1.005-1.025)
[2025-04-21 13:07] LABS: INTERNATIONAL NORM RATIO 1.1 (0.9-1.1); Prothrombin Time 12.1 SEC (10.9-12.4)
[2025-04-21 13:14] LABS: Hematocrit 38.9 % (42.0-52.0); Hemoglobin 13.4 g/dl (14.0-18.0); Imm Gran Abs Auto 0.08 X10*3/uL (0.00-0.03); Imm Gran Pct Auto 0.8 % (0.0-0.4); Lymphocytes Absolute Auto 1.3 X10*3/uL (1.2-4.9); Mean Corpuscular HGB Conc 34.4 g/dl (31.0-36.0); Mean Corpuscular Hemoglobin 32.0 pg (27.0-33.0); Mean Corpuscular Volume 92.8 fL (80.0-98.0); NRBC Abs Auto 0.000 X10*3/uL (0.0-0.012); NRBC Pct Auto 0.0 /100WBC (0.0-0.2); Platelet Count 224 X10*3/uL (160-400); Red Blood Count 4.19 X10*6/uL (4.60-5.80); White Blood Count 10.7 X10*3/uL (4.8-10.8)
[2025-04-21 13:23] LABS: Alanine Aminotransferase 8 U/L (0-40); Albumin Level 4.2 g/dL (3.5-5.0); Alkaline Phosphatase 108 U/L (39-117); Anion Gap 10 (12-20); Aspartate Amino Transferase 24 U/L (5-37); Blood Urea Nitrogen 27 mg/dL (9-16); Calcium 9.0 mg/dL (8.4-10.2); Carbon Dioxide 28 mmol/L (22-29); Chloride 108 mmol/L (96-108); Creatinine Clr Calc Pharmacy 44.3; Estimated Glomerular Filt Rate 58; Potassium 4.7 mmol/L (3.3-5.1); Sodium 141 mmol/L (135-145); Total Protein 7.0 g/dL (6.5-8.0)
--- NOTE | 2025-04-21 14:59 | PC.NURSE ---
Patient has yet to be scanned, called CT, stated patient did not respond to his name. Confirmed patient is still in dept, spoke to patient & son about listening for name, electricity trading analyst should be over to collect patient for scan soon. Son verbalized understanding.
[2025-04-21 16:43] VITALS: BP 184/72; PULSE 68; RESP 18; TEMP 36.5; O2SAT 97
--- NOTE | 2025-04-21 16:48 | MHC.EDTECH ---
Per patient son, patient was on Metoprolol but the his lisinopril 10mg BID
[2025-04-21] MEDS: Lidocaine HCl 1 % 20 ML VIAL 10 ML INFILTRATI (16:51)
== END 2025-04-21 17:37 | disposition home or self-care (01) ==
LOC: HO.ED 16:50
PROVIDERS: Registered Nurse Emergency; Emergency Provider Internal Medicine; PCP Nurse Practitioner Family
DX: S01.01XA Laceration without foreign body of scalp, initial encounter (principal); R51.9 Headache, unspecified; M54.2 Cervicalgia; X58.XXXA Exposure to other specified factors, initial encounter; W19.XXXA Unspecified fall, initial encounter; Y93.9 Activity, unspecified; Y92.009 Unspecified place in unspecified non-institutional (private) residence as the place of occurrence of the external cause; Y99.8 Other external cause status; Z51.81 Encounter for therapeutic drug level monitoring; Z87.891 Personal history of nicotine dependence
CPT/HCPCS: 36415; 70450; 72125; 80053; 81003; 85025; 85610; 99283; 99284; J2003

== ENCOUNTER → 2025-04-21 12:14 | Outpatient (BNV) | payer OTHER, SELFPAY | PROVIDERS: Emergency Provider Internal Medicine; PCP Nurse Practitioner Family; Visit Provider Radiology Diagnostic Radiology | DX: M47.812 Spondylosis without myelopathy or radiculopathy, cervical region (principal); S09.90XA Unspecified injury of head, initial encounter; Z96.21 Cochlear implant status; W19.XXXA Unspecified fall, initial encounter | CPT/HCPCS: 70450; 72125 ==

== ENCOUNTER 2025-05-05 12:17 | Outpatient (AMB) | payer OTHER, SELFPAY ==
[2025-05-05 12:33] VITALS: BP 160/80; PULSE 51; O2SAT 93; BMI 21.3
--- NOTE | 2025-05-05 12:33 | MHC.OFFVIS ---
Vital Signs 05/05/25 12:33 05/05/25 13:13 Height 5 ft 6 in Weight 132 lb BMI 21.3 BP 160/80 H 130/80 Blood Pressure Location Rt brachial Position Sitting Pulse 51 Pulse Source Pulse Oximeter Pulse Oximetry (%) 93 Oxygen Delivery Method Room Air Intake Visit Reasons: follow up Parkinson Patient Account Representative Required: No Accompanied by: Self / Same As Patient Allergies No Known Allergies (No Known Allergies*) Allergy (Verified 05/05/25 12:34) Medication List - Last Reconciled 05/05/25 by Zo Jones MD atorvastatin 40 mg PO BEDTIME 90 days carbidopa-levodopa 25-100 mg 1.5 tabs PO QID 90 days escitalopram oxalate 5 mg PO DAILY 90 days finasteride 5 mg PO DAILY 90 days fluticasone propionate 50 mcg/actuation 2 sprays intranasal DAILY PRN 30 days lisinopril 5 mg PO DAILY lisinopril 5 mg PO BID melatonin 3 mg PO BEDTIME PRN metoprolol succinate ER 25 mg PO DAILY quetiapine 25 mg PO BEDTIME sennosides (senna) 17.2 mg (2 x 8.6 mg) PO BEDTIME 30 days tamsulosin 0.4 mg PO BEDTIME HPI Comments Details: 74y/o Right handed male comes for follow up of parkinsons disease.His tremors are same according to his son but patient says he frequently misses a dose of medication.He is doing OK.He is independent in all his ADLS. He had a fall last week , tripped on a rug in the bedroom. He is on carbidopa/levodopa 25/100 1.5 tabs qid and his dizziness has been better. He started drinking more fluids as well. No hallucinations. He has vivid dreams less than before - he used to have sleep talking. Mood is stable.His sleep is OK - wakes once a night. His son reports 2 episodes of confusion during the evenings - he saw someone in the couch.He was started on quetipaine 25mg in the evening and 1 tab at bedtime . History-He started noticing tremors - rest about 2-3 years ago L>R He was diagnosed with parkinsons disease .He was started on carbidopa/levodopa and it helped.In summer 2022 - he had delirium , diagnosed with UTI.He was admitted at [facility] , he was very confused and was told that he was sundowning. He saw after that and diagnosed with Diffuse Lewy body dementia. He is home now and has been stable since his UTI was treated. Cognition- normal SLeep- he has dream enactment Mood- he takes meds for anxiety SPeech-same Swallowing-normal No drooling Handwriting-good He is able to dress, shower. Gait- good, no falls recently ( during UTI he had a fall) Bowel movements- constipation No double vision Vertigo with change in head positions. Hallucinations-during UTI Sleep- good [facility] Medical History Hallucinations Benign prostate hyperplasia Parkinson's disease without dyskinesia or fluctuating manifestations Erectile dysfunction Impaired fasting glucose Hearing impairment Parkinson's disease Pure hypercholesterolemia Benign essential hypertension Surgical History History of cochlear implant (~01/03/23) History of hernia surgery Family History Father No problems noted. Mother No problems noted. Social History Household Members: None Housing: House Do you presently have visiting nurse or other home services: No Alcohol intake: current Alcohol intake frequency: holidays/special occasions only Alcohol type: beer Comment: occasionally Patient Tobacco Use Status: Former Tobacco user Tobacco use type: Cigarette e-Cigarette/Vaping Use: Never Used Second Hand Smoke Exposure: No service: No Current occupational status: retired Cognitive needs: No Hearing needs: Yes (hearing aide) Vision needs: Yes (reading glasses) Physical Exam Vital Signs: Last Vital Signs Pulse 51 05/05/25 12:33 BP 160/80 H 05/05/25 12:33 Pulse Ox 93 05/05/25 12:33 Oxygen Delivery Method Room Air 05/05/25 12:33 Const General: cooperative, healthy appearing, comfortable and no acute distress Nutritional Appearance: average body habitus Orientation/consciousness: patient oriented x3 Eyes Pupils: Equal, round and reactive pupils present Neuro Other: Mild decreased blink , facial expression Mild dysprosody Alphonso moderate amplitude Rest tremors L>R No action or postural tremors FFM and foot taps mildly decreased mild L>R Gait- mild stoop, slow good stride , decreased arm swings alphonso L>R General: patient oriented x3 and moves all extremities Cranial nerves: Yes Facial sensation intact/muscles of mastication intact, Yes Equal, round and reactive pupils present, No Bilaterally intact EOM present, Yes Nystagmus not present, Yes Normal facial strength present, Yes Midline tongue present and Yes Ability to bilaterally elevate shoulders present Cognition (Neuro): normal cognition Motor exam (neuro): 5/5 motor strength present throughout Coordination: [id number] test normal Assessment & Plan Assessment & Plan (1) Parkinson's disease without dyskinesia or fluctuating manifestations: Comment: Tremor predominant Code(s): G20.A1 - Parkinson's disease without dyskinesia, without mention of fluctuations Category: Medical (2) Hallucinations: Code(s): R44.3 - Hallucinations, unspecified Category: Medical Plan Decrease carbidopa/levodopa 25/100 1.5 tab tid quetiapine 25mg q sherron and qhs Increase fluids - 6 glasses of water or liquid IV I will trial him on rasagiline 1mg qd senna for constipation Increase fluids Increase physical activity Will consider venlafaxine for thermoregulatory issues I suggested buying cooling shirts for night sweats Medications: New rasagiline 1 mg PO DAILY 30 tabs 6RF Coding Level of Care Code Est Pt Level 4 (74385) Complex EM visit Add On G2211 Diagnoses Parkinson's disease without dyskinesia or fluctuating manifestations G20.A1 Hallucinations R44.3
[2025-05-05 13:13] VITALS: BP 130/80
== END 2025-05-05 13:16 | disposition home or self-care (01) ==
LOC: HO.HSMS 12:18
PROVIDERS: Visit Provider Psychiatry & Neurology Neurology
DX: G20.A1 Parkinson's disease without dyskinesia, without mention of fluctuations (principal); R44.3 Hallucinations, unspecified
CPT/HCPCS: 99214; G2211

== ENCOUNTER → 2025-05-05 12:17 | Outpatient (BNVA) | payer OTHER, SELFPAY | PROVIDERS: Visit Provider Psychiatry & Neurology Neurology | DX: G20.A1 Parkinson's disease without dyskinesia, without mention of fluctuations (principal); R44.3 Hallucinations, unspecified | CPT/HCPCS: 99212 ==

== ENCOUNTER 2025-07-14 13:39 | Outpatient (REF) | payer OTHER, SELFPAY ==
[2025-07-14 15:17] LABS: PSA,Total (Free>4and<10) 2.53 ng/mL (0.00-4.00)
== END 2025-07-14 13:40 | disposition home or self-care (01) ==
LOC: HO.LAB 13:39
PROVIDERS: PCP Nurse Practitioner Family; Visit Provider Nurse Practitioner Family
DX: N40.0 Benign prostatic hyperplasia without lower urinary tract symptoms (principal); R97.20 Elevated prostate specific antigen [PSA]; Z12.5 Encounter for screening for malignant neoplasm of prostate
CPT/HCPCS: 36415; 84153

== ENCOUNTER 2025-07-25 12:31 | Outpatient (AMB) | payer OTHER, SELFPAY ==
--- NOTE | 2025-07-25 12:55 | A.OFFVIS_ITS ---
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: No Accompanied by: Son Allergies No Known Allergies (No Known Allergies*) Allergy (Verified 07/25/25 13:34) Medication List - Last Reconciled 07/25/25 by DIONISIO English-BENEDICTO atorvastatin 40 mg PO BEDTIME 90 days carbidopa-levodopa 25-100 mg 1.5 tabs PO QID 90 days escitalopram oxalate 5 mg PO DAILY 90 days finasteride 5 mg PO DAILY 90 days fluticasone propionate 50 mcg/actuation 2 sprays intranasal DAILY PRN 30 days lisinopril 5 mg PO DAILY lisinopril 5 mg PO BID melatonin 3 mg PO BEDTIME PRN metoprolol succinate ER 25 mg PO DAILY quetiapine 25 mg PO BEDTIME rasagiline 1 mg PO DAILY 3 months sennosides (senna) 17.2 mg (2 x 8.6 mg) PO BEDTIME 30 days tamsulosin 0.4 mg PO BEDTIME HPI Comments Details: Vincenzo is a very pleasant 75-year-old [place] male patient of Dr. Avalos who is accompanied by his son Blake at today's office visit. He has a past medical history of erectile dysfunction, hearing impairment, Parkinson's disease, hypercholesteremia, and Lewy bodies dementia. He presents to the office today for follow-up of his elevated PSA, renal cysts, and enlarged prostate. In discussion with the patient today he reports to be doing and feeling well. He discusses his recent hospitalization at [facility] for over a month for issues with his Parkinson's as well as hallucinations. Patient's send discusses recent change in medications have caused low blood pressure. He reports compliance with finasteride and Flomax as prescribed. We did discuss discontinuation of Flomax given patient continues with intermittent episodes of postural hypotension. Recent PSA results reviewed with the patient today as noted and trended below. 08/28 7.2 % free PSA 21%. 12/27 2.7, 04/28 2.5% free PSA 24%, 08/29 2.5, 03/30 4.4, 07/30 2.5 Previous workup has included a retroperitoneal ultrasound 08/28 noting right kidney with no calculi or hydronephrosis. Multiple simple renal cyst the largest mid pole 8 x 7 x 5 mm. Left kidney with no calculi, and or hydronephrosis. Th ere are simple cyst upper pole 7 x 8 x 7 mm and 5 x 5 x 5 mm. The bladder is well distended and normal. Bilateral ureteral jets are demonstrated. Pre void bladder volume is approximately 230 mL. Postvoid bladder volumes proximally 20 mL. Enlarged heterogeneous prostate causing inferior and intentation of the urinary bladder. Prostate volume is approximately 90 mLs. He currently denies any bothersome urinary issues or concerns. He denies urinary urgency, urinary frequency, incontinence, hematuria, dysuria, foul smelling urine, changes to urinary stream, flank pain, fever, and or chills. In office urinalysis results reviewed with the patient today. He otherwise offers no other issues or concerns at this time. [facility] Medical History (Reviewed 07/25/25 @ 13:41 by Chantale Cedillo [facility]) Hallucinations Benign prostate hyperplasia Parkinson's disease without dyskinesia or fluctuating manifestations Erectile dysfunction Impaired fasting glucose Hearing impairment Parkinson's disease Pure hypercholesterolemia Benign essential hypertension Surgical History History of cochlear implant (~01/03/23) History of hernia surgery Family History Father No problems noted. Mother No problems noted. Social History Household Members: None Housing: House Do you presently have visiting nurse or other home services: No Alcohol intake: current Alcohol intake frequency: holidays/special occasions only Alcohol type: beer Comment: occasionally Patient Tobacco Use Status: Former Tobacco user Tobacco use type: Cigarette e-Cigarette/Vaping Use: Never Used Second Hand Smoke Exposure: No service: No Current occupational status: retired Cognitive needs: No Hearing needs: Yes (hearing aide) Vision needs: Yes (reading glasses) Review of Systems Const Reports as per HPI Eyes Reports no additional complaints ENT Reports as per HPI Card Reports as per HPI Resp Reports no additional complaints GI Reports no additional complaints Reports as per HPI Musc Reports as per HPI Neuro Reports as per HPI Psych Reports no additional complaints Endo Reports no additional complaints Zheng/Lymph Reports no additional complaints Aller/Immun Reports no additional complaints Physical Exam Const General: cooperative, healthy appearing, comfortable, no acute distress, well developed, alert and awake Nutritional Appearance: thin Orientation/consciousness: oriented to person Limitations: no limitations HEENT Head: Yes normal to inspection, Yes normocephalic and Yes atraumatic Ears: hearing grossly normal bilaterally Eyes General: appearance normal, both eyes and all related structures Neck Neck: Yes normal visual inspection and Yes trachea midline Chest Chest palpation & inspection: normal inspection of the chest Resp Effort & Inspection: normal respiratory effort and able to speak in complete sentences Cardio Rate: regular rate GI Inspection: Yes normal to inspection General: Yes no CVA tenderness Back/Spine/Pelvis Back: no CVA tenderness Skin General skin exam: no rashes or lesions noted Neuro Other: tremors noted bilaterally General: oriented to person Extrem General: Yes normal to inspection Psych Appearance: grossly normal and well kempt Mental Status: mental status grossly normal Speech and movement: Normal speech and movement present and Clear speech present Affect: normal affect Attitude: cooperative Thought process: Normal thought process present Thought content: Normal thought content present Insight: Fair insight present (Psych) Judgement: Fair judgement present (Psych) Results AMB Urinalysis, Automated UA Leukoctes 0 Fariba/uL Last Edit by ANATOLY Hernandez on 07/25/25 13:07 UA Nitrite Negative Last Edit by ANATOLY Hernandez on 07/25/25 13:07 UA Urobilinogen 0.2 mg/dL Last Edit by ANATOLY Hernandez on 07/25/25 13:0 7 UA Protein 15 mg/dL Last Edit by ANATOLY Hernandez on 07/25/25 13:07 UA pH 6.0 Last Edit by ANATOLY Hernandez on 07/25/25 13:07 UA Blood 0 Juan/uL Last Edit by ANATOLY Hernandez on 07/25/25 13:07 UA Specific [place] 1.020 Last Edit by ANATOLY Hernandez on 07/25/25 13: 07 UA Ketone Negative Last Edit by ANATOLY Hernandez on 07/25/25 13:07 UA Bilirubin 0 mg/dL Last Edit by ANATOLY Hernandez on 07/25/25 13:07 UA Glucose 0 mg/dL Last Edit by ANATOLY Hernandez on 07/25/25 13:07 Results Reviewed Results Reviewed: Laboratory Last Values Urine pH (Auto) 6.0 07/25/25 13:06 Specific [place] (Auto) 1.020 07/25/25 13:06 Urine Protein (Auto) 15 mg/dL 07/25/25 13:06 Glucose (UA)(Auto) 0 mg/dL 07/25/25 13:06 Urine Ketones (Auto) Negative 07/25/25 13:06 Urine Blood (Auto) 0 Juan/uL 07/25/25 13:06 Urine Nitrite (Auto) Negative 07/25/25 13:06 Urine Bilirubin (Auto) 0 mg/dL 07/25/25 13:06 Urine Urobilinogen (Auto) 0.2 mg/dL 07/25/25 13:06 Leukocyte Esterase (Auto) 0 Fariba/uL 07/25/25 13:06 Assessment & Plan Assessment & Plan (1) Increased urinary frequency: Code(s): R35.0 - Frequency of micturition Category: Medical (2) Urinary urgency: Code(s): R39.15 - Urgency of urination Category: Medical (3) Nocturia: Code(s): R35.1 - Nocturia Category: Medical (4) Recurrent urinary tract infection: Code(s): N39.0 - Urinary tract infection, site not specified Category: Medical (5) Elevated PSA: Code(s): R97.20 - Elevated prostate specific antigen [PSA] Category: Medical (6) Enlarged prostate: Code(s): N40.0 - Benign prostatic hyperplasia without lower urinary tract symptoms Category: Medical Plan In office urinalysis results reviewed with the patient today; as noted above. Recent PSA results reviewed with the patient today; as noted above. He currently denies any bothersome urinary issues or concerns. He reports be happy with current voiding parameters. Stop tamsulosin. Continue finasteride as discussed and prescribed. Will continue with surveillance monitoring. Follow-up in 3 months with [facility]; or sooner with any issues, concerns, and or questions. Orders: Orders AMB Urinalysis Automated Today Z13.9 - Encounter for screening, unspecified Patient Instructions: The patient had an opportunity to ask questions regarding the treatment plan. All questions were answered. Physical exam, labs, and imaging were discussed and reviewed in detail. As well as risks, benefits, and discussion of treatment choices. No major barriers to understanding were identified. The patient expressed understanding and agreement with the above treatment plan. The patient was made aware they should contact our office by phone for worsening of their current condition, the appearance of new symptoms, or with any questions or concerns. Compliance is encouraged with any medications and follow up testing that is ordered. It is a privilege to be allowed the opportunity to participate in? your urological care.? Again, if you have any questions or concerns If you have any questions or concerns please do not hesitate to contact me. The office is [phone]. This note is constructed using voice recognition software. While every effort has been made to ensure accuracy equipment lead errors may have been included. Yours sincerely, MALIK English Coding Level of Care Code Est Pt Level 3 (42367) Complex EM visit Add On G2211 Diagnoses Increased urinary frequency R35.0 Urinary urgency R39.15 Nocturia R35.1 Recurrent urinary tract infection N39.0 Elevated PSA R97.20 Enlarged prostate N40.0
== END 2025-07-25 13:36 | disposition home or self-care (01) ==
LOC: HO.HUSH 12:32
PROVIDERS: PCP Internal Medicine; Visit Provider Nurse Practitioner Family
DX: R35.0 Frequency of micturition (principal); R39.15 Urgency of urination; R35.1 Nocturia; N39.0 Urinary tract infection, site not specified; R97.20 Elevated prostate specific antigen [PSA]; N40.0 Benign prostatic hyperplasia without lower urinary tract symptoms; Z13.9 Encounter for screening, unspecified
CPT/HCPCS: 99213; G2211

== ENCOUNTER → 2025-07-25 12:31 | Outpatient (BNVA) | payer OTHER, SELFPAY | PROVIDERS: PCP Internal Medicine; Visit Provider Nurse Practitioner Family | DX: R97.20 Elevated prostate specific antigen [PSA] (principal); N40.0 Benign prostatic hyperplasia without lower urinary tract symptoms; R35.1 Nocturia; R35.0 Frequency of micturition; R39.15 Urgency of urination; N39.0 Urinary tract infection, site not specified; Z13.9 Encounter for screening, unspecified | CPT/HCPCS: 81003; 99212 ==

== ENCOUNTER 2025-08-23 13:31 | Outpatient (AMB) | payer OTHER, SELFPAY ==
--- OUTSIDE RECORDS SUMMARY | 2025-08-22 08:00 | XMS_ITS | Encounter Summary ---
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 Name Role Phone Reyna Zuniga NP Primary Care Provider [phone] Encounter Details Date Type Department Care Team (Late st Contact Info) Description 08/22/2025 8:00 AM EST PACE Home Care / [facility] [address] [place] [phone] Melissa Raza Social History Tobacco Use Types Packs/Day Years Used Date Smoking Tobacco: Former Cigarettes Smokeless Tobacco: Never Comments:Ex-smoker Sex and Gender Information Value Date Recorded Sex Assigned at Not on file Legal Sex Male 9:32 AM EST Gender Identity Not on file Sexual Orientation Not on file documented as of this encounter Plan of Treatment Upcoming Encounters Date Type Department Care Team (Late st Contact Info) Description 08/24/2025 8:00 AM EST PACE Home Care / [facility] [address] [place] [phone] Melissa Raza 08/24/2025 12:30 PM EST PACE Home Care / [facility] [address] [place] [phone] Melissa Raza 08/24/2025 1:00 PM EST [facility] Visit [facility] [address] [place] [address] Ilsa Frias MD [address] [address] 08/24/2025 5:30 PM EST PACE Home Care / [facility] [address] [place] [address] Daksha Yates 08/25/2025 7:00 AM EST PACE Home Care / [facility] Visit [facility] [address] [place] [address] Tiana Sibley 08/25/2025 12:30 PM EST PACE Home Care / [facility] Visit [facility] [address] [place] [address] Daksha Yates 08/25/2025 5:30 PM EST PACE Home Care / [facility] [address] [place] [address] Daksha Yates 08/26/2025 8:30 AM EST PACE Home Care / [facility] [address] [place] [address] Tiana Sibley 08/26/2025 12:00 PM EST PACE Home Care / [facility] [address] [place] [address] Jesse Alfred 08/26/2025 5:30 PM EST PACE Home Care / [facility] [address] [place] [address] Tiana Sibley 08/27/2025 8:00 AM EST PACE Home Care / [facility] [address] [place] [address] Daksha Yates 08/27/2025 1:00 PM EST PACE Home Care / [facility] [address] [place] [address] Tiana Sibley 08/27/2025 5:00 PM EST PACE Home Care / [facility] [address] [place] [address] [facility] 08/28/[facility]25 8:00 AM EST PACE Home Care / [facility] [address] [place] [phone] Daksha Yates 08/28/2025 12:30 PM EST PACE Home Care / [facility] [address] [place] [phone] Jesse Alfred 08/28/2025 4:30 PM EST PACE Home Care / [facility] [address] [place] [phone] Daksha Yates 08/29/2025 8:00 AM EST PACE Home Care / [facility] [address] [place] [phone] Melissa Raza 08/29/2025 12:30 PM EST PACE Home Care / [facility] [address] [place] [phone] Melissa Raza 08/29/2025 5:30 PM EST PACE Home Care / [facility] [address] [place] [phone] Daksha Yates 08/30/2025 8:00 AM EST PACE Home Care / [facility] [address] [place] [address] Tiana Sibley 08/30/2025 12:30 PM EST PACE Home Care / P[facility] Home Visit [facility] [address] [place] [address] Lata Ford 08/30/2025 5:30 PM EST PACE Home Care / P[facility] Home Visit [facility] [address] [place] [address] Daksha Yates 08/31/2025 8:30 AM EST PACE Home Care / P[facility] Home Visit [facility] [address] [place] [address] Melissa Raza 08/31/2025 12:30 PM EST PACE Home Care / P[facility] Home Visit [facility] [address] [place] [address] Melissa Raza 08/31/2025 5:00 PM EST PACE Home Care / P[facility] Home Visit [facility] [address] [place] [phone] Daksha Yates 09/01/2025 8:30 AM EST PACE Home Care / [facility] Home Visit [facility] [address] [place] [phone] Tiana Sibley 09/01/2025 12:30 PM EST PACE Home Care / P[facility] Home Visit [facility] [address] [place] [phone] Daksha Yates 09/01/2025 5:30 PM EST PACE Home Care / [facility] [address] [place] [phone] Daksha Yates 09/02/2025 8:30 AM EST PACE Home Care / [facility] [address] [place] [address] Tiana Sibley 09/02/2025 1:30 PM EST PACE Home Care / [facility] [address] [place] [address] Tiana Sibley 09/02/2025 4:00 PM EST PACE Home Care / P[facility] Visit [facility] [address] [place] [address] Tiana Sibley 09/03/2025 8:30 AM EST PACE Home Care / [facility] Home Visit [facility] [address] [place] [phone] Tiana Sibley 09/03/2025 12:30 PM EST PACE Home Care / P[facility] Home Visit [facility] [address] [place] [phone] Tiana Sibley 09/03/2025 5:30 PM EST PACE Home Care / [facility] [address] [place] [phone] Tiana Sibley 09/04/2025 8:00 AM EST PACE Home Care / [facility] [address] [place] [phone] DansDaksha harris 09/04/2025 12:30 PM EST PACE Home Care / [facility] [address] [place] [phone] DansDaksha harris 09/04/2025 5:30 PM EST PACE Home Care / [facility] [address] [place] [phone] DansDaksha harris 09/05/2025 8:00 AM EST PACE Home Care / [facility] [address] [place] [address] Melissa Raza 09/05/2025 12:30 PM EST PACE Home Care / [facility] [address] [place] [address] eMlissa Raza 09/05/2025 5:30 PM EST PACE Home Care / [facility] [address] [place] [address] Daksha Yates 09/06/2025 8:00 AM EST PACE Home Care / [facility] [address] [place] [address] Tiana Sibley 09/06/2025 12:30 PM EST PACE Home Care / [facility] [address] [place] [phone] Lata Ford 09/06/2025 5:30 PM EST PACE Home Care / [facility] [address] [place] [phone] Daksha Yates 09/07/2025 8:00 AM EST PACE Home Care / [facility] [address] [place] [phone] Melissa Raza 09/07/2025 12:30 PM EST PACE Home Care / [facility] [address] [place] [phone] Melissa Raza 09/07/2025 5:30 PM EST PACE Home Care / [facility] [address] [place] [phone] Daksha Yates 09/08/2025 8:00 AM EST PACE Home Care / [facility] [address] [place] [address] Tiana Sibley 09/08/2025 12:30 PM EST PACE Home Care / [facility] [address] [place] [address] Daksha Yaets 09/08/2025 5:30 PM EST PACE Home Care / [facility] [address] [place] [address] Daksha Yates 09/09/2025 8:30 AM EST PACE Home Care / [facility] [address] [place] [phone] Tiana Sibley 09/09/2025 12:30 PM EST PACE Home Care / [facility] [address] [place] [address] Daksha Yates 09/09/2025 5:30 PM EST PACE Home Care / [facility] [address] [place] [phone] Tiana Sibley 09/10/2025 8:30 AM EST PACE Home Care / [facility] [address] [place] [address] Tiana Sibley 09/10/2025 12:30 PM EST PACE Home Care / [facility] [address] [place] [address] Tiana Sibley 09/10/2025 5:00 PM EST PACE Home Care / [facility] [address] [place] [phone] Tiana Sibley 09/11/2025 8:30 AM EST PACE Home Care / [facility] [address] [place] [address] Brigida Hendricks 09/11/2025 12:30 PM EST PACE Home Care / [facility] [address] [place] [address] Brigida Hendricks 09/11/2025 5:30 PM EST PACE Home Care / [facility] [address] [place] [address] Brigida Hendricks 09/12/2025 8:00 AM EST PACE Home Care / [facility] [address] [place] [phone] Melissa Raza 09/12/2025 12:30 PM EST PACE Home Care / [facility] [address] [place] [phone] Melissa Raza 09/12/2025 5:30 PM EST PACE Home Care / [facility] [address] [place] [phone] Daksha Yates 09/13/2025 8:00 AM EST PACE Home Care / [facility] [address] [place] [address] Tiana Sibley 09/13/2025 12:30 PM EST PACE Home Care / [facility] [address] [place] [address] Lata Ford 09/13/2025 5:30 PM EST PACE Home Care / [facility] [address] [place] [phone] Daksha Yates 09/14/2025 8:00 AM EST PACE Home Care / [facility] [address] [place] [address] Melissa Raza 09/14/2025 12:30 PM EST PACE Home Care / [facility] [address] [place] [address] Melissa Raza 09/14/2025 5:30 PM EST PACE Home Care / [facility] [address] [place] [address] Daksha Yates 09/15/2025 8:00 AM EST PACE Home Care / [facility] [address] [place] [address] Tiana Sibley 09/15/2025 12:30 PM EST PACE Home Care / [facility] [address] [place] [phone] [facility] 09/15/2025 5:30 PM EST PACE Home Care / [facility] [address] [place] [phone] [facility] 09/16/2025 8:30 AM EST PACE Home [facility] / [facility] [address] [place] [address] Tiana Sibley 09/16/2025 12:30 PM EST PACE Home Care / [facility] [address] [place] [phone] Daksha Yates 09/16/2025 5:30 PM EST PACE Home Care / [facility] [address] [place] [address] Tiana Sibley 09/17/2025 8:30 AM EST PACE Home Care / [facility] [address] [place] [address] Tiana Sibley 09/17/2025 12:30 PM EST PACE Home Care / [facility] [address] [place] [address] Tiana Sibley 09/17/2025 5:30 PM EST PACE Home Care / [facility] [address] [place] [address] Tiana Sibley 09/18/2025 8:00 AM EST PACE Home Care / [facility] [address] [place] [address] Daksha Yates 09/18/2025 12:30 PM EST PACE Home Care / [facility] [address] [place] [address] Daksha Yates 09/18/2025 5:30 PM EST PACE Home Care / [facility] [address] [place] [address] Daksha Yates 09/19/2025 8:00 AM EST PACE Home Care / [facility] [address] [place] [address] Melissa Raza 09/19/2025 12:30 PM EST PACE Home Care / [facility] [address] [place] [address] Melissa Raza 09/19/2025 5:30 PM EST PACE Home Care / [facility] [address] [place] [address] Daksha Yates 09/20/2025 8:00 AM EST PACE Home [facility] / [facility] [address] [place] [address] Tiana Sibley 09/20/2025 12:30 PM EST PACE Home [facility] / [facility] [address] [place] [address] Lata Ford 09/20/2025 5:30 PM EST PACE Home Care / [facility] [address] [place] [phone] Daksha Yates 09/21/2025 8:00 AM EST PACE Home Care / [facility] [address] [place] [phone] Melissa Raza 09/21/2025 12:30 PM EST PACE Home Care / [facility] [address] [place] [phone] Melissa Raza 09/21/2025 5:30 PM EST PACE Home [facility] / [facility] [address] [place] [phone] Daksha Yates 09/22/2025 8:00 AM EST PACE Home [facility] / [facility] [address] [place] [phone] Tiana Sibley 09/22/2025 12:30 PM EST PACE Home [facility] / [facility] [address] [place] [phone] Daksha Yates 09/22/2025 5:30 PM EST PACE Home [facility] / [facility] [address] [place] [address] Daksha Yates 09/23/2025 8:30 AM EST PACE Home [facility] / [facility] [address] [place] [address] Tiana Sibley 09/23/2025 12:30 PM EST PACE Home Care / [facility] [address] [place] [phone] Daksha Yates 09/23/2025 5:30 PM EST PACE Home Care / [facility] [address] [place] [phone] Tiana Sibley 09/24/2025 8:30 AM EST PACE Home Care / [facility] [address] [place] [address] Tiana Sibley 09/24/2025 12:30 PM EST PACE Home Care / [facility] [address] [place] [phone] Tiana Sibley 09/24/2025 5:00 PM EST PACE Home Care / [facility] [address] [place] [phone] Tiana Sibley 09/25/2025 8:30 AM EST PACE Home [facility] / [facility] [address] [place] [phone] Brigida Hendricks 09/25/2025 12:30 PM EST P[facility] Home [facility] / [facility] [address] [place] [phone] Brigida Hendricks 09/25/2025 5:30 PM EST PACE Home [facility] / [facility] [address] [place] [address] Brigida Hendricks 09/26/2025 8:00 AM EST PACE Home [facility] / [facility] [address] [place] [address] Melissa Raza 09/26/2025 12:30 PM EST PACE Home [facility] / [facility] [address] [place] [address] Melissa Raza 09/26/2025 5:30 PM EST PACE Home [facility] / [facility] [address] [place] [phone] Daksha Yates 09/27/2025 8:00 AM EST PACE Home [facility] / [facility] [address] [place] [phone] Tiana Sibley 09/27/2025 12:30 PM EST PACE Home [facility] / [facility] [address] [place] [phone] Lata Ford 09/27/2025 5:30 PM EST PACE Home [facility] / [facility] [address] [place] [phone] Daksha Yates 09/28/2025 8:00 AM EST PACE Home [facility] / [facility] [address] [place] [phone] Melissa Raza 09/28/2025 12:30 PM EST PACE Home [facility] / [facility] [address] [place] [phone] Melissa Raza 09/28/2025 5:30 PM EST PACE Home [facility] / [facility] [address] [place] [address] Daksha Yates 09/29/2025 8:00 AM EST P[facility] Home [facility] / [facility] [address] [place] [address] Tiana Sibley 09/29/2025 12:30 PM EST PACE Home [facility] / [facility] [address] [place] [address] Daksha Yates 09/29/2025 5:30 PM EST PACE Home Care / [facility] [address] [place] [address] Daksha Yates 09/30/2025 8:30 AM EST P[facility] Home [facility] / [facility] [address] [place] [address] Tiana Sibley 09/30/2025 12:30 PM EST PACE Home [facility] / [facility] [address] [place] [phone] Daksha Yates 09/30/2025 5:30 PM EST PACE Home [facility] / [facility] [address] [place] [address] Tiana Sibley 10/01/2025 8:30 AM EST PACE Home [facility] / [facility] [address] [place] [phone] Tiana Sibley 10/01/2025 12:30 PM EST P[facility] Home [facility] / [facility] [address] [place] [address] Tiana Sibley 10/01/2025 5:30 PM EST PACE Home [facility] / [facility] [address] [place] [address] Tiana Sibley 10/02/2025 8:00 AM EST PACE Home Care / [facility] [address] [place] [address] Daksha Yates 10/02/2025 12:30 PM EST PACE Home [facility] / [facility] [address] [place] [phone] Daksha Yates 10/02/2025 5:30 PM EST PACE Home [facility] / [facility] [address] [place] [phone] Daksha Yates 10/03/2025 8:00 AM EST PACE Home [facility] / [facility] [address] [place] [phone] Melissa Raza 10/03/2025 12:30 PM EST PACE Home [facility] / [facility] [address] [place] [phone] Melissa Raza 10/03/2025 5:30 PM EST PACE Home [facility] / [facility] [address] [place] [phone] Daksha Yates 10/04/2025 8:00 AM EST PACE Home [facility] / [facility] [address] [place] [phone] Tiana Sibley 10/04/2025 12:30 PM EST PACE Home [facility] / [facility] [address] [place] [phone] Lata Ford 10/04/2025 5:30 PM EST PACE Home Care / [facility] [address] [place] [address] Daksha Yates 10/05/2025 8:00 AM EST PACE Home Care / [facility] [address] [place] [address] Melissa Raza 10/05/2025 12:30 PM EST PACE Home [facility] / [facility] [address] [place] [address] Melissa Raza 10/05/2025 5:30 PM EST PACE Home [facility] / [facility] [address] [place] [phone] Daksha Yates 10/06/2025 8:00 AM EST PACE Home [facility] / [facility] [address] [place] [phone] Tiana Sibley 10/06/2025 12:30 PM EST PACE Home [facility] / [facility] [address] [place] [phone] [facility] 10/06/2025 5:30 PM EST PACE Home [facility] / [facility] [address] [place] [phone] [facility] 10/07/2025 8:30 AM EST PACE Home [facility] / [facility] [address] [place] [phone] Tiana Sibley 10/07/2025 12:30 PM EST PACE Home [facility] / [facility] [address] [place] [phone] MeliadanielShilpichristian 10/07/2025 5:30 PM EST PACE Home [facility] / [facility] [address] [place] [address] Tiana Sibley 10/08/2025 8:30 AM EST PACE Home [facility] / [facility] [address] [place] [phone] Tiana Sibley 10/08/2025 12:30 PM EST PACE Home [facility] / [facility] [address] [place] [phone] Tiana Sibley 10/08/2025 5:00 PM EST PACE Home [facility] / [facility] [address] [place] [phone] Tiana Sibley 10/09/2025 8:30 AM EST PACE Home [facility] / [facility] [address] [place] [phone] Brigida Hendricks 10/09/2025 12:30 PM EST PACE Home [facility] / [facility] [address] [place] [phone] Brigida Hendricks 10/09/2025 5:30 PM EST PACE Home Care / [facility] [address] [place] [phone] Brigida Hendricks 10/10/2025 8:00 AM EST PACE Home [facility] / [facility] [address] [place] [phone] Melissa Raza 10/10/2025 12:30 PM EST PACE Home [facility] / [facility] [address] [place] [address] [place] [address] Melissa Raza 10/10/2025 5:30 PM EST PACE Home [facility] / [facility] [address] [place] [address] Daksha Yates 10/11/2025 8:00 AM EST PACE Home [facility] / [facility] [address] [place] [address] Tiana Sibley 10/11/2025 12:30 PM EST PACE Home Care / [facility] [address] [place] [address] Lata Ford 10/11/2025 5:30 PM EST PACE Home Care / [facility] [address] [place] [address] Daksha Yates 10/12/2025 8:00 AM EST PACE Home [facility] / [facility] [address] [place] [address] Melissa Raza 10/12/2025 12:30 PM EST PACE Home Care / [facility] Visit [facility] [facility] [address] [place] [phone] Melissa Raza 10/12/2025 5:30 PM EST [facility] [address] [place] [phone] Daksha Yates 10/13/2025 8:00 AM EST [facility] / [facility] [address] [place] [phone] Tiana Sibley 10/13/2025 12:30 PM EST [facility] / [facility] [address] [place] [address] Daksha Yates 10/13/2025 5:30 PM EST [facility] / [facility] [address] [place] [phone] Daksha Yates 10/14/2025 8:30 AM EST [facility] / [facility] [address] [place] [phone] Tiana Sibley 10/14/2025 12:30 PM EST [facility] / [facility] [address] [place] [phone] Daksha Yates 10/14/2025 5:30 PM EST [facility] / [facility] [address] [place] [phone] Tiana Sibley 10/15/2025 8:30 AM EST [facility] / [facility] [address] [place] [phone] Tiana Sibley 10/15/2025 12:30 PM EST [facility] / [facility] [address] [place] [phone] Tiana Sibley 10/15/2025 5:30 PM EST [facility] [address] [place] [phone] Tiana Sibley 10/16/2025 8:00 AM EST [facility] [address] [place] [phone] Daksha Yates 10/16/2025 12:30 PM EST [facility] [address] [place] [phone] Daksha Yates 10/16/2025 5:30 PM EST [facility] / [facility] [address] [place] [phone] Daksha Yates 10/17/2025 8:00 AM EST [facility] / [facility] [address] [place] [phone] Melissa Raza 10/17/2025 12:30 PM EST [facility] [address] [place] [phone] Melissa Raza 10/17/2025 5:30 PM EST [facility] [address] [place] [phone] Daksha Yates 10/18/2025 8:00 AM EST [facility] [address] [place] [phone] Tiana Sibley 10/18/2025 12:30 PM EST [facility] / [facility] [address] [place] [phone] Lata Ford 10/18/2025 5:30 PM EST [facility] / [facility] [address] [place] [phone] Daksha Yates 10/19/2025 8:00 AM EST [facility] / [facility] [address] [place] [phone] Melissa Raza 10/19/2025 12:30 PM EST [facility] [address] [place] [address] Melissa Raza 10/19/2025 5:30 PM EST [facility] [place] [facility] [address] [place] [phone] Daksha Yates 10/20/2025 8:00 AM EST [facility] [place] [facility] [address] [place] [phone] Tiana Sibley 10/20/2025 12:30 PM EST [facility] / [facility] [address] [place] [phone] Daksha Yates 10/20/2025 5:30 PM EST [facility] / [facility] [address] [place] [phone] Daksha Yates 10/21/2025 8:30 AM EST [facility] [address] [place] [phone] Tiana Sibley 10/21/2025 12:30 PM EST [facility] [address] [place] [phone] Daksha Yates 10/21/2025 5:30 PM EST [facility] [address] [place] [phone] Tiana Sibley 10/22/2025 8:30 AM EST [facility] [place] [facility] [address] [place] [phone] Tiana Sibley 10/22/2025 12:30 PM EST [facility] / [facility] [place] [facility] [address] [place] [phone] Tiana Sibley 10/22/2025 5:00 PM EST [facility] / [facility] [place] [facility] [address] [place] [phone] Tiana Sibley 10/23/2025 8:30 AM EST [facility] [address] [place] [phone] Brigida Hendricks 10/23/2025 12:30 PM EST [facility] [address] [place] [phone] Brigida Hendricks 10/23/2025 5:30 PM EST [facility] [address] [place] [phone] Brigida Hendricks documented as of this encounter Visit Diagnoses Not on filedocumented in this encounter Additional Health Concerns Assessment Noted Time PHQ-9 Depression Total Score: 3 03/25/20 11:12 AM EDT documented as of this encounter Care Teams [employer] Relationship Specialty Start Date End Date Reyna Zuniga NP [address] [place] [phone] PCP - General Family Medicine 11/06/24 documented as of this encounter
--- OUTSIDE RECORDS SUMMARY | 2025-08-22 12:30 | XMS_ITS | Encounter Summary ---
Author Organization [facility] Address [address] [place] [address] Care Team Providers Care Gta Name Role Phone Reyna Zuniga NP Primary Care Provider [phone] Encounter Details Date Type Department Care Team (Late st Contact Info) Description 08/22/2025 12:30 PM EST P[facility] Home Care / [facility] Home Visit [facility] [address] [place] [phone] Melissa Raza Social History Tobacco Use Types [...] [place] [facility] [address] [place] [phone] Melissa Raza 08/24/2025 12:30 PM EST P[facility] Home Care / [facility] [address] [place] [phone] Melissa Raza 08/24/2025 1:00 PM EST Office Visit [facility] [address] [place] [address] Ilsa Frias MD [address] [address] 08/24/2025 5:30 PM EST PACE Home Care / [facility] [address] [place] [address] Daksha Yates 08/25/2025 7:00 AM EST PACE Home Care / [facility] Visit [facility] [address] [place] [address] Tiana Sibley 08/25/2025 12:30 PM EST PACE Home Care / [facility] Visit [facility] [place] [facility] [address] [place] [address] Daksha Yates 08/25/2025 5:30 PM EST PACE Home Care / [facility] Visit [facility] [address] [place] [address] Daksha Yates 08/26/2025 8:30 AM EST PACE Home Care / [facility] [address] [place] [address] Tiana Sibley 08/26/2025 12:00 PM EST PACE Home Care / [facility] [address] [place] [address] Jesse Alfred 08/26/2025 5:30 PM EST PACE Home Care / [facility] [address] [place] [address] Tiana Sibley 08/27/2025 8:00 AM EST [facility] Home [facility] / [facility] [address] [place] [address] Daksha Yates 08/27/2025 1:00 PM EST P[facility] Home Care / [facility] [address] [place] [address] Tiana Sibley 08/27/2025 5:00 PM EST P[facility] Home Care / [facility] [place] [facility] [address] [place] [address] [facility] 08/28/2025 8:00 AM EST P[facility] Home [facility] / [facility] [address] [place] [phone] Daksha Yates 08/28/2025 12:30 PM EST P[facility] Home Care / [facility] [address] [place] [phone] Jesse Alfred 08/28/2025 4:30 PM EST P[facility] Home Care / [facility] [address] [place] [phone] Daksha Yates 08/29/2025 8:00 AM EST P[facility] Home Care / [facility] [address] [place] [phone] Melissa Raza 08/29/2025 12:30 PM EST P[facility] Home [facility] / [facility] [address] [place] [phone] Melissa Raza 08/29/2025 5:30 PM EST P[facility] Home Care / [facility] [address] [place] [phone] Daksha Yates 08/30/2025 8:00 AM EST PACE Home Care / [facility] [address] [place] [address] Tiana Sibley 08/30/2025 12:30 PM EST PACE Home Care / PACE Home Visit [facility] [address] [place] [address] Lata Ford 08/30/2025 5:30 PM EST PACE Home Care / PACE Home Visit [facility] [address] [place] [address] Daksha Yates 08/31/2025 8:30 AM EST PACE Home Care / PACE Home Visit [facility] [address] [place] [address] Melissa Raza 08/31/2025 12:30 PM EST PACE Home Care / PACE Home Visit [facility] [address] [place] [address] Melissa Raza 08/31/2025 5:00 PM EST PACE Home Care / P[facility] Home Visit [facility] [address] [place] [phone] Daksha Yates 09/01/2025 8:30 AM EST PACE Home Care / [facility] Home Visit [facility] [address] [place] [phone] Tiana Sibley 09/01/2025 12:30 PM EST PACE Home Care / P[facility] Home Visit [facility] [address] [place] [phone] Daksha Yates 09/01/2025 5:30 PM EST PACE Home Care / [facility] [address] [place] [phone] Daksha Yates 09/02/2025 8:30 AM EST [facility] Home [facility] / [facility] [address] [place] [address] Tiana Sibley 09/02/2025 1:30 PM EST PACE Home Care / [facility] [address] [place] [address] Tiana Sibley 09/02/2025 4:00 PM EST PACE Home Care / PACE Home Visit [facility] [address] [place] [address] Tiana Sibley 09/03/2025 8:30 AM EST PACE Home Care / PACE Home Visit [facility] [address] [place] [phone] Tiana Sibley 09/03/2025 12:30 PM EST PACE Home Care / PACE Home Visit [facility] [address] [place] [phone] Tiana Sibley 09/03/2025 5:30 PM EST P[facility] Home Care / [facility] [address] [place] [phone] Tiana Sibley 09/04/2025 8:00 AM EST PACE Home Care / [facility] [address] [place] [phone] DansDaksha harris 09/04/2025 12:30 PM EST P[facility] Home [facility] / [facility] [address] [place] [phone] DansDaksha harris 09/04/2025 5:30 PM EST [facility] Home [facility] / [facility] [address] [place] [phone] DansDaksha harris 09/05/2025 8:00 AM EST P[facility] Home [facility] / [facility] [address] [place] [address] Melissa Raza 09/05/2025 12:30 PM EST [facility] Home [facility] / [facility] [address] [place] [address] Melissa Raza 09/05/2025 5:30 PM EST P[facility] Home [facility] / [facility] [address] [place] [address] Daksha Yates 09/06/2025 8:00 AM EST P[facility] Home [facility] / [facility] [address] [place] [address] Tiana Sibley 09/06/2025 12:30 PM EST P[facility] Home [facility] / [facility] [address] [place] [phone] Lata Ford 09/06/2025 5:30 PM EST P[facility] Home [facility] / [facility] [address] [place] [phone] Daksha Yates 09/07/2025 8:00 AM EST [facility] Home [facility] / [facility] [address] [place] [phone] Melissa Raza 09/07/2025 12:30 PM EST P[facility] Home [facility] / [facility] [address] [place] [phone] Melissa Raza 09/07/2025 5:30 PM EST P[facility] Home [facility] / [facility] [address] [place] [phone] Daksha Yates 09/08/2025 8:00 AM EST P[facility] Home [facility] / [facility] [address] [place] [address] Tiana Sibley 09/08/2025 12:30 PM EST P[facility] Home [facility] / [facility] [address] [place] [address] Daksha Yates 09/08/2025 5:30 PM EST P[facility] Home [facility] / [facility] [address] [place] [address] Daksha Yates 09/09/2025 8:30 AM EST [facility] Home [facility] / [facility] [address] [place] [phone] Tiana Sibley 09/09/2025 12:30 PM EST P[facility] Home [facility] / [facility] [address] [place] [address] Daksha Yates 09/09/2025 5:30 PM EST P[facility] Home [facility] / [facility] [address] [place] [phone] Tiana Sibley 09/10/2025 8:30 AM EST P[facility] Home [facility] / [facility] [address] [place] [address] Tiana Sibley 09/10/2025 12:30 PM EST P[facility] Home [facility] / [facility] [address] [place] [address] Tiana Sibley 09/10/2025 5:00 PM EST P[facility] Home [facility] / [facility] [address] [place] [phone] Tiana Sibley 09/11/2025 8:30 AM EST P[facility] Home [facility] / [facility] [address] [place] [address] Brigida Hendricks 09/11/2025 12:30 PM EST [facility] Home [facility] / [facility] [address] [place] [address] Brigida Hendricks 09/11/2025 5:30 PM EST P[facility] Home [facility] / [facility] [address] [place] [address] Brigida Hendricks 09/12/2025 8:00 AM EST [facility] Home [facility] / [facility] [address] [place] [phone] Melissa Raza 09/12/2025 12:30 PM EST P[facility] Home [facility] / [facility] [address] [place] [phone] Melissa Raza 09/12/2025 5:30 PM EST [facility] Home [facility] / [facility] [address] [place] [phone] Daksha Yates 09/13/2025 8:00 AM EST P[facility] Home [facility] / [facility] [address] [place] [address] Tiana Sibley 09/13/2025 12:30 PM EST P[facility] Home [facility] / [facility] [address] [place] [address] Lata Ford 09/13/2025 5:30 PM EST [facility] Home [facility] / [facility] [address] [place] [phone] Daksha Yates 09/14/2025 8:00 AM EST P[facility] Home [facility] / [facility] [address] [place] [address] Melissa Raza 09/14/2025 12:30 PM EST P[facility] Home [facility] / [facility] [address] [place] [address] Melissa Raza 09/14/2025 5:30 PM EST P[facility] Home Care / [facility] [address] [place] [address] Daksha Yates 09/15/2025 8:00 AM EST P[facility] Home [facility] / [facility] [address] [place] [address] Tiana Sibley 09/15/2025 12:30 PM EST P[facility] Home [facility] / [facility] [address] [place] [phone] [facility] 09/15/2025 5:30 PM EST P[facility] Home [facility] / [facility] [address] [place] [phone] [facility] 09/16/2025 8:30 AM EST P[facility] Home [facility] / [facility] [address] [place] [address] Tiana Sibley 09/16/2025 12:30 PM EST PACE Home Care / [facility] [address] [place] [phone] Daksha Yates 09/16/2025 5:30 PM EST [facility] Home [facility] / [facility] [address] [place] [address] Tiana Sibley 09/17/2025 8:30 AM EST P[facility] Home [facility] / [facility] [address] [place] [address] Tiana Sibley 09/17/2025 12:30 PM EST [facility] Home [facility] / [facility] [address] [place] [address] Tiana Sibley 09/17/2025 5:30 PM EST [facility] Home [facility] / [facility] [address] [place] [address] Tiana Sibley 09/18/2025 8:00 AM EST [facility] Home [facility] / [facility] [address] [place] [address] Daksha Yates 09/18/2025 12:30 PM EST P[facility] Home [facility] / [facility] [address] [place] [address] Daksha Yates 09/18/2025 5:30 PM EST [facility] Home [facility] / [facility] [address] [place] [address] Daksha Yates 09/19/2025 8:00 AM EST [facility] Home [facility] / [facility] [address] [place] [address] Melissa Raza 09/19/2025 12:30 PM EST [facility] Home [facility] / [facility] [address] [place] [address] Melissa Raza 09/19/2025 5:30 PM EST [facility] Home [facility] / [facility] [address] [place] [address] Daksha Yates 09/20/2025 8:00 AM EST [facility] Home [facility] / [facility] [address] [place] [address] Tiana Sibley 09/20/2025 12:30 PM EST [facility] Home [facility] / [facility] [address] [place] [address] Lata Ford 09/20/2025 5:30 PM EST [facility] Home [facility] / [facility] [address] [place] [phone] Daksha Yates 09/21/2025 8:00 AM EST P[facility] Home [facility] / [facility] [address] [place] [phone] Melissa Raza 09/21/2025 12:30 PM EST [facility] Home [facility] / [facility] [address] [place] [phone] Melissa Raza 09/21/2025 5:30 PM EST [facility] Home [facility] / [facility] [address] [place] [phone] Daksha Yates 09/22/2025 8:00 AM EST P[facility] Home [facility] / [facility] [address] [place] [phone] Tiana Sibley 09/22/2025 12:30 PM EST P[facility] Home [facility] / [facility] [address] [place] [phone] Daksha Yates 09/22/2025 5:30 PM EST [facility] Home [facility] / [facility] [address] [place] [address] Daksha Yates 09/23/2025 8:30 AM EST [facility] Home [facility] / [facility] [address] [place] [address] Tiana Sibley 09/23/2025 12:30 PM EST P[facility] Home [facility] / [facility] [address] [place] [phone] Daksha Yates 09/23/2025 5:30 PM EST P[facility] Home [facility] / [facility] [address] [place] [phone] Tiana Sibley 09/24/2025 8:30 AM EST P[facility] Home [facility] / [facility] [address] [place] [address] Tiana Sibley 09/24/2025 12:30 PM EST P[facility] Home Care / [facility] [address] [place] [phone] Tiana Sibley 09/24/2025 5:00 PM EST P[facility] Home [facility] / [facility] [address] [place] [phone] Tiana Sibley 09/25/2025 8:30 AM EST [facility] Home [facility] / [facility] [address] [place] [phone] Brigida Hendricks 09/25/2025 12:30 PM EST [facility] Home [facility] / [facility] [address] [place] [phone] Brigida Hendricks 09/25/2025 5:30 PM EST [facility] Home [facility] / [facility] [address] [place] [address] Brigida Hendricks 09/26/2025 8:00 AM EST [facility] Home [facility] / [facility] [address] [place] [address] Melissa Raza 09/26/2025 12:30 PM EST [facility] Home [facility] / [facility] [address] [place] [address] Melissa Raza 09/26/2025 5:30 PM EST [facility] Home [facility] / [facility] [address] [place] [phone] Daksha Yates 09/27/2025 8:00 AM EST P[facility] Home [facility] / [facility] [address] [place] [phone] Tiana Sibley 09/27/2025 12:30 PM EST P[facility] Home [facility] / [facility] [address] [place] [phone] Lata Ford 09/27/2025 5:30 PM EST [facility] Home [facility] / [facility] [address] [place] [phone] Daksha Yates 09/28/2025 8:00 AM EST P[facility] Home [facility] / [facility] [address] [place] [phone] Melissa Raza 09/28/2025 12:30 PM EST [facility] Home [facility] / [facility] [address] [place] [phone] Melissa Raza 09/28/2025 5:30 PM EST [facility] Home [facility] / [facility] [address] [place] [address] Daksha Yates 09/29/2025 8:00 AM EST [facility] Home [facility] / [facility] [address] [place] [address] Tiana Sibley 09/29/2025 12:30 PM EST [facility] Home [facility] / [facility] [address] [place] [address] Daksha Yates 09/29/2025 5:30 PM EST [facility] Home [facility] / [facility] [address] [place] [address] Daksha Yates 09/30/2025 8:30 AM EST [facility] Home [facility] / [facility] [address] [place] [address] Tiana Sibley 09/30/2025 12:30 PM EST [facility] Home [facility] / [facility] [address] [place] [phone] Daksha Yates 09/30/2025 5:30 PM EST [facility] Home [facility] / [facility] [address] [place] [address] Tiana Sibley 10/01/2025 8:30 AM EST [facility] Home [facility] / [facility] [address] [place] [phone] Tiana Sibley 10/01/2025 12:30 PM EST [facility] Home [facility] / [facility] [address] [place] [address] Tiana Sibley 10/01/2025 5:30 PM EST [facility] Home [facility] / [facility] [address] [place] [address] Tiana Sibley 10/02/2025 8:00 AM EST [facility] Home [facility] / [facility] [address] [place] [address] Daksha Yates 10/02/2025 12:30 PM EST [facility] Home [facility] / [facility] [address] [place] [phone] Daksha Yates 10/02/2025 5:30 PM EST [facility] Home [facility] / [facility] [address] [place] [phone] Daksha Yates 10/03/2025 8:00 AM EST P[facility] Home [facility] / [facility] [address] [place] [phone] Melissa Raza 10/03/2025 12:30 PM EST [facility] Home [facility] / [facility] [address] [place] [phone] Melissa Raza 10/03/2025 5:30 PM EST [facility] Home [facility] / [facility] [address] [place] [phone] Daksha Yates 10/04/2025 8:00 AM EST [facility] Home [facility] / [facility] [address] [place] [phone] Tiana Sibley 10/04/2025 12:30 PM EST [facility] Home [facility] / [facility] [address] [place] [phone] Lata Ford 10/04/2025 5:30 PM EST [facility] Home [facility] / [facility] [address] [place] [address] Daksha Yates 10/05/2025 8:00 AM EST P[facility] Home [facility] / [facility] [address] [place] [address] Melissa Raza 10/05/2025 12:30 PM EST [facility] Home [facility] / [facility] [address] [place] [address] Melissa Raza 10/05/2025 5:30 PM EST [facility] Home [facility] / [facility] [address] [place] [phone] Daksha Yates 10/06/2025 8:00 AM EST P[facility] Home [facility] / [facility] [address] [place] [phone] Tiana Sibley 10/06/2025 12:30 PM EST [facility] / [facility] [address] [place] [phone] [facility] 10/06/2025 5:30 PM EST [facility] [address] [place] [phone] [facility] 10/07/2025 8:30 AM EST P[facility] / [facility] [address] [place] [phone] Tiana Sibley 10/07/2025 12:30 PM EST P[facility] Home [facility] / [facility] [address] [place] [phone] MeliadanielShilpichristian 10/07/2025 5:30 PM EST P[facility] Home [facility] / [facility] [address] [place] [address] Tiana Sibley 10/08/2025 8:30 AM EST P[facility] Home [facility] / [facility] [address] [place] [phone] Tiana Sibley 10/08/2025 12:30 PM EST P[facility] Home [facility] / [facility] [address] [place] [phone] Tiana Sibley 10/08/2025 5:00 PM EST P[facility] Home [facility] / [facility] [address] [place] [phone] Tiana Sibley 10/09/2025 8:30 AM EST P[facility] Home [facility] / [facility] [address] [place] [phone] Brigida Hendricks 10/09/2025 12:30 PM EST P[facility] Home [facility] / [facility] [address] [place] [phone] Brigida Hendricks 10/09/2025 5:30 PM EST P[facility] Home [facility] / [facility] [address] [place] [phone] Brigida Hendricks 10/10/2025 8:00 AM EST P[facility] Home [facility] / [facility] [address] [place] [phone] Melissa Raza 10/10/2025 12:30 PM EST P[facility] Home [facility] / [facility] [address] [place] [address] [place] [phone] Melissa Raza 10/10/2025 5:30 PM EST P[facility] Home [facility] / [facility] [address] [place] [address] Daksha Yates 10/11/2025 8:00 AM EST P[facility] Home [facility] / [facility] [address] [place] [address] Tiana Sibley 10/11/2025 12:30 PM EST P[facility] Home [facility] / [facility] [address] [place] [phone] Lata Ford 10/11/2025 5:30 PM EST [facility] [address] [place] [phone] Daksha Yates 10/12/2025 8:00 AM EST [facility] [address] [place] [phone] Melissa Raza 10/12/2025 12:30 PM EST [facility] [address] [place] [phone] Melissa Raza 10/12/2025 5:30 PM EST [facility] [address] [place] [phone] Daksha Yates 10/13/2025 8:00 AM EST [facility] [address] [place] [phone] Tiana Sibley 10/13/2025 12:30 PM EST [facility] [address] [place] [phone] Daksha Yates 10/13/2025 5:30 PM EST [facility] [address] [place] [phone] Daksha Yates 10/14/2025 8:30 AM EST [facility] [address] [place] [phone] Tiana Sibley 10/14/2025 12:30 PM EST [facility] [address] [place] [phone] Daksha Yates 10/14/2025 5:30 PM EST [facility] [place] [facility] [address] [place] [phone] Tiana Sibley 10/15/2025 8:30 AM EST [facility] [place] [facility] [address] [place] [phone] Tiana Sibley 10/15/2025 12:30 PM EST [facility] [place] [facility] [address] [place] [phone] Tiana Sibley 10/15/2025 5:30 PM EST [facility] [place] [facility] [address] [place] [phone] Tiana Sibley 10/16/2025 8:00 AM EST [facility] [address] [place] [phone] Daksha Yates 10/16/2025 12:30 PM EST [facility] [address] [place] [phone] Daksha Yates 10/16/2025 5:30 PM EST [facility] [address] [place] [phone] Daksha Yates 10/17/2025 8:00 AM EST [facility] [place] [facility] [address] [place] [phone] Melissa Raza 10/17/2025 12:30 PM EST [facility] [place] [facility] [address] [place] [phone] Melissa Raza 10/17/2025 5:30 PM EST [facility] [address] [place] [phone] Daksha Yates 10/18/2025 8:00 AM EST [facility] [place] [facility] [address] [place] [phone] Tiana Sibley 10/18/2025 12:30 PM EST [facility] [address] [place] [phone] Lata Ford 10/18/2025 5:30 PM EST [facility] [address] [place] [phone] Daksha Yates 10/19/2025 8:00 AM EST [facility] [address] [place] [phone] Melissa Raza 10/19/2025 12:30 PM EST [facility] [address] [place] [phone] Melissa Raza 10/19/2025 5:30 PM EST [facility] [address] [place] [phone] Daksha Yates 10/20/2025 8:00 AM EST [facility] [place] [facility] [address] [place] [phone] Tiana Sibley 10/20/2025 12:30 PM EST [facility] [place] [facility] [address] [place] [phone] Daksha Yates 10/20/2025 5:30 PM EST [facility] [place] [facility] [address] [place] [phone] Daksha Yates 10/21/2025 8:30 AM EST [facility] [place] [facility] [address] [place] [phone] Tiana Sibley 10/21/2025 12:30 PM EST [facility] [place] [facility] [address] [place] [phone] Daksha Yatse 10/21/2025 5:30 PM EST [facility] [place] [facility] [address] [place] [phone] Tiana Sibley 10/22/2025 8:30 AM EST [facility] [address] [place] [phone] Tiana Sibley 10/22/2025 12:30 PM EST [facility] [place] [facility] [address] [place] [phone] Tiana Sibley 10/22/2025 5:00 PM EST [facility] [place] [facility] [address] [place] [phone] Tiana Sibley 10/23/2025 8:30 AM EST [facility] [place] [facility] [address] [place] [phone] Brigida Hendricks 10/23/2025 12:30 PM EST [facility] [place] [facility] [address] [place] [phone] Brigida Hendricks 10/23/2025 5:30 PM EST [facility] [address] [place] [phone] Brigida Hendricks documented as of this encounter Visit Diagnoses Not on filedocumented in this encounter Additional Health Concerns Assessment Noted Time PHQ-9 Depression Total Score: 3 03/25/20 11:12 AM EDT documented as of this encounter Care Teams Gta Relationship Specialty Start Date End Date Reyna Zuniga NP [address] [place] [phone] PCP - General Family Medicine 11/06/24 documented as of this encounter
--- NOTE | 2025-08-23 13:33 | A.OFFVIS_ITS ---
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 Accompanied by: Son Allergies No Known Allergies (No Known Allergies*) Allergy (Verified 07/25/25 13:34) Medication List - Last Reconciled 08/23/25 by Zo Jones MD atorvastatin 40 mg PO BEDTIME 90 days carbidopa-levodopa 25-100 mg 1.5 tabs PO QID 90 days escitalopram oxalate 5 mg PO DAILY 90 days finasteride 5 mg PO DAILY 90 days finasteride 5 mg PO DAILY fluticasone propionate 50 mcg/actuation 2 sprays intranasal DAILY PRN 30 days melatonin 3 mg PO BEDTIME PRN metoprolol succinate ER 25 mg PO DAILY midodrine 5 mg PO TID quetiapine 25 mg PO BEDTIME rasagiline 1 mg PO DAILY 3 months sennosides (senna) 17.2 mg (2 x 8.6 mg) PO BEDTIME 30 days HPI Comments Details: 75y/o Right handed male comes for follow up of parkinsons disease. He was admitted at [facility] for hallucinations, agitation and found to be hypotensive.He is on carbidopa/levodopa 25/100 1.tabs tid now. quetiapine 25 mg qhs He was started on midodrine 5 mg .Patient is also on metoprolol 12.5 mg qd He was given a diagnosis of possible lewy body dementia. he was started on Rivastigmine.1.5 mg bid He is independent in all his ADLS. He has vivid dreams less than before -he has disrupted sleep Mood is stable. History-He started noticing tremors - rest about 2-3 years ago L>R He was diagnosed with parkinsons disease .He was started on carbidopa/levodopa and it helped.In summer 2022 - he had delirium , diagnosed with UTI.He was admitted at [facility] , he was very confused and was told that he was sundowning. He saw after that and diagnosed with Diffuse Lewy body dementia. He is home now and has been stable since his UTI was treated. Cognition- normal SLeep- he has dream enactment Mood- he takes meds for anxiety SPeech-same Swallowing-normal No drooling Handwriting-good He is able to dress, shower. Gait- good, no falls recently ( during UTI he had a fall) Bowel movements- constipation No double vision Vertigo with change in head positions. Hallucinations-during UTI Sleep- good [facility] Medical History (Updated 08/23/25 @ 14:19 by Zo Jones MD) Orthostatic hypotension Hallucinations Benign prostate hyperplasia Parkinson's disease without dyskinesia or fluctuating manifestations Erectile dysfunction Impaired fasting glucose Hearing impairment Parkinson's disease Pure hypercholesterolemia Benign essential hypertension Surgical History History of cochlear implant (~01/03/23) History of hernia surgery Family History Father No problems noted. Mother No problems noted. Social History Household Members: None Housing: House Do you presently have visiting nurse or other home services: No Alcohol intake: current Alcohol intake frequency: holidays/special occasions only Alcohol type: beer Comment: occasionally Patient Tobacco Use Status: Former Tobacco user Tobacco use type: Cigarette e-Cigarette/Vaping Use: Never Used Second Hand Smoke Exposure: No service: No Current occupational status: retired Cognitive needs: No Hearing needs: Yes (hearing aide) Vision needs: Yes (reading glasses) Physical Exam Vital Signs: Last Vital Signs Pulse 55 08/23/25 13:34 BP 142/80 H 08/23/25 13:34 Pulse Ox 96 08/23/25 13:34 Oxygen Delivery Method Room Air 08/23/25 13:34 BMI result Body Mass Index 22.0 Const General: cooperative, healthy appearing, comfortable and no acute distress Nutritional Appearance: average body habitus Orientation/consciousness: patient oriented x3 Eyes Pupils: Equal, round and reactive pupils present Neuro Other: Mild decreased blink , facial expression Mild dysprosody Alphonso moderate amplitude Rest tremors L>R No action or postural tremors FFM and foot taps mildly decreased mild L>R Gait- mild stoop, slow good stride , decreased arm swings alphonso L>R General: patient oriented x3 and moves all extremities Cranial nerves: Yes Facial sensation intact/muscles of mastication intact, Yes Equal, round and reactive pupils present, No Bilaterally intact EOM present, Yes Nystagmus not present, Yes Normal facial strength present, Yes Midline tongue present and Yes Ability to bilaterally elevate shoulders present Cognition (Neuro): normal cognition Motor exam (neuro): 5/5 motor strength present throughout Coordination: [id number] test normal Assessment & Plan Assessment & Plan (1) Parkinson's disease without dyskinesia or fluctuating manifestations: Comment: Tremor predominant , multiple falls - possible Lewy body dementia Code(s): G20.A1 - Parkinson's disease without dyskinesia, without mention of fluctuations Category: Medical (2) Hallucinations: Code(s): R44.3 - Hallucinations, unspecified Category: Medical (3) Orthostatic hypotension: Code(s): I95.1 - Orthostatic hypotension Category: Medical Plan D/C Metoprolol continue midodrine 5mg tid Monitor BP Carbidopa/levodopa 25/100 tid Rasagiline 1mg qd quetiapine 25 mg qhs He was discharged form his OT and PT Multiple videos showing falls. Medications: New midodrine do not give last dose of day after 6PM or within 4 hrs of bedtime 5 mg PO TID Changed From carbidopa-levodopa 25-100 mg 1.5 tabs PO QID 90 days 540 tabs 6RF To carbidopa-levodopa 25-100 mg 1 tab PO TID 270 tabs 6RF 90 days Discontinued finasteride Discontinued Reason: Duplicate 5 mg PO DAILY 90 days 90 tabs 3RF N40.1 - Benign prostatic hyperplasia with lower urinary tract symptoms, R33.9 - Retention of urine, unspecified Coding Level of Care Code Est Pt Level 4 (39737) Complex EM visit Add On G2211 Diagnoses Parkinson's disease without dyskinesia or fluctuating manifestations G20.A1 Hallucinations R44.3 Orthostatic hypotension I95.1
[2025-08-23 13:34] VITALS: BP 142/80; PULSE 55; O2SAT 96; BMI 22.0
--- OUTSIDE RECORDS SUMMARY | 2025-08-24 06:54 | XMS_ITS | Clinical Summary ---
Author Organization [facility] [address] Phone Care Team Providers Care Billboard Poster Helper Name Role Phone Reyna Zuniga WIND OPERATIONS SUPERVISOR Primary Care Provider [phone] Allergies No known active allergies Medications polyethylene glycol (MIRALAX) 17 gram packetIndications: Constipation, unspecified constipation type Take 17 g by mouth 1 (one) time each day. 28 packet 03/22/20 026 Active varicella-zoster gE-AS01B, PF, (Shingrix, PF,) 50 mcg/0.5 mL suspension for reconstitutionIndi cations:Encounter for immunization Inject 0.5 mL into the shoulder, thigh, or buttocks every 6 (six) months. 1 each 03/25/20 25 Active rasagiline (AZILECT) 1 mg tabletIndications: Parkinson's disease without dyskinesia, with fluctuating manifestations (CMS/HCC V24, CMS/HCC V28) Take 1 tablet (1 mg total) by mouth 1 (one) time each day. 28 tablet 05/16/20 25 026 Active midodrine (PROAMATINE) 5 mg tabletIndications: Orthostatic hypotension due to Parkinson disease (CMS/HCC V24, CMS/HCC V28) Take 1 tablet (5 mg total) by mouth 2 (two) times a day. 60 each 07/13/20 25 Active meclizine (ANTIVERT) 25 mg tabletIndications: Vertigo Take 1 tablet (25 mg total) by mouth 3 (three) times a day if needed for dizziness. 30 tablet 5 07/13/20 25 Active senna 8.6 mg tabletIndications: Chronic idiopathic constipation Take 1 tablet (8.6 mg total) by mouth 1 (one) time each day. 30 each 07/13/20 25 Active atorvastatin (LIPITOR) 40 mg tabletIndications: Hypercholesterolem ia Take 1 tablet (40 mg total) by mouth 1 (one) time each day in the evening. 1 tab by mouth every day at bedtime 30 each 07/21/20 Active metoprolol tartrate (LOPRESSOR) 25 mg tabletIndications: Primary hypertension Take 0.5 tablets (12.5 mg total) by mouth 2 (two) times a day. 30 each 07/21/20 Active escitalopram (LEXAPRO) 5 mg tabletIndications: Depression, major, recurrent, mild (CMS/HCC V24) Take 1 tablet (5 mg total) by mouth 1 (one) time each day. 30 each 07/21/20 Active finasteride (PROSCAR) 5 mg tabletIndications: Benign prostatic hyperplasia with urinary frequency Take 1 tablet (5 mg total) by mouth 1 (one) time each day. 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 60 capsule 08/03/20 Active QUEtiapine (SEROquel) 25 mg tabletIndications: Parkinson's disease without dyskinesia, with fluctuating manifestations (CMS/HCC V24, CMS/HCC V28) Take 1 tablet (25 mg total) by mouth 1 (one) time each day in the evening. 28 each 11 11/17 026 Active carbidopa-levodopa (SINEMET) 25-100 mg per tabletIndications: Parkinson's disease without dyskinesia, with fluctuating manifestations (CMS/HCC V24, CMS/HCC V28) Take 1 tablet by mouth 3 (three) times a day. Morning, noon and evening dosing 90 tablet 08/22/20 026 Active rivastigmine (Exelon Patch) 4.6 mg/24 hourIndications:Mo derate dementia due to Parkinson's disease, with other behavioral disturbance (CMS/HCC V24, CMS/HCC V28) Place 1 patch on the skin 1 (one) time each day. 30 each 07/13/20 25 025 Discontinu ed(Dose adjustment ) carbidopa-levodopa (SINEMET) 25-100 mg per tabletIndications: Parkinson's disease without dyskinesia, with fluctuating manifestations (CMS/HCC V24, CMS/HCC V28) Take 1 tablet by mouth 3 (three) times a day. 90 tablet 07/13/20 025 Discontinu ed(Reorder ) QUEtiapine (SEROquel) 25 mg tabletIndications: Parkinson's disease without dyskinesia, with fluctuating manifestations (CMS/HCC V24, CMS/HCC V28) Take 1 tablet (25 mg total) by mouth 1 (one) time each day in the evening. Take 1 tablet 6 pm and 1 tablet at bedtime 28 each 07/21/20 25 025 Discontinu ed(Reorder ) tamsulosin (FLOMAX) 0.4 mg 24 hr capsuleIndications :Benign prostatic hyperplasia with urinary frequency Take 1 capsule (0.4 mg total) by mouth 1 (one) time each day in the evening. 30 each 07/21/20 25 025 Discontinu ed(Discont inued by another clinician) Active Problems Problem Noted Date Diagnosed Date [...] (11/17/2024): BPH with LUTS Assessment & Plan (07/21/2025 3:10 PM EDT): PAR on Finasteride and tamsulosin daily in the evening. Discussed with son that tamsulosin can also contribute to hypotension. PAR is scheduled to see Urologist on Friday. He will discuss with urology about discontinuing medication. Assessment & Plan (03/26/2025 3:07 PM EDT): [...] lipid panels. Hypertension 11/17/2024 Assessment & Plan (07/21/2025 3:12 PM EDT): Systolic blood pressure less than 120 and PAR also bradycardic. Will reduce dose of Metoprolol by 50%. Assessment & Plan (04/25/2025 3:26 PM EDT): Blood pressure seems to be improving. Still with HR less < 60. Now of beta- amita. Continue to monitor. Continue Lisinopril at current dose. Assessment & Plan (03/26/2025 3:01 PM EDT): [...] every morning. Bradycardia 11/17/2024 Assessment & Plan (07/21/2025 3:08 PM EDT): HR palpable at 48. Will reduce dose of Metoprolol to 12.5 mg twice a day. Continue to monitor HR and blood pressure. Assessment & Plan (03/26/2025 3:05 PM EDT): EKG performed heart rate 46. Need to discontinue metoprolol. Monitor. Intolerance to cold 11/17/2024 Assessment & Plan (03/26/2025 3:14 PM EDT): Secondary to Parkinson's disease. Has intermittent episodes of diaphoresis. Continue to monitor. Orthostatic hypotension due to Parkinson disease (CMS/[facility] V24, CMS/HCC V28) 11/17/2024 Assessment & Plan (07/21/2025 3:08 PM EDT): Continue midodrine as ordered. Blood pressure is soft and also bradycardic. This most likely due to beta-amita. Currently not orthostatic. Continue Parkinson's medications as prescribed per neurologist. Assessment & Plan (04/25/2025 3:28 PM EDT): PAR advised to follow up with neurologist regarding parkinson's medication. Dizziness can be one of the side effects of carbidopa/levadopa. Monitor. Assessment & Plan (03/26/2025 3:18 PM EDT): Chronic condition; labile. Continues to have signs of diaphoresis. Also continues dose of quetiapine recently increased by neurologist due to having episodes hallucinations at night. Continue carbidopa-levodopa as prescribed. Continue to follow-up with neurologist as directed. 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 Cataract of left eye 11/17/2024 Assessment & Plan (03/26/2025 3:00 PM EDT): Chronic condition; stable. Continue to follow-up with administrative support assistant as indicated. Assessment & Plan (01/08/2025 6:04 PM EDT): PAR is scheduled for left cataract surgery on 01/17/25. No direct contraindication to surgery expect that blood pressure is not within acceptable range. Will have PAR return in 1 week for BP recheck. Reinforced importance of taking BP meds every morning. Encounters Date Type Department Care Team Description 08/22/2025 12:30 PM EST [facility] Home Care / [facility] Home Visit [facility] [address] [place] [phone] Melissa Raza 08/22/2025 8:00 AM EST PACE Home Care / PACE Home Visit [facility] [address] [place] [phone] Melissa Raza 08/18/2025 12:00 PM EST PACE Assessment [facility] [address] [place] [phone] Antonio Adnrade OT Orthostatic hypotension due to Parkinson disease (CMS/HCC V24, CMS/HCC V28) (Primary Dx) 08/18/2025 PACE Fall [facility] [address] [place] [phone] Antonio Andrade OT 08/18/2025 [facility] [address] [place] [phone] Antonio Andrade OT 08/14/2025 5:30 PM EST PACE Home Care / PACE Home Visit [facility] [address] [place] [phone] Brigida Hendricks 08/14/2025 12:30 PM EST PACE Home Care / P[facility] Home Visit [facility] [address] [place] [phone] Brigida Hendricsk 08/14/2025 8:30 AM EST P[facility] Home Care / [facility] [address] [place] [phone] Brigida Hendricks 08/13/2025 9:00 AM EST PACE Home Care / PACE Home Visit [facility] [address] [place] [phone] Brigida Hendricks 08/11/2025 1:30 PM EST Treatment [facility] [address] [place] [phone] Anastasia Barnes COTA 08/08/2025 1:00 PM EST Treatment [facility] [address] [place] [phone] Anastasia Barnes COTA 08/04/2025 2:00 PM EDT Treatment [facility] [address] [place] [phone] Marlene Martinez, ALBERTO 08/04/2025 1:00 PM EDT Treatment [facility] [address] [place] [phone] Anastasia Barnes COTA 08/03/2025 12:30 PM EDT PACE Home Care / [facility] [address] [place] [phone] Kathy Jon 08/03/2025 10:00 AM EDT Clinical Support [facility] [address] [place] [phone] Kirsten Umanzor RN 08/02/2025 1:00 PM EDT Treatment [facility] [address] [place] [phone] Anastasia Barnes COTA 08/02/2025 12:30 PM EDT PACE Home Care / PACE Home Visit [facility] [address] [place] [phone] Lata Ford 08/02/2025 8:00 AM EDT PACE Home Care / PACE Home Visit [facility] [address] [place] [phone] Tiana Sibley 08/01/2025 Telephone [facility] [address] [place] [phone] Marlene Martinez PTA 07/31/2025 5:30 PM EDT PACE Home Care / P[facility] Home Visit [facility] [address] [place] [phone] Brigida Hendricks 07/31/2025 12:30 PM EDT PACE Home Care / PACE Home Visit [facility] [address] [place] [phone] Brigida Hendricks 07/31/2025 8:30 AM EDT PACE Home Care / PACE Home Visit [facility] [address] [place] [phone] Brigida Hendricks 07/30/2025 9:00 AM EDT [facility] Home [facility] / [facility] [address] [place] [phone] Brigida Hendricks 07/29/2025 2:00 PM EDT Treatment [facility] [address] [place] [phone] Marlene Martinez, PSYCHOLOGISTS 07/28/2025 1:00 PM EDT Treatment [facility] [address] [place] [phone] Anastasia Barnes COTA 07/27/2025 2:00 PM EDT Treatment [facility] [address] [place] [phone] Marlene Martinez, PSYCHOLOGISTS 07/27/2025 11:00 AM EDT Clinical Support [facility] [address] [place] [phone] Kirsten Umanzor RN 07/26/2025 12:00 PM EDT PACE Home Care / PACE Home Visit [facility] [address] [place] [phone] Tiana Sibley 07/26/2025 9:00 AM EDT PACE External Visit [facility] [address] [phone] 07/26/2025 7:30 AM EDT PACE Home Care / PACE Home Visit [facility] [address] [place] [phone] Tiana Sibley 07/22/2025 2:00 PM EDT Treatment [facility] [address] [place] [phone] Marlene Martinez, PSYCHOLOGISTS 07/21/2025 11:30 AM EDT Treatment [facility] [address] [place] [phone] Anastasia Barnes COTA 07/20/2025 1:00 PM EDT Office [facility] [address] [place] [phone] Reyna Zuniga, GIOVANNA Orthostatic hypotension due to Parkinson disease (CMS/HCC V24, CMS/HCC V28) (Primary Dx); Parkinson's disease without dyskinesia, with fluctuating manifestations (CMS/HCC V24, CMS/HCC V28); Primary hypertension; Hypercholesterolemia; Benign prostatic hyperplasia with urinary frequency; Depression, major, recurrent, mild (CMS/HCC V24); Bradycardia 07/20/2025 8:00 AM EDT PACE Home Care / [facility]ACE Home Visit [facility] [address] [place] [phone] Brigida Hendricks 07/20/2025 Telephone [facility] [address] [place] [phone] Anastasia Barnes COTA 07/19/2025 2:00 PM EDT Treatment [facility] [address] [place] [phone] Marlene Martinez, PSYCHOLOGISTS 07/19/2025 8:00 AM EDT PACE Home Care / PACE Home Visit [facility] [address] [place] [phone] Tiana Sibley 07/17/2025 5:00 PM EDT PACE Home [facility] / [facility] [address] [place] [phone] Brigida Hendricks 07/17/2025 8:30 AM EDT PACE Home Care / PACE Home Visit [facility] [address] [place] [phone] Brigida Hendricks 07/15/2025 2:00 PM EDT Treatment [facility] [address] [place] [phone] Marlene Martinez, PSYCHOLOGISTS 07/14/2025 11:00 AM EDT Treatment [facility] [address] [place] [phone] Cassie Ramires, PT 07/14/2025 10:45 AM EDT Treatment [facility] [address] [place] [phone] Antonio Andrade OT 07/14/2025 8:00 AM EDT PACE Home Care / PACE Home Visit [facility] [address] [place] [phone] Sibley Tiana 06/22/2025 PACE Admissions [address] [phone] Liberty Burns, RN 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 V24, [facility] V28) (Primary Dx); Orthostatic hypotension; Pure hypercholesterolemia 06/17/2025 PACE Fall [address] [phone] Liberty Burns, GRADY 06/15/2025 PACE Admissions [address] [phone] Liberty Burns, aerospace physiological technician kidney injury ([facility] V24) (Primary Dx); Hallucinations; Delirium; Dementia due to Parkinson's disease, with agitation, unspecified dementia severity ([facility] V24, [facility] V28) 06/14/2025 11:00 AM EDT Clinical Support [address] [phone] Kirsten Umanzor RN 05/26/2025 10:[address] [facility] External Visit [address] [phone] 05/24/2025 10:[address] [facility] External Visit [address] [phone] from Last 3 Months Immunizations Immunization Administration Dates Next Due Moderna SARS-CoV-2 COVID-19, [...] Sign Reading Time Taken Comments Blood Pressure 98/50 07/20/2025 3:35 PM EDT Pulse 47 07/20/2025 3:35 PM EDT Temperature 36.3 C (97.3 F) 07/20/2025 1:30 PM EDT Respiratory Rate 16 07/20/2025 1:30 PM EDT Oxygen Saturation 99% 07/20/2025 1:30 PM EDT Inhaled Oxygen Concentration - - Weight 60.4 kg (133 lb 1.6 oz) 07/20/2025 1:30 P M EDT Height 167.6 cm (5' 6 ) 03/30/2025 3:00 PM EDT Body Mass Index 21.48 03/30/2025 3:00 PM EDT Plan of Treatment Upcoming Encounters Date Type Department Care Team (Late st Contact Info) Description 08/24/2025 8:00 AM EST PACE Home Care / [facility] Home Visit [facility] [address] [place] [phone] Melissa Raza 08/24/2025 12:30 PM EST P[facility] Home Care / P[facility] Home Visit [facility] [address] [place] [phone] Melissa Raza 08/24/2025 1:00 PM EST Office Visit [facility] [address] [place] [phone] Ilsa Frias MD [address] [address] 08/24/2025 5:30 PM EST PACE Home Care / [facility] [address] [place] [phone] Daksha Yates 08/25/2025 7:00 AM EST PACE Home Care / [facility] Home [facility] [address] [place] [phone] Tiana Sibley 08/25/2025 12:30 PM EST PACE Home Care / [facility] Home [facility] [address] [place] [phone] Daksha Yates 08/25/2025 5:30 PM EST PACE Home Care / [facility] Home Visit [facility] [address] [place] [phone] Daksha Yates 08/26/2025 8:30 AM EST PACE Home Care / [facility] Home Visit [facility] [address] [place] [phone] Tiana Sibley 08/26/2025 12:00 PM EST PACE Home Care / [facility] Home Visit [facility] [address] [place] [phone] Jesse Alfred 08/26/2025 5:30 PM EST PACE Home Care / [facility] [address] [place] [phone] Tiana Sibley 08/27/2025 8:00 AM EST PACE Home Care / [facility] [address] [place] [phone] Daksha Yates 08/27/2025 1:00 PM EST PACE Home Care / [facility] [address] [place] [phone] Tiana Sibley 08/27/2025 5:00 PM EST PACE Home Care / [facility] Home [facility] [address] [place] [phone] Daksha Yates 08/28/2025 8:00 AM EST PACE Home Care / [facility] [address] [place] [phone] Daksha Yates 08/28/2025 12:30 PM EST P[facility] Home Care / [facility] [address] [place] [phone] Jesse Alfred 08/28/2025 4:30 PM EST PACE Home Care / [facility] Home [facility] [address] [place] [phone] Daksha Yates 08/29/2025 8:00 AM EST PACE Home Care / [facility] Home [facility] [address] [place] [phone] Melissa Raza 08/29/2025 12:30 PM EST PACE Home Care / [facility] [address] [place] [phone] Melissa Raza 08/29/2025 5:30 PM EST PACE Home Care / [facility] [address] [place] [phone] Daksha Yates 08/30/2025 8:00 AM EST PACE Home Care / [facility] [address] [place] [phone] Tiana Sibley 08/30/2025 12:30 PM EST PACE Home Care / [facility] [address] [place] [phone] Lata Ford 08/30/2025 5:30 PM EST PACE Home Care / [facility] Home [facility] [address] [place] [phone] Daksha Yates 08/31/2025 8:30 AM EST PACE Home Care / [facility] Home [facility] [address] [place] [phone] Melissa Raza 08/31/2025 12:30 PM EST PACE Home Care / [facility] Home Visit [facility] [address] [place] [phone] Melissa Raza 08/31/2025 5:00 PM EST PACE Home Care / [facility] [address] [place] [phone] Daksha Yates 09/01/2025 8:30 AM EST PACE Home Care / [facility] Home [facility] [address] [place] [phone] Tiana Sibley 09/01/2025 12:30 PM EST PACE Home Care / [facility] [address] [place] [phone] Danskimberly Shechristian 09/01/2025 5:30 PM EST PACE Home Care / [facility] [address] [place] [phone] Dansereadaniel Shechristian 09/02/2025 8:30 AM EST PACE Home Care / [facility] [address] [place] [phone] Tiana Sibley 09/02/2025 1:30 PM EST PACE Home Care / [facility] [address] [place] [phone] Tiana Sibley 09/02/2025 4:00 PM EST PACE Home Care / [facility] [address] [place] [phone] Tiana Sibley 09/03/2025 8:30 AM EST PACE Home Care / [facility] [address] [place] [phone] Tiana Sibley 09/03/2025 12:30 PM EST PACE Home Care / [facility] [address] [place] [phone] Tiana Sibley 09/03/2025 5:30 PM EST PACE Home Care / [facility] [address] [place] [phone] Tiana Sibley 09/04/2025 8:00 AM EST PACE Home Care / [facility] [address] [place] [phone] Dansereadaniel, Shechristian 09/04/2025 12:30 PM EST PACE Home Care / [facility] [address] [place] [phone] Dansereau, Sheana 09/04/2025 5:30 PM EST PACE Home Care / [facility] [address] [place] [phone] Dansereau, Daksha 09/05/2025 8:00 AM EST PACE Home Care / [facility] [address] [place] [phone] Melissa Raza 09/05/2025 12:30 PM EST PACE Home Care / [facility] Home [facility] [address] [place] [phone] Melissa Raza 09/05/2025 5:30 PM EST PACE Home Care / [facility] [address] [place] [phone] Daksha Yates 09/06/2025 8:00 AM EST PACE Home Care / [facility] [address] [place] [phone] Tiana Sibley 09/06/2025 12:30 PM EST PACE Home Care / [facility] [address] [place] [phone] Lata Ford 09/06/2025 5:30 PM EST PACE Home Care / [facility] [address] [place] [phone] Daksha Yates 09/07/2025 8:00 AM EST PACE Home Care / [facility] [address] [place] [phone] Melissa Raza 09/07/2025 12:30 PM EST PACE Home Care / [facility] [address] [place] [phone] Melissa Raza 09/07/2025 5:30 PM EST PACE Home Care / [facility] [address] [place] [phone] Daksha Yates 09/08/2025 8:00 AM EST PACE Home Care / [facility] [address] [place] [phone] Tiana Sibley 09/08/2025 12:30 PM EST PACE Home Care / [facility] [address] [place] [phone] Daksha Yates 09/08/2025 5:30 PM EST PACE Home Care / [facility] [address] [place] [phone] Daksha Yates 09/09/2025 8:30 AM EST PACE Home Care / [facility] [address] [place] [phone] Tiana Sibley 09/09/2025 12:30 PM EST PACE Home Care / [facility] [address] [place] [phone] Daksha Yates 09/09/2025 5:30 PM EST P[facility] Home Care / [facility] [address] [place] [phone] Tiana Sibley 09/10/2025 8:30 AM EST P[facility] Home [facility] / [facility] [facility] [place] [facility] [address] [place] [phone] Tiana Sibley 09/10/2025 12:30 PM EST P[facility] Home [facility] / [facility] [address] [place] [address] Tiana Sibley 09/10/2025 5:00 PM EST P[facility] Home Care / [facility] [address] [place] [phone] Tiana Sibley 09/11/2025 8:30 AM EST P[facility] Home Care / [facility] [address] [place] [address] Brigida Hendricks 09/11/2025 12:30 PM EST [facility] Home [facility] / [facility] [address] [place] [address] Brigida Hendricks 09/11/2025 5:30 PM EST P[facility] Home [facility] / [facility] [address] [place] [address] Brigida Hendricks 09/12/2025 8:00 AM EST [facility] Home [facility] / [facility] [address] [place] [phone] Melissa Raza 09/12/2025 12:30 PM EST [facility] Home [facility] / [facility] [facility] [address] [place] [phone] Melissa Raza 09/12/2025 5:30 PM EST [facility] Home [facility] / [facility] [address] [place] [phone] Daksha Yates 09/13/2025 8:00 AM EST [facility] Home [facility] / [facility] [address] [place] [phone] Tiana Sibley 09/13/2025 12:30 PM EST [facility] Home [facility] / [facility] [address] [place] [phone] Lata Ford 09/13/2025 5:30 PM EST [facility] Home [facility] / [facility] [address] [place] [phone] Daksha Yates 09/14/2025 8:00 AM EST [facility] Home [facility] / [facility] [address] [place] [address] Melissa Raza 09/14/2025 12:30 PM EST [facility] Home [facility] / [facility] [address] [place] [address] Melissa Raza 09/14/2025 5:30 PM EST [facility] Home [facility] / [facility] [address] [place] [address] Daksha Yates 09/15/2025 8:00 AM EST [facility] Home [facility] / [facility] [address] [place] [address] Tiana Sibley 09/15/2025 12:30 PM EST [facility] Home [facility] / [facility] [address] [place] [address] Daksha Yates 09/15/2025 5:30 PM EST [facility] Home [facility] / [facility] [facility] [address] [place] [phone] Daksha Yates 09/16/2025 8:30 AM EST [facility] Home [facility] / [facility] [facility] [address] [place] [phone] Tiana Sibley 09/16/2025 12:30 PM EST [facility] Home [facility] / [facility] [facility] [address] [place] [phone] Daksha Yates 09/16/2025 5:30 PM EST [facility] Home [facility] / [facility] [address] [place] [address] Tiana Sibley 09/17/2025 8:30 AM EST [facility] Home [facility] / [facility] [address] [place] [address] Tiana Sibley 09/17/2025 12:30 PM EST P[facility] Home [facility] / [facility] [place] [facility] [address] [place] [address] Tiana Sibley 09/17/2025 5:30 PM EST [facility] Home [facility] / [facility] [address] [place] [address] Tiana Sibley 09/18/2025 8:00 AM EST [facility] Home [facility] / [facility] [address] [place] [address] Daksha Yates 09/18/2025 12:30 PM EST [facility] Home [facility] / [facility] [address] [place] [address] Daksha Yates 09/18/2025 5:30 PM EST [facility] Home [facility] / [facility] [address] [place] [phone] Daksha Yates 09/19/2025 8:00 AM EST [facility] Home [facility] / [place] [facility] [place] [facility] [address] [place] [phone] Melissa Raza 09/19/2025 12:30 PM EST [facility] Home [facility] / [facility] [address] [place] [phone] Melissa Raza 09/19/2025 5:30 PM EST [facility] Home [facility] / [facility] [address] [place] [phone] Daksha Yates 09/20/2025 8:00 AM EST [facility] Home [facility] / [facility] [facility] [address] [place] [address] Tiana Sibley 09/20/2025 12:30 PM EST [facility] Home [facility] / [facility] [address] [place] [address] Lata Ford 09/20/2025 5:30 PM EST [facility] Home [facility] / [facility] [address] [place] [address] Daksha Yates 09/21/2025 8:00 AM EST [facility] / [place] [facility] [address] [place] [phone] Melissa Raza 09/21/2025 12:30 PM EST [facility] Home [facility] / [facility] [address] [place] [phone] Melissa Raza 09/21/2025 5:30 PM EST [facility] Home [facility] / [facility] [address] [place] [phone] Daksha Yates 09/22/2025 8:00 AM EST [facility] Home [facility] / [facility] [address] [place] [phone] Tiana Sibley 09/22/2025 12:30 PM EST [facility] Home [facility] / [facility] [address] [place] [phone] Daksha Yates 09/22/2025 5:30 PM EST [facility] Home [facility] / [facility] [address] [place] [phone] Daksha Yates 09/23/2025 8:30 AM EST [facility] Home [facility] / [facility] [address] [place] [address] Tiana Sibley 09/23/2025 12:30 PM EST [facility] Home [facility] / [facility] [address] [place] [address] Daksha Yates 09/23/2025 5:30 PM EST [facility] Home [facility] / [facility] [address] [place] [address] Tiana Sibley 09/24/2025 8:30 AM EST [facility] Home [facility] / [facility] [address] [place] [phone] Tiana Sibley 09/24/2025 12:30 PM EST [facility] Home [facility] / [facility] [address] [place] [phone] Tiana Sibley 09/24/2025 5:00 PM EST [facility] Home [facility] [address] [place] [phone] Tiana Sibley 09/25/2025 8:30 AM EST [facility] Home [facility] / [facility] [address] [place] [phone] Brigida Hendricks 09/25/2025 12:30 PM EST [facility] Home [facility] / [facility] [address] [place] [phone] Brigida Hendricks 09/25/2025 5:30 PM EST [facility] Home [facility] / [facility] [address] [place] [phone] Brigida Hendricks 09/26/2025 8:00 AM EST [facility] Home [facility] / [facility] [address] [place] [address] Melissa Raza 09/26/2025 12:30 PM EST [facility] Home [facility] / [facility] [address] [place] [address] Melissa Raza 09/26/2025 5:30 PM EST [facility] Home [facility] / [facility] [address] [place] [address] Daksha Yates 09/27/2025 8:00 AM EST [facility] Home [facility] / [facility] [address] [place] [phone] Tiana Sibley 09/27/2025 12:30 PM EST [facility] Home [facility] / [facility] [address] [place] [phone] Lata Ford 09/27/2025 5:30 PM EST [facility] / [facility] [address] [place] [phone] Daksha Yates 09/28/2025 8:00 AM EST [facility] Home [facility] / [facility] [address] [place] [phone] Melissa Raza 09/28/2025 12:30 PM EST [facility] Home [facility] / [facility] [address] [place] [phone] Melissa Raza 09/28/2025 5:30 PM EST [facility] Home [facility] / [facility] [address] [place] [phone] Daksha Yates 09/29/2025 8:00 AM EST [facility] Home [facility] / [facility] [address] [place] [address] Tiana Sibley 09/29/2025 12:30 PM EST [facility] Home [facility] / [facility] [address] [place] [address] Daksha Yates 09/29/2025 5:30 PM EST [facility] Home [facility] / [facility] [address] [place] [address] Daksha Yates 09/30/2025 8:30 AM EST [facility] Home [facility] / [facility] [address] [place] [phone] Tiana Sibley 09/30/2025 12:30 PM EST [facility] Home [facility] / [facility] [address] [place] [phone] Daksha Yates 09/30/2025 5:30 PM EST [facility] Home [facility] / [facility] [address] [place] [phone] Tiana Sibley 10/01/2025 8:30 AM EST [facility] Home [facility] / [facility] [address] [place] [phone] Tiana Sibley 10/01/2025 12:30 PM EST [facility] Home [facility] / [facility] [address] [place] [phone] Tiana Sibley 10/01/2025 5:30 PM EST [facility] Home [facility] / [facility] [facility] [address] [place] [phone] Tiana Sibley 10/02/2025 8:00 AM EST [facility] Home [facility] / [facility] [facility] [address] [place] [address] Daksha Yates 10/02/2025 12:30 PM EST [facility] Home [facility] / [facility] [address] [place] [address] Daksha Yates 10/02/2025 5:30 PM EST [facility] Home [facility] / [facility] [address] [place] [phone] Daksha Yates 10/03/2025 8:00 AM EST [facility] Home [facility] / [facility] [address] [place] [phone] Melissa Raza 10/03/2025 12:30 PM EST [facility] Home [facility] / [facility] [address] [place] [phone] Melissa Raza 10/03/2025 5:30 PM EST [facility] Home [facility] / [facility] [address] [place] [phone] Daksha Yates 10/04/2025 8:00 AM EST [facility] Home [facility] / [facility] [address] [place] [address] Tiana Sibley 10/04/2025 12:30 PM EST [facility] Home [facility] / [facility] [address] [place] [address] Lata Ford 10/04/2025 5:30 PM EST [facility] Home [facility] / [facility] [address] [place] [address] Daksha Yates 10/05/2025 8:00 AM EST [facility] Home [facility] / [facility] [address] [place] [address] Melissa Raza 10/05/2025 12:30 PM EST [facility] Home [facility] / [facility] [address] [place] [address] Melissa Raza 10/05/2025 5:30 PM EST [facility] Home [facility] / [facility] [address] [place] [address] Daksha Yates 10/06/2025 8:00 AM EST [facility] Home [facility] / [facility] [address] [place] [phone] Tiana Sibley 10/06/2025 12:30 PM EST [facility] Home [facility] / [facility] [address] [place] [phone] [facility] 10/06/2025 5:30 PM EST [facility] Home [facility] / [facility] [address] [place] [address] [facility] 10/07/2025 8:30 AM EST [facility] Home [facility] / [facility] [address] [place] [address] Tiana Sibley 10/07/2025 12:30 PM EST [facility] Home [facility] / [facility] [address] [place] [address] Daksha Yates 10/07/2025 5:30 PM EST [facility] Home [facility] / [facility] [address] [place] [address] Tiana Sibley 10/08/2025 8:30 AM EST [facility] Home [facility] / [facility] [address] [place] [phone] Tiana Sibley 10/08/2025 12:30 PM EST [facility] Home [facility] / [facility] [address] [place] [phone] Tiana Sibley 10/08/2025 5:00 PM EST [facility] Home [facility] / [facility] [address] [place] [phone] Tiana Sibley 10/09/2025 8:30 AM EST [facility] Home [facility] / [facility] [address] [place] [phone] Brigida Hendricks 10/09/2025 12:30 PM EST [facility] Home [facility] / [facility] [address] [place] [phone] Brigida Hendricks 10/09/2025 5:30 PM EST [facility] Home [facility] / [facility] [address] [place] [phone] Brigida Hendricks 10/10/2025 8:00 AM EST [facility] Home [facility] / [facility] [address] [place] [phone] Melissa Raza 10/10/2025 12:30 PM EST [facility] Home [facility] / [facility] [address] [place] [phone] Melissa Raza 10/10/2025 5:30 PM EST [facility] Home [facility] / [facility] [address] [place] [address] Daksha Yates 10/11/2025 8:00 AM EST [facility] Home [facility] / [facility] [address] [place] [address] Tiana Sibley 10/11/2025 12:30 PM EST [facility] Home [facility] / [facility] [address] [place] [phone] Lata Ford 10/11/2025 5:30 PM EST [facility] Home [facility] / [facility] [address] [place] [phone] Daksha Yates 10/12/2025 8:00 AM EST [facility] Home [facility] / [facility] [address] [place] [phone] Melissa Raza 10/12/2025 12:30 PM EST [facility] Home [facility] / [facility] [address] [place] [phone] Melissa Raza 10/12/2025 5:30 PM EST [facility] Home [facility] / [facility] [address] [place] [phone] Daksha Yates 10/13/2025 8:00 AM EST [facility] Home [facility] / [facility] [address] [place] [phone] Tiana Sibley 10/13/2025 12:30 PM EST [facility] Home [facility] / [facility] [address] [place] [phone] Daksha Yates 10/13/2025 5:30 PM EST [facility] Home [facility] / [facility] [address] [place] [address] Daksha Yates 10/14/2025 8:30 AM EST [facility] Home [facility] / [facility] [address] [place] [address] Tiana Sibley 10/14/2025 12:30 PM EST [facility] Home [facility] / [facility] [address] [place] [address] Daksha Yates 10/14/2025 5:30 PM EST [facility] Home [facility] / [facility] [address] [place] [phone] Tiana Sibley 10/15/2025 8:30 AM EST [facility] Home [facility] / [facility] [address] [place] [phone] Tiana Sibley 10/15/2025 12:30 PM EST [facility] Home [facility] / [facility] [address] [place] [phone] Tiana Sibley 10/15/2025 5:30 PM EST [facility] Home [facility] / [facility] [address] [place] [phone] Tiana Sibley 10/16/2025 8:00 AM EST [facility] Home [facility] / [facility] [address] [place] [phone] Daksha Yates 10/16/2025 12:30 PM EST [facility] / [facility] [address] [place] [phone] Daksha Yates 10/16/2025 5:30 PM EST [facility] Home [facility] / [facility] [address] [place] [phone] Daksha Yates 10/17/2025 8:00 AM EST [facility] Home [facility] / [facility] [address] [place] [phone] Melissa Raza 10/17/2025 12:30 PM EST [facility] / [facility] [address] [place] [phone] Melissa Raza 10/17/2025 5:30 PM EST [facility] Home [facility] / [facility] [address] [place] [phone] Daksha Yates 10/18/2025 8:00 AM EST [facility] Home [facility] / [facility] [address] [place] [phone] Tiana Sibley 10/18/2025 12:30 PM EST [facility] Home [facility] / [facility] [address] [place] [phone] Lata Ford 10/18/2025 5:30 PM EST [facility] Home [facility] / [facility] [address] [place] [phone] Daksha Yates 10/19/2025 8:00 AM EST [facility] Home [facility] / [facility] [address] [place] [phone] Melissa Raza 10/19/2025 12:30 PM EST [facility] / [facility] [address] [place] [phone] Melissa Raza 10/19/2025 5:30 PM EST [facility] / [facility] [address] [place] [address] Daksha Yates 10/20/2025 8:00 AM EST [facility] Home [facility] / [facility] [address] [place] [address] Tiana Sibley 10/20/2025 12:30 PM EST [facility] / [facility] [address] [place] [phone] Daksha Yates 10/20/2025 5:30 PM EST [facility] Home [facility] / [facility] [address] [place] [phone] Daksha Yates 10/21/2025 8:30 AM EST [facility] / [facility] [address] [place] [phone] Tiana Sibley 10/21/2025 12:30 PM EST [facility] / [facility] [address] [place] [phone] Daksha Yates 10/21/2025 5:30 PM EST [facility] / [facility] [address] [place] [phone] Tiana Sibley 10/22/2025 8:30 AM EST [facility] / [facility] [address] [place] [phone] Tiana Sibley 10/22/2025 12:30 PM EST [facility] / [facility] [address] [place] [phone] Tiana Sibley 10/22/2025 5:00 PM EST [facility] [address] [place] [address] Tiana Sibley 10/23/2025 8:30 AM EST [facility] / [facility] [address] [place] [phone] Brigida Hendricks 10/23/2025 12:30 PM EST [facility] / [facility] [address] [place] [phone] Brigida Hendricks 10/23/2025 5:30 PM EST [facility] / [facility] [address] [place] [phone] Brigida Hendricks Health Maintenance Due Date Last Done Comments Zoster Vaccines (1 of 2) 1998 RSV Immunization Adult Patients (1 - 1-dose 75+ series) 2023 DTaP,Tdap,and Td Vaccines (2 - Td or Tdap) 10/08/2023 10/08/2013 Falls Risk Assessment 09/08/2024 Hepatitis C Screening 09/08/2024 Social Influencers of Health Screening 09/08/2024 COVID-19 Vaccine (4 - 2024-2 6 season) 2025 02/13/2022, 10/09/2021, 02/14/2021 Influenza Vaccine (#1) 2025 Hypertension/CHF/CAD Annual BMP Blood Test 09/27/2025 09/27/2024 Cholesterol Screening (Lipid Panel) 10/17/2028 10/17/2023 Pneumococcal Vaccine: 50+ Years Completed 10/09/2021 Depression Screening Completed 03/25/2025 HIB Vaccines Aged Out No longer eligi [...] Most Recently Relevant to Health Maintenance [place] [address] [address] [place] [address] HEALTH * Guarantor: [facility] Account Type Relation to Patient Date of Phone Billing Address DEAN MORAN ARACELY [place] [address] [facility] Advance Directives Documents on File Type Date 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
--- OUTSIDE RECORDS SUMMARY | 2025-08-24 06:54 | XMS_ITS ---
Author Organization [facility] [place] [address] Phone Care Team Providers Care Director Strategy Name Role Phone Reyna Zuniga RASCHEL KNITTING MACHINE OPERATOR Primary Care Provider [phone] [facility] Status:Enrolled (Active) Start date:06/15/2025 Enrollment date:06/15/2025 Related program episode:Program of All-Inclusive Care for the Elderly (Active) Case Team Name Relationship Phone Anne-Marie JOYA(Responsible Staff) Registered Nurse Continued Care and Services Coordination
--- OUTSIDE RECORDS SUMMARY | 2025-08-24 06:54 | XMS_ITS ---
Author Organization [facility] [place] Address [facility] [place] [address] Phone Care Team Providers Care Insurance Business Analyst Name Role Phone Reyna Zuniga ARCHIVAL RECORDS CLERK Primary Care Provider [phone] Program of All-Inclusive Care for the Elderly Status:Enrolled (Active) Start date:10/06/2023 Enrollment date:10/06/2023 Related social drivers of health:Housing Instability, Financial Risk, Transportation, Social Isolation, Food Risk Related service episodes:[facility] (Active) Case Team Name Relationship Phone Juventino Del Angel ARCHIVAL RECORDS CLERK Nurse Practitioner [phone] Vy Kapadia RN Conduit Mechanic Antonio Andrade OT Occupational Therapist Matt Moreno RN Registered Nurse Anika Abarca RD Dietitijosh Balderas CONTRACT LEAD Steam Table Attendant Elis Paniagua RN Conduit Mechanic Stephanie Allen [facility] Steam Table Attendant Chadwick [facility] Jessica Roman PT Physical Therapist Alvina PARTIDAW Steam Table Attendant Fede Rock PT Physical Therapist Ilsa Frias MD Primary Care Provider Continued Care and Services Coordination
--- OUTSIDE RECORDS SUMMARY | 2025-08-24 06:54 | XMS_ITS | Encounter Summary ---
Author Organization [facility] Address [address] [place] [address] Care Team Providers Care Patient Registrar Name Role Phone Reyna Zuniga NP Primary Care Provider [phone] Encounter Details Date Type Department Care Team (Late st Contact Info) Description 08/18/2025 PACE Fall [facility] [place] Occupational Therapy [address] [place] [phone] Antonio Andrade OT Social History Tobacco Use Types Packs/Day Years Used Date Smoking Tobacco: Former Cigarettes Smokeless Tobacco: Never Comments:Ex-smoker Sex and Gender Information Value Date Recorded Sex Assigned at Not on file Legal Sex Male 9:32 AM EST Gender Identity Not on file Sexual Orientation Not on file documented as of this encounter Progress Notes * Antonio Andrade OT - 08/18/2025 2:49 PM EST Camera in the home captured par getting up from fall, however did not capture fall itself. Angel's son to adjust camera settings in attempt to capture future falls. Angel's son provided par with new slippers as slippers he was wearing at the time of the fall were ill-fitting. Per angel's son, heels stuckout a couple inches. Par denied any symptoms associated with orthostatic hypotension pre or post fall. documented in this encounter Plan of Treatment Upcoming Encounters Date Type Department Care Team (Late st Contact Info) Description 08/24/2025 8:00 AM EST PACE Home Care / [facility] [address] [place] [phone] Melissa Raza 08/24/2025 12:30 PM EST PACE Home Care / P[facility] Home Visit [facility] [address] [place] [phone] Melissa Raza 08/24/2025 1:00 PM EST Office Visit [facility] [address] [place] [phone] Ilsa Frias MD [address] [place] [phone] 08/24/2025 5:30 PM EST PACE Home Care / PACE Home Visit [facility] [address] [place] [phone] Daksha Yates 08/25/2025 7:00 AM EST PACE Home Care / PACE Home Visit [facility] [address] [place] [phone] Tiana Sibley 08/25/2025 12:30 PM EST PACE Home Care / PACE Home Visit [facility] [address] [place] [phone] Daksha Yates 08/25/2025 5:30 PM EST PACE Home Care / PACE Home Visit [facility] [address] [place] [phone] Daksha Yates 08/26/2025 8:30 AM EST PACE Home Care / PACE Home Visit [facility] [address] [place] [phone] Tiana Sibley 08/26/2025 12:00 PM EST PACE Home Care / [facility] [address] [place] [address] Jesse Alfred 08/26/2025 5:30 PM EST PACE Home Care / [facility] [address] [place] [address] Tiana Sibley 08/27/2025 8:00 AM EST PACE Home Care / [facility] [address] [place] [phone] Daksha Yates 08/27/2025 1:00 PM EST PACE Home Care / [facility] [address] [place] [phone] Tiana Sibley 08/27/2025 5:00 PM EST PACE Home Care / [facility] [address] [place] [phone] Daksha Yates 08/28/2025 8:00 AM EST PACE Home Care / [facility] [address] [place] [phone] Daksha Yates 08/28/2025 12:30 PM EST PACE Home Care / [facility] [place] [facility] [address] [place] [phone] Jesse Alfred 08/28/2025 4:30 PM EST PACE Home Care / [facility] [address] [place] [phone] Daksha Yates 08/29/2025 8:00 AM EST PACE Home Care / [facility] [facility] [place] [facility] [address] [place] [phone] Melissa Raza 08/29/2025 12:30 PM EST PACE Home Care / [facility] [address] [place] [address] Melissa Raza 08/29/2025 5:30 PM EST PACE Home Care / [facility] [address] [place] [phone] Daksha Yates 08/30/2025 8:00 AM EST PACE Home Care / [facility] [address] [place] [phone] Tiana Sibley 08/30/2025 12:30 PM EST PACE Home Care / [facility] [address] [place] [phone] Lata Ford 08/30/2025 5:30 PM EST PACE Home Care / [place] [facility] [address] [place] [phone] Daksha Yates 08/31/2025 8:30 AM EST PACE Home Care / [facility] [facility] [place] [facility] [address] [place] [phone] Melissa Raza 08/31/2025 12:30 PM EST PACE Home Care / [facility] [address] [place] [phone] Melissa Raza 08/31/2025 5:00 PM EST PACE Home Care / [facility] [address] [place] [phone] Daksha Yates 09/01/2025 8:30 AM EST PACE Home Care / [facility] [address] [place] [phone] Tiana Sibley 09/01/2025 12:30 PM EST PACE Home Care / [facility] [place] [facility] [address] [place] [address] Daksha Yates 09/01/2025 5:30 PM EST PACE Home Care / [facility] Visit [facility] [address] [place] [address] Daksha Yates 09/02/2025 8:30 AM EST PACE Home Care / [facility] [place] [facility] [address] [place] [address] Tiana Sibley 09/02/2025 1:30 PM EST PACE Home Care / [facility] [address] [place] [phone] Tiana Sibley 09/02/2025 4:00 PM EST PACE Home Care / [facility] [address] [place] [address] Tiana Sibley 09/03/2025 8:30 AM EST PACE Home Care / [facility] [address] [place] [address] Tiana Sibley 09/03/2025 12:30 PM EST PACE Home Care / [facility] [place] [facility] [address] [place] [address] Tiana Sibley 09/03/2025 5:30 PM EST PACE Home Care / [facility] [address] [place] [address] Tiana Sibley 09/04/2025 8:00 AM EST PACE Home Care / [facility] [address] [place] [address] Daksha Yates 09/04/2025 12:30 PM EST PACE Home Care / [facility] [address] [place] [address] Daksha Yates 09/04/2025 5:30 PM EST PACE Home Care / [facility] [address] [place] [address] Daksha Yates 09/05/2025 8:00 AM EST PACE Home Care / [facility] [address] [place] [address] Melissa Raza 09/05/2025 12:30 PM EST PACE Home Care / [facility] [address] [place] [phone] Melissa Raza 09/05/2025 5:30 PM EST PACE Home Care / [facility] [address] [place] [phone] Daksha Yates 09/06/2025 8:00 AM EST PACE Home Care / [facility] [address] [place] [phone] Tiana Sibley 09/06/2025 12:30 PM EST PACE Home Care / [facility] [address] [place] [phone] Lata Ford 09/06/2025 5:30 PM EST PACE Home Care / [facility] [address] [place] [phone] Daksha Yates 09/07/2025 8:00 AM EST PACE Home Care / [facility] [place] [facility] [address] [place] [address] Melissa Raza 09/07/2025 12:30 PM EST PACE Home Care / [facility] Visit [facility] [address] [place] [address] Melissa Raza 09/07/2025 5:30 PM EST PACE Home Care / P[facility] Visit [facility] [address] [place] [address] Daksha Yates 09/08/2025 8:00 AM EST PACE Home Care / P[facility] Visit [facility] [address] [place] [phone] Tiana Sibley 09/08/2025 12:30 PM EST PACE Home Care / P[facility] Visit [facility] [address] [place] [phone] Daksha Yates 09/08/2025 5:30 PM EST PACE Home Care / P[facility] Visit [facility] [address] [place] [phone] Daksha Yates 09/09/2025 8:30 AM EST PACE Home Care / P[facility] Visit [facility] [address] [place] [phone] Tiana Sibley 09/09/2025 12:30 PM EST PACE Home Care / P[facility] Visit [facility] [address] [place] [phone] Daksha Yates 09/09/2025 5:30 PM EST PACE Home Care / PACE Home Visit [facility] [address] [place] [phone] Tiana Sibley 09/10/2025 8:30 AM EST PACE Home Care / [facility] [address] [place] [address] Tiana Sibley 09/10/2025 12:30 PM EST PACE Home Care / [facility] [address] [place] [address] Tiana Sibley 09/10/2025 5:00 PM EST PACE Home Care / [facility] [address] [place] [phone] Tiana Sibley 09/11/2025 8:30 AM EST PACE Home Care / [facility] [address] [place] [phone] Brigida Hendricks 09/11/2025 12:30 PM EST PACE Home Care / [facility] [address] [place] [phone] Brigida Hendricks 09/11/2025 5:30 PM EST PACE Home Care / [facility] [address] [place] [phone] Brigida Hendricks 09/12/2025 8:00 AM EST PACE Home Care / [facility] [address] [place] [phone] Melissa Raza 09/12/2025 12:30 PM EST PACE Home Care / [facility] [address] [place] [phone] Melissa Raza 09/12/2025 5:30 PM EST PACE Home Care / [facility] [address] [place] [phone] Daksha Yates 09/13/2025 8:00 AM EST PACE Home Care / [facility] [address] [place] [address] Tiana Sibley 09/13/2025 12:30 PM EST PACE Home Care / [facility] [address] [place] [address] Lata Ford 09/13/2025 5:30 PM EST PACE Home Care / [facility] Visit [facility] [address] [place] [address] Daksha Yates 09/14/2025 8:00 AM EST PACE Home Care / [facility] Visit [facility] [address] [place] [address] Melissa Raza 09/14/2025 12:30 PM EST PACE Home Care / [facility] Visit [facility] [address] [place] [address] Melissa Raza 09/14/2025 5:30 PM EST PACE Home Care / [facility] Visit [facility] [address] [place] [phone] Daksha Yates 09/15/2025 8:00 AM EST PACE Home Care / [facility] Visit [facility] [address] [place] [address] Tiana Sibley 09/15/2025 12:30 PM EST PACE Home Care / [facility] [address] [place] [phone] Daksha Yates 09/15/2025 5:30 PM EST PACE Home Care / [facility] [address] [place] [address] Daksha Yates 09/16/2025 8:30 AM EST PACE Home Care / [facility] [address] [place] [address] Tiana Sibley 09/16/2025 12:30 PM EST PACE Home Care / [facility] [address] [place] [phone] Trudy [facility] 09/16/2025 5:30 PM EST PACE Home Care / [facility] [address] [place] [phone] Tiana Sibley 09/17/2025 8:30 AM EST PACE Home Care / [facility] [place] [facility] [address] [place] [phone] Tiana Sibley 09/17/2025 12:30 PM EST PACE Home Care / [facility] [address] [place] [phone] Tiana Sibley 09/17/2025 5:30 PM EST PACE Home Care / [facility] [address] [place] [phone] Tiana Sibley 09/18/2025 8:00 AM EST PACE Home Care / [facility] [address] [place] [phone] Dansereadaniel [facility] 09/18/2025 12:30 PM EST PACE Home Care / [facility] [address] [place] [phone] Dansereadaniel [facility] 09/18/2025 5:30 PM EST PACE Home Care / [facility] [address] [place] [phone] Daksha Yates 09/19/2025 8:00 AM EST PACE Home Care / [facility] [address] [place] [address] Melissa Raza 09/19/2025 12:30 PM EST PACE Home Care / [facility] [address] [place] [address] Melissa Raza 09/19/2025 5:30 PM EST PACE Home Care / [facility] [address] [place] [address] Daksha Yates 09/20/2025 8:00 AM EST PACE Home Care / [facility] [address] [place] [phone] Tiana Sibley 09/20/2025 12:30 PM EST PACE Home Care / [facility] [address] [place] [phone] Lata Ford 09/20/2025 5:30 PM EST PACE Home Care / [facility] [address] [place] [phone] Daksha Yates 09/21/2025 8:00 AM EST PACE Home Care / [facility] [address] [place] [address] Melissa Raza 09/21/2025 12:30 PM EST PACE Home Care / [facility] [address] [place] [phone] Melissa Raza 09/21/2025 5:30 PM EST PACE Home Care / [facility] [address] [place] [phone] Daksha Yates 09/22/2025 8:00 AM EST PACE Home Care / [facility] [address] [place] [address] Tiana Sibley 09/22/2025 12:30 PM EST PACE Home Care / [facility] [address] [place] [address] [facility]/22/[facility]25 5:30 PM EST PACE Home Care / [facility] [address] [place] [phone] [facility]/23/2025 8:30 AM EST PACE Home Care / [facility] [address] [place] [phone] Tiana Sibley 09/23/2025 12:30 PM EST PACE Home Care / [facility] [address] [place] [phone] [facility]/23/2025 5:30 PM EST PACE Home Care / [facility] [place] [facility] [address] [place] [phone] Tiana Sibley 09/24/2025 8:30 AM EST PACE Home Care / [facility] [place] [facility] [address] [place] [phone] Tiana Sibley 09/24/2025 12:30 PM EST PACE Home Care / [facility] [address] [place] [phone] Tiana Sibley 09/24/2025 5:00 PM EST PACE Home Care / [facility] [address] [place] [address] Tiana Sibley 09/25/2025 8:30 AM EST PACE Home Care / [facility] [address] [place] [address] Brigida Hendricks 09/25/2025 12:30 PM EST PACE Home Care / [facility] [address] [place] [address] Brigida Hendricks 09/25/2025 5:30 PM EST PACE Home Care / [facility] [address] [place] [phone] Brigida Hendricks 09/26/2025 8:00 AM EST PACE Home Care / [facility] [address] [place] [phone] Melissa Raza 09/26/2025 12:30 PM EST PACE Home Care / [facility] [address] [place] [phone] Melissa Raza 09/26/2025 5:30 PM EST PACE Home Care / [facility] [address] [place] [phone] Daksha Yates 09/27/2025 8:00 AM EST PACE Home Care / [facility] [address] [place] [address] Tiana Sibley 09/27/2025 12:30 PM EST PACE Home Care / [facility] [place] [facility] [address] [place] [address] Lata Ford 09/27/2025 5:30 PM EST PACE Home Care / [facility] [address] [place] [address] Daksha Yates 09/28/2025 8:00 AM EST PACE Home Care / [facility] [address] [place] [address] Melissa Raza 09/28/2025 12:30 PM EST PACE Home Care / [facility] [address] [place] [address] Melissa Raza 09/28/2025 5:30 PM EST PACE Home Care / [facility] [address] [place] [phone] Daksha Yates 09/29/2025 8:00 AM EST PACE Home Care / [facility] [place] [facility] [address] [place] [phone] Tiana Sibley 09/29/2025 12:30 PM EST PACE Home Care / [facility] [address] [place] [phone] Daksha Yates 09/29/2025 5:30 PM EST PACE Home Care / [facility] [address] [place] [phone] Daksha Yates 09/30/2025 8:30 AM EST PACE Home Care / [facility] [address] [place] [phone] Tiana Sibley 09/30/2025 12:30 PM EST PACE Home Care / [facility] [address] [place] [phone] Daksha Yates 09/30/2025 5:30 PM EST PACE Home Care / [facility] [address] [place] [address] Tiana Sibley 10/01/2025 8:30 AM EST PACE Home Care / [facility] [address] [place] [address] Tiana Sibley 10/01/2025 12:30 PM EST PACE Home Care / [facility] [address] [place] [address] Tiana Sibley 10/01/2025 5:30 PM EST PACE Home Care / [facility] Visit [facility] [address] [place] [phone] Tiana Sibley 10/02/2025 8:00 AM EST PACE Home Care / [facility] Visit [facility] [address] [place] [phone] [facility]/02/[facility] 12:30 PM EST PACE [facility] / [facility] [address] [place] [phone] Trudy, [facility] 10/02/2025 5:30 PM EST PACE Home Care / [facility] [address] [place] [phone] Trudy, [facility] 10/03/2025 8:00 AM EST PACE Home Care / [facility] [address] [place] [phone] Melissa Raza 10/03/2025 12:30 PM EST PACE Home Care / [facility] [address] [place] [phone] Melissa Raza 10/03/2025 5:30 PM EST PACE Home Care / [facility] [address] [place] [address] Daksha Yates 10/04/2025 8:00 AM EST PACE Home Care / [facility] [address] [place] [address] Tiana Sibley 10/04/2025 12:30 PM EST PACE Home Care / [facility] [address] [place] [address] Lata Ford 10/04/2025 5:30 PM EST PACE Home Care / [facility] [address] [place] [phone] Daksha Yates 10/05/2025 8:00 AM EST PACE Home Care / [facility] [address] [place] [phone] Melissa Raza 10/05/2025 12:30 PM EST PACE Home Care / [facility] [address] [place] [phone] Melissa Raza 10/05/2025 5:30 PM EST PACE Home Care / [facility] [address] [place] [phone] Daksha Yates 10/06/2025 8:00 AM EST PACE Home Care / [facility] [address] [place] [phone] Tiana Sibley 10/06/2025 12:30 PM EST PACE Home Care / [facility] [address] [place] [phone] Daksha Yates 10/06/2025 5:30 PM EST PACE Home Care / [facility] [address] [place] [address] Daksha Yates 10/07/2025 8:30 AM EST PACE Home Care / [facility] [address] [place] [address] Tiana Sibley 10/07/2025 12:30 PM EST PACE Home Care / [facility] [address] [place] [phone] Daksha Yates 10/07/2025 5:30 PM EST PACE Home Care / [facility] [address] [place] [phone] Tiana Sibley 10/08/2025 8:30 AM EST PACE Home Care / [facility] [address] [place] [phone] Tiana Sibley 10/08/2025 12:30 PM EST PACE Home Care / [facility] [address] [place] [phone] Tiana Sibley 10/08/2025 5:00 PM EST PACE Home Care / [facility] [address] [place] [phone] Tiana Sibley 10/09/2025 8:30 AM EST PACE Home Care / [facility] [address] [place] [phone] Brigida Hendricks 10/09/2025 12:30 PM EST PACE Home Care / [facility] [address] [place] [address] [phone] Brigida Hendricks 10/09/2025 5:30 PM EST [facility] [address] [place] [phone] Brigida Hendricks 10/10/2025 8:00 AM EST [facility] / [facility] [address] [place] [phone] Melissa Raza 10/10/2025 12:30 PM EST [facility] / [facility] [address] [place] [phone] Melissa Raza 10/10/2025 5:30 PM EST [facility] / [facility] [address] [place] [phone] Daksha Yates 10/11/2025 8:00 AM EST [facility] / [facility] [address] [place] [phone] Tiana Sibley 10/11/2025 12:30 PM EST [facility] / [facility] [address] [place] [phone] Lata Ford 10/11/2025 5:30 PM EST [facility] / [facility] [address] [place] [phone] Daksha Yates 10/12/2025 8:00 AM EST [facility] / [facility] [address] [place] [phone] Melissa Raza 10/12/2025 12:30 PM EST [facility] / [facility] [address] [place] [phone] Melissa Raza 10/12/2025 5:30 PM EST [facility] / [facility] [address] [place] [phone] Daksha Yates 10/13/2025 8:00 AM EST [facility] / [facility] [address] [place] [phone] Tiana Sibley 10/13/2025 12:30 PM EST [facility] / [facility] [address] [place] [phone] Daksha Yates 10/13/2025 5:30 PM EST [facility] / [facility] [address] [place] [phone] Daksha Yates 10/14/2025 8:30 AM EST [facility] / [facility] [address] [place] [phone] Tiana Sibley 10/14/2025 12:30 PM EST [facility] / [facility] [address] [place] [phone] Daksha Yates 10/14/2025 5:30 PM EST [facility] / [facility] [address] [place] [phone] Tiana Sibley 10/15/2025 8:30 AM EST [facility] / [facility] [address] [place] [phone] Tiana Sibley 10/15/2025 12:30 PM EST [facility] / [facility] [address] [place] [phone] Tiana Sibley 10/15/2025 5:30 PM EST [facility] / [facility] [address] [place] [phone] Tiana Sibley 10/16/2025 8:00 AM EST [facility] / [facility] [address] [place] [phone] Daksha Yates 10/16/2025 12:30 PM EST [facility] / [facility] [address] [place] [phone] Daksha Yates 10/16/2025 5:30 PM EST [facility] / [facility] [address] [place] [phone] Daksha Yates 10/17/2025 8:00 AM EST [facility] / [facility] [address] [place] [phone] Melissa Raza 10/17/2025 12:30 PM EST [facility] / [facility] [address] [place] [phone] Melissa Raza 10/17/2025 5:30 PM EST [facility] / [facility] [address] [place] [phone] Daksha Yates 10/18/2025 8:00 AM EST [facility] / [facility] [address] [place] [phone] Tiana Sibley 10/18/2025 12:30 PM EST [facility] / [facility] [address] [place] [phone] Lata Ford 10/18/2025 5:30 PM EST [facility] / [facility] [address] [place] [phone] Daksha Yates 10/19/2025 8:00 AM EST [facility] / [facility] [address] [place] [phone] Melissa Raza 10/19/2025 12:30 PM EST [facility] / [facility] [address] [place] [phone] Melissa Raza 10/19/2025 5:30 PM EST [facility] / [facility] [address] [place] [phone] Daksha Yates 10/20/2025 8:00 AM EST [facility] / [facility] [address] [place] [phone] Tiana Sibley 10/20/2025 12:30 PM EST [facility] / [facility] [address] [place] [phone] Daksha Yates 10/20/2025 5:30 PM EST [facility] / [facility] [address] [place] [phone] Daksha Yates 10/21/2025 8:30 AM EST [facility] / [facility] [address] [place] [phone] Tiana Sibley 10/21/2025 12:30 PM EST [facility] / [facility] [address] [place] [phone] MeliadanielShilpichristian 10/21/2025 5:30 PM EST [facility] / [facility] [address] [place] [phone] Tiana Sibley 10/22/2025 8:30 AM EST [facility] / [facility] [address] [place] [phone] Tiana Sibley 10/22/2025 12:30 PM EST [facility] / [facility] [address] [place] [phone] Tiana Sibley 10/22/2025 5:00 PM EST [facility] / [facility] [address] [place] [phone] Tiana Sibley 10/23/2025 8:30 AM EST [facility] / [facility] [address] [place] [phone] Brigida Hendricks 10/23/2025 12:30 PM EST [facility] / [facility] [address] [place] [phone] Brigida Hendricks 10/23/2025 5:30 PM EST [facility] / [facility] [address] [place] [phone] Brigida Hendricks documented as of this encounter Visit Diagnoses Not on filedocumented in this encounter Additional Health Concerns Assessment Noted Time PHQ-9 Depression Total Score: 3 03/25/20 25 11:12 AM EDT documented as of this encounter Care Teams Patient Registrar Relationship Specialty Start Date End Date Reyna Zuniga NP [address] [address] PCP - General Family Medicine 11/06/24 documented as of this encounter
--- OUTSIDE RECORDS SUMMARY | 2025-08-24 06:54 | XMS_ITS | Encounter Summary ---
Author Organization [facility] Address [id number] [place] [phone] Care Team Providers Care Survey Supervisor Name Role Phone Reyna Zuniga PORTFOLIO ASSISTANT Primary Care Provider [phone] Reason for Visit * Reason Onset Date Comments Clinical 04/03/2025 Par called to re port he does not want the shingles vaccine. IDT to f/u as needed. Encounter Details Date Type Department Care Team (Late st Contact Info) Description 04/03/2025 [place] On-[facility] [address] [place] [phone] Reyna Zuniga, GIOVANNA [address] [id number] Social History Tobacco Use Types Packs/Day Years Used Date Smoking Tobacco: Former Cigarettes Smokeless Tobacco: Never Comments:Ex-smoker Sex and Gender Information Value Date Recorded Sex Assigned at Not on file Legal Sex Male 9:32 AM EST Gender Identity Not on file Sexual Orientation Not on file documented as of this encounter Progress Notes * Brenda Adhikari - 04/04/2025 8:34 AM EDT IDT aware. documented in this encounter Plan of Treatment Upcoming Encounters Date Type Department Care Team (Late st Contact Info) Description 08/24/2025 8:00 AM EST [facility] [address] [place] [phone] Melissa Raza 08/24/2025 12:30 PM EST [facility] Home [facility] / [facility] Home Visit [facility] [address] [place] [phone] Melissa Raza 08/24/2025 1:00 PM EST Office Visit [facility] [address] [place] [phone] Ilsa Frias MD [address] [address] 08/24/2025 5:30 PM EST [facility] Home Care / [facility] Home Visit [facility] [address] [place] [phone] Daksha Yates 08/25/2025 7:00 AM EST P[facility] Home Care / [facility] Home Visit [facility] [address] [place] [phone] Tiana Sibley 08/25/2025 12:30 PM EST [facility] Home Care / [facility] Home Visit [facility] [address] [place] [phone] Daksha Yates 08/25/2025 5:30 PM EST P[facility] Home Care / [facility] Home Visit [facility] [address] [place] [phone] Daksha Yates 08/26/2025 8:30 AM EST [facility] Home Care / [facility] Home Visit [facility] [address] [place] [phone] Tiana Sibley 08/26/2025 12:00 PM EST [facility] Home [facility] / [facility] Home Visit [facility] [address] [place] [address] Jesse Alfred 08/26/2025 5:30 PM EST [facility] Home Care / [facility] Home Visit [facility] [address] [place] [address] Tiana Sibley 08/27/2025 8:00 AM EST P[facility] Home Care / [facility] Home Visit [facility] [address] [place] [address] Daksha Yates 08/27/2025 1:00 PM EST PACE Home Care / P[facility] Home Visit [facility] [address] [place] [phone] Tiana Sibley 08/27/2025 5:00 PM EST P[facility] Home Care / [facility] Home Visit [facility] [address] [place] [phone] Daksha Yates 08/28/2025 8:00 AM EST P[facility] Home Care / [facility] Home Visit [facility] [address] [place] [phone] Daksha Yates 08/28/2025 12:30 PM EST P[facility] Home Care / [facility] Home Visit [facility] [address] [place] [phone] Jesse Alfred 08/28/2025 4:30 PM EST P[facility] Home [facility] / [facility] [address] [place] [phone] Daksha Yates 08/29/2025 8:00 AM EST P[facility] Home Care / [facility] [address] [place] [phone] Melissa Raza 08/29/2025 12:30 PM EST [facility] Home [facility] / [facility] [address] [place] [address] Melissa Raza 08/29/2025 5:30 PM EST P[facility] Home [facility] / [facility] [address] [place] [phone] Daksha Yates 08/30/2025 8:00 AM EST P[facility] Home [facility] / [facility] [address] [place] [phone] Tiana Sibley 08/30/2025 12:30 PM EST [facility] Home [facility] / [facility] [address] [place] [phone] Lata Ford 08/30/2025 5:30 PM EST [facility] Home [facility] / [facility] [address] [place] [phone] Daksha Yates 08/31/2025 8:30 AM EST [facility] Home [facility] / [facility] [address] [place] [phone] Melissa Raza 08/31/2025 12:30 PM EST [facility] Home [facility] / [facility] [address] [place] [phone] Melissa Raza 08/31/2025 5:00 PM EST [facility] Home [facility] / [facility] [address] [place] [phone] Daksha Yates 09/01/2025 8:30 AM EST [facility] Home [facility] / [facility] [address] [place] [phone] Tiana Sibley 09/01/2025 12:30 PM EST [facility] Home [facility] / [facility] [address] [place] [address] Daksha Yates 09/01/2025 5:30 PM EST P[facility] Home [facility] / [facility] [address] [place] [phone] Daksha Yates 09/02/2025 8:30 AM EST P[facility] Home [facility] / [facility] [address] [place] [phone] Tiana Sibley 09/02/2025 1:30 PM EST P[facility] Home Care / [facility] [address] [place] [phone] Tiana Sibley 09/02/2025 4:00 PM EST P[facility] Home [facility] / [facility] [address] [place] [phone] Tiana Sibley 09/03/2025 8:30 AM EST P[facility] Home [facility] / [facility] [address] [place] [phone] Tiana Sibley 09/03/2025 12:30 PM EST P[facility] Home [facility] / [facility] [place] [facility] [address] [place] [phone] Tiana Sibley 09/03/2025 5:30 PM EST P[facility] Home [facility] / [facility] [address] [place] [phone] Tiana Sibley 09/04/2025 8:00 AM EST [facility] Home [facility] / [facility] [address] [place] [phone] Daksha Yates 09/04/2025 12:30 PM EST [facility] Home [facility] / [facility] [address] [place] [address] Daksha Yates 09/04/2025 5:30 PM EST [facility] Home [facility] / [facility] [address] [place] [address] Daksha Yates 09/05/2025 8:00 AM EST [facility] Home [facility] / [facility] [address] [place] [phone] Melissa Raza 09/05/2025 12:30 PM EST [facility] Home [facility] / [facility] [address] [place] [phone] Melissa Raza 09/05/2025 5:30 PM EST [facility] Home [facility] / [facility] [address] [place] [phone] [facility]/06/2025 8:00 AM EST [facility] / [facility] [address] [place] [phone] Tiana Sibley 09/06/2025 12:30 PM EST [facility] Home [facility] / [facility] [address] [place] [phone] Lata Ford 09/06/2025 5:30 PM EST [facility] Home [facility] / [facility] [address] [place] [phone] Daksha Yates 09/07/2025 8:00 AM EST [facility] Home [facility] / [facility] [address] [place] [phone] Melissa Raza 09/07/2025 12:30 PM EST P[facility] Home [facility] / [facility] [address] [place] [address] Melissa Raza 09/07/2025 5:30 PM EST [facility] Home [facility] / [facility] [address] [place] [address] Daksha Yates 09/08/2025 8:00 AM EST [facility] Home [facility] / [facility] [address] [place] [phone] Tiana Sibley 09/08/2025 12:30 PM EST P[facility] Home [facility] / [facility] [address] [place] [phone] Daksha Yates 09/08/2025 5:30 PM EST P[facility] Home [facility] / [facility] [address] [place] [phone] Daksha Yates 09/09/2025 8:30 AM EST [facility] Home [facility] / [facility] [address] [place] [phone] Tiana Sibley 09/09/2025 12:30 PM EST P[facility] Home [facility] / [facility] [address] [place] [phone] Daksha Yates 09/09/2025 5:30 PM EST [facility] Home [facility] / [facility] [address] [place] [phone] Tiana Sibley 09/10/2025 8:30 AM EST [facility] Home [facility] / [facility] [address] [place] [phone] Tiana Sibley 09/10/2025 12:30 PM EST [facility] Home [facility] / [facility] [address] [place] [address] Tiana Sibley 09/10/2025 5:00 PM EST [facility] Home [facility] / [facility] [address] [place] [address] Tiana Sibley 09/11/2025 8:30 AM EST [facility] Home [facility] / [facility] [address] [place] [address] Brigida Hendricks 09/11/2025 12:30 PM EST [facility] Home [facility] / [facility] [address] [place] [address] Brigida Hendricks 09/11/2025 5:30 PM EST [facility] Home [facility] / [facility] [address] [place] [phone] Brigida Hendricks 09/12/2025 8:00 AM EST [facility] Home [facility] / [facility] [address] [place] [phone] Melissa Raza 09/12/2025 12:30 PM EST [facility] Home [facility] / [facility] [address] [place] [address] Melissa Raza 09/12/2025 5:30 PM EST P[facility] Home [facility] / [facility] [address] [place] [phone] Daksha Yates 09/13/2025 8:00 AM EST [facility] Home [facility] / [facility] [address] [place] [address] Tiana Sibley 09/13/2025 12:30 PM EST [facility] Home [facility] / [facility] [address] [place] [address] Lata Ford 09/13/2025 5:30 PM EST P[facility] Home [facility] / [facility] [address] [place] [address] Daksha Yates 09/14/2025 8:00 AM EST [facility] Home [facility] / [facility] [address] [place] [address] Melissa Raza 09/14/2025 12:30 PM EST P[facility] Home [facility] / [facility] [address] [place] [phone] Melissa Raza 09/14/2025 5:30 PM EST [facility] Home [facility] / [facility] [address] [place] [phone] Daksha Yates 09/15/2025 8:00 AM EST [facility] Home [facility] / [facility] [address] [place] [address] Tiana Sibley 09/15/2025 12:30 PM EST [facility] Home [facility] / [facility] [address] [place] [phone] Daksha Yates 09/15/2025 5:30 PM EST [facility] Home [facility] / [facility] [address] [place] [address] Daksha Yates 09/16/2025 8:30 AM EST [facility] Home [facility] / [facility] [address] [place] [address] Tiana Sibley 09/16/2025 12:30 PM EST P[facility] Home Care / [facility] Visit [facility] [address] [place] [address] Daksha Yates 09/16/2025 5:30 PM EST P[facility] Home Care / [facility] Home Visit [facility] [address] [place] [address] Tiana Sibley 09/17/2025 8:30 AM EST P[facility] Home Care / [facility] Home Visit [facility] [address] [place] [address] Tiana Sibley 09/17/2025 12:30 PM EST P[facility] Home Care / [facility] Home Visit [facility] [address] [place] [address] Tiana Sibley 09/17/2025 5:30 PM EST P[facility] Home Care / [facility] Home Visit [facility] [address] [place] [phone] Tiana Sibley 09/18/2025 8:00 AM EST P[facility] Home Care / [facility] Home Visit [facility] [address] [place] [address] Daksha Yates 09/18/2025 12:30 PM EST [facility] Home [facility] / [facility] Home Visit [facility] [address] [place] [address] Daksha Yates 09/18/2025 5:30 PM EST P[facility] Home Care / [facility] Home Visit [facility] [address] [place] [phone] Daksha Yates 09/19/2025 8:00 AM EST [facility] Home [facility] / [facility] [address] [place] [address] Melissa Raza 09/19/2025 12:30 PM EST [facility] Home [facility] / [facility] [address] [place] [address] Melissa Raza 09/19/2025 5:30 PM EST [facility] Home [facility] / [facility] [address] [place] [address] Daksha Yates 09/20/2025 8:00 AM EST [facility] Home [facility] / [facility] [address] [place] [address] Tiana Sibley 09/20/2025 12:30 PM EST [facility] Home [facility] / [facility] [address] [place] [address] Lata Ford 09/20/2025 5:30 PM EST [facility] Home [facility] / [facility] [address] [place] [phone] Daksha Yates 09/21/2025 8:00 AM EST [facility] Home [facility] / [facility] [address] [place] [address] Melissa Raza 09/21/2025 12:30 PM EST [facility] Home [facility] / [facility] [address] [place] [phone] Melissa Raza 09/21/2025 5:30 PM EST [facility] Home [facility] / [facility] [address] [place] [address] Daksha Yates 09/22/2025 8:00 AM EST [facility] Home [facility] / [facility] [address] [place] [address] Tiana Sibley 09/22/2025 12:30 PM EST [facility] Home [facility] / [facility] [address] [place] [address] Daksha Yates 09/22/2025 5:30 PM EST [facility] Home [facility] / [facility] [address] [place] [address] Daksha Yates 09/23/2025 8:30 AM EST [facility] Home [facility] / [facility] [address] [place] [address] Tiana Sibley 09/23/2025 12:30 PM EST [facility] Home [facility] / [facility] [address] [place] [phone] Daksha Yates 09/23/2025 5:30 PM EST [facility] Home [facility] / [facility] [address] [place] [phone] Tiana Sibley 09/24/2025 8:30 AM EST [facility] Home [facility] / [facility] [address] [place] [address] Tiana Sibley 09/24/2025 12:30 PM EST [facility] Home [facility] / [facility] [address] [place] [phone] Tiana Sibley 09/24/2025 5:00 PM EST [facility] Home [facility] / [facility] [address] [place] [address] Tiana Sibley 09/25/2025 8:30 AM EST [facility] Home [facility] / [facility] [address] [place] [address] Brigida Hendricks 09/25/2025 12:30 PM EST [facility] Home [facility] / [facility] [address] [place] [address] Brigida Hendricks 09/25/2025 5:30 PM EST [facility] Home [facility] / [facility] [address] [place] [address] Brigida Hendricks 09/26/2025 8:00 AM EST [facility] Home [facility] / [facility] [address] [place] [address] Melissa Raza 09/26/2025 12:30 PM EST [facility] Home [facility] / [facility] [address] [place] [address] Melissa Raza 09/26/2025 5:30 PM EST [facility] Home [facility] / [facility] [place] [facility] [address] [place] [phone] Daksha Yates 09/27/2025 8:00 AM EST [facility] Home [facility] / [facility] [address] [place] [address] Tiana Sibley 09/27/2025 12:30 PM EST [facility] Home [facility] / [facility] [address] [place] [address] Lata Ford 09/27/2025 5:30 PM EST [facility] Home [facility] / [facility] [address] [place] [phone] Daksha Yates 09/28/2025 8:00 AM EST [facility] Home [facility] / [facility] [address] [place] [address] Melissa Raza 09/28/2025 12:30 PM EST [facility] Home [facility] / [facility] [address] [place] [address] Melissa Raza 09/28/2025 5:30 PM EST [facility] Home [facility] / [facility] [address] [place] [address] Daksha Yates 09/29/2025 8:00 AM EST [facility] Home [facility] / [facility] [address] [place] [phone] Tiana Sibley 09/29/2025 12:30 PM EST [facility] Home [facility] / [facility] [address] [place] [address] Daksha Yates 09/29/2025 5:30 PM EST [facility] Home [facility] / [facility] [address] [place] [phone] Daksha Yates 09/30/2025 8:30 AM EST [facility] Home [facility] / [facility] [address] [place] [address] Tiana Sibley 09/30/2025 12:30 PM EST [facility] Home [facility] / [facility] [address] [place] [address] Daksha Yates 09/30/2025 5:30 PM EST [facility] Home [facility] / [facility] [address] [place] [phone] Tiana Sibley 10/01/2025 8:30 AM EST [facility] Home [facility] / [facility] [place] [facility] [address] [place] [address] Tiana Sibley 10/01/2025 12:30 PM EST [facility] Home [facility] / [facility] [address] [place] [address] Tiana Sibley 10/01/2025 5:30 PM EST [facility] Home [facility] / [facility] [address] [place] [phone] Tiana Sibley 10/02/2025 8:00 AM EST [facility] / [facility] [address] [place] [address] Daksha Yates 10/02/2025 12:30 PM EST [facility] Home [facility] / [facility] [address] [place] [phone] Daksha Yates 10/02/2025 5:30 PM EST [facility] Home [facility] / [facility] [address] [place] [phone] Daksha Yates 10/03/2025 8:00 AM EST [facility] Home [facility] / [facility] [address] [place] [address] Melissa Raza 10/03/2025 12:30 PM EST [facility] Home [facility] / [facility] [address] [place] [phone] Melissa Raza 10/03/2025 5:30 PM EST [facility] Home [facility] / [facility] [address] [place] [address] [place] [address] Daksha Yates 10/04/2025 8:00 AM EST [facility] / [facility] [address] [place] [address] Tiana Sibley 10/04/2025 12:30 PM EST [facility] Home [facility] / [facility] [address] [place] [address] Lata Ford 10/04/2025 5:30 PM EST [facility] Home [facility] / [facility] [address] [place] [address] Daksha Yates 10/05/2025 8:00 AM EST [facility] / [facility] [address] [place] [address] Melissa Raza 10/05/2025 12:30 PM EST [facility] Home [facility] / [facility] [address] [place] [phone] Melissa Raza 10/05/2025 5:30 PM EST [facility] / [facility] [address] [place] [phone] Daksha Yates 10/06/2025 8:00 AM EST [facility] Home [facility] / [facility] [address] [place] [address] Tiana Sibley 10/06/2025 12:30 PM EST [facility] Home [facility] / [facility] [address] [place] [address] Daksha Yates 10/06/2025 5:30 PM EST [facility] Home [facility] / [facility] [address] [place] [address] Daksha Yates 10/07/2025 8:30 AM EST [facility] Home [facility] / [facility] [address] [place] [address] Tiana Sibley 10/07/2025 12:30 PM EST [facility] Home [facility] / [facility] [address] [place] [address] Daksha Yates 10/07/2025 5:30 PM EST [facility] Home [facility] / [facility] [address] [place] [address] Tiana Sibley 10/08/2025 8:30 AM EST [facility] Home [facility] / [facility] [address] [place] [address] Tiana Sibley 10/08/2025 12:30 PM EST [facility] Home [facility] / [facility] [address] [place] [phone] Tiana Sibley 10/08/2025 5:00 PM EST P[facility] Home [facility] / [facility] [address] [place] [phone] Tiana Sibley 10/09/2025 8:30 AM EST P[facility] Home [facility] / [facility] [address] [place] [phone] Brigida Hendricks 10/09/2025 12:30 PM EST [facility] / [facility] [address] [place] [address] Brigida Hendricks 10/09/2025 5:30 PM EST [facility] Home [facility] / [facility] [address] [place] [address] Brigida Hendricks 10/10/2025 8:00 AM EST P[facility] Home [facility] / [facility] [address] [place] [address] Melissa Raza 10/10/2025 12:30 PM EST P[facility] Home [facility] / [facility] [address] [place] [phone] Melissa Raza 10/10/2025 5:30 PM EST [facility] Home [facility] / [facility] [address] [place] [phone] Daksha Yates 10/11/2025 8:00 AM EST P[facility] Home [facility] / [facility] [place] [facility] [place] [facility] [address] [place] [phone] Tiana Sibley 10/11/2025 12:30 PM EST [facility] [address] [place] [phone] Lata Ford 10/11/2025 5:30 PM EST [facility] / [facility] [address] [place] [phone] Daksha Yates 10/12/2025 8:00 AM EST [facility] / [facility] [address] [place] [phone] Melissa Raza 10/12/2025 12:30 PM EST [facility] / [facility] [address] [place] [phone] Melissa Raza 10/12/2025 5:30 PM EST [facility] / [facility] [address] [place] [phone] Daksha Yates 10/13/2025 8:00 AM EST [facility] / [facility] [address] [place] [phone] Tiana Sibley 10/13/2025 12:30 PM EST [facility] / [facility] [address] [place] [phone] Daksha Yates 10/13/2025 5:30 PM EST [facility] / [facility] [address] [place] [phone] Daksha Yates 10/14/2025 8:30 AM EST [facility] / [facility] [address] [place] [phone] Tiana Sibley 10/14/2025 12:30 PM EST [facility] / [facility] [address] [place] [phone] Daksha Yates 10/14/2025 5:30 PM EST [facility] / [facility] [address] [place] [phone] Tiana Sibley 10/15/2025 8:30 AM EST [facility] / [facility] [address] [place] [phone] Tiana Sibley 10/15/2025 12:30 PM EST [facility] / [facility] [address] [place] [phone] Tiana Sibley 10/15/2025 5:30 PM EST [facility] / [facility] [address] [place] [phone] Tiana Sibley 10/16/2025 8:00 AM EST [facility] / [facility] [address] [place] [phone] Daksha Yates 10/16/2025 12:30 PM EST [facility] / [facility] [address] [place] [phone] Daksha Yates 10/16/2025 5:30 PM EST [facility] / [facility] [address] [place] [phone] Daksha Yates 10/17/2025 8:00 AM EST [facility] / [facility] [address] [place] [phone] Melissa Raza 10/17/2025 12:30 PM EST [facility] / [facility] [address] [place] [phone] Melissa Raza 10/17/2025 5:30 PM EST [facility] / [facility] [address] [place] [phone] Daksha Yates 10/18/2025 8:00 AM EST [facility] / [facility] [address] [place] [phone] Tiana Sibley 10/18/2025 12:30 PM EST [facility] / [facility] [address] [place] [phone] Lata Ford 10/18/2025 5:30 PM EST [facility] / [facility] [address] [place] [phone] Daksha Yates 10/19/2025 8:00 AM EST [facility] / [facility] [address] [place] [phone] Melissa Raza 10/19/2025 12:30 PM EST [facility] / [facility] [address] [place] [phone] Melissa Raza 10/19/2025 5:30 PM EST [facility] / [facility] [address] [place] [phone] [facility] 8:00 AM EST [facility] / [facility] [address] [place] [phone] Tiana Sibley 10/20/2025 12:30 PM EST [facility] / [facility] [address] [place] [phone] [facility]/20/[facility]25 5:30 PM EST [facility] / [facility] [address] [place] [phone] [facility]/21/2025 8:30 AM EST [facility] / [facility] [address] [place] [phone] Tiana Sibley 10/21/2025 12:30 PM EST [facility] / [facility] [address] [place] [phone] Shilpi Yateschristian 10/21/2025 5:30 PM EST [facility] / [facility] [address] [place] [phone] Tiana Sibley 10/22/2025 8:30 AM EST [facility] / [facility] [address] [place] [phone] Tiana Sibley 10/22/2025 12:30 PM EST [facility] / [facility] [address] [place] [phone] Tiana Sibley 10/22/2025 5:00 PM EST [facility] / [facility] [address] [place] [phone] Tiana Sibley 10/23/2025 8:30 AM EST [facility] / [facility] [address] [place] [phone] Brigida Hendricks 10/23/2025 12:30 PM EST [facility] / [facility] [address] [place] [phone] Brigida Hendricks 10/23/2025 5:30 PM EST [facility] / [facility] [address] [place] [phone] Brigida Hendricks documented as of this encounter Visit Diagnoses Not on filedocumented in this encounter Additional Health Concerns Assessment Noted Time PHQ-9 Depression Total Score: 3 03/25/ 25 11:12 AM EDT documented as of this encounter Care Teams Survey Supervisor Relationship Specialty Start Date End Date Reyna Zuniga NP [address] [place] [phone] PCP - General Family Medicine 11/06/24 documented as of this encounter
--- OUTSIDE RECORDS SUMMARY | 2025-08-24 06:54 | XMS_ITS | Encounter Summary ---
Author Organization [facility] Address [address] [place] [address] Care Team Providers Care Prescription Clerk Name Role Phone Reyna Zuniga NP Primary Care Provider [phone] Encounter Details Date Type Department Care Team (Late st Contact Info) Description 02/15/2025 Health [facility] [address] [place] [phone] Jia Lowe RN Social History Tobacco Use Types Packs/Day [...] In [facility] [address] [place] [phone] Melissa Raza 08/24/2025 12:30 PM EST PACE Home Care / [facility] [place] [facility] [address] [place] [phone] Melissa Raza 08/24/2025 1:00 PM EST Office Visit [facility] [address] [place] [address] Ilsa Frias MD [address] [address] 08/24/2025 5:30 PM EST PACE Home Care / [facility] [address] [place] [address] Daksha Yates 08/25/2025 7:00 AM EST PACE Home Care / [facility] Visit [facility] [address] [place] [address] Tiana Sibley 08/25/2025 12:30 PM EST PACE Home Care / P[facility] Visit [facility] [address] [place] [address] Daksha Yates 08/25/2025 5:30 PM EST PACE Home Care / [facility] Visit [facility] [address] [place] [phone] Daksha Yates 08/26/2025 8:30 AM EST PACE Home Care / [facility] Visit [facility] [address] [place] [phone] Tiana Sibley 08/26/2025 12:00 PM EST PACE Home Care / [facility] Visit [facility] [address] [place] [phone] Jesse Alfred 08/26/2025 5:30 PM EST PACE Home Care / [facility] Visit [facility] [address] [place] [phone] Tiana Sibley 08/27/2025 8:00 AM EST PACE Home Care / [facility] Visit [facility] [address] [place] [phone] [facility] 08/27/2025 1:00 PM EST PACE Home Care / [facility] [address] [place] [address] Tiana Sibley 08/27/2025 5:00 PM EST PACE Home Care / [facility] [place] [facility] [address] [place] [phone] Trud[facility], [facility] 08/28/2025 8:00 AM EST PACE Home Care / [facility] [place] [facility] [address] [place] [phone] [facility] 08/28/2025 12:30 PM EST PACE Home Care / [facility] [place] [facility] [address] [place] [phone] Jesse Alfred 08/28/2025 4:30 PM EST PACE Home Care / [facility] [place] [facility] [address] [place] [phone] [facility] 08/29/2025 8:00 AM EST PACE Home Care / [facility] [place] [facility] [address] [place] [phone] Melissa Raza 08/29/2025 12:30 PM EST PACE Home Care / [facility] [place] [facility] [address] [place] [phone] Melissa Raza 08/29/2025 5:30 PM EST PACE Home Care / [facility] [address] [place] [phone] [facility]/30/[facility] 8:00 AM EST P[facility] Home [facility] / [facility] [place] [facility] [address] [place] [phone] Tiana Sibley 08/30/2025 12:30 PM EST PACE Home Care / [facility] [address] [place] [address] Lata Ford 08/30/2025 5:30 PM EST PACE Home Care / [facility] [address] [place] [address] Daksha Yates 08/31/2025 8:30 AM EST PACE Home Care / [facility] [address] [place] [address] Melissa Raza 08/31/2025 12:30 PM EST PACE Home Care / [facility] [address] [place] [phone] Melissa Raza 08/31/2025 5:00 PM EST PACE Home Care / [facility] [address] [place] [address] Daksha Yates 09/01/2025 8:30 AM EST PACE Home Care / [facility] [address] [place] [phone] Tiana Sibley 09/01/2025 12:30 PM EST PACE Home Care / [facility] [address] [place] [address] Daksha Yates 09/01/2025 5:30 PM EST PACE Home Care / [facility] [address] [place] [phone] Daksha Yates 09/02/2025 8:30 AM EST PACE Home Care / [facility] [address] [place] [address] Tiana Sibley 09/02/2025 1:30 PM EST PACE Home Care / [facility] [address] [place] [address] Tiana Sibley 09/02/2025 4:00 PM EST PACE Home Care / [facility] [address] [place] [address] Tiana Sibley 09/03/2025 8:30 AM EST PACE Home Care / [facility] [address] [place] [address] Tiana Sibley 09/03/2025 12:30 PM EST PACE Home Care / [facility] [place] [facility] [address] [place] [phone] Tiana Sibley 09/03/2025 5:30 PM EST PACE Home Care / [facility] [address] [place] [phone] Tiana Sibley 09/04/2025 8:00 AM EST PACE Home Care / [facility] [place] [facility] [address] [place] [phone] Daksha Yates 09/04/2025 12:30 PM EST PACE Home Care / [facility] [place] [facility] [address] [place] [phone] Daksha Yates 09/04/2025 5:30 PM EST PACE Home Care / [facility] [address] [place] [phone] Daksha Yates 09/05/2025 8:00 AM EST PACE Home Care / [facility] [place] [facility] [address] [place] [address] Melissa Raza 09/05/2025 12:30 PM EST PACE Home Care / [facility] [address] [place] [address] Melissa Raza 09/05/2025 5:30 PM EST PACE Home Care / [facility] Visit [facility] [address] [place] [address] Daksha Yates 09/06/2025 8:00 AM EST PACE Home Care / [facility] Visit [facility] [address] [place] [address] Tiana Sibley 09/06/2025 12:30 PM EST PACE Home Care / [facility] Visit [facility] [address] [place] [address] Lata Ford 09/06/2025 5:30 PM EST PACE Home Care / [facility] Visit [facility] [address] [place] [phone] Daksha Yates 09/07/2025 8:00 AM EST PACE Home Care / [facility] Visit [facility] [address] [place] [phone] Melissa Raza 09/07/2025 12:30 PM EST PACE Home Care / [facility] [address] [place] [phone] Melissa Raza 09/07/2025 5:30 PM EST PACE Home Care / [facility] [place] [facility] [address] [place] [phone] Daksha Yates 09/08/2025 8:00 AM EST PACE Home Care / [facility] [address] [place] [address] Tiana Sibley 09/08/2025 12:30 PM EST PACE Home Care / [facility] [address] [place] [address] Daksha Yates 09/08/2025 5:30 PM EST PACE Home Care / [facility] [place] [facility] [address] [place] [address] Daksha Yates 09/09/2025 8:30 AM EST PACE Home Care / [facility] [address] [place] [address] Tiana Sibley 09/09/2025 12:30 PM EST PACE Home Care / [facility] [place] [facility] [address] [place] [phone] Daksha Yates 09/09/2025 5:30 PM EST PACE Home Care / [facility] [place] [facility] [address] [place] [address] Tiana Sibley 09/10/2025 8:30 AM EST PACE Home Care / [facility] [address] [place] [address] Tiana Sibley 09/10/2025 12:30 PM EST PACE Home Care / [facility] [address] [place] [phone] Tiana Sibley 09/10/2025 5:00 PM EST PACE Home Care / [facility] [address] [place] [address] Tiana Sibley 09/11/2025 8:30 AM EST PACE Home Care / [facility] [address] [place] [address] Brigida Hendricks 09/11/2025 12:30 PM EST PACE Home Care / [facility] [address] [place] [address] Brigida Hendricks 09/11/2025 5:30 PM EST PACE Home Care / [facility] [address] [place] [address] Brigida Hendricks 09/12/2025 8:00 AM EST PACE Home Care / [facility] [address] [place] [address] Melissa Raza 09/12/2025 12:30 PM EST PACE Home Care / [facility] [address] [place] [address] Melissa Raza 09/12/2025 5:30 PM EST PACE Home Care / [facility] [address] [place] [address] Daksha Yates 09/13/2025 8:00 AM EST PACE Home Care / [facility] [address] [place] [address] Tiana Sibley 09/13/2025 12:30 PM EST PACE Home Care / [facility] [address] [place] [address] Lata Ford 09/13/2025 5:30 PM EST PACE Home Care / [facility] [address] [place] [address] Daksha Yates 09/14/2025 8:00 AM EST PACE Home Care / [facility] [address] [place] [address] Melissa Raza 09/14/2025 12:30 PM EST PACE Home Care / [facility] [address] [place] [address] Melissa Raza 09/14/2025 5:30 PM EST PACE Home Care / [facility] [address] [place] [phone] [facility]/15/[facility] 8:00 AM EST PACE Home Care / [facility] [address] [place] [address] Tiana Sibley 09/15/2025 12:30 PM EST PACE Home Care / [facility] [address] [place] [address] [facility]/15/2025 5:30 PM EST PACE Home Care / [facility] [address] [place] [phone] Daksha Yates 09/16/2025 8:30 AM EST PACE Home Care / [facility] [place] [facility] [address] [place] [address] Tiana Sibley 09/16/2025 12:30 PM EST PACE Home Care / [facility] [address] [place] [phone] Daksha Yates 09/16/2025 5:30 PM EST PACE Home Care / [facility] [address] [place] [phone] Tiana Sibley 09/17/2025 8:30 AM EST PACE Home Care / [facility] [address] [place] [address] Tiana Sibley 09/17/2025 12:30 PM EST PACE Home Care / [facility] [address] [place] [address] Tiana Sibley 09/17/2025 5:30 PM EST PACE Home Care / [facility] [address] [place] [address] Tiana Sibley 09/18/2025 8:00 AM EST PACE Home Care / [facility] [address] [place] [phone] Daksha Yates 09/18/2025 12:30 PM EST PACE Home Care / [facility] [address] [place] [phone] Daksha Yates 09/18/2025 5:30 PM EST PACE Home Care / [facility] [address] [place] [phone] Daksha Yates 09/19/2025 8:00 AM EST PACE Home Care / [facility] [address] [place] [address] Melissa Raza 09/19/2025 12:30 PM EST PACE Home Care / [facility] [address] [place] [address] Melissa Raza 09/19/2025 5:30 PM EST PACE Home Care / [facility] [address] [place] [phone] Daksha Yates 09/20/2025 8:00 AM EST PACE Home Care / [facility] [address] [place] [address] Tiana Sibley 09/20/2025 12:30 PM EST PACE Home Care / [facility] [address] [place] [address] Lata Ford 09/20/2025 5:30 PM EST PACE Home Care / [facility] [address] [place] [phone] Daksha Yates 09/21/2025 8:00 AM EST PACE Home Care / [facility] [address] [place] [phone] Melissa Raza 09/21/2025 12:30 PM EST PACE Home Care / [facility] [address] [place] [phone] Melissa Raza 09/21/2025 5:30 PM EST PACE Home Care / [facility] [address] [place] [phone] Daksha Yates 09/22/2025 8:00 AM EST PACE Home Care / [facility] [address] [place] [phone] Tiana Sibley 09/22/2025 12:30 PM EST PACE Home Care / [facility] [address] [place] [phone] Daksha Yates 09/22/2025 5:30 PM EST PACE Home Care / [facility] [address] [place] [phone] Daksha Yates 09/23/2025 8:30 AM EST PACE Home Care / [facility] [address] [place] [address] Tiana Sibley 09/23/2025 12:30 PM EST PACE Home Care / [facility] [address] [place] [address] Daksha Yates 09/23/2025 5:30 PM EST PACE Home Care / [facility] [address] [place] [address] Tiana Sibley 09/24/2025 8:30 AM EST PACE Home Care / [facility] [address] [place] [address] Tiana Sibley 09/24/2025 12:30 PM EST PACE Home Care / [facility] [address] [place] [address] Tiana Sibley 09/24/2025 5:00 PM EST PACE Home Care / [facility] [address] [place] [address] Tiana Sibely 09/25/2025 8:30 AM EST PACE Home Care / [facility] [address] [place] [address] Brigida Hendricks 09/25/2025 12:30 PM EST PACE Home Care / [facility] [address] [place] [address] Brigida Hendricks 09/25/2025 5:30 PM EST PACE Home Care / [facility] [address] [place] [address] Brigida Hendricks 09/26/2025 8:00 AM EST PACE Home Care / [facility] [address] [place] [address] Melissa Raza 09/26/2025 12:30 PM EST PACE Home Care / [facility] [address] [place] [address] Melissa Raza 09/26/2025 5:30 PM EST PACE Home Care / [facility] [address] [place] [phone] Daksha Yates 09/27/2025 8:00 AM EST PACE Home Care / [facility] [address] [place] [phone] Tiana Sibley 09/27/2025 12:30 PM EST PACE Home Care / [facility] [address] [place] [phone] Lata Ford 09/27/2025 5:30 PM EST PACE Home Care / [facility] [place] [facility] [address] [place] [phone] Daksha Yates 09/28/2025 8:00 AM EST PACE Home Care / [facility] [address] [place] [phone] Melissa Raza 09/28/2025 12:30 PM EST PACE Home Care / [facility] [address] [place] [phone] Melissa Raza 09/28/2025 5:30 PM EST PACE Home Care / [facility] [address] [place] [address] Daksha Yates 09/29/2025 8:00 AM EST PACE Home Care / [facility] [address] [place] [address] Tiana Sibley 09/29/2025 12:30 PM EST PACE Home Care / [facility] Visit [facility] [address] [place] [address] Daksha Yates 09/29/2025 5:30 PM EST PACE Home Care / [facility] Visit [facility] [address] [place] [address] Daksha Yates 09/30/2025 8:30 AM EST PACE Home Care / [facility] Visit [facility] [address] [place] [address] Tiana Sibley 09/30/2025 12:30 PM EST PACE Home Care / [facility] Visit [facility] [address] [place] [phone] Daksha Yates 09/30/2025 5:30 PM EST PACE Home Care / [facility] Visit [facility] [address] [place] [phone] Tiana Sibley 10/01/2025 8:30 AM EST PACE Home Care / [facility] [address] [place] [address] Tiana Sibley 10/01/2025 12:30 PM EST PACE Home Care / [facility] [place] [facility] [address] [place] [address] Tiana Sibley 10/01/2025 5:30 PM EST PACE Home Care / [facility] [address] [place] [address] Tiana Sibley 10/02/2025 8:00 AM EST PACE Home Care / [facility] [place] [facility] [address] [place] [address] Daksha Yates 10/02/2025 12:30 PM EST PACE Home Care / [facility] [address] [place] [address] Daksha Yates 10/02/2025 5:30 PM EST PACE Home Care / [facility] [place] [facility] [address] [place] [phone] Daksha Yates 10/03/2025 8:00 AM EST PACE Home Care / [facility] [address] [place] [phone] Melissa Raza 10/03/2025 12:30 PM EST PACE Home Care / [facility] [address] [place] [phone] Melissa Raza 10/03/2025 5:30 PM EST PACE Home Care / [facility] [address] [place] [phone] Daksha Yates 10/04/2025 8:00 AM EST PACE Home Care / [facility] [address] [place] [phone] Tiana Sibley 10/04/2025 12:30 PM EST PACE Home Care / [facility] [address] [place] [address] Lata Ford 10/04/2025 5:30 PM EST PACE Home Care / [facility] [address] [place] [address] Daksha Yates 10/05/2025 8:00 AM EST PACE Home Care / [facility] [address] [place] [address] Melissa Raza 10/05/2025 12:30 PM EST PACE Home Care / [facility] [address] [place] [address] Melissa Raza 10/05/2025 5:30 PM EST PACE Home Care / [facility] [address] [place] [phone] Daksha Yates 10/06/2025 8:00 AM EST PACE Home Care / [facility] [address] [place] [phone] Tiana Sibley 10/06/2025 12:30 PM EST PACE Home Care / [facility] [address] [place] [phone] [facility] 10/06/2025 5:30 PM EST PACE Home Care / [facility] [address] [place] [phone] [facility] 10/07/2025 8:30 AM EST PACE Home Care / [facility] [address] [place] [phone] Tiana Sibley 10/07/2025 12:30 PM EST PACE Home Care / [facility] [address] [place] [phone] Daksha Yates 10/07/2025 5:30 PM EST PACE Home Care / [facility] [address] [place] [address] Tiana Sibley 10/08/2025 8:30 AM EST PACE Home Care / [facility] [address] [place] [phone] Tiana Sibley 10/08/2025 12:30 PM EST PACE Home Care / [facility] [address] [place] [phone] Tiana Sibley 10/08/2025 5:00 PM EST PACE Home Care / [facility] [address] [place] [phone] Tiana Sibley 10/09/2025 8:30 AM EST PACE Home Care / [facility] [address] [place] [phone] Brigida Hendricks 10/09/2025 12:30 PM EST PACE Home Care / [facility] [address] [place] [phone] Brigida Hendricks 10/09/2025 5:30 PM EST PACE Home Care / [facility] [address] [place] [phone] Brigida Hendricks 10/10/2025 8:00 AM EST PACE Home Care / [facility] [place] [facility] [address] [place] [phone] Melissa Raza 10/10/2025 12:30 PM EST PACE Home Care / [facility] [address] [place] [phone] Melissa Raza 10/10/2025 5:30 PM EST PACE Home Care / [facility] [address] [place] [phone] Daksha Yates 10/11/2025 8:00 AM EST PACE Home Care / [facility] [address] [place] [phone] Tiana Sibley 10/11/2025 12:30 PM EST PACE Home Care / [facility] [place] [facility] [address] [place] [phone] Lata Ford 10/11/2025 5:30 PM EST PACE Home Care / [facility] [place] [facility] [address] [place] [phone] Daksha Yates 10/12/2025 8:00 AM EST PACE Home Care / [facility] [address] [place] [phone] Melissa Raza 10/12/2025 12:30 PM EST PACE Home Care / [facility] [place] [facility] [facility] [address] [place] [phone] Melissa Raza 10/12/2025 5:30 PM EST [facility] [address] [place] [phone] Daksha Yates 10/13/2025 8:00 AM EST [facility] / [facility] [address] [place] [phone] Tiana Sibley 10/13/2025 12:30 PM EST [facility] / [facility] [address] [place] [phone] Daksha Yates 10/13/2025 5:30 PM EST [facility] / [facility] [address] [place] [phone] Daksha Yates 10/14/2025 8:30 AM EST [facility] / [facility] [address] [place] [phone] Tiana Sibley 10/14/2025 12:30 PM EST [facility] / [facility] [address] [place] [phone] Daksha Yates 10/14/2025 5:30 PM EST [facility] / [facility] [address] [place] [phone] Tiana Sibley 10/15/2025 8:30 AM EST [facility] / [facility] [address] [place] [phone] Tiana Sibley 10/15/2025 12:30 PM EST [facility] / [facility] [address] [place] [phone] Tiana Sibley 10/15/2025 5:30 PM EST [facility] / [facility] [address] [place] [phone] Tiana Sibley 10/16/2025 8:00 AM EST [facility] / [facility] [address] [place] [phone] Daksha Yates 10/16/2025 12:30 PM EST [facility] / [facility] [address] [place] [address] [place] [phone] Daksha Yates 10/16/2025 5:30 PM EST [facility] / [facility] [address] [place] [phone] Daksha Yates 10/17/2025 8:00 AM EST [facility] / [facility] [address] [place] [phone] Melissa Raza 10/17/2025 12:30 PM EST [facility] / [facility] [address] [place] [phone] Melissa Raza 10/17/2025 5:30 PM EST [facility] / [facility] [address] [place] [phone] Daksha Yates 10/18/2025 8:00 AM EST [facility] / [facility] [address] [place] [phone] Tiana Sibley 10/18/2025 12:30 PM EST [facility] / [facility] [address] [place] [phone] Lata Ford 10/18/2025 5:30 PM EST [facility] / [facility] [address] [place] [phone] Daksha Yates 10/19/2025 8:00 AM EST [facility] / [facility] [address] [place] [phone] Melissa Raza 10/19/2025 12:30 PM EST [facility] / [facility] [address] [place] [phone] Melissa Raza 10/19/2025 5:30 PM EST [facility] / [facility] [address] [place] [phone] Daksha Yates 10/20/2025 8:00 AM EST [facility] / [facility] [address] [place] [phone] Tiana Sibley 10/20/2025 12:30 PM EST [facility] / [facility] [address] [place] [phone] Daksha Yates 10/20/2025 5:30 PM EST [facility] / [facility] [address] [place] [phone] Daksha Yates 10/21/2025 8:30 AM EST [facility] / [facility] [address] [place] [phone] Tiana Sibley 10/21/2025 12:30 PM EST [facility] / [facility] [address] [place] [phone] Daksha Yates 10/21/2025 5:30 PM EST [facility] / [facility] [address] [place] [phone] Tiana Sibley 10/22/2025 8:30 AM EST [facility] / [facility] [address] [place] [phone] Tiana Sibley 10/22/2025 12:30 PM EST [facility] / [facility] [address] [place] [phone] Tiana Sibley 10/22/2025 5:00 PM EST [facility] / [facility] [address] [place] [phone] Tiana Sibley 10/23/2025 8:30 AM EST [facility] / [facility] [address] [place] [phone] Brigida Hendricks 10/23/2025 12:30 PM EST [facility] / [facility] Visit [facility] [address] [place] [phone] Brigida Hendricks 10/23/2025 5:30 PM EST [facility] / [facility] [address] [place] [phone] Brigida Hendricks documented as of this encounter Visit Diagnoses Not on filedocumented in this encounter Care Teams Prescription Clerk Relationship Specialty Start Date End Date Reyna Zuniga NP [address] [place] [id number] PCP - General Family Medicine 11/06/24 documented as of this encounter
--- OUTSIDE RECORDS SUMMARY | 2025-08-24 06:54 | XMS_ITS | Encounter Summary ---
Author Organization [facility] Address [id number] [place] [id number] Care Team Providers Care Director Of Revenue Cycle Management Name Role Phone Reyna Zuniga NP Primary Care Provider [phone] Encounter Details Date Type Department Care Team (Late st Contact Info) Description 08/18/2025 PACE Fall [facility] [address] [place] [phone] Antonio Andrade OT Social History Tobacco Use Types Packs/Day Years Used Date Smoking Tobacco: Former Cigarettes Smokeless Tobacco: Never Comments:Ex-smoker Sex and Gender Information Value Date Recorded Sex Assigned at Not on file Legal Sex Male 9:32 AM EST Gender Identity Not on file Sexual Orientation Not on file documented as of this encounter Progress Notes * Antonio Andrade OT - 08/18/2025 3:00 PM EST Camera in the home captured angel getting up from fall, however did not capture fall itself. This fall proceeded the initial fall approximately 2 minutes later. Angel's son to adjust camera settings in attempt to capture future falls. Angel's son provided angel with new slippers as slippers he was wearing at the time of the fall were ill-fitting. Per angel's son, heels stuck out a couple inches. Video captured angel removing his pants while standing after getting up, then exiting the kitchen. documented in this encounter Plan of Treatment Upcoming Encounters Date Type Department Care Team (Late st Contact Info) Description 08/24/2025 8:00 AM EST PACE Home Care / [facility] Visit [facility] [address] [place] [phone] Melissa Raza 08/24/2025 12:30 PM EST PACE Home Care / [facility] [address] [place] [phone] Melissa Raza 08/24/2025 1:00 PM EST Office Visit [facility] [address] [place] [phone] Ilsa Frias MD [address] [place] [phone] 08/24/2025 5:30 PM EST PACE Home Care / [facility] [address] [place] [phone] Daksha Yates 08/25/2025 7:00 AM EST PACE Home Care / [facility] Visit [facility] [address] [place] [phone] Tiana Sibley 08/25/2025 12:30 PM EST PACE Home Care / [facility] [address] [place] [phone] Daksha Yates 08/25/2025 5:30 PM EST PACE Home Care / [facility] Visit [facility] [address] [place] [phone] Daksha Yates 08/26/2025 8:30 AM EST PACE Home Care / P[facility] Visit [facility] [address] [place] [address] Tiana Sibley 08/26/2025 12:00 PM EST PACE Home Care / [facility] [address] [place] [address] Jesse Alfred 08/26/2025 5:30 PM EST PACE Home Care / [facility] [address] [place] [phone] Tiana Sibley 08/27/2025 8:00 AM EST PACE Home Care / [facility] [address] [place] [address] Daksha Yates 08/27/2025 1:00 PM EST PACE Home Care / [facility] [address] [place] [phone] Tiana Sibley 08/27/2025 5:00 PM EST PACE Home Care / [facility] [address] [place] [phone] Daksha Yates 08/28/2025 8:00 AM EST PACE Home Care / [facility] [address] [place] [phone] Daksha Yates 08/28/2025 12:30 PM EST PACE Home Care / [facility] [address] [place] [address] Jesse Alfred 08/28/2025 4:30 PM EST PACE Home Care / [facility] [address] [place] [phone] Daksha Yates 08/29/2025 8:00 AM EST PACE Home Care / [facility] [address] [place] [address] Melissa Raza 08/29/2025 12:30 PM EST PACE Home Care / [facility] [address] [place] [phone] Melissa Raza 08/29/2025 5:30 PM EST PACE Home Care / [facility] [address] [place] [phone] Daksha Yates 08/30/2025 8:00 AM EST PACE Home Care / [facility] [address] [place] [phone] Tiana Sibley 08/30/2025 12:30 PM EST PACE Home Care / [facility] [address] [place] [phone] Lata Ford 08/30/2025 5:30 PM EST PACE Home Care / [facility] [address] [place] [phone] Daksha Yates 08/31/2025 8:30 AM EST PACE Home Care / [facility] [address] [place] [phone] Melissa Raza 08/31/2025 12:30 PM EST PACE Home Care / [facility] [address] [place] [phone] Melissa Raza 08/31/2025 5:00 PM EST PACE Home Care / [facility] [address] [place] [phone] Daksha Yates 09/01/2025 8:30 AM EST PACE Home Care / [facility] [address] [place] [address] Tiana Sibley 09/01/2025 12:30 PM EST PACE Home Care / PACE Home Visit [facility] [address] [place] [address] Daksha Yates 09/01/2025 5:30 PM EST PACE Home Care / PACE Home Visit [facility] [address] [place] [phone] Daksha Yates 09/02/2025 8:30 AM EST PACE Home Care / PACE Home Visit [facility] [address] [place] [phone] Tiana Sibley 09/02/2025 1:30 PM EST PACE Home Care / PACE Home Visit [facility] [address] [place] [phone] Tiana Sibley 09/02/2025 4:00 PM EST PACE Home Care / PACE Home Visit [facility] [address] [place] [phone] Tiana Sibley 09/03/2025 8:30 AM EST PACE Home Care / PACE Home Visit [facility] [address] [place] [phone] Tiana Sibley 09/03/2025 12:30 PM EST PACE Home Care / [facility] [address] [place] [phone] Tiana Sibley 09/03/2025 5:30 PM EST PACE Home Care / [facility] Visit [facility] [address] [place] [phone] Tiana Sibley 09/04/2025 8:00 AM EST PACE Home Care / [facility] [address] [place] [address] Daksha Yates 09/04/2025 12:30 PM EST PACE Home Care / [facility] [address] [place] [address] Daksha Yates 09/04/2025 5:30 PM EST PACE Home Care / [facility] [address] [place] [address] Daksha Yates 09/05/2025 8:00 AM EST PACE Home Care / [facility] [address] [place] [address] Melissa Raza 09/05/2025 12:30 PM EST PACE Home Care / [facility] [address] [place] [address] Melissa Raza 09/05/2025 5:30 PM EST PACE Home Care / [facility] [address] [place] [phone] Daksha Yates 09/06/2025 8:00 AM EST PACE Home Care / [facility] [address] [place] [address] Tiana Sibley 09/06/2025 12:30 PM EST PACE Home Care / P[facility] Visit [facility] [address] [place] [address] Lata Ford 09/06/2025 5:30 PM EST PACE Home Care / [facility] [address] [place] [phone] Daksha Yates 09/07/2025 8:00 AM EST PACE Home Care / [facility] [address] [place] [address] Melissa Raza 09/07/2025 12:30 PM EST PACE Home Care / P[facility] [address] [place] [address] Melissa Raza 09/07/2025 5:30 PM EST PACE Home Care / [facility] [address] [place] [phone] Daksha Yates 09/08/2025 8:00 AM EST PACE Home Care / [facility] [address] [place] [phone] Tiana Sibley 09/08/2025 12:30 PM EST PACE Home Care / [facility] [address] [place] [phone] Daksha Yates 09/08/2025 5:30 PM EST PACE Home Care / P[facility] Visit [facility] [address] [place] [phone] Daksha Yates 09/09/2025 8:30 AM EST PACE Home Care / P[facility] [address] [place] [address] Tiana Sibley 09/09/2025 12:30 PM EST PACE Home Care / P[facility] [address] [place] [phone] Daksha Yates 09/09/2025 5:30 PM EST PACE Home Care / [facility] [address] [place] [phone] Tiana Sibley 09/10/2025 8:30 AM EST PACE Home Care / [facility] [address] [place] [address] Tiana Sibley 09/10/2025 12:30 PM EST PACE Home Care / P[facility] [address] [place] [address] Tiana Sibley 09/10/2025 5:00 PM EST PACE Home Care / P[facility] [address] [place] [address] Tiana Sibley 09/11/2025 8:30 AM EST PACE Home Care / [facility] [address] [place] [phone] Brigida Hendricks 09/11/2025 12:30 PM EST PACE Home Care / [facility] [address] [place] [phone] Brigida Hendricks 09/11/2025 5:30 PM EST PACE Home Care / [facility] [address] [place] [phone] Brigida Hendricks 09/12/2025 8:00 AM EST PACE Home Care / P[facility] [address] [place] [address] Melissa Raza 09/12/2025 12:30 PM EST PACE Home Care / P[facility] [address] [place] [phone] Melissa Raza 09/12/2025 5:30 PM EST PACE Home Care / P[facility] [address] [place] [phone] Daksha Yates 09/13/2025 8:00 AM EST PACE Home Care / P[facility] [address] [place] [address] Tiana Sibley 09/13/2025 12:30 PM EST PACE Home Care / P[facility] [address] [place] [address] Lata Ford 09/13/2025 5:30 PM EST PACE Home Care / PACE [facility] Visit [facility] [address] [place] [address] Daksha Yates 09/14/2025 8:00 AM EST PACE Home Care / PACE [facility] Visit [facility] [address] [place] [phone] Melissa Raza 09/14/2025 12:30 PM EST PACE Home Care / P[facility] [address] [place] [phone] Melissa Raza 09/14/2025 5:30 PM EST PACE Home Care / P[facility] [address] [place] [phone] Daksha Yates 09/15/2025 8:00 AM EST PACE Home Care / [facility] [address] [place] [phone] Tiana Sibley 09/15/2025 12:30 PM EST PACE Home Care / [facility] [address] [place] [phone] Daksha Yates 09/15/2025 5:30 PM EST PACE Home Care / P[facility] [address] [place] [phone] Daksha Yates 09/16/2025 8:30 AM EST PACE Home Care / P[facility] [address] [place] [address] Tiana Sibley 09/16/2025 12:30 PM EST PACE Home Care / P[facility] [address] [place] [address] Daksha Yates 09/16/2025 5:30 PM EST PACE Home Care / P[facility] [address] [place] [address] Tiana Sibley 09/17/2025 8:30 AM EST PACE Home Care / P[facility] [address] [place] [address] Tiana Sibley 09/17/2025 12:30 PM EST PACE Home Care / P[facility] [address] [place] [address] Tiana Sibley 09/17/2025 5:30 PM EST PACE Home Care / P[facility] [address] [place] [phone] Tiana Sibley 09/18/2025 8:00 AM EST PACE Home Care / [facility] [address] [place] [address] Daksha Yates 09/18/2025 12:30 PM EST PACE Home Care / P[facility] [address] [place] [phone] Daksha Yates 09/18/2025 5:30 PM EST PACE Home Care / [facility] [address] [place] [address] Daksha Yates 09/19/2025 8:00 AM EST PACE Home Care / P[facility] [address] [place] [address] Melissa Raza 09/19/2025 12:30 PM EST PACE Home Care / P[facility] [address] [place] [address] Melissa Raza 09/19/2025 5:30 PM EST PACE Home Care / [facility] [address] [place] [address] Daksha Yates 09/20/2025 8:00 AM EST PACE Home Care / [facility] [address] [place] [phone] Tiana Sibley 09/20/2025 12:30 PM EST PACE Home Care / [facility] [address] [place] [phone] Lata Ford 09/20/2025 5:30 PM EST PACE Home Care / [facility] [address] [place] [phone] Daksha Yates 09/21/2025 8:00 AM EST PACE Home Care / [facility] [address] [place] [address] Melissa Raza 09/21/2025 12:30 PM EST PACE Home Care / P[facility] [address] [place] [address] Melissa Raza 09/21/2025 5:30 PM EST PACE Home Care / [facility] [address] [place] [address] [facility] 09/22/2025 8:00 AM EST PACE Home Care / [facility] [address] [place] [address] Tiana Sibley 09/22/2025 12:30 PM EST PACE Home Care / [facility] Visit [facility] [address] [place] [address] [facility] 09/22/2025 5:30 PM EST PACE Home Care / [facility] Visit [facility] [address] [place] [address] [facility] 09/23/2025 8:30 AM EST PACE Home Care / [facility] [address] [place] [address] Tiana Sibley 09/23/2025 12:30 PM EST PACE Home Care / P[facility] Visit [facility] [address] [place] [phone] [facility] 09/23/2025 5:30 PM EST PACE Home Care / [facility] Visit [facility] [address] [place] [phone] Tiana Sibley 09/24/2025 8:30 AM EST PACE Home Care / [facility] [address] [place] [address] Tiana Sibley 09/24/2025 12:30 PM EST PACE Home Care / P[facility] [address] [place] [address] Tiana Sibley 09/24/2025 5:00 PM EST PACE Home Care / P[facility] Visit [facility] [address] [place] [address] Tiana Sibley 09/25/2025 8:30 AM EST PACE Home Care / P[facility] [address] [place] [address] Brigida Hendricks 09/25/2025 12:30 PM EST PACE Home Care / [facility] [address] [place] [address] Brigida Hendricks 09/25/2025 5:30 PM EST PACE Home Care / [facility] [address] [place] [address] Brigida Hendricks 09/26/2025 8:00 AM EST PACE Home Care / [facility] [address] [place] [address] Melissa Raza 09/26/2025 12:30 PM EST PACE Home Care / [facility] [address] [place] [phone] Melissa Raza 09/26/2025 5:30 PM EST PACE Home Care / [facility] [address] [place] [phone] Daksha Yates 09/27/2025 8:00 AM EST PACE Home Care / [facility] [address] [place] [address] Tiana Sibley 09/27/2025 12:30 PM EST PACE Home Care / [facility] [address] [place] [address] Lata Ford 09/27/2025 5:30 PM EST PACE Home Care / [facility] [address] [place] [address] Daksha Yates 09/28/2025 8:00 AM EST PACE Home Care / [facility] [address] [place] [address] Melissa Raza 09/28/2025 12:30 PM EST PACE Home Care / [facility] [address] [place] [address] Melissa Raza 09/28/2025 5:30 PM EST PACE Home Care / [facility] [address] [place] [phone] Daksha Yates 09/29/2025 8:00 AM EST PACE Home Care / [facility] [address] [place] [phone] Tiana Sibley 09/29/2025 12:30 PM EST PACE Home Care / [facility] [address] [place] [phone] Daksha Yates 09/29/2025 5:30 PM EST PACE Home Care / [facility] [address] [place] [phone] Daksha Yates 09/30/2025 8:30 AM EST PACE Home Care / [facility] [address] [place] [phone] Tiana Sibley 09/30/2025 12:30 PM EST PACE Home Care / [facility] [address] [place] [phone] Daksha Yates 09/30/2025 5:30 PM EST PACE Home Care / [facility] [address] [place] [address] Tiana Sibley 10/01/2025 8:30 AM EST PACE Home Care / P[facility] [address] [place] [address] Tiana Sibley 10/01/2025 12:30 PM EST PACE Home Care / P[facility] [address] [place] [address] Tiana Sibley 10/01/2025 5:30 PM EST PACE Home Care / [facility] [address] [place] [phone] Tiana Sibley 10/02/2025 8:00 AM EST PACE Home Care / [facility] [address] [place] [phone] Trudy [facility] 10/02/2025 12:30 PM EST PACE Home Care / [facility] Visit [facility] [address] [place] [phone] Danskimberly, [facility] 10/02/2025 5:30 PM EST PACE Home Care / [facility] [address] [place] [phone] Dansereadaniel, [facility] 10/03/2025 8:00 AM EST PACE Home Care / [facility] [address] [place] [phone] Melissa Raza 10/03/2025 12:30 PM EST PACE Home Care / [facility] [address] [place] [phone] Melissa Raza 10/03/2025 5:30 PM EST PACE Home Care / [facility] [address] [place] [phone] Daksha Yates 10/04/2025 8:00 AM EST PACE Home Care / [facility] [address] [place] [address] Tiana Sibley 10/04/2025 12:30 PM EST PACE Home Care / P[facility] [address] [place] [phone] Lata Ford 10/04/2025 5:30 PM EST PACE Home Care / [facility] [address] [place] [phone] Daksha Yates 10/05/2025 8:00 AM EST PACE Home Care / [facility] [address] [place] [phone] Melissa Raza 10/05/2025 12:30 PM EST PACE Home Care / [facility] [address] [place] [phone] Melissa Raza 10/05/2025 5:30 PM EST PACE Home Care / [facility] [address] [place] [phone] Daksha Yates 10/06/2025 8:00 AM EST PACE Home Care / [facility] [address] [place] [phone] Tiana Sibley 10/06/2025 12:30 PM EST PACE Home Care / [facility] [address] [place] [phone] Daksha Yates 10/06/2025 5:30 PM EST PACE Home Care / [facility] [address] [place] [phone] KeshaDaksha harris 10/07/2025 8:30 AM EST PACE Home Care / [facility] [address] [place] [phone] Tiana Sibley 10/07/2025 12:30 PM EST PACE Home Care / [facility] [address] [place] [phone] Daksha Yates 10/07/2025 5:30 PM EST PACE Home Care / [facility] [address] [place] [phone] Tiana Sibley 10/08/2025 8:30 AM EST PACE Home Care / [facility] [address] [place] [phone] Tiana Sibley 10/08/2025 12:30 PM EST PACE Home Care / [facility] [address] [place] [phone] Tiana Sibley 10/08/2025 5:00 PM EST PACE Home Care / [facility] [address] [place] [phone] Tiana Sibley 10/09/2025 8:30 AM EST PACE Home Care / [facility] [address] [place] [phone] Brigida Hendricks 10/09/2025 12:30 PM EST PACE Home Care / [facility] [facility] [address] [place] [phone] Brigida Hendricks 10/09/2025 5:30 PM EST [facility] [address] [place] [phone] Brigida Hendricks 10/10/2025 8:00 AM EST [facility] / [facility] [address] [place] [phone] Melissa Raza 10/10/2025 12:30 PM EST [facility] / [facility] [address] [place] [phone] Melissa Raza 10/10/2025 5:30 PM EST [facility] / [facility] [address] [place] [phone] Daksha Yates 10/11/2025 8:00 AM EST [facility] / [facility] [address] [place] [phone] iTana Sibley 10/11/2025 12:30 PM EST [facility] / [facility] [address] [place] [phone] Lata Ford 10/11/2025 5:30 PM EST [facility] / [facility] [address] [place] [phone] Daksha Yates 10/12/2025 8:00 AM EST [facility] / [facility] [address] [place] [phone] Melissa Raza 10/12/2025 12:30 PM EST [facility] / [facility] [address] [place] [phone] Melissa Raza 10/12/2025 5:30 PM EST [facility] / [facility] [address] [place] [phone] Daksha Yates 10/13/2025 8:00 AM EST [facility] / [facility] [address] [place] [phone] Tiana Sibley 10/13/2025 12:30 PM EST [facility] / [facility] [address] [place] [phone] Daksha Yates 10/13/2025 5:30 PM EST [facility] / [facility] [address] [place] [phone] Daksha Yates 10/14/2025 8:30 AM EST [facility] / [facility] [address] [place] [phone] Tiana Sibley 10/14/2025 12:30 PM EST [facility] / [facility] [address] [place] [phone] Daksha Yates 10/14/2025 5:30 PM EST [facility] / [facility] [address] [place] [phone] Tiana Sibley 10/15/2025 8:30 AM EST [facility] / [facility] [address] [place] [phone] Tiana Sibley 10/15/2025 12:30 PM EST [facility] / [facility] [address] [place] [phone] Tiana Sibley 10/15/2025 5:30 PM EST [facility] / [facility] [address] [place] [phone] Tiana Sibley 10/16/2025 8:00 AM EST [facility] / [facility] [address] [place] [phone] Daksha Yates 10/16/2025 12:30 PM EST [facility] / [facility] [address] [place] [phone] Daksha Yates 10/16/2025 5:30 PM EST [facility] / [facility] [address] [place] [phone] Daksha Yates 10/17/2025 8:00 AM EST [facility] / [facility] [address] [place] [phone] Melissa Raza 10/17/2025 12:30 PM EST [facility] / [facility] [address] [place] [phone] Melissa Raza 10/17/2025 5:30 PM EST [facility] / [facility] [address] [place] [phone] Daksha Yates 10/18/2025 8:00 AM EST [facility] / [facility] [address] [place] [phone] Tiana Sibley 10/18/2025 12:30 PM EST [facility] / [facility] [address] [place] [phone] Lata Ford 10/18/2025 5:30 PM EST [facility] / [facility] [address] [place] [phone] Daksha Yates 10/19/2025 8:00 AM EST [facility] / [facility] [address] [place] [phone] Melissa Raza 10/19/2025 12:30 PM EST [facility] / [facility] [address] [place] [phone] Melissa Raza 10/19/2025 5:30 PM EST [facility] / [facility] [address] [place] [phone] DansDaksha harris 10/20/2025 8:00 AM EST [facility] / [facility] [address] [place] [phone] Tiana Sibley 10/20/2025 12:30 PM EST [facility] / [facility] [address] [place] [phone] [facility]/20/2025 5:30 PM EST [facility] / [facility] [address] [place] [phone] [facility] 10/21/2025 8:30 AM EST [facility] / [facility] [address] [place] [phone] Tiana Sibley 10/21/2025 12:30 PM EST [facility] / [facility] [address] [place] [phone] Trudy Shilpichristian 10/21/2025 5:30 PM EST [facility] / [facility] [address] [place] [phone] Tiana Sibley 10/22/2025 8:30 AM EST [facility] / [facility] [address] [place] [phone] Tiana Sibley 10/22/2025 12:30 PM EST [facility] / [facility] [address] [place] [phone] Tiana Sibley 10/22/2025 5:00 PM EST [facility] / [facility] [address] [place] [phone] Tiana Sibley 10/23/2025 8:30 AM EST [facility] / [facility] [address] [place] [phone] Brigida Hendricks 10/23/2025 12:30 PM EST [facility] / [facility] [address] [place] [phone] Brigida Hendricks 10/23/2025 5:30 PM EST [facility] / [facility] [address] [place] [phone] Brigida Hendricks documented as of this encounter Visit Diagnoses Not on filedocumented in this encounter Additional Health Concerns Assessment Noted Time PHQ-9 Depression Total Score: 3 03/25/20 25 11:12 AM EDT documented as of this encounter Care Teams Director Of Revenue Cycle Management Relationship Specialty Start Date End Date Reyna Zuniga NP [address] [address] PCP - General Family Medicine 11/06/24 documented as of this encounter
== END 2025-08-23 14:39 | disposition home or self-care (01) ==
LOC: HO.HSMS 13:31
PROVIDERS: Visit Provider Psychiatry & Neurology Neurology
DX: G20.A1 Parkinson's disease without dyskinesia, without mention of fluctuations (principal); R44.3 Hallucinations, unspecified; I95.1 Orthostatic hypotension
CPT/HCPCS: 99214; G2211

== ENCOUNTER → 2025-08-23 13:31 | Outpatient (BNVA) | payer OTHER, SELFPAY | PROVIDERS: Visit Provider Psychiatry & Neurology Neurology | DX: G20.A1 Parkinson's disease without dyskinesia, without mention of fluctuations (principal); R44.3 Hallucinations, unspecified; I95.1 Orthostatic hypotension; Z79.899 Other long term (current) drug therapy | CPT/HCPCS: 99212 ==

== ENCOUNTER 2025-09-05 22:27 | Emergency (ER) | payer OTHER, SELFPAY ==
--- OUTSIDE RECORDS SUMMARY | 2025-08-31 08:30 | XMS_ITS | Encounter Summary ---
Author Organization [facility] Address [address] [place] [address] Care Team Providers Care Securities Settlement Processor Name Role Phone Reyna Zuniga NP Primary Care Provider [phone] Encounter Details Date Type Department Care Team (Late st Contact Info) Description 08/31/2025 8:30 AM EST PACE Home Care / PACE Home Visit [facility] [address] [place] [phone] Lata Ford Social History Tobacco Use Types Packs/Day Years [...] Care Team (Late st Contact Info) Description 09/06/2025 Clinical Support [facility] [address] [place] [phone] Federica Quintana LPN 09/06/2025 8:00 AM EST PACE Home Care / PACE Home Visit [facility] [address] [place] [phone] Tiana Sibley 09/06/2025 12:15 PM EST Treatment Anne Marie GAL[facility] MA Occupational Therapy [address] [place] [address] Antonio Andrade OT 09/06/2025 5:30 PM EST PACE Home Care / PACE Home Visit [facility] [address] [place] [address] Daksha Yates 09/07/2025 8:30 AM EST PACE Home Care / PACE Home Visit [facility] [address] [place] [address] Melissa Raza 09/07/2025 12:30 PM EST PACE Home Care / PACE Home Visit [facility] [address] [place] [address] Melissa Raza 09/07/2025 5:30 PM EST PACE Home Care / PACE Home Visit [facility] [place] [facility] [address] [place] [phone] [facility]/08/[facility] 8:30 AM EST PACE Home Care / PACE Home Visit [facility] Marie [facility] [place] [facility] [address] [place] [phone] Tiana Sibley 09/08/2025 12:30 PM EST PACE Home Care / PACE Home Visit [facility] [place] [facility] [address] [place] [phone] [facility] 09/08/2025 5:30 PM EST PACE Home Care / [facility] [address] [place] [phone] [facility] 09/09/2025 8:30 AM EST PACE Home Care / [facility] Visit [facility] [address] [place] [phone] Tiana Sibley 09/09/2025 12:30 PM EST PACE Home Care / [facility] [address] [place] [address] Daksha Yates 09/09/2025 5:30 PM EST PACE Home Care / [facility] [address] [place] [address] Tiana Sibley 09/10/2025 9:00 AM EST PACE Home Care / [facility] [place] [facility] [address] [place] [address] Tiana Sibley 09/10/2025 12:00 PM EST PACE Home Care / [facility] [place] [facility] [address] [place] [phone] Brigida Hendricks 09/10/2025 5:00 PM EST PACE Home Care / [facility] [address] [place] [phone] Tiana Sibley 09/11/2025 7:30 AM EST PACE Home Care / [facility] [address] [place] [phone] Brigida Hendricks 09/11/2025 12:30 PM EST PACE Home Care / [facility] [place] [facility] [address] [place] [phone] Brigida Hendricks 09/11/2025 5:30 PM EST PACE Home Care / [facility] [place] [facility] [address] [place] [phone] Brigida Hendricks 09/12/2025 8:00 AM EST PACE Home Care / [facility] [place] [facility] [address] [place] [phone] Melissa Raza 09/12/2025 12:30 PM EST PACE Home Care / PACE Home Visit [facility] Marie [facility] [address] [place] [address] Melissa Raza 09/12/2025 5:30 PM EST PACE Home Care / PACE Home Visit [facility] Marie [facility] [place] [facility] [address] [place] [address] Daksha Yates 09/13/2025 Clinical Support [facility] [place] [facility] [address] [place] [phone] Federica Quintana LPN 09/13/2025 8:00 AM EST PACE Home Care / PACE Home Visit [facility] [address] [place] [phone] Tiana Sibley 09/13/2025 12:30 PM EST PACE Home Care / PACE Home Visit Anne Marie [facility] [address] [place] [phone] Lata Ford 09/13/2025 5:30 PM EST PACE Home Care / PACE Home Visit [facility] Marie [facility] [place] [facility] [address] [place] [phone] Daksha Yates 09/14/2025 8:00 AM EST PACE Home Care / PACE Home Visit [facility] Marie [facility] [address] [place] [phone] Melissa Raza 09/14/2025 12:30 PM EST PACE Home Care / [facility] [address] [place] [phone] Melissa Raza 09/14/2025 5:30 PM EST PACE Home Care / [facility] Visit [facility] [address] [place] [phone] Daksha Yates 09/15/2025 8:00 AM EST PACE Home Care / [facility] [place] [facility] [address] [place] [address] Tiana Sibley 09/15/2025 12:30 PM EST PACE Home Care / [facility] [place] [facility] [address] [place] [address] Daksha Yates 09/15/2025 5:30 PM EST PACE Home Care / [facility] [address] [place] [address] Daksha Yates 09/16/2025 8:30 AM EST PACE Home Care / [facility] [address] [place] [address] Tiana Sibley 09/16/2025 12:30 PM EST PACE Home Care / [facility] [place] [facility] [address] [place] [address] Daksha Yates 09/16/2025 5:30 PM EST PACE Home Care / [facility] [address] [place] [address] Tiana Sibley 09/17/2025 8:30 AM EST PACE Home Care / [facility] [address] [place] [address] Tiana Sibley 09/17/2025 12:30 PM EST PACE Home Care / [facility] [address] [place] [phone] Tiana Sibley 09/17/2025 5:30 PM EST PACE Home Care / [facility] [address] [place] [address] Tiana Sibley 09/18/2025 8:00 AM EST PACE Home Care / [facility] Visit [facility] [address] [place] [address] Daksha Yates 09/18/2025 12:30 PM EST PACE Home Care / [facility] Visit [facility] [address] [place] [address] Daksha Yates 09/18/2025 5:30 PM EST PACE Home Care / [facility] Visit [facility] [address] [place] [address] Daksha Yates 09/19/2025 8:00 AM EST PACE Home Care / [facility] [address] [place] [address] Melissa Raza 09/19/2025 12:30 PM EST PACE Home Care / [facility] Visit [facility] [address] [place] [address] Melissa Raza 09/19/2025 5:30 PM EST PACE Home Care / [facility] [address] [place] [address] Daksha Yates 09/20/2025 Clinical Support [facility] [place] [facility] [address] [place] [address] Federica Quintana LPN 09/20/2025 8:00 AM EST PACE Home Care / [facility] Visit [facility] [place] [facility] [address] [place] [address] Tiana Sibley 09/20/2025 12:30 PM EST PACE Home Care / [facility] [address] [place] [address] Lata Ford 09/20/2025 5:30 PM EST PACE Home Care / [facility] [address] [place] [address] Daksha Yates 09/21/2025 8:00 AM EST PACE Home Care / [facility] [place] [facility] [address] [place] [address] Melissa Raza 09/21/2025 12:30 PM EST PACE Home Care / [facility] [address] [place] [address] Melissa Raza 09/21/2025 5:30 PM EST PACE Home Care / [facility] [address] [place] [phone] Daksha Yates 09/22/2025 8:00 AM EST PACE Home Care / [facility] [place] [facility] [address] [place] [phone] Tiana Sibley 09/22/2025 12:30 PM EST PACE Home Care / [facility] [place] [facility] [address] [place] [phone] [facility]/22/[facility]25 5:30 PM EST PACE Home Care / [facility] [address] [place] [phone] [facility] 09/23/2025 8:30 AM EST PACE Home Care / [facility] [address] [place] [phone] Tiana Sibley 09/23/2025 12:30 PM EST PACE Home Care / [facility] [place] [facility] [address] [place] [phone] Daksha Yates 09/23/2025 5:30 PM EST PACE Home Care / [facility] [place] [facility] [address] [place] [address] Tiana Sibley 09/24/2025 8:30 AM EST PACE Home Care / [facility] [place] [facility] [address] [place] [phone] Tiana Sibley 09/24/2025 12:30 PM EST PACE Home Care / [facility] [place] [facility] [address] [place] [phone] Tiana Sibley 09/24/2025 5:00 PM EST PACE Home Care / [facility] [address] [place] [phone] Tiana Sibley 09/25/2025 8:30 AM EST PACE Home Care / [facility] [address] [place] [phone] Brigida Hendricks 09/25/2025 12:30 PM EST PACE Home Care / [facility] [address] [place] [phone] Brigida Hendricks 09/25/2025 5:30 PM EST PACE Home Care / [facility] [address] [place] [phone] Brigida Hendricks 09/26/2025 8:00 AM EST PACE Home Care / [facility] [address] [place] [phone] Melissa aRza 09/26/2025 12:30 PM EST PACE Home Care / [facility] [address] [place] [phone] Melissa Raza 09/26/2025 5:30 PM EST PACE Home Care / PACE Home Visit [facility] Marie [facility] [place] [facility] [address] [place] [phone] Daksha Yates 09/27/2025 Clinical Support [facility] [address] [place] [phone] Federica Quintana LPN 09/27/2025 8:00 AM EST PACE Home Care / PACE Home Visit [facility] [place] [facility] [address] [place] [phone] Tiana Sibley 09/27/2025 12:30 PM EST PACE Home Care / PACE Home Visit [facility] [address] [place] [phone] Lata Ford 09/27/2025 5:30 PM EST PACE Home Care / PACE Home Visit [facility] Marie [facility] [address] [place] [phone] Daksha Yates 09/28/2025 8:00 AM EST PACE Home Care / PACE Home Visit [facility] [address] [place] [phone] Melissa Raza 09/28/2025 12:30 PM EST PACE Home Care / PACE Home Visit [facility] [address] [place] [phone] Melissa Raza 09/28/2025 5:30 PM EST PACE Home Care / PACE Home Visit [facility] Marie [facility] [place] [facility] [address] [place] [phone] Daksha Yates 09/29/2025 8:00 AM EST PACE Home Care / PACE Home Visit [facility] Marie [facility] [place] [facility] [address] [place] [phone] Tiana Sibley 09/29/2025 12:30 PM EST PACE Home Care / [facility] [address] [place] [address] Daksha Yates 09/29/2025 5:30 PM EST PACE Home Care / [facility] [place] [facility] [address] [place] [address] Daksha Yates 09/30/2025 8:30 AM EST PACE Home Care / [facility] [address] [place] [phone] Tiana Sibley 09/30/2025 12:30 PM EST PACE Home Care / [facility] [place] [facility] [address] [place] [phone] Daksha Yates 09/30/2025 5:30 PM EST PACE Home Care / [facility] [address] [place] [phone] Tiana Sibley 10/01/2025 8:30 AM EST PACE Home Care / [facility] [address] [place] [phone] Tiana Sibley 10/01/2025 12:30 PM EST PACE Home Care / [facility] [address] [place] [phone] Tiana Sibley 10/01/2025 5:30 PM EST PACE Home Care / [facility] [address] [place] [phone] Tiana Sibley 10/02/2025 8:00 AM EST PACE Home Care / [facility] [address] [place] [phone] Daksha Yates 10/02/2025 12:30 PM EST PACE Home Care / [facility] [address] [place] [address] Daksha Yates 10/02/2025 5:30 PM EST PACE Home Care / [facility] Visit [facility] [address] [place] [phone] Daksha Yates 10/03/2025 8:00 AM EST PACE Home Care / [facility] [address] [place] [phone] Melissa Raza 10/03/2025 12:30 PM EST PACE Home Care / [facility] [address] [place] [phone] Melissa Raza 10/03/2025 5:30 PM EST PACE Home Care / PACE Home Visit [facility] [address] [place] [phone] [facility] Clinical Support [facility] [place] [facility] [address] [place] [phone] Federica Quintana LPN 10/04/2025 8:00 AM EST PACE Home Care / [facility] [address] [place] [phone] Tiana Sibley 10/04/2025 12:30 PM EST PACE Home Care / [facility] [address] [place] [phone] Lata Ford 10/04/2025 5:30 PM EST PACE Home Care / [facility] [address] [place] [phone] Daksha Yates 10/05/2025 8:00 AM EST PACE Home Care / [facility] [place] [facility] [address] [place] [phone] Melissa Raza 10/05/2025 12:30 PM EST PACE Home Care / [facility] [address] [place] [phone] Melissa Raza 10/05/2025 5:30 PM EST PACE Home Care / [facility] [address] [place] [phone] Daksha Yates 10/06/2025 8:00 AM EST PACE Home Care / [facility] [place] [facility] [address] [place] [phone] Tiana Sibley 10/06/2025 12:30 PM EST PACE Home Care / [facility] [place] [facility] [address] [place] [phone] [facility]/06/[facility]25 5:30 PM EST PACE Home Care / [facility] [place] [facility] [address] [place] [phone] Daksha Yates 10/07/2025 8:30 AM EST PACE Home Care / [facility] [place] [facility] [address] [place] [phone] Tiana Sibley 10/07/2025 12:30 PM EST PACE Home Care / [facility] [place] [facility] [address] [place] [phone] Daksha Yates 10/07/2025 5:30 PM EST PACE Home Care / [facility] [address] [place] [phone] Tiana Sibley 10/08/2025 8:30 AM EST PACE Home Care / [facility] [address] [place] [phone] Tiana Sibley 10/08/2025 12:30 PM EST PACE Home Care / [facility] [place] [facility] [address] [place] [phone] Tiana Sibley 10/08/2025 5:00 PM EST PACE Home Care / [facility] [place] [facility] [address] [place] [phone] Tiana Sibley 10/09/2025 8:30 AM EST PACE Home Care / [facility] [address] [place] [phone] Brigida Hendricks 10/09/2025 12:30 PM EST PACE Home Care / [facility] [address] [place] [phone] Brigida Hendricks 10/09/2025 5:30 PM EST PACE Home Care / [facility] [address] [place] [phone] Brigida Hendricks 10/10/2025 8:00 AM EST PACE Home Care / [facility] [address] [place] [phone] Melissa Raza 10/10/2025 12:30 PM EST PACE Home Care / [facility] [address] [place] [phone] Melissa Raza 10/10/2025 5:30 PM EST PACE Home Care / [facility] [place] [facility] [address] [place] [phone] Daksha Yates 10/11/2025 8:00 AM EST PACE Home Care / [facility] [place] [facility] [address] [place] [address] Tiana Sibley 10/11/2025 12:30 PM EST PACE Home Care / [facility] [place] [facility] [address] [place] [phone] Lata Ford 10/11/2025 5:30 PM EST PACE Home Care / [facility] [address] [place] [phone] Daksha Yates 10/12/2025 8:00 AM EST PACE Home Care / [facility] [address] [place] [phone] Melissa Raza 10/12/2025 12:30 PM EST PACE Home Care / [facility] [address] [place] [phone] Melissa Raza 10/12/2025 5:30 PM EST PACE Home Care / [facility] [address] [place] [phone] Daksha Yates 10/13/2025 8:00 AM EST PACE Home Care / [facility] [address] [place] [phone] Tiana Sibley 10/13/2025 12:30 PM EST PACE Home Care / [facility] [address] [place] [phone] Daksha Yates 10/13/2025 5:30 PM EST PACE Home Care / [facility] [address] [place] [phone] Daksha Yates 10/14/2025 8:30 AM EST PACE Home Care / [facility] [address] [place] [address] Tiana Sibley 10/14/2025 12:30 PM EST PACE Home Care / [facility] [place] [facility] [address] [place] [address] Daksha Yates 10/14/2025 5:30 PM EST PACE Home Care / [facility] [address] [place] [phone] Tiana Sibley 10/15/2025 8:30 AM EST PACE Home Care / [facility] [address] [place] [address] Tiana Sibley 10/15/2025 12:30 PM EST PACE Home Care / [facility] [address] [place] [phone] Tiana Sibley 10/15/2025 5:30 PM EST PACE Home Care / [facility] [address] [place] [phone] Tiana Sibley 10/16/2025 8:00 AM EST PACE Home Care / [facility] [address] [place] [phone] Daksha Yates 10/16/2025 12:30 PM EST PACE Home Care / [facility] [address] [place] [phone] Daksha Yates 10/16/2025 5:30 PM EST PACE Home Care / [facility] [address] [place] [address] Daksha Yates 10/17/2025 8:00 AM EST PACE Home Care / [facility] [address] [place] [phone] Melissa Raza 10/17/2025 12:30 PM EST PACE Home Care / [facility] [address] [place] [phone] Melissa Raza 10/17/2025 5:30 PM EST PACE Home Care / [facility] [address] [place] [phone] Daksha Yates 10/18/2025 8:00 AM EST PACE Home Care / [facility] [address] [place] [phone] Tiana Sibley 10/18/2025 12:30 PM EST PACE Home Care / [facility] [address] [place] [phone] Lata Ford 10/18/2025 5:30 PM EST PACE Home Care / [facility] [address] [place] [phone] Daksha Yates 10/19/2025 8:00 AM EST PACE Home Care / [facility] [address] [place] [phone] Melissa Raza 10/19/2025 12:30 PM EST PACE Home Care / [facility] [place] [facility] [address] [place] [phone] Melissa Raza 10/19/2025 5:30 PM EST PACE Home Care / [facility] [place] [facility] [address] [place] [phone] Daksha Yates 10/20/2025 8:00 AM EST PACE Home Care / [facility] [address] [place] [phone] Tiana Sibley 10/20/2025 12:30 PM EST PACE Home Care / [facility] [place] [facility] [address] [place] [address] Daksha Yates 10/20/2025 5:30 PM EST PACE Home Care / [facility] [address] [place] [phone] Daksha Yates 10/21/2025 8:30 AM EST PACE Home Care / [facility] [place] [facility] [address] [place] [phone] Tiana Sibley 10/21/2025 12:30 PM EST PACE Home Care / [facility] [place] [facility] [address] [place] [phone] Daksha Yates 10/21/2025 5:30 PM EST PACE Home Care / [facility] [address] [place] [phone] Tiana Sibley 10/22/2025 8:30 AM EST PACE Home Care / [facility] [place] [facility] [address] [place] [phone] Tiana Sibley 10/22/2025 12:30 PM EST P[facility] Home [facility] / [facility] [place] [facility] [address] [place] [phone] Tiana Sibley 10/22/2025 5:00 PM EST [facility] [address] [place] [phone] Tiana Sibley 10/23/2025 8:30 AM EST [facility] / [facility] [place] [facility] [address] [place] [phone] Brigida Hendricks 10/23/2025 12:30 PM EST [facility] / [facility] [place] [facility] [address] [place] [phone] Brigida Hendricks 10/23/2025 5:30 PM EST [facility] / [facility] [facility] [place] [facility] [address] [place] [phone] Brigida Hendricks 10/24/2025 8:00 AM EST [facility] / [facility] [place] [facility] [address] [place] [phone] Melissa Raza 10/24/2025 12:30 PM EST [facility] / [facility] [address] [place] [phone] Melissa Raza 10/24/2025 5:30 PM EST [facility] / [facility] [place] [facility] [address] [place] [phone] Daksha Yates 10/25/2025 8:00 AM EST [facility] / [facility] [place] [facility] [address] [place] [phone] Tiana Sibley 10/25/2025 12:30 PM EST [facility] [place] [facility] [address] [place] [phone] Lata Ford 10/25/2025 5:30 PM EST [facility] / [facility] [place] [facility] [address] [place] [phone] Daksha Yates 10/26/2025 8:00 AM EST [facility] / [facility] [place] [facility] [address] [place] [phone] Melissa Raza 10/26/2025 12:30 PM EST [facility] / [facility] [place] [facility] [address] [place] [phone] Melissa Raza 10/26/2025 5:30 PM EST [facility] / [facility] [address] [place] [phone] [facility] 8:00 AM EST [facility] [place] [facility] [address] [place] [phone] Tiana Sibley 10/27/2025 12:30 PM EST [facility] / [facility] [place] [facility] [place] [facility] [address] [place] [phone] [facility]/27/2025 5:30 PM EST [facility] [place] [facility] [address] [place] [phone] Dansereadaniel [facility] 10/28/2025 8:30 AM EST [facility] / [facility] [facility] [place] [facility] [address] [place] [phone] Tiana Sibley 10/28/2025 12:30 PM EST [facility] / [facility] [place] [facility] [address] [place] [phone] Daksha Yates 10/28/2025 5:30 PM EST [facility] / [facility] [place] [facility] [address] [place] [phone] Tiana Sibley 10/29/2025 8:30 AM EST [facility] / [facility] [address] [place] [phone] Tiana Sibley 10/29/2025 12:30 PM EST [facility] / [facility] [address] [place] [phone] Tiana Sibley 10/29/2025 5:30 PM EST [facility] / [facility] [place] [facility] [address] [place] [phone] Tiana Sibley 10/30/2025 8:00 AM EST [facility] / [facility] [facility] [place] [facility] [place] [facility] [address] [place] [phone] Dansereadaniel [facility] 10/30/2025 12:30 PM EST [facility] / [facility] [facility] [place] [facility] [address] [place] [phone] [place], [facility] 10/30/2025 5:30 PM EST [facility] / [facility] [facility] [place] [facility] [address] [place] [phone] [place], [facility] 10/31/2025 8:00 AM EST [facility] / [facility] [facility] [place] [facility] [place] [facility] [address] [place] [phone] Melissa Raza 10/31/2025 12:30 PM EST [facility] / [facility] [facility] [place] [facility] [address] [place] [phone] Melissa Raza 10/31/2025 5:30 PM EST [facility] / [facility] [address] [place] [phone] Daksha Yates 11/01/2025 8:00 AM EST [facility] / [facility] [address] [place] [phone] Tiana Sibley 11/01/2025 12:30 PM EST [facility] / [facility] [place] [facility] [address] [place] [phone] Lata Ford 11/01/2025 5:30 PM EST [facility] / [facility] [facility] [place] [facility] [address] [place] [phone] Daksha Yates 11/02/2025 8:00 AM EST [facility] / [facility] [facility] [place] [facility] [address] [place] [phone] Melissa Raza 11/02/2025 12:30 PM EST [facility] / [facility] [place] [facility] [address] [place] [phone] Melissa Raza 11/02/2025 5:30 PM EST [facility] / [facility] [place] [facility] [address] [place] [phone] Daksha Yates 11/03/2025 8:00 AM EST [facility] / [facility] [place] [facility] [address] [place] [phone] Tiana Sibley 11/03/2025 12:30 PM EST [facility] / [facility] [address] [facility] [place] [phone] Daksha Yates 11/03/2025 5:30 PM EST [facility] / [facility] [address] [place] [phone] MeliadanielDaksha 11/04/2025 8:30 AM EST [facility] / [facility] [address] [place] [phone] Tiana Sibley 11/04/2025 12:30 PM EST [facility] / [facility] [address] [place] [phone] Daksha Yates 11/04/2025 5:30 PM EST [facility] / [facility] [address] [place] [phone] Tiana Sibley documented as of this encounter Visit Diagnoses Not on filedocumented in this encounter Additional Health Concerns Assessment Noted Time PHQ-9 Depression Total Score: 3 03/25/20 11:12 AM EDT documented as of this encounter Care Teams Securities Settlement Processor Relationship Specialty Start Date End Date Reyna Zuniga NP [address] [place] [id number] PCP - General Family Medicine 11/06/24 documented as of this encounter
--- OUTSIDE RECORDS SUMMARY | 2025-09-02 08:30 | XMS_ITS | Encounter Summary ---
Author Organization [facility] Address [address] [place] [address] Care Team Providers Care Correctional Medicine Physician Name Role Phone Reyna Zuniga NP Primary Care Provider [phone] Encounter Details Date Type Department Care Team (Late st Contact Info) Description 09/02/2025 8:30 AM EST PACE Home Care / PACE Home Visit [facility] [address] [place] [phone] Lata Ford Social History Tobacco Use Types [...] Support [facility] [address] [place] [phone] Federica Quintana LPN 09/06/2025 8:00 AM EST PACE Home Care / PACE Home Visit [facility] Marie [facility] [address] [place] [phone] Tiana Sibley 09/06/2025 12:15 PM EST Treatment Anne Marie GAL[facility]Z MA Occupational Therapy [address] [place] [address] Antonio Andrade OT 09/06/2025 5:30 PM EST PACE Home Care / PACE Home Visit [facility] [address] [place] [address] Daksha Yates 09/07/2025 8:30 AM EST PACE Home Care / PACE Home Visit [facility] [address] [place] [address] Melissa Raza 09/07/2025 12:30 PM EST PACE Home Care / PACE Home Visit [facility] [address] [place] [address] Melissa Raza 09/07/2025 5:30 PM EST PACE Home Care / PACE Home Visit [facility] Marie [facility] [address] [place] [phone] Trudy [facility] 09/08/2025 8:30 AM EST PACE Home Care / PACE Home Visit [facility] Marie [facility] [address] [place] [phone] Tiana Sibley 09/08/2025 12:30 PM EST PACE Home Care / PACE Home Visit [facility] [address] [place] [phone] Trudy, [facility] 09/08/2025 5:30 PM EST PACE Home Care / [facility] [address] [place] [phone] Trudy, [facility] 09/09/2025 8:30 AM EST PACE Home Care / [facility] [address] [place] [phone] Tiana Sibley 09/09/2025 12:30 PM EST PACE Home Care / [facility] [address] [place] [address] Daksha Yates 09/09/2025 5:30 PM EST PACE Home Care / [facility] [address] [place] [address] Tiana Sibley 09/10/2025 9:00 AM EST PACE Home Care / [facility] [place] [facility] [address] [place] [address] Tiana Sibley 09/10/2025 12:00 PM EST PACE Home Care / [facility] [place] [facility] [address] [place] [phone] Brigida Hendricks 09/10/2025 5:00 PM EST PACE Home Care / [facility] [place] [facility] [address] [place] [phone] Tiana Sibley 09/11/2025 7:30 AM EST PACE Home Care / [facility] [place] [facility] [address] [place] [phone] Brigida Hendricks 09/11/2025 12:30 PM EST PACE Home Care / [facility] [place] [facility] [address] [place] [phone] Brigida Hendricks 09/11/2025 5:30 PM EST PACE Home Care / [facility] [place] [facility] [address] [place] [phone] Brigida Hendricks 09/12/2025 8:00 AM EST PACE Home Care / [facility] [place] [facility] [address] [place] [phone] Melissa Raza 09/12/2025 12:30 PM EST PACE Home Care / PACE Home Visit [facility] [address] [place] [address] Melissa Raza 09/12/2025 5:30 PM EST PACE Home Care / PACE Home Visit [facility] [address] [place] [address] Daksha Yates 09/13/2025 Clinical Support [facility] [address] [place] [address] Federica Quintana LPN 09/13/2025 8:00 AM EST PACE Home Care / PACE Home Visit [facility] [address] [place] [phone] Tiana Sibley 09/13/2025 12:30 PM EST PACE Home Care / PACE Home Visit [facility] Marie [facility] [address] [place] [phone] Lata Ford 09/13/2025 5:30 PM EST PACE Home Care / PACE Home Visit [facility] Marie [facility] [address] [place] [phone] Daksha Yates 09/14/2025 8:00 AM EST PACE Home Care / PACE Home Visit [facility] Marie [facility] [address] [place] [phone] Melissa Raza 09/14/2025 12:30 PM EST PACE Home Care / [facility] [address] [place] [phone] Melissa Raza 09/14/2025 5:30 PM EST PACE Home Care / [facility] Visit [facility] [address] [place] [phone] Daksha Yates 09/15/2025 8:00 AM EST PACE Home Care / [facility] [place] [facility] [address] [place] [address] Tiana Sibley 09/15/2025 12:30 PM EST PACE Home Care / [facility] [place] [facility] [address] [place] [address] Daksha Yates 09/15/2025 5:30 PM EST PACE Home Care / [facility] [place] [facility] [address] [place] [address] Daksha Yates 09/16/2025 8:30 AM EST PACE Home Care / [facility] [address] [place] [address] Tiana Sibley 09/16/2025 12:30 PM EST PACE Home Care / [facility] [place] [facility] [address] [place] [address] Daksha Yates 09/16/2025 5:30 PM EST PACE Home Care / [facility] [place] [facility] [address] [place] [address] Tiana Sibley 09/17/2025 8:30 AM EST PACE Home Care / [facility] [place] [facility] [address] [place] [address] Tiana Sibley 09/17/2025 12:30 PM EST PACE Home Care / [facility] [address] [place] [phone] Tiana Sibley 09/17/2025 5:30 PM EST PACE Home Care / [facility] [address] [place] [address] Tiana Sibley 09/18/2025 8:00 AM EST PACE Home Care / [facility] Visit [facility] [address] [place] [address] Daksha Yates 09/18/2025 12:30 PM EST PACE Home Care / [facility] Visit [facility] [address] [place] [address] Daksha Yates 09/18/2025 5:30 PM EST PACE Home Care / [facility] Visit [facility] [address] [place] [address] Daksha Yates 09/19/2025 8:00 AM EST PACE Home Care / [facility] Visit [facility] [address] [place] [address] Melissa Raza 09/19/2025 12:30 PM EST PACE Home Care / [facility] Visit [facility] [address] [place] [address] Melissa Raza 09/19/2025 5:30 PM EST PACE Home Care / [facility] Visit [facility] [address] [place] [address] Daksha Yates 09/20/2025 Clinical Support [facility] [address] [place] [address] Federica Qunitana LPN 09/20/2025 8:00 AM EST PACE Home Care / [facility] Visit [facility] [place] [facility] [address] [place] [address] Tiana Sibley 09/20/2025 12:30 PM EST PACE Home Care / [facility] [place] [facility] [address] [place] [address] Lata Ford 09/20/2025 5:30 PM EST PACE Home Care / [facility] [address] [place] [address] Daksha Yates 09/21/2025 8:00 AM EST PACE Home Care / [facility] [address] [place] [address] Melissa Raza 09/21/2025 12:30 PM EST PACE Home Care / [facility] [address] [place] [address] Melissa Raza 09/21/2025 5:30 PM EST PACE Home Care / [facility] [place] [facility] [address] [place] [phone] Daksha Yates 09/22/2025 8:00 AM EST PACE Home Care / [facility] [place] [facility] [address] [place] [phone] Tiana Sibley 09/22/2025 12:30 PM EST PACE Home Care / [facility] [place] [facility] [address] [place] [phone] Trudy [facility] 09/22/2025 5:30 PM EST PACE Home Care / [facility] [place] [facility] [address] [place] [phone] Trudy [facility] 09/23/2025 8:30 AM EST PACE Home Care / [facility] [place] [facility] [address] [place] [phone] Tiana Sibley 09/23/2025 12:30 PM EST PACE Home Care / [facility] [place] [facility] [address] [place] [phone] Daksha Yates 09/23/2025 5:30 PM EST PACE Home Care / [facility] [place] [facility] [address] [place] [address] Tiana Sibley 09/24/2025 8:30 AM EST PACE Home Care / [facility] [place] [facility] [address] [place] [phone] Tiana Sibley 09/24/2025 12:30 PM EST PACE Home Care / [facility] [place] [facility] [address] [place] [phone] Tiana Sibley 09/24/2025 5:00 PM EST PACE Home Care / [facility] [address] [place] [phone] Tiana Sibley 09/25/2025 8:30 AM EST PACE Home Care / [facility] [address] [place] [phone] Brigida Hendricks 09/25/2025 12:30 PM EST PACE Home Care / [facility] [address] [place] [phone] Brigida Hendricks 09/25/2025 5:30 PM EST PACE Home Care / [facility] [address] [place] [phone] Brigida Hendricks 09/26/2025 8:00 AM EST PACE Home Care / [facility] [place] [facility] [address] [place] [phone] Melissa Raza 09/26/2025 12:30 PM EST PACE Home Care / [facility] [address] [place] [phone] Melissa Raza 09/26/2025 5:30 PM EST PACE Home Care / PACE Home Visit [facility] [address] [place] [phone] Daksha Yates 09/27/2025 Clinical Support [facility] [address] [place] [phone] Federica Quintana LPN 09/27/2025 8:00 AM EST PACE Home Care / PACE Home Visit [facility] [address] [place] [phone] Tiana Sibley 09/27/2025 12:30 PM EST PACE Home Care / PACE Home Visit [facility] [address] [place] [phone] Lata Ford 09/27/2025 5:30 PM EST PACE Home Care / PACE Home Visit [facility] [address] [place] [phone] Daksha Yates 09/28/2025 8:00 AM EST PACE Home Care / PACE Home Visit [facility] [address] [place] [phone] Melissa Raza 09/28/2025 12:30 PM EST PACE Home Care / PACE Home Visit [facility] [address] [place] [phone] Melissa Raza 09/28/2025 5:30 PM EST PACE Home Care / PACE Home Visit [facility] [address] [place] [phone] Daksha Yates 09/29/2025 8:00 AM EST PACE Home Care / PACE Home Visit [facility] [address] [place] [phone] Tiana Sibley 09/29/2025 12:30 PM EST PACE Home Care / [facility] [address] [place] [address] Daksha Yates 09/29/2025 5:30 PM EST PACE Home Care / [facility] [address] [place] [address] Daksha Yates 09/30/2025 8:30 AM EST PACE Home Care / [facility] [address] [place] [phone] Tiana Sibley 09/30/2025 12:30 PM EST PACE Home Care / [facility] [place] [facility] [address] [place] [phone] Daksha Yates 09/30/2025 5:30 PM EST PACE Home Care / [facility] [address] [place] [phone] Tiana Sibley 10/01/2025 8:30 AM EST PACE Home Care / [facility] [address] [place] [phone] Tiana Sibley 10/01/2025 12:30 PM EST PACE Home Care / [facility] [address] [place] [phone] Tiana Sibley 10/01/2025 5:30 PM EST PACE Home Care / [facility] [address] [place] [phone] Tiana Sibley 10/02/2025 8:00 AM EST PACE Home Care / [facility] [address] [place] [phone] Daksha Yates 10/02/2025 12:30 PM EST PACE Home Care / [facility] [address] [place] [address] Daksha Yates 10/02/2025 5:30 PM EST PACE Home Care / [facility] Visit [facility] [address] [place] [phone] Daksha Yates 10/03/2025 8:00 AM EST PACE Home Care / [facility] [address] [place] [phone] Melissa Raza 10/03/2025 12:30 PM EST PACE Home Care / [facility] [address] [place] [phone] Melissa Raza 10/03/2025 5:30 PM EST PACE Home Care / PACE Home Visit [facility] [address] [place] [phone] Trudy [facility] 10/04/2025 Clinical Support [facility] [address] [place] [phone] Federica Quintana LPN 10/04/2025 8:00 AM EST PACE Home Care / [facility] [address] [place] [phone] Tiana Sibley 10/04/2025 12:30 PM EST PACE Home Care / [facility] [address] [place] [phone] Lata Ford 10/04/2025 5:30 PM EST PACE Home Care / [facility] [address] [place] [phone] Daksha Yaets 10/05/2025 8:00 AM EST PACE Home Care / [facility] [address] [place] [address] Melissa Raza 10/05/2025 12:30 PM EST PACE Home Care / [facility] [place] [facility] [address] [place] [address] Melissa Raza 10/05/2025 5:30 PM EST PACE Home Care / [facility] [address] [place] [phone] Daksha Yates 10/06/2025 8:00 AM EST PACE Home Care / [facility] [place] [facility] [address] [place] [phone] Tiana Sibley 10/06/2025 12:30 PM EST PACE Home Care / [facility] [place] [facility] [address] [place] [phone] Trudy [facility] 10/06/2025 5:30 PM EST PACE Home Care / [facility] [address] [place] [phone] Daksha Yates 10/07/2025 8:30 AM EST PACE Home Care / [facility] [place] [facility] [address] [place] [phone] Tiana Sibley 10/07/2025 12:30 PM EST PACE Home Care / [facility] [place] [facility] [address] [place] [phone] Daksha Yates 10/07/2025 5:30 PM EST PACE Home Care / [facility] [address] [place] [phone] Tiana Sibley 10/08/2025 8:30 AM EST PACE Home Care / [facility] [address] [place] [phone] Tiana Sibley 10/08/2025 12:30 PM EST PACE Home Care / [facility] [address] [place] [phone] Tiana Sibley 10/08/2025 5:00 PM EST PACE Home Care / [facility] [place] [facility] [address] [place] [phone] Tiana Sibley 10/09/2025 8:30 AM EST PACE Home Care / [facility] [address] [place] [phone] Brigida Hendricks 10/09/2025 12:30 PM EST PACE Home Care / [facility] [address] [place] [phone] Brigida Hendricks 10/09/2025 5:30 PM EST PACE Home Care / [facility] [address] [place] [phone] Brigida Hendricks 10/10/2025 8:00 AM EST PACE Home Care / [facility] [address] [place] [phone] Melissa Raza 10/10/2025 12:30 PM EST PACE Home Care / [facility] [address] [place] [phone] Melissa Raza 10/10/2025 5:30 PM EST PACE Home Care / [facility] [place] [facility] [address] [place] [phone] Daksha Yates 10/11/2025 8:00 AM EST PACE Home Care / [facility] [address] [place] [address] Tiana Sibley 10/11/2025 12:30 PM EST PACE Home Care / [facility] [address] [place] [address] Lata Ford 10/11/2025 5:30 PM EST PACE Home Care / [facility] [address] [place] [phone] Daksha Yates 10/12/2025 8:00 AM EST PACE Home Care / [facility] [address] [place] [phone] Melissa Raza 10/12/2025 12:30 PM EST PACE Home Care / [facility] [address] [place] [phone] Melissa Raza 10/12/2025 5:30 PM EST PACE Home Care / [facility] [address] [place] [phone] Daksha Yates 10/13/2025 8:00 AM EST PACE Home Care / [facility] [address] [place] [phone] Tiana Sibley 10/13/2025 12:30 PM EST PACE Home Care / [facility] [address] [place] [phone] Daksha Yates 10/13/2025 5:30 PM EST PACE Home Care / [facility] [address] [place] [address] Daksha Yates 10/14/2025 8:30 AM EST PACE Home Care / [facility] [address] [place] [address] Tiana Sibley 10/14/2025 12:30 PM EST PACE Home Care / [facility] [address] [place] [address] Daksha Yates 10/14/2025 5:30 PM EST PACE Home Care / [facility] [address] [place] [phone] Tiana Sibley 10/15/2025 8:30 AM EST PACE Home Care / [facility] [address] [place] [address] Tiana Sibley 10/15/2025 12:30 PM EST PACE Home Care / [facility] [address] [place] [phone] Tiana Sibley 10/15/2025 5:30 PM EST PACE Home Care / [facility] [address] [place] [phone] Tiana Sibley 10/16/2025 8:00 AM EST PACE Home Care / [facility] [address] [place] [phone] Daksha Yates 10/16/2025 12:30 PM EST PACE Home Care / [facility] [address] [place] [phone] Daksha Yates 10/16/2025 5:30 PM EST PACE Home Care / [facility] [address] [place] [address] Daksha Yates 10/17/2025 8:00 AM EST PACE Home Care / [facility] [address] [place] [address] Melissa Raza 10/17/2025 12:30 PM EST PACE Home Care / [facility] [address] [place] [phone] Melissa Raza 10/17/2025 5:30 PM EST PACE Home Care / [facility] [address] [place] [phone] Daksha Yates 10/18/2025 8:00 AM EST PACE Home Care / [facility] [address] [place] [phone] Tiana Sibley 10/18/2025 12:30 PM EST PACE Home Care / [facility] [address] [place] [phone] Lata Ford 10/18/2025 5:30 PM EST PACE Home Care / [facility] [address] [place] [phone] Daksha Yates 10/19/2025 8:00 AM EST PACE Home Care / [facility] [address] [place] [phone] Melissa Raza 10/19/2025 12:30 PM EST PACE Home Care / [facility] [address] [place] [phone] Melissa Raza 10/19/2025 5:30 PM EST PACE Home Care / [facility] [address] [place] [address] Daksha Yates 10/20/2025 8:00 AM EST PACE Home Care / [facility] [address] [place] [address] Tiana Sibley 10/20/2025 12:30 PM EST PACE Home Care / [facility] [address] [place] [address] Daksha Yates 10/20/2025 5:30 PM EST PACE Home Care / [facility] [address] [place] [phone] Daksha Yates 10/21/2025 8:30 AM EST PACE Home Care / [facility] [address] [place] [phone] Tiana Sibley 10/21/2025 12:30 PM EST PACE Home Care / [facility] [place] [facility] [address] [place] [phone] Daksha Yates 10/21/2025 5:30 PM EST PACE Home Care / [facility] [place] [facility] [address] [place] [phone] Tiana Sibley 10/22/2025 8:30 AM EST PACE Home Care / [facility] [address] [place] [phone] Tiana Sibley 10/22/2025 12:30 PM EST PACE Home Care / [facility] [place] [facility] [facility] [address] [place] [phone] Tiana Sibley 10/22/2025 5:00 PM EST [facility] [address] [place] [phone] Tiana Sibley 10/23/2025 8:30 AM EST [facility] / [facility] [place] [facility] [place] [facility] [address] [place] [phone] Brigida Hendricks 10/23/2025 12:30 PM EST [facility] / [facility] [place] [facility] [place] [facility] [address] [place] [phone] Brigida Hendricks 10/23/2025 5:30 PM EST [facility] / [facility] [place] [facility] [place] [facility] [address] [place] [phone] Brigida Hendricks 10/24/2025 8:00 AM EST [facility] / [facility] [place] [facility] [place] [facility] [address] [place] [phone] Melissa Raza 10/24/2025 12:30 PM EST [facility] / [facility] [place] [facility] [address] [place] [phone] Melissa Raza 10/24/2025 5:30 PM EST [facility] / [facility] [place] [facility] [address] [place] [phone] Daksha Yates 10/25/2025 8:00 AM EST [facility] / [facility] [place] [facility] [address] [place] [phone] Tiana Sibley 10/25/2025 12:30 PM EST [facility] / [facility] [place] [facility] [address] [place] [phone] Lata Ford 10/25/2025 5:30 PM EST [facility] / [facility] [place] [facility] [address] [place] [phone] Daksha Yates 10/26/2025 8:00 AM EST [facility] / [facility] [place] [facility] [address] [place] [phone] Melissa Raza 10/26/2025 12:30 PM EST [facility] / [facility] [place] [facility] [address] [place] [phone] Melissa Raza 10/26/2025 5:30 PM EST [facility] / [facility] [place] [facility] [address] [place] [phone] Trudy [facility] 10/27/2025 8:00 AM EST [facility] / [facility] [place] [facility] [address] [place] [phone] Tiana Sibley 10/27/2025 12:30 PM EST [facility] / [facility] [place] [facility] [address] [place] [phone] Danskimberly [facility] 10/27/2025 5:30 PM EST [facility] / [facility] [place] [facility] [address] [place] [phone] Dansereadaniel [facility] 10/28/2025 8:30 AM EST [facility] / [facility] [place] [facility] [place] [facility] [address] [place] [phone] Tiana Sibley 10/28/2025 12:30 PM EST [facility] / [facility] [place] [facility] [address] [place] [phone] Daksha Yates 10/28/2025 5:30 PM EST [facility] / [facility] [place] [facility] [address] [place] [phone] Tiana Sibley 10/29/2025 8:30 AM EST [facility] / [facility] [place] [facility] [address] [place] [phone] Tiana Sibley 10/29/2025 12:30 PM EST [facility] / [facility] [place] [facility] [address] [place] [phone] Tiana Sibley 10/29/2025 5:30 PM EST [facility] / [facility] [place] [facility] [address] [place] [phone] Tiana Sibley 10/30/2025 8:00 AM EST [facility] / [facility] [place] [facility] [address] [place] [phone] Dansereadaniel [facility] 10/30/2025 12:30 PM EST [facility] / [facility] [place] [facility] [place] [facility] [address] [place] [phone] Dansereau, [facility] 10/30/2025 5:30 PM EST [facility] Home [facility] / [facility] [place] [facility] [place] [facility] [address] [place] [phone] Dansereau, [facility] 10/31/2025 8:00 AM EST [facility] / [facility] [place] [facility] [place] [facility] [address] [place] [phone] Melissa Raza 10/31/2025 12:30 PM EST [facility] / [facility] [place] [facility] [place] [facility] [address] [place] [phone] Melissa Raza 10/31/2025 5:30 PM EST [facility] / [facility] [place] [facility] [address] [place] [phone] Daksha Yates 11/01/2025 8:00 AM EST [facility] / [facility] [place] [facility] [address] [place] [phone] Tiana Sibley 11/01/2025 12:30 PM EST [facility] / [facility] [place] [facility] [address] [place] [phone] Lata Ford 11/01/2025 5:30 PM EST [facility] / [facility] [place] [facility] [address] [place] [phone] Daksha Yates 11/02/2025 8:00 AM EST [facility] / [facility] [place] [facility] [address] [place] [phone] Melissa Raza 11/02/2025 12:30 PM EST [facility] / [facility] [place] [facility] [address] [place] [phone] Melissa Raza 11/02/2025 5:30 PM EST [facility] / [facility] [place] [facility] [address] [place] [phone] Daksha Yates 11/03/2025 8:00 AM EST [facility] / [facility] [place] [facility] [address] [place] [phone] Tiana Sibley 11/03/2025 12:30 PM EST [facility] / [facility] [place] [facility] [address] [place] [phone] Daksha Yates 11/03/2025 5:30 PM EST [facility] / [facility] [address] [place] [phone] MeliadanielDaksha 11/04/2025 8:30 AM EST [facility] / [facility] [address] [place] [phone] Tiana Sibley 11/04/2025 12:30 PM EST [facility] / [facility] [address] [place] [phone] Daksha Yates 11/04/2025 5:30 PM EST [facility] / [facility] [address] [place] [phone] Tiana Sibley documented as of this encounter Visit Diagnoses Not on filedocumented in this encounter Additional Health Concerns Assessment Noted Time PHQ-9 Depression Total Score: 3 03/25/20 11:12 AM EDT documented as of this encounter Care Teams Correctional Medicine Physician Relationship Specialty Start Date End Date Reyna Zuniga NP [address] [place] [phone] PCP - General Family Medicine 11/06/24 documented as of this encounter
--- OUTSIDE RECORDS SUMMARY | 2025-09-02 12:00 | XMS_ITS | Encounter Summary ---
Author Organization [facility] Address [address] [place] [address] Care Team Providers Care [employer] Name Role Phone Reyna Zuniga SPECIAL OFFICER Primary Care Provider [phone] Encounter Details Date Type Department Care Team (Late st Contact Info) Description 09/02/2025 12:00 PM EST Evaluation [facility] [address] [place] [phone] Fede Rock, PT Social History Tobacco Use Types Packs/Day Years Used Date Smoking Tobacco: Former Cigarettes Smokeless Tobacco: Never Comments:Ex-smoker Sex and Gender Information Value Date Recorded Sex Assigned at Not on file Legal Sex Male 9:32 AM EST Gender Identity Not on file Sexual Orientation Not on file documented as of this encounter Last Filed Vital Signs Vital Sign Reading Time Taken Comments Blood Pressure 141/76 09/02/2025 12:00 PM EST right arm in sitting - standing right arm BP 162/74 with no complaints Pulse 60 09/02/2025 12:00 PM EST radail pulse Temperature - - Respiratory Rate - - Oxygen Saturation - - Inhaled Oxygen Concentration - - Weight - - Height - - Body Mass Index - - documented in this encounter Progress Notes * Fede Rock, PT - 09/02/2025 12:00 PM EST PT ANNUAL ASSESSMENT AND FOLLOW UP POST FALL ASSESSMENT Par is a 75 y/o male who resides alone and remains functioning safely in the community with family support and support of [facility] staff. He has parkinson's with left UE resting and intention tremor. He is right hand dominant with no tremor observed this visit and he is independent with feeding. No tremors observed with assimilated hand to mouth utilizing utensils. No need for weight spoonat this time. He has had recent falls which per neurologist drop in BP from beta amita, Med changes made by PCP. Video's in home to monitor safety and family to check in as needed. Med alert systemon left wrist. PMHx significant for but not limited to: anxiety, HTN, MCI, mutiple falls hx., chochlear implant left hear, [place] ( hearing aids), cervicalagia, bradycardia, orthostatic hypotension due to parkinson's and medication management. Unsteady gait/vertigo. PLOF: recent discharge from skilled PT program on 08/04 with low risk for falls. Mcdonald score 53/56. 30 second chair to rise 11 reps . TUG: No A.D 11.94 seconds. Subjective: Participant pleasant and cooperative -slow to make changes in home. Son present for full visit will further educate par on safety in home and importance of communication regarding any more falls. Slow positional changes to ensure no dizziness when upright before ambulation. Objective: Pt observed in kitchen captains chair arm was broken. Son reports he will switch it out. STANDARDIZED TESTS and Gait assessment: Mcdonald Balance TesT 53/56, Tug Score: 11.25 sec without A.D. Par at low risk for falls. Functional strength BLE's: 10 chiar to rise in 30 seconds. Par has std RWwhich he doesn't utilze and demonstrates safe ambulation household distances and supervision for uneven surfaces. His recent fall hx likely related to BP issues ie orthostatic BP. He denies any dizziness at rest or with head and neck movements during gait. Balance maintained with retro ambulation, side stepping and quick stops and starts. Floor to stand transfer independent. Son reports that his Dad manages the community mobility without any difficulty. Bed mobility: Ind Transfers: Ind Stairs with railing: Ind ( however rec he avoid managing laundry up and downstairs at this time. ) Assessment: Par and son made aware to notify PT if return of dizziness. Deferred teaching of Meena maneuver as no vestibular symptoms present. Rollator walker not indicated at this time as par is notinterested and would like to remain without A.D. Family to consider if any further changes due to progressive parkinsons. They have placed captains chairs around the home and par was instructed to sit if he feels unsteady as par able to sense LOB and avoid further ambulation without supervision. Sania reassess for bathroom safety to have a tub chair if experiencing unsteady feeling in shower. Grab rails discussed but not rec at this time throughout home as option to improve safety in the future. OT to address as IADL as he is more familiar with participant. Par is functioning at baseline since last PT discharge despite recent falls. No skilled PT indicated however family made aware to notify PT/ [facility] if any new falls since med changes have been made to stabilize BP for further assessment. OT notified of follow up regarding bathroom safety. Plan: PT will follow through IDT for any further PT needs documented in this encounter Plan of Treatment Upcoming Encounters Date Type Department Care Team (Late st Contact Info) Description 09/06/2025 Clinical Support [facility] [address] [place] [phone] Federica Quintana LPN 09/06/2025 8:00 AM EST [facility] / [facility] [address] [place] [phone] Tiana Sibley 09/06/2025 12:15 PM EST Treatment [facility] [address] [place] [phone] Antonio Andrade OT 09/06/2025 5:30 PM EST [facility] / [facility] Visit [facility] [address] [place] [phone] Daksha Yates 09/07/2025 8:30 AM EST [facility] / [facility] Visit [facility] [address] [place] [phone] Melissa Raza 09/07/2025 12:30 PM EST [facility] [address] [place] [address] Melissa Raza 09/07/2025 5:30 PM EST [facility] / [facility] [address] [place] [address] Daksha Yates 09/08/2025 8:30 AM EST [facility] [address] [place] [address] Tiana Sibley 09/08/2025 12:30 PM EST [facility] [address] [place] [phone] Daksha Yates 09/08/2025 5:30 PM EST [facility] / [facility] [address] [place] [phone] Daksha Yates 09/09/2025 8:30 AM EST [facility] / [facility] [address] [place] [phone] Tiana Sibley 09/09/2025 12:30 PM EST [facility] [address] [place] [phone] Daksha Yates 09/09/2025 5:30 PM EST [facility] [address] [place] [phone] Tiana Sibley 09/10/2025 9:00 AM EST [facility] [address] [place] [phone] Tiana Sibley 09/10/2025 12:00 PM EST [facility] [address] [place] [phone] Brigida Hendricks 09/10/2025 5:00 PM EST [facility] [address] [place] [phone] Tiana Sibley 09/11/2025 7:30 AM EST [facility] Home [facility] / [facility] [place] [facility] [address] [place] [phone] Brigida Hendricks 09/11/2025 12:30 PM EST [facility] / [facility] [place] [facility] [address] [place] [phone] Brigida Hendricks 09/11/2025 5:30 PM EST [facility] [address] [place] [phone] Brigida Hendricks 09/12/2025 8:00 AM EST [facility] [address] [place] [phone] Melissa Raza 09/12/2025 12:30 PM EST [facility] Home [facility] / [facility] [address] [place] [phone] Melissa Raza 09/12/2025 5:30 PM EST [facility] / [facility] [address] [place] [phone] Daksha Yates 09/13/2025 Clinical Support [facility] [address] [place] [phone] Federica Quintana LPN 09/13/2025 8:00 AM EST [facility] [address] [place] [phone] Tiana Sibley 09/13/2025 12:30 PM EST [facility] / [facility] [address] [place] [phone] Lata Ford 09/13/2025 5:30 PM EST [facility] / [facility] [address] [place] [phone] Daksha Yates 09/14/2025 8:00 AM EST [facility] Home [facility] / [facility] [address] [place] [phone] Melissa Raza 09/14/2025 12:30 PM EST [facility] Home [facility] / [facility] [address] [place] [phone] Melissa Raza 09/14/2025 5:30 PM EST [facility] Home [facility] / [facility] [address] [place] [phone] Daksha Yates 09/15/2025 8:00 AM EST [facility] / [facility] [address] [place] [phone] Tiana Sibley 09/15/2025 12:30 PM EST [facility] Home [facility] / [facility] [address] [place] [phone] Daksha Yates 09/15/2025 5:30 PM EST [facility] Home [facility] / [facility] [address] [place] [phone] Daksha Yates 09/16/2025 8:30 AM EST [facility] Home [facility] / [facility] [address] [place] [address] Tiana Sibley 09/16/2025 12:30 PM EST [facility] / [facility] [address] [place] [address] Daksha Yates 09/16/2025 5:30 PM EST [facility] Home [facility] / [facility] [address] [place] [address] Tiana Sibley 09/17/2025 8:30 AM EST [facility] [address] [place] [phone] Tiana Sibley 09/17/2025 12:30 PM EST [facility] [address] [place] [phone] Tiana Sibley 09/17/2025 5:30 PM EST [facility] [address] [place] [phone] Tiana Sibley 09/18/2025 8:00 AM EST [facility] [address] [place] [phone] [facility] 12:30 PM EST [facility] [address] [place] [phone] [facility]/18/2025 5:30 PM EST [facility] / [facility] [address] [place] [phone] Daksha Yates 09/19/2025 8:00 AM EST [facility] Home [facility] / [facility] [address] [place] [address] Melissa Raza 09/19/2025 12:30 PM EST [facility] Home [facility] / [facility] [address] [place] [address] Melissa Raza 09/19/2025 5:30 PM EST [facility] Home [facility] / [facility] [address] [place] [address] Daksha Yates 09/20/2025 Clinical Support [facility] [address] [place] [address] Federica Quintana LPN 09/20/2025 8:00 AM EST [facility] / [facility] [address] [place] [address] Tiana Sibley 09/20/2025 12:30 PM EST [facility] / [facility] [address] [place] [address] Lata Ford 09/20/2025 5:30 PM EST [facility] Home [facility] / [facility] [address] [place] [address] Daksha Yates 09/21/2025 8:00 AM EST [facility] Home [facility] / [facility] [address] [place] [phone] Melissa Raza 09/21/2025 12:30 PM EST [facility] Home [facility] / [facility] [address] [place] [phone] Ry Melissa 09/21/2025 5:30 PM EST [facility] Home [facility] / [facility] [address] [place] [address] Daksha Yates 09/22/2025 8:00 AM EST [facility] / [facility] [address] [place] [address] Tiana Sibley 09/22/2025 12:30 PM EST [facility] / [facility] [address] [place] [phone] Daksha Yates 09/22/2025 5:30 PM EST [facility] / [facility] [address] [place] [phone] [facility]/23/2025 8:30 AM EST [facility] / [facility] [address] [place] [address] Tiana Sibley 09/23/2025 12:30 PM EST [facility] Home [facility] / [facility] [address] [place] [phone] Daksha Yates 09/23/2025 5:30 PM EST [facility] Home [facility] / [facility] [address] [place] [address] Tiana Sibley 09/24/2025 8:30 AM EST [facility] Home [facility] / [facility] [address] [place] [phone] Tiana Sibley 09/24/2025 12:30 PM EST [facility] Home [facility] / [facility] [address] [place] [phone] Tiana Sibley 09/24/2025 5:00 PM EST [facility] Home [facility] / [facility] [address] [place] [phone] Tiana Sibley 09/25/2025 8:30 AM EST [facility] / [facility] [address] [place] [phone] Brigida Hendricks 09/25/2025 12:30 PM EST [facility] / [facility] [address] [place] [phone] Brigida Hendricks 09/25/2025 5:30 PM EST [facility] / [facility] [address] [place] [phone] Brigida Hendricks 09/26/2025 8:00 AM EST [facility] Home [facility] / [facility] [address] [place] [phone] Melissa Raza 09/26/2025 12:30 PM EST [facility] Home [facility] / [facility] [address] [place] [phone] Melissa Raza 09/26/2025 5:30 PM EST [facility] / [facility] [address] [place] [phone] Daksha Yates 09/27/2025 Clinical [facility] [address] [place] [phone] Federica Quintana LPN 09/27/2025 8:00 AM EST [facility] [address] [place] [phone] Tiana Sibley 09/27/2025 12:30 PM EST [facility] / [facility] [address] [place] [address] Lata Ford 09/27/2025 5:30 PM EST [facility] / [facility] [address] [place] [address] Daksha Yates 09/28/2025 8:00 AM EST [facility] / [facility] [address] [place] [address] Melissa Raza 09/28/2025 12:30 PM EST [facility] / [facility] [address] [place] [phone] Melissa Raza 09/28/2025 5:30 PM EST [facility] / [facility] [address] [place] [address] Daksha Yates 09/29/2025 8:00 AM EST [facility] / [facility] [address] [place] [address] Tiana Sibley 09/29/2025 12:30 PM EST [facility] / [facility] [address] [place] [address] Daksha Yates 09/29/2025 5:30 PM EST [facility] / [facility] [address] [place] [address] Daksha Yates 09/30/2025 8:30 AM EST [facility] / [facility] [address] [place] [address] Tiana Sibley 09/30/2025 12:30 PM EST [facility] / [facility] [address] [place] [address] Daksha Yates 09/30/2025 5:30 PM EST [facility] / [facility] [address] [place] [address] Tiana Sibley 10/01/2025 8:30 AM EST [facility] [address] [place] [address] Tiana Sibley 10/01/2025 12:30 PM EST [facility] Home [facility] / [facility] [address] [place] [address] Tiana Sibley 10/01/2025 5:30 PM EST [facility] [address] [place] [phone] Tiana Sibley 10/02/2025 8:00 AM EST [facility] [address] [place] [address] Daksha Yates 10/02/2025 12:30 PM EST [facility] / [facility] [address] [place] [address] DansDaksha harris 10/02/2025 5:30 PM EST [facility] / [facility] [address] [place] [address] Daksha Yates 10/03/2025 8:00 AM EST [facility] [address] [place] [address] Melissa Raza 10/03/2025 12:30 PM EST [facility] Home [facility] / [facility] [address] [place] [address] Melissa Raza 10/03/2025 5:30 PM EST [facility] / [facility] [address] [place] [address] Daksha Yates 10/04/2025 [facility] Support [facility] [address] [place] [address] Federica Quintana LPN 10/04/2025 8:00 AM EST [facility] / [facility] [address] [place] [phone] Tiana Sibley 10/04/2025 12:30 PM EST [facility] Home [facility] / [facility] [address] [place] [phone] Lata Ford 10/04/2025 5:30 PM EST [facility] / [facility] [address] [place] [phone] Daksha Yates 10/05/2025 8:00 AM EST [facility] / [facility] [address] [place] [phone] Melissa Raza 10/05/2025 12:30 PM EST [facility] / [facility] [address] [place] [phone] Melissa Raza 10/05/2025 5:30 PM EST [facility] / [facility] [address] [place] [address] Trudy, Daksha 10/06/2025 8:00 AM EST [facility] Home [facility] / [facility] [address] [place] [address] Tiana Sibley 10/06/2025 12:30 PM EST [facility] Home [facility] / [facility] [address] [place] [address] Daksha Yates 10/06/2025 5:30 PM EST [facility] Home [facility] / [facility] [address] [place] [phone] Daksha Yates 10/07/2025 8:30 AM EST [facility] Home [facility] / [facility] [address] [place] [address] Tiana Sibley 10/07/2025 12:30 PM EST [facility] Home [facility] / [facility] [address] [place] [phone] KeshaDaksha harris 10/07/2025 5:30 PM EST [facility] Home [facility] / [facility] [address] [place] [phone] Tiana Sibley 10/08/2025 8:30 AM EST [facility] Home [facility] / [facility] [address] [place] [phone] Tiana Sibley 10/08/2025 12:30 PM EST [facility] / [facility] [address] [place] [phone] Tiana Sibley 10/08/2025 5:00 PM EST [facility] / [facility] [address] [place] [address] Tiana Sibley 10/09/2025 8:30 AM EST [facility] / [facility] [address] [place] [address] Brigida Hendricks 10/09/2025 12:30 PM EST [facility] Home [facility] / [facility] [address] [place] [address] Brigida Hendricks 10/09/2025 5:30 PM EST [facility] / [facility] [address] [place] [address] Brigida Hendricks 10/10/2025 8:00 AM EST [facility] / [facility] [address] [place] [address] Melissa Raza 10/10/2025 12:30 PM EST [facility] / [facility] [address] [place] [phone] Melissa Raza 10/10/2025 5:30 PM EST [facility] / [facility] [address] [place] [phone] Daksha Yates 10/11/2025 8:00 AM EST [facility] / [facility] [address] [place] [address] Tiana Sibley 10/11/2025 12:30 PM EST [facility] / [facility] [address] [place] [address] Lata Ford 10/11/2025 5:30 PM EST [facility] / [facility] [address] [place] [address] Daksha Yates 10/12/2025 8:00 AM EST [facility] / [facility] [address] [place] [address] Melissa Raza 10/12/2025 12:30 PM EST [facility] / [facility] [address] [place] [phone] Melissa Raza 10/12/2025 5:30 PM EST [facility] / [facility] [address] [place] [phone] Daksha Yates 10/13/2025 8:00 AM EST [facility] / [facility] [address] [place] [phone] Tiana Sibley 10/13/2025 12:30 PM EST [facility] / [facility] [address] [place] [phone] Daksha Yates 10/13/2025 5:30 PM EST [facility] / [facility] [address] [place] [phone] DansDaksha harris 10/14/2025 8:30 AM EST [facility] / [facility] [address] [place] [phone] Tiana Sibley 10/14/2025 12:30 PM EST [facility] [address] [place] [phone] Daksha Yates 10/14/2025 5:30 PM EST [facility] / [facility] [address] [place] [address] Tiana Sibley 10/15/2025 8:30 AM EST [facility] / [facility] [address] [place] [phone] Tiana Sibley 10/15/2025 12:30 PM EST [facility] / [facility] [address] [place] [phone] Tiana Sibley 10/15/2025 5:30 PM EST [facility] / [facility] [place] [facility] [address] [place] [phone] Tiana Sibley 10/16/2025 8:00 AM EST [facility] / [facility] [address] [place] [phone] Trudy [facility] 10/16/2025 12:30 PM EST [facility] / [facility] [place] [facility] [address] [place] [phone] Dansereadaniel, [facility] 10/16/2025 5:30 PM EST [facility] / [facility] [address] [place] [phone] Dansereau, [facility] 10/17/2025 8:00 AM EST [facility] / [facility] [address] [place] [phone] Melissa Raza 10/17/2025 12:30 PM EST [facility] / [facility] [address] [place] [phone] Melissa Raza 10/17/2025 5:30 PM EST [facility] / [facility] [address] [place] [phone] Daksha Yates 10/18/2025 8:00 AM EST [facility] / [facility] [address] [place] [phone] Tiana Sibley 10/18/2025 12:30 PM EST [facility] / [facility] [address] [place] [phone] Lata Ford 10/18/2025 5:30 PM EST [facility] / [facility] [address] [place] [phone] Daksha Yates 10/19/2025 8:00 AM EST [facility] / [facility] [address] [place] [phone] Melissa Raza 10/19/2025 12:30 PM EST [facility] / [facility] [address] [place] [phone] Melissa Raza 10/19/2025 5:30 PM EST [facility] / [facility] [address] [place] [phone] Daksha Yates 10/20/2025 8:00 AM EST [facility] / [facility] [address] [place] [phone] Tiana Sibley 10/20/2025 12:30 PM EST [facility] / [facility] [address] [place] [phone] Daksha Yates 10/20/2025 5:30 PM EST [facility] / [facility] [address] [place] [phone] Daksha Yates 10/21/2025 8:30 AM EST [facility] / [facility] [address] [place] [address] Tiana Sibley 10/21/2025 12:30 PM EST [facility] / [facility] [address] [place] [phone] Daksha Yates 10/21/2025 5:30 PM EST [facility] / [facility] [address] [place] [phone] Tiana Sibley 10/22/2025 8:30 AM EST [facility] / [facility] [address] [place] [phone] Tiana Sibley 10/22/2025 12:30 PM EST [facility] / [facility] [address] [place] [phone] Tiana Sibley 10/22/2025 5:00 PM EST [facility] / [facility] [address] [place] [phone] Tiana Sibley 10/23/2025 8:30 AM EST [facility] / [facility] [address] [place] [phone] Brigida Hendricks 10/23/2025 12:30 PM EST [facility] / [facility] [address] [place] [phone] Brigida Hendricks 10/23/2025 5:30 PM EST [facility] / [facility] [address] [place] [address] Brigida Hendricks 10/24/2025 8:00 AM EST [facility] / [facility] [address] [place] [address] Melissa Raza 10/24/2025 12:30 PM EST [facility] / [facility] [address] [place] [address] Melissa Raza 10/24/2025 5:30 PM EST [facility] / [facility] [address] [place] [address] Daksha Yates 10/25/2025 8:00 AM EST [facility] / [facility] [address] [place] [address] Tiana Sibley 10/25/2025 12:30 PM EST [facility] / [facility] [address] [place] [address] Lata Ford 10/25/2025 5:30 PM EST [facility] / [facility] [address] [place] [phone] Daksha Yates 10/26/2025 8:00 AM EST [facility] / [facility] [address] [place] [phone] Melissa Raza 10/26/2025 12:30 PM EST [facility] / [facility] [address] [place] [address] Melissa Raza 10/26/2025 5:30 PM EST [facility] / [facility] [address] [place] [address] Daksha Yates 10/27/2025 8:00 AM EST [facility] / [facility] [address] [place] [address] Tiana Sibley 10/27/2025 12:30 PM EST [facility] / [facility] [address] [place] [address] Daksha Yates 10/27/2025 5:30 PM EST [facility] / [facility] [address] [place] [phone] Daksha Yates 10/28/2025 8:30 AM EST [facility] / [facility] [address] [place] [phone] Tiana Sibley 10/28/2025 12:30 PM EST [facility] / [facility] [address] [place] [phone] Daksha Yates 10/28/2025 5:30 PM EST [facility] / [facility] [address] [place] [phone] Tiana Sibley 10/29/2025 8:30 AM EST [facility] / [facility] [address] [place] [address] Tiana Sibley 10/29/2025 12:30 PM EST [facility] / [facility] [address] [place] [address] Tiana Sibley 10/29/2025 5:30 PM EST [facility] / [facility] [address] [place] [address] Tiana Sibley 10/30/2025 8:00 AM EST [facility] / [facility] [address] [place] [phone] [facility]/30/[facility] 12:30 PM EST [facility] / [facility] [address] [place] [phone] Daksha Yates 10/30/2025 5:30 PM EST [facility] / [facility] [address] [place] [phone] Daksha Yates 10/31/2025 8:00 AM EST [facility] / [facility] [address] [place] [phone] Melissa Raza 10/31/2025 12:30 PM EST [facility] / [facility] [address] [place] [phone] Melissa Raza 10/31/2025 5:30 PM EST [facility] [address] [place] [phone] Daksha Yates 11/01/2025 8:00 AM EST [facility] / [facility] [address] [place] [phone] Tiana Sibley 11/01/2025 12:30 PM EST [facility] / [facility] [address] [place] [address] Lata Ford 11/01/2025 5:30 PM EST [facility] / [facility] [address] [place] [address] Daksha Yates 11/02/2025 8:00 AM EST [facility] / [facility] [address] [place] [address] Melissa Raza 11/02/2025 12:30 PM EST [facility] / [facility] [address] [place] [phone] Melissa Raza 11/02/2025 5:30 PM EST [facility] / [facility] [address] [place] [phone] DansDaksha harris 11/03/2025 8:00 AM EST [facility] / [facility] [address] [place] [phone] Tiana Sibley 11/03/2025 12:30 PM EST [facility] / [facility] [place] [facility] [address] [place] [phone] [facility]ber[facility] 11/03/2025 5:30 PM EST [facility] / [facility] [address] [place] [phone] Dansereadaniel, [facility] 11/04/2025 8:30 AM EST [facility] / [facility] [address] [place] [phone] Tiana Sibley 11/04/2025 12:30 PM EST [facility] / [facility] [address] [place] [address] Daksha Yates 11/04/2025 5:30 PM EST [facility] / [facility] [address] [place] [address] Tiana Sibley documented as of this encounter Visit Diagnoses Not on filedocumented in this encounter Additional Health Concerns Assessment Noted Time PHQ-9 Depression Total Score: 3 03/25/20 25 11:12 AM EDT documented as of this encounter Care Teams [employer] Relationship Specialty Start Date End Date Reyna Zuniga NP [address] [address] PCP - General Family Medicine 11/06/24 documented as of this encounter
--- OUTSIDE RECORDS SUMMARY | 2025-09-02 12:30 | XMS_ITS | Encounter Summary ---
Author Organization [facility] Address [address] [place] [address] Care Team Providers Care Brooch Maker Novelty Name Role Phone Reyna Zuniga NP Primary Care Provider [phone] Encounter Details Date Type Department Care Team (Late st Contact Info) Description 09/02/2025 12:30 PM EST PACE Home Care / PACE Home Visit [facility] [address] [place] [phone] Lata Ford Social History Tobacco Use Types [...] Support [facility] [address] [place] [phone] Federica Quintana LPN 09/06/2025 8:00 AM EST PACE Home Care / PACE Home Visit [facility] [address] [place] [phone] Tiana Sibley 09/06/2025 12:15 PM EST Treatment Anne Marie [facility] [place] Occupational Therapy [address] [place] [address] Antonio Andrade OT 09/06/2025 5:30 PM EST PACE Home Care / PACE Home Visit [facility] [address] [place] [address] Daksha Yates 09/07/2025 8:30 AM EST PACE Home Care / PACE Home Visit [facility] [place] [facility] [address] [place] [address] Melissa Raza 09/07/2025 12:30 PM EST PACE Home Care / PACE Home Visit [facility] [place] [facility] [address] [place] [address] Melissa Raza 09/07/2025 5:30 PM EST PACE Home Care / PACE Home Visit [facility] [address] [place] [phone] [facility]/08/[facility] 8:30 AM EST PACE Home Care / PACE Home Visit [facility] [place] [facility] [address] [place] [phone] Tiana Sibley 09/08/2025 12:30 PM EST PACE Home Care / PACE Home Visit [facility] [place] [facility] [address] [place] [phone] [facility] 09/08/2025 5:30 PM EST PACE Home Care / [facility] [address] [place] [phone] [facility] 09/09/2025 8:30 AM EST PACE Home Care / [facility] [address] [place] [phone] Tiana Sibley 09/09/2025 12:30 PM EST PACE Home Care / [facility] [address] [place] [address] Daksha Yates 09/09/2025 5:30 PM EST PACE Home Care / [facility] [address] [place] [address] Tiana Sibley 09/10/2025 9:00 AM EST PACE Home Care / [facility] [address] [place] [address] Tiana Sibley 09/10/2025 12:00 PM EST PACE Home Care / [facility] [address] [place] [phone] Brigida Hendricks 09/10/2025 5:00 PM EST PACE Home Care / [facility] [address] [place] [phone] Tiana Sibley 09/11/2025 7:30 AM EST PACE Home Care / [facility] [address] [place] [phone] Brigida Hendricks 09/11/2025 12:30 PM EST PACE Home Care / [facility] [address] [place] [phone] Brigida Hendricks 09/11/2025 5:30 PM EST PACE Home Care / [facility] [address] [place] [phone] Brigida Hendricks 09/12/2025 8:00 AM EST PACE Home Care / [facility] [address] [place] [phone] eMlissa Raza 09/12/2025 12:30 PM EST PACE Home Care / PACE Home Visit [facility] [place] [facility] [address] [place] [address] Melissa Raza 09/12/2025 5:30 PM EST PACE Home Care / PACE Home Visit [facility] [place] [facility] [address] [place] [address] Daksha Yates 09/13/2025 Clinical Support [facility] [place] [facility] [address] [place] [address] Federica Quintana LPN 09/13/2025 8:00 AM EST PACE Home Care / PACE Home Visit [facility] [place] [facility] [address] [place] [phone] Tiana Sibley 09/13/2025 12:30 PM EST PACE Home Care / PACE Home Visit [facility] [place] [facility] [address] [place] [phone] Lata Ford 09/13/2025 5:30 PM EST PACE Home Care / PACE Home Visit [facility] [place] [facility] [address] [place] [phone] Daksha Yates 09/14/2025 8:00 AM EST PACE Home Care / PACE Home Visit [facility] [place] [facility] [address] [place] [phone] Melissa Raza 09/14/2025 12:30 PM EST PACE Home Care / [facility] [address] [place] [phone] Melissa Raza 09/14/2025 5:30 PM EST PACE Home Care / [facility] Visit [facility] [address] [place] [phone] Daksha Yates 09/15/2025 8:00 AM EST PACE Home Care / [facility] [address] [place] [address] Tiana Sibley 09/15/2025 12:30 PM EST PACE Home Care / [facility] [address] [place] [address] Daksha Yates 09/15/2025 5:30 PM EST PACE Home Care / [facility] [address] [place] [address] Daksha Yates 09/16/2025 8:30 AM EST PACE Home Care / [facility] [address] [place] [address] Tiana Sibley 09/16/2025 12:30 PM EST PACE Home Care / [facility] [address] [place] [address] Daksha Yates 09/16/2025 5:30 PM EST PACE Home Care / [facility] [address] [place] [address] Tiana Sibley 09/17/2025 8:30 AM EST PACE Home Care / [facility] [address] [place] [address] Tiana Sibley 09/17/2025 12:30 PM EST PACE Home Care / [facility] [address] [place] [phone] Tiana Sibley 09/17/2025 5:30 PM EST PACE Home Care / [facility] [address] [place] [address] Tiana Sibley 09/18/2025 8:00 AM EST PACE Home Care / [facility] Visit [facility] [address] [place] [address] Daksha Yates 09/18/2025 12:30 PM EST PACE Home Care / [facility] Visit [facility] [address] [place] [address] Daksha Yates 09/18/2025 5:30 PM EST PACE Home Care / [facility] Visit [facility] [address] [place] [address] Daksha Yates 09/19/2025 8:00 AM EST PACE Home Care / [facility] Visit [facility] [address] [place] [address] Melissa Raza 09/19/2025 12:30 PM EST PACE Home Care / [facility] [address] [place] [address] Melissa Raza 09/19/2025 5:30 PM EST PACE Home Care / [facility] [address] [place] [address] Daksha Yates 09/20/2025 Clinical Support [facility] [place] [facility] [address] [place] [address] Federica Quintana LPN 09/20/2025 8:00 AM EST PACE Home Care / [facility] [address] [place] [address] Tiana Sibley 09/20/2025 12:30 PM EST PACE Home Care / [facility] [address] [place] [address] Lata Ford 09/20/2025 5:30 PM EST PACE Home Care / [facility] [address] [place] [address] Daksha Yates 09/21/2025 8:00 AM EST PACE Home Care / [facility] [address] [place] [address] Melissa Raza 09/21/2025 12:30 PM EST PACE Home Care / [facility] [address] [place] [address] Melissa Raza 09/21/2025 5:30 PM EST PACE Home Care / [facility] [address] [place] [phone] Daksha Yates 09/22/2025 8:00 AM EST PACE Home Care / [facility] [address] [place] [phone] Tiana Sibley 09/22/2025 12:30 PM EST PACE Home Care / [facility] [address] [place] [phone] [facility]/22/2025 5:30 PM EST PACE Home Care / [facility] [address] [place] [phone] [facility] 09/23/2025 8:30 AM EST PACE Home Care / [facility] [place] [facility] [address] [place] [phone] Tiana Sibley 09/23/2025 12:30 PM EST PACE Home Care / [facility] [place] [facility] [address] [place] [phone] Daksha Yates 09/23/2025 5:30 PM EST PACE Home Care / [facility] [place] [facility] [address] [place] [address] Tiana Sibley 09/24/2025 8:30 AM EST PACE Home Care / [facility] [address] [place] [phone] Tiana Sibley 09/24/2025 12:30 PM EST PACE Home Care / [facility] [address] [place] [phone] Tiana Sibley 09/24/2025 5:00 PM EST PACE Home Care / [facility] [address] [place] [phone] Tiana Sibley 09/25/2025 8:30 AM EST PACE Home Care / [facility] [place] [facility] [address] [place] [phone] Brigida Hendricks 09/25/2025 12:30 PM EST PACE Home Care / [facility] [address] [place] [phone] Brigida Hendricks 09/25/2025 5:30 PM EST PACE Home Care / [facility] [address] [place] [phone] Brigida Hendricks 09/26/2025 8:00 AM EST PACE Home Care / [facility] [address] [place] [phone] Melissa Raza 09/26/2025 12:30 PM EST PACE Home Care / [facility] [address] [place] [phone] Melissa aRza 09/26/2025 5:30 PM EST PACE Home Care / PACE Home Visit [facility] [address] [place] [phone] Daksha Yates 09/27/2025 Clinical Support [facility] [address] [place] [phone] Federica Quintana LPN 09/27/2025 8:00 AM EST PACE Home Care / PACE Home Visit [facility] [place] [facility] [address] [place] [phone] Tiana Sibley 09/27/2025 12:30 PM EST PACE Home Care / PACE Home Visit [facility] [address] [place] [phone] Lata Ford 09/27/2025 5:30 PM EST PACE Home Care / PACE Home Visit [facility] [address] [place] [phone] Daksha Yates 09/28/2025 8:00 AM EST PACE Home Care / PACE Home Visit [facility] [address] [place] [phone] Melissa Raza 09/28/2025 12:30 PM EST PACE Home Care / PACE Home Visit [facility] [place] [facility] [address] [place] [phone] Melissa Raza 09/28/2025 5:30 PM EST PACE Home Care / PACE Home Visit [facility] [address] [place] [phone] Daksha Yates 09/29/2025 8:00 AM EST PACE Home Care / PACE Home Visit [facility] [address] [place] [phone] Tiana Sibley 09/29/2025 12:30 PM EST PACE Home Care / [facility] [address] [place] [address] Daksha Yates 09/29/2025 5:30 PM EST PACE Home Care / [facility] [address] [place] [address] Daksha Yates 09/30/2025 8:30 AM EST PACE Home Care / [facility] [address] [place] [phone] Tiana Sibley 09/30/2025 12:30 PM EST PACE Home Care / [facility] [address] [place] [phone] Daksha Yates 09/30/2025 5:30 PM EST PACE Home Care / [facility] [address] [place] [phone] Tiana Sibley 10/01/2025 8:30 AM EST PACE Home Care / [facility] [address] [place] [phone] Tiana Sibley 10/01/2025 12:30 PM EST PACE Home Care / [facility] [address] [place] [phone] Tiana Sibley 10/01/2025 5:30 PM EST PACE Home Care / [facility] [address] [place] [phone] Tiana Sibley 10/02/2025 8:00 AM EST PACE Home Care / [facility] [address] [place] [phone] Daksha Yates 10/02/2025 12:30 PM EST PACE Home Care / [facility] [address] [place] [address] Daksha Yates 10/02/2025 5:30 PM EST PACE Home Care / [facility] Visit [facility] [address] [place] [phone] Daksha Yates 10/03/2025 8:00 AM EST PACE Home Care / [facility] Visit [facility] [address] [place] [phone] Melissa Raza 10/03/2025 12:30 PM EST PACE Home Care / [facility] [address] [place] [phone] Melissa Raza 10/03/2025 5:30 PM EST PACE Home Care / PACE Home Visit [facility] [address] [place] [phone] [facility] Clinical Support [facility] [address] [place] [phone] Federica Quintana LPN 10/04/2025 8:00 AM EST PACE Home Care / [facility] [address] [place] [phone] Tiana Sibley 10/04/2025 12:30 PM EST PACE Home Care / [facility] [address] [place] [phone] Lata Ford 10/04/2025 5:30 PM EST PACE Home Care / [facility] [address] [place] [phone] Daksha Yates 10/05/2025 8:00 AM EST PACE Home Care / [facility] [address] [place] [address] Melissa Raza 10/05/2025 12:30 PM EST PACE Home Care / [facility] [address] [place] [address] Melissa Raza 10/05/2025 5:30 PM EST PACE Home Care / [facility] [address] [place] [phone] Daksha Yates 10/06/2025 8:00 AM EST PACE Home Care / [facility] [address] [place] [phone] Tiana Sibley 10/06/2025 12:30 PM EST PACE Home Care / [facility] [address] [place] [phone] [facility]/06/2025 5:30 PM EST PACE Home Care / [facility] [address] [place] [phone] Daksha Yates 10/07/2025 8:30 AM EST PACE Home Care / [facility] [address] [place] [phone] Tiana Sibley 10/07/2025 12:30 PM EST PACE Home Care / [facility] [address] [place] [phone] Daksha Yates 10/07/2025 5:30 PM EST PACE Home Care / [facility] [address] [place] [phone] Tiana Sibley 10/08/2025 8:30 AM EST PACE Home Care / [facility] [address] [place] [phone] Tiana Sibley 10/08/2025 12:30 PM EST PACE Home Care / [facility] [address] [place] [phone] Tiana Sibley 10/08/2025 5:00 PM EST PACE Home Care / [facility] [address] [place] [phone] Tiana Sibley 10/09/2025 8:30 AM EST PACE Home Care / [facility] [address] [place] [phone] Brigida Hendricks 10/09/2025 12:30 PM EST PACE Home Care / [facility] [address] [place] [phone] Brigida Hendricks 10/09/2025 5:30 PM EST PACE Home Care / [facility] [address] [place] [phone] Brigida Hendricks 10/10/2025 8:00 AM EST PACE Home Care / [facility] [address] [place] [phone] Melissa Raza 10/10/2025 12:30 PM EST PACE Home Care / [facility] [address] [place] [phone] Melissa Raza 10/10/2025 5:30 PM EST PACE Home Care / [facility] [address] [place] [phone] Daksha Yates 10/11/2025 8:00 AM EST PACE Home Care / [facility] [address] [place] [address] Tiana Sibley 10/11/2025 12:30 PM EST PACE Home Care / [facility] [address] [place] [phone] Lata Ford 10/11/2025 5:30 PM EST PACE Home Care / [facility] [address] [place] [phone] Daksha Yates 10/12/2025 8:00 AM EST PACE Home Care / [facility] [address] [place] [phone] Melissa Raza 10/12/2025 12:30 PM EST PACE Home Care / [facility] [address] [place] [phone] Melissa Raza 10/12/2025 5:30 PM EST PACE Home Care / [facility] [address] [place] [phone] Daksha Yates 10/13/2025 8:00 AM EST PACE Home Care / [facility] [address] [place] [phone] Tinaa Sibley 10/13/2025 12:30 PM EST PACE Home Care / [facility] [address] [place] [phone] Daksha Yates 10/13/2025 5:30 PM EST PACE Home Care / [facility] [address] [place] [address] Daksha Yates 10/14/2025 8:30 AM EST PACE Home Care / [facility] [address] [place] [address] Tiana Sibley 10/14/2025 12:30 PM EST PACE Home Care / [facility] [address] [place] [address] Daksha Yates 10/14/2025 5:30 PM EST PACE Home Care / [facility] [address] [place] [phone] Tiana Sibley 10/15/2025 8:30 AM EST PACE Home Care / [facility] [address] [place] [address] Tiana Sibley 10/15/2025 12:30 PM EST PACE Home Care / [facility] [address] [place] [phone] Tiana Sibley 10/15/2025 5:30 PM EST PACE Home Care / [facility] [address] [place] [phone] Tiana Sibley 10/16/2025 8:00 AM EST PACE Home Care / [facility] [address] [place] [phone] Daksha Yates 10/16/2025 12:30 PM EST PACE Home Care / [facility] [address] [place] [phone] Daksha Yates 10/16/2025 5:30 PM EST PACE Home Care / [facility] [address] [place] [address] Daksha Yates 10/17/2025 8:00 AM EST PACE Home Care / [facility] [address] [place] [address] Melissa Raza 10/17/2025 12:30 PM EST PACE Home Care / [facility] [address] [place] [phone] Melissa Raza 10/17/2025 5:30 PM EST PACE Home Care / [facility] [address] [place] [phone] Daksha Yates 10/18/2025 8:00 AM EST PACE Home Care / [facility] [address] [place] [phone] Tiana Sibley 10/18/2025 12:30 PM EST PACE Home Care / [facility] [address] [place] [phone] Lata Ford 10/18/2025 5:30 PM EST PACE Home Care / [facility] [address] [place] [phone] Daksha Yates 10/19/2025 8:00 AM EST PACE Home Care / [facility] [address] [place] [phone] Melissa Raza 10/19/2025 12:30 PM EST PACE Home Care / [facility] [address] [place] [phone] Melissa Raza 10/19/2025 5:30 PM EST PACE Home Care / [facility] [address] [place] [address] Daksha Yates 10/20/2025 8:00 AM EST PACE Home Care / [facility] [address] [place] [address] Tiana Sibley 10/20/2025 12:30 PM EST PACE Home Care / [facility] [address] [place] [address] Daksha Yates 10/20/2025 5:30 PM EST PACE Home Care / [facility] [address] [place] [phone] Daksha Yates 10/21/2025 8:30 AM EST PACE Home Care / [facility] [address] [place] [phone] Tiana Sibley 10/21/2025 12:30 PM EST PACE Home Care / [facility] [address] [place] [phone] Daksha Yates 10/21/2025 5:30 PM EST PACE Home Care / [facility] [address] [place] [phone] Tiana Sibley 10/22/2025 8:30 AM EST PACE Home Care / [facility] [address] [place] [phone] Tiana Sibley 10/22/2025 12:30 PM EST PACE Home Care / [facility] [address] [place] [phone] Tiana Sibley 10/22/2025 5:00 PM EST PACE Home Care / [facility] [address] [place] [address] Tiana Sibley 10/23/2025 8:30 AM EST PACE Home Care / [facility] [address] [place] [phone] Brigida Hendricks 10/23/2025 12:30 PM EST PACE Home Care / [facility] [address] [place] [phone] Brigida Hendricks 10/23/2025 5:30 PM EST P[facility] Home [facility] / [facility] Services [address] [place] [phone] Brigida Hendricks 10/24/2025 8:00 AM EST [facility] / [facility] [address] [place] [phone] Melissa Raza 10/24/2025 12:30 PM EST [facility] Home [facility] / [facility] [address] [place] [phone] Melissa Raza 10/24/2025 5:30 PM EST [facility] Home [facility] / [facility] [address] [place] [phone] Daksha Yates 10/25/2025 8:00 AM EST [facility] Home [facility] / [facility] [address] [place] [phone] Tiana Sibley 10/25/2025 12:30 PM EST [facility] Home [facility] / [facility] [address] [place] [phone] Lata Ford 10/25/2025 5:30 PM EST [facility] Home [facility] / [facility] [address] [place] [phone] Daksha Yates 10/26/2025 8:00 AM EST [facility] Home [facility] / [facility] [address] [place] [phone] Melissa Raza 10/26/2025 12:30 PM EST [facility] Home [facility] / [facility] [address] [place] [phone] Melissa Raza 10/26/2025 5:30 PM EST [facility] Home [facility] / [facility] [address] [place] [phone] [facility]/27/[facility] 8:00 AM EST [facility] Home [facility] / [facility] [address] [place] [phone] Tiana Sibley 10/27/2025 12:30 PM EST [facility] Home [facility] / [facility] [address] [place] [phone] [facility]/27/2025 5:30 PM EST [facility] Home [facility] / [facility] [address] [place] [phone] Dansereadaniel [facility] 10/28/2025 8:30 AM EST [facility] Home [facility] / [facility] [place] [facility] [address] [place] [phone] Tiana Sibley 10/28/2025 12:30 PM EST [facility] Home [facility] / [facility] [address] [place] [phone] Daksha Yates 10/28/2025 5:30 PM EST [facility] Home [facility] / [facility] [address] [place] [phone] Tiaan Sibley 10/29/2025 8:30 AM EST [facility] Home [facility] / [facility] [address] [place] [phone] Tiana Sibley 10/29/2025 12:30 PM EST [facility] Home [facility] / [facility] [address] [place] [phone] Tiana Sibley 10/29/2025 5:30 PM EST [facility] Home [facility] / [facility] [place] [facility] [address] [place] [phone] Tiana Sibley 10/30/2025 8:00 AM EST [facility] Home [facility] / [facility] [address] [place] [phone] Dansereadaniel [facility] 10/30/2025 12:30 PM EST [facility] Home [facility] / [facility] [facility] [place] [facility] [address] [place] [phone] Dansereau, [facility] 10/30/2025 5:30 PM EST [facility] Home [facility] / [facility] [place] [facility] [address] [place] [phone] Dansereau, [facility] 10/31/2025 8:00 AM EST [facility] Home [facility] / [facility] [place] [facility] [address] [place] [phone] Melissa Raza 10/31/2025 12:30 PM EST [facility] Home [facility] / [facility] [address] [place] [phone] Melissa Raza 10/31/2025 5:30 PM EST [facility] Home [facility] / [facility] [address] [place] [phone] Daksha Yates 11/01/2025 8:00 AM EST [facility] Home [facility] / [facility] [address] [place] [phone] Tiana Sibley 11/01/2025 12:30 PM EST [facility] Home [facility] / [facility] [address] [place] [phone] Lata Ford 11/01/2025 5:30 PM EST [facility] Home [facility] / [facility] [address] [place] [phone] Daksha Yates 11/02/2025 8:00 AM EST [facility] Home [facility] / [facility] [address] [place] [phone] Melissa Raza 11/02/2025 12:30 PM EST [facility] Home [facility] / [facility] [address] [place] [phone] Melissa Raza 11/02/2025 5:30 PM EST [facility] Home [facility] / [facility] [address] [place] [phone] Daksha Yates 11/03/2025 8:00 AM EST [facility] Home [facility] / [facility] [address] [place] [phone] Tiana Sibley 11/03/2025 12:30 PM EST [facility]ACE Home [facility] / [facility] [address] [place] [phone] Daksha Yates 11/03/2025 5:30 PM EST [facility] Home Care / [facility] Visit [facility] [address] [place] [phone] MeliadanielDaksha 11/04/2025 8:30 AM EST [facility] Home Care / [facility] Visit [facility] [address] [place] [phone] Tiana Sibley 11/04/2025 12:30 PM EST [facility] Home Care / [facility] Visit [facility] [address] [place] [phone] Daksha Yates 11/04/2025 5:30 PM EST [facility] Home [facility] / [facility] Visit [facility] [address] [place] [phone] Tiana Sibley documented as of this encounter Visit Diagnoses Not on filedocumented in this encounter Additional Health Concerns Assessment Noted Time PHQ-9 Depression Total Score: 3 03/25/20 11:12 AM EDT documented as of this encounter Care Teams [employer] Relationship Specialty Start Date End Date Reyna Zuniga NP [address] [place] [phone] PCP - General Family Medicine 11/06/24 documented as of this encounter
--- OUTSIDE RECORDS SUMMARY | 2025-09-02 16:30 | XMS_ITS | Encounter Summary ---
Author Organization [facility] Address [address] [place] [address] Care Team Providers Care Plumbing Engineer Name Role Phone Reyna Zuniga NP Primary Care Provider [phone] Encounter Details Date Type Department Care Team (Late st Contact Info) Description 09/02/2025 4:30 PM EST PACE Home Care / PACE Home Visit [facility] [address] [place] [phone] Lata Ford Social History Tobacco Use Types [...] Support [facility]un [facility] [address] [place] [phone] Federica Quintana LPN 09/06/2025 8:00 AM EST PACE Home Care / PACE Home Visit Anne Marie [facility] [address] [place] [phone] Tiana Sibley 09/06/2025 12:15 PM EST Treatment Anne Marie G[facility] [place] Occupational Therapy [address] [place] [address] Antonio Andrade OT 09/06/2025 5:30 PM EST PACE Home Care / PACE Home Visit [facility] [place] [facility] [address] [place] [address] Daksha Yates 09/07/2025 8:30 AM EST PACE Home Care / PACE Home Visit [facility] [place] [facility] [address] [place] [address] Melissa Raza 09/07/2025 12:30 PM EST PACE Home Care / PACE Home Visit [facility] [place] [facility] [address] [place] [address] Melissa Raza 09/07/2025 5:30 PM EST PACE Home Care / PACE Home Visit [facility] [place] [facility] [address] [place] [phone] [facility]/08/2025 8:30 AM EST PACE Home Care / PACE Home Visit [facility] Ma[facility] [place] [facility] [address] [place] [phone] Tiana Sibley 09/08/2025 12:30 PM EST PACE Home Care / PACE Home Visit [facility] [place] [facility] [address] [place] [phone] [facility] 09/08/2025 5:30 PM EST PACE Home Care / [facility] [address] [place] [phone] [facility] 09/09/2025 8:30 AM EST PACE Home Care / [facility] [address] [place] [phone] Tiana Sibley 09/09/2025 12:30 PM EST PACE Home Care / [facility] [address] [place] [address] Daksha Yates 09/09/2025 5:30 PM EST PACE Home Care / [facility] [place] [facility] [address] [place] [address] Tiana Sibley 09/10/2025 9:00 AM EST PACE Home Care / [facility] [place] [facility] [address] [place] [address] Tiana Sibley 09/10/2025 12:00 PM EST PACE Home Care / [facility] [place] [facility] [address] [place] [phone] Brigida Hendricks 09/10/2025 5:00 PM EST PACE Home Care / [facility] [place] [facility] [address] [place] [phone] Tiana Sibley 09/11/2025 7:30 AM EST PACE Home Care / [facility] [place] [facility] [address] [place] [phone] Brigida Hendricks 09/11/2025 12:30 PM EST PACE Home Care / [facility] [place] [facility] [address] [place] [phone] Brigida Hendricks 09/11/2025 5:30 PM EST PACE Home Care / [facility] [place] [facility] [address] [place] [phone] Brigida Hendricks 09/12/2025 8:00 AM EST PACE Home Care / [facility] [place] [facility] [address] [place] [phone] Melissa Raza 09/12/2025 12:30 PM EST PACE Home Care / PACE Home Visit [facility] Marie [facility] [place] [facility] [address] [place] [address] Melissa Raza 09/12/2025 5:30 PM EST PACE Home Care / PACE Home Visit [facility] Marie [facility] [place] [facility] [address] [place] [address] Daksha Yates 09/13/2025 Clinical Support [facility] [place] [facility] [address] [place] [address] Federica Quintana LPN 09/13/2025 8:00 AM EST PACE Home Care / PACE Home Visit [facility] [place] [facility] [address] [place] [phone] Tiana Sibley 09/13/2025 12:30 PM EST PACE Home Care / PACE Home Visit [facility] [place] [facility] [address] [place] [phone] Lata Ford 09/13/2025 5:30 PM EST PACE Home Care / PACE Home Visit [facility] Marie [facility] [place] [facility] [address] [place] [phone] Daksha Yates 09/14/2025 8:00 AM EST PACE Home Care / PACE Home Visit [facility] Marie [facility] [place] [facility] [address] [place] [phone] Melissa Raza 09/14/2025 12:30 PM EST PACE Home Care / [facility] [address] [place] [phone] Melissa Raza 09/14/2025 5:30 PM EST PACE Home Care / [facility] Visit [facility] [address] [place] [phone] Daksha Yates 09/15/2025 8:00 AM EST PACE Home Care / [facility] [place] [facility] [address] [place] [address] Tiana Sibley 09/15/2025 12:30 PM EST PACE Home Care / [facility] [address] [place] [address] Daksha Yates 09/15/2025 5:30 PM EST PACE Home Care / [facility] [address] [place] [address] Daksha Yates 09/16/2025 8:30 AM EST PACE Home Care / [facility] [address] [place] [address] Tiana Sibley 09/16/2025 12:30 PM EST PACE Home Care / [facility] [place] [facility] [address] [place] [address] Daksha Yates 09/16/2025 5:30 PM EST PACE Home Care / [facility] [place] [facility] [address] [place] [address] Tiana Sibley 09/17/2025 8:30 AM EST PACE Home Care / [facility] [address] [place] [address] Tiana Sibley 09/17/2025 12:30 PM EST PACE Home Care / [facility] [place] [facility] [address] [place] [phone] Tiana Sibley 09/17/2025 5:30 PM EST PACE Home Care / [facility] [address] [place] [address] Tiana Sibley 09/18/2025 8:00 AM EST PACE Home Care / [facility] Visit [facility] [address] [place] [address] Daksha Yates 09/18/2025 12:30 PM EST PACE Home Care / [facility] Visit [facility] [address] [place] [address] Daksha Yates 09/18/2025 5:30 PM EST PACE Home Care / [facility] Visit [facility] [address] [place] [address] Daksha Yates 09/19/2025 8:00 AM EST PACE Home Care / [facility] Visit [facility] [address] [place] [address] Melissa Raza 09/19/2025 12:30 PM EST PACE Home Care / [facility] Visit [facility] [address] [place] [address] Melissa Raza 09/19/2025 5:30 PM EST PACE Home Care / [facility] Visit [facility] [address] [place] [address] Daksha Yates 09/20/2025 Clinical Support [facility] [place] [facility] [address] [place] [address] Federica Quintana LPN 09/20/2025 8:00 AM EST PACE Home Care / [facility] Visit [facility] [address] [place] [address] Tiana Sibley 09/20/2025 12:30 PM EST PACE Home Care / [facility] [place] [facility] [address] [place] [address] Lata Ford 09/20/2025 5:30 PM EST PACE Home Care / [facility] [address] [place] [address] Daksha Yates 09/21/2025 8:00 AM EST PACE Home Care / [facility] [place] [facility] [address] [place] [address] Melissa Raza 09/21/2025 12:30 PM EST PACE Home Care / [facility] [place] [facility] [address] [place] [address] Melissa Raza 09/21/2025 5:30 PM EST PACE Home Care / [facility] [place] [facility] [address] [place] [phone] Daksha Yates 09/22/2025 8:00 AM EST PACE Home Care / [facility] [place] [facility] [address] [place] [phone] Tiana Sibley 09/22/2025 12:30 PM EST PACE Home Care / [facility] [place] [facility] [address] [place] [phone] [facility] 09/22/2025 5:30 PM EST PACE Home Care / [facility] [place] [facility] [address] [place] [phone] [facility] 09/23/2025 8:30 AM EST PACE Home Care / [facility] [place] [facility] [address] [place] [phone] Tiana Sibley 09/23/2025 12:30 PM EST PACE Home Care / [facility] [place] [facility] [address] [place] [phone] Daksha Yates 09/23/2025 5:30 PM EST PACE Home Care / [facility] [place] [facility] [address] [place] [address] Tiana Sibley 09/24/2025 8:30 AM EST PACE Home Care / [facility] [place] [facility] [address] [place] [phone] Tiana Sibley 09/24/2025 12:30 PM EST PACE Home Care / [facility] [place] [facility] [address] [place] [phone] Tiana Sibley 09/24/2025 5:00 PM EST PACE Home Care / [facility] [address] [place] [phone] Tiana Sibley 09/25/2025 8:30 AM EST PACE Home Care / [facility] [address] [place] [phone] Brigida Hendricks 09/25/2025 12:30 PM EST PACE Home Care / [facility] [address] [place] [phone] Brigida Hendricks 09/25/2025 5:30 PM EST PACE Home Care / [facility] [place] [facility] [address] [place] [phone] Brigida Hendricks 09/26/2025 8:00 AM EST PACE Home Care / [facility] [place] [facility] [address] [place] [phone] Melissa Raza 09/26/2025 12:30 PM EST PACE Home Care / [facility] [address] [place] [phone] Melissa Raza 09/26/2025 5:30 PM EST PACE Home Care / PACE Home Visit [facility] [place] [facility] [address] [place] [phone] Daksha Yates 09/27/2025 Clinical Support [facility] [place] [facility] [address] [place] [phone] Federica Quintana LPN 09/27/2025 8:00 AM EST PACE Home Care / PACE Home Visit [facility] [place] [facility] [address] [place] [phone] Tiana Sibley 09/27/2025 12:30 PM EST PACE Home Care / PACE Home Visit [facility] [place] [facility] [address] [place] [phone] Lata Ford 09/27/2025 5:30 PM EST PACE Home Care / PACE Home Visit [facility] [place] [facility] [address] [place] [phone] Daksha Yates 09/28/2025 8:00 AM EST PACE Home Care / PACE Home Visit [facility] [place] [facility] [address] [place] [phone] Melissa Raza 09/28/2025 12:30 PM EST PACE Home Care / PACE Home Visit [facility] [place] [facility] [address] [place] [phone] Melissa Raza 09/28/2025 5:30 PM EST PACE Home Care / PACE Home Visit [facility] Marie [facility] [place] [facility] [address] [place] [phone] Daksha Yates 09/29/2025 8:00 AM EST PACE Home Care / PACE Home Visit [facility] [place] [facility] [address] [place] [phone] Tiana Sibley 09/29/2025 12:30 PM EST PACE Home Care / [facility] [address] [place] [address] Daksha Yates 09/29/2025 5:30 PM EST PACE Home Care / [facility] [address] [place] [address] Daksha Yates 09/30/2025 8:30 AM EST PACE Home Care / [facility] [address] [place] [phone] Tiana Sibley 09/30/2025 12:30 PM EST PACE Home Care / [facility] [place] [facility] [address] [place] [phone] Daksha Yates 09/30/2025 5:30 PM EST PACE Home Care / [facility] [address] [place] [phone] Tiana Sibley 10/01/2025 8:30 AM EST PACE Home Care / [facility] [address] [place] [phone] Tiana Sibley 10/01/2025 12:30 PM EST PACE Home Care / [facility] [place] [facility] [address] [place] [phone] Tiana Sibley 10/01/2025 5:30 PM EST PACE Home Care / [facility] [address] [place] [phone] Tiana Sibley 10/02/2025 8:00 AM EST PACE Home Care / [facility] [address] [place] [phone] Daksha Yates 10/02/2025 12:30 PM EST PACE Home Care / [facility] Visit [facility] [address] [place] [address] Daksha Yates 10/02/2025 5:30 PM EST PACE Home Care / [facility] Visit [facility] [address] [place] [phone] Daksha Yates 10/03/2025 8:00 AM EST PACE Home Care / [facility] [address] [place] [phone] Melissa Raza 10/03/2025 12:30 PM EST PACE Home Care / [facility] [address] [place] [phone] Melissa Raza 10/03/2025 5:30 PM EST PACE Home Care / P[facility] Home Visit [facility] [place] [facility] [address] [place] [phone] [facility]/04/[facility] Clinical Support [facility] [place] [facility] [address] [place] [phone] Federica Quintana LPN 10/04/2025 8:00 AM EST PACE Home Care / [facility] [address] [place] [phone] Tiana Sibley 10/04/2025 12:30 PM EST PACE Home Care / [facility] [address] [place] [phone] Lata Ford 10/04/2025 5:30 PM EST PACE Home Care / [facility] [address] [place] [phone] Daksha Yates 10/05/2025 8:00 AM EST PACE Home Care / [facility] [address] [place] [address] Melissa Raza 10/05/2025 12:30 PM EST PACE Home Care / [facility] [address] [place] [address] Melissa Raza 10/05/2025 5:30 PM EST PACE Home Care / [facility] [place] [facility] [address] [place] [phone] Daksha Yates 10/06/2025 8:00 AM EST PACE Home Care / [facility] [place] [facility] [address] [place] [phone] Tiana Sibley 10/06/2025 12:30 PM EST PACE Home Care / [facility] [address] [place] [phone] [facility]/06/2025 5:30 PM EST PACE Home Care / [facility] [address] [place] [phone] Daksha Yates 10/07/2025 8:30 AM EST PACE Home Care / [facility] [place] [facility] [address] [place] [phone] Tiana Sibley 10/07/2025 12:30 PM EST PACE Home Care / [facility] [place] [facility] [address] [place] [phone] Daksha Yates 10/07/2025 5:30 PM EST PACE Home Care / [facility] [address] [place] [phone] Tiana Sibley 10/08/2025 8:30 AM EST PACE Home Care / [facility] [place] [facility] [address] [place] [phone] Tiana Sibley 10/08/2025 12:30 PM EST PACE Home Care / [facility] [place] [facility] [address] [place] [phone] Tiana Sibley 10/08/2025 5:00 PM EST PACE Home Care / [facility] [address] [place] [phone] Tiana Sibley 10/09/2025 8:30 AM EST PACE Home Care / [facility] [address] [place] [phone] Brigida Hendricks 10/09/2025 12:30 PM EST PACE Home Care / [facility] [address] [place] [phone] Brigida Hendricks 10/09/2025 5:30 PM EST PACE Home Care / [facility] [address] [place] [phone] Brigida Hendricks 10/10/2025 8:00 AM EST PACE Home Care / [facility] [address] [place] [phone] Melissa Raza 10/10/2025 12:30 PM EST PACE Home Care / [facility] [place] [facility] [address] [place] [phone] Melissa Raza 10/10/2025 5:30 PM EST PACE Home Care / [facility] [place] [facility] [address] [place] [phone] Daksha Yates 10/11/2025 8:00 AM EST PACE Home Care / [facility] [address] [place] [address] Tiana Sibley 10/11/2025 12:30 PM EST PACE Home Care / [facility] [address] [place] [address] Lata Ford 10/11/2025 5:30 PM EST PACE Home Care / [facility] [address] [place] [phone] Daksha Yates 10/12/2025 8:00 AM EST PACE Home Care / [facility] [address] [place] [phone] Melissa Raza 10/12/2025 12:30 PM EST PACE Home Care / [facility] [address] [place] [phone] Melissa Raza 10/12/2025 5:30 PM EST PACE Home Care / [facility] [address] [place] [phone] Daksha Yates 10/13/2025 8:00 AM EST PACE Home Care / [facility] [place] [facility] [address] [place] [phone] Tiana Sibley 10/13/2025 12:30 PM EST PACE Home Care / [facility] [address] [place] [phone] Daksha Yates 10/13/2025 5:30 PM EST PACE Home Care / [facility] [address] [place] [address] Daksha Yates 10/14/2025 8:30 AM EST PACE Home Care / [facility] [address] [place] [address] Tiana Sibley 10/14/2025 12:30 PM EST PACE Home Care / [facility] [address] [place] [address] Daksha Yates 10/14/2025 5:30 PM EST PACE Home Care / [facility] [address] [place] [phone] Tiana Sibley 10/15/2025 8:30 AM EST PACE Home Care / [facility] [address] [place] [address] Tiana Sibley 10/15/2025 12:30 PM EST PACE Home Care / [facility] [place] [facility] [address] [place] [phone] Tiana Sibley 10/15/2025 5:30 PM EST PACE Home Care / [facility] [place] [facility] [address] [place] [phone] Tiana Sibley 10/16/2025 8:00 AM EST PACE Home Care / [facility] [address] [place] [phone] Daksha Yates 10/16/2025 12:30 PM EST PACE Home Care / [facility] [address] [place] [phone] Daksha Yates 10/16/2025 5:30 PM EST PACE Home Care / [facility] [address] [place] [address] Daksha Yates 10/17/2025 8:00 AM EST PACE Home Care / [facility] [address] [place] [address] Melissa Raza 10/17/2025 12:30 PM EST PACE Home Care / [facility] [address] [place] [phone] Melissa Raza 10/17/2025 5:30 PM EST PACE Home Care / [facility] [address] [place] [phone] Daksha Yates 10/18/2025 8:00 AM EST PACE Home Care / [facility] [address] [place] [phone] Tinaa Sibley 10/18/2025 12:30 PM EST PACE Home Care / [facility] [address] [place] [phone] Lata Ford 10/18/2025 5:30 PM EST PACE Home Care / [facility] [address] [place] [phone] Daksha Yates 10/19/2025 8:00 AM EST PACE Home Care / [facility] [address] [place] [phone] Melissa Raza 10/19/2025 12:30 PM EST PACE Home Care / [facility] [address] [place] [phone] Melissa Raza 10/19/2025 5:30 PM EST PACE Home Care / [facility] [address] [place] [address] Daksha Yates 10/20/2025 8:00 AM EST PACE Home Care / [facility] [address] [place] [address] Tiana Sibley 10/20/2025 12:30 PM EST PACE Home Care / [facility] [address] [place] [address] Daksha Yates 10/20/2025 5:30 PM EST PACE Home Care / [facility] [address] [place] [phone] Daksha Yates 10/21/2025 8:30 AM EST PACE Home Care / [facility] [address] [place] [phone] Tiana Sibley 10/21/2025 12:30 PM EST PACE Home Care / [facility] [place] [facility] [address] [place] [phone] Daksha Yates 10/21/2025 5:30 PM EST PACE Home Care / [facility] [place] [facility] [address] [place] [phone] Tiana Sibley 10/22/2025 8:30 AM EST PACE Home Care / [facility] [address] [place] [phone] Tiana Sibley 10/22/2025 12:30 PM EST PACE Home [facility] / [facility] [place] [facility] [address] [place] [phone] Tiana Sibley 10/22/2025 5:00 PM EST [facility] [address] [place] [phone] Tiana Sibley 10/23/2025 8:30 AM EST [facility] [place] [facility] [address] [place] [phone] Brigida Hendricks 10/23/2025 12:30 PM EST [facility] [place] [facility] [address] [place] [phone] Brigida Hendricks 10/23/2025 5:30 PM EST [facility] [place] [facility] [address] [place] [phone] Brigida Hendricks 10/24/2025 8:00 AM EST [facility] [place] [facility] [address] [place] [phone] Melissa Raza 10/24/2025 12:30 PM EST [facility] [place] [facility] [address] [place] [phone] Melissa Raza 10/24/2025 5:30 PM EST [facility] [place] [facility] [address] [place] [phone] Daksha Yates 10/25/2025 8:00 AM EST [facility] [place] [facility] [address] [place] [phone] Tiana Sibley 10/25/2025 12:30 PM EST [facility] [place] [facility] [address] [place] [phone] Lata Ford 10/25/2025 5:30 PM EST [facility] [place] [facility] [address] [place] [phone] Daksha Yates 10/26/2025 8:00 AM EST [facility] [place] [facility] [address] [place] [phone] Melissa Raza 10/26/2025 12:30 PM EST [facility] [place] [facility] [address] [place] [phone] Melissa Raza 10/26/2025 5:30 PM EST [facility] [place] [facility] [address] [place] [phone] [facility]/27/2025 8:00 AM EST [facility] [place] [facility] [address] [place] [phone] Tiana Sibley 10/27/2025 12:30 PM EST [facility] [place] [facility] [address] [place] [phone] [facility] 10/27/2025 5:30 PM EST [facility] [place] [facility] [address] [place] [phone] [facility] 10/28/2025 8:30 AM EST [facility] [place] [facility] [address] [place] [phone] Tiana Sibley 10/28/2025 12:30 PM EST [facility] [place] [facility] [address] [place] [phone] Daksha Yates 10/28/2025 5:30 PM EST [facility] [place] [facility] [address] [place] [phone] Tiana Sibley 10/29/2025 8:30 AM EST [facility] [place] [facility] [address] [place] [phone] Tiana Sibley 10/29/2025 12:30 PM EST [facility] [place] [facility] [address] [place] [phone] Tiana Sibley 10/29/2025 5:30 PM EST [facility] [place] [facility] [address] [place] [phone] Tiana Sibley 10/30/2025 8:00 AM EST [facility] [place] [facility] [address] [place] [phone] [facility] 10/30/2025 12:30 PM EST [facility] [place] [facility] [address] [place] [phone] [place], [facility] 10/30/2025 5:30 PM EST [facility] [place] [facility] [address] [place] [phone] [place], [facility] 10/31/2025 8:00 AM EST [facility] [place] [facility] [address] [place] [phone] Melissa Raza 10/31/2025 12:30 PM EST [facility] [place] [facility] [address] [place] [phone] Melissa Raza 10/31/2025 5:30 PM EST [facility] [place] [facility] [address] [place] [phone] Daskha Yates 11/01/2025 8:00 AM EST [facility] [place] [facility] [address] [place] [phone] Tiana Sibley 11/01/2025 12:30 PM EST [facility] [place] [facility] [address] [place] [phone] Lata Ford 11/01/2025 5:30 PM EST [facility] [place] [facility] [address] [place] [phone] Daksha Yates 11/02/2025 8:00 AM EST [facility] [place] [facility] [address] [place] [phone] Melissa Raza 11/02/2025 12:30 PM EST [facility] [place] [facility] [address] [place] [phone] Melissa Raza 11/02/2025 5:30 PM EST [facility] [place] [facility] [address] [place] [phone] Daksha Yates 11/03/2025 8:00 AM EST [facility] [place] [facility] [address] [place] [phone] Tiana Sibley 11/03/2025 12:30 PM EST [facility] [place] [facility] [address] [facility] [place] [phone] Daksha Yates 11/03/2025 5:30 PM EST [facility] [address] [place] [phone] MeliadanielDaksha 11/04/2025 8:30 AM EST [facility] [address] [place] [phone] Tiana Sibley 11/04/2025 12:30 PM EST [facility] [address] [place] [phone] Daksha Yates 11/04/2025 5:30 PM EST [facility] [address] [place] [phone] Tiana Sibley documented as of this encounter Visit Diagnoses Not on filedocumented in this encounter Additional Health Concerns Assessment Noted Time PHQ-9 Depression Total Score: 3 03/25/20 11:12 AM EDT documented as of this encounter Care Teams Plumbing Engineer Relationship Specialty Start Date End Date Reyna Zuniga NP [address] [place] [id number] PCP - General Family Medicine 11/06/24 documented as of this encounter
--- OUTSIDE RECORDS SUMMARY | 2025-09-04 12:30 | XMS_ITS | Encounter Summary ---
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 Name Role Phone Reyna Zuniga NP Primary Care Provider [phone] Encounter Details Date Type Department Care Team (Late st Contact Info) Description 09/04/2025 12:30 PM EST PACE Home Care / PACE Home Visit [facility] [place] [facility] [address] [place] [phone] Lata Ford Social History Tobacco Use Types [...] Support [facility] [address] [place] [phone] Federica Quintana LPN 09/06/2025 8:00 AM EST PACE Home Care / PACE Home Visit [facility] Marie [facility] [address] [place] [phone] Tiana Sibley 09/06/2025 12:15 PM EST Treatment Anne Marie [facility] [place] Occupational Therapy [address] [place] [address] Antonio Andrade OT 09/06/2025 5:30 PM EST PACE Home Care / PACE Home Visit [facility] [place] [facility] [address] [place] [address] Daksha Yates 09/07/2025 8:30 AM EST PACE Home Care / PACE Home Visit [facility] [place] [facility] [address] [place] [address] Melissa Raza 09/07/2025 12:30 PM EST PACE Home Care / PACE Home Visit [facility] [place] [facility] [address] [place] [address] Melissa Raza 09/07/2025 5:30 PM EST PACE Home Care / PACE Home Visit [facility] [place] [facility] [address] [place] [phone] [facility] 09/08/2025 8:30 AM EST PACE Home Care / PACE Home Visit [facility] [place] [facility] [address] [place] [phone] Tiana Sibley 09/08/2025 12:30 PM EST PACE Home Care / PACE Home Visit [facility] [place] [facility] [address] [place] [phone] [facility] 09/08/2025 5:30 PM EST PACE Home Care / [facility] [address] [place] [phone] [facility] 09/09/2025 8:30 AM EST PACE Home Care / [facility] [address] [place] [phone] Tiana Sibley 09/09/2025 12:30 PM EST PACE Home Care / [facility] [address] [place] [address] Daksha Yates 09/09/2025 5:30 PM EST PACE Home Care / [facility] [place] [facility] [address] [place] [address] Tiana Sibley 09/10/2025 9:00 AM EST PACE Home Care / [facility] [place] [facility] [address] [place] [address] Tiana Sibley 09/10/2025 12:00 PM EST PACE Home Care / [facility] [place] [facility] [address] [place] [phone] Brigida Hendricks 09/10/2025 5:00 PM EST PACE Home Care / [facility] [place] [facility] [address] [place] [phone] Tiana Sibley 09/11/2025 7:30 AM EST PACE Home Care / [facility] [place] [facility] [address] [place] [phone] Brigida Hendricks 09/11/2025 12:30 PM EST PACE Home Care / [facility] [place] [facility] [address] [place] [phone] Brigida Hendricks 09/11/2025 5:30 PM EST PACE Home Care / [facility] [place] [facility] [address] [place] [phone] Brigida Hendricks 09/12/2025 8:00 AM EST PACE Home Care / [facility] [place] [facility] [address] [place] [phone] Melissa Raza 09/12/2025 12:30 PM EST PACE Home Care / PACE Home Visit [facility] Marie [facility] [place] [facility] [address] [place] [address] Melissa Raza 09/12/2025 5:30 PM EST PACE Home Care / PACE Home Visit [facility] [place] [facility] [address] [place] [address] Daksha Yates 09/13/2025 Clinical Support [facility] [place] [facility] [address] [place] [address] Federica Quintana LPN 09/13/2025 8:00 AM EST PACE Home Care / PACE Home Visit [facility] [place] [facility] [address] [place] [phone] Tiana Sibley 09/13/2025 12:30 PM EST PACE Home Care / PACE Home Visit [facility] Marie [facility] [place] [facility] [address] [place] [phone] Lata Ford 09/13/2025 5:30 PM EST PACE Home Care / PACE Home Visit [facility] [place] [facility] [address] [place] [phone] Daksha Yates 09/14/2025 8:00 AM EST PACE Home Care / PACE Home Visit [facility] [place] [facility] [address] [place] [phone] Melissa Raza 09/14/2025 12:30 PM EST PACE Home Care / [facility] [address] [place] [phone] Melissa Raza 09/14/2025 5:30 PM EST PACE Home Care / [facility] [address] [place] [phone] Daksha Yates 09/15/2025 8:00 AM EST PACE Home Care / [facility] [address] [place] [address] Tiana Sibley 09/15/2025 12:30 PM EST PACE Home Care / [facility] [place] [facility] [address] [place] [address] Daksha Yates 09/15/2025 5:30 PM EST PACE Home Care / [facility] [place] [facility] [address] [place] [address] Daksha Yates 09/16/2025 8:30 AM EST PACE Home Care / [facility] [place] [facility] [address] [place] [address] Taina Sibley 09/16/2025 12:30 PM EST PACE Home Care / [facility] [address] [place] [address] Daksha Yates 09/16/2025 5:30 PM EST PACE Home Care / [facility] [place] [facility] [address] [place] [address] Tiana Sibley 09/17/2025 8:30 AM EST PACE Home Care / [facility] [place] [facility] [address] [place] [address] iTana Sibley 09/17/2025 12:30 PM EST PACE Home Care / [facility] [place] [facility] [address] [place] [phone] Tiana Sibley 09/17/2025 5:30 PM EST PACE Home Care / [facility] [address] [place] [address] Tiana Sibley 09/18/2025 8:00 AM EST PACE Home Care / [facility] [address] [place] [address] Daksha Yates 09/18/2025 12:30 PM EST PACE Home Care / [facility] Visit [facility] [address] [place] [address] Daksha Yates 09/18/2025 5:30 PM EST PACE Home Care / [facility] Visit [facility] [address] [place] [address] Daksha Yates 09/19/2025 8:00 AM EST PACE Home Care / [facility] [address] [place] [address] Melissa Raza 09/19/2025 12:30 PM EST PACE Home Care / [facility] [address] [place] [address] Melissa Raza 09/19/2025 5:30 PM EST PACE Home Care / [facility] [address] [place] [address] Daksha Yates 09/20/2025 Clinical Support [facility] [place] [facility] [address] [place] [address] Federica Quintana LPN 09/20/2025 8:00 AM EST PACE Home Care / [facility] [place] [facility] [address] [place] [address] Tiana Sibley 09/20/2025 12:30 PM EST PACE Home Care / [facility] [place] [facility] [address] [place] [address] Lata Ford 09/20/2025 5:30 PM EST PACE Home Care / [facility] [place] [facility] [address] [place] [address] Daksha Yates 09/21/2025 8:00 AM EST PACE Home Care / [facility] [place] [facility] [address] [place] [address] Melissa Raza 09/21/2025 12:30 PM EST PACE Home Care / [facility] [place] [facility] [address] [place] [address] Melissa Raza 09/21/2025 5:30 PM EST PACE Home Care / [facility] [place] [facility] [address] [place] [phone] Daksha Yates 09/22/2025 8:00 AM EST PACE Home Care / [facility] [place] [facility] [address] [place] [phone] Tiana Sibley 09/22/2025 12:30 PM EST PACE Home Care / [facility] [place] [facility] [address] [place] [phone] [facility] 09/22/2025 5:30 PM EST PACE Home Care / [facility] [place] [facility] [address] [place] [phone] [facility] 09/23/2025 8:30 AM EST PACE Home Care / [facility] [place] [facility] [address] [place] [phone] Tiana Sibley 09/23/2025 12:30 PM EST PACE Home Care / [facility] [place] [facility] [address] [place] [phone] Daksha Yates 09/23/2025 5:30 PM EST PACE Home Care / [facility] [place] [facility] [address] [place] [address] Tiana Sibley 09/24/2025 8:30 AM EST PACE Home Care / [facility] [place] [facility] [address] [place] [phone] Tiana Sibley 09/24/2025 12:30 PM EST PACE Home Care / [facility] [place] [facility] [address] [place] [phone] Tiana Sibley 09/24/2025 5:00 PM EST PACE Home Care / [facility] [place] [facility] [address] [place] [phone] Tiana Sibley 09/25/2025 8:30 AM EST PACE Home Care / [facility] [place] [facility] [address] [place] [phone] Brigida Hendricks 09/25/2025 12:30 PM EST P[facility] Home Care / [facility] [address] [place] [phone] Brigida Hendricks 09/25/2025 5:30 PM EST PACE Home Care / [facility] [address] [place] [phone] Brigida Hendricks 09/26/2025 8:00 AM EST PACE Home Care / [facility] [address] [place] [phone] Melissa Raza 09/26/2025 12:30 PM EST PACE Home Care / [facility] [place] [facility] [address] [place] [phone] Melissa Raza 09/26/2025 5:30 PM EST PACE Home Care / PACE Home Visit [facility] [place] [facility] [address] [place] [phone] Daksha Yates 09/27/2025 Clinical Support [facility] [place] [facility] [address] [place] [phone] Federica Quintana LPN 09/27/2025 8:00 AM EST PACE Home Care / PACE Home Visit [facility] [place] [facility] [address] [place] [phone] Tiana Sibley 09/27/2025 12:30 PM EST PACE Home Care / PACE Home Visit [facility] [place] [facility] [address] [place] [phone] Lata Ford 09/27/2025 5:30 PM EST PACE Home Care / PACE Home Visit [facility] [address] [place] [phone] Daksha Yates 09/28/2025 8:00 AM EST PACE Home Care / PACE Home Visit [facility] [address] [place] [phone] Melissa Raza 09/28/2025 12:30 PM EST PACE Home Care / PACE Home Visit [facility] [address] [place] [phone] Melissa Raza 09/28/2025 5:30 PM EST PACE Home Care / PACE Home Visit [facility] [place] [facility] [address] [place] [phone] Daksha Yates 09/29/2025 8:00 AM EST PACE Home Care / PACE Home Visit [facility] [address] [place] [phone] Tiana Sibley 09/29/2025 12:30 PM EST PACE Home Care / [facility] [address] [place] [address] Daksha Yates 09/29/2025 5:30 PM EST PACE Home Care / [facility] [place] [facility] [address] [place] [address] Daksha Yates 09/30/2025 8:30 AM EST P[facility] Home Care / [facility] [place] [facility] [address] [place] [phone] Tiana Sibley 09/30/2025 12:30 PM EST PACE Home Care / [facility] [place] [facility] [address] [place] [phone] Daksha Yates 09/30/2025 5:30 PM EST PACE Home [facility] / [facility] [place] [facility] [address] [place] [phone] Tiana Sibley 10/01/2025 8:30 AM EST PACE Home Care / [facility] [place] [facility] [address] [place] [phone] Tiana Sibley 10/01/2025 12:30 PM EST PACE Home Care / [facility] [place] [facility] [address] [place] [phone] Tiana Sibley 10/01/2025 5:30 PM EST PACE Home [facility] / [facility] [place] [facility] [address] [place] [phone] Tiana Sibley 10/02/2025 8:00 AM EST PACE Home Care / [facility] [address] [place] [phone] Daksha Yates 10/02/2025 12:30 PM EST PACE Home Care / [facility] [address] [place] [address] Daksha Yates 10/02/2025 5:30 PM EST PACE Home Care / [facility] Visit [facility] [address] [place] [phone] Daksha Yates 10/03/2025 8:00 AM EST PACE Home Care / [facility] [address] [place] [phone] Melissa Raza 10/03/2025 12:30 PM EST PACE Home Care / [facility] [address] [place] [phone] Melissa Raza 10/03/2025 5:30 PM EST PACE Home Care / PACE Home Visit [facility] [place] [facility] [address] [place] [phone] [facility] Clinical Support [facility] [place] [facility] [address] [place] [phone] Federica Quintana LPN 10/04/2025 8:00 AM EST PACE Home Care / [facility] [address] [place] [phone] Tiana Sibley 10/04/2025 12:30 PM EST P[facility] Home [facility] / [facility] [place] [facility] [address] [place] [phone] Lata Ford 10/04/2025 5:30 PM EST PACE Home Care / [facility] [place] [facility] [address] [place] [phone] Daksha Yates 10/05/2025 8:00 AM EST P[facility] Home [facility] / [facility] [address] [place] [address] Melissa Raza 10/05/2025 12:30 PM EST PACE Home Care / [facility] [address] [place] [address] Melissa Raza 10/05/2025 5:30 PM EST P[facility] Home [facility] / [facility] [address] [place] [phone] Daksha Yates 10/06/2025 8:00 AM EST PACE Home Care / [facility] [place] [facility] [address] [place] [phone] Tiana Sibley 10/06/2025 12:30 PM EST PACE Home [facility] / [facility] [place] [facility] [address] [place] [phone] [facility] 10/06/2025 5:30 PM EST P[facility] Home [facility] / [facility] [place] [facility] [address] [place] [phone] Daksha Yates 10/07/2025 8:30 AM EST PACE Home Care / [facility] [place] [facility] [address] [place] [phone] Tiana Sibley 10/07/2025 12:30 PM EST PACE Home [facility] / [facility] [place] [facility] [address] [place] [phone] Daksha Yates 10/07/2025 5:30 PM EST PACE Home [facility] / [facility] [place] [facility] [address] [place] [phone] Tiana Sibley 10/08/2025 8:30 AM EST PACE Home [facility] / [facility] [place] [facility] [address] [place] [phone] Tiana Sibley 10/08/2025 12:30 PM EST PACE Home Care / [facility] [address] [place] [phone] Tiana Sibley 10/08/2025 5:00 PM EST PACE Home Care / [facility] [place] [facility] [address] [place] [phone] Tiana Sibley 10/09/2025 8:30 AM EST P[facility] Home Care / [facility] [place] [facility] [address] [place] [phone] Brigida Hendricks 10/09/2025 12:30 PM EST PACE Home [facility] / [facility] [place] [facility] [address] [place] [phone] Brigida Hendricks 10/09/2025 5:30 PM EST P[facility] Home [facility] / [facility] [place] [facility] [address] [place] [phone] Brigida Hendricks 10/10/2025 8:00 AM EST P[facility] Home [facility] / [facility] [place] [facility] [address] [place] [phone] Melissa Raza 10/10/2025 12:30 PM EST PACE Home Care / [facility] [address] [place] [phone] Melissa Raza 10/10/2025 5:30 PM EST P[facility] Home [facility] / [facility] [address] [place] [phone] Daksha Yates 10/11/2025 8:00 AM EST P[facility] Home [facility] / [facility] [place] [facility] [address] [place] [address] Tiana Sibley 10/11/2025 12:30 PM EST P[facility] Home Care / [facility] [place] [facility] [address] [place] [address] Lata Ford 10/11/2025 5:30 PM EST P[facility] Home Care / [facility] [place] [facility] [address] [place] [phone] Daksha Yates 10/12/2025 8:00 AM EST P[facility] Home [facility] / [facility] [place] [facility] [address] [place] [phone] Melissa Raza 10/12/2025 12:30 PM EST PACE Home Care / [facility] [address] [place] [phone] Melissa Raza 10/12/2025 5:30 PM EST PACE Home Care / [facility] [address] [place] [phone] Daksha Yates 10/13/2025 8:00 AM EST P[facility] Home Care / [facility] [place] [facility] [address] [place] [phone] Tiana Sibley 10/13/2025 12:30 PM EST PACE Home Care / [facility] [place] [facility] [address] [place] [phone] Daksha Yates 10/13/2025 5:30 PM EST PACE Home Care / [facility] [address] [place] [address] Daksha Yates 10/14/2025 8:30 AM EST PACE Home Care / [facility] [address] [place] [address] Tiana Sibley 10/14/2025 12:30 PM EST PACE Home Care / [facility] [address] [place] [address] Daksha Yates 10/14/2025 5:30 PM EST PACE Home Care / [facility] [address] [place] [phone] Tiana Sibley 10/15/2025 8:30 AM EST P[facility] Home [facility] / [facility] [place] [facility] [address] [place] [address] Tiana Sibley 10/15/2025 12:30 PM EST PACE Home [facility] / [facility] [place] [facility] [address] [place] [phone] Tiana Sibley 10/15/2025 5:30 PM EST PACE Home [facility] / [facility] [address] [place] [phone] Tiana Sibley 10/16/2025 8:00 AM EST PACE Home [facility] / [facility] [address] [place] [phone] Daksha Yates 10/16/2025 12:30 PM EST PACE Home [facility] / [facility] [address] [place] [phone] Daksha Yates 10/16/2025 5:30 PM EST P[facility] Home [facility] / [facility] [place] [facility] [address] [place] [address] Daksha Yates 10/17/2025 8:00 AM EST PACE Home Care / [facility] [address] [place] [address] Melissa Raza 10/17/2025 12:30 PM EST PACE Home [facility] / [facility] [address] [place] [phone] Melissa Raza 10/17/2025 5:30 PM EST PACE Home [facility] / [facility] [address] [place] [phone] Daksha Yates 10/18/2025 8:00 AM EST P[facility] Home [facility] / [facility] [place] [facility] [address] [place] [phone] Tiana Sibley 10/18/2025 12:30 PM EST PACE Home [facility] / [facility] [address] [place] [phone] Lata Ford 10/18/2025 5:30 PM EST PACE Home Care / [facility] [address] [place] [phone] Daksha Yates 10/19/2025 8:00 AM EST PACE Home [facility] / [facility] [address] [place] [phone] Melissa Raza 10/19/2025 12:30 PM EST PACE Home Care / [facility] [address] [place] [phone] Melissa Raza 10/19/2025 5:30 PM EST PACE Home [facility] / [facility] [address] [place] [address] Daksha Yates 10/20/2025 8:00 AM EST PACE Home [facility] / [facility] [address] [place] [address] Tiana Sibley 10/20/2025 12:30 PM EST PACE Home [facility] / [facility] [place] [facility] [address] [place] [address] Daksha Yates 10/20/2025 5:30 PM EST PACE Home [facility] / [facility] [place] [facility] [address] [place] [phone] Daksha Yates 10/21/2025 8:30 AM EST PACE Home Care / [facility] [address] [place] [phone] Tiana Sibley 10/21/2025 12:30 PM EST PACE Home [facility] / [facility] [address] [place] [phone] Daksha Yates 10/21/2025 5:30 PM EST PACE Home [facility] / [facility] [address] [place] [phone] Tiana Sibley 10/22/2025 8:30 AM EST PACE Home [facility] / [facility] [place] [facility] [address] [place] [phone] Tiana Sibley 10/22/2025 12:30 PM EST PACE Home Care / [facility] [place] [facility] [address] [place] [phone] Tiana Sibley 10/22/2025 5:00 PM EST P[facility] Home [facility] / [facility] [place] [facility] [address] [place] [address] Tiana Sibley 10/23/2025 8:30 AM EST P[facility] [place] [facility] [address] [place] [phone] Brigida Hendricks 10/23/2025 12:30 PM EST [facility] [address] [place] [phone] Brigida Hendricks 10/23/2025 5:30 PM EST [facility] / [facility] [address] [place] [phone] Brigida Hendricks 10/24/2025 8:00 AM EST [facility] / [facility] [place] [facility] [address] [place] [phone] Melissa Raza 10/24/2025 12:30 PM EST [facility] / [facility] [place] [facility] [address] [place] [phone] Melissa Raza 10/24/2025 5:30 PM EST [facility] / [facility] [place] [facility] [address] [place] [phone] Daksha Yates 10/25/2025 8:00 AM EST [facility] / [facility] [place] [facility] [address] [place] [phone] Tiana Sibley 10/25/2025 12:30 PM EST [facility] / [facility] [place] [facility] [address] [place] [phone] Lata Ford 10/25/2025 5:30 PM EST [facility] / [facility] [place] [facility] [address] [place] [phone] Daksha Yates 10/26/2025 8:00 AM EST [facility] / [facility] [place] [facility] [address] [place] [phone] Melissa Raza 10/26/2025 12:30 PM EST [facility] / [facility] [place] [facility] [address] [place] [phone] Melissa Raza 10/26/2025 5:30 PM EST [facility] / [facility] [place] [facility] [address] [place] [phone] [facility] 10/27/2025 8:00 AM EST [facility] / [facility] [place] [facility] [address] [place] [phone] Tiana Sibley 10/27/2025 12:30 PM EST [facility] / [facility] [place] [facility] [address] [place] [phone] [facility] 10/27/2025 5:30 PM EST [facility] / [facility] [place] [facility] [address] [place] [phone] [facility] 10/28/2025 8:30 AM EST [facility] / [facility] [place] [facility] [place] [facility] [address] [place] [phone] Tiana Sibley 10/28/2025 12:30 PM EST [facility] / [facility] [place] [facility] [address] [place] [phone] Daksha Yates 10/28/2025 5:30 PM EST [facility] / [facility] [place] [facility] [address] [place] [phone] Tiana Sibley 10/29/2025 8:30 AM EST [facility] / [facility] [place] [facility] [address] [place] [phone] Tiana Sibley 10/29/2025 12:30 PM EST [facility] / [facility] [place] [facility] [address] [place] [phone] Tiana Sibley 10/29/2025 5:30 PM EST [facility] / [facility] [place] [facility] [address] [place] [phone] Tiana Sibley 10/30/2025 8:00 AM EST [facility] / [facility] [place] [facility] [address] [place] [phone] [facility] 10/30/2025 12:30 PM EST [facility] / [facility] [place] [facility] [place] [facility] [address] [place] [phone] [place], [facility] 10/30/2025 5:30 PM EST [facility] / [facility] [place] [facility] [place] [facility] [address] [place] [phone] [place], [facility] 10/31/2025 8:00 AM EST [facility] / [facility] [place] [facility] [address] [place] [phone] Melissa Raza 10/31/2025 12:30 PM EST [facility] / [facility] [place] [facility] [address] [place] [phone] Melissa Raza 10/31/2025 5:30 PM EST [facility] / [facility] [place] [facility] [address] [place] [phone] Daksha Yates 11/01/2025 8:00 AM EST [facility] / [facility] [place] [facility] [address] [place] [phone] Tiana Sibley 11/01/2025 12:30 PM EST [facility] / [facility] [place] [facility] [address] [place] [phone] Lata Ford 11/01/2025 5:30 PM EST [facility] / [facility] [place] [facility] [address] [place] [phone] Daksha Yates 11/02/2025 8:00 AM EST [facility] / [facility] [place] [facility] [address] [place] [phone] Melissa Raza 11/02/2025 12:30 PM EST [facility] / [facility] [place] [facility] [address] [place] [phone] Melissa Raza 11/02/2025 5:30 PM EST [facility] / [facility] [place] [facility] [address] [place] [phone] Daksha Yates 11/03/2025 8:00 AM EST [facility] / [facility] [place] [facility] [address] [place] [phone] Tiana Sibley 11/03/2025 12:30 PM EST [facility] / [facility] [place] [facility] [address] [place] [phone] Daksha Yates 11/03/2025 5:30 PM EST [facility] / [facility] [address] [place] [phone] MeliadanielDaksha 11/04/2025 8:30 AM EST [facility] Home [facility] / [facility] [address] [place] [phone] Tiana Sibley 11/04/2025 12:30 PM EST [facility] / [facility] Visit [facility] [address] [place] [phone] Daksha Yates 11/04/2025 5:30 PM EST [facility] / [facility] [address] [place] [phone] Tiana Sibley documented as of this encounter Visit Diagnoses Not on filedocumented in this encounter Additional Health Concerns Assessment Noted Time PHQ-9 Depression Total Score: 3 03/25/20 11:12 AM EDT documented as of this encounter 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
--- OUTSIDE RECORDS SUMMARY | 2025-09-05 08:00 | XMS_ITS | Encounter Summary ---
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 Name Role Phone Reyna Zuniga NP Primary Care Provider [phone] Encounter Details Date Type Department Care Team (Late st Contact Info) Description 09/05/2025 8:00 AM EST [facility] Home [facility] / [facility] [address] [place] [phone] Melissa Raza Social History Tobacco Use Types [...] st Contact Info) Description 09/06/2025 Clinical Support [facility] [address] [place] [phone] Federica Quintana LPN 09/06/2025 8:00 AM EST PACE Home Care / [facility] Home Visit [facility] [address] [place] [phone] Tiana Sibley 09/06/2025 12:15 PM EST Treatment [facility] [address] [place] [address] Antonio Andrade OT 09/06/2025 5:30 PM EST PACE Home Care / P[facility] Home Visit [facility] [address] [place] [address] Daksha Yates 09/07/2025 8:30 AM EST PACE Home Care / P[facility] Home Visit [facility] [address] [place] [phone] Melissa Raza 09/07/2025 12:30 PM EST P[facility] Home Care / [facility] Home Visit [facility] [address] [place] [address] Mleissa Raza 09/07/2025 5:30 PM EST PACE Home Care / [facility] Home Visit [facility] [address] [place] [phone] Trudy Shechristian 09/08/2025 8:30 AM EST PACE Home Care / [facility] Home Visit [facility] [address] [place] [phone] Tiana Sibley 09/08/2025 12:30 PM EST PACE Home Care / [facility] Home Visit [facility] [address] [place] [phone] Trudy Shechristian 09/08/2025 5:30 PM EST PACE Home Care / [facility] [place] [facility] [address] [place] [phone] Trudy, Shechristian 09/09/2025 8:30 AM EST P[facility] Home Care / [facility] [address] [place] [phone] Tiana Sibley 09/09/2025 12:30 PM EST PACE Home Care / [facility] [address] [place] [address] Daksha Yates 09/09/2025 5:30 PM EST P[facility] Home Care / [facility] [address] [place] [address] Tiana Sibley 09/10/2025 9:00 AM EST P[facility] Home Care / [facility] [address] [place] [address] Tiana Sibley 09/10/2025 12:00 PM EST P[facility] Home Care / [facility] [address] [place] [phone] Brigida Hendricks 09/10/2025 5:00 PM EST P[facility] Home Care / [facility] [address] [place] [phone] Tiana Sibley 09/11/2025 7:30 AM EST PACE Home Care / [facility] [address] [place] [phone] Brigida Hendricks 09/11/2025 12:30 PM EST P[facility] Home Care / [facility] [address] [place] [phone] Brigida Hendricks 09/11/2025 5:30 PM EST PACE Home Care / [facility] [address] [place] [phone] Brigida Hendricks 09/12/2025 8:00 AM EST P[facility] Home Care / [facility] [address] [place] [phone] Melissa Raza 09/12/2025 12:30 PM EST PACE Home Care / [facility] [address] [place] [address] Melissa Raza 09/12/2025 5:30 PM EST PACE Home Care / [facility] Home Visit [facility] [address] [place] [address] Daksha Yates 09/13/2025 Clinical Support [facility] [address] [place] [phone] Federica Quintana LPN 09/13/2025 8:00 AM EST PACE Home Care / [facility] Home Visit [facility] [address] [place] [phone] Tiana Sibley 09/13/2025 12:30 PM EST P[facility] Home Care / [facility] [address] [place] [phone] Lata Ford 09/13/2025 5:30 PM EST PACE Home Care / [facility] [address] [place] [phone] Daksha Yates 09/14/2025 8:00 AM EST PACE Home Care / [facility] Home Visit [facility] [address] [place] [phone] Melissa Raza 09/14/2025 12:30 PM EST PACE Home Care / [facility] [address] [place] [phone] Melissa Raza 09/14/2025 5:30 PM EST PACE Home Care / [facility] [place] [facility] [address] [place] [phone] Daksha Yates 09/15/2025 8:00 AM EST PACE Home Care / [facility] [address] [place] [address] Tiana Sibley 09/15/2025 12:30 PM EST P[facility] Home Care / [facility] [address] [place] [address] Daksha Yates 09/15/2025 5:30 PM EST PACE Home Care / [facility] [address] [place] [address] Daskha Yates 09/16/2025 8:30 AM EST PACE Home Care / [facility] [address] [place] [address] Tiana Sibley 09/16/2025 12:30 PM EST [facility] Home Care / [facility] [address] [place] [address] Daksha Yates 09/16/2025 5:30 PM EST PACE Home Care / [facility] [address] [place] [phone] Tiana Sibley 09/17/2025 8:30 AM EST PACE Home Care / [facility] [address] [place] [address] Tiana Sibley 09/17/2025 12:30 PM EST PACE Home Care / [facility] [address] [place] [phone] Tiana Sibley 09/17/2025 5:30 PM EST PACE Home Care / [facility] [address] [place] [address] Tiana Sibley 09/18/2025 8:00 AM EST P[facility] Home Care / [facility] [address] [place] [address] Daksha Yates 09/18/2025 12:30 PM EST PACE Home Care / [facility] [address] [place] [address] Daksha Yates 09/18/2025 5:30 PM EST PACE Home Care / [facility] [address] [place] [address] Daksha Yates 09/19/2025 8:00 AM EST PACE Home Care / [facility] [address] [place] [address] Melissa Raza 09/19/2025 12:30 PM EST P[facility] Home Care / [facility] [address] [place] [phone] Melissa Raza 09/19/2025 5:30 PM EST PACE Home Care / P[facility] Home Visit [facility] [address] [place] [address] Daksha Yates 09/20/2025 Clinical Support [facility] [address] [place] [address] Federica Quintana LPN 09/20/2025 8:00 AM EST P[facility] Home Care / [facility] [address] [place] [address] Tiana Sibley 09/20/2025 12:30 PM EST P[facility] Home Care / [facility] [address] [place] [address] Lata Ford 09/20/2025 5:30 PM EST P[facility] Home Care / [facility] [address] [place] [address] Daksha Yates 09/21/2025 8:00 AM EST P[facility] Home [facility] / [facility] [address] [place] [address] Melissa Raza 09/21/2025 12:30 PM EST P[facility] Home [facility] / [facility] [address] [place] [address] Melissa Raza 09/21/2025 5:30 PM EST P[facility] Home Care / [facility] [address] [place] [address] Daksha Yates 09/22/2025 8:00 AM EST PACE Home Care / [facility] [address] [place] [address] Tiana Sibley 09/22/2025 12:30 PM EST PACE Home Care / [facility] [address] [place] [phone] Daksha Yates 09/22/2025 5:30 PM EST P[facility] Home Care / [facility] [address] [place] [phone] Daksha Yates 09/23/2025 8:30 AM EST P[facility] Home Care / [facility] [address] [place] [phone] Tiana Sibley 09/23/2025 12:30 PM EST PACE Home Care / [facility] [address] [place] [phone] Daksha Yates 09/23/2025 5:30 PM EST PACE Home Care / [facility] [address] [place] [address] Tiana Sibley 09/24/2025 8:30 AM EST P[facility] Home Care / [facility] [address] [place] [address] Tiana Sibley 09/24/2025 12:30 PM EST PACE Home Care / [facility] [address] [place] [phone] Tiana Sibley 09/24/2025 5:00 PM EST PACE Home Care / [facility] [address] [place] [phone] Tiana Sibley 09/25/2025 8:30 AM EST P[facility] Home Care / [facility] [address] [place] [phone] Brigida Hendricks 09/25/2025 12:30 PM EST PACE Home Care / [facility] [address] [place] [phone] Brigida Hendricks 09/25/2025 5:30 PM EST PACE Home Care / [facility] [address] [place] [phone] Brigida Hendricks 09/26/2025 8:00 AM EST PACE Home Care / [facility] [address] [place] [phone] Melissa Raza 09/26/2025 12:30 PM EST PACE Home Care / [facility] [address] [place] [phone] Melissa Raza 09/26/2025 5:30 PM EST PACE Home Care / [facility] [address] [place] [phone] Daksha Yates 09/27/2025 Clinical Support [facility] [address] [place] [phone] Federica Quintana LPN 09/27/2025 8:00 AM EST PACE Home Care / [facility] Home Visit [facility] [address] [place] [phone] Tiana Sibley 09/27/2025 12:30 PM EST PACE Home Care / PACE Home Visit [facility] [address] [place] [phone] Lata Ford 09/27/2025 5:30 PM EST PACE Home Care / PACE Home Visit [facility] [address] [place] [phone] Daksha Yates 09/28/2025 8:00 AM EST PACE Home Care / P[facility] Home Visit [facility] [address] [place] [phone] Melissa Raza 09/28/2025 12:30 PM EST PACE Home Care / PACE Home Visit [facility] [address] [place] [phone] Melissa Raza 09/28/2025 5:30 PM EST PACE Home Care / PACE Home Visit [facility] [address] [place] [phone] Daksha Yates 09/29/2025 8:00 AM EST PACE Home Care / PACE Home Visit [facility] [address] [place] [phone] Tiana Sibley 09/29/2025 12:30 PM EST PACE Home Care / [facility] [address] [place] [address] Daksha Yates 09/29/2025 5:30 PM EST PACE Home Care / [facility] [address] [place] [address] Daksha Yates 09/30/2025 8:30 AM EST PACE Home Care / [facility] Visit [facility] [address] [place] [address] Tiana Sibley 09/30/2025 12:30 PM EST PACE Home Care / [facility] [address] [place] [phone] Daksha Yates 09/30/2025 5:30 PM EST PACE Home Care / [facility] [address] [place] [phone] Tiana Sibley 10/01/2025 8:30 AM EST PACE Home Care / [facility] [address] [place] [phone] Tiana Sibley 10/01/2025 12:30 PM EST PACE Home Care / [facility] [address] [place] [phone] Tiana Sibley 10/01/2025 5:30 PM EST PACE Home Care / [facility] [address] [place] [phone] Tiana Sibley 10/02/2025 8:00 AM EST PACE Home Care / [facility] [address] [place] [phone] [facility] 10/02/2025 12:30 PM EST PACE Home Care / [facility] [address] [place] [phone] [facility] 10/02/2025 5:30 PM EST PACE Home Care / [facility] [address] [place] [phone] [facility] 10/03/2025 8:00 AM EST PACE Home Care / [facility] [address] [place] [phone] Melissa Raza 10/03/2025 12:30 PM EST PACE Home Care / [facility] [address] [place] [phone] Melissa Raza 10/03/2025 5:30 PM EST PACE Home Care / [facility] [address] [place] [phone] Tr[facility] 10/04/2025 Clinical Support [facility] [place] [facility] [address] [place] [phone] Federica Quintana LPN 10/04/2025 8:00 AM EST PACE Home Care / [facility] [address] [place] [phone] Tiana Sibley 10/04/2025 12:30 PM EST PACE Home Care / [facility] Visit [facility] [place] [facility] [address] [place] [phone] Lata Ford 10/04/2025 5:30 PM EST PACE Home Care / [facility] [address] [place] [phone] Daksha Yates 10/05/2025 8:00 AM EST P[facility] Home Care / [facility] [address] [place] [address] Melissa Raza 10/05/2025 12:30 PM EST PACE Home Care / [facility] Visit [facility] [address] [place] [address] Melissa Raza 10/05/2025 5:30 PM EST PACE Home Care / [facility] [place] [facility] [address] [place] [phone] [facility] 10/06/2025 8:00 AM EST PACE Home Care / [facility] [place] [facility] [address] [place] [phone] Tiana Sibley 10/06/2025 12:30 PM EST PACE Home Care / [facility] [place] [facility] [address] [place] [phone] [facility] 10/06/2025 5:30 PM EST PACE Home Care / [facility] [place] [facility] [address] [place] [phone] Tr[facility] 10/07/2025 8:30 AM EST PACE Home Care / [facility] [place] [facility] [address] [place] [phone] Tiana Sibley 10/07/2025 12:30 PM EST PACE Home Care / [facility] [address] [place] [phone] [facility] 10/07/2025 5:30 PM EST PACE Home Care / [facility] [address] [place] [phone] Tiana Sibley 10/08/2025 8:30 AM EST PACE Home Care / [facility] [address] [place] [address] Tiana Sibley 10/08/2025 12:30 PM EST P[facility] Home Care / [facility] [address] [place] [address] Tiana Sibley 10/08/2025 5:00 PM EST PACE Home Care / [facility] [address] [place] [phone] Tiana Sibley 10/09/2025 8:30 AM EST PACE Home Care / [facility] [address] [place] [phone] Brigida Hendricks 10/09/2025 12:30 PM EST P[facility] Home Care / [facility] [address] [place] [phone] Brigida Hendricks 10/09/2025 5:30 PM EST P[facility] Home Care / [facility] [address] [place] [phone] Brigida Hendricks 10/10/2025 8:00 AM EST P[facility] Home Care / [facility] [address] [place] [phone] Melissa Raza 10/10/2025 12:30 PM EST PACE Home Care / [facility] [address] [place] [phone] Melissa Raza 10/10/2025 5:30 PM EST P[facility] Home Care / [facility] [address] [place] [address] Daksha Yates 10/11/2025 8:00 AM EST PACE Home Care / [facility] [address] [place] [address] Tiana Sibley 10/11/2025 12:30 PM EST PACE Home Care / [facility] [address] [place] [address] Lata Ford 10/11/2025 5:30 PM EST PACE Home Care / [facility] [address] [place] [phone] Daksha Yates 10/12/2025 8:00 AM EST PACE Home Care / [facility] [address] [place] [phone] Melissa Raza 10/12/2025 12:30 PM EST PACE Home Care / [facility] [address] [place] [phone] Melissa Raza 10/12/2025 5:30 PM EST PACE Home Care / [facility] [address] [place] [phone] Daksha Yates 10/13/2025 8:00 AM EST PACE Home Care / [facility] [address] [place] [phone] Tiana Sibley 10/13/2025 12:30 PM EST PACE Home Care / [facility] [address] [place] [address] Daksha Yates 10/13/2025 5:30 PM EST PACE Home Care / [facility] [address] [place] [address] Daksha Yates 10/14/2025 8:30 AM EST PACE Home Care / [facility] Visit [facility] [place] [facility] [address] [place] [address] Tiana Sibley 10/14/2025 12:30 PM EST PACE Home Care / [facility] [address] [place] [address] Daksha Yates 10/14/2025 5:30 PM EST PACE Home [facility] / [facility] [address] [place] [phone] Tiana Sibley 10/15/2025 8:30 AM EST PACE Home Care / [facility] [address] [place] [address] Tiana Sibley 10/15/2025 12:30 PM EST PACE Home Care / [facility] [address] [place] [phone] Tiana Sibley 10/15/2025 5:30 PM EST PACE Home Care / [facility] [place] [facility] [address] [place] [phone] Tiana Sibley 10/16/2025 8:00 AM EST PACE Home Care / [facility] [address] [place] [phone] Daksha Yates 10/16/2025 12:30 PM EST PACE Home Care / [facility] [address] [place] [phone] Daksha Yates 10/16/2025 5:30 PM EST P[facility] Home Care / [facility] [address] [place] [address] Daksha Yates 10/17/2025 8:00 AM EST P[facility] Home Care / [facility] [address] [place] [address] Melissa Raza 10/17/2025 12:30 PM EST PACE Home Care / [facility] [address] [place] [phone] Melissa Raza 10/17/2025 5:30 PM EST PACE Home Care / [facility] [address] [place] [phone] Daksha Yates 10/18/2025 8:00 AM EST PACE Home Care / [facility] [address] [place] [phone] Tiana Sibley 10/18/2025 12:30 PM EST PACE Home Care / [facility] [address] [place] [phone] Lata Ford 10/18/2025 5:30 PM EST PACE Home Care / [facility] [address] [place] [phone] Daksha Yates 10/19/2025 8:00 AM EST PACE Home Care / [facility] [address] [place] [phone] Melissa Raza 10/19/2025 12:30 PM EST PACE Home Care / [facility] [place] [facility] [address] [place] [phone] Melissa Raza 10/19/2025 5:30 PM EST PACE Home Care / [facility] [address] [place] [address] Daksha Yates 10/20/2025 8:00 AM EST PACE Home Care / [facility] [address] [place] [address] Tiana Sibley 10/20/2025 12:30 PM EST PACE Home Care / [facility] [address] [place] [address] Daksha Yates 10/20/2025 5:30 PM EST PACE Home Care / [facility] [address] [place] [phone] Daksha Yates 10/21/2025 8:30 AM EST PACE Home Care / [facility] [place] [facility] [address] [place] [phone] Tiana Sibley 10/21/2025 12:30 PM EST PACE Home Care / [facility] [address] [place] [phone] Daksha Yates 10/21/2025 5:30 PM EST PACE Home Care / [facility] [address] [place] [phone] Tiana Sibley 10/22/2025 8:30 AM EST PACE Home Care / [facility] [place] [facility] [address] [place] [phone] Tiana Sibley 10/22/2025 12:30 PM EST PACE Home Care / [facility] [place] [facility] [address] [place] [phone] Tiana Sibley 10/22/2025 5:00 PM EST PACE Home Care / [facility] [address] [place] [phone] Tiana Sibley 10/23/2025 8:30 AM EST P[facility] Home Care / [facility] [facility] [address] [place] [phone] Brigida Hendricks 10/23/2025 12:30 PM EST [facility] [address] [place] [phone] Brigida Hendricks 10/23/2025 5:30 PM EST [facility] / [facility] [address] [place] [phone] Brigida Hendricks 10/24/2025 8:00 AM EST [facility] / [facility] [address] [place] [phone] Melissa Raza 10/24/2025 12:30 PM EST [facility] / [facility] [address] [place] [phone] Melissa Raza 10/24/2025 5:30 PM EST [facility] / [facility] [address] [place] [phone] Daksha Yates 10/25/2025 8:00 AM EST [facility] / [facility] [address] [place] [phone] Tiana Sibley 10/25/2025 12:30 PM EST [facility] / [facility] [address] [place] [phone] Lata Ford 10/25/2025 5:30 PM EST [facility] / [facility] [address] [place] [phone] Daksha Yates 10/26/2025 8:00 AM EST [facility] / [facility] [address] [place] [phone] Melissa Raza 10/26/2025 12:30 PM EST [facility] / [facility] [place] [facility] [address] [place] [phone] Melissa Raza 10/26/2025 5:30 PM EST [facility] / [facility] [place] [facility] [address] [place] [phone] Daksha Yates 10/27/2025 8:00 AM EST [facility] / [facility] [place] [facility] [address] [place] [phone] Tiana Sibley 10/27/2025 12:30 PM EST [facility] / [facility] [place] [facility] [address] [place] [phone] [facility] 10/27/2025 5:30 PM EST [facility] / [facility] [place] [facility] [address] [place] [phone] [facility] 10/28/2025 8:30 AM EST [facility] / [facility] [address] [place] [phone] Tiana Sibley 10/28/2025 12:30 PM EST [facility] / [facility] [place] [facility] [address] [place] [phone] Daksha Yates 10/28/2025 5:30 PM EST [facility] / [facility] [place] [facility] [address] [place] [phone] Tinaa Sibley 10/29/2025 8:30 AM EST [facility] / [facility] [address] [place] [phone] Tiana Sibley 10/29/2025 12:30 PM EST [facility] / [facility] [address] [place] [phone] Tiana Sibley 10/29/2025 5:30 PM EST [facility] / [facility] [address] [place] [phone] Tiana Sibley 10/30/2025 8:00 AM EST [facility] / [facility] [place] [facility] [address] [place] [phone] Trudy [facility] 10/30/2025 12:30 PM EST [facility] / [facility] [place] [facility] [address] [place] [phone] Dansereadaniel [facility] 10/30/2025 5:30 PM EST [facility] / [facility] [place] [facility] [address] [place] [phone] Dansereadaniel [facility] 10/31/2025 8:00 AM EST [facility] / [facility] [place] [facility] [address] [place] [phone] Melissa Raza 10/31/2025 12:30 PM EST [facility] / [facility] [address] [place] [phone] Melissa Raza 10/31/2025 5:30 PM EST [facility] / [facility] [address] [place] [phone] Daksha Yates 11/01/2025 8:00 AM EST [facility] / [facility] [address] [place] [phone] Tiana Sibley 11/01/2025 12:30 PM EST [facility] / [facility] [address] [place] [phone] Lata Ford 11/01/2025 5:30 PM EST [facility] / [facility] [address] [place] [phone] Daksha Yates 11/02/2025 8:00 AM EST [facility] / [facility] [address] [place] [phone] Melissa Raza 11/02/2025 12:30 PM EST [facility] / [facility] [address] [place] [phone] Melissa Raza 11/02/2025 5:30 PM EST [facility] / [facility] [address] [place] [phone] Daksha Yates 11/03/2025 8:00 AM EST [facility] / [facility] [address] [place] [phone] Tiana Sibley 11/03/2025 12:30 PM EST [facility] / [facility] [address] [place] [phone] Daksha Yates 11/03/2025 5:30 PM EST [facility] / [facility] [address] [place] [phone] MeliadanielDaksha 11/04/2025 8:30 AM EST [facility] / [facility] [address] [place] [phone] Tiana Sibley 11/04/2025 12:30 PM EST [facility] / [facility] Visit [facility] [address] [place] [phone] Daksha Yates 11/04/2025 5:30 PM EST [facility] / [facility] Visit [facility] [address] [place] [phone] Tiana Sibley documented as of this encounter Visit Diagnoses Not on filedocumented in this encounter Additional Health Concerns Assessment Noted Time PHQ-9 Depression Total Score: 3 03/25/20 11:12 AM EDT documented as of this encounter Care Teams Mixing Machine Tender Cork Gasket Relationship Specialty Start Date End Date Reyna Zuniga NP [address] [place] [id number] PCP - General Family Medicine 11/06/24 documented as of this encounter
--- OUTSIDE RECORDS SUMMARY | 2025-09-05 12:00 | XMS_ITS | Encounter Summary ---
Author Organization [facility] Address [address] [place] [address] Care Team Providers Care Jig Operator Name Role Phone Reyna Zuniga DIRECT CHILL CASTER Primary Care Provider [phone] Encounter Details Date Type Department Care Team (Late st Contact Info) Description 09/05/2025 12:00 PM EST Office Visit 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 (CMS/HCC V24, CMS/HCC V28) (Primary Dx); Transient alteration of awareness; Primary hypertension; Orthostatic hypotension due to Parkinson disease (CMS/HCC V24, CMS/HCC V28); Acute cystitis without hematuria Social History Tobacco Use Types Packs/Day Years Used Date Smoking Tobacco: Former Cigarettes Smokeless Tobacco: Never Comments:Ex-smoker Sex and Gender Information Value Date Recorded Sex Assigned at Not on file Legal Sex Male 9:32 AM EST Gender Identity Not on file Sexual Orientation Not on file documented as of this encounter Last Filed Vital Signs Vital Sign Reading Time Taken Comments Blood Pressure 156/72 09/05/2025 2:19 PM EST Pulse 65 09/05/2025 2:19 PM EST Temperature 37.2 C (99 F) 09/05/2025 2:19 PM EST Respiratory Rate 18 09/05/2025 2:19 PM EST Oxygen Saturation 96% 09/05/2025 2:19 PM EST Inhaled Oxygen Concentration - - Weight 59 kg (130 lb) 09/05/2025 2:19 PM EST Height - - Body Mass Index 20.98 03/30/2025 3:00 PM EDT documented in this encounter Progress Notes * Ilsa Frias MD - 09/05/2025 12:00 PM EST error * Reyna Zuniga NP - 09/05/2025 12:00 PM EST Subjective Patient ID: Vincenzo Prieto is a 75 y.o. male. PAR presents with son, Blake who reports that since Friday PAR started with urinary incontinence.Friday aide notifed son that PAR was very confused and up all night. In bed all day yesterday. Difficult time walking. Not eating. Having night sweats. Oral intake is not great. Answering called yesterday and electronics technician provider called in antibiotic which he started yesterday at 430 pm. Last night at 700 pm son called EMS and they looked him over. Son spending the night with him. Review of Systems Constitutional: Positive for appetite change, chills, diaphoresis and fatigue. Respiratory: Negative for cough and shortness of breath. Gastrointestinal: Negative for abdominal pain and nausea. Genitourinary: Positive for frequency and urgency. Negative for flank pain and hematuria. Urinary incontinence Psychiatric/Behavioral: Positive for confusion and sleep disturbance. Objective Physical Exam Constitutional: General: He is not in acute distress. Appearance: Normal appearance. He is not ill-appearing, toxic-appearing or diaphoretic. HENT: Mouth/Throat: Mouth: Mucous membranes are moist. Pharynx: Oropharynx is clear. Cardiovascular: Rate and Rhythm: Normal rate and regular rhythm. Heart sounds: Normal heart sounds. No murmur heard. No friction rub. No gallop. Pulmonary: Effort: Pulmonary effort is normal. Breath sounds: Normal breath sounds. Abdominal: General: Abdomen is flat. Palpations: Abdomen is soft. Tenderness: There is abdominal tenderness (suprapubic). There is no right CVA tenderness or left CVA tenderness. Musculoskeletal: Cervical back: Neck supple. Right lower leg: No edema. Left lower leg: No edema. Neurological: Mental Status: He is alert. Assessment/Plan 1. 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 UTIs are common in DLB, and need to be treated to prevent urosepsis. 2. Transient alteration of awareness Still with some confusion. Secondary to underlying infection. Continue antibiotic. Hydrated with 1 Liter of LR via 20 gauge IV chad right forearm. PAR tolerated well. 3. Primary hypertension Starting Losartan today. Continue to take daily. 4. Orthostatic hypotension due to Parkinson disease (CMS/HCC V24, CMS/[facility] V28) Chronic condition; continue on midodrine; hold for SBP > 120. 5. Acute cystitis without hematuria Continue current antibiotic. Send urine for urine culture. Made son aware that antibiotic may need to be change depending on culture results. documented in this encounter Plan of Treatment Upcoming Encounters Date Type Department Care Team (Late st Contact Info) Description 09/06/2025 [facility] Support [facility] [address] [place] [phone] Federica Quinatna LPN 09/06/2025 8:00 AM EST P[facility] Home Care / [facility] Visit [facility] [address] [place] [phone] Tiana Sibley 09/06/2025 12:15 PM EST Treatment [facility] [address] [place] [address] Antonio Andrade OT 09/06/2025 5:30 PM EST PACE Home Care / PACE Home Visit [facility] [address] [place] [address] Daksha Yates 09/07/2025 8:30 AM EST P[facility] Home [facility] / [facility] [place] [facility] [address] [place] [address] Melissa Raza 09/07/2025 12:30 PM EST P[facility] Home [facility] / [facility] [place] [facility] [address] [place] [address] Melissa Raza 09/07/2025 5:30 PM EST PACE Home Care / [facility] [place] [facility] [place] [facility] [address] [place] [address] Daksha Yates 09/08/2025 8:30 AM EST [facility] Home [facility] / [facility] [place] [facility] [address] [place] [phone] Tiana Sibley 09/08/2025 12:30 PM EST P[facility] Home [facility] / [facility] [place] [facility] [place] [facility] [address] [place] [phone] Daksha Yates 09/08/2025 5:30 PM EST P[facility] Home [facility] / [facility] [place] [facility] [place] [facility] [address] [place] [phone] Daksha Yates 09/09/2025 8:30 AM EST PACE Home Care / [facility] [place] [facility] [place] [facility] [address] [place] [phone] Tiana Sibley 09/09/2025 12:30 PM EST P[facility] Home [facility] / [facility] [place] [facility] [address] [place] [phone] Daksha Yates 09/09/2025 5:30 PM EST P[facility] Home [facility] / [facility] [place] [facility] [address] [place] [phone] Tiana Sibley 09/10/2025 9:00 AM EST P[facility] Home [facility] / [facility] [place] [facility] [address] [place] [address] Tiana Sibley 09/10/2025 12:00 PM EST [facility] Home [facility] / [facility] [place] [facility] [address] [place] [address] Brigida Hendricks 09/10/2025 5:00 PM EST [facility] Home [facility] [place] [facility] [place] [facility] [address] [place] [address] Tiana Sibley 09/11/2025 7:30 AM EST P[facility] Home [facility] / [facility] [place] [facility] [place] [facility] [address] [place] [phone] Brigida Hendricks 09/11/2025 12:30 PM EST P[facility] Home [facility] / [facility] [place] [facility] [place] [facility] [address] [place] [phone] Brigida Hendricks 09/11/2025 5:30 PM EST P[facility] Home [facility] / [facility] [place] [facility] [place] [facility] [address] [place] [phone] Brigida Hendricks 09/12/2025 8:00 AM EST [facility] Home [facility] / [facility] [place] [facility] [address] [place] [address] Melissa Raza 09/12/2025 12:30 PM EST [facility] Home [facility] / [facility] [place] [facility] [place] [facility] [address] [place] [phone] Melissa Raza 09/12/2025 5:30 PM EST P[facility] Home [facility] / [facility] [place] [facility] [place] [facility] [address] [place] [phone] Daksha Yates 09/13/2025 Clinical Support [facility] [place] [facility] [address] [place] [address] Federica Quintana LPN 09/13/2025 8:00 AM EST [facility] Home [facility] / [facility] [place] [facility] [address] [place] [phone] Tiana Sibley 09/13/2025 12:30 PM EST [facility] / [facility] [address] [place] [phone] Lata Ford 09/13/2025 5:30 PM EST [facility] Home [facility] / [facility] [address] [place] [phone] Daksha Yates 09/14/2025 8:00 AM EST P[facility] Home [facility] / [facility] [address] [place] [phone] Melissa Raza 09/14/2025 12:30 PM EST P[facility] Home [facility] / [facility] [address] [place] [phone] Melissa Raza 09/14/2025 5:30 PM EST PACE Home [facility] / [facility] [place] [facility] [address] [place] [phone] Daksha Yates 09/15/2025 8:00 AM EST PACE Home [facility] / [facility] [place] [facility] [address] [place] [phone] Tiana Sibley 09/15/2025 12:30 PM EST PACE Home [facility] / [facility] [address] [place] [phone] Daksha Yates 09/15/2025 5:30 PM EST PACE Home [facility] / [place] [place] [facility] [address] [place] [address] Daksha Yates 09/16/2025 8:30 AM EST P[facility] Home [facility] / [facility] [place] [facility] [address] [place] [address] Tiana Sibley 09/16/2025 12:30 PM EST PACE Home [facility] / [facility] [place] [facility] [address] [place] [phone] Daksha Yates 09/16/2025 5:30 PM EST P[facility] Home [facility] / [facility] [place] [facility] [address] [place] [phone] Tiana Sibley 09/17/2025 8:30 AM EST P[facility] Home [facility] / [facility] [place] [facility] [address] [place] [address] Tiana Sibley 09/17/2025 12:30 PM EST P[facility] Home [facility] / [facility] [place] [facility] [address] [place] [phone] Tiana Sibley 09/17/2025 5:30 PM EST PACE Home [facility] / [facility] [place] [facility] [address] [place] [address] Tiana Sibley 09/18/2025 8:00 AM EST P[facility] Home [facility] / [facility] [place] [facility] [address] [place] [phone] Daksha Yates 09/18/2025 12:30 PM EST PACE Home [facility] / [facility] [place] [facility] [address] [place] [phone] Daksha Yates 09/18/2025 5:30 PM EST PACE Home [facility] / [facility] [place] [facility] [address] [place] [phone] Daksha Yates 09/19/2025 8:00 AM EST PACE Home [facility] / [facility] [place] [facility] [address] [place] [phone] Melissa Raza 09/19/2025 12:30 PM EST PACE Home [facility] / [facility] [place] [facility] [place] [facility] [address] [place] [phone] Melissa Raza 09/19/2025 5:30 PM EST PACE Home [facility] / [place] [place] [facility] [place] [facility] [address] [place] [phone] Daksha Yates 09/20/2025 Clinical Support [facility] [place] [facility] [address] [place] [phone] Federica Quintana LPN 09/20/2025 8:00 AM EST PACE Home Care / [facility] [place] [facility] [place] [facility] [address] [place] [phone] Tiana Sibley 09/20/2025 12:30 PM EST P[facility] Home [facility] / [facility] [place] [facility] [address] [place] [phone] Lata Ford 09/20/2025 5:30 PM EST P[facility] Home [facility] / [facility] [place] [facility] [address] [place] [phone] Daksha Yates 09/21/2025 8:00 AM EST PACE Home [facility] / [facility] [place] [facility] [address] [place] [phone] Melissa Raza 09/21/2025 12:30 PM EST P[facility] Home [facility] / [facility] [place] [facility] [address] [place] [phone] Melissa Raza 09/21/2025 5:30 PM EST P[facility] Home [facility] / [facility] [place] [facility] [address] [place] [address] Daksha Yates 09/22/2025 8:00 AM EST P[facility] Home [facility] / [facility] [place] [facility] [place] [facility] [address] [place] [address] Tiana Sibley 09/22/2025 12:30 PM EST PACE Home [facility] / [facility] [place] [facility] [place] [facility] [address] [place] [phone] Daksha Yates 09/22/2025 5:30 PM EST PACE Home [facility] / [facility] [place] [facility] [address] [place] [phone] Daksah Yates 09/23/2025 8:30 AM EST P[facility] Home [facility] / [facility] [place] [facility] [place] [facility] [address] [place] [phone] Tiana Sibley 09/23/2025 12:30 PM EST P[facility] Home [facility] / [facility] [place] [facility] [address] [place] [phone] Daksha Yates 09/23/2025 5:30 PM EST P[facility] Home [facility] / [facility] [place] [facility] [address] [place] [phone] Tiana Sibley 09/24/2025 8:30 AM EST [facility] Home [facility] / [facility] [place] [facility] [address] [place] [phone] Tiana Sibley 09/24/2025 12:30 PM EST [facility] Home [facility] / [facility] [place] [facility] [address] [place] [phone] Tiana Sibley 09/24/2025 5:00 PM EST P[facility] Home [facility] / [facility] [place] [facility] [address] [place] [phone] Tiana Sibley 09/25/2025 8:30 AM EST P[facility] Home [facility] / [facility] [place] [facility] [address] [place] [phone] Brigida Hendricks 09/25/2025 12:30 PM EST [facility] Home [facility] / [facility] [place] [facility] [address] [place] [phone] Brigida Hendrciks 09/25/2025 5:30 PM EST P[facility] Home [facility] / [facility] [place] [facility] [place] [facility] [address] [place] [phone] Brigida Hendricks 09/26/2025 8:00 AM EST P[facility] Home [facility] / [place] [place] [facility] [place] [facility] [address] [place] [phone] Melissa Raza 09/26/2025 12:30 PM EST [facility] Home [facility] / [facility] [place] [facility] [address] [place] [phone] Melissa Raza 09/26/2025 5:30 PM EST P[facility] Home [facility] / [facility] [place] [facility] [address] [place] [phone] Daksha Yates 09/27/2025 Clinical Support [facility] [place] [facility] [address] [place] [phone] Federica Quintana LPN 09/27/2025 8:00 AM EST [facility] Home [facility] / [facility] [place] [facility] [address] [place] [phone] Tiana Sibley 09/27/2025 12:30 PM EST [facility] Home [facility] / [facility] [place] [facility] [address] [place] [address] Lata Ford 09/27/2025 5:30 PM EST P[facility] Home [facility] / [facility] [place] [facility] [address] [place] [phone] Daksha Yates 09/28/2025 8:00 AM EST P[facility] Home [facility] / [facility] [place] [facility] [address] [place] [phone] Melissa Raza 09/28/2025 12:30 PM EST [facility] Home [facility] / [facility] [place] [facility] [address] [place] [phone] Melissa Raza 09/28/2025 5:30 PM EST [facility] Home [facility] / [facility] [place] [facility] [address] [place] [phone] Daksha Yates 09/29/2025 8:00 AM EST [facility] Home [facility] / [facility] [place] [facility] [address] [place] [phone] Tiana Sibley 09/29/2025 12:30 PM EST [facility] Home [facility] / [facility] [place] [facility] [address] [place] [phone] Daksha Yates 09/29/2025 5:30 PM EST [facility] Home [facility] / [facility] [place] [facility] [address] [place] [phone] Daksha Yates 09/30/2025 8:30 AM EST [facility] Home [facility] / [facility] [place] [facility] [address] [place] [address] Tiana Sibley 09/30/2025 12:30 PM EST [facility] Home [facility] / [facility] [place] [facility] [address] [place] [phone] [facility] 09/30/2025 5:30 PM EST [facility] Home [facility] / [facility] [place] [facility] [address] [place] [address] Tiana Sibley 10/01/2025 8:30 AM EST [facility] Home [facility] / [facility] [place] [facility] [address] [place] [phone] Tiana Sibley 10/01/2025 12:30 PM EST [facility] Home [facility] / [facility] [place] [facility] [address] [place] [phone] Tiana Sibley 10/01/2025 5:30 PM EST P[facility] Home [facility] / [facility] [place] [facility] [address] [place] [phone] Tiana Sibley 10/02/2025 8:00 AM EST P[facility] Home [facility] [place] [facility] [address] [place] [phone] [facility] 10/02/2025 12:30 PM EST [facility] Home [facility] / [facility] [place] [facility] [address] [place] [phone] [facility] 10/02/2025 5:30 PM EST P[facility] Home [facility] / [facility] [place] [facility] [address] [place] [phone] Daksha Yates 10/03/2025 8:00 AM EST P[facility] Home [facility] / [facility] [address] [place] [address] Melissa Raza 10/03/2025 12:30 PM EST [facility] Home [facility] / [facility] [address] [place] [phone] Melissa Raza 10/03/2025 5:30 PM EST [facility] Home [facility] / [facility] [address] [place] [phone] Daksha Yates 10/04/2025 Clinical Support [facility] [address] [place] [phone] Federica Quintana LPN 10/04/2025 8:00 AM EST P[facility] Home [facility] / [facility] [address] [place] [phone] Tiana Sibley 10/04/2025 12:30 PM EST [facility] Home [facility] / [facility] [address] [place] [phone] Lata Ford 10/04/2025 5:30 PM EST [facility] Home [facility] / [facility] [address] [place] [phone] Daksha Yates 10/05/2025 8:00 AM EST [facility] Home [facility] / [facility] [address] [place] [phone] Melissa Raza 10/05/2025 12:30 PM EST [facility] Home [facility] / [facility] [address] [place] [phone] Melissa Raza 10/05/2025 5:30 PM EST [facility] Home [facility] / [facility] [place] [facility] [address] [place] [phone] Daksha Yates 10/06/2025 8:00 AM EST [facility] Home [facility] / [facility] [place] [facility] [address] [place] [phone] Tiana Sibley 10/06/2025 12:30 PM EST P[facility] Home [facility] / [facility] [place] [facility] [address] [place] [phone] Daksha Yates 10/06/2025 5:30 PM EST P[facility] Home [facility] / [facility] [place] [facility] [address] [place] [phone] Daksha Yates 10/07/2025 8:30 AM EST P[facility] Home [facility] / [facility] [place] [facility] [address] [place] [phone] Tiana Sibley 10/07/2025 12:30 PM EST P[facility] Home [facility] / [facility] [place] [facility] [address] [place] [phone] Daksha Yates 10/07/2025 5:30 PM EST P[facility] Home [facility] / [facility] [place] [facility] [address] [place] [phone] Tiana Sibley 10/08/2025 8:30 AM EST P[facility] Home [facility] / [facility] [place] [facility] [address] [place] [phone] Tiana Sibley 10/08/2025 12:30 PM EST P[facility] Home [facility] / [facility] [place] [facility] [address] [place] [address] [place] [phone] Tiana Sibley 10/08/2025 5:00 PM EST P[facility] Home [facility] / [facility] [place] [facility] [address] [place] [phone] Tiana Sibley 10/09/2025 8:30 AM EST [facility] Home [facility] / [facility] [address] [place] [phone] Brigida Hendricks 10/09/2025 12:30 PM EST [facility] Home [facility] / [facility] [address] [place] [phone] Brigida Hendricks 10/09/2025 5:30 PM EST [facility] Home [facility] / [facility] [address] [place] [phone] Brigida Hendricks 10/10/2025 8:00 AM EST [facility] Home [facility] / [facility] [address] [place] [phone] Melissa Raza 10/10/2025 12:30 PM EST [facility] Home [facility] / [facility] [address] [place] [phone] Melissa Raza 10/10/2025 5:30 PM EST [facility] Home [facility] / [facility] [place] [facility] [address] [place] [phone] Daksha Yates 10/11/2025 8:00 AM EST [facility] Home [facility] / [facility] [address] [place] [address] Tiana Sibley 10/11/2025 12:30 PM EST [facility] Home [facility] / [facility] [address] [place] [address] Lata Ford 10/11/2025 5:30 PM EST [facility] Home [facility] / [facility] [address] [place] [phone] Daksha Yates 10/12/2025 8:00 AM EST P[facility] Home [facility] / [facility] [place] [facility] [address] [place] [phone] Melissa Raza 10/12/2025 12:30 PM EST [facility] Home [facility] / [facility] [place] [facility] [address] [place] [phone] Melissa Raza 10/12/2025 5:30 PM EST [facility] Home [facility] / [facility] [place] [facility] [address] [place] [phone] Daksha Yates 10/13/2025 8:00 AM EST [facility] Home [facility] / [facility] [place] [facility] [address] [place] [phone] Tiana Sibley 10/13/2025 12:30 PM EST [facility] Home [facility] / [facility] [place] [facility] [address] [place] [phone] Daksha Yates 10/13/2025 5:30 PM EST P[facility] Home [facility] / [facility] [place] [facility] [address] [place] [phone] Daksha Yates 10/14/2025 8:30 AM EST P[facility] Home [facility] / [facility] [place] [facility] [address] [place] [phone] Tiana Sibley 10/14/2025 12:30 PM EST [facility] Home [facility] / [facility] [place] [facility] [address] [place] [address] Daksha Yates 10/14/2025 5:30 PM EST [facility] Home [facility] / [facility] [address] [place] [address] Tiana Sibley 10/15/2025 8:30 AM EST [facility] Home [facility] / [facility] [address] [place] [address] Tiana Sibley 10/15/2025 12:30 PM EST [facility] Home [facility] / [facility] [address] [place] [address] Tiana Sibley 10/15/2025 5:30 PM EST [facility] Home [facility] / [facility] [address] [place] [address] Tiana Sibley 10/16/2025 8:00 AM EST [facility] Home [facility] / [facility] [address] [place] [phone] [facility] [facility] 10/16/2025 12:30 PM EST [facility] / [facility] [address] [place] [phone] Dansereadaniel, [facility] 10/16/2025 5:30 PM EST P[facility] Home [facility] / [facility] [address] [place] [phone] Danskimberly, [facility] 10/17/2025 8:00 AM EST [facility] Home [facility] / [facility] [address] [place] [phone] Melissa Raza 10/17/2025 12:30 PM EST [facility] Home [facility] / [facility] [address] [place] [phone] Melissa Raza 10/17/2025 5:30 PM EST [facility] Home [facility] / [facility] [address] [place] [phone] Daksha Yates 10/18/2025 8:00 AM EST [facility] Home [facility] / [facility] [address] [place] [phone] Tiana Sibley 10/18/2025 12:30 PM EST [facility] Home [facility] / [facility] [address] [place] [phone] Lata Ford 10/18/2025 5:30 PM EST [facility] Home [facility] / [facility] [address] [place] [phone] Daksha Yates 10/19/2025 8:00 AM EST [facility] Home [facility] / [facility] [address] [place] [phone] Melissa Raza 10/19/2025 12:30 PM EST [facility] Home [facility] / [facility] [address] [place] [phone] Melissa Raza 10/19/2025 5:30 PM EST [facility] Home [facility] / [facility] [address] [place] [phone] Daksha Yates 10/20/2025 8:00 AM EST [facility] Home [facility] / [facility] [address] [place] [phone] Tiana Sibley 10/20/2025 12:30 PM EST [facility] Home [facility] / [facility] [address] [place] [phone] Daksha Yates 10/20/2025 5:30 PM EST [facility] Home [facility] / [facility] [address] [place] [phone] Daksha Yates 10/21/2025 8:30 AM EST [facility] Home [facility] / [facility] [address] [place] [phone] Tiana Sibley 10/21/2025 12:30 PM EST [facility] Home [facility] / [facility] [address] [place] [phone] Daksha Yates 10/21/2025 5:30 PM EST [facility] Home [facility] / [facility] [address] [place] [phone] Tiana Sibley 10/22/2025 8:30 AM EST [facility] Home [facility] / [facility] [address] [place] [phone] Tiana Sibley 10/22/2025 12:30 PM EST [facility] Home [facility] / [facility] [address] [place] [phone] Tiana Sibley 10/22/2025 5:00 PM EST [facility] Home [facility] / [facility] [address] [place] [phone] Tiana Sibley 10/23/2025 8:30 AM EST [facility] Home [facility] / [facility] [address] [place] [phone] Brigida Hendricks 10/23/2025 12:30 PM EST [facility] Home [facility] / [facility] [address] [place] [phone] Brigida Hendricks 10/23/2025 5:30 PM EST [facility] Home [facility] / [facility] [address] [place] [phone] Brigida Hendricks 10/24/2025 8:00 AM EST [facility] Home [facility] / [facility] [address] [place] [phone] Melissa Raza 10/24/2025 12:30 PM EST [facility] Home [facility] / [facility] [address] [place] [phone] Melissa Raza 10/24/2025 5:30 PM EST [facility] Home [facility] / [facility] [address] [place] [phone] Daksha Yates 10/25/2025 8:00 AM EST [facility] Home [facility] / [facility] [address] [place] [phone] Tiana Sibley 10/25/2025 12:30 PM EST [facility] Home [facility] / [facility] [address] [place] [phone] Lata Ford 10/25/2025 5:30 PM EST [facility] Home [facility] / [facility] [address] [place] [phone] Daksha Yates 10/26/2025 8:00 AM EST [facility] Home [facility] / [facility] [address] [place] [phone] Melissa Raza 10/26/2025 12:30 PM EST [facility] Home [facility] / [facility] [address] [place] [phone] Melissa Raza 10/26/2025 5:30 PM EST [facility] Home [facility] / [facility] [address] [place] [phone] Daksha Yates 10/27/2025 8:00 AM EST [facility] Home [facility] / [facility] [address] [place] [phone] Tiana Sibley 10/27/2025 12:30 PM EST [facility] Home [facility] / [facility] [address] [place] [phone] Daksha Yates 10/27/2025 5:30 PM EST [facility] Home [facility] / [facility] [address] [place] [phone] Daksha Yates 10/28/2025 8:30 AM EST [facility] Home [facility] / [facility] [address] [place] [phone] Tiana Sibley 10/28/2025 12:30 PM EST [facility] Home [facility] / [facility] [address] [place] [phone] Daksha Yates 10/28/2025 5:30 PM EST [facility] Home [facility] / [facility] [address] [place] [phone] Tiana Sibley 10/29/2025 8:30 AM EST [facility] Home [facility] / [facility] [address] [place] [phone] Tiana Sibley 10/29/2025 12:30 PM EST [facility] Home [facility] / [facility] [address] [place] [phone] Tiana Sibley 10/29/2025 5:30 PM EST [facility] Home [facility] / [facility] [address] [place] [phone] Tiana Sibley 10/30/2025 8:00 AM EST [facility] Home [facility] / [facility] [address] [place] [phone] Daksha Yates 10/30/2025 12:30 PM EST [facility] Home [facility] / [facility] [address] [place] [phone] Daksha Yates 10/30/2025 5:30 PM EST [facility] Home [facility] / [facility] [address] [place] [phone] Daksha Yates 10/31/2025 8:00 AM EST [facility] Home [facility] / [facility] [address] [place] [phone] Melissa Raza 10/31/2025 12:30 PM EST [facility] Home [facility] / [facility] [address] [place] [phone] Melissa Raza 10/31/2025 5:30 PM EST [facility] Home [facility] / [facility] [address] [place] [phone] Daksha Yates 11/01/2025 8:00 AM EST [facility] Home [facility] / [facility] [address] [place] [phone] Tiana Sibley 11/01/2025 12:30 PM EST [facility] Home [facility] / [facility] [address] [place] [phone] Lata Ford 11/01/2025 5:30 PM EST [facility] Home [facility] / [facility] [address] [place] [phone] Daksha Yates 11/02/2025 8:00 AM EST [facility] Home [facility] / [facility] [address] [place] [phone] Melissa Raza 11/02/2025 12:30 PM EST [facility] Home [facility] / [facility] [address] [place] [phone] Melissa Raza 11/02/2025 5:30 PM EST [facility] Home [facility] / [facility] [address] [place] [phone] Daksha Yates 11/03/2025 8:00 AM EST [facility] Home [facility] / [facility] [address] [place] [phone] Tiana Sibley 11/03/2025 12:30 PM EST [facility] Home [facility] / [facility] [address] [place] [phone] Daksha Yates 11/03/2025 5:30 PM EST [facility] Home [facility] / [facility] [address] [place] [phone] Daksha Yates 11/04/2025 8:30 AM EST [facility] Home [facility] / [facility] [address] [place] [phone] Tiana Sibley 11/04/2025 12:30 PM EST [facility] Home Care / [facility] [address] [place] [phone] Daksha Yates 11/04/2025 5:30 PM EST [facility] Home Care / [facility] [address] [place] [phone] Tiana Sibley documented as of this encounter Visit Diagnoses Diagnosis 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 (CMS/[facility] V24, CMS/[facility] V28)- Primary Transient alteration of awareness Primary hypertension Unspecified essential hypertension Orthostatic hypotension due to Parkinson disease (CMS/HCC V24, CMS/[facility] V28) Acute cystitis without hematuria documented in this encounter Additional Health Concerns Assessment Noted Time PHQ-9 Depression Total Score: 3 03/25/20 11:12 AM EDT documented as of this encounter Care Teams Jig Operator Relationship Specialty Start Date End Date Reyna Zuniga NP [address] [place] [phone] PCP - General Family Medicine 11/06/24 documented as of this encounter
--- NOTE | 2025-09-05 22:30 | ECG_ITS ---
Test Reason : FALL Blood Pressure : */* mmHG Vent. Rate : 56 BPM Atrial Rate : 56 BPM P-R Int : 132 ms QRS Dur : 92 ms QT Int : 454 ms P-R-T Axes : 85 36 47 degrees QTcB Int : 438 ms Sinus bradycardia Otherwise normal ECG When compared with ECG of 19-Dec-2022 12:44, No significant change was found Referred By: Mckenzie Frankel Electronically Signed By: TEETEE LACEY
[2025-09-05 22:31] VITALS: BP 140/70; PULSE 55; O2SAT 96
--- NOTE | 2025-09-05 22:38 | ED.GENADULT ---
HPI - General Adult General Chief complaint: Syncope Stated complaint: ams, near syncope Time Seen by Provider: 09/05/25 22:28 Source: EMS Mode of arrival: EMS Limitations: altered mental status History of Present Illness ED Provider: Dr. Mckenzie Frankel HPI narrative: Patient comes to the emergency room via EMS. Patient is known to have history of Parkinson's, Lewy body dementia and recurrent UTIs. According to EMS, seems that the patient SI himself and his son checks on him every day. Yesterday, the patient's seemed to be acting a bit strange, less active than usual. Usually this is how he starts acting on his UTIs. According to EMS, the patient's son called the primary care physician's office and they started him on some antibiotic. However, patient is altered mental status kept getting worse throughout the day. What triggered the patient's son to call EMS, was that the patient had a near syncopal episode. However, according to EMS, today is the 1st day that patient has his 1st dose of losartan which is a new prescription for him. Patient is known to be very hard of hearing. However, even speaking to him in Hungarian and Cypriot, patient is confused and not answering questions appropriately. Related Data Home Medications ?Medication ?Instructions ?Recorded ?Confirmed quetiapine 25 mg tablet 25 mg PO BEDTIME 12/20/24 08/23/25 finasteride 5 mg tablet 5 mg PO DAILY 08/23/25 08/23/25 midodrine 5 mg tablet 5 mg PO TID 08/23/25 08/23/25 Previous Rx's ?Medication ?Instructions ?Recorded fluticasone propionate 50 2 spray intranasal DAILY PRN 12/19/22 mcg/actuation nasal allergy symptoms 30 days #16 grams spray,suspension sennosides 8.6 mg tablet (senna) 17.2 mg (2 x 8.6 mg) PO BEDTIME 09/02/23 constipation 30 days #60 tabs escitalopram oxalate 5 mg tablet 5 mg PO DAILY 90 days #90 tabs 10/01/23 atorvastatin 40 mg tablet 40 mg PO BEDTIME 90 days #90 tabs 11/29/23 melatonin 3 mg capsule 3 mg PO BEDTIME PRN sleep #30 caps 04/29/25 rasagiline 1 mg tablet 1 mg PO DAILY 3 months #90 tabs 05/10/25 carbidopa 25 mg-levodopa 100 mg 1 tab PO TID 90 days #270 tabs 08/23/25 tablet Allergies Allergy/AdvReac Type Severity Reaction Status Date / Time No Known Allergies (No Known Allergy Verified 09/05/25 23:07 Allergies*) Review of Systems Review of Systems: Yes Unobtainable due to mental status [facility] Past Medical History Medical History Orthostatic hypotension Hallucinations Benign prostate hyperplasia Parkinson's disease without dyskinesia or fluctuating manifestations Erectile dysfunction Impaired fasting glucose Hearing impairment Parkinson's disease Pure hypercholesterolemia Benign essential hypertension Surgical History History of cochlear implant (~01/03/23) History of hernia surgery Family History Family History Father No problems noted. Mother No problems noted. Social History Social History Household Members: None Housing: House Do you presently have visiting nurse or other home services: No Alcohol intake: current Alcohol intake frequency: holidays/special occasions only Alcohol type: beer Comment: occasionally Patient Tobacco Use Status: Former Tobacco user Tobacco use type: Cigarette e-Cigarette/Vaping Use: Never Used Second Hand Smoke Exposure: No Advance Directives: No Advance Directives Information Provided: Yes service: No Current occupational status: retired Cognitive needs: No Hearing needs: Yes (hearing aide) Vision needs: Yes (reading glasses) Physical Exam ED Exam Exam: Appearance: Alert. Oriented X3. No acute distress. Eyes: Pupils equal, round and reactive to light. ENT: Pharynx normal. Neck: Normal inspection. Neck supple. No lymph nodes noted. No crepitus CVS: Normal heart rate and rhythm. Pulses normal. Normal S1 and S2 Respiratory: No respiratory distress. Breath sounds normal. No Wheezing. No rales Abdomen: Soft and nontender. No rigidity. No distention. Skin: Skin warm and dry. Normal skin color. Normal skin turgor. Extremities: No lower extremity edema. No Lacerations. No Rash Neuro: Oriented X 3. No motor deficit. No sensory deficit. Moving all extremities. No slurred speech. CN 2 through 12 grossly intact Psych: calm, cooperative, normal affect Vital Signs: Vital Signs - 24 hr 09/05/25 22:54 09/05/25 23:06 09/05/25 23:06 Temperature 97.9 F Pulse Rate 56 55 58 Respiratory Rate 18 Blood Pressure 133/61 137/65 122/63 Pulse Oximetry 98 Oxygen Delivery Method Room Air 09/05/25 23:07 09/06/25 04:23 09/06/25 04:24 Temperature Pulse Rate 56 67 62 Respiratory Rate Blood Pressure 89/46 L 148/52 H 142/52 H Pulse Oximetry Oxygen Delivery Method 09/06/25 04:25 Temperature Pulse Rate 70 Respiratory Rate Blood Pressure 182/100 H Pulse Oximetry Oxygen Delivery Method BMI result Body Mass Index 21.0 Course Course Course Narrative: Patient comes to the emergency room reporting urinary incontinence, or altered mental status. Patient known to currently be on treatment for a UTI. Had this time, it is unclear which antibiotics the patient is taking. Patient receiving empiric IV fluids and ceftriaxone. Medications Administered Discontinued Medications Generic Name Dose Route Start Last Admin Trade Name Freq PRN Reason Stop Dose Admin Sodium Chloride 2,000 mls @ 999 mls/hr 09/05/25 22:40 09/06/25 04:00 Ns IVCONT 09/06/25 00:40 Infused .Q2H1M ONE Infusion Ceftriaxone Sodium 1 gm/ 50 mls @ 100 mls/hr 09/05/25 22:40 09/06/25 00:09 Sodium Chloride IV 09/05/25 23:09 Infused ONCE ONE Infusion Medical Decision Making Medical Decision Making [facility] Narrative: My interpretation of EKG: Sinus bradycardia, heart rate 56, no ST segment depression or elevation patient, QTC 438 My interpretation of labs: No significant abnormality patient's hematology and chemistry, T bili slightly bumped, patient does not have any abdominal pain LFTs normal. Urinalysis negative for UTI Patient's orthostatic vitals were significantly positive the 1st time around. Patient received IV fluids 2 L Patient is already taking cefdinir. After IV fluids, patient's orthostatic vitals were negative, patient asymptomatic, patient more awake and alert. We spoke with the patient's son, who is willing to take his father back home. They seem to have services already in place. Patient instructed to continue taking cefdinir Differential Diagnosis Differential Diagnoses: The differential diagnosis associated with the presentation includes (Orthostatic hypotension, UTI, high dose of blood pressure medication.) Admission/Observation Consideration of admission/observation: Escalation of care including admission/observation considered (Patient's age and symptoms, observation was considered) Lab Data MDM Lab Attestation statement: I reviewed the patient's lab results. 09/05/25 23:33 09/05/25 23:33 Labs: Lab Results 09/05/25 09/06/25 Range/Units 23:33 01:34 WBC 8.4 (4.8-10.8) X10*3/uL RBC 4.00 L (4.60-5.80) X10*6/uL Hgb 12.8 L (14.0-18.0) g/dl Hct 37.3 L (42.0-52.0) % MCV 93.3 (80.0-98.0) fL MCH 32.0 (27.0-33.0) pg MCHC 34.3 (31.0-36.0) g/dl RDW 12.7 (11.0-16.0) % Plt Count 182 (160-400) X10*3/uL MPV 10.4 (9.4-12.4) fL Immature Gran % (Auto) 0.6 H (0.0-0.4) % Neut % (Auto) 70.0 (45-73) % Lymph % (Auto) 11.8 L (20-40) % Grimes % (Auto) 16.7 H (2-11) % Eos % (Auto) 0.5 (0-4) % Baso % (Auto) 0.4 (0-2) % Lymph # (Auto) 1.0 L (1.2-4.9) X10*3/uL Grimes # (Auto) 1.4 H (0.1-1.2) X10*3/uL Eos # (Auto) 0.0 (0.0-0.4) X10*3/uL Baso # (Auto) 0.0 (0.0-0.2) X10*3/uL Abs Immat Gran (auto) 0.05 H (0.00-0.03) X10*3/uL Absolute Neuts (auto) 5.9 (2.0-8.3) x10*3/uL Absolute Nucleated RBC 0.000 (0.0-0.012) X10*3/uL Nucleated RBC % (auto) 0.0 (0.0-0.2) /100WBC Sodium 135 (135-145) mmol/L Potassium 4.1 (3.3-5.1) mmol/L Chloride 102 (96-108) mmol/L Carbon Dioxide 27 (22-29) mmol/L Anion Gap 10 L (12-20) BUN 31 H (9-16) mg/dL Creatinine 1.29 (0.5-1.4) mg/dL Estim Creat Clear Calc 39.9 Estimated GFR 54 Random Glucose 120 H (60-115) mg/dL Calcium 8.8 (8.4-10.2) mg/dL Magnesium 2.2 (1.6-2.6) mg/dL Total Bilirubin 1.4 H (0.0-1.0) mg/dL Direct Bilirubin 0.5 (0.0-0.5) mg/dL AST 29 (5-37) U/L ALT < 6 (0-40) U/L Alkaline Phosphatase 81 (39-117) U/L Troponin I High Sens 13.4 (<3.5-35.0) ng/L Total Protein 6.7 (6.5-8.0) g/dL Albumin 3.7 (3.5-5.0) g/dL Urine Color Yellow Urine Appearance Clear Urine pH 7.0 (5.0-9.0) Ur Specific Newton <= 1.005 (1.005-1.025) Urine Protein Negative (Neg-Trace) mg/dL Urine Glucose (UA) Negative (Negative) mg/dL Urine Ketones Negative (Negative) mg/dL Urine Blood Negative (Negative) Urine Nitrite Negative (Negative) Ur Leukocyte Esterase Moderate (2+) H (Negative) Urine RBC 0-2 (0-2) /HPF Urine WBC 0-5 (0-5) /HPF Ur Squamous Epith Cells 0-2 (0-2) /HPF Urine Bacteria None Seen (None Seen) Hyaline Casts 0-2 (0-2) /LPF Urine Opiates Screen Not Detected (Not Detect) Ur Buprenorphine Scrn Not Detected (Not Detect) ng/mL Ur Oxycodone Screen Not Detected (Not Detect) ng/mL Urine Methadone Screen Not Detected (Not Detect) ng/mL Urine Fentanyl Screen Not Detected (Not Detect) Ur Barbiturates Screen Not Detected (Not Detect) Ur Phencyclidine Scrn Not Detected (Not Detect) Ur Amphetamines Screen Not Detected (Not Detect) U Benzodiazepines Scrn Not Detected (Not Detect) Urine Cocaine Screen Not Detected (Not Detect) U Marijuana (THC) Screen Not Detected (Not Detect) Influenza Type A (PCR) NEGATIVE (Negative) Influenza Type B (PCR) NEGATIVE (Negative) RSV RNA Qual (PCR) NEGATIVE (Negative) SARS-CoV-2 RNA (RT-PCR) NEGATIVE (Negative) Critical Care Time Critical Care Time Critical Care Time: Yes Total Critical Care Time: 35 Attestation: I have personally provided critical care time. Time includes review of lab data, radiology results, discussion with consultants, and monitoring for potential decompensation. Intervention performed as documented. Discharge Plan Discharge Clinical Impression: Orthostatic hypotension Patient Disposition: Home, Self-Care Instructions: Hypotension (ED) Additional Instructions: Please follow-up with your primary care physician tomorrow. If you have any worsening or new symptoms, please return to the emergency room or call 911 Prescriptions: No Action atorvastatin 40 mg tablet 40 mg PO BEDTIME 90 Days Qty: 90 1RF melatonin 3 mg capsule 3 mg PO BEDTIME PRN (Reason: sleep) Qty: 30 6RF rasagiline 1 mg tablet 1 mg PO DAILY 90 Days Qty: 90 6RF fluticasone propionate 50 mcg/actuation spray,suspension 2 spray intranasal DAILY PRN (Reason: allergy symptoms) 30 Days Qty: 16 2RF Rx Instructions: administer into each nostril escitalopram oxalate 5 mg tablet 5 mg PO DAILY 90 Days Qty: 90 1RF sennosides [senna] 8.6 mg tablet 17.2 mg PO BEDTIME 30 Days Qty: 60 3RF quetiapine 25 mg tablet 25 mg PO BEDTIME finasteride 5 mg tablet 5 mg PO DAILY carbidopa-levodopa 25-100 mg tablet 1 tab PO TID 90 Days Qty: 270 6RF midodrine 5 mg tablet 5 mg PO TID Rx Instructions: do not give last dose of day after 6PM or within 4 hrs of bedtime Print Language: Hungarian
[2025-09-05 22:54] VITALS: BP 133/61; PULSE 56; RESP 18; TEMP 36.6; O2SAT 98; BMI 21.0
[2025-09-05 23:06] VITALS: BP 122/63; BP 137/65; PULSE 55; PULSE 58
[2025-09-05 23:07] VITALS: BP 89/46; PULSE 56
[2025-09-05 23:41] LABS: MANUAL DIFF FLAG NO
--- OUTSIDE RECORDS SUMMARY | 2025-09-05 23:49 | XMS_ITS | Clinical Summary ---
Author Organization [facility] [place] [address] Phone Care Team Providers Care Certified Medical Coding Specialist Name Role Phone Reyna Zuniga LASTING MACHINE OPERATOR Primary Care Provider [phone] Allergies No known active allergies Medications polyethylene [...] day at bedtime 30 each 07/21/20 Active escitalopram (LEXAPRO) 5 [...] each day in the evening. 28 each 08/22/20 25 Active carbidopa-levodopa (SINEMET) 25-100 mg per tabletIndications: Parkinson's disease without dyskinesia, with fluctuating manifestations (CMS/HCC V24, CMS/HCC V28) Take 1 tablet by mouth 3 (three) times a day. Morning, noon and evening dosing 90 tablet 11 08/22/20 026 Active losartan (Cozaar) 25 mg tabletIndications: Primary hypertension Take 1 tablet (25 mg total) by mouth 1 (one) time each day. Hold for standing SBP <120 28 each 08/30/20 25 026 Active cefdinir (OMNICEF) 300 mg capsuleIndications :Acute cystitis without hematuria Take 1 capsule (300 mg total) by mouth 2 (two) times a day for 10 days. 20 each 09/04/20 25 025 Active carbidopa-levodopa (SINEMET) 25-100 mg per tabletIndications: [...] each 07/21/20 25 025 Discontinu ed(Reorder ) metoprolol tartrate (LOPRESSOR) 25 mg tabletIndications: Primary hypertension Take 0.5 tablets (12.5 mg total) by mouth 2 (two) times a day. 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 Betablocker stopped. Son has already removed extra items, has put padding around sharp furniture corners. He will install another camera in the home where pt's falls can be visualized. History of cochlear implant 08/24/2025 Overview (08/24/2025): L ear, around 2021 Assessment & Plan (08/24/2025 3:10 PM EST): Added for completion of problem list. L ear, around 2021. Vertigo 08/24/2025 Assessment & Plan (08/24/2025 3:10 PM EST): Therapy: pls show pt and son how to do the Meena manoevers. This way they know how to do this when he gets severe vertigo. Hallucinations 08/24/2025 Assessment & Plan (08/24/2025 3:10 PM EST): Low dose quetiapine 25mg seems to work well for his hallucinations, per son. Postural dizziness with presyncope 08/24/2025 Assessment & Plan (08/24/2025 3:10 PM EST): Therapy: Patient needs strong grab bars around the house. A shower chair would be helpful, to prevent future falls. Also pls evaluate for an easily lockable 3-wheel or 4 wheel rolling walker (with seat), that patient can use at home and outside the home. Parkinsonian tremor (CMS/HCC V24, CMS/HCC V28) 1 10/24/2024 Assessment & Plan (08/24/2025 3:13 PM EST): Therapy: please assess and evaluate for Weighted spoon, fork, knife due to severity of hand tremors. Tinnitus, bilateral 03/25/2025 Assessment & Plan (03/26/2025 3:00 PM EDT): Chronic condition; stable. Continue to monitor. Allergic rhinitis 11/17/2024 Assessment & Plan (03/26/2025 [...] mild (CMS/HCC V24) 11/17/2024 Assessment & Plan (08/24/2025 3:10 PM EST): Currently on a low dose of escitalopram 5mg. Consider if needed in the future, for worsening depression and anxiety: Stop escitalopram. Start fluvoxamine 25mg. Increase to 50mg after 28 day cycle. Assessment & Plan (03/26/2025 3:14 PM EDT): Chronic condition; stable. PHQ-9 score of 3. Continue current medication. Monitor. Anxiety 11/17/2024 Assessment & Plan (03/26/2025 3:14 PM EDT): Chronic condition; stable. Continue current medication. Edentulous 11/17/2024 Overview (11/17/2024): Edentulous, Partial Assessment & Plan (08/24/2025 3:10 PM EST): [facility]: please check on pt's dentures, which pt has been waiting on for about 3 months. Assessment & Plan (03/26/2025 3:06 PM EDT): Chronic condition; stable. Still has some teeth. Complaining of pain in right lower aspect. Refer to dentist. Dry mouth 11/17/2024 Assessment & Plan (03/26/2025 3:06 PM EDT): Chronic condition; stable. Continue to monitor and treat as needed. Unsteady gait 11/17/2024 Assessment & Plan (08/24/2025 3:10 PM EST): Due to autonomic dysfunction of PD-son understands this. SDR: from pt's son: Patient needs assistance with laundry. He has to go down stairs to the basement. Balance problems make this dangerous. Son says: maybe a personal injury attorney would be helpful. Assessment & Plan (03/26/2025 3:14 PM EDT): [...] monitor. Orthostatic hypotension due to Parkinson disease (CMS/HCC V24, CMS/HCC V28) 11/17/2024 Assessment & Plan (08/24/2025 3:10 PM EST): Per neurology, beta amita can be stopped. Calling neurology office to see if losartan 25mg would be acceptable, given his high SBPs. Less chance of syncope than betablocker. Will await Dr Jones's recommendations (left voicemail with my secure voicemail number). Assessment & Plan (07/21/2025 3:08 PM EDT): [...] EDT): Chronic condition; continue to follow-up with biological inspector as directed. Cataract of left eye 11/17/2024 Assessment & Plan (03/26/2025 3:00 PM EDT): Chronic condition; stable. Continue to follow-up with biological inspector as indicated. Assessment & Plan (01/08/2025 6:04 PM EDT): PAR is scheduled for left cataract surgery on 01/17/25. No direct contraindication to surgery expect that blood pressure is not within acceptable range. Will have PAR return in 1 week for BP recheck. Reinforced importance of taking BP meds every morning. Resolved Problems Problem Noted Date Diagnosed Date Resolved Date Other specified disorders of bone density and structure, multiple sites 11/17/2024 09/05/2025 Overview (11/17/2024): DEXA: Z13.820, M85.89 Assessment & Plan (03/26/2025 3:08 PM EDT): Chronic condition; stable. Continue to monitor vitamin D levels to maintain vitamin D level above 30. Check vitamin D level yearly. 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 (CMS/HCC V24, CMS/HCC V28) (Primary Dx); Transient alteration of awareness; Primary hypertension; Orthostatic hypotension due to Parkinson disease (CMS/HCC V24, CMS/HCC V28); Acute cystitis without hematuria 09/05/2025 8:00 AM EST P[facility] Home Care / [facility] Home Visit [facility] [address] [place] [phone] Melissa Raza 09/04/2025 12:30 PM EST [facility] Home [facility] / PACE Home Visit [facility] [address] [place] [phone] [facility] Lata 09/02/2025 4:30 PM EST P[facility] Home Care / PACE Home Visit [facility] [address] [place] [phone] [facility] 09/02/2025 12:30 PM EST PACE Home Care / PACE Home Visit [facility] [address] [place] [phone] Liliana Lata 09/02/2025 12:00 PM EST Evaluation [facility] [address] [place] [phone] Fede Rock PT 09/02/2025 8:30 AM EST P[facility] Home Care / PACE Home Visit [facility] [address] [place] [phone] Liliana Lata 08/31/2025 8:30 AM EST [facility]ACE Home Care / P[facility] Home Visit [facility] [address] [place] [phone] Lata Ford 08/31/2025 Telephone [facility] [address] [place] [address] Fede Rock PT 08/30/2025 12:00 PM EST [facility] Home [facility] / [facility] [address] [place] [phone] Bill Lei 08/30/2025 9:00 AM EST [facility] / [facility] [address] [place] [phone] Lata Ford 08/30/2025 Clinical Support [facility] [address] [place] [address] Federica Quintana LPN 08/29/2025 12:30 PM EST [facility] Home [facility] / [facility] [address] [place] [phone] Melissa Raza 08/29/2025 8:30 AM EST [facility] Home [facility] / [facility] [address] [place] [phone] Melissa Raza 08/28/2025 12:30 PM EST [facility] Home [facility] / [facility] Home [facility] [address] [place] [phone] Jesse Alfred 08/26/2025 12:00 PM EST [facility] / [facility] [address] [place] [phone] Jesse Alfred 08/26/2025 8:30 AM EST [facility] Home [facility] / [facility] [address] [place] [phone] aLta Ford 08/24/2025 1:00 PM EST [facility] [address] [place] [phone] Ilsa Frias MD Orthostatic hypotension due to Parkinson disease ([facility] V24, [facility] V28) (Primary Dx); Unsteady gait; Multiple falls; Vertigo; History of cochlear implant; Depression, major, recurrent, mild ([facility] V24); Hallucinations; Postural dizziness with presyncope; Edentulous; Parkinsonian tremor ([facility] V24, [facility] V28) 08/18/2025 12:00 PM EST [facility] [address] [place] [phone] Antonio Andrade, OT Orthostatic hypotension due to Parkinson disease ([facility] V24, [facility] V28) (Primary Dx) 08/18/2025 [facility] Fall [facility] [address] [place] [phone] Antonio Andrade, OT 08/18/2025 [facility] Fall [facility] [address] [place] [phone] Antonio Andrade, OT 08/14/2025 5:30 PM EST [facility] Home [facility] / [facility] Home [facility] [address] [place] [phone] Brigida Hendricks 08/14/2025 12:30 PM EST [facility] Home [facility] / [facility] Home [facility] [address] [place] [phone] Brigida Hendricks 08/14/2025 8:30 AM EST [facility] Home Care / [facility] Home [facility] [address] [place] [phone] Brigida Hendricks 08/13/2025 9:00 AM EST [facility] Home [facility] / [facility] Home [facility] [address] [place] [phone] Brigida Hendricks 08/11/2025 1:30 PM EST Treatment [facility] [address] [place] [phone] Anastasia Barnes COTA 08/08/2025 1:00 PM EST Treatment [facility] [address] [place] [phone] Anastasia Barnes COTA 08/04/2025 2:00 PM EDT Treatment [facility] [address] [place] [phone] Marlene Martinez, CMV DRIVER 08/04/2025 1:00 PM EDT Treatment [facility] [address] [place] [phone] Anastasia Barnes COTA 08/03/2025 12:30 PM EDT PACE Home [facility] / [facility] Home Visit [facility] [address] [place] [phone] NurseKathy 08/03/2025 10:00 AM EDT Clinical Support [facility] [address] [place] [phone] Kirsten Umanzor, GRADY 08/02/2025 1:00 PM EDT Treatment [facility] [address] [place] [phone] Anastasia Barnes COTA 08/02/2025 12:30 PM EDT PACE Home Care / P[facility] Home Visit [facility] [address] [place] [phone] Lata Ford 08/02/2025 8:00 AM EDT PACE Home Care / [facility] Home Visit [facility] [address] [place] [phone] Tiana Sibley 08/01/2025 Telephone [facility] [address] [place] [phone] Marlene Martinez, CMV DRIVER 07/31/2025 5:30 PM EDT PACE Home Care / PACE Home Visit [facility] [address] [place] [phone] Brigida Hendricks 07/31/2025 12:30 PM EDT PACE Home Care / P[facility] Home Visit [facility] [address] [place] [phone] Brigida Hendricks 07/31/2025 8:30 AM EDT P[facility] Home Care / [facility] Home Visit [facility] [address] [place] [phone] Brigida Hendricks 07/30/2025 9:00 AM EDT PACE Home Care / P[facility] Home Visit [facility] [address] [place] [phone] Brigida Hendricks 07/29/2025 2:00 PM EDT Treatment [facility] [address] [place] [phone] Marlene Martinez, CMV DRIVER 07/28/2025 1:00 PM EDT Treatment [facility] [address] [place] [phone] Anastasia Barnes COTA 07/27/2025 2:00 PM EDT Treatment [facility] [address] [place] [phone] Marlene Martinez, CMV DRIVER 07/27/2025 11:00 AM EDT Clinical Support [facility] [address] [place] [phone] Kirsten Umanzor, GRADY 07/26/2025 12:00 PM EDT PACE Home Care / PACE Home Visit [facility] [address] [place] [phone] Tiana Sibley 07/26/2025 9:00 AM EDT [facility]ACE External Visit [facility] [address] [place] [phone] 07/26/2025 7:30 AM EDT PACE Home Care / PACE Home Visit [facility] [address] [place] [phone] Tiana Sibley 07/22/2025 2:00 PM EDT Treatment [facility] [address] [place] [phone] Marlene Martinez, CMV DRIVER 07/21/2025 11:30 AM EDT Treatment [facility] [address] [place] [phone] Anastasia Barnes COTA 07/20/2025 1:00 PM EDT Office [facility] [address] [place] [phone] Reyna Zuniga, GIOVANNA Orthostatic hypotension due to [...] [facility] [address] [place] [phone] Brigida Hendricks 07/20/2025 Telephone [facility] [address] [place] [phone] Anastasia Barnes COTA 07/19/2025 2:00 PM EDT Treatment [facility] [address] [place] [phone] Marlene Martinez, CMV DRIVER 07/19/2025 8:00 AM EDT P[facility] Home Care / [facility] Home Visit [facility] [address] [place] [phone] Tiana Sibley 07/17/2025 5:00 PM EDT P[facility] Home [facility] / [facility] Home Visit [facility] [address] [place] [phone] Brigida Hendricks 07/17/2025 8:30 AM EDT P[facility] Home [facility] / P[facility] Home Visit [facility] [address] [place] [phone] Brigida Hendricks 07/15/2025 2:00 PM EDT Treatment [facility] [address] [place] [phone] Marlene Martinez, CMV DRIVER 07/14/2025 11:00 AM EDT Treatment [facility] [address] [place] [phone] Cassie Ramires, PT 07/14/2025 10:45 AM EDT Treatment [facility] [address] [place] [phone] Antonio Andrade, OT 07/14/2025 8:00 AM EDT P[facility] Home [facility] / [facility] Home Visit [facility] [address] [place] [phone] Tiana Sibley 06/22/2025 PACE Admissions [facility] [address] [place] [phone] Liberty Burns, RN 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, with psychotic disturbance ([facility] V24, CMS/[facility] V28) (Primary Dx); Orthostatic hypotension; Pure hypercholesterolemia 06/17/2025 [facility] [address] [place] [phone] Liberty Burns, RN 06/15/2025 [facility] [place] [facility] [address] [place] [phone] Liberty Burns, continuous process tanner rotary drum kidney injury (CMS/[facility] V24) (Primary Dx); Hallucinations; Delirium; Dementia due to Parkinson's disease, with agitation, unspecified dementia severity ([facility] V24, [facility] V28) 06/14/2025 11:00 AM EDT Clinical Support [address] [phone] Kirsten Umanzor RN from Last 3 Months Immunizations Immunization Administration [...] insertion of intraocular lens, right Parkinson disease ([facility] V24, [facility] V28) Hypertension Family History Medical History Relation [...] (130 lb) 09/05/2025 2:19 PM EST Height 167.6 cm (5' 6 ) 03/30/2025 3:00 PM EDT Body Mass Index 20.98 03/30/2025 3:00 PM EDT Plan of Treatment Upcoming Encounters Date Type Department Care Team (Late st Contact Info) Description 09/06/2025 Clinical Support [facility] [address] [place] [address] Federica Quintana LPN 09/06/2025 8:00 AM EST [facility] Home Care / [facility] Home Visit [facility] [address] [place] [phone] Tiana Sibley 09/06/2025 12:15 PM EST Treatment [facility] [address] [place] [phone] Antonio Andrade OT 09/06/2025 5:30 PM EST [facility] Home [facility] / [facility] Home Visit [facility] [address] [place] [phone] Daksha Yates 09/07/2025 8:30 AM EST [facility] Home Care / [facility] Home Visit [facility] [address] [place] [phone] Melissa Raza 09/07/2025 12:30 PM EST [facility] Home [facility] / [facility] Home Visit [facility] [address] [place] [phone] Melissa Raza 09/07/2025 5:30 PM EST [facility] Home [facility] / [facility] Home [facility] [address] [place] [phone] Daksha Yates 09/08/2025 8:30 AM EST [facility] Home Care / [facility] Home Visit [facility] [address] [place] [phone] Tiana Sibley 09/08/2025 12:30 PM EST PACE Home Care / [facility] Home Visit [facility] [address] [place] [phone] Daksha Yates 09/08/2025 5:30 PM EST [facility] Home [facility] / [facility] [address] [place] [phone] Daksha Yates 09/09/2025 8:30 AM EST [facility] Home [facility] / [facility] [address] [place] [phone] Tiana Sibley 09/09/2025 12:30 PM EST [facility] Home [facility] / [facility] [address] [place] [phone] Daksha Yates 09/09/2025 5:30 PM EST [facility] Home [facility] / [facility] [address] [place] [phone] Tiana Sibley 09/10/2025 9:00 AM EST [facility] Home [facility] / [facility] [address] [place] [phone] Tiana Sibley 09/10/2025 12:00 PM EST [facility] Home [facility] / [facility] [address] [place] [phone] Brigida Hendricks 09/10/2025 5:00 PM EST [facility] Home [facility] / [facility] [address] [place] [phone] Tiana Sibley 09/11/2025 7:30 AM EST [facility] Home [facility] / [facility] [address] [place] [phone] Brigida Hendricks 09/11/2025 12:30 PM EST [facility] Home [facility] / [facility] [address] [place] [phone] Brigida Hendricks 09/11/2025 5:30 PM EST PACE Home Care / [facility] Home [facility] [address] [place] [phone] Brigida Hendricks 09/12/2025 8:00 AM EST [facility] Home Care / [facility] Home Visit [facility] [address] [place] [phone] Melissa Raza 09/12/2025 12:30 PM EST [facility] Home Care / [facility] Home Visit [facility] [address] [place] [phone] Melissa Raza 09/12/2025 5:30 PM EST [facility] Home Care / [facility] Home [facility] [address] [place] [phone] Daksha Yates 09/13/2025 Clinical Support [facility] [address] [place] [address] Federica Quintana LPN 09/13/2025 8:00 AM EST PACE Home Care / [facility] Home Visit [facility] [address] [place] [phone] Tiana Sibley 09/13/2025 12:30 PM EST PACE Home Care / [facility] Home Visit [facility] [address] [place] [phone] Lata Ford 09/13/2025 5:30 PM EST [facility] Home [facility] / [facility] [address] [place] [phone] Daksha Yates 09/14/2025 8:00 AM EST [facility] Home [facility] / [facility] [address] [place] [phone] Melissa Raza 09/14/2025 12:30 PM EST [facility] Home [facility] / [facility] [address] [place] [phone] Melissa Raza 09/14/2025 5:30 PM EST [facility] Home [facility] / [facility] [address] [place] [phone] Daksha Yates 09/15/2025 8:00 AM EST [facility] Home [facility] / [facility] [address] [place] [address] Tiana Sibley 09/15/2025 12:30 PM EST [facility] Home [facility] / [facility] [address] [place] [address] Daksha Yates 09/15/2025 5:30 PM EST [facility] Home [facility] / [facility] [address] [place] [address] Daksha Yates 09/16/2025 8:30 AM EST [facility] Home [facility] / [facility] [address] [place] [phone] Tiana Sibley 09/16/2025 12:30 PM EST [facility] Home [facility] / [facility] [address] [place] [address] Daksha Yates 09/16/2025 5:30 PM EST [facility] Home [facility] / [facility] [address] [place] [address] Tiana Sibley 09/17/2025 8:30 AM EST [facility] Home [facility] / [facility] [address] [place] [address] Tiana Sibley 09/17/2025 12:30 PM EST [facility] Home Care / [facility] Home Visit [facility] [address] [place] [address] Tiana Sibley 09/17/2025 5:30 PM EST [facility] Home Care / [facility] Home Visit [facility] [address] [place] [address] Tiana Sibley 09/18/2025 8:00 AM EST P[facility] Home Care / [facility] Home [facility] [address] [place] [phone] Daksha Yates 09/18/2025 12:30 PM EST P[facility] Home Care / [facility] Home [facility] [address] [place] [phone] Daksha Yates 09/18/2025 5:30 PM EST PACE Home Care / [facility] [address] [place] [phone] Daksha Yates 09/19/2025 8:00 AM EST [facility] Home [facility] / [facility] [address] [place] [phone] Melissa Raza 09/19/2025 12:30 PM EST [facility] Home [facility] / [facility] [address] [place] [phone] Melissa Raza 09/19/2025 5:30 PM EST [facility] Home Care / [facility] [address] [place] [phone] Daksha Yates 09/20/2025 Clinical Support [facility] [address] [place] [phone] Federica Quintana LPN 09/20/2025 8:00 AM EST [facility] Home [facility] / [facility] [address] [place] [phone] Tiana Sibley 09/20/2025 12:30 PM EST [facility] Home [facility] / [facility] [address] [place] [phone] Lata Ford 09/20/2025 5:30 PM EST [facility] Home [facility] / [facility] [address] [place] [phone] Daskha Yates 09/21/2025 8:00 AM EST [facility] Home [facility] / [facility] [address] [place] [phone] Melissa Raza 09/21/2025 12:30 PM EST [facility] Home [facility] / [facility] [address] [place] [phone] Melissa Raza 09/21/2025 5:30 PM EST [facility] Home [facility] / [facility] [address] [place] [phone] Daksha Yates 09/22/2025 8:00 AM EST [facility] Home [facility] / [facility] [address] [place] [address] Tiana Sibley 09/22/2025 12:30 PM EST [facility] Home [facility] / [facility] [place] [facility] [address] [place] [phone] Daksha Yates 09/22/2025 5:30 PM EST [facility] Home [facility] / [facility] [place] [facility] [address] [place] [phone] Daksha Yates 09/23/2025 8:30 AM EST [facility] Home [facility] / [facility] [place] [facility] [address] [place] [address] Tiana Sibley 09/23/2025 12:30 PM EST [facility] Home [facility] / [facility] [address] [place] [address] Daksha Yates 09/23/2025 5:30 PM EST [facility] Home [facility] / [facility] [address] [place] [phone] Tiana Sibley 09/24/2025 8:30 AM EST [facility] Home [facility] / [facility] [place] [facility] [address] [place] [phone] Tiana Sibley 09/24/2025 12:30 PM EST [facility] Home [facility] / [facility] [place] [facility] [address] [place] [phone] Tiana Sibley 09/24/2025 5:00 PM EST [facility] Home [facility] / [facility] [address] [place] [phone] Tiana Sibley 09/25/2025 8:30 AM EST [facility] Home [facility] / [facility] [address] [place] [phone] Brigida Hendricks 09/25/2025 12:30 PM EST [facility] Home [facility] / [facility] [address] [place] [phone] Brigida Hendricks 09/25/2025 5:30 PM EST [facility] Home [facility] / [facility] [place] [facility] [address] [place] [phone] Brigida Hendricks 09/26/2025 8:00 AM EST [facility] Home [facility] / [facility] [address] [place] [address] Melissa Raza 09/26/2025 12:30 PM EST [facility] Home [facility] / [facility] Visit [facility] [address] [place] [phone] Melissa Raza 09/26/2025 5:30 PM EST [facility] Home [facility] / [facility] [address] [place] [address] Daksha Yates 09/27/2025 Clinical Support [facility] [address] [place] [phone] Federica Quintana LPN 09/27/2025 8:00 AM EST [facility] Home [facility] / [facility] [address] [place] [phone] Tiana Sibley 09/27/2025 12:30 PM EST [facility] Home [facility] / [facility] Visit [facility] [address] [place] [phone] Lata Ford 09/27/2025 5:30 PM EST [facility] Home [facility] / [facility] [address] [place] [phone] Daksha Yates 09/28/2025 8:00 AM EST [facility] Home [facility] / [facility] [address] [place] [phone] Melissa Raza 09/28/2025 12:30 PM EST [facility] Home [facility] / [facility] [address] [place] [phone] Melissa Raza 09/28/2025 5:30 PM EST [facility] Home [facility] / [facility] [address] [place] [phone] Daksha Yates 09/29/2025 8:00 AM EST [facility] Home [facility] / [facility] [place] [facility] [address] [place] [address] Tiana Sibley 09/29/2025 12:30 PM EST [facility] Home [facility] / [facility] [address] [place] [phone] Daksha Yates 09/29/2025 5:30 PM EST [facility] Home [facility] / [facility] [address] [place] [phone] Daksha Yates 09/30/2025 8:30 AM EST [facility] Home [facility] / [facility] [address] [place] [phone] Tiana Sibley 09/30/2025 12:30 PM EST [facility] Home [facility] / [facility] [address] [place] [phone] Daksha Yates 09/30/2025 5:30 PM EST [facility] Home [facility] / [facility] [address] [place] [phone] Tiana Sibley 10/01/2025 8:30 AM EST [facility] Home [facility] / [facility] [address] [place] [phone] Tiana Sibley 10/01/2025 12:30 PM EST [facility] Home [facility] / [facility] [address] [place] [phone] Tiana Sibley 10/01/2025 5:30 PM EST [facility] Home [facility] / [facility] Visit [facility] [address] [place] [phone] Tiana Sibley 10/02/2025 8:00 AM EST [facility] Home Care / [facility] Visit [facility] [address] [place] [phone] Daksha Yates 10/02/2025 12:30 PM EST [facility] Home Care / [facility] Visit [facility] [address] [place] [phone] Daksha Yates 10/02/2025 5:30 PM EST [facility] Home [facility] / [facility] Visit [facility] [address] [place] [phone] Daksha Yates 10/03/2025 8:00 AM EST [facility] Home [facility] / [facility] Visit [facility] [address] [place] [phone] Melissa Raza 10/03/2025 12:30 PM EST [facility] Home [facility] / [facility] [address] [place] [phone] Melissa Raza 10/03/2025 5:30 PM EST [facility] Home [facility] / [facility] [address] [place] [phone] Daksha Yates 10/04/2025 Clinical Support [facility] [address] [place] [phone] Federica Quintana LPN 10/04/2025 8:00 AM EST [facility] Home [facility] / [facility] [address] [place] [phone] Tiana Sibley 10/04/2025 12:30 PM EST [facility] Home [facility] / [facility] [address] [place] [phone] Lata Ford 10/04/2025 5:30 PM EST [facility] Home [facility] / [facility] [address] [place] [address] Daksha Yates 10/05/2025 8:00 AM EST [facility] Home [facility] / [facility] [address] [place] [address] Melissa Raza 10/05/2025 12:30 PM EST [facility] Home [facility] / [facility] [address] [place] [phone] Melissa Raza 10/05/2025 5:30 PM EST [facility] Home [facility] / [facility] [address] [place] [phone] Daksha Yates 10/06/2025 8:00 AM EST [facility] Home [facility] / [facility] [address] [place] [phone] Tiana Sibley 10/06/2025 12:30 PM EST [facility] Home [facility] / [facility] [address] [place] [address] [facility] 10/06/2025 5:30 PM EST [facility] Home [facility] / [facility] [address] [place] [phone] Dansereadaniel Shechristian 10/07/2025 8:30 AM EST [facility] Home [facility] / [facility] [address] [place] [phone] Tiana Sibley 10/07/2025 12:30 PM EST [facility] Home [facility] / [facility] [address] [place] [phone] Daksha Yates 10/07/2025 5:30 PM EST [facility] Home [facility] / [facility] [address] [place] [address] Tiana iSbley 10/08/2025 8:30 AM EST [facility] Home [facility] / [facility] [address] [place] [phone] Tiana Sibley 10/08/2025 12:30 PM EST [facility] Home [facility] / [facility] [address] [place] [phone] Tiana Sibley 10/08/2025 5:00 PM EST [facility] Home [facility] / [facility] [address] [place] [phone] Tiana Sibley 10/09/2025 8:30 AM EST [facility] Home [facility] / [facility] [address] [place] [phone] Brigida Hendricks 10/09/2025 12:30 PM EST [facility] Home [facility] / [facility] [address] [place] [phone] Brigida Hendricks 10/09/2025 5:30 PM EST [facility] Home [facility] / [facility] [address] [place] [phone] Brigida Hendricks 10/10/2025 8:00 AM EST [facility] Home [facility] / [facility] [address] [place] [phone] Melissa Raza 10/10/2025 12:30 PM EST [facility] Home [facility] / [facility] [address] [place] [phone] Melissa Raza 10/10/2025 5:30 PM EST [facility] Home [facility] / [facility] [address] [place] [phone] Daksha Yates 10/11/2025 8:00 AM EST [facility] Home [facility] / [facility] [address] [place] [address] Tiana Sibley 10/11/2025 12:30 PM EST [facility] Home [facility] / [facility] [address] [place] [phone] Lata Ford 10/11/2025 5:30 PM EST [facility] Home [facility] / [facility] [address] [place] [phone] Daksha Yates 10/12/2025 8:00 AM EST [facility] Home [facility] / [facility] [address] [place] [phone] Melissa Raza 10/12/2025 12:30 PM EST [facility] Home [facility] / [facility] [address] [place] [phone] Melissa Raza 10/12/2025 5:30 PM EST [facility] Home [facility] / [facility] [address] [place] [address] Daksha Yates 10/13/2025 8:00 AM EST [facility] Home [facility] / [facility] [address] [place] [phone] Tiana Sibley 10/13/2025 12:30 PM EST [facility] Home [facility] / [facility] [address] [place] [phone] Daksha Yates 10/13/2025 5:30 PM EST [facility] Home [facility] / [facility] [address] [place] [phone] Trudy, Daksha 10/14/2025 8:30 AM EST [facility] Home [facility] / [facility] [address] [place] [phone] Tiana Sibley 10/14/2025 12:30 PM EST [facility] Home [facility] / [facility] [address] [place] [phone] KeshaDaksha harris 10/14/2025 5:30 PM EST [facility] Home [facility] / [facility] [address] [place] [phone] Tiana Sibley 10/15/2025 8:30 AM EST [facility] Home [facility] / [facility] [address] [place] [phone] Tiana Sibley 10/15/2025 12:30 PM EST [facility] Home [facility] / [facility] [address] [place] [phone] Tiana Sibley 10/15/2025 5:30 PM EST [facility] Home [facility] / [facility] [address] [place] [phone] Tiana Sibley 10/16/2025 8:00 AM EST [facility] Home [facility] / [facility] [address] [place] [address] Daksha Yates 10/16/2025 12:30 PM EST [facility] Home [facility] / [facility] [address] [place] [address] Daksha Yates 10/16/2025 5:30 PM EST [facility] Home [facility] / [facility] [address] [place] [address] Daksha Yates 10/17/2025 8:00 AM EST [facility] Home [facility] / [facility] [address] [place] [phone] Melissa Raza 10/17/2025 12:30 PM EST [facility] Home [facility] / [facility] [address] [place] [phone] Melissa Raza 10/17/2025 5:30 PM EST [facility] Home [facility] / [facility] [address] [place] [phone] Daksha Yates 10/18/2025 8:00 AM EST [facility] Home [facility] / [facility] [address] [place] [phone] Tiana Sibley 10/18/2025 12:30 PM EST [facility] Home [facility] / [facility] [address] [place] [phone] Lata Ford 10/18/2025 5:30 PM EST [facility] Home [facility] / [facility] [address] [place] [phone] Daksha Yates 10/19/2025 8:00 AM EST [facility] Home [facility] / [facility] [address] [place] [address] Melissa Raza 10/19/2025 12:30 PM EST [facility] Home [facility] / [facility] [address] [place] [address] Melissa Raza 10/19/2025 5:30 PM EST [facility] Home [facility] / [facility] [address] [place] [phone] Daksha Yates 10/20/2025 8:00 AM EST P[facility] Home Care / [facility] [address] [place] [phone] Tiana Sibley 10/20/2025 12:30 PM EST [facility] Home [facility] / [facility] [address] [place] [phone] Daksha Yates 10/20/2025 5:30 PM EST [facility] Home [facility] / [facility] [address] [place] [phone] Daksha Yates 10/21/2025 8:30 AM EST [facility] Home [facility] / [facility] [address] [place] [phone] Tiana Sibley 10/21/2025 12:30 PM EST [facility] Home [facility] / [facility] [address] [place] [phone] Daksha Yates 10/21/2025 5:30 PM EST [facility] Home [facility] / [facility] [address] [place] [phone] Tiana Sibley 10/22/2025 8:30 AM EST [facility] Home [facility] / [facility] [address] [place] [phone] Tiana Sibley 10/22/2025 12:30 PM EST [facility] Home [facility] / [facility] [address] [place] [phone] Tiana Sibley 10/22/2025 5:00 PM EST [facility] Home [facility] / [facility] [address] [place] [phone] Tiana Sibley 10/23/2025 8:30 AM EST [facility] Home [facility] / [facility] [address] [place] [phone] Brigida Hendricks 10/23/2025 12:30 PM EST [facility] Home [facility] / [facility] [address] [place] [phone] Brigida Hendricks 10/23/2025 5:30 PM EST [facility] Home [facility] / [facility] [address] [place] [phone] Brigida Hendricks 10/24/2025 8:00 AM EST [facility] Home [facility] / [facility] [address] [place] [phone] Melissa Raza 10/24/2025 12:30 PM EST [facility] Home [facility] / [facility] [address] [place] [phone] Melissa Raza 10/24/2025 5:30 PM EST [facility] Home [facility] / [facility] [address] [place] [phone] Daksha Yates 10/25/2025 8:00 AM EST [facility] Home [facility] / [facility] [address] [place] [phone] Tiana Sibley 10/25/2025 12:30 PM EST [facility] Home [facility] / [facility] [address] [place] [phone] Lata Ford 10/25/2025 5:30 PM EST [facility] Home [facility] / [facility] [address] [place] [phone] Daksha Yates 10/26/2025 8:00 AM EST [facility] Home [facility] / [facility] [address] [place] [phone] Melissa Raza 10/26/2025 12:30 PM EST [facility] Home [facility] / [facility] [address] [place] [phone] Melissa Raza 10/26/2025 5:30 PM EST [facility] Home [facility] / [facility] [address] [place] [phone] Daksha Yates 10/27/2025 8:00 AM EST [facility] Home [facility] / [facility] [address] [place] [phone] Tiana Sibley 10/27/2025 12:30 PM EST [facility] Home [facility] / [facility] [address] [place] [phone] Daksha Yates 10/27/2025 5:30 PM EST [facility] Home [facility] / [facility] [address] [place] [phone] Daksha Yates 10/28/2025 8:30 AM EST [facility] Home [facility] / [facility] [address] [place] [phone] Tiana Sibley 10/28/2025 12:30 PM EST [facility] Home [facility] / [facility] [address] [place] [phone] [facility] 10/28/2025 5:30 PM EST [facility] Home [facility] / [facility] [address] [place] [phone] Tiana Sibley 10/29/2025 8:30 AM EST [facility] Home [facility] / [facility] [address] [place] [phone] Tiana Sibley 10/29/2025 12:30 PM EST [facility] Home [facility] / [facility] [address] [place] [phone] Tiana Sibley 10/29/2025 5:30 PM EST [facility] Home [facility] / [facility] [address] [place] [phone] Tiana Sibley 10/30/2025 8:00 AM EST [facility] Home [facility] / [facility] [address] [place] [phone] [facility]ud[facility] 10/30/2025 12:30 PM EST [facility] Home [facility] / [facility] [address] [place] [phone] Danskimberly [facility] 10/30/2025 5:30 PM EST [facility] Home [facility] / [facility] [address] [place] [phone] Daksha Yates 10/31/2025 8:00 AM EST [facility] Home [facility] / [facility] [address] [place] [phone] Melissa Raza 10/31/2025 12:30 PM EST [facility] Home [facility] / [facility] [address] [place] [phone] Melissa Raza 10/31/2025 5:30 PM EST [facility] Home [facility] / [facility] [address] [place] [phone] Daksha Yates 11/01/2025 8:00 AM EST [facility] Home [facility] / [facility] [address] [place] [phone] Tiana Sibley 11/01/2025 12:30 PM EST [facility] Home [facility] / [facility] [address] [place] [phone] Lata Ford 11/01/2025 5:30 PM EST [facility] Home [facility] / [facility] [address] [place] [phone] Daksha Yates 11/02/2025 8:00 AM EST [facility] Home [facility] / [facility] [address] [place] [phone] Melissa Raza 11/02/2025 12:30 PM EST [facility] Home [facility] / [facility] [address] [place] [phone] Melissa Raza 11/02/2025 5:30 PM EST [facility] Home [facility] / [facility] [address] [place] [phone] Keshakimberly Shilpichristian 11/03/2025 8:00 AM EST [facility] Home [facility] / [facility] [address] [place] [address] Tiana Sibley 11/03/2025 12:30 PM EST [facility] Home [facility] / [facility] [address] [place] [phone] Keshakimberly Shilpichristian 11/03/2025 5:30 PM EST [facility] Home [facility] / [facility] [address] [place] [phone] KeshaDaksha harris 11/04/2025 8:30 AM EST [facility] Home [facility] / [facility] [address] [place] [phone] Tiana Sibley 11/04/2025 12:30 PM EST [facility] Home [facility] / [facility] [address] [place] [phone] Daksha Yates 11/04/2025 5:30 PM EST [facility] Home [facility] / [facility] [address] [place] [phone] Tiana Sibley Health Maintenance Due Date Last Done Comments [...] (#1) 2025 Hypertension/CHF/CAD Annual BMP Blood Test 09/05/2026 09/05/2025, 09/27/2024 Cholesterol Screening (Lipid Panel) 10/17/2028 10/17/2023 [...] Procedure Name Priority Date/Time Associated Diagnosis Comments URINALYSIS WITH REFLEX MICROSCOPIC AND CULTURE Routine 09/05/2025 2:31 PM EST Unsteady gait Hallucinations CBC WITH AUTO DIFFERENTIAL Routine 09/05/2025 12:44 PM EST Unsteady gait Hallucinations CBC AND DIFFERENTIAL Routine 09/05/2025 12:44 PM EST Unsteady gait Hallucinations COMPREHENSIVE METABOLIC PANEL Routine 09/05/2025 12:44 PM EST Unsteady gait Hallucinations LIPID PANEL Routine 10/17/2023 from Last 3 Months or Most Recently Relevant to Health Maintenance Results * (ABNORMAL) Urinalysis with reflex microscopic and culture (09/05/2025 2:31 PM EST) Specific [place] Urine 1.012 1.003 - 1.030 LAB URINALYSIS - AUTOMATED METHOD 09/05/2025 6:16 PM [facility] pH, Urine 6.5 5.0 - 8.0 pH LAB URINALYSIS - AUTOMATED METHOD 09/05/2025 6:16 PM [facility] Leukocytes, Urine Large(A) Negative LAB URINALYSIS - AUTOMATED METHOD 09/05/2025 6:16 PM [facility] Nitrite, Urine Negative Negative LAB URINALYSIS - AUTOMATED METHOD 09/05/2025 6:16 PM [facility] Protein, Urine 30(A) <=Trace mg/dL LAB URINALYSIS - AUTOMATED METHOD 09/05/2025 6:16 PM [facility] Glucose, Urine Negative Negative mg/dL LAB URINALYSIS - AUTOMATED METHOD 09/05/2025 6:16 PM [facility] Ketones, Urine Negative Negative mg/dL LAB URINALYSIS - AUTOMATED METHOD 09/05/2025 6:16 PM [facility] Urobilinogen , Urine 1.0 0.2 - 1.0 mg/dL LAB URINALYSIS - AUTOMATED METHOD 09/05/2025 6:16 PM [facility] Bilirubin, Urine Negative Negative LAB URINALYSIS - AUTOMATED METHOD 09/05/2025 6:16 PM [facility] Blood, Urine Moderate(A) Negative LAB URINALYSIS - AUTOMATED METHOD 09/05/2025 6:16 PM [facility] RBC, Urine 6.0(H) 0 - 4 /HPF 09/05/2025 6:16 PM [facility] WBC, Urine >100(H) 0 - 4 /HPF 09/05/2025 6:16 PM [facility] Squamous Epithelial, Urine 10 0 - 60 /LPF 09/05/2025 6:16 PM [facility] Bacteria, Urine Few(A) Negative /HPF 09/05/2025 6:16 PM EST [facility] Hyaline Casts, Urine 3.0 0 - 3 /LPF 09/05/2025 6:16 PM [facility] Urine Urine specimen obtained by clean catch procedure / Unknown Non-blood Collection / Unknown 09/05/2025 2:31 PM EST 09/05/2025 2:31 PM EST us Reyna Zuniga LASTING MACHINE OPERATOR LAB URINE ORDERABLES Final Re sult [facility] [address] [place] [address], * (ABNORMAL) CBC auto differential (09/05/2025 12:44 PM EST) WBC 10.1 4.8 - 10.8 K/mcL LAB HEMETOLOGY METHOD 09/05/2025 5:57 PM [facility] RBC 4.40(L) 4.50 - 5.50 M/mcL LAB HEMETOLOGY METHOD 09/05/2025 5:57 PM [facility] Hemoglobin 14.0 13.5 - 17.5 g/dL LAB HEMETOLOGY METHOD 09/05/2025 5:57 PM [facility] Hematocrit 41.8(L) 42.0 - 54.0 % LAB HEMETOLOGY METHOD 09/05/2025 5:57 PM [facility] MCV 95.7 79.0 - 98.0 FL LAB HEMETOLOGY METHOD 09/05/2025 5:57 PM [facility] MCH 32.0 27.0 - 32.0 pcg LAB HEMETOLOGY METHOD 09/05/2025 5:57 PM [facility] MCHC 33.5 32.0 - 37.0 g/dL LAB HEMETOLOGY METHOD 09/05/2025 5:57 PM [facility] RDW 12.6 11.0 - 15.0 % LAB HEMETOLOGY METHOD 09/05/2025 5:57 PM [facility] Platelets 211 130 - 400 K/mcL LAB HEMETOLOGY METHOD 09/05/2025 5:57 PM [facility] MPV 11.8(H) 7.0 - 11.0 FL LAB HEMETOLOGY METHOD 09/05/2025 5:57 PM [facility] NRBC 0.0 <1.0 % LAB HEMETOLOGY METHOD 09/05/2025 5:57 PM [facility] NRBC Absolute 0.00 <0.10 K/mcL LAB HEMETOLOGY METHOD 09/05/2025 5:57 PM [facility] Neutrophils Relative 75.4 % LAB HEMETOLOGY METHOD 09/05/2025 5:57 PM [facility] Lymphocytes Relative 12.2 % LAB HEMETOLOGY METHOD 09/05/2025 5:57 PM [facility] Monocytes Relative 11.6 % LAB HEMETOLOGY METHOD 09/05/2025 5:57 PM [facility] Eosinophils Relative 0.1 % LAB HEMETOLOGY METHOD 09/05/2025 5:57 PM [facility] Basophils Relative 0.3 % LAB HEMETOLOGY METHOD 09/05/2025 5:57 PM [facility] Immature Granulocytes Relative 0.4 % LAB HEMETOLOGY METHOD 09/05/2025 5:57 PM [facility] Neutrophils Absolute 7.59(H) 1.50 - 7.00 K/mcL LAB HEMETOLOGY METHOD 09/05/2025 5:57 PM [facility] Lymphocytes Absolute 1.23 1.00 - 5.00 K/mcL LAB HEMETOLOGY METHOD 09/05/2025 5:57 PM [facility] Monocytes Absolute 1.17(H) 0.20 - 1.00 K/mcL LAB HEMETOLOGY METHOD 09/05/2025 5:57 PM [facility] Eosinophils Absolute 0.01 0.00 - 0.50 K/[facility] LAB HEMETOLOGY METHOD 09/05/2025 5:57 PM [facility] Basophils Absolute 0.03 0.00 - 0.20 K/mcL LAB HEMETOLOGY METHOD 09/05/2025 5:57 PM [facility] Immature Granulocytes Absolute 0.04(H) 0.00 - 0.03 K/mcL LAB HEMETOLOGY METHOD 09/05/2025 5:57 PM [facility] Blood Venous blood specimen / Unknown Venipuncture / Unknown 09/05/2025 12:44 PM EST 09/05/2025 12:44 PM EST Reyna Zuniga LASTING MACHINE OPERATOR LAB BLOOD ORDERABLES Final Re sult [facility] [address] [place] [address], * (ABNORMAL) Comprehensive metabolic panel (09/05/2025 12:44 PM EST) Sodium 134 133 - 145 mmol/L 09/05/2025 6:05 PM [facility] Potassium 4.1 3.5 - 5.5 mmol/L 09/05/2025 6:05 PM [facility] Chloride 97 96 - 110 mmol/L 09/05/2025 6:05 PM [facility] CO2 27 21 - 32 mmol/L 09/05/2025 6:05 PM [facility] Anion Gap 10 3 - 11 09/05/2025 6:05 PM [facility] Glucose 91 70 - 100 mg/dL 09/05/2025 6:05 PM [facility] BUN 31(H) 5 - 25 mg/dL 09/05/2025 6:05 PM [facility] Creatinine 1.27 0.70 - 1.30 mg/dL 09/05/2025 6:05 PM [facility] eGFR 58(L) >=60 mL/min/1. 73m2 09/05/2025 6:05 PM [facility] Comment:Calculation based on the Chronic Kidney Disease Epidemiology Collaboration (CKD-EPI) equation refit without adjustment for race. BUN/Creatinine Ratio 24.4 09/05/2025 6:05 PM [facility] Calcium 8.6 8.5 - 10.5 mg/dL 09/05/2025 6:05 PM [facility] AST (SGOT) 25 10 - 42 unit/L 09/05/2025 6:05 PM [facility] ALT (SGPT) 8(L) 10 - 60 unit/L 09/05/2025 6:05 PM [facility] Alkaline Phosphatase 96 42 - 121 unit/L 09/05/2025 6:05 PM [facility] Total Protein 7.1 6.0 - 8.0 g/dL 09/05/2025 6:05 PM [facility] Albumin 4.1 3.2 - 5.0 g/dL 09/05/2025 6:05 PM [facility] Total Bilirubin 1.4 0.0 - 1.4 mg/dL 09/05/2025 6:05 PM [facility] Blood Venous blood specimen / Unknown Venipuncture / Unknown 09/05/2025 12:44 PM EST 09/05/2025 12:44 PM EST us Reyna Zuniga NP LAB BLOOD ORDERABLES Final Re sult [facility] [address] [place] [address], * (ABNORMAL) Lipid panel (10/17/2023) LDL/HDL Ratio 3 <=5 Triglycerides 79 <=150 mg/dL Cholesterol 110 <=200 mg/dL HDL 37(A) >=40 mg/dL LDL Cholesterol 57 <=100 mg/dL Blood Venous blood specimen / Unknown us Historical Provider LAB BLOOD ORDERABLES Lali l Result from Last 3 Months or Most Recently Relevant to Health Maintenance Insurance [employer] * Guarantor: [facility] Account Type Relation to Patient Date of Phone Billing Address [facility] [address] Advance Directives Documents on File Type Date Recorded Patient Folder Seamer Automatic Expl anation Advance Directives and Living Will [...] currently active code status orders. Care Teams Certified Medical Coding Specialist Relationship Specialty Start Date End Date Reyna Zuniga NP [address] [place] [id number] PCP - General Family Medicine 11/06/24
--- OUTSIDE RECORDS SUMMARY | 2025-09-05 23:49 | XMS_ITS ---
Author Organization [facility] [place] [address] Phone Care Team Providers Care University Librarian Name Role Phone Reyna Zuniga RADIOCOMMUNICATIONS TECHNICIAN Primary Care Provider [phone] [facility] Status:Enrolled (Active) Start date:06/15/2025 Enrollment date:06/15/2025 Related program episode:Program of All-Inclusive Care for the Elderly (Active) Case Team Name Relationship Phone Anne-Marie JOYA(Responsible Staff) Registered Nurse Continued Care and Services Coordination
--- OUTSIDE RECORDS SUMMARY | 2025-09-05 23:49 | XMS_ITS ---
Author Organization [facility] [place] [place] [address] Phone Care Team Providers Care Leather Cleaner Name Role Phone Reyna Zuniga PLANT AND MAINTENANCE TECHNICIAN Primary Care Provider [phone] Program of All-Inclusive Care for the Elderly Status:Enrolled (Active) Start date:10/06/2023 Enrollment date:10/06/2023 Related social drivers of health:Housing Instability, Financial Risk, Transportation, Social Isolation, Food Risk Related service episodes:[facility] (Active) Case Team Name Relationship Phone Juventino Del Angel PLANT AND MAINTENANCE TECHNICIAN Nurse Practitioner [phone] Vy Kapadia RN [employer] Consultant Antonio Andrade OT Occupational Therapist Matt Moreno RN Registered Nurse Anika Abarca RD Dietitijosh Balderas TAKE DOWN INSPECTOR Legal Examiner Elis Paniagua RN [employer] Consultant Stephanie Allen [facility] Legal Examiner Chadwick [place] [facility] Jessica Roman PT Physical Therapist Alvina PARTIDAW Legal Examiner Fede Rock PT Physical Therapist Ilsa Frias MD Primary Care Provider Continued Care and Services Coordination
--- OUTSIDE RECORDS SUMMARY | 2025-09-05 23:50 | XMS_ITS | Encounter Summary ---
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 Primary Care Provider [phone] Encounter Details Date Type Department Care Team (Late st Contact Info) Description 08/31/2025 Telephone [facility] [address] [place] [phone] Fede Rock, PT Social History Tobacco Use Types Packs/Day Years Used Date Smoking Tobacco: Former Cigarettes Smokeless Tobacco: Never Comments:Ex-smoker Sex and Gender Information Value Date Recorded Sex Assigned at Not on file Legal Sex Male 9:32 AM EST Gender Identity Not on file Sexual Orientation Not on file documented as of this encounter Progress Notes * Fede Rock PT - 08/31/2025 11:19 AM EST T.C and message left with Blake to call back and schedule PT evaluation. documented in this encounter Plan of Treatment Upcoming Encounters Date Type Department Care Team (Late st Contact Info) Description 09/06/2025 Clinical Support [facility] [address] [place] [phone] Federica Quintana LPN 09/06/2025 8:00 AM EST [facility] / [facility] [address] [place] [address] Tiana Sibley 09/06/2025 12:15 PM EST Treatment [facility] [address] [place] [address] Antonio Andrade OT 09/06/2025 5:30 PM EST [facility] Home [facility] / [facility] [address] [place] [address] Daksha Yates 09/07/2025 8:30 AM EST [facility] Home [facility] / [facility] [address] [place] [phone] Melissa Raza 09/07/2025 12:30 PM EST [facility] Home [facility] / [facility] [address] [place] [address] Melissa Raza 09/07/2025 5:30 PM EST [facility] Home Care / [facility] [address] [place] [phone] Daksha Yates 09/08/2025 8:30 AM EST P[facility] Home Care / [facility] [address] [place] [phone] Tiana Sibley 09/08/2025 12:30 PM EST [facility] Home [facility] / [facility] [address] [place] [phone] Daksha Yates 09/08/2025 5:30 PM EST [facility] Home [facility] / [facility] [address] [place] [phone] Daksha Yates 09/09/2025 8:30 AM EST [facility] [address] [place] [address] Tiana Sibley 09/09/2025 12:30 PM EST [facility] / [facility] [address] [place] [address] Daksha Yates 09/09/2025 5:30 PM EST [facility] Home [facility] / [facility] [address] [place] [address] Tiana Sibley 09/10/2025 9:00 AM EST [facility] Home [facility] / [facility] [address] [place] [phone] Tiana Sibley 09/10/2025 12:00 PM EST [facility] Home [facility] / [facility] [address] [place] [phone] Brigida Hendricks 09/10/2025 5:00 PM EST [facility] Home [facility] / [facility] [address] [place] [phone] Tiana Sibley 09/11/2025 7:30 AM EST [facility] Home [facility] / [facility] [address] [place] [phone] Brigida Hendricks 09/11/2025 12:30 PM EST [facility] Home [facility] / [facility] [address] [place] [phone] Brigida Hendricks 09/11/2025 5:30 PM EST [facility] Home [facility] / [facility] [address] [place] [phone] Brigida Hendricks 09/12/2025 8:00 AM EST [facility] Home [facility] / [facility] [address] [place] [address] Melissa Raza 09/12/2025 12:30 PM EST [facility] Home [facility] / [facility] [address] [place] [address] Melissa Raza 09/12/2025 5:30 PM EST [facility] Home [facility] / [facility] [address] [place] [address] Daksha Yates 09/13/2025 Clinical Support [facility] [address] [place] [address] Federica Quintana LPN 09/13/2025 8:00 AM EST [facility] Home [facility] / [facility] [address] [place] [address] Tiana Sibley 09/13/2025 12:30 PM EST [facility] Home [facility] / [facility] Visit [facility] [address] [place] [phone] Lata Ford 09/13/2025 5:30 PM EST [facility] Home [facility] / [facility] Visit [facility] [address] [place] [phone] Daksha Yates 09/14/2025 8:00 AM EST [facility] Home Care / [facility] [address] [place] [phone] Melissa Raza 09/14/2025 12:30 PM EST P[facility] Home Care / [facility] Visit [facility] [address] [place] [phone] Melissa Raza 09/14/2025 5:30 PM EST [facility] Home [facility] / [facility] [address] [place] [address] Daksha Yates 09/15/2025 8:00 AM EST [facility] Home [facility] / [facility] [address] [place] [address] Tiana Sibley 09/15/2025 12:30 PM EST [facility] Home [facility] / [facility] [address] [place] [address] Daksha Yates 09/15/2025 5:30 PM EST [facility] Home [facility] / [facility] [address] [place] [address] Daksha Yates 09/16/2025 8:30 AM EST [facility] / [facility] [address] [place] [address] Tiana Sibley 09/16/2025 12:30 PM EST [facility] Home [facility] / [facility] [address] [place] [phone] Daksha Yates 09/16/2025 5:30 PM EST [facility] Home [facility] / [facility] [address] [place] [address] Tiana Sibley 09/17/2025 8:30 AM EST [facility] Home [facility] / [facility] [address] [place] [address] Tiana Sibley 09/17/2025 12:30 PM EST [facility] / [facility] [address] [place] [address] Tiana Sibley 09/17/2025 5:30 PM EST [facility] Home [facility] / [facility] [address] [place] [address] Tiana Sibley 09/18/2025 8:00 AM EST [facility] Home [facility] / [facility] [address] [place] [phone] Daksha Yates 09/18/2025 12:30 PM EST [facility] Home [facility] / [facility] Visit [facility] [address] [place] [phone] Daksha Yates 09/18/2025 5:30 PM EST [facility] Home Care / [facility] Visit [facility] [address] [place] [phone] Daksha Yates 09/19/2025 8:00 AM EST [facility] Home Care / [facility] Visit [facility] [address] [place] [phone] Melissa Raza 09/19/2025 12:30 PM EST [facility] Home Care / [facility] Visit [facility] [address] [place] [phone] Melissa Raza 09/19/2025 5:30 PM EST P[facility] Home Care / [facility] Visit [facility] [address] [place] [phone] Daksha Yates 09/20/2025 Clinical Support [facility] [address] [place] [phone] Federica Quintana LPN 09/20/2025 8:00 AM EST [facility] Home [facility] / [facility] [address] [place] [phone] Tiana Sibley 09/20/2025 12:30 PM EST [facility] Home [facility] / [facility] [address] [place] [address] Lata Ford 09/20/2025 5:30 PM EST [facility] Home [facility] / [facility] [address] [place] [address] Trudy, Shechristian 09/21/2025 8:00 AM EST [facility] Home [facility] / [facility] [address] [place] [address] Melissa Raza 09/21/2025 12:30 PM EST [facility] Home [facility] / [facility] [address] [place] [address] Melissa Raza 09/21/2025 5:30 PM EST [facility] Home [facility] / [facility] [address] [place] [address] Trudy Shechristian 09/22/2025 8:00 AM EST [facility] Home [facility] / [facility] [address] [place] [phone] Tiana Sibley 09/22/2025 12:30 PM EST P[facility] Home [facility] / [facility] [address] [place] [address] Danskimberly, [facility] 09/22/2025 5:30 PM EST P[facility] Home [facility] / [facility] [address] [place] [phone] Dansereau, Sheana 09/23/2025 8:30 AM EST [facility] Home [facility] / [facility] [address] [place] [address] Tiana Sibley 09/23/2025 12:30 PM EST [facility] Home [facility] / [facility] [address] [place] [phone] Daksha Yates 09/23/2025 5:30 PM EST [facility] Home [facility] / [facility] [address] [place] [phone] Tiana Sibley 09/24/2025 8:30 AM EST [facility] Home [facility] / [facility] [address] [place] [phone] Tiana Sibley 09/24/2025 12:30 PM EST [facility] Home [facility] / [facility] [address] [place] [phone] Tiana Sibley 09/24/2025 5:00 PM EST [facility] Home [facility] / [facility] [address] [place] [phone] Tiana Sibley 09/25/2025 8:30 AM EST [facility] Home [facility] / [facility] [address] [place] [phone] Brigida Hendricks 09/25/2025 12:30 PM EST [facility] Home [facility] / [facility] [address] [place] [phone] Brigida Hendricks 09/25/2025 5:30 PM EST [facility] Home [facility] / [facility] [address] [place] [phone] Brigida Hendricks 09/26/2025 8:00 AM EST [facility] Home [facility] / [facility] [address] [place] [phone] Melissa Raza 09/26/2025 12:30 PM EST [facility] Home [facility] / [facility] [address] [place] [phone] Melissa Raza 09/26/2025 5:30 PM EST P[facility] Home Care / [facility] Visit [facility] [address] [place] [phone] Daksha Yates 09/27/2025 Clinical Support [facility] [address] [place] [phone] Federica Quintana LPN 09/27/2025 8:00 AM EST [facility] Home [facility] / [facility] Visit [facility] [address] [place] [phone] Tiana Sibley 09/27/2025 12:30 PM EST [facility] Home [facility] / [facility] Visit [facility] [address] [place] [phone] Lata Ford 09/27/2025 5:30 PM EST [facility] Home [facility] / [facility] Visit [facility] [address] [place] [phone] Daksha Yates 09/28/2025 8:00 AM EST [facility] Home [facility] / [facility] [address] [place] [phone] Melissa Raza 09/28/2025 12:30 PM EST [facility] Home [facility] / [facility] [address] [place] [phone] Melissa Raza 09/28/2025 5:30 PM EST [facility] Home [facility] / [facility] [address] [place] [phone] Daksha Yates 09/29/2025 8:00 AM EST [facility] Home [facility] / [facility] [address] [place] [address] Tiana Sibley 09/29/2025 12:30 PM EST [facility] Home [facility] / [facility] [address] [place] [address] Daksha Yates 09/29/2025 5:30 PM EST [facility] Home [facility] / [facility] [address] [place] [phone] Daksha Yates 09/30/2025 8:30 AM EST [facility] Home [facility] / [facility] [address] [place] [phone] Tiana Sibley 09/30/2025 12:30 PM EST [facility] Home [facility] / [facility] [address] [place] [phone] Daksha Yates 09/30/2025 5:30 PM EST [facility] Home [facility] / [facility] [address] [place] [phone] Tiana Sibley 10/01/2025 8:30 AM EST [facility] / [facility] [address] [place] [phone] Tiana Sibley 10/01/2025 12:30 PM EST [facility] Home [facility] / [facility] [address] [place] [address] Tiana Sibley 10/01/2025 5:30 PM EST [facility] Home [facility] / [facility] [address] [place] [phone] Tiana Sibley 10/02/2025 8:00 AM EST [facility] Home [facility] / [facility] [address] [place] [address] Daksha Yates 10/02/2025 12:30 PM EST P[facility] Home [facility] / [facility] [address] [place] [phone] Daksha Yates 10/02/2025 5:30 PM EST [facility] Home [facility] / [facility] [address] [place] [phone] [facility] 8:00 AM EST [facility] [address] [place] [phone] Melissa Raza 10/03/2025 12:30 PM EST [facility] Home [facility] / [facility] [address] [place] [phone] Melissa Raza 10/03/2025 5:30 PM EST [facility] Home [facility] / [facility] [address] [place] [phone] [facility] [address] [place] [phone] Federica Quintana LPN 10/04/2025 8:00 AM EST [facility] Home [facility] / [facility] [address] [place] [phone] Tiana Sibley 10/04/2025 12:30 PM EST P[facility] Home [facility] / [facility] [address] [place] [phone] Lata Ford 10/04/2025 5:30 PM EST [facility] Home [facility] / [facility] [address] [place] [address] Daksha Yates 10/05/2025 8:00 AM EST [facility] Home [facility] / [facility] [address] [place] [address] Melissa Raza 10/05/2025 12:30 PM EST [facility] Home [facility] / [facility] [address] [place] [address] Melissa Raza 10/05/2025 5:30 PM EST [facility] Home [facility] / [facility] [address] [place] [phone] Daksha Yates 10/06/2025 8:00 AM EST [facility] Home [facility] / [facility] [address] [place] [phone] Tiana Sibley 10/06/2025 12:30 PM EST [facility] Home [facility] / [facility] [address] [place] [phone] [facility]/06/2025 5:30 PM EST [facility] / [facility] [address] [place] [phone] [facility]kimberly [facility] 10/07/2025 8:30 AM EST [facility] / [facility] [address] [place] [phone] Tiana Sibley 10/07/2025 12:30 PM EST [facility] Home [facility] / [facility] [address] [place] [phone] MeliadanielShilpichristian 10/07/2025 5:30 PM EST [facility] Home [facility] / [facility] [address] [place] [address] Tiana Sibley 10/08/2025 8:30 AM EST [facility] Home [facility] / [facility] [address] [place] [phone] Tiana Sibley 10/08/2025 12:30 PM EST [facility] Home [facility] / [facility] [address] [place] [phone] Tiana Sibley 10/08/2025 5:00 PM EST [facility] Home [facility] / [facility] [address] [place] [phone] Tiana Sibley 10/09/2025 8:30 AM EST [facility] / [facility] [address] [place] [phone] Brigida Hendricks 10/09/2025 12:30 PM EST [facility] / [facility] [address] [place] [phone] Brigida Hendricks 10/09/2025 5:30 PM EST [facility] / [facility] [address] [place] [phone] Brigida Hendricks 10/10/2025 8:00 AM EST [facility] / [facility] [address] [place] [phone] Melissa Raza 10/10/2025 12:30 PM EST [facility] / [facility] [address] [place] [address] [place] [phone] Melissa Raza 10/10/2025 5:30 PM EST [facility] / [facility] [address] [place] [address] Daksha Yates 10/11/2025 8:00 AM EST [facility] / [facility] [address] [place] [address] Tiana Sibley 10/11/2025 12:30 PM EST [facility] Home [facility] / [facility] [address] [place] [address] Lata Ford 10/11/2025 5:30 PM EST [facility] Home [facility] / [facility] [address] [place] [address] Daksha Yates 10/12/2025 8:00 AM EST [facility] / [facility] [address] [place] [address] Melissa Raza 10/12/2025 12:30 PM EST [facility] Home [facility] / [facility] [address] [place] [address] Melissa Raza 10/12/2025 5:30 PM EST [facility] / [facility] [address] [place] [address] Daksha Yates 10/13/2025 8:00 AM EST [facility] / [facility] [address] [place] [address] Tiana Sibley 10/13/2025 12:30 PM EST [facility] / [facility] [address] [place] [address] Daksha Yates 10/13/2025 5:30 PM EST [facility] / [facility] [address] [place] [phone] Daksha aYtes 10/14/2025 8:30 AM EST [facility] / [facility] [address] [place] [phone] Tiana Sibley 10/14/2025 12:30 PM EST [facility] / [facility] [address] [place] [phone] Daksha Yates 10/14/2025 5:30 PM EST [facility] / [facility] [address] [place] [phone] Tiana Sibley 10/15/2025 8:30 AM EST [facility] / [facility] [address] [place] [phone] Tiana Sibley 10/15/2025 12:30 PM EST [facility] / [facility] [address] [place] [phone] Tiana Sibley 10/15/2025 5:30 PM EST [facility] / [facility] [address] [place] [phone] Tiana Sibely 10/16/2025 8:00 AM EST [facility] / [facility] [address] [place] [phone] Daksha Yates 10/16/2025 12:30 PM EST [facility] Home [facility] / [facility] [address] [place] [address] Daksha Yates 10/16/2025 5:30 PM EST [facility] / [facility] [address] [place] [phone] Daksha Yates 10/17/2025 8:00 AM EST [facility] / [facility] [address] [place] [phone] Melissa Raza 10/17/2025 12:30 PM EST [facility] Home [facility] / [facility] [address] [place] [phone] Melissa Raza 10/17/2025 5:30 PM EST [facility] Home [facility] / [facility] [address] [place] [phone] Daksha Yates 10/18/2025 8:00 AM EST [facility] Home [facility] / [facility] [address] [place] [phone] Tiana Sibley 10/18/2025 12:30 PM EST [facility] Home [facility] / [facility] [address] [place] [phone] Lata Ford 10/18/2025 5:30 PM EST [facility] Home [facility] / [facility] [address] [place] [phone] Daksha Yates 10/19/2025 8:00 AM EST [facility] Home [facility] / [facility] [address] [place] [phone] Melissa Raza 10/19/2025 12:30 PM EST [facility] Home [facility] / [facility] [address] [place] [address] Melissa Raza 10/19/2025 5:30 PM EST [facility] Home [facility] / [facility] [address] [place] [address] Daksha Yates 10/20/2025 8:00 AM EST [facility] / [facility] [address] [place] [address] Tiana Sibley 10/20/2025 12:30 PM EST [facility] Home [facility] / [facility] [address] [place] [address] Daksha Yates 10/20/2025 5:30 PM EST [facility] Home [facility] / [facility] [address] [place] [phone] Daksha Yates 10/21/2025 8:30 AM EST [facility] Home [facility] / [facility] [address] [place] [phone] Tiana Sibley 10/21/2025 12:30 PM EST [facility] Home [facility] / [facility] [address] [place] [phone] Daksha Yates 10/21/2025 5:30 PM EST [facility] / [facility] [address] [place] [phone] Tiana Sibley 10/22/2025 8:30 AM EST [facility] Home Care / [facility] [facility] [address] [place] [address] Tiana Sibley 10/22/2025 12:30 PM EST [facility] [address] [place] [address] Tiana Sibley 10/22/2025 5:00 PM EST [facility] / [facility] [address] [place] [phone] Tiana Sibley 10/23/2025 8:30 AM EST [facility] / [facility] [place] [facility] [address] [place] [phone] Brigida Hendricks 10/23/2025 12:30 PM EST [facility] / [facility] [place] [facility] [address] [place] [phone] Brigida Hendricks 10/23/2025 5:30 PM EST [facility] / [facility] [place] [facility] [address] [place] [phone] Brigida Hendricks 10/24/2025 8:00 AM EST [facility] / [facility] [place] [facility] [address] [place] [phone] Melissa Raza 10/24/2025 12:30 PM EST [facility] / [facility] [address] [place] [phone] Melissa Raza 10/24/2025 5:30 PM EST [facility] / [facility] [address] [place] [phone] Daksha Yates 10/25/2025 8:00 AM EST [facility] / [facility] [place] [facility] [address] [place] [phone] Tiana Sibley 10/25/2025 12:30 PM EST [facility] / [facility] [address] [place] [address] Lata Ford 10/25/2025 5:30 PM EST [facility] / [facility] [address] [place] [phone] Daksha Yates 10/26/2025 8:00 AM EST [facility] / [facility] [address] [place] [phone] Melissa Raza 10/26/2025 12:30 PM EST [facility] / [facility] [place] [facility] [place] [facility] [address] [place] [phone] Melissa Raza 10/26/2025 5:30 PM EST [facility] / [facility] [place] [facility] [place] [facility] [address] [place] [phone] Daksha Yates 10/27/2025 8:00 AM EST [facility] / [facility] [place] [facility] [place] [facility] [address] [place] [phone] Tiana Sibley 10/27/2025 12:30 PM EST [facility] [place] [facility] [place] [facility] [address] [place] [phone] [facility]/27/2025 5:30 PM EST [facility] [place] [facility] [address] [place] [phone] Dansereadaniel, Shechristian 10/28/2025 8:30 AM EST [facility] / [facility] [place] [facility] [place] [facility] [address] [place] [phone] Tiana Sibley 10/28/2025 12:30 PM EST [facility] / [facility] [place] [facility] [place] [facility] [address] [place] [address] DansDaksha harris 10/28/2025 5:30 PM EST [facility] / [facility] [address] [place] [address] Tiana Sibley 10/29/2025 8:30 AM EST [facility] / [facility] [place] [facility] [address] [place] [phone] Tiana Sibley 10/29/2025 12:30 PM EST [facility] / [facility] [place] [facility] [place] [facility] [address] [place] [phone] Tiana Sibley 10/29/2025 5:30 PM EST [facility] / [facility] [place] [facility] [place] [facility] [address] [place] [phone] Tiana Sibley 10/30/2025 8:00 AM EST [facility] / [facility] [place] [facility] [place] [facility] [address] [place] [phone] [place], [facility] 10/30/2025 12:30 PM EST [facility] / [facility] [place] [facility] [place] [facility] [address] [place] [phone] Dansereau, [facility] 10/30/2025 5:30 PM EST [facility] / [facility] [place] [facility] [place] [facility] [address] [place] [phone] Dansereau, [facility] 10/31/2025 8:00 AM EST [facility] / [facility] [place] [facility] [place] [facility] [address] [place] [phone] Melissa Raza 10/31/2025 12:30 PM EST [facility] / [facility] [place] [facility] [place] [facility] [address] [place] [phone] Melissa Raza 10/31/2025 5:30 PM EST [facility] / [facility] [place] [facility] [address] [place] [address] Daksha Yates 11/01/2025 8:00 AM EST [facility] / [facility] [address] [place] [phone] Tiana Sibley 11/01/2025 12:30 PM EST [facility] / [facility] [place] [facility] [address] [place] [phone] Lata Ford 11/01/2025 5:30 PM EST [facility] / [facility] [place] [facility] [place] [facility] [address] [place] [phone] Daksha Yates 11/02/2025 8:00 AM EST [facility] / [facility] [place] [facility] [place] [facility] [address] [place] [phone] Melissa Raza 11/02/2025 12:30 PM EST [facility] / [facility] [address] [place] [phone] Melissa Raza 11/02/2025 5:30 PM EST [facility] / [facility] [address] [place] [phone] Daksha Yates 11/03/2025 8:00 AM EST [facility] / [facility] [place] [facility] [address] [place] [phone] Tiana Sibley 11/03/2025 12:30 PM EST [facility] / [facility] [address] [place] [phone] Keshakimberly Shilpichristian 11/03/2025 5:30 PM EST [facility] / [facility] [address] [place] [phone] Trudy Shilpichristian 11/04/2025 8:30 AM EST [facility] / [facility] [address] [place] [phone] Tiana Sibley 11/04/2025 12:30 PM EST [facility] / [facility] [address] [place] [phone] Trudy, Shilpichristian 11/04/2025 5:30 PM EST [facility] / [facility] [address] [place] [phone] Tiana Sibley documented as of this encounter Visit Diagnoses Not on filedocumented in this encounter Additional Health Concerns Assessment Noted Time PHQ-9 Depression Total Score: 3 03/25/20 25 11:12 AM EDT documented as of this encounter Care Teams Logging Crew Foreman Relationship Specialty Start Date End Date Reyna Zuniga NP [address] [place] [phone] PCP - General Family Medicine 11/06/24 documented as of this encounter
--- OUTSIDE RECORDS SUMMARY | 2025-09-05 23:50 | XMS_ITS | Encounter Summary ---
Author Organization [facility] Address [address] [place] [address] Care Team Providers Care Armature Bander Name Role Phone Reyna Zuniga NP Primary Care Provider [phone] Encounter Details Date Type Department Care Team (Late st Contact Info) Description 02/15/2025 Health Home [facility] [address] [place] [phone] Jia Lowe RN Social History Tobacco Use [...] [facility] [address] [place] [phone] Federica Quintana LPN 09/06/2025 8:00 AM EST PACE Home Care / [facility] Home Visit [facility] [address] [place] [phone] Tiana Sibley 09/06/2025 12:15 PM EST Treatment [facility] Occupational Therapy [address] [place] [address] Antonio Andrade OT 09/06/2025 5:30 PM EST PACE Home Care / [facility] [address] [place] [address] Daksha Yates 09/07/2025 8:30 AM EST PACE Home Care / [facility] [place] [facility] [address] [place] [address] Melissa Raza 09/07/2025 12:30 PM EST PACE Home Care / [facility] [place] [facility] [address] [place] [address] Melissa Raza 09/07/2025 5:30 PM EST PACE Home Care / [facility] [place] [facility] [address] [place] [address] Daksha Yates 09/08/2025 8:30 AM EST PACE Home Care / [facility] [place] [facility] [address] [place] [address] Tiana Sibley 09/08/2025 12:30 PM EST PACE Home Care / [facility] [place] [facility] [address] [place] [address] Daksha Yates 09/08/2025 5:30 PM EST PACE Home Care / [facility] [place] [facility] [address] [place] [address] Daksha Yates 09/09/2025 8:30 AM EST PACE Home Care / [facility] [place] [facility] [address] [place] [address] Tiana Sibley 09/09/2025 12:30 PM EST P[facility] Home Care / [facility] [place] [facility] [address] [place] [address] Daksha Yates 09/09/2025 5:30 PM EST P[facility] Home Care / [facility] [place] [facility] [address] [place] [address] Tiana Sibley 09/10/2025 9:00 AM EST PACE Home Care / [facility] [place] [facility] [address] [place] [address] Tiana Sibley 09/10/2025 12:00 PM EST P[facility] Home Care / [facility] [place] [facility] [address] [place] [phone] Brigida Hendricks 09/10/2025 5:00 PM EST P[facility] Home [facility] / [facility] [place] [facility] [address] [place] [phone] Tiana Sibley 09/11/2025 7:30 AM EST P[facility] Home [facility] / [facility] [place] [facility] [address] [place] [phone] Brigida Hendricks 09/11/2025 12:30 PM EST P[facility] Home Care / [facility] [place] [facility] [address] [place] [phone] Brigida Hendricks 09/11/2025 5:30 PM EST P[facility] Home [facility] / [facility] [place] [facility] [address] [place] [phone] Brigida Hendricks 09/12/2025 8:00 AM EST P[facility] Home Care / [facility] [place] [facility] [address] [place] [phone] Melissa Raza 09/12/2025 12:30 PM EST P[facility] Home Care / [facility] [place] [facility] [address] [place] [address] Melissa Raza 09/12/2025 5:30 PM EST P[facility] Home Care / [facility] [address] [place] [address] Daksha Yates 09/13/2025 Clinical Support [facility] [address] [place] [address] Federica Quintana LPN 09/13/2025 8:00 AM EST [facility] Home Care / [facility] [address] [place] [address] Tiana Sibley 09/13/2025 12:30 PM EST P[facility] Home Care / [facility] Home Visit [facility] [address] [place] [address] Lata Ford 09/13/2025 5:30 PM EST PACE Home Care / [facility] Home Visit [facility] [address] [place] [address] Daksha Yates 09/14/2025 8:00 AM EST PACE Home Care / [facility] Visit [facility] [address] [place] [address] Melissa Raza 09/14/2025 12:30 PM EST P[facility] Home [facility] / [facility] [address] [place] [address] Melissa Raza 09/14/2025 5:30 PM EST PACE Home Care / [facility] [address] [place] [address] Daksha Yates 09/15/2025 8:00 AM EST P[facility] Home Care / [facility] [address] [place] [address] Tiana Sibley 09/15/2025 12:30 PM EST P[facility] Home [facility] / [facility] [place] [facility] [address] [place] [address] Daksha Yates 09/15/2025 5:30 PM EST P[facility] Home [facility] / [facility] [place] [facility] [address] [place] [address] Daksha Yates 09/16/2025 8:30 AM EST P[facility] Home Care / [facility] [place] [facility] [address] [place] [address] Tiana Sibley 09/16/2025 12:30 PM EST P[facility] Home Care / [facility] [place] [facility] [address] [place] [phone] Daksha Yates 09/16/2025 5:30 PM EST P[facility] Home [facility] / [facility] [place] [facility] [address] [place] [phone] Tiana Sibley 09/17/2025 8:30 AM EST P[facility] Home [facility] / [facility] [place] [facility] [address] [place] [phone] Tiana Sibley 09/17/2025 12:30 PM EST P[facility] Home [facility] / [facility] [place] [facility] [address] [place] [phone] Tiana Sibley 09/17/2025 5:30 PM EST [facility] Home [facility] / [facility] [place] [facility] [address] [place] [phone] Tiana Sibley 09/18/2025 8:00 AM EST [facility] Home [facility] / [facility] [address] [place] [address] Daksha Yates 09/18/2025 12:30 PM EST [facility] Home [facility] / [facility] [address] [place] [address] Daksha Yates 09/18/2025 5:30 PM EST P[facility] Home [facility] / [facility] [address] [place] [address] Daksha Yates 09/19/2025 8:00 AM EST P[facility] Home [facility] / [facility] [address] [place] [address] Melissa Raza 09/19/2025 12:30 PM EST [facility] Home [facility] / [facility] [address] [place] [phone] Melissa Raza 09/19/2025 5:30 PM EST P[facility] Home Care / [facility] [address] [place] [address] Daksha Ytaes 09/20/2025 Clinical Support [facility] [address] [place] [address] Federica Quintana LPN 09/20/2025 8:00 AM EST P[facility] Home Care / [facility] [address] [place] [address] Tiana Sibley 09/20/2025 12:30 PM EST P[facility] Home Care / [facility] [address] [place] [address] Lata Ford 09/20/2025 5:30 PM EST P[facility] Home Care / [facility] [address] [place] [address] Daksha Yates 09/21/2025 8:00 AM EST P[facility] Home Care / [facility] Home Visit [facility] [address] [place] [address] Melissa Raza 09/21/2025 12:30 PM EST P[facility] Home Care / [facility] Home Visit [facility] [address] [place] [address] Melissa Raza 09/21/2025 5:30 PM EST P[facility] Home Care / [facility] Visit [facility] [address] [place] [phone] [facility] 09/22/2025 8:00 AM EST P[facility] Home Care / [facility] Home Visit [facility] [address] [place] [phone] Tiana Sibley 09/22/2025 12:30 PM EST PACE Home Care / [facility] Visit [facility] [address] [place] [phone] [facility] 09/22/2025 5:30 PM EST P[facility] Home [facility] / [facility] [address] [place] [phone] Trudy [facility] 09/23/2025 8:30 AM EST PACE Home Care / [facility] [address] [place] [phone] Tiana Sibley 09/23/2025 12:30 PM EST PACE Home Care / [facility] [place] [facility] [address] [place] [phone] [facility] 09/23/2025 5:30 PM EST P[facility] Home [facility] / [facility] [address] [place] [address] Tiana Sibley 09/24/2025 8:30 AM EST P[facility] Home [facility] / [facility] [address] [place] [address] Tiana Sibley 09/24/2025 12:30 PM EST P[facility] Home Care / [facility] [address] [place] [phone] Tiana Sibley 09/24/2025 5:00 PM EST P[facility] Home [facility] / [facility] [place] [facility] [address] [place] [phone] Tiana Sibley 09/25/2025 8:30 AM EST P[facility] Home [facility] / [facility] [address] [place] [phone] Brigida Hendricks 09/25/2025 12:30 PM EST P[facility] Home Care / [facility] [address] [place] [phone] Birgida Hendricks 09/25/2025 5:30 PM EST P[facility] Home Care / [facility] [address] [place] [phone] Brigida Hendricks 09/26/2025 8:00 AM EST P[facility] Home Care / [facility] [address] [place] [phone] Melissa Raza 09/26/2025 12:30 PM EST P[facility] Home [facility] / [facility] [address] [place] [phone] Melissa Raza 09/26/2025 5:30 PM EST PACE Home Care / [facility] Visit [facility] [address] [place] [address] Daksha Yates 09/27/2025 Clinical Support [facility] [address] [place] [address] Federica Quintana LPN 09/27/2025 8:00 AM EST PACE Home Care / [facility] Visit [facility] [address] [place] [address] Tiana Sibley 09/27/2025 12:30 PM EST PACE Home Care / [facility] Home Visit [facility] [address] [place] [address] Lata Ford 09/27/2025 5:30 PM EST PACE Home Care / P[facility] Home Visit [facility] [address] [place] [address] Daksha Yates 09/28/2025 8:00 AM EST PACE Home Care / [facility] Visit [facility] [address] [place] [phone] Melissa Raza 09/28/2025 12:30 PM EST PACE Home Care / [facility] Visit [facility] [address] [place] [phone] Melissa Raza 09/28/2025 5:30 PM EST P[facility] Home Care / [facility] Visit [facility] [address] [place] [address] Daksha Yates 09/29/2025 8:00 AM EST PACE Home Care / [facility] Home Visit [facility] [address] [place] [phone] Tiana Sibley 09/29/2025 12:30 PM EST PACE Home Care / [facility] [address] [place] [address] Daksha Yates 09/29/2025 5:30 PM EST P[facility] Home Care / [facility] [address] [place] [address] Daksha Yates 09/30/2025 8:30 AM EST P[facility] Home Care / [facility] [address] [place] [address] Tiana Sibley 09/30/2025 12:30 PM EST P[facility] Home Care / [facility] [address] [place] [address] Daksha Yates 09/30/2025 5:30 PM EST P[facility] Home Care / [facility] [address] [place] [address] Tiana Sibley 10/01/2025 8:30 AM EST P[facility] Home Care / [facility] [address] [place] [phone] Tiana Sibley 10/01/2025 12:30 PM EST P[facility] Home [facility] / [facility] [address] [place] [address] Tiana Sibley 10/01/2025 5:30 PM EST P[facility] Home Care / [facility] [address] [place] [phone] Tiana Sibley 10/02/2025 8:00 AM EST P[facility] Home [facility] / [facility] [address] [place] [address] Daksha Yates 10/02/2025 12:30 PM EST [facility] Home [facility] / [facility] [address] [place] [address] aDksha Yates 10/02/2025 5:30 PM EST PACE Home Care / [facility] [address] [place] [address] Daksha Yates 10/03/2025 8:00 AM EST P[facility] Home Care / [facility] [address] [place] [phone] Melissa Raza 10/03/2025 12:30 PM EST P[facility] Home [facility] / [facility] [address] [place] [phone] Melissa Raza 10/03/2025 5:30 PM EST P[facility] Home [facility] / [facility] [address] [place] [phone] Daksha Yates 10/04/2025 Clinical Support [facility] [address] [place] [phone] Federica Quintana LPN 10/04/2025 8:00 AM EST PACE Home Care / [facility] [address] [place] [phone] Tiana Sibley 10/04/2025 12:30 PM EST P[facility] Home [facility] / [facility] [address] [place] [phone] Lata Ford 10/04/2025 5:30 PM EST P[facility] Home [facility] / [facility] [address] [place] [phone] Daksha Yates 10/05/2025 8:00 AM EST P[facility] Home Care / [facility] [address] [place] [address] Melissa Raza 10/05/2025 12:30 PM EST P[facility] Home Care / [facility] [address] [place] [address] Melissa Raza 10/05/2025 5:30 PM EST P[facility] Home [facility] / [facility] [address] [place] [phone] Daksha Yates 10/06/2025 8:00 AM EST P[facility] Home [facility] / [facility] [address] [place] [phone] Tiana Sibley 10/06/2025 12:30 PM EST P[facility] Home Care / [facility] [address] [place] [phone] Daksha Yates 10/06/2025 5:30 PM EST P[facility] Home [facility] / [facility] [address] [place] [phone] Daksha Yates 10/07/2025 8:30 AM EST P[facility] Home [facility] / [facility] [address] [place] [phone] Tiana Sibley 10/07/2025 12:30 PM EST P[facility] Home Care / [facility] [address] [place] [phone] Daksha Yates 10/07/2025 5:30 PM EST P[facility] Home Care / [facility] [address] [place] [phone] Tiana Sibley 10/08/2025 8:30 AM EST P[facility] Home [facility] / [facility] [address] [place] [phone] Tiana Sibley 10/08/2025 12:30 PM EST P[facility] Home [facility] / [facility] [address] [place] [phone] Tiana Sibley 10/08/2025 5:00 PM EST P[facility] Home Care / [facility] [address] [place] [phone] Tiana Sibley 10/09/2025 8:30 AM EST PACE Home Care / [facility] [address] [place] [phone] Brigida Hendricks 10/09/2025 12:30 PM EST P[facility] Home Care / [facility] [address] [place] [phone] Brigida Hendricks 10/09/2025 5:30 PM EST P[facility] Home Care / [facility] [address] [place] [phone] Brigida Hendricks 10/10/2025 8:00 AM EST PACE Home Care / [facility] [address] [place] [phone] Melissa Raza 10/10/2025 12:30 PM EST P[facility] Home Care / [facility] [address] [place] [phone] Melissa Raza 10/10/2025 5:30 PM EST [facility] Home [facility] / [facility] [address] [place] [phone] Daksha Yates 10/11/2025 8:00 AM EST P[facility] Home Care / [facility] [address] [place] [phone] Tiana Sibley 10/11/2025 12:30 PM EST PACE Home Care / [facility] [address] [place] [address] Lata Ford 10/11/2025 5:30 PM EST P[facility] Home Care / [facility] [address] [place] [phone] Daksha Yates 10/12/2025 8:00 AM EST P[facility] Home [facility] / [facility] [address] [place] [phone] Melissa Raza 10/12/2025 12:30 PM EST P[facility] Home [facility] / [facility] [address] [place] [phone] Melissa Raza 10/12/2025 5:30 PM EST P[facility] Home Care / [facility] [address] [place] [phone] Daksha Yates 10/13/2025 8:00 AM EST P[facility] Home [facility] / [facility] [address] [place] [phone] Tiana Sibley 10/13/2025 12:30 PM EST P[facility] Home [facility] / [facility] [address] [place] [phone] Daksha Yates 10/13/2025 5:30 PM EST P[facility] Home Care / [facility] [address] [place] [phone] Daksha Yates 10/14/2025 8:30 AM EST P[facility] Home Care / [facility] [address] [place] [address] Tiana Sibley 10/14/2025 12:30 PM EST P[facility] Home Care / [facility] [address] [place] [phone] Daksha Yates 10/14/2025 5:30 PM EST P[facility] Home Care / [facility] [address] [place] [phone] Tiana Sibley 10/15/2025 8:30 AM EST PACE Home Care / [facility] [address] [place] [phone] Tiana Sibley 10/15/2025 12:30 PM EST P[facility] Home Care / [facility] [address] [place] [phone] Tiana Sibley 10/15/2025 5:30 PM EST PACE Home Care / [facility] [address] [place] [phone] Tiana Sibley 10/16/2025 8:00 AM EST P[facility] Home Care / [facility] [address] [place] [phone] Daksha Yates 10/16/2025 12:30 PM EST P[facility] Home Care / [facility] [address] [place] [phone] Daksha Yates 10/16/2025 5:30 PM EST P[facility] Home Care / [facility] [address] [place] [address] Daksha Yates 10/17/2025 8:00 AM EST P[facility] Home Care / [facility] [address] [place] [address] Melissa Raza 10/17/2025 12:30 PM EST P[facility] Home Care / [facility] [address] [place] [address] Melissa Raza 10/17/2025 5:30 PM EST P[facility] Home Care / [facility] [address] [place] [phone] Daksha Yates 10/18/2025 8:00 AM EST P[facility] Home Care / [facility] [address] [place] [phone] Tiana Sibley 10/18/2025 12:30 PM EST PACE Home Care / [facility] [address] [place] [phone] Lata Ford 10/18/2025 5:30 PM EST PACE Home Care / [facility] [address] [place] [phone] Daksha Yates 10/19/2025 8:00 AM EST PACE Home Care / [facility] [address] [place] [phone] Melissa Raza 10/19/2025 12:30 PM EST P[facility] Home Care / [facility] [address] [place] [phone] Melissa Raza 10/19/2025 5:30 PM EST P[facility] Home Care / [facility] [address] [place] [address] Trudy, [facility] 10/20/2025 8:00 AM EST PACE Home Care / [facility] [address] [place] [address] Tiana Sibley 10/20/2025 12:30 PM EST PACE Home Care / [facility] [address] [place] [address] Trudy, [facility] 10/20/2025 5:30 PM EST PACE Home Care / [facility] [address] [place] [phone] Keshakimberly, [facility] 10/21/2025 8:30 AM EST PACE Home Care / [facility] [address] [place] [address] Tiana Sibley 10/21/2025 12:30 PM EST PACE Home Care / [facility] [address] [place] [phone] Keshakimberly, [facility] 10/21/2025 5:30 PM EST P[facility] Home Care / [facility] [facility] [address] [place] [phone] Tiana Sibley 10/22/2025 8:30 AM EST [facility] [place] [facility] [address] [place] [phone] Tiana Sibley 10/22/2025 12:30 PM EST [facility] / [facility] [place] [facility] [address] [place] [phone] Tiana Sibley 10/22/2025 5:00 PM EST [facility] / [facility] Visit [facility] [place] [facility] [address] [place] [phone] Tiana Sibley 10/23/2025 8:30 AM EST [facility] / [facility] Visit [facility] [place] [facility] [address] [place] [phone] Brigida Hendricks 10/23/2025 12:30 PM EST [facility] / [facility] [place] [facility] [address] [place] [phone] Brigida Hendricks 10/23/2025 5:30 PM EST [facility] / [facility] [place] [facility] [address] [place] [phone] Brigida Hendricks 10/24/2025 8:00 AM EST [facility] / [facility] [place] [facility] [address] [place] [phone] Melissa Raza 10/24/2025 12:30 PM EST [facility] / [facility] [place] [facility] [address] [place] [phone] Melissa Raza 10/24/2025 5:30 PM EST [facility] / [facility] [place] [facility] [address] [place] [phone] Daksha Yates 10/25/2025 8:00 AM EST [facility] / [facility] [place] [facility] [address] [place] [phone] Tiana Sibley 10/25/2025 12:30 PM EST [facility] / [facility] [place] [facility] [address] [place] [phone] Lata Ford 10/25/2025 5:30 PM EST [facility] / [facility] [place] [facility] [address] [place] [phone] [facility] 10/26/2025 8:00 AM EST [facility] / [facility] [place] [facility] [address] [place] [phone] Melissa Raza 10/26/2025 12:30 PM EST [facility] / [facility] [place] [facility] [address] [place] [phone] Melissa Raza 10/26/2025 5:30 PM EST [facility] / [facility] [place] [facility] [address] [place] [phone] [facility] 10/27/2025 8:00 AM EST [facility] / [facility] [place] [facility] [address] [place] [phone] Tiana Sibley 10/27/2025 12:30 PM EST [facility] / [facility] Visit [facility] [place] [facility] [address] [place] [phone] Trudy [facility] 10/27/2025 5:30 PM EST [facility] / [facility] Visit [facility] [place] [facility] [address] [place] [phone] Dansereadaniel[facility] 10/28/2025 8:30 AM EST [facility] / [facility] [place] [facility] [address] [place] [phone] Tiana Sibley 10/28/2025 12:30 PM EST [facility] / [facility] [place] [facility] [address] [place] [phone] [facility] 10/28/2025 5:30 PM EST [facility] / [facility] [place] [facility] [address] [place] [phone] Tiana Sibley 10/29/2025 8:30 AM EST [facility] / [facility] [place] [facility] [address] [place] [phone] Tiana Sibley 10/29/2025 12:30 PM EST [facility] / [facility] Visit [facility] [place] [facility] [address] [place] [phone] Tiana Sibley 10/29/2025 5:30 PM EST [facility] / [facility] Visit [facility] [place] [facility] [address] [place] [phone] Tiana Sibley 10/30/2025 8:00 AM EST [facility] / [facility] [place] [facility] [address] [place] [phone] [facility] [address] 10/30/2025 12:30 PM EST [facility] / [facility] [place] [facility] [address] [place] [phone] Dansereadaniel, [facility] 10/30/2025 5:30 PM EST [facility] / [facility] Visit [facility] [place] [facility] [address] [place] [phone] Dansereau [facility] 10/31/2025 8:00 AM EST [facility] / [facility] Visit [facility] [place] [facility] [address] [place] [phone] Melissa Raza 10/31/2025 12:30 PM EST [facility] / [facility] [place] [facility] [address] [place] [phone] Melissa Raza 10/31/2025 5:30 PM EST [facility] / [facility] [place] [facility] [address] [place] [phone] Daksha Yates 11/01/2025 8:00 AM EST [facility] / [facility] [place] [facility] [address] [place] [phone] Tiana Sibley 11/01/2025 12:30 PM EST [facility] / [facility] Visit [facility] [place] [facility] [address] [place] [phone] Lata Ford 11/01/2025 5:30 PM EST [facility] / [facility] Visit [facility] [place] [facility] [address] [place] [phone] Daksha Yates 11/02/2025 8:00 AM EST [facility] / [facility] [place] [facility] [address] [place] [phone] Melissa Raza 11/02/2025 12:30 PM EST [facility] / [facility] [place] [facility] [address] [place] [phone] Melissa Raza 11/02/2025 5:30 PM EST [facility] / [facility] [place] [facility] [address] [place] [phone] Daksha Yates 11/03/2025 8:00 AM EST [facility] / [facility] Visit [facility] [place] [facility] [address] [place] [phone] Tiana Sibley 11/03/2025 12:30 PM EST [facility] / [facility] Visit [facility] [place] [facility] [address] [place] [phone] Daksha Yates 11/03/2025 5:30 PM EST [facility] / [facility] Home Visit [facility] [address] [place] [phone] Daksha Yates 11/04/2025 8:30 AM EST [facility] / [facility] Home Visit [facility] [address] [place] [phone] Tiana Sibley 11/04/2025 12:30 PM EST [facility] / [facility] Home Visit [facility] [address] [place] [phone] Daksha Yates 11/04/2025 5:30 PM EST [facility] / [facility] Home Visit [facility] [address] [place] [phone] Tiana Sibley documented as of this encounter Visit Diagnoses Not on filedocumented in this encounter Care Teams Armature Bander Relationship Specialty Start Date End Date Reyna Zuniga NP [address] [place] [id number] PCP - General Family Medicine 11/06/24 documented as of this encounter
--- OUTSIDE RECORDS SUMMARY | 2025-09-05 23:51 | XMS_ITS | Encounter Summary ---
Author Organization [facility] Address [address] [place] [address] Care Team Providers Care Clinical Psychology Teacher Name Role Phone Reyna Zuniga RESEARCH INSTRUMENTATION TECHNICIAN Primary Care Provider [phone] Reason for Visit * Reason Onset Date Comments Clinical 04/03/2025 Par called to re port he does not want the shingles vaccine. IDT to f/u as needed. Encounter Details Date Type Department Care Team (Late st Contact Info) Description 04/03/2025 [place] [facility] [address] [place] [phone] Reyna Zuniga, GIOVANNA [address] [id number] Social History Tobacco Use Types Packs/Day Years [...] [facility] [address] [place] [address] Federica Quintana LPN 09/06/2025 8:00 AM EST PACE Home Care / P[facility] Home Visit [facility] [address] [place] [address] Tiana Sibley 09/06/2025 12:15 PM EST Treatment [facility] [place] Occupational Therapy [address] [place] [address] Antonio Andrade OT 09/06/2025 5:30 PM EST PACE Home Care / PACE Home Visit [facility] [address] [place] [address] Daksha Yates 09/07/2025 8:30 AM EST PACE Home Care / PACE Home Visit [facility] [address] [place] [phone] Melissa Raza 09/07/2025 12:30 PM EST PACE Home Care / PACE Home Visit [facility] [address] [place] [phone] Melissa Raza 09/07/2025 5:30 PM EST PACE Home Care / PACE Home Visit [facility] [address] [place] [phone] Daksha Yates 09/08/2025 8:30 AM EST PACE Home Care / PACE Home Visit [facility] [address] [place] [phone] Tiana Sibley 09/08/2025 12:30 PM EST PACE Home Care / PACE Home Visit [facility] [address] [place] [phone] Daksha Yates 09/08/2025 5:30 PM EST PACE Home Care / [facility] [address] [place] [address] Daksha Yates 09/09/2025 8:30 AM EST PACE Home Care / [facility] Visit [facility] [address] [place] [address] Tiana Sibley 09/09/2025 12:30 PM EST PACE Home Care / [facility] [address] [place] [phone] Daksha Yates 09/09/2025 5:30 PM EST PACE Home Care / [facility] [address] [place] [phone] Tiana Sibley 09/10/2025 9:00 AM EST PACE Home Care / [facility] [address] [place] [phone] Tiana Sibley 09/10/2025 12:00 PM EST PACE Home Care / [facility] [address] [place] [phone] Brigida Hendricks 09/10/2025 5:00 PM EST PACE Home Care / [facility] [address] [place] [phone] Tiana Sibley 09/11/2025 7:30 AM EST PACE Home Care / [facility] [address] [place] [phone] Brigida Hendricks 09/11/2025 12:30 PM EST PACE Home Care / [facility] [address] [place] [phone] Brigida Hendricks 09/11/2025 5:30 PM EST PACE Home Care / PACE Home Visit [facility] [address] [place] [address] Brigida Hendricks 09/12/2025 8:00 AM EST PACE Home Care / PACE Home Visit [facility] [address] [place] [address] Melissa Raza 09/12/2025 12:30 PM EST PACE Home Care / [facility] [address] [place] [phone] Melissa Raza 09/12/2025 5:30 PM EST PACE Home Care / PACE Home Visit [facility] [address] [place] [phone] Daksha Yates 09/13/2025 Clinical Support [facility] [address] [place] [address] Federica Quintana LPN 09/13/2025 8:00 AM EST PACE Home Care / [facility] [address] [place] [phone] Tiana Sibley 09/13/2025 12:30 PM EST PACE Home Care / [facility] Visit [facility] [address] [place] [phone] Lata Ford 09/13/2025 5:30 PM EST PACE Home Care / [facility] Visit [facility] [address] [place] [phone] Daksha Yates 09/14/2025 8:00 AM EST PACE Home Care / [facility] Home Visit [facility] [place] [facility] [address] [place] [phone] Melissa Raza 09/14/2025 12:30 PM EST PACE Home Care / [facility] Visit [facility] [address] [place] [address] Melissa Raza 09/14/2025 5:30 PM EST PACE Home Care / [facility] Visit [facility] [place] [facility] [address] [place] [address] Daksha Yates 09/15/2025 8:00 AM EST PACE Home Care / [facility] Visit [facility] [place] [facility] [address] [place] [address] Tiana Sibley 09/15/2025 12:30 PM EST PACE Home Care / [facility] Visit [facility] [place] [facility] [address] [place] [phone] Daksha Yates 09/15/2025 5:30 PM EST PACE Home Care / [facility] Visit [facility] [place] [facility] [address] [place] [address] Daksha Yates 09/16/2025 8:30 AM EST PACE Home Care / [facility] Visit [facility] [place] [facility] [address] [place] [address] Tiana Sibley 09/16/2025 12:30 PM EST PACE Home Care / [facility] Visit [facility] [place] [facility] [address] [place] [address] Daksha Yates 09/16/2025 5:30 PM EST PACE Home Care / [facility] Visit [facility] [place] [facility] [address] [place] [address] Tiana Sibley 09/17/2025 8:30 AM EST PACE Home Care / [facility] Visit [facility] [place] [facility] [address] [place] [phone] Tiana Sibley 09/17/2025 12:30 PM EST PACE Home Care / PACE Home Visit [facility] [address] [place] [address] Tiana Sibley 09/17/2025 5:30 PM EST PACE Home Care / [facility] Visit [facility] [place] [facility] [address] [place] [address] Tiana Sibley 09/18/2025 8:00 AM EST PACE Home Care / [facility] [address] [place] [phone] Daksha Yates 09/18/2025 12:30 PM EST PACE Home Care / PACE Home Visit [facility] [address] [place] [phone] Daksha Yates 09/18/2025 5:30 PM EST PACE Home Care / PACE Home Visit [facility] [address] [place] [phone] Daksha Yates 09/19/2025 8:00 AM EST PACE Home Care / [facility] [address] [place] [phone] Melissa Raza 09/19/2025 12:30 PM EST PACE Home Care / [facility] Visit [facility] [place] [facility] [address] [place] [phone] Melissa Raza 09/19/2025 5:30 PM EST PACE Home Care / [facility] Visit [facility] [place] [facility] [address] [place] [phone] Daksha Yates 09/20/2025 Clinical Support [facility] [address] [place] [phone] Federica Quintana LPN 09/20/2025 8:00 AM EST P[facility] Home Care / [facility] [place] [facility] [address] [place] [address] Tiana Sibley 09/20/2025 12:30 PM EST PACE Home Care / [facility] Visit [facility] [address] [place] [address] Lata Ford 09/20/2025 5:30 PM EST PACE Home Care / [facility] Visit [facility] [place] [facility] [address] [place] [phone] Daksha Yates 09/21/2025 8:00 AM EST PACE Home Care / [facility] [place] [facility] [address] [place] [phone] Melissa Raza 09/21/2025 12:30 PM EST PACE Home Care / [facility] Visit [facility] [place] [facility] [address] [place] [phone] Melissa Raza 09/21/2025 5:30 PM EST PACE Home Care / [facility] [place] [facility] [address] [place] [phone] Daksha Yates 09/22/2025 8:00 AM EST PACE Home Care / [facility] [place] [facility] [address] [place] [phone] Tiana Sibley 09/22/2025 12:30 PM EST PACE Home Care / [facility] Visit [facility] [place] [facility] [address] [place] [phone] Daksha Yates 09/22/2025 5:30 PM EST PACE Home Care / [facility] Visit [facility] [place] [facility] [address] [place] [phone] Daksha Yates 09/23/2025 8:30 AM EST PACE Home Care / [facility] Visit [facility] [place] [facility] [address] [place] [address] Tiana Sibley 09/23/2025 12:30 PM EST PACE Home Care / [facility] Visit [facility] [place] [facility] [address] [place] [phone] Daksha Yates 09/23/2025 5:30 PM EST PACE Home Care / [facility] [place] [facility] [address] [place] [phone] Tiana Sibley 09/24/2025 8:30 AM EST PACE Home Care / [facility] [place] [facility] [address] [place] [phone] Tiana Sibley 09/24/2025 12:30 PM EST PACE Home Care / [facility] [place] [facility] [address] [place] [phone] Tiana Sibley 09/24/2025 5:00 PM EST PACE Home Care / [facility] [place] [facility] [address] [place] [phone] Tiana Sibley 09/25/2025 8:30 AM EST PACE Home Care / [facility] [place] [facility] [address] [place] [phone] Brigida Hendricks 09/25/2025 12:30 PM EST PACE Home Care / [facility] [address] [place] [phone] Brigida Hendricks 09/25/2025 5:30 PM EST PACE Home Care / [facility] Visit [facility] [address] [place] [phone] Brigida Hendricks 09/26/2025 8:00 AM EST PACE Home Care / PACE Home Visit [facility] [address] [place] [address] Melissa Raza 09/26/2025 12:30 PM EST PACE Home Care / PACE Home Visit [facility] [address] [place] [phone] Melissa Raza 09/26/2025 5:30 PM EST PACE Home Care / PACE Home Visit [facility] [address] [place] [phone] Daksha Yates 09/27/2025 Clinical Support [facility] [address] [place] [phone] Federica Quintana LPN 09/27/2025 8:00 AM EST PACE Home Care / PACE Home Visit [facility] [address] [place] [phone] Tiana Sibley 09/27/2025 12:30 PM EST PACE Home Care / [facility] [address] [place] [phone] Lata Ford 09/27/2025 5:30 PM EST PACE Home Care / [facility] Visit [facility] [address] [place] [phone] Daksha Yates 09/28/2025 8:00 AM EST PACE Home Care / [facility] Visit [facility] [address] [place] [phone] Melissa Raza 09/28/2025 12:30 PM EST PACE Home Care / [facility] Visit [facility] [place] [facility] [address] [place] [phone] Melissa Raza 09/28/2025 5:30 PM EST PACE Home Care / [facility] Visit [facility] [place] [facility] [address] [place] [address] Daksha Yates 09/29/2025 8:00 AM EST PACE Home Care / [facility] Visit [facility] [address] [place] [address] Tiana Sibley 09/29/2025 12:30 PM EST PACE Home Care / [facility] Visit [facility] [place] [facility] [address] [place] [phone] Daksha Yates 09/29/2025 5:30 PM EST PACE Home Care / [facility] [place] [facility] [address] [place] [phone] Daksha Yates 09/30/2025 8:30 AM EST PACE Home Care / [facility] [place] [facility] [address] [place] [address] Tiana Sibley 09/30/2025 12:30 PM EST PACE Home Care / [facility] [place] [facility] [address] [place] [phone] Daksha Yates 09/30/2025 5:30 PM EST PACE Home Care / [facility] [address] [place] [address] Tiana Sibley 10/01/2025 8:30 AM EST PACE Home Care / [facility] Visit [facility] [address] [place] [phone] Tiana Sibley 10/01/2025 12:30 PM EST PACE Home Care / [facility] Visit [facility] [address] [place] [address] Tiana Sibley 10/01/2025 5:30 PM EST PACE Home Care / PACE Home Visit [facility] [address] [place] [phone] Tiaan Sibley 10/02/2025 8:00 AM EST PACE Home Care / PACE Home Visit [facility] [address] [place] [address] Daksha Yates 10/02/2025 12:30 PM EST PACE Home Care / PACE Home Visit [facility] [address] [place] [phone] Daksha Yates 10/02/2025 5:30 PM EST PACE Home Care / PACE Home Visit [facility] [address] [place] [phone] Daksha Yates 10/03/2025 8:00 AM EST PACE Home Care / PACE Home Visit [facility] [address] [place] [phone] Melissa Raza 10/03/2025 12:30 PM EST PACE Home Care / PACE Home Visit [facility] [address] [place] [phone] Melissa Raza 10/03/2025 5:30 PM EST PACE Home Care / PACE Home Visit [facility] [address] [place] [phone] Daksha Yates 10/04/2025 Clinical Support [facility] [address] [place] [phone] Federica Quintana LPN 10/04/2025 8:00 AM EST PACE Home Care / PACE Home Visit [facility] [address] [place] [address] Tiana Sibley 10/04/2025 12:30 PM EST PACE Home Care / [facility] [address] [place] [address] Lata Ford 10/04/2025 5:30 PM EST PACE Home Care / [facility] [address] [place] [address] Daksha Yates 10/05/2025 8:00 AM EST PACE Home Care / [facility] [address] [place] [address] Melissa Raza 10/05/2025 12:30 PM EST PACE Home Care / [facility] [address] [place] [address] Melissa Raza 10/05/2025 5:30 PM EST PACE Home Care / [facility] [address] [place] [address] Daksha Yates 10/06/2025 8:00 AM EST PACE Home Care / [facility] [address] [place] [address] Tiana Sibley 10/06/2025 12:30 PM EST PACE Home Care / [facility] Visit [facility] [address] [place] [address] Daksha Yates 10/06/2025 5:30 PM EST PACE Home Care / [facility] [address] [place] [address] Daksha Yates 10/07/2025 8:30 AM EST PACE Home Care / [facility] [address] [place] [address] Tiana Sibley 10/07/2025 12:30 PM EST PACE Home Care / [facility] [address] [place] [phone] Daksha Yates 10/07/2025 5:30 PM EST PACE Home Care / [facility] [address] [place] [address] Tiana Sibley 10/08/2025 8:30 AM EST PACE Home Care / [facility] [address] [place] [address] Tiana Sibley 10/08/2025 12:30 PM EST PACE Home Care / [facility] [address] [place] [address] Tiana Sibley 10/08/2025 5:00 PM EST PACE Home Care / [facility] [address] [place] [phone] Tiana Sibley 10/09/2025 8:30 AM EST PACE Home Care / [facility] [address] [place] [phone] Brigida Hendricks 10/09/2025 12:30 PM EST PACE Home Care / [facility] [address] [place] [phone] Brigida Hendricks 10/09/2025 5:30 PM EST PACE Home Care / [facility] [address] [place] [phone] Brigida Hendricks 10/10/2025 8:00 AM EST PACE Home Care / [facility] [address] [place] [address] Melissa Raza 10/10/2025 12:30 PM EST PACE Home Care / [facility] [address] [place] [address] Melissa Raza 10/10/2025 5:30 PM EST PACE Home Care / [facility] [address] [place] [phone] Daksha Yates 10/11/2025 8:00 AM EST PACE Home Care / [facility] [address] [place] [phone] Tiana Sibley 10/11/2025 12:30 PM EST PACE Home Care / [facility] [address] [place] [phone] Lata Ford 10/11/2025 5:30 PM EST PACE Home Care / [facility] [address] [place] [phone] Daksha Yates 10/12/2025 8:00 AM EST PACE Home Care / [facility] [address] [place] [phone] Melissa Raza 10/12/2025 12:30 PM EST PACE Home Care / [facility] [address] [place] [phone] Melissa Raza 10/12/2025 5:30 PM EST PACE Home Care / [facility] [address] [place] [phone] Daksha Yates 10/13/2025 8:00 AM EST PACE Home Care / [facility] [address] [place] [address] Tiana Sibley 10/13/2025 12:30 PM EST PACE Home Care / [facility] [address] [place] [address] Daksha Yates 10/13/2025 5:30 PM EST PACE Home Care / [facility] [address] [place] [address] Daksha Yates 10/14/2025 8:30 AM EST PACE Home Care / [facility] [address] [place] [phone] Tiana Sibley 10/14/2025 12:30 PM EST PACE Home Care / [facility] [address] [place] [phone] Daksha Yates 10/14/2025 5:30 PM EST PACE Home Care / [facility] [address] [place] [phone] Tiana Sibley 10/15/2025 8:30 AM EST PACE Home Care / [facility] [address] [place] [phone] Tiana Sibley 10/15/2025 12:30 PM EST PACE Home Care / [facility] [address] [place] [phone] Tiana Sibley 10/15/2025 5:30 PM EST PACE Home Care / [facility] [address] [place] [phone] Tiana Sibley 10/16/2025 8:00 AM EST PACE Home Care / [facility] [address] [place] [address] Daksha Yates 10/16/2025 12:30 PM EST PACE Home Care / [facility] [address] [place] [phone] Daksha Yates 10/16/2025 5:30 PM EST PACE Home Care / [facility] [address] [place] [phone] Daksha Yates 10/17/2025 8:00 AM EST PACE Home Care / [facility] [address] [place] [phone] Melissa Raza 10/17/2025 12:30 PM EST PACE Home Care / [facility] [address] [place] [phone] Melissa Raza 10/17/2025 5:30 PM EST PACE Home Care / [facility] [address] [place] [phone] Daksha Yates 10/18/2025 8:00 AM EST PACE Home Care / [facility] [address] [place] [phone] Tiana Sibley 10/18/2025 12:30 PM EST PACE Home Care / [facility] [address] [place] [phone] Lata Ford 10/18/2025 5:30 PM EST PACE Home Care / [facility] [address] [place] [phone] Daksha Yates 10/19/2025 8:00 AM EST PACE Home Care / [facility] [address] [place] [address] Melissa Raza 10/19/2025 12:30 PM EST PACE Home Care / [facility] [address] [place] [address] Melissa Raza 10/19/2025 5:30 PM EST PACE Home Care / [facility] [address] [place] [phone] [facility] 10/20/2025 8:00 AM EST PACE Home Care / [facility] [address] [place] [phone] Tiana Sibley 10/20/2025 12:30 PM EST PACE Home Care / [facility] [address] [place] [phone] [facility] 10/20/2025 5:30 PM EST PACE Home Care / [facility] [address] [place] [phone] [facility] 10/21/2025 8:30 AM EST PACE Home Care / [facility] [place] [facility] [address] [place] [phone] Tiana Sibley 10/21/2025 12:30 PM EST PACE Home Care / [facility] [address] [place] [phone] [facility] 10/21/2025 5:30 PM EST PACE Home Care / [facility] [address] [place] [phone] Tiana Sibley 10/22/2025 8:30 AM EST PACE Home Care / [facility] [address] [place] [phone] Tiana Sibley 10/22/2025 12:30 PM EST PACE Home Care / [facility] [address] [place] [phone] Tiana Sibley 10/22/2025 5:00 PM EST PACE Home Care / [facility] [address] [place] [phone] Tiana Sibley 10/23/2025 8:30 AM EST PACE Home Care / [facility] [address] [place] [phone] Brigida Hendricks 10/23/2025 12:30 PM EST PACE Home Care / [facility] [address] [place] [phone] Brigida Hendricks 10/23/2025 5:30 PM EST [facility] Home Care / [facility] [address] [place] [phone] Brigida Hendricks 10/24/2025 8:00 AM EST [facility] Home [facility] / [facility] [address] [place] [phone] Melissa Raza 10/24/2025 12:30 PM EST P[facility] Home Care / [facility] [address] [place] [phone] Melissa Raza 10/24/2025 5:30 PM EST PACE Home Care / [facility] Visit [facility] [address] [place] [phone] Daksha Yates 10/25/2025 8:00 AM EST [facility]ACE Home Care / [facility] Visit [facility] [address] [place] [phone] Tiana Sibley 10/25/2025 12:30 PM EST [facility] Home Care / [facility] Visit [facility] [address] [place] [phone] Lata Ford 10/25/2025 5:30 PM EST PACE Home Care / [facility] Visit [facility] [address] [place] [phone] Daksha Yates 10/26/2025 8:00 AM EST [facility] Home [facility] / [facility] [address] [place] [phone] Melissa Raza 10/26/2025 12:30 PM EST [facility]ACE Home [facility] / [facility] [address] [place] [phone] Melissa Raza 10/26/2025 5:30 PM EST [facility]ACE Home [facility] / [facility] [address] [place] [phone] Daksha Yates 10/27/2025 8:00 AM EST [facility] Home [facility] / [facility] [address] [place] [phone] Tiana Sibley 10/27/2025 12:30 PM EST [facility] Home [facility] / [facility] [address] [place] [phone] Daksha Yates 10/27/2025 5:30 PM EST [facility] Home [facility] / [facility] [address] [place] [address] [place] [phone] Daksha Yates 10/28/2025 8:30 AM EST [facility] Home [facility] / [facility] [address] [place] [phone] Tiana Sibley 10/28/2025 12:30 PM EST [facility] Home [facility] / [facility] [address] [place] [phone] Daksha Yates 10/28/2025 5:30 PM EST [facility] Home [facility] / [facility] [address] [place] [phone] Tiana Sibley 10/29/2025 8:30 AM EST [facility] Home [facility] / [facility] [address] [place] [phone] Tiana Sibley 10/29/2025 12:30 PM EST [facility] Home [facility] / [facility] [address] [place] [phone] Tiana Sibley 10/29/2025 5:30 PM EST [facility] Home [facility] / [facility] [address] [place] [phone] Tiana Sibley 10/30/2025 8:00 AM EST [facility] Home [facility] / [facility] [address] [place] [phone] Daksha Yates 10/30/2025 12:30 PM EST [facility]ACE Home [facility] / [facility] [address] [place] [phone] Daksha Yates 10/30/2025 5:30 PM EST [facility] Home [facility] / [facility] [address] [place] [phone] Daksha Yates 10/31/2025 8:00 AM EST [facility] Home [facility] / [facility] [address] [place] [phone] Melissa Raza 10/31/2025 12:30 PM EST [facility] Home [facility] / [facility] [address] [place] [phone] Melissa Raaz 10/31/2025 5:30 PM EST [facility] Home [facility] / [facility] [address] [place] [phone] Daksha Yates 11/01/2025 8:00 AM EST [facility]ACE Home Care / [facility] [address] [place] [phone] Tiana Sibley 11/01/2025 12:30 PM EST [facility] Home [facility] / [facility] [address] [place] [phone] Lata Ford 11/01/2025 5:30 PM EST [facility] Home [facility] / [facility] [address] [place] [phone] Daksha Yates 11/02/2025 8:00 AM EST [facility] Home [facility] / [facility] [address] [place] [phone] Melissa Raza 11/02/2025 12:30 PM EST [facility] Home [facility] / [facility] [address] [place] [phone] Melissa Raza 11/02/2025 5:30 PM EST [facility] Home [facility] / [facility] [address] [place] [phone] Trudy, Daksha 11/03/2025 8:00 AM EST [facility] Home Care / [facility] [address] [place] [phone] Tiana Sibley 11/03/2025 12:30 PM EST [facility] Home [facility] / [facility] [address] [place] [phone] Danskimberly, Shechristian 11/03/2025 5:30 PM EST [facility] Home [facility] / [facility] [address] [place] [phone] Trudy, Daksha 11/04/2025 8:30 AM EST [facility] Home Care / [facility] [address] [place] [phone] Tiana Sibley 11/04/2025 12:30 PM EST [facility] Home Care / [facility] Visit [facility] [address] [place] [phone] Keshakimberly, Daksha 11/04/2025 5:30 PM EST [facility] Home [facility] / [facility] [address] [place] [phone] Tiana Sibley documented as of this encounter Visit Diagnoses Not on filedocumented in this encounter Additional Health Concerns Assessment Noted Time PHQ-9 Depression Total Score: 3 03/25/20 25 11:12 AM EDT documented as of this encounter Care Teams Clinical Psychology Teacher Relationship Specialty Start Date End Date Reyna Zuniag NP [address] [place] [phone] PCP - General Family Medicine 11/06/24 documented as of this encounter
[2025-09-05 23:53] LABS: Hematocrit 37.3 % (42.0-52.0); Hemoglobin 12.8 g/dl (14.0-18.0); Imm Gran Abs Auto 0.05 X10*3/uL (0.00-0.03); Imm Gran Pct Auto 0.6 % (0.0-0.4); Lymphocytes Absolute Auto 1.0 X10*3/uL (1.2-4.9); Mean Corpuscular HGB Conc 34.3 g/dl (31.0-36.0); Mean Corpuscular Hemoglobin 32.0 pg (27.0-33.0); Mean Corpuscular Volume 93.3 fL (80.0-98.0); NRBC Abs Auto 0.000 X10*3/uL (0.0-0.012); NRBC Pct Auto 0.0 /100WBC (0.0-0.2); Platelet Count 182 X10*3/uL (160-400); Red Blood Count 4.00 X10*6/uL (4.60-5.80); White Blood Count 8.4 X10*3/uL (4.8-10.8)
[2025-09-06 00:09] LABS: Alanine Aminotransferase < 6 U/L (0-40); Albumin Level 3.7 g/dL (3.5-5.0); Alkaline Phosphatase 81 U/L (39-117); Anion Gap 10 (12-20); Aspartate Amino Transferase 29 U/L (5-37); Blood Urea Nitrogen 31 mg/dL (9-16); Calcium 8.8 mg/dL (8.4-10.2); Carbon Dioxide 27 mmol/L (22-29); Chloride 102 mmol/L (96-108); Creatinine Clr Calc Pharmacy 39.9; Estimated Glomerular Filt Rate 54; Magnesium 2.2 mg/dL (1.6-2.6); Potassium 4.1 mmol/L (3.3-5.1); Sodium 135 mmol/L (135-145); Total Protein 6.7 g/dL (6.5-8.0)
[2025-09-06 00:13] LABS: Troponin-I High Sensitivity 13.4 ng/L (<3.5-35.0)
[2025-09-06 00:35] LABS: Resp Syncy Virus RNA Qual PCR NEGATIVE (Negative); SARS COV2 PCR INHOUSE NEGATIVE (Negative)
[2025-09-06 01:52] LABS: Appearance Urine Clear; Glucose Urine UA Negative (Negative); PH 7.0 (5.0-9.0); Specific Gravity - Urine <= 1.005 (1.005-1.025); UMIC TRIGGER UACC YES
[2025-09-06 01:56] LABS: Cannabinoid Screen Urine Not Detected (Not Detect)
[2025-09-06 02:21] LABS: UACC Culture Trigger YES
[2025-09-06 04:23] VITALS: BP 148/52; PULSE 67
[2025-09-06 04:24] VITALS: BP 142/52; PULSE 62
[2025-09-06 04:25] VITALS: BP 182/100; PULSE 70
--- NOTE | 2025-09-06 04:45 | PC.NURSE ---
Pt ambulated 25 feet with 2 assist.
[2025-09-06 05:53] VITALS: BP 121/57; PULSE 62; RESP 16; TEMP 36.6; O2SAT 96
[2025-09-06 06:59] VITALS: BP 121/57; PULSE 62; RESP 16; TEMP 36.6; O2SAT 96
== END 2025-09-06 07:00 | disposition home or self-care (01) ==
PROVIDERS: Emergency Provider Emergency Medicine; PCP Nurse Practitioner Family
DX: I95.1 Orthostatic hypotension (principal); N39.0 Urinary tract infection, site not specified; I10 Essential (primary) hypertension; G20.A1 Parkinson's disease without dyskinesia, without mention of fluctuations; G31.83 Neurocognitive disorder with Lewy bodies; F02.80 Dementia in other diseases classified elsewhere, unspecified severity, without behavioral disturbance, psychotic disturbance, mood disturbance, and anxiety; Z03.818 Encounter for observation for suspected exposure to other biological agents ruled out
CPT/HCPCS: 80048; 80076; 80307; 81001; 83735; 84484; 85025; 87086; 87637; 93005; 96361; 96374; 99285; J0696

== ENCOUNTER → 2025-09-05 22:30 | Outpatient (BNV) | payer OTHER, SELFPAY | PROVIDERS: Emergency Provider Emergency Medicine; PCP Nurse Practitioner Family; Visit Provider Internal Medicine | DX: R00.1 Bradycardia, unspecified (principal) | CPT/HCPCS: 93010 ==

== ENCOUNTER 2025-09-24 03:58 | Inpatient (IN) | payer OTHER, SELFPAY ==
--- OUTSIDE RECORDS SUMMARY | 2025-09-16 14:30 | XMS_ITS | Encounter Summary ---
Author Organization [facility] Address [address] [place] [address] Care Team Providers Care Senior Storage Administrator Name Role Phone Reyna Zuniga NP Primary Care Provider [phone] Encounter Details Date Type Department Care Team (Late st Contact Info) Description 09/16/2025 2:30 PM EST Treatment [facility] [address] [place] [phone] Anastasia Barnes COTA Social History Tobacco Use Types Packs/Day Years Used Date Smoking Tobacco: Former Cigarettes Smokeless Tobacco: Never Comments:Ex-smoker Sex and Gender Information Value Date Recorded Sex Assigned at Not on file Legal Sex Male 9:32 AM EST Gender Identity Not on file Sexual Orientation Not on file documented as of this encounter Progress Notes * BERTRAM Cole - 09/16/2025 2:30 PM EST Par seen at home for therapy session and provision and education on use and function of weighted utensils to assist with minimizing tremors affecting self feeding. Par provided wit both weighted forkand weighted spoon with built up handle. Par demo ability to utilize both during session and statedhe liked them and would be open to continuous use. Par was amb around home without assistive device upon my entry. Par asked why he is not implementing recommendations to amb with device in home for safety. Par responds that he is not using it at alland also states he is not using his tub chair either. When asked why, Par responded with I don't think I need them I am fine. Par did acknowledge falling again and confirms it was in the evening when trying to get to the bathroom and describes moving to quickly then and also at times if the phone rings. Par encouraged to use device bonnie at night as wellas to use slow deliberate transitions from STS and implement therapeutic breathing. Phone calls do not require urgency they can leave a message or possibly call back if it is urgent. Par educated on safety although demo poor carryover attempting to amb without device while carryingitems. This sba underwriter will discuss adding a try to walker to increase possible use with more efficiency. Par encouraged to remain open to interventions to remain safe at home. documented in this encounter Plan of Treatment Upcoming Encounters Date Type Department Care Team (Late st Contact Info) Description 09/26/2025 1:30 PM EST [facility] Home [facility] / [facility] [facility] [place] [facility] [place] [facility] [address] [place] [phone] Asmita Matias 09/26/2025 1:30 PM EST [facility] Assessment [facility] [address] [place] [phone] Fede Rock PT 09/26/2025 5:00 PM EST PACE Home Care / [place] [facility] [address] [place] [phone] Daksha Yates 09/27/2025 8:00 AM EST PACE Home Care / [place] [facility] [address] [place] [phone] Tiana Sibley 09/27/2025 12:30 PM EST PACE Home Care / [place] [facility] [address] [place] [phone] Lata Ford 09/27/2025 5:30 PM EST PACE Home Care / [place] [place] [facility] [address] [place] [address] Daksha Yates 09/28/2025 8:45 AM EST Clinical Support [facility] [address] [place] [address] Federica Quintana LPN 09/28/2025 9:00 AM EST PACE Home Care / [place] [facility] [address] [place] [phone] Melissa Raza 09/28/2025 12:30 PM EST P[facility] Home Care / [place] [facility] [address] [place] [phone] Melissa Raza 09/28/2025 5:30 PM EST PACE Home Care / [place] [facility] [address] [place] [phone] Daksha Yates 09/30/2025 8:30 AM EST PACE Home Care / [place] [facility] [address] [place] [phone] Tiana Sibley 09/30/2025 9:00 AM EST [facility] [address] [place] [phone] Federica Quintana LPN 09/30/2025 12:30 PM EST P[facility] Home Care / [place] [facility] [place] [facility] [address] [place] [phone] Lata Ford 09/30/2025 5:30 PM EST PACE Home Care / [place] [facility] [place] [facility] [address] [place] [phone] Tiana Sibley 10/01/2025 8:30 AM EST PACE Home Care / [place] [facility] [place] [facility] [address] [place] [phone] Tiana Sibley 10/01/2025 12:30 PM EST PACE Home Care / [facility] [place] [facility] [address] [place] [address] Tiana Sibley 10/01/2025 5:30 PM EST PACE Home Care / [facility] [place] [facility] [address] [place] [address] Tiana Sibley 10/02/2025 8:00 AM EST PACE Home Care / [facility] [address] [place] [phone] Daksha Yates 10/02/2025 12:30 PM EST PACE Home Care / [place] [place] [facility] [address] [place] [phone] Daksha Yates 10/02/2025 5:30 PM EST PACE Home Care / [place] [facility] [place] [facility] [address] [place] [phone] Daksha Yates 10/03/2025 8:00 AM EST PACE Home Care / [place] [facility] [place] [facility] [address] [place] [phone] Melissa Raza 10/03/2025 8:45 AM EST [facility] Support [facility] [place] [facility] [address] [place] [address] Federica Quintana LPN 10/03/2025 12:30 PM EST PACE Home Care / [place] [facility] [place] [facility] [address] [place] [phone] Melissa Raza 10/03/2025 5:30 PM EST PACE Home Care / [place] [facility] [place] [facility] [place] [facility] [address] [place] [address] Daksha Yates 10/04/2025 8:00 AM EST PACE Home Care / [place] [facility] [place] [facility] [place] [facility] [address] [place] [address] Tiana Sibley 10/04/2025 12:30 PM EST P[facility] Home Care / [place] [facility] [place] [facility] [address] [place] [address] Lata Ford 10/04/2025 5:30 PM EST PACE Home Care / [place] [facility] [place] [facility] [address] [place] [phone] Daksha Yates 10/05/2025 8:00 AM EST P[facility] Home Care / [place] [facility] [place] [facility] [address] [place] [phone] Melissa Raza 10/05/2025 12:30 PM EST P[facility] Home Care / [place] [facility] [place] [facility] [address] [place] [phone] Melissa Raza 10/05/2025 5:30 PM EST P[facility] Home Care / [place] [facility] [address] [place] [phone] Daksha Yates 10/06/2025 8:00 AM EST PACE Home Care / [place] [facility] [place] [facility] [address] [place] [phone] Tiana Sibley 10/06/2025 12:30 PM EST PACE Home Care / [place] [facility] [place] [facility] [address] [place] [phone] Daksha Yates 10/06/2025 5:30 PM EST P[facility] Home Care / [place] [facility] [address] [place] [address] Daksha Yates 10/07/2025 8:30 AM EST P[facility] Home Care / [place] [facility] [address] [place] [address] Tiana Sibley 10/07/2025 12:30 PM EST PACE Home Care / [place] [facility] [address] [place] [address] Daksha Yates 10/07/2025 5:30 PM EST PACE Home Care / [place] [facility] [address] [place] [address] Tiana Sibley 10/08/2025 8:30 AM EST P[facility] Home Care / [place] [facility] [place] [facility] [address] [place] [address] Tiana Sibley 10/08/2025 12:30 PM EST PACE Home Care / [place] [facility] [place] [facility] [address] [place] [phone] Tiana Sibley 10/08/2025 5:00 PM EST P[facility] Home Care / [place] [facility] [place] [facility] [address] [place] [phone] Tiana Sibley 10/09/2025 8:30 AM EST P[facility] Home Care / [place] [facility] [address] [place] [phone] Brigida Hendricks 10/09/2025 12:30 PM EST P[facility] Home Care / [place] [facility] [address] [place] [phone] Brigida Hendricks 10/09/2025 5:30 PM EST P[facility] Home Care / [place] [facility] [address] [place] [address] Brigida Hendricks 10/10/2025 8:00 AM EST PACE Home Care / [place] [facility] [address] [place] [address] Melissa Raza 10/10/2025 12:30 PM EST P[facility] Home Care / [place] [facility] [place] [facility] [address] [place] [phone] Melissa Raza 10/10/2025 5:30 PM EST P[facility] Home Care / [place] [facility] [address] [place] [phone] Daksha Yates 10/11/2025 8:00 AM EST PACE Home Care / [place] [facility] [address] [place] [phone] Tiana Sibley 10/11/2025 12:30 PM EST PACE Home Care / [place] [facility] [place] [facility] [place] [facility] [address] [place] [phone] Lata Ford 10/11/2025 5:30 PM EST PACE Home Care / [place] [facility] [address] [place] [phone] Daksha Yates 10/12/2025 8:00 AM EST PACE Home Care / [place] [facility] [place] [facility] [address] [place] [phone] Melissa Raza 10/12/2025 12:30 PM EST P[facility] Home Care / [place] [facility] [place] [facility] [address] [place] [phone] Melissa Raza 10/12/2025 5:30 PM EST P[facility] Home Care / [place] [facility] [place] [facility] [address] [place] [address] Daksha Yates 10/13/2025 8:00 AM EST P[facility] Home Care / [place] [facility] [place] [facility] [address] [place] [address] Tiana Sibley 10/13/2025 12:30 PM EST P[facility] Home Care / [place] [facility] [place] [facility] [address] [place] [address] Daksha Yates 10/13/2025 5:30 PM EST P[facility] Home Care / [place] [facility] [place] [facility] [address] [place] [phone] Daksha Yates 10/14/2025 8:30 AM EST P[facility] Home [facility] / [place] [facility] [place] [facility] [address] [place] [phone] Tiana Sibley 10/14/2025 12:30 PM EST P[facility] Home Care / [place] [facility] [place] [facility] [address] [place] [phone] Daksha Yates 10/14/2025 5:30 PM EST P[facility] Home Care / [place] [facility] [place] [facility] [address] [place] [phone] Tiana Sibley 10/15/2025 8:30 AM EST P[facility] Home Care / [place] [facility] [place] [facility] [address] [place] [phone] Tiana Sibley 10/15/2025 12:30 PM EST P[facility] Home Care / [place] [facility] [place] [facility] [address] [place] [phone] Tiana Sibley 10/15/2025 5:30 PM EST P[facility] Home Care / [place] [facility] [place] [facility] [address] [place] [address] Tiana Sibley 10/16/2025 8:00 AM EST P[facility] Home Care / [place] [facility] [place] [facility] [address] [place] [phone] Daksha Yates 10/16/2025 12:30 PM EST P[facility] Home Care / [place] [facility] [place] [facility] [address] [place] [phone] Daksha Yates 10/16/2025 5:30 PM EST P[facility] Home Care / [place] [facility] [place] [facility] [address] [place] [phone] Daksha Yates 10/17/2025 8:00 AM EST P[facility] Home Care / [place] [facility] [place] [facility] [address] [place] [phone] Melissa Raza 10/17/2025 12:30 PM EST P[facility] Home Care / [place] [facility] [place] [facility] [address] [place] [phone] Melissa Raza 10/17/2025 5:30 PM EST P[facility] Home Care / [place] [facility] [place] [facility] [address] [place] [phone] Daksha Yates 10/18/2025 8:00 AM EST P[facility] Home Care / [place] [facility] [place] [facility] [address] [place] [phone] Tiana Sibley 10/18/2025 12:30 PM EST P[facility] Home Care / [place] [facility] [address] [place] [phone] Lata Ford 10/18/2025 5:30 PM EST P[facility] Home Care / [place] [facility] [place] [facility] [address] [place] [address] Daksha Yates 10/19/2025 8:00 AM EST P[facility] Home Care / [place] [facility] [address] [place] [address] Melissa Raza 10/19/2025 12:30 PM EST P[facility] Home Care / [place] [facility] [address] [place] [phone] Melissa Raza 10/19/2025 5:30 PM EST P[facility] Home Care / [place] [facility] [place] [facility] [address] [place] [phone] Daksha Yates 10/20/2025 8:00 AM EST P[facility] Home Care / [place] [facility] [address] [place] [phone] Tiana Sibley 10/20/2025 12:30 PM EST PACE Home Care / [place] [facility] [address] [place] [phone] [facility]/20/[facility]25 5:30 PM EST P[facility] Home [facility] / [place] [facility] [place] [facility] [place] [facility] [address] [place] [phone] [facility]ber[facility] 10/21/2025 8:30 AM EST P[facility] Home [facility] / [place] [facility] [place] [facility] [place] [facility] [address] [place] [phone] Tiana Sibley 10/21/2025 12:30 PM EST P[facility] Home Care / [place] [facility] [place] [facility] [address] [place] [phone] Shilpi Yateschristian 10/21/2025 5:30 PM EST PACE Home Care / [place] [facility] [place] [facility] [address] [place] [address] Tiana Sibley 10/22/2025 8:30 AM EST P[facility] Home Care / [place] [facility] [place] [facility] [address] [place] [address] Tiana Sibley 10/22/2025 12:30 PM EST P[facility] Home Care / [place] [facility] [place] [facility] [address] [place] [phone] Tiana Sibley 10/22/2025 5:00 PM EST P[facility] Home Care / [place] [facility] [place] [facility] [address] [place] [phone] Tiana Sibley 10/23/2025 8:30 AM EST P[facility] Home Care / [place] [facility] [place] [facility] [address] [place] [phone] Brigida Hendricks 10/23/2025 12:30 PM EST P[facility] Home Care / [place] [facility] [place] [facility] [address] [place] [phone] Brigida Hendricks 10/23/2025 5:30 PM EST P[facility] Home Care / [place] [facility] [place] [facility] [address] [place] [phone] Brigida Hendricks 10/24/2025 8:00 AM EST P[facility] Home Care / [place] [facility] [place] [facility] [address] [place] [phone] Melissa Raza 10/24/2025 12:30 PM EST P[facility] Home Care / [place] [facility] [place] [facility] [address] [place] [phone] Melissa Raza 10/24/2025 5:30 PM EST P[facility] Home Care / [place] [facility] [place] [facility] [address] [place] [address] Daksha Yates 10/25/2025 8:00 AM EST P[facility] Home Care / [place] [facility] [place] [facility] [address] [place] [address] Tiana Sibley 10/25/2025 12:30 PM EST P[facility] Home Care / [place] [facility] [place] [facility] [address] [place] [phone] Lata Ford 10/25/2025 5:30 PM EST P[facility] Home Care / [place] [facility] [place] [facility] [place] [facility] [address] [place] [phone] Daksha Yates 10/26/2025 8:00 AM EST [facility] Home [facility] / [place] [facility] [place] [facility] [place] [facility] [address] [place] [phone] Melissa Raza 10/26/2025 12:30 PM EST P[facility] Home Care / [place] [facility] [place] [facility] [address] [place] [phone] Melissa Raza 10/26/2025 5:30 PM EST P[facility] Home [facility] / [place] [facility] [place] [facility] [place] [facility] [address] [place] [phone] Daksha Yates 10/27/2025 8:00 AM EST P[facility] Home Care / [place] [facility] [place] [facility] [place] [facility] [address] [place] [phone] Tiana Sibley 10/27/2025 12:30 PM EST P[facility] Home [facility] / [place] [facility] [place] [facility] [place] [facility] [address] [place] [address] Daksha Yates 10/27/2025 5:30 PM EST P[facility] Home Care / [place] [facility] [place] [facility] [address] [place] [address] Daksha Yates 10/28/2025 8:30 AM EST P[facility] Home [facility] / [place] [facility] [place] [facility] [address] [place] [address] Tiana Sibley 10/28/2025 12:30 PM EST P[facility] Home [facility] / [place] [facility] [place] [facility] [place] [facility] [address] [place] [phone] Daksha Yates 10/28/2025 5:30 PM EST P[facility] Home Care / [place] [facility] [place] [facility] [place] [facility] [address] [place] [phone] Tiana Sibley 10/29/2025 8:30 AM EST P[facility] Home [facility] / [place] [facility] [place] [facility] [place] [facility] [address] [place] [phone] Tiana Sibley 10/29/2025 12:30 PM EST P[facility] Home [facility] / [place] [facility] [place] [facility] [place] [facility] [address] [place] [phone] Tiana Sibley 10/29/2025 5:30 PM EST P[facility] Home [facility] / [place] [facility] [place] [facility] [address] [place] [phone] Tiana Sibley 10/30/2025 8:00 AM EST P[facility] Home [facility] / [place] [facility] [place] [facility] [address] [place] [phone] Daksha Yates 10/30/2025 12:30 PM EST [facility] Home [facility] / [place] [facility] [address] [place] [address] Daksha Yates 10/30/2025 5:30 PM EST [facility] Home Care / [facility] [address] [place] [phone] Daksha Yates 10/31/2025 8:00 AM EST P[facility] Home Care / [facility] [address] [place] [phone] Melissa Raza 10/31/2025 12:30 PM EST P[facility] Home Care / [facility] [address] [place] [phone] Melissa Raza 10/31/2025 5:30 PM EST P[facility] Home [facility] / [facility] [address] [place] [phone] Daksha Yates 11/01/2025 8:00 AM EST P[facility] Home [facility] / [facility] [address] [place] [phone] Tiana Sibley 11/01/2025 12:30 PM EST P[facility] Home [facility] / [facility] [address] [place] [phone] Lata Ford 11/01/2025 5:30 PM EST P[facility] Home [facility] / [place] [facility] [place] [facility] [address] [place] [phone] Daksha Yates 11/02/2025 8:00 AM EST P[facility] Home [facility] / [facility] [address] [place] [phone] Melissa Raza 11/02/2025 12:30 PM EST [facility] Home [facility] / [facility] [address] [place] [address] Melissa Raza 11/02/2025 5:30 PM EST [facility] Home [facility] / [place] [facility] [place] [facility] [address] [place] [address] Daksha Yates 11/03/2025 8:00 AM EST [facility] Home [facility] / [facility] [facility] [address] [place] [phone] Tiana Sibley 11/03/2025 12:30 PM EST P[facility] Home Care / [facility] [place] [facility] [address] [place] [phone] Daksha Yates 11/03/2025 5:30 PM EST P[facility] Home [facility] / [facility] [address] [place] [phone] Daksha Yates 11/04/2025 8:30 AM EST P[facility] Home [facility] / [place] [facility] [place] [facility] [place] [facility] [address] [place] [phone] Tiana Sibley 11/04/2025 12:30 PM EST P[facility] Home [facility] / [place] [facility] [place] [facility] [address] [place] [phone] Daksha Yates 11/04/2025 5:30 PM EST [facility] Home [facility] / [facility] [facility] [address] [place] [phone] Tiana Sibley 11/05/2025 8:30 AM EST [facility] Home [facility] / [facility] [facility] [address] [place] [phone] Tiana Sibley 11/05/2025 12:30 PM EST [facility] Home [facility] / [facility] [facility] [address] [place] [address] Tiana Sibley 11/05/2025 5:00 PM EST [facility] Home [facility] / [facility] [address] [place] [address] Tiana Sibley 11/06/2025 8:30 AM EST [facility] Home [facility] / [facility] [address] [place] [phone] Brigida Hendricks 11/06/2025 12:30 PM EST [facility] Home [facility] / [facility] [address] [place] [phone] Brigida Hendricks 11/06/2025 5:30 PM EST [facility] Home [facility] / [facility] [address] [place] [phone] Brigida Hendricks 11/07/2025 8:00 AM EST [facility] Home [facility] / [place] [facility] [address] [place] [phone] Melissa Raza 11/07/2025 12:30 PM EST P[facility] Home [facility] / [facility] [address] [place] [phone] Melissa Raza 11/07/2025 5:30 PM EST P[facility] Home [facility] / [place] [facility] [address] [place] [phone] Daksha Yates 11/08/2025 8:00 AM EST P[facility] Home [facility] / [place] [facility] [place] [facility] [address] [place] [phone] Tiana Sibley 11/08/2025 12:30 PM EST P[facility] Home [facility] / [facility] [facility] [address] [place] [address] Lata Ford 11/08/2025 5:30 PM EST P[facility] Home [facility] / [facility] [facility] [address] [place] [phone] Trudy, [facility] 11/09/2025 8:00 AM EST P[facility] Home [facility] / [facility] [facility] [place] [facility] [address] [place] [phone] Melissa Raza 11/09/2025 12:30 PM EST [facility] Home [facility] / [place] [facility] [address] [place] [phone] Melissa Raza 11/09/2025 5:30 PM EST [facility] [address] [place] [phone] Trudy Shechristian 11/10/2025 8:00 AM EST [facility] [address] [place] [phone] Tiana Sibley 11/10/2025 12:30 PM EST [facility] [address] [place] [phone] Dansereadaniel, Shechristian 11/10/2025 5:30 PM EST [facility] [address] [place] [phone] Dansereau, Sheana 11/11/2025 8:30 AM EST [facility] [address] [place] [phone] Tiana Sibley 11/11/2025 12:30 PM EST [facility] [address] [place] [phone] DansDaksha harris 11/11/2025 5:30 PM EST [facility] [address] [place] [phone] Tiana Sibley 11/12/2025 8:30 AM EST [facility] [address] [place] [phone] Tiana Sibley 11/12/2025 12:30 PM EST [facility] [place] [facility] [address] [place] [phone] Tiana Sibley 11/12/2025 5:30 PM EST [facility] [address] [place] [phone] Tiana Sibley 11/13/2025 8:00 AM EST [facility] [address] [place] [phone] Dansereau, Shechristian 11/13/2025 12:30 PM EST [facility] [address] [place] [phone] Dansereau, Shechristian 11/13/2025 5:30 PM EST [facility] [place] [facility] [address] [place] [phone] Dansereau, Shechristian 11/14/2025 8:00 AM EST [facility] [place] [facility] [address] [place] [phone] Melissa Raza 11/14/2025 12:30 PM EST [facility] [address] [place] [phone] Melissa Raza 11/14/2025 5:30 PM EST [facility] [address] [place] [phone] Daksha Yates 11/15/2025 8:00 AM EST [facility] [address] [place] [phone] Tiana Sibley 11/15/2025 12:30 PM EST [facility] [address] [place] [phone] Lata Ford 11/15/2025 5:30 PM EST [facility] [address] [place] [phone] Daksha Yates 11/16/2025 8:00 AM EST [facility] [address] [place] [phone] Melissa Raza 11/16/2025 12:30 PM EST [facility] [address] [place] [phone] Melissa Raza 11/16/2025 5:30 PM EST [facility] [address] [place] [phone] Daksha Yates 11/17/2025 8:00 AM EST [facility] [address] [place] [phone] Tiana Sibley 11/17/2025 12:30 PM EST [facility] [address] [place] [phone] Daksha Yates 11/17/2025 5:30 PM EST [facility] [address] [place] [phone] Daksha Yates 11/18/2025 8:30 AM EST [facility] [address] [place] [phone] Tiana Sibley 11/18/2025 12:30 PM EST [facility] [address] [place] [phone] Daksha Yates 11/18/2025 5:30 PM EST [facility] [address] [place] [phone] Tiana Sibley 11/19/2025 8:30 AM EST [facility] [address] [place] [phone] Tiana Sibley 11/19/2025 12:30 PM EST [facility] [address] [place] [phone] Tiana Sibley 11/19/2025 5:00 PM EST [facility] [address] [place] [phone] Tiana Sibley 11/20/2025 8:30 AM EST [facility] [address] [place] [phone] Brigida Hendricks 11/20/2025 12:30 PM EST [facility] [address] [place] [phone] Brigida Hendricks 11/20/2025 5:30 PM EST [facility] [place] [facility] [address] [place] [phone] Brigida Hendricks 11/21/2025 8:00 AM EST [facility] [place] [facility] [address] [place] [phone] Melissa Raza 11/21/2025 12:30 PM EST [facility] [address] [place] [phone] Melissa Raza 11/21/2025 5:30 PM EST [facility] [address] [place] [phone] Daksha Yates 11/22/2025 8:00 AM EST [facility] [address] [place] [phone] Tiana Sibley 11/22/2025 12:30 PM EST [facility] [address] [place] [phone] Lata Ford 11/22/2025 5:30 PM EST [facility] [address] [place] [phone] Daksha Yates documented as of this encounter Visit Diagnoses Not on filedocumented in this encounter Additional Health Concerns Assessment Noted Time PHQ-9 Depression Total Score: 3 03/25/20 11:12 AM EDT documented as of this encounter Care Teams Senior Storage Administrator Relationship Specialty Start Date End Date Reyna Zuniga NP [address] [address] PCP - General Family Medicine 11/06/24 documented as of this encounter
--- OUTSIDE RECORDS SUMMARY | 2025-09-19 08:00 | XMS_ITS | Encounter Summary ---
Author Organization [facility] Address [address] [place] [address] Care Team Providers Care Anatomy Teacher Name Role Phone Reyna Zuniga NP Primary Care Provider [phone] Encounter Details Date Type Department Care Team (Late st Contact Info) Description 09/19/2025 8:00 AM EST PACE Home Care / [facility] [address] [place] [phone] Brigida Hendricks Social History Tobacco Use Types Packs/Day Years [...] In [facility] Services [address] [place] [phone] Asmita Matias 09/26/2025 1:30 PM EST [facility] Assessment [facility] [address] [place] [phone] Fede Rock PT 09/26/2025 5:00 PM EST PACE Home Care / [facility] [place] [facility] [address] [place] [address] Daksha Yates 09/27/2025 8:00 AM EST PACE Home Care / [place] [facility] [place] [facility] [address] [place] [address] Tiana Sibley 09/27/2025 12:30 PM EST PACE Home Care / [place] [facility] [place] [facility] [address] [place] [address] Lata Ford 09/27/2025 5:30 PM EST PACE Home Care / [place] [facility] [place] [facility] [address] [place] [address] Daksha Yates 09/28/2025 8:45 AM EST Clinical Support [facility] [place] [facility] [address] [place] [address] Federica Quintana LPN 09/28/2025 9:00 AM EST PACE Home Care / [facility] [place] [facility] [address] [place] [address] Melissa Raza 09/28/2025 12:30 PM EST PACE Home Care / [facility] [place] [facility] [address] [place] [phone] Melissa Raza 09/28/2025 5:30 PM EST PACE Home Care / [facility] [place] [facility] [address] [place] [address] Daksha Yates 09/30/2025 8:30 AM EST PACE Home Care / [facility] [place] [facility] [address] [place] [address] Tiana Sibley 09/30/2025 9:00 AM EST Clinical Support [facility] [place] [facility] [address] [place] [address] Federica Quintana LPN 09/30/2025 12:30 PM EST PACE Home Care / [facility] [address] [place] [address] Lata Ford 09/30/2025 5:30 PM EST PACE Home Care / [facility] [address] [place] [address] Tiana Sibley 10/01/2025 8:30 AM EST PACE Home Care / [facility] [address] [place] [address] Tiana Sibley 10/01/2025 12:30 PM EST PACE Home Care / [facility] [address] [place] [address] Tiana Sibley 10/01/2025 5:30 PM EST PACE Home Care / [facility] [address] [place] [phone] Tiana Sibley 10/02/2025 8:00 AM EST PACE Home Care / [facility] [address] [place] [phone] Daksha Yates 10/02/2025 12:30 PM EST PACE Home Care / [facility] [address] [place] [phone] Daksha Yates 10/02/2025 5:30 PM EST PACE Home Care / [facility] [address] [place] [address] Daksha Yates 10/03/2025 8:00 AM EST PACE Home Care / [facility] [address] [place] [address] Melissa Raza 10/03/2025 8:45 AM EST [facility] Support [facility] [address] [place] [address] Federica Quintana LPN 10/03/2025 12:30 PM EST PACE Home Care / [facility] [address] [place] [phone] Melissa Raza 10/03/2025 5:30 PM EST PACE Home Care / [facility] [address] [place] [phone] Daksha Yates 10/04/2025 8:00 AM EST PACE Home Care / [facility] Visit [facility] [address] [place] [phone] Tiana Sibley 10/04/2025 12:30 PM EST PACE Home Care / [facility] Visit [facility] [address] [place] [phone] Lata Ford 10/04/2025 5:30 PM EST PACE Home Care / [facility] Visit [facility] [address] [place] [phone] Daksha Yates 10/05/2025 8:00 AM EST PACE Home Care / [facility] Visit [facility] [address] [place] [phone] Melissa Raza 10/05/2025 12:30 PM EST PACE Home Care / [facility] Visit [facility] [address] [place] [phone] Melissa Raza 10/05/2025 5:30 PM EST PACE Home Care / [facility] [place] [facility] [address] [place] [address] Daksha Yates 10/06/2025 8:00 AM EST PACE Home Care / [place] [place] [facility] [address] [place] [address] Tiana Sibley 10/06/2025 12:30 PM EST PACE Home Care / [place] [facility] [place] [facility] [address] [place] [address] Daksha Yates 10/06/2025 5:30 PM EST PACE Home Care / [place] [facility] [place] [facility] [address] [place] [phone] Daksha Yates 10/07/2025 8:30 AM EST PACE Home Care / [place] [place] [facility] [address] [place] [phone] Tiana Sibley 10/07/2025 12:30 PM EST PACE Home Care / [place] [facility] [address] [place] [phone] Daksha Yates 10/07/2025 5:30 PM EST PACE Home Care / [facility] [place] [facility] [address] [place] [phone] Tiana Sibley 10/08/2025 8:30 AM EST PACE Home Care / [facility] [address] [place] [phone] Tiana Sibley 10/08/2025 12:30 PM EST PACE Home Care / [place] [facility] [place] [facility] [address] [place] [phone] Tiana Sibley 10/08/2025 5:00 PM EST PACE Home Care / [place] [facility] [place] [facility] [address] [place] [address] Tiana Sibley 10/09/2025 8:30 AM EST PACE Home Care / [facility] [place] [facility] [address] [place] [phone] Brigida Hendricks 10/09/2025 12:30 PM EST PACE Home Care / [facility] [address] [place] [phone] Brigida Hendricks 10/09/2025 5:30 PM EST PACE Home Care / [facility] [address] [place] [phone] Brigida Hendricks 10/10/2025 8:00 AM EST PACE Home Care / [place] [facility] [address] [place] [phone] Melissa Raza 10/10/2025 12:30 PM EST PACE Home Care / [place] [facility] [place] [facility] [address] [place] [phone] Melissa Raza 10/10/2025 5:30 PM EST PACE Home Care / [facility] [place] [facility] [address] [place] [phone] Daksha Yates 10/11/2025 8:00 AM EST PACE Home Care / [place] [facility] [place] [facility] [address] [place] [phone] Tiana Sibley 10/11/2025 12:30 PM EST PACE Home Care / [place] [facility] [place] [facility] [address] [place] [phone] Lata Samayoa 10/11/2025 5:30 PM EST PACE Home Care / [place] [facility] [place] [facility] [address] [place] [phone] Daksha Yates 10/12/2025 8:00 AM EST PACE Home Care / [place] [facility] [place] [facility] [address] [place] [phone] Melissa Raza 10/12/2025 12:30 PM EST PACE Home Care / [place] [facility] [place] [facility] [address] [place] [phone] Melissa Raza 10/12/2025 5:30 PM EST PACE Home Care / [facility] [place] [facility] [address] [place] [phone] Daksha Yates 10/13/2025 8:00 AM EST PACE Home Care / [facility] [place] [facility] [address] [place] [phone] Tiana Sibley 10/13/2025 12:30 PM EST PACE Home Care / [facility] [place] [facility] [address] [place] [phone] DansDaksha harris 10/13/2025 5:30 PM EST PACE Home Care / [facility] [place] [facility] [address] [place] [phone] [facility]aniel [facility] 10/14/2025 8:30 AM EST PACE Home Care / [facility] [place] [facility] [address] [place] [phone] Tiana Sibley 10/14/2025 12:30 PM EST PACE Home Care / [place] [place] [facility] [address] [place] [phone] Daksha Yates 10/14/2025 5:30 PM EST PACE Home Care / [place] [place] [facility] [address] [place] [address] Tiana Sibley 10/15/2025 8:30 AM EST PACE Home Care / [place] [place] [facility] [address] [place] [address] Tiana Sibley 10/15/2025 12:30 PM EST PACE Home Care / [place] [facility] [place] [facility] [address] [place] [address] Tiana Sibley 10/15/2025 5:30 PM EST PACE Home Care / [place] [facility] [place] [facility] [address] [place] [phone] Tiana Sibley 10/16/2025 8:00 AM EST PACE Home Care / [place] [facility] [place] [facility] [address] [place] [phone] [facility]berly [facility] 10/16/2025 12:30 PM EST PACE Home Care / [facility] [facility] [place] [facility] [address] [place] [phone] Dansereadaniel [facility] 10/16/2025 5:30 PM EST PACE Home Care / [place] [facility] [place] [facility] [address] [place] [phone] Dansereau, [facility] 10/17/2025 8:00 AM EST PACE Home Care / [place] [facility] [place] [facility] [address] [place] [phone] Melissa Raza 10/17/2025 12:30 PM EST PACE Home Care / [place] [facility] [place] [facility] [address] [place] [phone] Melissa Raza 10/17/2025 5:30 PM EST PACE Home Care / [place] [place] [facility] [address] [place] [address] Daksha Yates 10/18/2025 8:00 AM EST PACE Home Care / [place] [place] [facility] [address] [place] [address] Tiana Sibley 10/18/2025 12:30 PM EST PACE Home Care / [facility] [address] [place] [phone] Lata Ford 10/18/2025 5:30 PM EST PACE Home Care / [facility] [place] [facility] [address] [place] [phone] Daksha Yates 10/19/2025 8:00 AM EST PACE Home Care / [facility] [place] [facility] [address] [place] [phone] Melissa Raza 10/19/2025 12:30 PM EST PACE Home Care / [facility] [place] [facility] [address] [place] [phone] Melissa Raza 10/19/2025 5:30 PM EST PACE Home Care / [facility] [address] [place] [phone] Daksha Yates 10/20/2025 8:00 AM EST PACE Home Care / [facility] [address] [place] [phone] Tiana Sibley 10/20/2025 12:30 PM EST PACE Home Care / [facility] [address] [place] [address] [place] [phone] Daksha Yates 10/20/2025 5:30 PM EST PACE Home Care / [facility] [address] [place] [address] Daksha Yates 10/21/2025 8:30 AM EST PACE Home Care / [facility] [place] [facility] [address] [place] [address] Tiana Sibley 10/21/2025 12:30 PM EST PACE Home Care / [facility] [address] [place] [phone] Daksha Yates 10/21/2025 5:30 PM EST PACE Home Care / [facility] [address] [place] [phone] Tiana Sibley 10/22/2025 8:30 AM EST PACE Home Care / [facility] [address] [place] [phone] Tiana Sibley 10/22/2025 12:30 PM EST PACE Home Care / [facility] [address] [place] [phone] Tiana Sibley 10/22/2025 5:00 PM EST PACE Home Care / [facility] [address] [place] [phone] Tiana Sibley 10/23/2025 8:30 AM EST PACE Home Care / [facility] [address] [place] [phone] Brigida Hendricks 10/23/2025 12:30 PM EST PACE Home Care / [facility] [address] [place] [address] Brigida Hendricks 10/23/2025 5:30 PM EST PACE Home Care / [facility] [address] [place] [phone] Brigida Hendricks 10/24/2025 8:00 AM EST PACE Home Care / [facility] [address] [place] [phone] Melissa Raza 10/24/2025 12:30 PM EST PACE Home Care / [facility] [address] [place] [phone] Melissa Raza 10/24/2025 5:30 PM EST PACE Home Care / [place] [place] [facility] [address] [place] [phone] Daksha Yates 10/25/2025 8:00 AM EST PACE Home Care / [facility] [place] [facility] [address] [place] [phone] Tiana Sibley 10/25/2025 12:30 PM EST PACE Home Care / [facility] [address] [place] [phone] Lata Ford 10/25/2025 5:30 PM EST PACE Home Care / [facility] [place] [facility] [address] [place] [phone] Daksha Yates 10/26/2025 8:00 AM EST PACE Home Care / [facility] [address] [place] [phone] Melissa Raza 10/26/2025 12:30 PM EST PACE Home Care / [facility] [place] [facility] [address] [place] [address] Melissa Raza 10/26/2025 5:30 PM EST PACE Home Care / [facility] [address] [place] [phone] Daksha Yates 10/27/2025 8:00 AM EST PACE Home Care / [facility] Visit [facility] [address] [place] [phone] Tiana Sibley 10/27/2025 12:30 PM EST PACE Home Care / [facility] Visit [facility] [address] [place] [phone] Daksha Yates 10/27/2025 5:30 PM EST PACE Home Care / [facility] [address] [place] [phone] Daksha Yates 10/28/2025 8:30 AM EST PACE Home Care / [facility] Visit [facility] [address] [place] [phone] Tiana Sibley 10/28/2025 12:30 PM EST PACE Home Care / [facility] Visit [facility] [address] [place] [phone] Daksha Yates 10/28/2025 5:30 PM EST PACE Home Care / [facility] [address] [place] [phone] Tiana Sibley 10/29/2025 8:30 AM EST PACE Home Care / [facility] [address] [place] [phone] Tiana Sibley 10/29/2025 12:30 PM EST PACE Home Care / [facility] [address] [place] [address] Tiana Sibley 10/29/2025 5:30 PM EST PACE Home Care / [facility] [place] [facility] [address] [place] [address] Tiana Sibley 10/30/2025 8:00 AM EST PACE Home Care / [facility] [place] [facility] [address] [place] [phone] Daksha Yates 10/30/2025 12:30 PM EST PACE Home Care / [facility] [place] [facility] [address] [place] [phone] Daksha Yates 10/30/2025 5:30 PM EST PACE Home Care / [facility] [address] [place] [phone] Daksha Yates 10/31/2025 8:00 AM EST PACE Home Care / [facility] [address] [place] [phone] Melissa Raza 10/31/2025 12:30 PM EST PACE Home Care / [facility] [address] [place] [phone] Melissa Raza 10/31/2025 5:30 PM EST PACE Home Care / [facility] [address] [place] [phone] Daksha Yates 11/01/2025 8:00 AM EST PACE Home Care / [facility] [address] [place] [phone] Tiana Sibley 11/01/2025 12:30 PM EST PACE Home Care / [facility] [place] [facility] [address] [place] [address] Lata Ford 11/01/2025 5:30 PM EST PACE Home Care / [facility] [place] [facility] [address] [place] [address] Trudy, [facility] 11/02/2025 8:00 AM EST PACE Home Care / [facility] [place] [facility] [address] [place] [address] Melissa Raza 11/02/2025 12:30 PM EST PACE Home Care / [facility] [place] [facility] [address] [place] [phone] Melissa Raza 11/02/2025 5:30 PM EST PACE Home Care / [facility] [address] [place] [phone] Trudy, Daksha 11/03/2025 8:00 AM EST PACE Home Care / [facility] [place] [facility] [address] [place] [phone] Tiana Sibley 11/03/2025 12:30 PM EST PACE Home Care / [facility] [place] [facility] [address] [place] [phone] Dansereadaniel, [facility] 11/03/2025 5:30 PM EST PACE Home Care / [facility] [address] [place] [phone] Dansereau, Sheana 11/04/2025 8:30 AM EST PACE Home Care / [facility] [place] [facility] [address] [place] [phone] Tiana Sibley 11/04/2025 12:30 PM EST PACE Home Care / [facility] [address] [place] [phone] Daksha Yates 11/04/2025 5:30 PM EST PACE Home Care / [facility] [address] [place] [phone] Tiana Sibley 11/05/2025 8:30 AM EST PACE Home Care / [facility] [address] [place] [phone] Tiana Sibley 11/05/2025 12:30 PM EST PACE Home Care / [facility] [address] [place] [phone] Tiana Sibley 11/05/2025 5:00 PM EST PACE Home Care / [facility] [address] [place] [phone] Tiana Sibley 11/06/2025 8:30 AM EST PACE Home Care / [facility] [address] [place] [phone] Brigida Hendricks 11/06/2025 12:30 PM EST PACE Home Care / [facility] [address] [place] [phone] Brigida Hendricks 11/06/2025 5:30 PM EST PACE Home Care / [facility] [place] [facility] [address] [place] [phone] Brigida Hendricks 11/07/2025 8:00 AM EST PACE Home Care / [facility] [place] [facility] [address] [place] [phone] Melissa Raza 11/07/2025 12:30 PM EST PACE Home Care / [facility] [place] [facility] [address] [place] [phone] Melissa Raza 11/07/2025 5:30 PM EST PACE Home Care / [facility] [address] [place] [phone] Daksha Yates 11/08/2025 8:00 AM EST PACE Home Care / [facility] [place] [facility] [address] [place] [phone] Tiana Sibley 11/08/2025 12:30 PM EST PACE Home Care / [facility] [place] [facility] [address] [place] [phone] Lata Ford 11/08/2025 5:30 PM EST PACE Home Care / [facility] [place] [facility] [address] [place] [phone] Daksha Yates 11/09/2025 8:00 AM EST PACE Home Care / [facility] [place] [facility] [address] [place] [phone] Melissa Raza 11/09/2025 12:30 PM EST PACE Home Care / [facility] [place] [facility] [address] [place] [phone] Melissa Raza 11/09/2025 5:30 PM EST PACE Home Care / [facility] [place] [facility] [address] [place] [phone] Daksha Yates 11/10/2025 8:00 AM EST PACE Home Care / [facility] [place] [facility] [address] [place] [phone] Tiana Sibley 11/10/2025 12:30 PM EST PACE Home Care / [facility] [place] [facility] [address] [place] [address] Daksha Yates 11/10/2025 5:30 PM EST PACE Home Care / [facility] [place] [facility] [address] [place] [phone] Daksha Yates 11/11/2025 8:30 AM EST PACE Home Care / [facility] [place] [facility] [address] [place] [phone] Tiana Sibley 11/11/2025 12:30 PM EST PACE Home Care / [facility] [place] [facility] [address] [place] [phone] Daksha Yates 11/11/2025 5:30 PM EST PACE Home Care / [facility] [place] [facility] [address] [place] [phone] Tiana Sibley 11/12/2025 8:30 AM EST PACE Home Care / [facility] [place] [facility] [address] [place] [phone] Tiana Sibley 11/12/2025 12:30 PM EST PACE Home Care / [facility] [place] [facility] [address] [place] [phone] Tiana Sibley 11/12/2025 5:30 PM EST PACE Home Care / [facility] [place] [facility] [address] [place] [phone] Tiana Sibley 11/13/2025 8:00 AM EST PACE Home Care / [facility] [place] [facility] [address] [place] [phone] [facility]udy [facility] 11/13/2025 12:30 PM EST PACE Home Care / [facility] [place] [facility] [address] [place] [address] Daksha Yates 11/13/2025 5:30 PM EST PACE Home Care / [facility] [place] [facility] [address] [place] [address] Daksha Yates 11/14/2025 8:00 AM EST PACE Home Care / PACE Home [facility] [address] [place] [address] Melissa Raza 11/14/2025 12:30 PM EST [facility] [address] [place] [phone] Melissa Raza 11/14/2025 5:30 PM EST [facility] [address] [place] [address] Daksha Yates 11/15/2025 8:00 AM EST [facility] [address] [place] [address] Tiana Sibley 11/15/2025 12:30 PM EST [facility] [address] [place] [address] Lata Ford 11/15/2025 5:30 PM EST [facility] [address] [place] [address] Daksha Yates 11/16/2025 8:00 AM EST [facility] / [facility] [place] [facility] [address] [place] [address] Melissa Raza 11/16/2025 12:30 PM EST [facility] / [facility] [address] [place] [address] Melissa Raza 11/16/2025 5:30 PM EST [facility] [place] [facility] [address] [place] [address] Daksha Yates 11/17/2025 8:00 AM EST [facility] [place] [facility] [address] [place] [address] Tiana Sibley 11/17/2025 12:30 PM EST [facility] [place] [facility] [address] [place] [phone] Daksha Yates 11/17/2025 5:30 PM EST [facility] [place] [facility] [address] [place] [phone] Daksha Yates 11/18/2025 8:30 AM EST [facility] [place] [facility] [address] [place] [phone] Tiana Sibley 11/18/2025 12:30 PM EST [facility] [address] [place] [phone] Daksha Yates 11/18/2025 5:30 PM EST [facility] [place] [facility] [address] [place] [phone] Tiana Sibley 11/19/2025 8:30 AM EST [facility] [place] [facility] [address] [place] [address] Tiana Sibley 11/19/2025 12:30 PM EST [facility] [place] [facility] [address] [place] [phone] Tiana Sibley 11/19/2025 5:00 PM EST [facility] [place] [facility] [address] [place] [phone] Tiana Sibley 11/20/2025 8:30 AM EST [facility] [place] [facility] [address] [place] [phone] Brigida Hendricks 11/20/2025 12:30 PM EST [facility] [place] [facility] [address] [place] [phone] Brigida Hendricks 11/20/2025 5:30 PM EST [facility] [place] [facility] [address] [place] [phone] Brigida Hendricks 11/21/2025 8:00 AM EST [facility] [place] [facility] [address] [place] [phone] Melissa Raza 11/21/2025 12:30 PM EST [facility] [address] [place] [phone] Melissa Raza 11/21/2025 5:30 PM EST [facility] [address] [place] [phone] Daksha Yates 11/22/2025 8:00 AM EST [facility] [address] [place] [address] Tiana Sibley 11/22/2025 12:30 PM EST [facility] [address] [place] [address] Lata Ford 11/22/2025 5:30 PM EST [facility] [address] [place] [phone] Daksha Yates documented as of this encounter Visit Diagnoses Not on filedocumented in this encounter Additional Health Concerns Assessment Noted Time PHQ-9 Depression Total Score: 3 03/25/20 11:12 AM EDT documented as of this encounter Care Teams Anatomy Teacher Relationship Specialty Start Date End Date Reyna Zuniga NP [address] [place] [phone] PCP - General Family Medicine 11/06/24 documented as of this encounter
--- OUTSIDE RECORDS SUMMARY | 2025-09-19 13:00 | XMS_ITS | Encounter Summary ---
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 (CMS/HCC V24, CMS/HCC V28); Multiple falls Social History Tobacco Use Types Packs/Day Years Used Date Smoking Tobacco: Former Cigarettes Smokeless Tobacco: Never Comments:Ex-smoker Sex and Gender Information Value Date Recorded Sex Assigned at Not on file Legal Sex Male 9:32 AM EST Gender Identity Not on file Sexual Orientation Not on file documented as of this encounter Last Filed Vital Signs Vital Sign Reading Time Taken Comments Blood Pressure 138/64 09/19/2025 2:38 PM EST Pulse - - Temperature 36.3 C (97.3 F) 09/19/2025 2:38 PM EST Respiratory Rate 18 09/19/2025 2:38 PM EST Oxygen Saturation 98% 09/19/2025 2:38 PM EST Inhaled Oxygen Concentration - - Weight 60.3 kg (133 lb) 09/19/2025 2:38 PM EST Height - - Body Mass Index 21.47 03/30/2025 3:00 PM EDT documented in this encounter Progress Notes * Reyna Zuniga NP - 09/19/2025 3:00 PM ESTAssociated Problem(s): Multiple falls Discussed with son options to try to prevent recurrent falls which are happening mostly overnight. Contributing factors included increased confusion at night secondary to dementia, orthostatic hypotension, and tremors due to parkinson's disease. Will have PT/OT provide bedside commode for PAR. Alsodiscuss with son the possibility of needing a wheelchair to roam around at night. 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 This also increases risk of falls. * Reyna Zuniga NP - 09/19/2025 2:46 PM ESTAssociated Problem(s): Orthostatic hypotension due to Parkinson disease (CMS/HCC V24, CMS/HCC V28) Continue midodrine 3 times a day during the day. Consider adding Florinef noon as it has a longer half-life to provide some night coverage for orthostatic hypotension. Will discuss with neurologist prior to making any more medication changes. * Reyna Zuniga NP - 09/19/2025 1:00 PM EST Subjective Patient ID: Vincenzo Prieto is a 75 y.o. male. Par presents s/p fall this weekend. Son, Blake is present with him today. He reports PAR is getting up on average 3 times to use the bathroom. Has had 2 falls Fall Friday night he fell and hit head and Friday morning feel and hit ribs. 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 Reports pain on left side of ribs with movement. He reports PAR was confused yesterday morning and improved throughout the day. Son reports being athis wits end and concerned about father's safety. PAR takes last set of meds around 6 PM which include midodrine, quetiapine, and carbidopa-levodopa. Review of Systems Constitutional: Negative for fatigue. Respiratory: Negative for cough and shortness of breath. Genitourinary: Positive for frequency and urgency. Nocturia x 3 Neurological: Positive for dizziness, tremors and light-headedness. Psychiatric/Behavioral: Positive for confusion and decreased concentration. Objective Physical Exam Constitutional: General: He is not in acute distress. Appearance: Normal appearance. He is not ill-appearing, toxic-appearing or diaphoretic. Cardiovascular: Rate and Rhythm: Normal rate and regular rhythm. Heart sounds: Normal heart sounds. Pulmonary: Effort: Pulmonary effort is normal. Breath sounds: Normal breath sounds. Chest: Chest wall: No deformity, swelling or tenderness. Musculoskeletal: Cervical back: Neck supple. Right lower leg: No edema. Left lower leg: No edema. Neurological: Mental Status: He is alert. Assessment/Plan Orthostatic hypotension due to Parkinson disease (CMS/HCC V24, CMS/[facility] V28) (Primary) Assessment & Plan: Continue midodrine 3 times a day during the day. Consider adding Florinef noon as it has a longer half-life to provide some night coverage for orthostatic hypotension. Will discuss with neurologist prior to making any more medication changes. 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 This also increases risk of falls. Multiple falls Assessment & Plan: Discussed with son options to try to prevent recurrent falls which are happening mostly overnight. Contributing factors included increased confusion at night secondary to dementia, orthostatic hypotension, and tremors due to parkinson's disease. Will have PT/OT provide bedside commode for PAR. Alsodiscuss with son the possibility of needing a wheelchair to roam around at night. documented in this encounter Plan of Treatment Upcoming Encounters Date Type Department Care Team (Late st Contact Info) Description 09/26/2025 1:30 PM EST [facility] / [facility] [address] [place] [phone] Asmita Matias 09/26/2025 1:30 PM EST [facility] Assessment [facility] [address] [place] [phone] Fede Rock PT 09/26/2025 5:00 PM EST P[facility] Home Care / P[facility] Visit [facility] [address] [place] [phone] Daksha Yates 09/27/2025 8:00 AM EST [facility] Home [facility] / [facility] Visit [facility] [address] [place] [phone] Tiana Sibley 09/27/2025 12:30 PM EST P[facility] Home Care / P[facility] Visit [facility] [address] [place] [phone] Lata Ford 09/27/2025 5:30 PM EST P[facility] Home Care / P[facility] Visit [facility] [address] [place] [phone] Daksha Yates 09/28/2025 8:45 AM EST Clinical Support [facility] [address] [place] [phone] Federica Quintana LPN 09/28/2025 9:00 AM EST [facility] Home [facility] / [facility] Visit [facility] [address] [place] [phone] Melissa Raza 09/28/2025 12:30 PM EST [facility] [place] [facility] [place] [facility] [place] [facility] [address] [place] [phone] Melissa Raza 09/28/2025 5:30 PM EST [facility] Home [facility] / [facility] [place] [facility] [address] [place] [address] Daksha Yates 09/30/2025 8:30 AM EST [facility] / [facility] [place] [facility] [address] [place] [phone] Tiana Sibley 09/30/2025 9:00 AM EST [facility] Support [facility] [address] [place] [phone] Federica Quintana LPN 09/30/2025 12:30 PM EST [facility] Home [facility] / [facility] [place] [facility] [address] [place] [phone] Lata Ford 09/30/2025 5:30 PM EST [facility] Home [facility] / [facility] [address] [place] [phone] Taina Sibley 10/01/2025 8:30 AM EST [facility] Home [facility] / [facility] [place] [facility] [place] [facility] [address] [place] [phone] Tiana Sibley 10/01/2025 12:30 PM EST [facility] Home [facility] / [facility] [address] [place] [phone] Tiana Sibley 10/01/2025 5:30 PM EST [facility] Home [facility] / [facility] [place] [facility] [address] [place] [address] Tiana Sibley 10/02/2025 8:00 AM EST [facility] Home [facility] / [facility] [place] [facility] [place] [facility] [address] [place] [phone] Daksha Yates 10/02/2025 12:30 PM EST [facility] Home [facility] / [facility] [place] [facility] [address] [place] [phone] Daksha Yates 10/02/2025 5:30 PM EST [facility] Home [facility] / [place] [place] [facility] [place] [facility] [address] [place] [phone] Daksha Yates 10/03/2025 8:00 AM EST [facility] Home [facility] / [place] [facility] [place] [facility] [place] [facility] [address] [place] [phone] Melissa Raza 10/03/2025 8:45 AM EST [facility] Support [facility] [address] [place] [address] Federica Quintana LPN 10/03/2025 12:30 PM EST [facility] Home [facility] / [place] [facility] [place] [facility] [place] [facility] [address] [place] [phone] Melissa Raza 10/03/2025 5:30 PM EST [facility] Home [facility] / [facility] [place] [facility] [address] [place] [phone] Daksha Yates 10/04/2025 8:00 AM EST [facility] Home [facility] / [place] [place] [facility] [address] [place] [address] Tiana Sibley 10/04/2025 12:30 PM EST [facility] Home [facility] / [facility] [place] [facility] [address] [place] [address] Lata Ford 10/04/2025 5:30 PM EST [facility] Home [facility] / [facility] [address] [place] [phone] Daksha Yates 10/05/2025 8:00 AM EST [facility] Home [facility] / [facility] [address] [place] [address] Melissa Raza 10/05/2025 12:30 PM EST [facility] Home [facility] / [facility] [address] [place] [address] Melissa Raza 10/05/2025 5:30 PM EST [facility] Home [facility] / [facility] [facility] [place] [facility] [address] [place] [phone] Daksha Yates 10/06/2025 8:00 AM EST [facility] Home [facility] / [place] [address] [place] [phone] Tiana Sibley 10/06/2025 12:30 PM EST P[facility] Home [facility] / [place] [facility] [place] [facility] [address] [place] [phone] Daksha Yates 10/06/2025 5:30 PM EST [facility] Home [facility] / [place] [facility] [place] [facility] [place] [facility] [address] [place] [phone] Daksha Yates 10/07/2025 8:30 AM EST [facility] Home [facility] / [place] [facility] [place] [facility] [address] [place] [address] Tiana Sibley 10/07/2025 12:30 PM EST [facility] Home [facility] / [facility] [address] [place] [phone] Daksha Yates 10/07/2025 5:30 PM EST [facility] Home [facility] / [facility] [address] [place] [phone] Tiana Sibley 10/08/2025 8:30 AM EST [facility] Home [facility] / [facility] [address] [place] [phone] Tiana Sibley 10/08/2025 12:30 PM EST [facility] / [facility] [address] [place] [phone] Tiana Sibley 10/08/2025 5:00 PM EST [facility] Home [facility] / [facility] [address] [place] [phone] Tiana Sibley 10/09/2025 8:30 AM EST [facility] Home [facility] / [facility] [address] [place] [phone] Brigida Hendricks 10/09/2025 12:30 PM EST [facility] / [facility] [address] [place] [phone] Brigida Hendricks 10/09/2025 5:30 PM EST [facility] [address] [place] [phone] Brigida Hendricks 10/10/2025 8:00 AM EST [facility] Home [facility] / [place] [place] [facility] [place] [facility] [address] [place] [phone] Melissa Raza 10/10/2025 12:30 PM EST [facility] Home [facility] / [facility] [place] [facility] [address] [place] [address] Melissa Raza 10/10/2025 5:30 PM EST [facility] Home [facility] / [facility] [place] [facility] [address] [place] [address] Daksha Yates 10/11/2025 8:00 AM EST [facility] Home [facility] / [facility] [place] [facility] [address] [place] [address] Tiana Sibley 10/11/2025 12:30 PM EST [facility] Home [facility] / [place] [facility] [place] [facility] [place] [facility] [address] [place] [phone] Lata Ford 10/11/2025 5:30 PM EST [facility] Home [facility] / [place] [facility] [place] [facility] [place] [facility] [address] [place] [phone] Daksha Yates 10/12/2025 8:00 AM EST [facility] Home [facility] / [place] [facility] [place] [facility] [address] [place] [phone] Melissa Raza 10/12/2025 12:30 PM EST [facility] Home [facility] / [facility] [address] [place] [phone] Melissa Raza 10/12/2025 5:30 PM EST [facility] Home [facility] / [facility] [facility] [address] [place] [phone] Daksha Yates 10/13/2025 8:00 AM EST [facility] / [facility] [address] [place] [phone] Tiana Sibley 10/13/2025 12:30 PM EST [facility] / [facility] [address] [place] [address] Daksha Yates 10/13/2025 5:30 PM EST [facility] Home [facility] / [facility] [address] [place] [address] Daksha Yates 10/14/2025 8:30 AM EST [facility] / [facility] [address] [place] [address] Tiana Sibley 10/14/2025 12:30 PM EST [facility] Home [facility] / [facility] [address] [place] [phone] Daksha Yates 10/14/2025 5:30 PM EST [facility] Home [facility] / [facility] [address] [place] [phone] Tiana Sibley 10/15/2025 8:30 AM EST [facility] Home [facility] / [facility] [address] [place] [phone] Tiana Sibley 10/15/2025 12:30 PM EST [facility] / [facility] [address] [place] [phone] Tiana Sibley 10/15/2025 5:30 PM EST [facility] / [facility] [address] [place] [phone] Tiana Sibley 10/16/2025 8:00 AM EST [facility] / [facility] [address] [place] [phone] Daksha Yates 10/16/2025 12:30 PM EST [facility] / [facility] [address] [place] [phone] Daksha Yates 10/16/2025 5:30 PM EST [facility] Home [facility] / [facility] [address] [place] [phone] Daksha Yates 10/17/2025 8:00 AM EST [facility] / [facility] [address] [place] [phone] Melissa Raza 10/17/2025 12:30 PM EST [facility] / [facility] [address] [place] [phone] Melissa Raza 10/17/2025 5:30 PM EST [facility] / [facility] [address] [place] [phone] Daksha Yates 10/18/2025 8:00 AM EST [facility] / [facility] [facility] [address] [place] [phone] Tiana Sibley 10/18/2025 12:30 PM EST [facility] / [facility] [address] [place] [phone] Lata Ford 10/18/2025 5:30 PM EST [facility] / [facility] [address] [place] [phone] Daksha Yates 10/19/2025 8:00 AM EST [facility] / [place] [facility] [place] [facility] [address] [place] [phone] Melissa Raza 10/19/2025 12:30 PM EST [facility] / [facility] [address] [place] [phone] Melissa Raza 10/19/2025 5:30 PM EST [facility] Home [facility] / [facility] [address] [place] [address] Daksha Yates 10/20/2025 8:00 AM EST [facility] / [facility] [address] [place] [phone] Tiana Sibley 10/20/2025 12:30 PM EST [facility] / [facility] [address] [place] [phone] Daksha Yates 10/20/2025 5:30 PM EST [facility] / [facility] [address] [place] [phone] Daksha Yates 10/21/2025 8:30 AM EST [facility] [address] [place] [phone] Tiana Sibley 10/21/2025 12:30 PM EST [facility] / [facility] [address] [place] [phone] Daksha Yates 10/21/2025 5:30 PM EST [facility] [address] [place] [phone] Tiana Sibley 10/22/2025 8:30 AM EST [facility] Home [facility] / [facility] [place] [facility] [address] [place] [phone] Tiana Sibley 10/22/2025 12:30 PM EST [facility] Home [facility] / [facility] [place] [facility] [address] [place] [address] Tiana Sibley 10/22/2025 5:00 PM EST [facility] / [facility] [address] [place] [phone] Tiana Sibley 10/23/2025 8:30 AM EST [facility] [address] [place] [phone] Brigida Hendricks 10/23/2025 12:30 PM EST [facility] [address] [place] [phone] Brigida Hendricks 10/23/2025 5:30 PM EST [facility] [address] [place] [phone] Brigida Hendricks 10/24/2025 8:00 AM EST [facility] [address] [place] [phone] Melissa Raza 10/24/2025 12:30 PM EST [facility] / [facility] [address] [place] [phone] Melissa Raza 10/24/2025 5:30 PM EST [facility] / [facility] [address] [place] [phone] Daksha Yates 10/25/2025 8:00 AM EST [facility] / [facility] [address] [place] [phone] Tiana Sibley 10/25/2025 12:30 PM EST [facility] / [facility] [address] [place] [phone] Lata Ford 10/25/2025 5:30 PM EST [facility] [address] [place] [phone] Daksha Yates 10/26/2025 8:00 AM EST [facility] [address] [place] [phone] Melissa Raza 10/26/2025 12:30 PM EST [facility] / [facility] [address] [place] [phone] Melissa Raza 10/26/2025 5:30 PM EST [facility] Home [facility] / [facility] [address] [place] [phone] Daksha Yates 10/27/2025 8:00 AM EST [facility] / [facility] [address] [place] [phone] Tiana Sibley 10/27/2025 12:30 PM EST [facility] / [facility] [place] [facility] [address] [place] [phone] Daksha Yates 10/27/2025 5:30 PM EST [facility] / [facility] [address] [place] [phone] DansDaksha harris 10/28/2025 8:30 AM EST [facility] / [facility] [address] [place] [phone] Tiana Sibley 10/28/2025 12:30 PM EST [facility] Home [facility] / [facility] [address] [place] [phone] Daksha Yates 10/28/2025 5:30 PM EST [facility] Home [facility] / [facility] [address] [place] [address] Tiana Sibley 10/29/2025 8:30 AM EST [facility] / [facility] [address] [place] [address] Tiana Sibley 10/29/2025 12:30 PM EST [facility] / [facility] [address] [place] [phone] Tiana Sibley 10/29/2025 5:30 PM EST [facility] / [facility] [address] [place] [phone] Tiana Sibley 10/30/2025 8:00 AM EST [facility] / [facility] [address] [place] [phone] Daksha Yates 10/30/2025 12:30 PM EST [facility] / [facility] [address] [place] [phone] DansDaksha harris 10/30/2025 5:30 PM EST [facility] [address] [place] [phone] Daksha Yates 10/31/2025 8:00 AM EST [facility] [address] [place] [address] Melissa Raza 10/31/2025 12:30 PM EST [facility] / [facility] [address] [place] [address] Melissa Raza 10/31/2025 5:30 PM EST [facility] / [facility] [address] [place] [phone] Daksha Yates 11/01/2025 8:00 AM EST [facility] / [facility] [address] [place] [phone] Tiana Sibley 11/01/2025 12:30 PM EST [facility] / [facility] [address] [place] [phone] Lata Ford 11/01/2025 5:30 PM EST [facility] / [facility] [address] [place] [phone] Daksha Yates 11/02/2025 8:00 AM EST [facility] / [facility] [address] [place] [phone] Melissa Raza 11/02/2025 12:30 PM EST [facility] [address] [place] [phone] Melissa Raza 11/02/2025 5:30 PM EST [facility] / [facility] [place] [facility] [address] [place] [phone] Daksha Yates 11/03/2025 8:00 AM EST [facility] [place] [facility] [address] [place] [address] Tiana Sibley 11/03/2025 12:30 PM EST [facility] [address] [place] [phone] Daksha Yates 11/03/2025 5:30 PM EST PACE [facility] [place] [facility] [address] [place] [phone] Daksha Yates 11/04/2025 8:30 AM EST [facility] [place] [facility] [address] [place] [phone] Tiana Sibley 11/04/2025 12:30 PM EST [facility] [place] [facility] [place] [facility] [address] [place] [phone] Daksha Yates 11/04/2025 5:30 PM EST [facility] [facility] [place] [facility] [place] [facility] [address] [place] [phone] Tiana Sibley 11/05/2025 8:30 AM EST [facility] [facility] [place] [facility] [place] [facility] [address] [place] [phone] Tiana Sibley 11/05/2025 12:30 PM EST [facility] [facility] [place] [facility] [place] [facility] [address] [place] [phone] Tiana Sibley 11/05/2025 5:00 PM EST [facility] [facility] [place] [facility] [place] [facility] [address] [place] [phone] Tiana Sibley 11/06/2025 8:30 AM EST [facility] [facility] [place] [facility] [place] [facility] [address] [place] [phone] Brigida Hendricks 11/06/2025 12:30 PM EST [facility] [place] [facility] [address] [place] [address] Brigida Hendricks 11/06/2025 5:30 PM EST [facility] [place] [facility] [place] [facility] [address] [place] [address] Brigida Hendricks 11/07/2025 8:00 AM EST [facility] [facility] [place] [facility] [address] [place] [phone] Melissa Raza 11/07/2025 12:30 PM EST [facility] [place] [facility] [place] [facility] [address] [place] [phone] Melissa Raza 11/07/2025 5:30 PM EST [facility] [facility] [place] [facility] [place] [facility] [address] [place] [phone] Daksha Yates 11/08/2025 8:00 AM EST [facility] [facility] [place] [facility] [place] [facility] [address] [place] [phone] Tiana Sibley 11/08/2025 12:30 PM EST [facility] [facility] [place] [facility] [place] [facility] [address] [place] [phone] Lata Ford 11/08/2025 5:30 PM EST [facility] [facility] [place] [facility] [place] [facility] [address] [place] [phone] Daksha Yates 11/09/2025 8:00 AM EST [facility] [facility] [place] [facility] [address] [place] [phone] Melissa Raza 11/09/2025 12:30 PM EST [facility] [facility] [place] [facility] [place] [facility] [address] [place] [phone] Melissa Raza 11/09/2025 5:30 PM EST [facility] [facility] [place] [facility] [place] [facility] [address] [place] [phone] Daksha Yates 11/10/2025 8:00 AM EST [facility] [place] [facility] [place] [facility] [place] [facility] [address] [place] [phone] Tiana Sibley 11/10/2025 12:30 PM EST [facility] [place] [facility] [place] [facility] [place] [facility] [address] [place] [phone] [facility]/10/[facility]25 5:30 PM EST [facility] [facility] [place] [facility] [place] [facility] [address] [place] [phone] Daksha Yates 11/11/2025 8:30 AM EST [facility] [place] [facility] [place] [facility] [place] [facility] [address] [place] [phone] Tiana Sibley 11/11/2025 12:30 PM EST [facility] [facility] [place] [facility] [place] [facility] [address] [place] [phone] Daksha Yates 11/11/2025 5:30 PM EST [facility] [facility] [place] [facility] [place] [facility] [address] [place] [phone] Tiana Sibley 11/12/2025 8:30 AM EST [facility] [facility] [place] [facility] [place] [facility] [address] [place] [phone] Tiana Sibley 11/12/2025 12:30 PM EST [facility] [facility] [place] [facility] [place] [facility] [address] [place] [phone] Tiana Sibley 11/12/2025 5:30 PM EST [facility] [facility] [place] [facility] [place] [facility] [address] [place] [phone] Tiana Sibley 11/13/2025 8:00 AM EST [facility] [place] [facility] [place] [facility] [place] [facility] [address] [place] [phone] Daksha Yates 11/13/2025 12:30 PM EST [facility] [place] [facility] [place] [facility] [place] [facility] [address] [place] [phone] Daksha Yates 11/13/2025 5:30 PM EST [facility] [facility] [place] [facility] [place] [facility] [address] [place] [phone] Daksha Yates 11/14/2025 8:00 AM EST [facility] [facility] [place] [facility] [place] [facility] [address] [place] [phone] Melissa Raza 11/14/2025 12:30 PM EST [facility] [facility] [place] [facility] [place] [facility] [address] [place] [phone] Melissa Raza 11/14/2025 5:30 PM EST [facility] [facility] [place] [facility] [place] [facility] [address] [place] [phone] Daksha Yates 11/15/2025 8:00 AM EST [facility] [facility] [place] [facility] [place] [facility] [address] [place] [phone] Tiana Sibley 11/15/2025 12:30 PM EST [facility] [facility] [place] [facility] [place] [facility] [address] [place] [phone] Lata Ford 11/15/2025 5:30 PM EST [facility] [facility] [place] [facility] [place] [facility] [address] [place] [phone] Daksha Yates 11/16/2025 8:00 AM EST [facility] [facility] [place] [facility] [place] [facility] [address] [place] [phone] Melissa Raza 11/16/2025 12:30 PM EST [facility] [facility] [place] [facility] [address] [place] [phone] Melissa Raza 11/16/2025 5:30 PM EST [facility] [facility] [place] [facility] [address] [place] [phone] Daksha Yates 11/17/2025 8:00 AM EST [facility] [facility] [place] [facility] [address] [place] [phone] Tiana Sibley 11/17/2025 12:30 PM EST [facility] [facility] [place] [facility] [address] [place] [phone] Daksha Yates 11/17/2025 5:30 PM EST [facility] [facility] [place] [facility] [place] [facility] [address] [place] [phone] Daksha Yates 11/18/2025 8:30 AM EST [facility] [place] [facility] [address] [place] [address] Tiana Sibley 11/18/2025 12:30 PM EST [facility] [place] [facility] [address] [place] [phone] Daksha Yates 11/18/2025 5:30 PM EST [facility] [place] [facility] [address] [place] [address] Tiana Sibley 11/19/2025 8:30 AM EST [facility] [place] [facility] [address] [place] [phone] Tiana Sibley 11/19/2025 12:30 PM EST [facility] [place] [facility] [address] [place] [phone] Tiana Sibley 11/19/2025 5:00 PM EST [facility] [place] [facility] [address] [place] [phone] Tiana Sibley 11/20/2025 8:30 AM EST [facility] [place] [facility] [address] [place] [phone] Brigida Hendricks 11/20/2025 12:30 PM EST [facility] [place] [facility] [address] [place] [address] Brigida Hendricks 11/20/2025 5:30 PM EST [facility] [place] [facility] [address] [place] [phone] Brigida Hendricks 11/21/2025 8:00 AM EST [facility] [address] [place] [phone] Melissa Raza 11/21/2025 12:30 PM EST [facility] [address] [place] [phone] Melissa Raza 11/21/2025 5:30 PM EST [facility] [address] [place] [phone] Daksha Yates 11/22/2025 8:00 AM EST [facility] [address] [place] [phone] Tiana Sibley 11/22/2025 12:30 PM EST [facility] [address] [place] [phone] Lata Ford 11/22/2025 5:30 PM EST [facility] [address] [place] [phone] Daksha Yates documented as of this encounter Visit Diagnoses Diagnosis Orthostatic hypotension due to Parkinson disease (CMS/HCC V24, CMS/HCC V28)- Primary 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
--- OUTSIDE RECORDS SUMMARY | 2025-09-20 11:30 | XMS_ITS | Encounter Summary ---
Author Organization [facility] Address [address] [place] [address] Care Team Providers Care Telephone Service Representative Name Role Phone Reyna Zuniga NP Primary Care Provider [phone] Encounter Details Date Type Department Care Team (Late st Contact Info) Description 09/20/2025 11:30 AM EST Treatment [facility] [address] [place] [phone] Anastasia Barnes COTA Social History Tobacco Use Types Packs/Day Years Used Date Smoking Tobacco: Former Cigarettes Smokeless Tobacco: Never Comments:Ex-smoker Sex and Gender Information Value Date Recorded Sex Assigned at Not on file Legal Sex Male 9:32 AM EST Gender Identity Not on file Sexual Orientation Not on file documented as of this encounter Progress Notes * BERTRAM Cole - 09/20/2025 11:30 AM EST Par seen at home following a new report of falling backward after getting up in the evening to go to the bathroom, as reported by son Par caught on camera falling backward onto toilet and again in the evening falling into tub after losing balance. Donovan present and responding during session for further clarity. Son fearful of Par being left alone. This session with treating PT present to provide urinal/commode as wellas standard wc for safety. Son states he decided he is going to send father to emergency room for further evaluation. Par seated at kitchen table eating lunch and using standard utensil with difficulty second to tremors, par presented with weighted fork and verbalizes increased ease. documented in this encounter Plan of Treatment Upcoming Encounters Date Type Department Care Team (Late st Contact Info) Description 09/26/2025 1:30 PM EST P[facility] Home Care / [facility] [address] [place] [phone] Asmita Matias 09/26/2025 1:30 PM EST P[facility] Assessment [facility] Physical Therapy [address] [place] [phone] Fede Rock, MARIA T 09/26/2025 5:00 PM EST PACE Home Care / P[facility] Home Visit [facility] [address] [place] [phone] Daksha Yates 09/27/2025 8:00 AM EST PACE Home Care / PACE Home Visit [facility] [address] [place] [phone] Tiana Sibley 09/27/2025 12:30 PM EST PACE Home Care / PACE Home Visit [facility] [address] [place] [phone] Lata Ford 09/27/2025 5:30 PM EST PACE Home Care / PACE Home Visit [facility] [address] [place] [phone] Daksha Yates 09/28/2025 8:45 AM EST Clinical Support [facility] [address] [place] [phone] Federica Quintana LPN 09/28/2025 9:00 AM EST PACE Home Care / PACE Home Visit [facility] [address] [place] [phone] Melissa Raza 09/28/2025 12:30 PM EST P[facility] Home Care / [facility] [address] [place] [phone] Melissa Raza 09/28/2025 5:30 PM EST P[facility] Home Care / [facility] [place] [facility] [address] [place] [phone] Daksha Yates 09/30/2025 8:30 AM EST PACE Home Care / [facility] [place] [facility] [address] [place] [phone] Tiana Sibley 09/30/2025 9:00 AM EST Clinical Support [facility] [place] [facility] [address] [place] [phone] Federica Quintana LPN 09/30/2025 12:30 PM EST PACE Home Care / [facility] [place] [facility] [address] [place] [phone] Lata Ford 09/30/2025 5:30 PM EST PACE Home Care / [facility] [place] [facility] [address] [place] [phone] Tiana Sibley 10/01/2025 8:30 AM EST PACE Home Care / [facility] [place] [facility] [address] [place] [phone] Tiana Sibley 10/01/2025 12:30 PM EST PACE Home Care / [facility] [facility] [place] [facility] [address] [place] [phone] Tiana Sibley 10/01/2025 5:30 PM EST PACE Home Care / [facility] [place] [facility] [address] [place] [phone] Tiana Sibley 10/02/2025 8:00 AM EST PACE Home Care / [facility] [place] [facility] [address] [place] [phone] Daksha Yates 10/02/2025 12:30 PM EST P[facility] Home Care / [facility] [place] [facility] [address] [place] [phone] Daksha Yates 10/02/2025 5:30 PM EST PACE Home Care / [facility] [place] [facility] [address] [place] [phone] Daksha Yates 10/03/2025 8:00 AM EST PACE Home Care / [place] [facility] [place] [facility] [address] [place] [phone] Melissa Raza 10/03/2025 8:45 AM EST [facility] Support [facility] [place] [facility] [address] [place] [phone] Federica Quintana LPN 10/03/2025 12:30 PM EST P[facility] Home Care / [facility] [place] [facility] [address] [place] [phone] Melissa Raza 10/03/2025 5:30 PM EST P[facility] Home Care / [facility] [place] [facility] [address] [place] [phone] Daksha Yates 10/04/2025 8:00 AM EST P[facility] Home Care / [facility] [place] [facility] [address] [place] [phone] Tiana Sibley 10/04/2025 12:30 PM EST PACE Home Care / [facility] [place] [facility] [address] [place] [phone] Lata Ford 10/04/2025 5:30 PM EST PACE Home Care / [facility] [place] [facility] [address] [place] [phone] Daksha Yates 10/05/2025 8:00 AM EST P[facility] Home Care / [facility] [place] [facility] [address] [place] [phone] Melissa Raza 10/05/2025 12:30 PM EST P[facility] Home Care / [facility] [place] [facility] [address] [place] [phone] Melissa Raza 10/05/2025 5:30 PM EST P[facility] Home Care / [facility] [place] [facility] [address] [place] [phone] Daksha Yates 10/06/2025 8:00 AM EST P[facility] Home Care / [facility] [place] [facility] [address] [place] [phone] Tiana Sibley 10/06/2025 12:30 PM EST P[facility] Home [facility] / [facility] [facility] [place] [facility] [address] [place] [phone] [facility] 10/06/[facility]25 5:30 PM EST [facility] / [facility] [place] [facility] [address] [place] [phone] [facility] 10/07/2025 8:30 AM EST P[facility] Home [facility] / [facility] [place] [facility] [address] [place] [phone] Tiana Sibley 10/07/2025 12:30 PM EST P[facility] Home Care / [place] [facility] [place] [facility] [address] [place] [phone] KeshaDaksha harris 10/07/2025 5:30 PM EST P[facility] Home Care / [place] [facility] [place] [facility] [address] [place] [phone] Tiana Sibley 10/08/2025 8:30 AM EST P[facility] Home Care / [place] [facility] [place] [facility] [address] [place] [phone] Tiana Sibley 10/08/2025 12:30 PM EST P[facility] Home Care / [place] [place] [facility] [address] [place] [phone] Tiana Sibley 10/08/2025 5:00 PM EST P[facility] Home Care / [facility] [place] [facility] [address] [place] [phone] Tiana Sibley 10/09/2025 8:30 AM EST P[facility] Home Care / [facility] [place] [facility] [address] [place] [phone] Brigida Hendricks 10/09/2025 12:30 PM EST P[facility] Home Care / [place] [facility] [place] [facility] [address] [place] [phone] Brigida Hendricks 10/09/2025 5:30 PM EST P[facility] Home Care / [place] [facility] [place] [facility] [address] [place] [phone] Brigida Hendricks 10/10/2025 8:00 AM EST P[facility] Home Care / [facility] [facility] [place] [facility] [address] [place] [phone] Melissa Raza 10/10/2025 12:30 PM EST P[facility] Home Care / [facility] [place] [facility] [address] [place] [phone] Melissa Raza 10/10/2025 5:30 PM EST P[facility] Home Care / [facility] [place] [facility] [address] [place] [phone] Daksha Yates 10/11/2025 8:00 AM EST P[facility] Home Care / [facility] [place] [facility] [address] [place] [phone] Tiana Sibley 10/11/2025 12:30 PM EST P[facility] Home Care / [facility] [place] [facility] [address] [place] [phone] Lata Ford 10/11/2025 5:30 PM EST P[facility] Home Care / [place] [facility] [place] [facility] [address] [place] [phone] Daksha Yates 10/12/2025 8:00 AM EST P[facility] Home Care / [facility] [facility] [place] [facility] [address] [place] [phone] Melissa Raza 10/12/2025 12:30 PM EST P[facility] Home Care / [facility] [facility] [place] [facility] [address] [place] [phone] Melissa Raza 10/12/2025 5:30 PM EST P[facility] Home Care / [facility] [place] [facility] [address] [place] [phone] Daksha Yates 10/13/2025 8:00 AM EST P[facility] Home Care / [place] [facility] [place] [facility] [address] [place] [phone] Tiana Sibley 10/13/2025 12:30 PM EST P[facility] Home Care / [facility] [place] [facility] [address] [place] [phone] Daksha Yates 10/13/2025 5:30 PM EST P[facility] Home Care / [place] [facility] [place] [facility] [address] [place] [phone] Daksha Yates 10/14/2025 8:30 AM EST P[facility] Home Care / [facility] [place] [facility] [address] [place] [phone] Tiana Sibley 10/14/2025 12:30 PM EST P[facility] Home Care / [facility] [place] [facility] [address] [place] [phone] Daksha Yates 10/14/2025 5:30 PM EST PACE Home Care / [place] [facility] [place] [facility] [address] [place] [phone] Tiana Sibley 10/15/2025 8:30 AM EST PACE Home Care / [place] [facility] [place] [facility] [address] [place] [phone] Tiana Sibley 10/15/2025 12:30 PM EST PACE Home Care / [place] [facility] [place] [facility] [address] [place] [phone] Tiana Sibley 10/15/2025 5:30 PM EST PACE Home Care / [facility] [place] [facility] [address] [place] [phone] Tiana Sibley 10/16/2025 8:00 AM EST PACE Home Care / [facility] [place] [facility] [address] [place] [phone] Daksha Yates 10/16/2025 12:30 PM EST P[facility] Home Care / [facility] [place] [facility] [address] [place] [phone] Daksha Yates 10/16/2025 5:30 PM EST PACE Home Care / [facility] [place] [facility] [address] [place] [phone] Daksha Yates 10/17/2025 8:00 AM EST P[facility] Home Care / [facility] [place] [facility] [address] [place] [phone] Melissa Raza 10/17/2025 12:30 PM EST P[facility] Home Care / [facility] [address] [place] [phone] Melissa Raza 10/17/2025 5:30 PM EST PACE Home Care / [facility] [place] [facility] [address] [place] [phone] Daksha Yates 10/18/2025 8:00 AM EST P[facility] Home Care / [place] [facility] [place] [facility] [address] [place] [phone] Tiana Sibley 10/18/2025 12:30 PM EST P[facility] Home Care / [facility] [place] [facility] [address] [place] [phone] Lata Ford 10/18/2025 5:30 PM EST [facility] Home Care / [facility] [place] [facility] [address] [place] [phone] Daksha Yates 10/19/2025 8:00 AM EST P[facility] Home Care / [facility] [place] [facility] [address] [place] [phone] Melissa Raza 10/19/2025 12:30 PM EST P[facility] Home Care / [facility] [place] [facility] [address] [place] [phone] Melissa Raza 10/19/2025 5:30 PM EST P[facility] Home Care / [facility] [place] [facility] [address] [place] [phone] Daksha Yates 10/20/2025 8:00 AM EST P[facility] Home Care / [facility] [place] [facility] [address] [place] [phone] Tiana Sibley 10/20/2025 12:30 PM EST P[facility] Home Care / [facility] [place] [facility] [address] [place] [phone] Daksha Yates 10/20/2025 5:30 PM EST [facility] Home Care / [facility] [place] [facility] [address] [place] [phone] Daksha Yates 10/21/2025 8:30 AM EST [facility] Home [facility] / [facility] [place] [facility] [address] [place] [phone] Tiana Sibley 10/21/2025 12:30 PM EST P[facility] Home Care / [facility] [place] [facility] [address] [place] [phone] Daksha Yates 10/21/2025 5:30 PM EST P[facility] Home Care / [facility] [place] [facility] [address] [place] [phone] Tiana Sibley 10/22/2025 8:30 AM EST P[facility] Home Care / [facility] [place] [facility] [address] [place] [phone] Tiana Sibley 10/22/2025 12:30 PM EST P[facility] Home Care / [facility] [place] [facility] [address] [place] [phone] Tiana Sibley 10/22/2025 5:00 PM EST P[facility] Home Care / [facility] [place] [facility] [address] [place] [phone] Tiana Sibley 10/23/2025 8:30 AM EST PACE Home Care / [facility] [place] [facility] [address] [place] [phone] Brigida Hendricks 10/23/2025 12:30 PM EST P[facility] Home Care / [facility] [place] [facility] [address] [place] [phone] Brigida Hendricks 10/23/2025 5:30 PM EST P[facility] Home Care / [facility] [place] [facility] [address] [place] [phone] Brigida Hendricks 10/24/2025 8:00 AM EST P[facility] Home Care / [facility] [place] [facility] [address] [place] [phone] Melissa Raza 10/24/2025 12:30 PM EST P[facility] Home Care / [facility] [place] [facility] [address] [place] [phone] Melissa Raza 10/24/2025 5:30 PM EST P[facility] Home Care / [facility] [place] [facility] [address] [place] [phone] Daksha Yates 10/25/2025 8:00 AM EST [facility] Home [facility] / [facility] [place] [facility] [address] [place] [phone] Tiana Sibley 10/25/2025 12:30 PM EST P[facility] Home Care / [facility] [place] [facility] [address] [place] [phone] Lata Ford 10/25/2025 5:30 PM EST P[facility] Home Care / [facility] [place] [facility] [address] [place] [phone] Daksha Yates 10/26/2025 8:00 AM EST P[facility] Home Care / [facility] [place] [facility] [address] [place] [phone] Melissa Raza 10/26/2025 12:30 PM EST P[facility] Home Care / [facility] [place] [facility] [address] [place] [phone] Melissa Raza 10/26/2025 5:30 PM EST P[facility] Home Care / [facility] [place] [facility] [address] [place] [phone] Daksha Yates 10/27/2025 8:00 AM EST P[facility] Home Care / [facility] [place] [facility] [address] [place] [phone] Tiana Sibley 10/27/2025 12:30 PM EST P[facility] Home Care / [facility] [place] [facility] [address] [place] [phone] [facility] 10/27/2025 5:30 PM EST [facility] Home [facility] / [facility] [place] [facility] [address] [place] [phone] Dansereau, [facility] 10/28/2025 8:30 AM EST P[facility] Home Care / [facility] [place] [facility] [address] [place] [phone] Tiana Sibley 10/28/2025 12:30 PM EST P[facility] Home [facility] / [facility] [place] [facility] [address] [place] [phone] DansDaksha harris 10/28/2025 5:30 PM EST [facility] Home [facility] / [facility] [place] [facility] [address] [place] [phone] Tiana Sibley 10/29/2025 8:30 AM EST P[facility] Home Care / [facility] [place] [facility] [address] [place] [phone] Tiana Sibley 10/29/2025 12:30 PM EST P[facility] Home Care / [facility] [place] [facility] [address] [place] [phone] Tiana Sibley 10/29/2025 5:30 PM EST P[facility] Home Care / [facility] [place] [facility] [address] [place] [phone] Tiana Sibley 10/30/2025 8:00 AM EST P[facility] Home Care / [facility] [place] [facility] [address] [place] [phone] Dansereau, [facility] 10/30/2025 12:30 PM EST P[facility] Home Care / [facility] [place] [facility] [address] [place] [phone] Dansereau, [facility] 10/30/2025 5:30 PM EST P[facility] Home Care / [facility] [place] [facility] [address] [place] [phone] Dansereau, [facility] 10/31/2025 8:00 AM EST P[facility] Home Care / [facility] [place] [facility] [address] [place] [phone] Melissa Raza 10/31/2025 12:30 PM EST P[facility] Home Care / [facility] [place] [facility] [address] [place] [phone] Melissa Raza 10/31/2025 5:30 PM EST P[facility] Home Care / [facility] [place] [facility] [address] [place] [phone] Daksha Yates 11/01/2025 8:00 AM EST [facility] Home Care / [facility] [place] [facility] [address] [place] [phone] Tiana Sibley 11/01/2025 12:30 PM EST P[facility] Home Care / [facility] [place] [facility] [address] [place] [phone] Lata Ford 11/01/2025 5:30 PM EST [facility] Home Care / [facility] [place] [facility] [address] [place] [phone] Daksha Yates 11/02/2025 8:00 AM EST [facility] Home Care / [facility] [place] [facility] [address] [place] [phone] Melissa Raza 11/02/2025 12:30 PM EST P[facility] Home Care / [facility] [place] [facility] [address] [place] [phone] Melissa Raza 11/02/2025 5:30 PM EST P[facility] Home Care / [facility] [place] [facility] [address] [place] [phone] Daksha Yates 11/03/2025 8:00 AM EST P[facility] Home Care / [facility] [address] [place] [address] [place] [phone] Tiana Sibley 11/03/2025 12:30 PM EST P[facility] Home Care / [facility] [place] [facility] [address] [place] [phone] Daksha Yates 11/03/2025 5:30 PM EST P[facility] Home Care / [facility] [address] [place] [phone] Daksha Yaets 11/04/2025 8:30 AM EST [facility] Home Care / [facility] [place] [facility] [address] [place] [phone] Tiana Sibley 11/04/2025 12:30 PM EST P[facility] Home Care / [facility] [place] [facility] [address] [place] [phone] Daksha Yates 11/04/2025 5:30 PM EST P[facility] Home Care / [facility] [place] [facility] [address] [place] [phone] Tiana Sibley 11/05/2025 8:30 AM EST P[facility] Home Care / [facility] [place] [facility] [address] [place] [phone] Tiana Sibley 11/05/2025 12:30 PM EST P[facility] Home Care / [facility] [place] [facility] [address] [place] [phone] Tiana Sibley 11/05/2025 5:00 PM EST P[facility] Home Care / [facility] [place] [facility] [address] [place] [phone] Tiana Sibley 11/06/2025 8:30 AM EST P[facility] Home Care / [facility] [place] [facility] [address] [place] [phone] Brigida Hendricks 11/06/2025 12:30 PM EST P[facility] Home Care / [facility] [address] [place] [phone] Brigida Hendricks 11/06/2025 5:30 PM EST P[facility] Home Care / [facility] [place] [facility] [address] [place] [phone] Brigida Hendricks 11/07/2025 8:00 AM EST P[facility] Home [facility] / [facility] [place] [facility] [address] [place] [phone] Melissa Raza 11/07/2025 12:30 PM EST P[facility] Home [facility] / [facility] [address] [place] [phone] Melissa Raza 11/07/2025 5:30 PM EST P[facility] Home [facility] / [facility] [place] [facility] [address] [place] [phone] Daksha Yates 11/08/2025 8:00 AM EST P[facility] Home Care / [facility] [place] [facility] [address] [place] [phone] Tiana Sibley 11/08/2025 12:30 PM EST P[facility] Home [facility] / [facility] [place] [facility] [address] [place] [phone] Lata Ford 11/08/2025 5:30 PM EST P[facility] Home [facility] / [facility] [place] [facility] [address] [place] [phone] Daksha Yates 11/09/2025 8:00 AM EST P[facility] Home [facility] / [facility] [address] [place] [phone] Melissa Raza 11/09/2025 12:30 PM EST [facility] Home [facility] / [facility] [address] [place] [phone] Melissa Raza 11/09/2025 5:30 PM EST P[facility] Home Care / [facility] [address] [place] [phone] Daksha Yates 11/10/2025 8:00 AM EST PACE Home Care / [facility] [address] [place] [phone] Tiana Sibley 11/10/2025 12:30 PM EST PACE Home Care / [facility] [address] [place] [phone] [facility]/10/2025 5:30 PM EST P[facility] Home Care / [facility] [address] [place] [phone] Daksha Yates 11/11/2025 8:30 AM EST [facility] [address] [place] [phone] Tiana Sibley 11/11/2025 12:30 PM EST [facility] / [facility] [address] [place] [phone] Daksha Yates 11/11/2025 5:30 PM EST [facility] / [facility] Visit [facility] [address] [place] [phone] Tiana Sibley 11/12/2025 8:30 AM EST [facility] / [facility] [address] [place] [phone] Tiana Sibley 11/12/2025 12:30 PM EST [facility] / [facility] [address] [place] [phone] Tiana Sibley 11/12/2025 5:30 PM EST [facility] / [facility] [address] [place] [phone] Tiana Sibley 11/13/2025 8:00 AM EST [facility] / [facility] [address] [place] [phone] Daksha Yates 11/13/2025 12:30 PM EST [facility] / [facility] [address] [place] [phone] Daksha Yates 11/13/2025 5:30 PM EST [facility] / [facility] [address] [place] [phone] Daksha Yates 11/14/2025 8:00 AM EST [facility] / [facility] [address] [place] [phone] Melissa Raza 11/14/2025 12:30 PM EST [facility] / [facility] [address] [place] [phone] Melissa Raza 11/14/2025 5:30 PM EST [facility] / [facility] [address] [place] [phone] Daksha Yates 11/15/2025 8:00 AM EST [facility] / [facility] [address] [place] [phone] Tiana Sibley 11/15/2025 12:30 PM EST [facility] / [facility] [address] [place] [phone] Lata Ford 11/15/2025 5:30 PM EST [facility] / [facility] [address] [place] [phone] Daksha Yates 11/16/2025 8:00 AM EST [facility] / [facility] [address] [place] [phone] Melissa Raza 11/16/2025 12:30 PM EST [facility] / [facility] [address] [place] [phone] Melissa Raza 11/16/2025 5:30 PM EST [facility] / [facility] [address] [place] [phone] Daksha Yates 11/17/2025 8:00 AM EST [facility] / [facility] [address] [place] [phone] Tiana Sibley 11/17/2025 12:30 PM EST [facility] / [facility] [address] [place] [phone] Daksha Yates 11/17/2025 5:30 PM EST [facility] / [facility] [address] [place] [phone] Daksha Yates 11/18/2025 8:30 AM EST [facility] / [facility] [place] [facility] [address] [place] [phone] Tiana Sibley 11/18/2025 12:30 PM EST [facility] / [facility] [address] [place] [phone] Daksha Yates 11/18/2025 5:30 PM EST [facility] / [facility] [address] [place] [phone] Tiana Sibley 11/19/2025 8:30 AM EST [facility] / [facility] [address] [place] [phone] Tiana Sibley 11/19/2025 12:30 PM EST [facility] / [facility] [address] [place] [phone] Tiana Sibley 11/19/2025 5:00 PM EST [facility] / [facility] [address] [place] [phone] Tiana Sibley 11/20/2025 8:30 AM EST [facility] / [facility] [address] [place] [phone] Brigida Hendricks 11/20/2025 12:30 PM EST [facility] / [facility] [address] [place] [phone] Brigida Hendricks 11/20/2025 5:30 PM EST [facility] / [facility] [address] [place] [phone] Brigida Hendricks 11/21/2025 8:00 AM EST [facility] / [facility] [address] [place] [phone] Melissa Raza 11/21/2025 12:30 PM EST [facility] / [facility] [address] [place] [phone] Melissa Raza 11/21/2025 5:30 PM EST [facility] / [facility] [address] [place] [phone] Daksha Yates 11/22/2025 8:00 AM EST [facility] / [facility] [address] [place] [phone] Tiana Sibley 11/22/2025 12:30 PM EST [facility] / [facility] [address] [place] [phone] Lata Ford 11/22/2025 5:30 PM EST [facility] / [facility] [address] [place] [phone] Daksha Yates documented as of this encounter Visit Diagnoses Not on filedocumented in this encounter Additional Health Concerns Assessment Noted Time PHQ-9 Depression Total Score: 3 03/25/20 11:12 AM EDT documented as of this encounter Care Teams Telephone Service Representative Relationship Specialty Start Date End Date Reyna Zuniga NP [address] [address] PCP - General Family Medicine 11/06/24 documented as of this encounter
--- OUTSIDE RECORDS SUMMARY | 2025-09-20 12:30 | XMS_ITS | Encounter Summary ---
Author Organization 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 Name Role Phone Reyna Zuniga NP Primary Care Provider [phone] Encounter Details Date Type Department Care Team (Late st Contact Info) Description 09/20/2025 12:30 PM EST PACE Home Care / PACE Home Visit [facility] [address] [place] [phone] Lata Ford Social History Tobacco Use Types [...] In [facility] [address] [place] [phone] Asmita Matias 09/26/2025 1:30 PM EST [facility] Assessment [facility] [address] [place] [phone] Fede Rock PT 09/26/2025 5:00 PM EST PACE Home Care / [facility] Visit [facility] [address] [place] [address] Daksha Yates 09/27/2025 8:00 AM EST PACE Home Care / [facility] Home Visit [facility] [place] [facility] [address] [place] [address] Tiana Sibley 09/27/2025 12:30 PM EST PACE Home Care / [facility] Home Visit [facility] [place] [facility] [address] [place] [address] Lata Ford 09/27/2025 5:30 PM EST PACE Home Care / [facility] Home Visit [facility] [place] [facility] [address] [place] [address] Daksha Yates 09/28/2025 8:45 AM EST Clinical Support [facility] [address] [place] [address] Federica Quintana LPN 09/28/2025 9:00 AM EST PACE Home Care / [facility] Home Visit [facility] [place] [facility] [address] [place] [phone] Melissa Raza 09/28/2025 12:30 PM EST PACE Home Care / [facility] Visit [facility] [place] [facility] [address] [place] [phone] Melissa Raza 09/28/2025 5:30 PM EST PACE Home Care / [facility] Visit [facility] [place] [facility] [address] [place] [address] Daksha Yates 09/30/2025 8:30 AM EST PACE Home Care / [facility] [place] [facility] [address] [place] [address] Tiana Sibley 09/30/2025 9:00 AM EST Clinical Support [facility] [address] [place] [address] Federica Quintana LPN 09/30/2025 12:30 PM EST PACE Home Care / PACE Home Visit [facility] [address] [place] [address] Lata Ford 09/30/2025 5:30 PM EST PACE Home Care / PACE Home Visit [facility] [address] [place] [address] Tiana Sibley 10/01/2025 8:30 AM EST PACE Home Care / PACE Home Visit [facility] [address] [place] [address] Tiana Sibley 10/01/2025 12:30 PM EST PACE Home Care / PACE Home Visit [facility] [address] [place] [address] Tiana Sibley 10/01/2025 5:30 PM EST PACE Home Care / PACE Home Visit [facility] [address] [place] [address] Tiana Sibley 10/02/2025 8:00 AM EST PACE Home Care / PACE Home Visit [facility] [address] [place] [address] Daksha Yates 10/02/2025 12:30 PM EST PACE Home Care / PACE Home Visit [facility] [address] [place] [address] Daksha Yates 10/02/2025 5:30 PM EST PACE Home Care / PACE Home Visit [facility] [address] [place] [address] Daksha Yates 10/03/2025 8:00 AM EST PACE Home Care / PACE Home Visit [facility] [place] [facility] [address] [place] [address] Melisas Raza 10/03/2025 8:45 AM EST Clinical Support [facility] [address] [place] [phone] Federica Quintana LPN 10/03/2025 12:30 PM EST PACE Home Care / PACE Home Visit [facility] [address] [place] [phone] Melissa Raza 10/03/2025 5:30 PM EST PACE Home Care / PACE Home Visit [facility] [address] [place] [phone] Daksha Yates 10/04/2025 8:00 AM EST PACE Home Care / PACE Home Visit [facility] [address] [place] [phone] Tiana Sibley 10/04/2025 12:30 PM EST PACE Home Care / PACE Home Visit [facility] [address] [place] [phone] Lata Ford 10/04/2025 5:30 PM EST PACE Home Care / PACE Home Visit [facility] [address] [place] [phone] Daksha Yates 10/05/2025 8:00 AM EST PACE Home Care / PACE Home Visit [facility] [address] [place] [phone] Melissa Raza 10/05/2025 12:30 PM EST PACE Home Care / PACE Home Visit [facility] [address] [place] [phone] Melissa Raza 10/05/2025 5:30 PM EST PACE Home Care / [facility] [place] [facility] [address] [place] [address] Daksha Yates 10/06/2025 8:00 AM EST PACE Home Care / [facility] Visit [facility] [place] [facility] [address] [place] [address] Tiana Sibley 10/06/2025 12:30 PM EST PACE Home Care / [facility] Visit [facility] [place] [facility] [address] [place] [address] Daksha Yates 10/06/2025 5:30 PM EST PACE Home Care / [facility] Visit [facility] [place] [facility] [address] [place] [phone] Daksha Yates 10/07/2025 8:30 AM EST PACE Home Care / [facility] Visit [facility] [place] [facility] [address] [place] [phone] Tiana Sibley 10/07/2025 12:30 PM EST PACE Home Care / [facility] Visit [facility] [place] [facility] [address] [place] [phone] Daksha Yates 10/07/2025 5:30 PM EST PACE Home Care / [facility] [place] [facility] [address] [place] [phone] Tiana Sibley 10/08/2025 8:30 AM EST PACE Home Care / [facility] Visit [facility] [place] [facility] [address] [place] [phone] Tiana Sibley 10/08/2025 12:30 PM EST PACE Home Care / [facility] [place] [facility] [address] [place] [phone] Tiana Sibley 10/08/2025 5:00 PM EST PACE Home Care / [facility] Visit [facility] [place] [facility] [address] [place] [address] Tiana Sibley 10/09/2025 8:30 AM EST PACE Home Care / [facility] Visit [facility] [place] [facility] [address] [place] [address] Brigida Hendricks 10/09/2025 12:30 PM EST PACE Home Care / [facility] Visit [facility] [place] [facility] [address] [place] [address] Brigida Hendricks 10/09/2025 5:30 PM EST PACE Home Care / [facility] Visit [facility] [place] [facility] [address] [place] [phone] Brigida Hendricks 10/10/2025 8:00 AM EST PACE Home Care / [facility] Visit [facility] [place] [facility] [address] [place] [phone] Melissa Raza 10/10/2025 12:30 PM EST PACE Home Care / [facility] Visit [facility] [place] [facility] [address] [place] [phone] Melissa Raza 10/10/2025 5:30 PM EST PACE Home Care / [facility] Visit [facility] [place] [facility] [address] [place] [phone] Daksha Yates 10/11/2025 8:00 AM EST PACE Home Care / [facility] [place] [facility] [address] [place] [phone] Tiana Sibley 10/11/2025 12:30 PM EST PACE Home Care / [facility] Visit [facility] [place] [facility] [address] [place] [phone] Lata Ford 10/11/2025 5:30 PM EST PACE Home Care / [facility] Visit [facility] [place] [facility] [address] [place] [phone] Daksha Yates 10/12/2025 8:00 AM EST PACE Home Care / [facility] Visit [facility] [place] [facility] [address] [place] [phone] Melissa Raza 10/12/2025 12:30 PM EST PACE Home Care / [facility] Home Visit [facility] [place] [facility] [address] [place] [phone] Melissa Raza 10/12/2025 5:30 PM EST PACE Home Care / [facility] Visit [facility] [place] [facility] [address] [place] [phone] Daksha Yates 10/13/2025 8:00 AM EST PACE Home Care / [facility] Visit [facility] [place] [facility] [address] [place] [phone] Tiana Sibley 10/13/2025 12:30 PM EST PACE Home Care / [facility] Visit [facility] [place] [facility] [address] [place] [phone] Daksha Yates 10/13/2025 5:30 PM EST PACE Home Care / [facility] Visit [facility] [place] [facility] [address] [place] [phone] Daksha Yates 10/14/2025 8:30 AM EST PACE Home Care / [facility] [place] [facility] [address] [place] [phone] Tiana Sibley 10/14/2025 12:30 PM EST PACE Home Care / [facility] Visit [facility] [place] [facility] [address] [place] [phone] Daksha Yates 10/14/2025 5:30 PM EST PACE Home Care / [facility] Home Visit [facility] [place] [facility] [address] [place] [address] Tiana Sibley 10/15/2025 8:30 AM EST PACE Home Care / [facility] Visit [facility] [place] [facility] [address] [place] [address] Taina Sibley 10/15/2025 12:30 PM EST PACE Home Care / [facility] Visit [facility] [place] [facility] [address] [place] [phone] Tiana Sibley 10/15/2025 5:30 PM EST PACE Home Care / [facility] [place] [facility] [address] [place] [phone] Tiana Sibley 10/16/2025 8:00 AM EST PACE Home Care / [facility] [place] [facility] [address] [place] [phone] [facility] 10/16/2025 12:30 PM EST PACE Home Care / [facility] Visit [facility] [place] [facility] [address] [place] [phone] [facility]readaniel [facility] 10/16/2025 5:30 PM EST PACE Home Care / [facility] Visit [facility] [place] [facility] [address] [place] [phone] Dansereau, [facility] 10/17/2025 8:00 AM EST PACE Home Care / [facility] Visit [facility] [place] [facility] [address] [place] [phone] Melissa Raza 10/17/2025 12:30 PM EST PACE Home Care / [facility] Visit [facility] [place] [facility] [address] [place] [phone] Melissa Raza 10/17/2025 5:30 PM EST PACE Home Care / [facility] Visit [facility] [place] [facility] [address] [place] [phone] Daksha Yates 10/18/2025 8:00 AM EST PACE Home Care / [facility] Visit [facility] [place] [facility] [address] [place] [phone] Tiana Sibley 10/18/2025 12:30 PM EST PACE Home Care / [facility] Visit [facility] [place] [facility] [address] [place] [phone] Lata Ford 10/18/2025 5:30 PM EST PACE Home Care / [facility] Visit [facility] [place] [facility] [address] [place] [phone] Daksha Yates 10/19/2025 8:00 AM EST PACE Home Care / [facility] Visit [facility] [place] [facility] [address] [place] [phone] Melissa Raza 10/19/2025 12:30 PM EST PACE Home Care / [facility] Visit [facility] [place] [facility] [address] [place] [phone] Melissa Raza 10/19/2025 5:30 PM EST PACE Home Care / [facility] Visit [facility] [place] [facility] [address] [place] [phone] Daksha Yates 10/20/2025 8:00 AM EST PACE Home Care / [facility] Visit [facility] [place] [facility] [address] [place] [phone] Tiana Sibley 10/20/2025 12:30 PM EST PACE Home Care / [facility] Visit [facility] [place] [facility] [address] [place] [phone] Daksha Yates 10/20/2025 5:30 PM EST PACE Home Care / [facility] [place] [facility] [address] [place] [address] Daksha Yates 10/21/2025 8:30 AM EST PACE Home Care / [facility] Visit [facility] [place] [facility] [address] [place] [address] Tiana Sibley 10/21/2025 12:30 PM EST PACE Home Care / [facility] Visit [facility] [place] [facility] [address] [place] [address] Daksha Yates 10/21/2025 5:30 PM EST PACE Home Care / [facility] Visit [facility] [place] [facility] [address] [place] [address] Tiana Sibley 10/22/2025 8:30 AM EST PACE Home Care / [facility] Visit [facility] [address] [place] [address] Tiana Sibley 10/22/2025 12:30 PM EST PACE Home Care / [facility] [address] [place] [address] Tiana Sibley 10/22/2025 5:00 PM EST PACE Home Care / [facility] [place] [facility] [address] [place] [address] Tiana Sibley 10/23/2025 8:30 AM EST PACE Home Care / [facility] [place] [facility] [address] [place] [address] Brigida Hendricks 10/23/2025 12:30 PM EST PACE Home Care / [facility] Visit [facility] [place] [facility] [address] [place] [address] Brigida Hendricks 10/23/2025 5:30 PM EST PACE Home Care / [facility] [place] [facility] [address] [place] [phone] Brigida Hendricks 10/24/2025 8:00 AM EST PACE Home Care / [facility] [address] [place] [address] Melissa Raza 10/24/2025 12:30 PM EST PACE Home Care / [facility] [place] [facility] [address] [place] [phone] Melissa Raza 10/24/2025 5:30 PM EST PACE Home Care / [facility] [place] [facility] [address] [place] [phone] Daksha Yates 10/25/2025 8:00 AM EST PACE Home Care / [facility] [place] [facility] [address] [place] [phone] Tiana Sibley 10/25/2025 12:30 PM EST PACE Home Care / [facility] [place] [facility] [address] [place] [phone] Lata Ford 10/25/2025 5:30 PM EST PACE Home Care / [facility] [place] [facility] [address] [place] [phone] Daksha Yates 10/26/2025 8:00 AM EST PACE Home Care / [facility] [place] [facility] [address] [place] [phone] Melissa Raza 10/26/2025 12:30 PM EST PACE Home Care / [facility] [place] [facility] [address] [place] [address] Melissa Raza 10/26/2025 5:30 PM EST PACE Home Care / P[facility] Home Visit [facility] [address] [place] [address] Daksha Yates 10/27/2025 8:00 AM EST PACE Home Care / P[facility] Home Visit [facility] [address] [place] [phone] Tiana Sibley 10/27/2025 12:30 PM EST PACE Home Care / PACE Home Visit [facility] [address] [place] [phone] Daksha Yates 10/27/2025 5:30 PM EST PACE Home Care / P[facility] Home Visit [facility] [address] [place] [phone] Daksha Yates 10/28/2025 8:30 AM EST PACE Home Care / PACE Home Visit [facility] [address] [place] [phone] Tiana Sibley 10/28/2025 12:30 PM EST PACE Home Care / PACE Home Visit [facility] [address] [place] [phone] Daksha Yates 10/28/2025 5:30 PM EST PACE Home Care / [facility] [address] [place] [phone] Tiana Sibley 10/29/2025 8:30 AM EST PACE Home Care / [facility] [address] [place] [phone] Tiana Sibley 10/29/2025 12:30 PM EST PACE Home Care / [facility] [place] [facility] [address] [place] [address] Tiana Sibley 10/29/2025 5:30 PM EST PACE Home Care / [facility] [address] [place] [address] Tiana Sibley 10/30/2025 8:00 AM EST PACE Home Care / [facility] [place] [facility] [address] [place] [phone] Daksha Yates 10/30/2025 12:30 PM EST PACE Home Care / [facility] [place] [facility] [address] [place] [phone] Daksha Yates 10/30/2025 5:30 PM EST PACE Home Care / [facility] [place] [facility] [address] [place] [phone] Daksha Yates 10/31/2025 8:00 AM EST PACE Home Care / [facility] [place] [facility] [address] [place] [phone] Melissa Raza 10/31/2025 12:30 PM EST PACE Home Care / [facility] [place] [facility] [address] [place] [phone] Melissa Raza 10/31/2025 5:30 PM EST PACE Home Care / [facility] [place] [facility] [address] [place] [phone] Daksha Yates 11/01/2025 8:00 AM EST PACE Home Care / [facility] [place] [facility] [address] [place] [phone] Tiana Sibley 11/01/2025 12:30 PM EST PACE Home Care / [facility] [address] [place] [address] Lata Ford 11/01/2025 5:30 PM EST PACE Home Care / [facility] [address] [place] [address] Trudy, [facility] 11/02/2025 8:00 AM EST PACE Home Care / [facility] [address] [place] [address] Melissa Raza 11/02/2025 12:30 PM EST PACE Home Care / [facility] Visit [facility] [place] [facility] [address] [place] [address] Melissa Raza 11/02/2025 5:30 PM EST PACE Home Care / [facility] Visit [facility] [address] [place] [phone] Danskimberly, Daksha 11/03/2025 8:00 AM EST PACE Home Care / [facility] Visit [facility] [place] [facility] [address] [place] [phone] Tiana Sibley 11/03/2025 12:30 PM EST PACE Home Care / [facility] [address] [place] [phone] Dansereadaniel, [facility] 11/03/2025 5:30 PM EST PACE Home Care / [facility] [address] [place] [phone] Dansereau, Sheana 11/04/2025 8:30 AM EST PACE Home Care / [facility] [address] [place] [address] Tiana Sibley 11/04/2025 12:30 PM EST PACE Home Care / [facility] [address] [place] [phone] Daksha Yates 11/04/2025 5:30 PM EST PACE Home Care / [facility] [address] [place] [phone] Tiana Sibley 11/05/2025 8:30 AM EST PACE Home Care / [facility] [address] [place] [phone] Tiana Sibley 11/05/2025 12:30 PM EST PACE Home Care / [facility] [place] [facility] [address] [place] [phone] Tiana Sibley 11/05/2025 5:00 PM EST PACE Home Care / [facility] [address] [place] [phone] Tiana Sibley 11/06/2025 8:30 AM EST PACE Home Care / [facility] [address] [place] [phone] Brigida Hendricks 11/06/2025 12:30 PM EST PACE Home Care / [facility] [address] [place] [phone] Brigida Hendricks 11/06/2025 5:30 PM EST PACE Home Care / [facility] [address] [place] [phone] Brigida Hendricks 11/07/2025 8:00 AM EST PACE Home Care / [facility] [address] [place] [phone] Melissa Raza 11/07/2025 12:30 PM EST PACE Home Care / [facility] [address] [place] [phone] Melissa Raza 11/07/2025 5:30 PM EST PACE Home Care / [facility] [address] [place] [phone] Daksha Yates 11/08/2025 8:00 AM EST PACE Home Care / [facility] [address] [place] [phone] Tiana Sibley 11/08/2025 12:30 PM EST PACE Home Care / [facility] [place] [facility] [address] [place] [phone] Lata Ford 11/08/2025 5:30 PM EST PACE Home Care / [facility] [address] [place] [phone] Daksha Yates 11/09/2025 8:00 AM EST PACE Home Care / [facility] [place] [facility] [address] [place] [phone] Melissa Raza 11/09/2025 12:30 PM EST PACE Home Care / [facility] [place] [facility] [address] [place] [phone] Melissa Raza 11/09/2025 5:30 PM EST PACE Home Care / [facility] [address] [place] [phone] Daksha Yates 11/10/2025 8:00 AM EST PACE Home Care / [facility] [place] [facility] [address] [place] [phone] Tiana Sibley 11/10/2025 12:30 PM EST PACE Home Care / [facility] [place] [facility] [address] [place] [phone] Daksha Yates 11/10/2025 5:30 PM EST PACE Home Care / [facility] [address] [place] [phone] Daksha Yates 11/11/2025 8:30 AM EST PACE Home Care / [facility] [address] [place] [phone] Tiana Sibley 11/11/2025 12:30 PM EST PACE Home Care / [facility] [place] [facility] [address] [place] [phone] Daksha Yates 11/11/2025 5:30 PM EST PACE Home Care / [facility] [place] [facility] [address] [place] [phone] Tiana Sibley 11/12/2025 8:30 AM EST PACE Home Care / [facility] [address] [place] [phone] Tiana Sibley 11/12/2025 12:30 PM EST PACE Home Care / [facility] Services [address] [place] [phone] Tiana Sibley 11/12/2025 5:30 PM EST [facility] / [facility] [address] [place] [phone] Tiana Sibley 11/13/2025 8:00 AM EST [facility] / [facility] [address] [place] [phone] [facility] 11/13/2025 12:30 PM EST [facility] / [facility] [address] [place] [phone] Daksha Yates 11/13/2025 5:30 PM EST [facility] / [facility] [place] [facility] [address] [place] [phone] [facility] 11/14/2025 8:00 AM EST [facility] / [facility] [place] [facility] [address] [place] [phone] Melissa Raza 11/14/2025 12:30 PM EST [facility] / [facility] [address] [place] [phone] Melissa Raza 11/14/2025 5:30 PM EST [facility] / [facility] [place] [facility] [address] [place] [phone] [facility] 11/15/2025 8:00 AM EST [facility] / [facility] [place] [facility] [address] [place] [phone] Tiana Sibley 11/15/2025 12:30 PM EST [facility] / [facility] [place] [facility] [address] [place] [phone] Lata Ford 11/15/2025 5:30 PM EST [facility] / [facility] [address] [place] [phone] Trudy [facility] 11/16/2025 8:00 AM EST [facility] / [facility] [place] [facility] [address] [place] [phone] Melissa Raza 11/16/2025 12:30 PM EST [facility] / [facility] [place] [facility] [address] [place] [phone] Melissa Raza 11/16/2025 5:30 PM EST [facility] / [facility] [place] [facility] [address] [place] [phone] Daksha Yates 11/17/2025 8:00 AM EST [facility] / [facility] [place] [facility] [address] [place] [phone] Tiana Sibley 11/17/2025 12:30 PM EST [facility] / [facility] [place] [facility] [address] [place] [phone] Daksha Yates 11/17/2025 5:30 PM EST [facility] / [facility] [place] [facility] [address] [place] [phone] Daksha Yates 11/18/2025 8:30 AM EST [facility] / [facility] [place] [facility] [address] [place] [phone] Tiana Sibley 11/18/2025 12:30 PM EST [facility] / [facility] [place] [facility] [address] [place] [phone] Daksha Yates 11/18/2025 5:30 PM EST [facility] / [facility] [address] [place] [phone] Tiana Sibley 11/19/2025 8:30 AM EST [facility] / [facility] [place] [facility] [address] [place] [phone] Tiana Sibley 11/19/2025 12:30 PM EST [facility] / [facility] [place] [facility] [address] [place] [phone] Tiana Sibley 11/19/2025 5:00 PM EST [facility] / [facility] [place] [facility] [address] [place] [phone] Tiana Sibley 11/20/2025 8:30 AM EST [facility] / [facility] [place] [facility] [address] [place] [phone] Brigida Hendricks 11/20/2025 12:30 PM EST [facility] / [facility] [place] [facility] [address] [place] [phone] Brigida Hendricks 11/20/2025 5:30 PM EST [facility] / [facility] [place] [facility] [address] [place] [phone] Brigida Hendricks 11/21/2025 8:00 AM EST [facility] / [facility] [address] [place] [phone] Melissa Raza 11/21/2025 12:30 PM EST [facility] / [facility] [address] [place] [phone] Melissa Raza 11/21/2025 5:30 PM EST [facility] / [facility] [address] [place] [phone] Daksha Yates 11/22/2025 8:00 AM EST [facility] / [facility] [address] [place] [phone] Tiana Sibley 11/22/2025 12:30 PM EST [facility] / [facility] [address] [place] [phone] Lata Ford 11/22/2025 5:30 PM EST [facility] / [facility] [address] [place] [phone] Daksha Yates documented as of this encounter Visit Diagnoses Not on filedocumented in this encounter Additional Health Concerns Assessment Noted Time PHQ-9 Depression Total Score: 3 03/25/20 11:12 AM EDT documented as of this encounter 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
--- OUTSIDE RECORDS SUMMARY | 2025-09-20 12:45 | XMS_ITS | Encounter Summary ---
Author Organization [facility] Address [address] [place] [address] Care Team Providers Care Airport Operations Coordinator Name Role Phone Reyna Zuniga BAR STEWARD Primary Care Provider [phone] Encounter Details Date Type Department Care Team (Late st Contact Info) Description 09/20/2025 12:45 PM EST Treatment [facility] [address] [place] [phone] Fede Rock, PT Social History Tobacco Use Types Packs/Day Years Used Date Smoking Tobacco: Former Cigarettes Smokeless Tobacco: Never Comments:Ex-smoker Sex and Gender Information Value Date Recorded Sex Assigned at Not on file Legal Sex Male 9:32 AM EST Gender Identity Not on file Sexual Orientation Not on file documented as of this encounter Progress Notes * Fede Rock PT - 09/20/2025 12:45 PM EST PT co-visit with BURDEN to address falls Therapist arrived to perform PT Eval, discuss need for wheelchair and commode to decrease risk for falls. Angel was sitting up eating his lunch and his son was on the phone with PACE sales representative aircraft. Angel was observed getting up and ambulating without any instability to and from sink. Angel not interested in equipment as he doesn't use the walker in home. Angel son reports that his Dad had 2 more falls la stnight. PT interviewed angel and he was was not aware of full details of falls. He had two additional falls where he hit his head. Small laceration noted to be scapped over on top oh head. Falls reports being generated by another staff member that was told about it just prior to PT arrival. Son completed phone call and he reports that he will be calling an ambulance to take his Dad to ER for assessment as he has seem to have some cognitive changes and is unsafe to be left home alone due to multiple falls. Last fall son reports he fell back into tub and may have hit his head. Support provided. Eval not completed as par going to ER to be assessed per rec of [employer] Staff.Equipment not left with par at this time. PT to follow par through [facility] for PT needs. documented in this encounter Plan of Treatment Upcoming Encounters Date Type Department Care Team (Late st Contact Info) Description 09/26/2025 1:30 PM EST P[facility] Home [facility] / [facility] [place] [facility] [place] [facility] [address] [place] [phone] Asmita Matias 09/26/2025 1:30 PM EST [facility] [address] [place] [phone] Fede Rock, PT 09/26/2025 5:00 PM EST P[facility] Home [facility] / [facility] [place] [facility] [place] [facility] [address] [place] [phone] Daksha Yates 09/27/2025 8:00 AM EST P[facility] Home [facility] / [facility] [place] [facility] [place] [facility] [address] [place] [phone] Tiana Sibley 09/27/2025 12:30 PM EST P[facility] Home [facility] / [facility] [place] [facility] [address] [place] [phone] Lata Ford 09/27/2025 5:30 PM EST P[facility] Home [facility] / [facility] [place] [facility] [address] [place] [phone] Daksha Yates 09/28/2025 8:45 AM EST Clinical Support [facility] [address] [place] [address] Federica Quintana LPN 09/28/2025 9:00 AM EST P[facility] Home [facility] / [facility] [place] [facility] [address] [place] [phone] Melissa Raza 09/28/2025 12:30 PM EST [facility] Home [facility] / [facility] [place] [facility] [address] [place] [phone] Melissa Raza 09/28/2025 5:30 PM EST [facility] Home [facility] / [facility] [place] [facility] [address] [place] [phone] Daksha Yates 09/30/2025 8:30 AM EST P[facility] Home [facility] / [place] [place] [facility] [place] [facility] [address] [place] [phone] Tiana Sibley 09/30/2025 9:00 AM EST [facility] [address] [place] [phone] Federica Quintana LPN 09/30/2025 12:30 PM EST [facility] / [place] [facility] [place] [facility] [place] [facility] [address] [place] [phone] Lata Ford 09/30/2025 5:30 PM EST [facility] Home [facility] / [facility] [place] [facility] [address] [place] [phone] Tiana Sibley 10/01/2025 8:30 AM EST [facility] Home [facility] / [place] [facility] [place] [facility] [place] [facility] [address] [place] [phone] Tiana Sibley 10/01/2025 12:30 PM EST P[facility] Home [facility] / [place] [place] [facility] [address] [place] [address] Tiana Sibley 10/01/2025 5:30 PM EST [facility] Home [facility] / [facility] [place] [facility] [address] [place] [address] Tiana Sibley 10/02/2025 8:00 AM EST [facility] / [place] [place] [facility] [address] [place] [phone] Daksha Yates 10/02/2025 12:30 PM EST P[facility] Home Care / [facility] [place] [facility] [address] [place] [phone] Daksha Yates 10/02/2025 5:30 PM EST P[facility] Home [facility] / [place] [place] [facility] [place] [facility] [address] [place] [phone] Daksha Yates 10/03/2025 8:00 AM EST [facility] Home [facility] / [place] [place] [facility] [place] [facility] [address] [place] [phone] Melissa Raza 10/03/2025 8:45 AM EST Clinical Support [facility] [place] [facility] [address] [place] [phone] Federica Quintana LPN 10/03/2025 12:30 PM EST [facility] Home [facility] / [facility] [place] [facility] [address] [place] [phone] Melissa Raza 10/03/2025 5:30 PM EST [facility] Home [facility] / [place] [facility] [place] [facility] [address] [place] [phone] Daksha Yates 10/04/2025 8:00 AM EST [facility] Home [facility] / [place] [facility] [place] [facility] [address] [place] [phone] Tiana Sibley 10/04/2025 12:30 PM EST [facility] Home [facility] / [place] [place] [facility] [address] [place] [phone] Lata Ford 10/04/2025 5:30 PM EST [facility] Home [facility] / [place] [facility] [place] [facility] [place] [facility] [address] [place] [phone] Daksha Yates 10/05/2025 8:00 AM EST [facility] / [place] [facility] [place] [facility] [address] [place] [phone] Melissa Raza 10/05/2025 12:30 PM EST [facility] Home [facility] / [place] [facility] [place] [facility] [place] [facility] [address] [place] [phone] Melissa Raza 10/05/2025 5:30 PM EST [facility] Home [facility] / [place] [facility] [place] [facility] [address] [place] [phone] Daksha Yates 10/06/2025 8:00 AM EST [facility] Home [facility] / [place] [facility] [place] [facility] [address] [place] [phone] Tiana Sibley 10/06/2025 12:30 PM EST [facility] Home [facility] / [place] [facility] [place] [facility] [place] [facility] [address] [place] [phone] Daksha Yates 10/06/2025 5:30 PM EST [facility] Home [facility] / [place] [facility] [place] [facility] [address] [place] [phone] Daksha Yates 10/07/2025 8:30 AM EST [facility] Home [facility] / [place] [facility] [place] [facility] [address] [place] [address] Tiana Sibley 10/07/2025 12:30 PM EST P[facility] Home [facility] / [place] [facility] [place] [facility] [place] [facility] [address] [place] [phone] Daksha Yates 10/07/2025 5:30 PM EST P[facility] Home [facility] / [place] [facility] [place] [facility] [address] [place] [phone] Tiana Sibley 10/08/2025 8:30 AM EST [facility] Home [facility] / [place] [facility] [place] [facility] [place] [facility] [address] [place] [phone] Tiana Sibley 10/08/2025 12:30 PM EST [facility] Home [facility] / [place] [facility] [place] [facility] [place] [facility] [address] [place] [phone] Tiana Sibley 10/08/2025 5:00 PM EST [facility] Home [facility] / [place] [facility] [place] [facility] [place] [facility] [address] [place] [phone] Tiana Sibley 10/09/2025 8:30 AM EST P[facility] Home [facility] / [place] [facility] [place] [facility] [place] [facility] [address] [place] [phone] Brigida Hendricks 10/09/2025 12:30 PM EST [facility] Home [facility] / [place] [facility] [place] [facility] [place] [facility] [address] [place] [phone] Brigida Hendricks 10/09/2025 5:30 PM EST [facility] Home [facility] / [place] [facility] [place] [facility] [address] [place] [phone] Brigida Hendricks 10/10/2025 8:00 AM EST [facility] Home [facility] / [place] [facility] [place] [facility] [address] [place] [phone] Melissa Raza 10/10/2025 12:30 PM EST [facility] Home [facility] / [place] [facility] [place] [facility] [address] [place] [phone] Melissa Raza 10/10/2025 5:30 PM EST P[facility] Home [facility] / [place] [facility] [place] [facility] [address] [place] [phone] Daksha Yates 10/11/2025 8:00 AM EST P[facility] Home [facility] / [place] [facility] [place] [facility] [place] [facility] [address] [place] [phone] Tiana Sibley 10/11/2025 12:30 PM EST P[facility] Home [facility] / [place] [facility] [place] [facility] [place] [facility] [address] [place] [phone] Lata Ford 10/11/2025 5:30 PM EST P[facility] Home [facility] / [place] [facility] [place] [facility] [place] [facility] [address] [place] [phone] Daksha Yates 10/12/2025 8:00 AM EST P[facility] Home [facility] / [place] [facility] [place] [facility] [place] [facility] [address] [place] [phone] Melissa Raza 10/12/2025 12:30 PM EST P[facility] Home [facility] / [place] [facility] [place] [facility] [place] [facility] [address] [place] [phone] Melissa Raza 10/12/2025 5:30 PM EST P[facility] Home [facility] / [place] [facility] [place] [facility] [address] [place] [phone] Trudy, [facility] 10/13/2025 8:00 AM EST P[facility] Home [facility] / [place] [facility] [place] [facility] [address] [place] [phone] Tiana Sibley 10/13/2025 12:30 PM EST P[facility] Home [facility] / [place] [facility] [place] [facility] [address] [place] [phone] [facility] 10/13/2025 5:30 PM EST P[facility] / [place] [facility] [place] [facility] [place] [facility] [address] [place] [phone] Dansereadaniel, [facility] 10/14/2025 8:30 AM EST P[facility] Home [facility] / [place] [facility] [place] [facility] [place] [facility] [address] [place] [phone] Tiana Sibley 10/14/2025 12:30 PM EST P[facility] Home [facility] / [place] [facility] [place] [facility] [address] [place] [phone] [facility]ber[facility] 10/14/2025 5:30 PM EST P[facility] Home [facility] / [place] [facility] [place] [facility] [address] [place] [phone] Tiana Sibley 10/15/2025 8:30 AM EST [facility] Home [facility] / [place] [facility] [place] [facility] [address] [place] [phone] Tiana Sibley 10/15/2025 12:30 PM EST [facility] Home [facility] / [place] [facility] [place] [facility] [place] [facility] [address] [place] [phone] Tiana Sibley 10/15/2025 5:30 PM EST P[facility] Home [facility] / [place] [facility] [place] [facility] [place] [facility] [address] [place] [phone] Tiana Sibley 10/16/2025 8:00 AM EST PACE Home Care / [facility] [place] [facility] [address] [place] [phone] Daksha Yates 10/16/2025 12:30 PM EST PACE Home Care / [facility] [place] [facility] [address] [place] [phone] [facility] 10/16/2025 5:30 PM EST P[facility] Home [facility] / [facility] [place] [facility] [address] [place] [phone] [facility] 10/17/2025 8:00 AM EST P[facility] Home [facility] / [facility] [place] [facility] [address] [place] [phone] Melissa Raza 10/17/2025 12:30 PM EST P[facility] Home [facility] / [facility] [place] [facility] [address] [place] [phone] Melissa Raza 10/17/2025 5:30 PM EST P[facility] Home [facility] / [facility] [place] [facility] [address] [place] [phone] [facility] 10/18/2025 8:00 AM EST P[facility] Home [facility] / [place] [facility] [place] [facility] [address] [place] [phone] Tiana Sibley 10/18/2025 12:30 PM EST P[facility] Home [facility] / [place] [facility] [place] [facility] [address] [place] [phone] Lata Ford 10/18/2025 5:30 PM EST [facility] Home [facility] / [place] [facility] [place] [facility] [address] [place] [phone] [facility] 10/19/2025 8:00 AM EST [facility] Home [facility] / [place] [facility] [place] [facility] [address] [place] [address] Melissa Raza 10/19/2025 12:30 PM EST P[facility] Home [facility] / [place] [facility] [place] [facility] [address] [place] [phone] Melissa Raza 10/19/2025 5:30 PM EST [facility] Home [facility] / [place] [facility] [place] [facility] [address] [place] [phone] [facility] 10/20/2025 8:00 AM EST [facility] / [place] [facility] [place] [facility] [address] [place] [phone] Tiana Sibley 10/20/2025 12:30 PM EST [facility] Home [facility] / [place] [facility] [place] [facility] [address] [place] [phone] Trudy [facility] 10/20/2025 5:30 PM EST [facility] Home [facility] / [place] [facility] [place] [facility] [address] [place] [phone] [facility]aniel [facility] 10/21/2025 8:30 AM EST [facility] / [place] [facility] [place] [facility] [address] [place] [phone] Tiana Sibley 10/21/2025 12:30 PM EST P[facility] Home [facility] / [place] [facility] [place] [facility] [address] [place] [phone] [facility] 10/21/2025 5:30 PM EST [facility] Home [facility] / [place] [facility] [place] [facility] [address] [place] [phone] Tiana Sibley 10/22/2025 8:30 AM EST [facility] Home [facility] / [place] [facility] [place] [facility] [place] [facility] [address] [place] [phone] Tiana Sibley 10/22/2025 12:30 PM EST [facility] Home [facility] / [place] [facility] [place] [facility] [address] [place] [phone] Tiana Sibley 10/22/2025 5:00 PM EST [facility] Home [facility] / [place] [facility] [place] [facility] [address] [place] [phone] Tiana Sibley 10/23/2025 8:30 AM EST [facility] Home [facility] / [place] [facility] [place] [facility] [address] [place] [phone] Brigida Hendricks 10/23/2025 12:30 PM EST [facility] Home [facility] / [place] [facility] [place] [facility] [address] [place] [phone] Brigida Hendricks 10/23/2025 5:30 PM EST [facility] Home [facility] / [place] [facility] [place] [facility] [address] [place] [phone] Brigida Hendricks 10/24/2025 8:00 AM EST [facility] Home [facility] / [place] [facility] [place] [facility] [address] [place] [phone] Melissa Raza 10/24/2025 12:30 PM EST [facility] Home [facility] / [place] [facility] [place] [facility] [address] [place] [phone] Melissa Raza 10/24/2025 5:30 PM EST [facility] / [place] [facility] [place] [facility] [address] [place] [phone] Daksha Yates 10/25/2025 8:00 AM EST [facility] / [place] [facility] [place] [facility] [address] [place] [phone] Tiana Sibley 10/25/2025 12:30 PM EST [facility] Home [facility] / [place] [facility] [place] [facility] [address] [place] [phone] Lata Ford 10/25/2025 5:30 PM EST [facility] Home [facility] / [place] [facility] [place] [facility] [address] [place] [phone] Daksha Yates 10/26/2025 8:00 AM EST [facility] / [facility] [facility] [place] [facility] [address] [place] [phone] Melissa Raza 10/26/2025 12:30 PM EST [facility] Home [facility] / [place] [facility] [place] [facility] [address] [place] [phone] Melissa Raza 10/26/2025 5:30 PM EST [facility] Home [facility] / [place] [facility] [place] [facility] [place] [facility] [address] [place] [phone] Daksha Yates 10/27/2025 8:00 AM EST [facility] / [place] [facility] [place] [facility] [address] [place] [phone] Tiana Sibley 10/27/2025 12:30 PM EST [facility] / [facility] [facility] [place] [facility] [address] [place] [phone] aDksha Yates 10/27/2025 5:30 PM EST [facility] / [facility] [facility] [place] [facility] [address] [place] [phone] Daksha Yates 10/28/2025 8:30 AM EST [facility] Home [facility] / [place] [facility] [place] [facility] [address] [place] [phone] Tiana Sibley 10/28/2025 12:30 PM EST [facility] / [facility] [facility] [place] [facility] [address] [place] [phone] Daksha Yates 10/28/2025 5:30 PM EST [facility] Home [facility] / [place] [facility] [place] [facility] [address] [place] [phone] Tiana Sibley 10/29/2025 8:30 AM EST [facility] / [place] [facility] [place] [facility] [address] [place] [phone] Tiana Sibley 10/29/2025 12:30 PM EST [facility] / [facility] [facility] [place] [facility] [address] [place] [phone] Tiana Sibley 10/29/2025 5:30 PM EST [facility] / [place] [facility] [place] [facility] [address] [place] [phone] Tiana Sibley 10/30/2025 8:00 AM EST [facility] / [facility] [place] [facility] [address] [place] [phone] Daksha Yates 10/30/2025 12:30 PM EST [facility] Home [facility] / [facility] [place] [facility] [address] [place] [phone] Daksha Yates 10/30/2025 5:30 PM EST [facility] / [facility] [place] [facility] [address] [place] [phone] Daksha Yates 10/31/2025 8:00 AM EST [facility] Home [facility] / [facility] [place] [facility] [address] [place] [phone] Melissa Raza 10/31/2025 12:30 PM EST [facility] / [facility] [place] [facility] [address] [place] [phone] Melissa Raza 10/31/2025 5:30 PM EST [facility] Home [facility] / [facility] [place] [facility] [address] [place] [phone] [facility] 11/01/2025 8:00 AM EST [facility] / [facility] [place] [facility] [address] [place] [phone] Tiana Sibley 11/01/2025 12:30 PM EST [facility] / [facility] [place] [facility] [address] [place] [phone] Lata Ford 11/01/2025 5:30 PM EST [facility] Home [facility] / [facility] [place] [facility] [address] [place] [phone] Daksha Yates 11/02/2025 8:00 AM EST [facility] / [facility] [place] [facility] [address] [place] [phone] Melissa Raza 11/02/2025 12:30 PM EST [facility] / [facility] [place] [facility] [address] [place] [address] [place] [phone] Melissa Raza 11/02/2025 5:30 PM EST [facility] / [facility] [place] [facility] [address] [place] [phone] Daksha Yates 11/03/2025 8:00 AM EST [facility] / [facility] [place] [facility] [address] [place] [phone] Tiana Sibley 11/03/2025 12:30 PM EST [facility] Home [facility] / [facility] [place] [facility] [address] [place] [phone] Daksha Yates 11/03/2025 5:30 PM EST [facility] / [facility] [place] [facility] [address] [place] [phone] Daksha Yates 11/04/2025 8:30 AM EST [facility] / [facility] [place] [facility] [address] [place] [phone] Tiana Sibley 11/04/2025 12:30 PM EST [facility] / [facility] [place] [facility] [address] [place] [phone] Daksha Yates 11/04/2025 5:30 PM EST [facility] / [facility] [place] [facility] [address] [place] [phone] Tiana Sibley 11/05/2025 8:30 AM EST [facility] / [facility] [place] [facility] [address] [place] [phone] Tiana Sibley 11/05/2025 12:30 PM EST [facility] Home [facility] / [facility] [place] [facility] [address] [place] [phone] Tiana Sibley 11/05/2025 5:00 PM EST [facility] Home [facility] / [facility] [place] [facility] [address] [place] [phone] Tiana Sibley 11/06/2025 8:30 AM EST [facility] Home [facility] / [facility] [place] [facility] [address] [place] [phone] Brigida Hendricks 11/06/2025 12:30 PM EST [facility] / [facility] [place] [facility] [address] [place] [phone] Brigida Hendricks 11/06/2025 5:30 PM EST [facility] / [facility] [place] [facility] [address] [place] [phone] Brigida Hendricks 11/07/2025 8:00 AM EST [facility] / [facility] [place] [facility] [address] [place] [phone] Melissa Raza 11/07/2025 12:30 PM EST [facility] / [facility] [place] [facility] [address] [place] [phone] Melissa Raza 11/07/2025 5:30 PM EST [facility] Home [facility] / [facility] [place] [facility] [address] [place] [phone] Daksha Yates 11/08/2025 8:00 AM EST [facility] / [facility] [place] [facility] [address] [place] [phone] Tiana Sibley 11/08/2025 12:30 PM EST P[facility] Home [facility] / [facility] [place] [facility] [address] [place] [phone] Lata Ford 11/08/2025 5:30 PM EST P[facility] Home Care / [facility] [address] [place] [phone] [facility] 11/09/2025 8:00 AM EST P[facility] Home Care / [facility] [address] [place] [phone] Melissa Raza 11/09/2025 12:30 PM EST P[facility] Home Care / [facility] [address] [place] [phone] Melissa Raza 11/09/2025 5:30 PM EST P[facility] Home Care / [facility] Home Visit Anne Marie [facility] [address] [place] [phone] [facility] 11/10/2025 8:00 AM EST [facility] Home Visit Anne Marie GAL[facility]Z [facility] [address] [place] [phone] Tiana Sibley 11/10/2025 12:30 PM EST [facility] Home Visit Anne Marie GALVEZ [facility] [address] [place] [phone] Dansereadaniel, [facility] 11/10/2025 5:30 PM EST [facility] / [facility] Visit [facility] [address] [place] [phone] Dansereau, [facility] 11/11/2025 8:30 AM EST [facility] / [facility] Visit [facility] [address] [place] [phone] Tiana Sibley 11/11/2025 12:30 PM EST [facility] / [facility] [address] [place] [phone] Daksha Yates 11/11/2025 5:30 PM EST [facility] / [facility] Visit [facility] [address] [place] [phone] Tiana Sibley 11/12/2025 8:30 AM EST [facility] / [facility] [address] [place] [phone] Tiana Sibley 11/12/2025 12:30 PM EST [facility] / [facility] [address] [place] [phone] Tiana Sibley 11/12/2025 5:30 PM EST [facility] / [facility] [address] [place] [phone] Tiana Sibley 11/13/2025 8:00 AM EST [facility] / [facility] [address] [place] [phone] [facility] 11/13/2025 12:30 PM EST [facility] / [facility] [address] [place] [phone] Dansereau, [facility] 11/13/2025 5:30 PM EST [facility] / [facility] [address] [place] [phone] Dansereau, [facility] 11/14/2025 8:00 AM EST [facility] / [facility] [address] [place] [phone] Melissa Raza 11/14/2025 12:30 PM EST [facility] / [facility] [address] [place] [phone] Melissa Raza 11/14/2025 5:30 PM EST [facility] / [facility] [address] [place] [phone] Daksha Yates 11/15/2025 8:00 AM EST [facility] / [facility] [address] [place] [phone] Tiana Sibley 11/15/2025 12:30 PM EST [facility] / [facility] [address] [place] [phone] Lata Ford 11/15/2025 5:30 PM EST [facility] / [facility] [address] [place] [phone] Daksha Yates 11/16/2025 8:00 AM EST [facility] / [facility] [address] [place] [phone] Melissa Raza 11/16/2025 12:30 PM EST [facility] / [facility] [address] [place] [phone] Melissa Raaz 11/16/2025 5:30 PM EST [facility] / [facility] [address] [place] [phone] Daksha Yates 11/17/2025 8:00 AM EST [facility] / [facility] [address] [place] [phone] Tiana Sibley 11/17/2025 12:30 PM EST [facility] / [facility] [address] [place] [phone] Daksha Yates 11/17/2025 5:30 PM EST [facility] / [facility] [address] [place] [phone] Daksha Yates 11/18/2025 8:30 AM EST [facility] / [facility] [address] [place] [phone] Tiana Sibley 11/18/2025 12:30 PM EST [facility] / [facility] [address] [place] [phone] Daksha Yates 11/18/2025 5:30 PM EST [facility] / [facility] [address] [place] [phone] Tiana Sibley 11/19/2025 8:30 AM EST [facility] / [facility] [address] [place] [phone] Tiana Sibley 11/19/2025 12:30 PM EST [facility] / [facility] [address] [place] [phone] Tiana Sibley 11/19/2025 5:00 PM EST [facility] / [facility] [address] [place] [phone] Tiana Sibley 11/20/2025 8:30 AM EST [facility] / [facility] [address] [place] [phone] Brigida Hendricks 11/20/2025 12:30 PM EST [facility] / [facility] [address] [place] [phone] Brigida Hendricks 11/20/2025 5:30 PM EST [facility] / [facility] [address] [place] [phone] Brigida Hendricks 11/21/2025 8:00 AM EST [facility] / [facility] [address] [place] [phone] Melissa Raza 11/21/2025 12:30 PM EST [facility] / [facility] [address] [place] [phone] Melissa Raza 11/21/2025 5:30 PM EST [facility] / [facility] [address] [place] [phone] Daksha Yates 11/22/2025 8:00 AM EST [facility] / [facility] [address] [place] [phone] Tiana Sibley 11/22/2025 12:30 PM EST [facility] / [facility] [address] [place] [phone] Lata Ford 11/22/2025 5:30 PM EST [facility] / [facility] [address] [place] [phone] Daksha Yates documented as of this encounter Visit Diagnoses Not on filedocumented in this encounter Additional Health Concerns Assessment Noted Time PHQ-9 Depression Total Score: 3 03/25/20 25 11:12 AM EDT documented as of this encounter Care Teams [employer] Operations Coordinator Relationship Specialty Start Date End Date Reyna Zuniga NP [address] [address] PCP - General Family Medicine 11/06/24 documented as of this encounter
--- OUTSIDE RECORDS SUMMARY | 2025-09-21 15:17 | XMS_ITS | Continuity of Care Document ---
Author Organization [facility] ter Address [address] [place] [id number] Care Team Providers Care New Accounts Clerk Name Role Phone Not on Staff, PCP Primary Care Physician Unavail able Encounter [facility] Date(s): 09/20/25 - 09/21/[address] [address]- Discharge Disposition: A-D/C Home Attending Physician: Liz Murrieta MD Admitting Physician: Liz Murrieta MD Referring Physician: Not on Staff, Referring MD Encounter Type: Disch ES Allergies, Adverse Reactions, Alerts Substance Criticality Severity Reaction Reaction Severity Status Other Environmental Allergy 1 sneezing, itchy eyes Active 1seasonal allergy Immunizations Given and Recorded Vaccine Date Status Refusal Reason SARS-CoV-2 (COVID-19) mRNA-1273 vaccine 02/13/22 R ecorded SARS-CoV-2 (COVID-19) mRNA-1273 vaccine 10/09/21 R ecorded Medications acetaminophen 325 mg oral tablet 650 mg, By Mouth, 3 times a day, PRN, Temperature Greater than 100.5 or pain not to exceed 3000 mg/day, Refills 0, Maintenance, Pain , Mild, 06/21/25 1:17:00 PM EDT, Partial fill upon patient request if the prescription is for a schedule II opioid drug. Start Date: 06/21/25 Status: Ordered Medication Dispense Status: Completed Total Allowed Fills: 1 Fills Dispensed: 0 atorvastatin 40 mg oral tablet 1 tablet = 40 mg, By Mouth, Daily at bedtime, # 90 tablet, 0 Refills, Maintenance, 06/05/23 7:54:00 PM EDT, Tablet, Partial fill upon patient request if the prescription is for a schedule II opioid drug. Start Date: 06/05/23 Status: Ordered Medication Dispense Status: Completed Quantity: 90.0 Unit: tablet Total Allowed Fills: 1 Fills Dispensed: 0 carbidopa-levodopa 25 mg-100 mg oral tablet 1 tablet, By Mouth, 3 times a day, 0 Refills, Maintenance, 07/13/25 11:19:00 AM EDT, Tablet, Partialfill upon patient request if the prescription is for a schedule II opioid drug. Start Date: 07/13/25 Status: Ordered Medication Dispense Status: Completed Total Allowed Fills: 1 Fills Dispensed: 0 escitalopram 5 mg oral tablet 1 tablet = 5 mg, By Mouth, Daily, # 30 tablet, 0 Refills, Maintenance, 06/05/23 7:56:00 PM EDT, Tablet, Partial fill upon patient request if the prescription is for a schedule II opioid drug. Start Date: 06/05/23 Status: Ordered Medication Dispense Status: Completed Quantity: 30.0 Unit: tablet Total Allowed Fills: 1 Fills Dispensed: 0 finasteride 5 mg oral tablet = 5 mg, By Mouth, Daily at bedtime, 0 Refills, Maintenance, 06/21/25 1:16:00 PM EDT, Tablet, Partialfill upon patient request if the prescription is for a schedule II opioid drug. Start Date: 06/21/25 Status: Ordered Medication Dispense Status: Completed Total Allowed Fills: 1 Fills Dispensed: 0 fluticasone 50 mcg/inh inhalation powder 1 puffs, Inhalation, Daily, # 60 each, 0 Refills, Maintenance, 01/01/23 1:22:00 PM EDT, Powder, Partial fill upon patient request if the prescription is for a schedule II opioid drug. Start Date: 01/01/23 Status: Ordered Medication Dispense Status: Completed Quantity: 60.0 Unit: each Total Allowed Fills: 1 Fills Dispensed: 0 meclizine 25 mg oral tablet 1 tablet = 25 mg, By Mouth, 3 times a day, PRN for dizziness, # 30 tablet, 0 Refills, Maintenance, 01/01/23 1:21:00 PM EDT, Tablet, Partial fill upon patient request if the prescription is for a schedule II opioid drug. Start Date: 01/01/23 Status: Ordered Medication Dispense Status: Completed Quantity: 30.0 Unit: tablet Total Allowed Fills: 1 Fills Dispensed: 0 metoprolol 25 mg oral tablet 25 mg, By Mouth, 2 times a day, hold if systolic blood pressure is below 120 mmHg or heart rate is below 55 [id number], # 180 tablet, Refills 0, Tot. Refills 0, Maintenance, 07/13/25 9:55:00 AM EDT, Route to Pharmacy Electronically, [facility][id number], Partial fill upon patient requestif the prescription is for a schedule II opioid drug., 170, cm, 07/12/25 21:19:00 EDT, Height, 61.7, kg, 06/23/25 14:23:00 EDT, Dry Weight Start Date: 07/13/25 Status: Ordered Medication Dispense Status: Completed Quantity: 180.0 Unit: tablet Total Allowed Fills: 1 Fills Dispensed: 0 midodrine 5 mg oral tablet 5 mg, By Mouth, 3 times a day, Hold if systolic blood pressure is above 140 mmHg; Schedule last dose before 6PM and stay away from bedtime., Refills 0, Maintenance, 07/13/25 9:37:00 AM EDT, Partial fill upon patient request if the prescription is for a schedule II opioid drug. Start Date: 07/13/25 Status: Ordered Medication Dispense Status: Completed Total Allowed Fills: 1 Fills Dispensed: 0 rasagiline 1 mg oral tablet 1 tablet = 1 mg, By Mouth, Daily, # 30 tablet, 0 Refills, Maintenance, 06/22/25 3:46:00 PM EDT, Tablet, Partial fill upon patient request if the prescription is for a schedule II opioid drug. Start Date: 06/22/25 Status: Ordered Medication Dispense Status: Completed Quantity: 30.0 Unit: tablet Total Allowed Fills: 1 Fills Dispensed: 0 rivastigmine 4.6 mg/24 hr transdermal film, extended release = 4.6 mg, Topically, Daily, # 30 patch, 2 Refills, Maintenance, 07/13/25 9:55:00 AM EDT, Patch, [facility][id number], Partial fill upon patient request if the prescription is for a schedule II opioid drug., 4.6 mg Topically Daily, 170, cm, 07/12/25 21:19:00 EDT, Height, 61.7, kg, 06/23/25 14:23:00 EDT, Dry Weight Start Date: 07/13/25 Status: Ordered Medication Dispense Status: Completed Quantity: 30.0 Unit: patch Total Allowed Fills: 3 Fills Dispensed: 0 Senna 8.6 mg oral tablet 17.2 mg, 2, tablet, By Mouth, Daily at bedtime, PRN, # 100 tablet, Refills 0, Maintenance, for constipation, 06/05/23 7:55:00 PM EDT, Tablet, Partial fill upon patient request if the prescription is for a schedule II opioid drug. Start Date: 06/05/23 Status: Ordered Medication Dispense Status: Completed Quantity: 100.0 Unit: tablet Total Allowed Fills: 1 Fills Dispensed: 0 SEROquel 25 mg oral tablet 25 mg, By Mouth, 2 times a day, Daily at 3PM and 6PM, # 180 tablet, Refills 0, Tot. Refills 0, Maintenance, 07/13/25 9:55:00 AM EDT, Route to Pharmacy Electronically, [facility] #[id number], Partial fill upon patient request if the prescription is for a schedule II opioid drug., 170, cm, 07/12/25 21:19:00 EDT, Height, 61.7, kg, 06/23/25 14:23:00 EDT, Dry Weight Start Date: 07/13/25 Status: Ordered Medication Dispense Status: Completed Quantity: 180.0 Unit: tablet Total Allowed Fills: 1 Fills Dispensed: 0 tamsulosin 0.4 mg oral capsule 0.4 mg, 1, capsule, By Mouth, Daily at bedtime, # 30 capsule, Refills 0, Maintenance, 06/05/23 7:55:00 PM EDT, Partial fill upon patient request if the prescription is for a schedule II opioid drug. Start Date: 06/05/23 Status: Ordered Medication Dispense Status: Completed Quantity: 30.0 Unit: capsule Total Allowed Fills: 1 Fills Dispensed: 0 Jose Garcia, See Instructions, # 1 each, Refills 0, Tot. 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 FINDINGS: LINES AND TUBES: None. LUNGS AND PLEURA: Clear lungs. Normal pulmonary vascularity. No evidence of pleural effusion. No pneumothorax. HEART, MEDIASTINUM AND FIDENCIO: Heart is normal in size. Normal mediastinal and hilar contour. BONES AND SOFT TISSUES: No acute abnormality. IMPRESSION: No acute abnormality. WSN: [id number] Ordering Physician: Kenny Arana Dictated By: Flo Bradford DO Dictated Date/Time: 09/21/25 0:11 am Reviewed By: Flo Bradford DO Signed By: Flo Bradford DO Signed Date/Time: 09/21/25 0:11 am Transcribed By: GENARO Transcribed Date/Time: 09/21/25 0:10 am * Exam Date Time Procedure Performing Provider Status 09/20/25 3:[address] Cervical Spine W/O Contrast Auth (Verified) Notes: (CT Cervical Spine W/O Contrast) Reason For Exam: Neck Trauma, dangerous injury mechanism,;Other: RESULT: CT Cervical Spine W/O Contrast CT Head/Brain W/O Contrast, CT Cervical Spine W/O Contrast INDICATION: Reason: Trauma; head trauma, mod-severe; Clinical Question(s): Other:; Hematoma, No contrast - TECHNIQUE: Noncontrast head CT using axial technique was reconstructed in axial and coronal planes.Noncontrast spiral CT through the cervical spine was formatted in 3 planes. Automatic tube modulation was used for the cervical spine and iterative dose reconstruction was used for both the head and cervical spine to optimize scan parameters and image quality. CTDIvol Body: 8.30 mGy, DLP Body: 217 mGy*cm. CTDIvol Head: 41.20 mGy, DLP Head: 672 mGy*cm. COMPARISON: Several priors, most recent CT head 06/22/2025 FINDINGS: Evaluation is limited by streak artifact from left cochlear implant. Tunnel Heading Supervisor View Findings, Lines and Tubes: Left cochlear implant. BRAIN AND EXTRA-AXIAL SPACES: No parenchymal hemorrhage, midline shift, or mass effect. Oliveira-white matter differentiation is wellpreserved. No acute infarct. Negative insular ribbon sign. Atherosclerotic vascular calcification of the carotid arteries but negative hyperdense vessel sign. Normal ventricular and sulcal configuration for age. Mild low-density white matter changes. No subarachnoid hemorrhage. No subdural or epidural collection. CALVARIUM, SKULL BASE, AND SOFT TISSUES: No fractures or suspicious bony lesions. The paranasal sinuses and mastoid air cells are clear. Status-post bilateral lens extraction. The extracranial soft tissues are unremarkable. CERVICAL SPINE: No fracture. No acute osseous abnormalities. Straightening of the normal cervical lordosis, which may be positional or due to muscle spasm. Diminished height of the C4-5, C5-6, and C6-7 intervertebral discs with associated endplate osteophytes. OTHER BONES: No acute abnormality. CERVICAL SOFT TISSUES AND LUNG APICES: Normal soft tissues. Visualized lung apices are clear. No thyroid nodule large enough to warrant follow up. IMPRESSION: No acute abnormality of the head or cervical spine. Degenerative changes in the cervical spine with diminished height of several intervertebral discs. I have personally reviewed the images and I agree with this report. WSN: [id number] Ordering Physician: Daniel Esqueda Dictated By: Mary Delaney DO Dictated Date/Time: 09/20/25 3:36 pm Reviewed By: Coleman Gamble MD Signed By: Coleman Gamble MD Signed Date/Time: 09/20/25 3:41 pm Transcribed By: GENARO Transcribed Date/Time: 09/20/25 3:28 pm * Exam Date Time Procedure Performing Provider Status 09/20/25 3:[address] Head/Brain W/O Contrast Auth (Verified) Notes: (CT Head/Brain W/O Contrast) Reason For Exam: head trauma, mod-severe;Trauma RESULT: CT Head/Brain W/O Contrast CT Head/Brain W/O Contrast, CT Cervical Spine W/O Contrast INDICATION: Reason: Trauma; head trauma, mod-severe; Clinical Question(s): Other:; Hematoma, No contrast - TECHNIQUE: Noncontrast head CT using axial technique was reconstructed in axial and coronal planes.Noncontrast spiral CT through the cervical spine was formatted in 3 planes. Automatic tube modulation was used for the cervical spine and iterative dose reconstruction was used for both the head and cervical spine to optimize scan parameters and image quality. CTDIvol Body: 8.30 mGy, DLP Body: 217 mGy*cm. CTDIvol Head: 41.20 mGy, DLP Head: 672 mGy*cm. COMPARISON: Several priors, most recent CT head 06/22/2025 FINDINGS: Evaluation is limited by streak artifact from left cochlear implant. Tunnel Heading Supervisor View Findings, Lines and Tubes: Left cochlear implant. BRAIN AND EXTRA-AXIAL SPACES: No parenchymal hemorrhage, midline shift, or mass effect. Oliveira-white matter differentiation is wellpreserved. No acute infarct. Negative insular ribbon sign. Atherosclerotic vascular calcification of the carotid arteries but negative hyperdense vessel sign. Normal ventricular and sulcal configuration for age. Mild low-density white matter changes. No subarachnoid hemorrhage. No subdural or epidural collection. CALVARIUM, SKULL BASE, AND SOFT TISSUES: No fractures or suspicious bony lesions. The paranasal sinuses and mastoid air cells are clear. Status-post bilateral lens extraction. The extracranial soft tissues are unremarkable. CERVICAL SPINE: No fracture. No acute osseous abnormalities. Straightening of the normal cervical lordosis, which may be positional or due to muscle spasm. Diminished height of the C4-5, C5-6, and C6-7 intervertebral discs with associated endplate osteophytes. OTHER BONES: No acute abnormality. CERVICAL SOFT TISSUES AND LUNG APICES: Normal soft tissues. Visualized lung apices are clear. No thyroid nodule large enough to warrant follow up. IMPRESSION: No acute abnormality of the head or cervical spine. Degenerative changes in the cervical spine with diminished height of several intervertebral discs. I have personally reviewed the images and I agree with this report. WSN: [id number] Ordering Physician: Daniel Esqueda Dictated By: Mary Delaney DO Dictated Date/Time: 09/20/25 3:36 pm Reviewed By: Coleman Gamble MD Signed By: Coleman Gamble MD Signed Date/Time: 09/20/25 3:41 pm Transcribed By: GENARO Transcribed Date/Time: 09/20/25 3:28 pm Vital Signs Most recent to oldest [Reference Range]: 1 2 3 Oxygen Saturation [94-100 %] 99 % (09/21/25 3:10 PM) 100 % (09/21/25 12:34 PM) 99 % (09/21/25 7:49 AM) Pulse Rate [55-90 bpm] 55 bpm (09/21/25 3:10 PM) 57 bpm (09/21/25 12:34 PM) 62 bpm (09/21/25 7:49 AM) Blood Pressure [90-138/55-84 mm Hg] 154/81mm Hg *H* (09/21/25 3:10 PM) 182/75mm Hg *H* (09/21/25 12:34 PM) 167/89mm Hg *H* (09/21/25 7:49 AM) Respiratory Rate [16-30 br/min] 18 br/min (09/21/25 3:10 PM) 18 br/min (09/21/25 12:34 PM) 18 br/min (09/21/25 7:49 AM) Temperature [96.8-100.4 DegF] 99.0 DegF (09/21/25 3:10 PM) 98.1 DegF (09/21/25 7:49 AM) 97.9 DegF (09/20/25 2:41 PM) Mode of Delivery (Oxygen) Room air (09/21/25 3:10 PM) Room air (09/21/25 12:34 PM) Room air (09/21/25 7:49 AM) Blood pressure sites Arm, right (09/21/25 3:10 PM) Arm, right (09/21/25 12:34 PM) Arm, right (09/21/25 7:49 AM) Temperature Route Oral (09/21/25 3:10 PM) Oral (09/21/25 7:49 AM) Oral (09/20/25 2:41 PM) Social History Social History Type Response Sex Sex Representation Male (finding) EKG study * Event Display: ECG 12-Lead Authored Date: Please click on pdf link to open report * Event Display: ECG 12-Lead Authored Date: Ventricular Rate: 58 BPM Atrial Rate: 58 BPM P-R Interval: 154 ms QRS Duration: 98 ms Q-T Interval: 438 ms QTC Calculation(Bazett): 429 ms P Beaver: 75 degrees R Beaver: 57 degrees T Beaver: 58 degrees Sinus bradycardia Otherwise normal ECG When compared with ECG of 22-Jun-2025 01:49, No significant change Confirmed by RICKY MORALES MD ([id number]) on 09/20/2025 3:40:36 PM [place]: RICKY MORALES MD Note * Atul RASMUSSEN, Scarlet Iverson: PERFORM, SIGN, VERIFY Event Display: Case Management Discharge Plan Authored Date: [id number] Patient: RIGOBERTO PRIETO Age: 75 years Sex: Male : 1950 Associated Diagnoses: None Author: Scarlet Pollard RN Discharge Plan Case Management Discharge Plan : Case Management Discharge Plan Data 09/21/2025 13:28 EST Discharge Level of Care at Discharge [facility] facility Discharge Nursing Homes/Rehab Facilities [facility] [phone] Discharge Transportation Arranged [facility] [address] [facility] [id number] Mode of Transportation Arranged Ambulance Name of Agency #1 [facility] Service Categories #1 Senior Care, [facility], Other: respit care Name of Person Notified of Transfer Luis M Prieto [phone] 09/21/2025 13:05 EST Discharge Elder Services [facility] Electronically Signed on 09/21/25 01:31 PM Scarlet Pollard RN Patient Care team information Care Team Personnel Name: Fede Preciado RN Position: [facility] RN Member Role: Primary Care Nurse Name: Mckenzie Burns RN Position: S RN Member Role: Primary Care Nurse Name: Pina Conde LPN Position: S RN Member Role: Primary Care Nurse Name: Lamberto Ryan RN Position: S RN Member Role: Primary Care Nurse Name: Jake Lucas RN Position: S RN Member Role: Primary Care Nurse Name: Lety Brdaford RN Position: S RN Member Role: Primary Care Nurse Name: Jazmín Chisholm RN Position: S RN Member Role: Primary Care Nurse Name: Not on Staff, PCP Position: [facility] Physician (General Medicine) Member Role: PCP Name: Meghan Dixon RN Position: [facility] RN Member Role: Primary Care Nurse Name: Ritika Raman RN Position: [facility] RN Member Role: Primary Care Nurse Name: Tiana Ernst LPN Position: [facility] RN Member Role: Primary Care Nurse Name: Reny Keller RN Position: [facility] RN Member Role: Primary Care Nurse Care Team Related Persons Name: LOUANN MEDHAT Name: LUIS M PRIETO Insurance Providers Guarantor name: ESTHER Health Plan Information #: 1 Payer: I MEDICARE REPLACEMENT Payer Identifier: Member Number: [id number] Group Number: Subscriber Identifier: [id number] Relationship to Subscriber: self Coverage Type: Medicare Managed Care (Includes Medicare Advantage Plans) Coverage Verification Date: NA Telecom: NA Address: State [facility] Plan Information #: 2 Payer: [facility] Payer Identifier: Member Number: [id number] Group Number: Subscriber Identifier: [id number] Relationship to Subscriber: self Coverage Type: MEDICAID Coverage Verification Date: NA Telecom: NA Address:
[2025-09-24] VITALS (18 sets, daily range): BP systolic 94–204; BP diastolic 48–96; PULSE 56–76; RESP 15–18; TEMP 36.2–36.9; O2SAT 93–99; BMI 19.0
--- NOTE | 2025-09-24 | ECG_ITS ---
Test Reason : REPEAT Blood Pressure : */* mmHG Vent. Rate : 52 BPM Atrial Rate : 52 BPM P-R Int : 144 ms QRS Dur : 92 ms QT Int : 466 ms P-R-T Axes : 75 48 56 degrees QTcB Int : 433 ms Sinus bradycardia Otherwise normal ECG When compared with ECG of 24-Sep-2025 04:14, Poor data quality in previous ECG Referred By: Mckenzie Frankel Electronically Signed By: Johnnie Tian
--- NOTE | 2025-09-24 | ECG_ITS ---
Test Reason : FALL Blood Pressure : */* mmHG Vent. Rate : 52 BPM Atrial Rate : 52 BPM P-R Int : 168 ms QRS Dur : 92 ms QT Int : 474 ms P-R-T Axes : 30 54 49 degrees QTcB Int : 440 ms Undetermined rhythm ?artifact vs flutter When compared with ECG of 05-Sep-2025 22:54, Repeat the ECG Referred By: Generic ED Physician Electronically Signed By: Johnnie Tian
--- NOTE | ~2025-09-24 | CT_ITS ---
CLINICAL HISTORY: fall, dementia CT head without contrast Comparison: CT/SR - CT HEAD WITHOUT IV CONTRAST - 04/21/25 15:31 EDT Findings: No evidence of acute territorial infarct. There is patchy low density in the periventricular and subcortical white matter. Mild diffuse volume loss is noted. No hydrocephalus. No hemorrhage, mass effect, mass lesion or midline shift. No abnormal extra-axial fluid. No calvarial fracture. Paranasal sinuses and mastoid air cells are clear. Impression: No acute intracranial process. Chronic changes as detailed. This document has been electronically signed by: Smith Faustin MD on 09/24/2025 07:00:32
--- NOTE | ~2025-09-24 | CT_ITS ---
CLINICAL HISTORY: fall, dementia CT cervical spine without contrast Comparison: None Findings: There is straightening of the normal cervical lordosis. No fracture or acute malalignment. [id number] multilevel degenerative changes throughout the cervical spine. The facet joints are normally imbricated. No prevertebral soft tissue edema. Lung apices demonstrate no acute process. Impression: Multilevel degenerative changes without evidence of acute fracture or acute malalignment. This document has been electronically signed by: Smith Faustin MD on 09/24/2025 06:59:45
--- OUTSIDE RECORDS SUMMARY | 2025-09-24 04:17 | XMS_ITS | Clinical Summary ---
Author Organization [facility] [place] [address] Phone Care Team Providers Care Dials Supervisor Name Role Phone Carla Zuniga GROCERY CLERK CHECKING Primary Care Provider [phone] Allergies No known active allergies Medications polyethylene [...] (one) time each day. 28 tablet 05/16/20 026 Active meclizine (ANTIVERT) 25 mg tabletIndications: Vertigo Take 1 tablet (25 mg total) by mouth 3 (three) times a day if needed for dizziness. 30 tablet 5 10/08 Active senna 8.6 mg tabletIndications: Chronic idiopathic constipation Take 1 tablet (8.6 mg total) by mouth 1 (one) time each day. 30 each 07/13/20 Active atorvastatin (LIPITOR) 40 mg tabletIndications: Hypercholesterolem [...] day in the evening. 28 each 08/22/20 Active carbidopa-levodopa (SINEMET) 25-100 mg per tabletIndications: Parkinson's disease without dyskinesia, with fluctuating manifestations (CMS/HCC V24, CMS/HCC V28) Take 1 tablet by mouth 3 (three) times a day. Morning, noon and evening dosing 90 tablet 08/22/20 Active losartan (Cozaar) 25 mg tabletIndications: Primary hypertension Take 1 tablet (25 mg total) by mouth 1 (one) time each day. Hold for standing SBP <120 28 each 20 25 026 Active midodrine (PROAMATINE) 5 mg tabletIndications: Orthostatic hypotension due to Parkinson disease (CMS/HCC V24, CMS/HCC V28) Take 1 tablet (5 mg total) by mouth 3 (three) times a day before meals. 84 each 5 09/08/20 25 026 Active cholecalciferol (Vitamin D3) 50 mcg (2,000 unit) capsuleIndications :Vitamin D deficiency Take 1 capsule (2,000 Units total) by mouth 1 (one) time each day. 30 each 09/14/20 25 026 Active midodrine (PROAMATINE) 5 mg tabletIndications: Orthostatic hypotension due to Parkinson disease (CMS/HCC V24, CMS/HCC V28) Take 1 tablet (5 mg total) by mouth 2 (two) times a day. 60 each 5 07/13/20 25 025 Discontinu ed(Reorder ) cefdinir (OMNICEF) 300 mg capsuleIndications :Acute cystitis without hematuria Take 1 capsule (300 mg total) by mouth 2 (two) times a day for 10 days. 20 each 09/04/20 25 025 Active Problems Problem Noted Date Diagnosed Date Transient alteration of awareness 09/05/2025 Assessment & Plan (09/14/2025 9:44 AM EST): Episodes of confusion, treated empirically for UTI, urine sample obtained after PAR had taken 2 doses of antibiotic. Urine culture showed no growth. Has 2 days of antibiotics left. Still have episodes confusion which more related to Lewy body dementia. Continue to monitor. Son educated on this. Multiple falls 08/24/2025 Assessment & Plan (09/19/2025 3:01 PM EST): Discussed with son options to try to prevent recurrent falls which are happening mostly overnight. Contributing factors included increased confusion at night secondary to dementia, orthostatic hypotension, and tremors due to parkinson's disease. Will have PT/OT provide bedside commode for PAR. Also discuss with son the possibility of needing a wheelchair to roam around at night. Assessment & Plan (09/14/2025 9:39 AM EST): Contributing factor most likely due to orthostatic hypotension and progressive Lewy Body Dementia. Continue to encourage use of Rolator for ambulation. Fall precautions. Assessment & Plan (08/24/2025 3:10 PM EST): Needs a walker with an easy locking mechanism. Betablocker stopped. Son has already removed extra items, has put padding around sharp furniture corners. He will install another camera in the home where pt's falls can be visualized. Vertigo 08/24/2025 Assessment & Plan (09/14/2025 9:21 AM EST): Stable. Denies any current dizziness. Use meclizine as needed. Assessment & Plan (08/24/2025 3:10 PM EST): Therapy: pls show pt and son how to do the Meena manoevers. This way they know how to do this when he gets severe vertigo. Hallucinations 08/24/2025 Assessment & Plan (09/14/2025 9:42 AM EST): Improved. Continue rivastigimine as prescribed. Assessment & Plan (08/24/2025 3:10 PM EST): Low dose quetiapine 25mg seems to work well for his hallucinations, per son. Parkinsonian tremor 08/24/2025 Assessment & Plan (09/14/2025 9:42 AM EST): Chronic condition; stable. Continue current medication. Follow up with neurologist as indicated. Assessment & Plan (08/24/2025 3:13 PM EST): Therapy: please assess and evaluate for Weighted spoon, fork, knife due to severity of hand tremors. Tinnitus, bilateral 03/25/2025 Assessment & Plan (09/14/2025 9:21 AM EST): Chronic condition; stable. Monitor. Assessment & Plan (03/26/2025 3:00 PM EDT): Chronic condition; stable. Continue to monitor. Allergic rhinitis 11/17/2024 Assessment & Plan (09/14/2025 9:24 AM EST): Chronic condition; stable. Continue to monitor and treat as needed. Assessment & Plan (03/26/2025 3:00 PM EDT): Chronic condition; stable. Symptoms are minimal. Continue to monitor and treat as needed. Benign prostatic hyperplasia with lower urinary tract symptoms 11/17/2024 Overview (11/17/2024): BPH with LUTS Assessment & Plan (09/14/2025 9:35 AM EST): Chronic condition; stable, Continue current medication. Post void bladder scan today of 2 ml. Assessment & Plan (07/21/2025 3:10 PM EDT): PAR on Finasteride and tamsulosin daily in the evening. Discussed with son that tamsulosin can also contribute to hypotension. PAR is scheduled to see Urologist on Friday. He will discuss with urology about discontinuing medication. Assessment & Plan (03/26/2025 3:07 PM EDT): Chronic condition; stable on current medications. Continue to monitor. Cervicalgia 11/17/2024 Assessment & Plan (09/14/2025 9:19 AM EST): Stable. Pain has improved. Continue to monitor and treat as needed. Assessment & Plan (03/26/2025 2:55 PM EDT): Chronic condition; stable. Intermittent pain. Continue stretching exercises. Use APAP as needed. Constipation 11/17/2024 Assessment & Plan (09/14/2025 9:29 AM EST): Stable. Continue to monitor and treat as needed. Assessment & Plan (03/26/2025 3:05 PM EDT): Chronic condition; stable. Continue current medication. Depression, major, recurrent, mild 11/17/2024 Assessment & Plan (09/14/2025 9:36 AM EST): Chronic condition; stable. Continue current medication. Assessment & Plan (08/24/2025 3:10 PM EST): Currently on a low dose of escitalopram 5mg. Consider if needed in the future, for worsening depression and anxiety: Stop escitalopram. Start fluvoxamine 25mg. Increase to 50mg after 28 day cycle. Assessment & Plan (03/26/2025 3:14 PM EDT): Chronic condition; stable. PHQ-9 score of 3. Continue current medication. Monitor. Anxiety 11/17/2024 Assessment & Plan (09/14/2025 9:37 AM EST): Stable. Continue SSRI daily. Assessment & Plan (03/26/2025 3:14 PM EDT): Chronic condition; stable. Continue current medication. Edentulous 11/17/2024 Overview (11/17/2024): Edentulous, Partial Assessment & Plan (09/14/2025 9:34 AM EST): Chronic condition; waiting on dentures to be delivered by dental. Will check on status with scheduler conveyor. Assessment & Plan (08/24/2025 3:10 PM EST): [facility]: please check on pt's dentures, which pt has been waiting on for about 3 months. Assessment & Plan (03/26/2025 3:06 PM EDT): Chronic condition; stable. Still has some teeth. Complaining of pain in right lower aspect. Refer to dentist. Dry mouth 11/17/2024 Assessment & Plan (09/14/2025 9:34 AM EST): Stable. Most likely due to medications. Continue supportive measures. Assessment & Plan (03/26/2025 3:06 PM EDT): Chronic condition; stable. Continue to monitor and treat as needed. Unsteady gait 11/17/2024 Assessment & Plan (09/14/2025 9:37 AM EST): Stable. Continue use of Rolator. Continue fall precautions. Assessment & Plan (08/24/2025 3:10 PM EST): Due to autonomic dysfunction of PD-son understands this. SDR: from pt's son: Patient needs assistance with laundry. He has to go down stairs to the basement. Balance problems make this dangerous. Son says: maybe a personal fitness manager would be helpful. Assessment & Plan (03/26/2025 3:14 PM EDT): Chronic condition; stable. Does not use any DME for ambulation. Discussed fall precautions. Hard of hearing 11/17/2024 Overview (09/14/2025): >>OVERVIEW FOR HISTORY OF COCHLEAR IMPLANT WRITTEN ON 08/24/2025 1:54 PM BY ILSA STACY MD L ear, around 2021 Assessment & Plan (09/14/2025 9:39 AM EST): >>ASSESSMENT AND PLAN FOR HISTORY OF COCHLEAR IMPLANT WRITTEN ON 08/24/2025 3:10 PM BY ILSA STACY MD Added for completion of problem list. L ear, around 2021. Assessment & Plan (09/14/2025 9:19 AM EST): Stable. PAR with a left ear cochlear implant. Uses hearing aide in right ear. Assessment & Plan (03/26/2025 2:56 PM EDT): Chronic condition; stable. Uses hearing aid in right ear. Has a cochlear implant in left ear. Hypercholesterolemia 11/17/2024 Assessment & Plan (09/14/2025 9:36 AM EST): Stable. Continue daily statin therapy. Assessment & Plan (03/26/2025 3:09 PM EDT): Chronic condition; continue daily statin therapy. Check yearly any lipid panels. Hypertension 11/17/2024 Assessment & Plan (09/14/2025 9:26 AM EST): Blood pressure slightly elevated today. Currently on Losartan 25 mg daily with parameter to hold for SBP less than 120. Continue to monitor blood pressure closely with home blood pressure monitoring by nursing. Assessment & Plan (07/21/2025 3:12 PM EDT): [...] every morning. Bradycardia 11/17/2024 Assessment & Plan (09/14/2025 9:28 AM EST): HR in the 50s today. Off beta-amita. May be secondary to rivastigmine. Continue to monitor with home nurse monitoring vital signs. Assessment & Plan (07/21/2025 3:08 PM EDT): HR palpable at 48. Will reduce dose of Metoprolol to 12.5 mg twice a day. Continue to monitor HR and blood pressure. Assessment & Plan (03/26/2025 3:05 PM EDT): EKG performed heart rate 46. Need to discontinue metoprolol. Monitor. Intolerance to cold 11/17/2024 Assessment & Plan (09/14/2025 9:37 AM EST): Secondary to Parkinson's disease. Has intermittent episodes of diaphoresis. Monitor. Assessment & Plan (03/26/2025 3:14 PM EDT): Secondary to Parkinson's disease. Has intermittent episodes of diaphoresis. Continue to monitor. Orthostatic hypotension due to Parkinson disease 11/17/2024 Assessment & Plan (09/19/2025 2:46 PM EST): Continue midodrine 3 times a day during the day. Consider adding Florinef noon as it has a longer half-life to provide some night coverage for orthostatic hypotension. Will discuss with neurologist prior to making any more medication changes. Assessment & Plan (09/14/2025 9:20 AM EST): Chronic condition; today not orthostatic. Received dose of midodrine about 2 hours ago. Continue to monitor orthostatic VS and adjust medication as indicated. Assessment & Plan (09/14/2025 9:22 AM EST): >>ASSESSMENT AND PLAN FOR ORTHOSTATIC HYPOTENSION DUE TO PARKINSON DISEASE (CMS/[facility] V24, CMS/[facility] V28) WRITTEN ON 08/24/2025 3:10 PM BY ILSA STACY MD Per neurology, beta amita can be stopped. Calling neurology office to see if losartan 25mg would be acceptable, given his high SBPs. Less chance of syncope than betablocker. Will await Dr Jones's recommendations (left voicemail with my secure voicemail number). >>ASSESSMENT AND PLAN FOR POSTURAL DIZZINESS WITH PRESYNCOPE WRITTEN ON 08/24/2025 3:10 PM BY ILSA STACY MD Therapy: Patient needs strong grab bars around the house. A shower chair would be helpful, to prevent future falls. Also pls evaluate for an easily lockable 3-wheel or 4 wheel rolling walker (with seat), that patient can use at home and outside the home. Assessment & Plan (07/21/2025 3:08 PM EDT): [...] Continue to follow-up with neurologist as directed. Cataract of left eye 11/17/2024 Assessment & Plan (09/14/2025 9:21 AM EST): Stable. Surgery not yet indicated. Continue to recommend yearly eye exam. Assessment & Plan (03/26/2025 3:00 PM EDT): Chronic condition; stable. Continue to follow-up with medicaid collection specialist as indicated. Assessment & Plan (01/08/2025 6:04 PM EDT): PAR is scheduled for left cataract surgery on 01/17/25. No direct contraindication to surgery expect that blood pressure is not within acceptable range. Will have PAR return in 1 week for BP recheck. Reinforced importance of taking BP meds every morning. 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 This also increases risk of falls. Assessment & Plan (09/14/2025 9:36 AM EST): >>ASSESSMENT AND PLAN FOR MILD COGNITIVE IMPAIRMENT WRITTEN ON 03/26/2025 3:11 PM BY CARLA ZUNIGA NP Chronic condition; stable. Continue to monitor for signs and symptoms of decline. Assessment & Plan (09/14/2025 9:24 AM EST): Chronic condition; educated son that increased confusion and episodes of incontinence could most likely be related to worsening dementia. Urinalysis repeated today was negative for for leukocytes and nitrites. Continue rivastigmine as prescribed. Resolved Problems Problem Noted Date Diagnosed Date Resolved Date Other specified disorders of bone density and structure, multiple sites 11/17/2024 09/05/2025 Overview (11/17/2024): DEXA: Z13.820, M85.89 Assessment & Plan (03/26/2025 3:08 PM EDT): Chronic condition; stable. Continue to monitor vitamin D levels to maintain vitamin D level above 30. Check vitamin D level yearly. Double vision 11/17/2024 09/14/2025 Assessment & Plan (03/26/2025 3:15 PM EDT): Chronic condition; continue to follow-up with medicaid collection specialist as directed. Encounters Date Type Department Care Team Description 09/22/2025 Lab Requisition [facility] - Main Lab [address] [facility] [place] [address] Mikayla Angulo MD Parkinsonism, unspecified ([facility] V24, [facility] V28) 09/21/2025 PACE [facility] [address] [place] [address] Liberty Burns RN Recurrent falls (Primary Dx); Lewy body dementia, unspecified dementia severity, unspecified whether behavioral, psychotic, or mood disturbance or anxiety ([facility] V24, [facility] V28); Frailty 09/20/2025 12:45 PM EST Treatment [facility] Physical Therapy [address] [place] [phone] Fede Rock, MARIA T 09/20/2025 12:30 PM EST PACE Home Care / PACE Home Visit [facility] Marie [facility] [address] [place] [phone] Lata Ford 09/20/2025 11:30 AM EST Treatment Anne Marie [facility] MA Occupational Therapy [address] [place] [phone] Anastasia Barnes COTA 09/20/2025 PACE Admissions [facility] Clinic [address] [place] [phone] Liberty Burns, GRADY Recurrent falls (Primary Dx); Lewy body dementia, unspecified dementia severity, unspecified whether behavioral, psychotic, or mood disturbance or anxiety (CMS/HCC V24, CMS/HCC V28); Parkinson's disease, unspecified whether dyskinesia present, unspecified whether manifestations fluctuate (CMS/HCC V24, CMS/HCC V28) 09/20/2025 PACE Fall Anne aMrie [facility] MA [facility] [address] [place] [phone] Anne-Marie Cook, TOAN 09/20/2025 PACE Fall [facility] [address] [place] [phone] Anne-Marie Cook, CONSTRUCTION HELPER 09/19/2025 1:00 PM EST Office Visit [facility] [address] [place] [phone] Carla Zuniga, GIOVANNA Orthostatic hypotension due to Parkinson disease (CMS/HCC V24, CMS/HCC V28) (Primary Dx); 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 (CMS/HCC V24, CMS/HCC V28); Multiple falls 09/19/2025 8:00 AM EST PACE Home Care / PACE Home Visit Anne Marie [facility] [address] [place] [phone] Brigida Hendricks 09/19/2025 Plan of Care [facility] [address] [place] [phone] 09/18/2025 PACE Fall [facility] [address] [place] [phone] Anne-Marie Cook PCA 09/16/2025 2:30 PM EST [facility] [address] [place] [phone] Anastasia Barnes COTA 09/16/2025 9:00 AM EST PACE Home Care / PACE Home Visit [facility] [address] [place] [phone] Lata Ford 09/16/2025 7:45 AM EST Clinical Support [facility] [address] [place] [phone] Federica Quintana LPN 09/14/2025 12:30 PM EST PACE Home Care / PACE Home Visit [facility] [address] [place] [phone] Melissa Raza 09/14/2025 8:00 AM EST PACE Home Care / PACE Home Visit [facility] [address] [place] [phone] Melissa Raza 09/14/2025 [facility] [place] [facility] [address] [place] [phone] Vy Espitia RN 09/13/2025 [facility]phone [facility] [place] [facility] [address] [place] [phone] Mae Cintron, RN 09/12/2025 1:30 PM EST [facility] [place] [facility] [address] [place] [phone] Mae Cintron, RN Orthostatic hypotension (Primary Dx) 09/12/2025 1:30 PM EST [facility] [address] [place] [phone] Carla Zuniga, GIOVANNA Cervicalgia (Primary Dx); Hard of hearing; Orthostatic hypotension due to Parkinson disease (CMS/[facility] V24, CMS/[facility] V28); Age-related cataract of left eye, unspecified age-related cataract type; Tinnitus, bilateral; Vertigo; 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 (CMS/HCC V24, CMS/[facility] V28); Seasonal allergic rhinitis due to pollen; Primary hypertension; Bradycardia; Chronic idiopathic constipation; Edentulous; Dry mouth; Benign prostatic hyperplasia with urinary frequency; Hypercholesterolemia ; Depression, major, recurrent, mild (CMS/[facility] V24); Anxiety; Unsteady gait; Intolerance to cold; Multiple falls; Hallucinations; Parkinsonian tremor (CMS/[facility] V24, CMS/[facility] V28); Transient alteration of awareness 09/12/2025 8:00 AM EST PACE Home Care / PACE Home Visit Anne Marie [facility] [address] [place] [phone] Brigida Hendricks 09/11/2025 5:30 PM EST PACE Home Care / PACE Home Visit [facility] Marie [facility] [address] [place] [phone] Brigida Hendricks 09/11/2025 12:30 PM EST PACE Home Care / PACE Home Visit [facility] Marie [facility] [address] [place] [phone] Brigida Hendricks 09/11/2025 9:15 AM EST PACE Home Care / PACE Home Visit [facility] Marie [facility] [address] [place] [phone] Brigida Hendricks 09/10/2025 12:00 PM EST PACE Home Care / PACE Home Visit [facility] [address] [place] [phone] Brigida Hendricks 09/09/2025 4:30 PM EST PACE Home Care / PACE Home Visit [facility] [address] [place] [phone] Lata Ford 09/09/2025 12:30 PM EST PACE Home Care / PACE Home Visit [facility] [address] [place] [phone] Lata Ford 09/09/2025 8:45 AM EST Clinical Support [facility] [address] [place] [phone] Federica Quintana LPN 09/09/2025 8:15 AM EST PACE Home Care / PACE Home Visit [facility] [address] [place] [phone] Lata Ford 09/08/2025 Telephone [facility] [place] [facility]ACE [address] [phone] Carla Zuniga, GIOVANNA 09/07/2025 12:00 PM EST Treatment [facility] Marie [facility] MA Occupational Therapy [address] [place] [phone] Antonio Andrade OT 09/05/2025 12:00 PM EST Office Visit [facility] [place] [facility]ACE [address] [phone] Carla Zuniga, GIOVANNA 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 (CMS/HCC V24, CMS/HCC V28) (Primary Dx); Transient alteration of awareness; Primary hypertension; Orthostatic hypotension due to Parkinson disease (CMS/HCC V24, CMS/HCC V28); Acute cystitis without hematuria 09/05/2025 PACE Admissions [facility] Clinic [address] [place] [phone] Liberty Burns, GRADY Orthostatic hypotension (Primary Dx); Near syncope 09/04/2025 12:30 PM EST PACE Home Care / PACE Home Visit [facility] [address] [place] [phone] Lata Ford 09/02/2025 4:30 PM EST PACE Home Care / PACE Home Visit [facility] [address] [place] [phone] Liliana Lata 09/02/2025 12:30 PM EST PACE Home Care / PACE Home Visit [facility] [address] [place] [phone] Liliana Lata 09/02/2025 12:00 PM EST Evaluation [facility] Marie [facility] MA Physical Therapy [address] [place] [phone] Fede Rock, PT 09/02/2025 8:30 AM EST PACE Home Care / PACE Home Visit [facility] Marie [facility] [address] [place] [phone] [facility] 08/31/2025 8:30 AM EST PACE Home Care / PACE Home Visit [facility] Marie [facility] [address] [place] [phone] [facility] 08/31/2025 Telephone [facility] Marie [facility] MA Physical Therapy [address] [place] [phone] Fede Rock, PT 08/30/2025 12:00 PM EST PACE Home Care / PACE Home Visit [facility] [address] [place] [phone] Bill Lei 08/30/2025 9:00 AM EST PACE Home Care / PACE Home Visit [facility] [address] [place] [phone] [facility] 08/30/2025 Clinical Support [facility] [place] [facility] [address] [place] [phone] Federica Quintana LPN 08/29/2025 12:30 PM EST PACE Home Care / PACE Home Visit [facility] [address] [place] [phone] Melissa Raza 08/29/2025 8:30 AM EST P[facility] Home Care / [facility] Home Visit [facility] [address] [place] [phone] Melissa Raza 08/28/2025 12:30 PM EST PACE Home Care / PACE Home Visit [facility] [address] [place] [phone] Jesse Alfred 08/26/2025 12:00 PM EST PACE Home Care / PACE Home Visit [facility] [place] [facility] [address] [place] [phone] Jesse Alfred 08/26/2025 8:30 AM EST PACE Home Care / PACE Home Visit [facility] [place] [facility] [address] [place] [phone] Lata Ford 08/24/2025 1:00 PM EST Office Visit [facility] [place] [facility] [address] [place] [phone] Ilsa Stacy MD Orthostatic hypotension due to Parkinson disease (CMS/HCC V24, CMS/HCC V28) (Primary Dx); Unsteady gait; Multiple falls; Vertigo; History of cochlear implant; Depression, major, recurrent, mild (CMS/HCC V24); Hallucinations; Postural dizziness with presyncope; Edentulous; Parkinsonian tremor (CMS/HCC V24, CMS/HCC V28) 08/18/2025 12:00 PM EST [facility] Assessment [facility] [address] [place] [phone] Antonio Andrade OT Orthostatic hypotension due to Parkinson disease (CMS/HCC V24, CMS/HCC V28) (Primary Dx) 08/18/2025 PACE Fall [facility] [address] [place] [phone] Antonio Andrade OT 08/18/2025 PACE Fall [facility] [address] [place] [phone] Antonio Andrade OT 08/14/2025 5:30 PM EST PACE Home Care / PACE Home Visit [facility] [address] [place] [phone] Brigida Hendricks 08/14/2025 12:30 PM EST PACE Home Care / PACE Home Visit [facility] [address] [place] [phone] Brigida Hendricks 08/14/2025 8:30 AM EST PACE Home Care / PACE Home Visit [facility] [address] [place] [phone] Brigida Hendricks 08/13/2025 9:00 AM EST PACE Home Care / PACE Home Visit [facility] [address] [place] [phone] Brigida Hendricks 08/11/2025 1:30 PM EST Treatment [facility] [address] [place] [phone] Anastasia Barnes COTA 08/08/2025 1:00 PM EST Treatment [facility] [address] [place] [phone] Anastasia Barnes, BURDEN 08/04/2025 2:00 PM EDT Treatment [facility] Physical Therapy [address] [place] [phone] Marlene Martinez PTA 08/04/2025 1:00 PM EDT Treatment [facility] [address] [place] [phone] Anastasia Barnes, BURDEN 08/03/2025 12:30 PM EDT PACE Home Care / PACE Home Visit [facility] [address] [place] [phone] Kathy Jon 08/03/2025 10:00 AM EDT Clinical Support [facility] [address] [place] [phone] Kirsten Umanzor RN 08/02/2025 1:00 PM EDT Treatment [facility] Occup[facility] [address] [place] [phone] Anastasia Barnes COTA 08/02/2025 12:30 PM EDT PACE Home Care / PACE Home Visit [facility] [address] [place] [phone] Lata Ford 08/02/2025 8:00 AM EDT PACE Home Care / PACE Home Visit [facility] [address] [place] [phone] Tiana Sibley 08/01/2025 Telephone [facility] Physical Therapy [address] [place] [phone] Marlene Martinez, LEAD HANDLER 07/31/2025 5:30 PM EDT PACE Home Care / PACE Home Visit [facility] [address] [place] [phone] Brigida Hendricks 07/31/2025 12:30 PM EDT PACE Home Care / PACE Home Visit [facility] [address] [place] [phone] Brigida Hendricks 07/31/2025 8:30 AM EDT PACE Home Care / PACE Home Visit [facility] [address] [place] [phone] Brigida Hendricks 07/30/2025 9:00 AM EDT PACE Home Care / [facility] Visit [facility] [address] [place] [phone] Brigida Hendricks 07/29/2025 2:00 PM EDT Treatment [facility] Physical Therapy [address] [place] [phone] Marlene Martinez, LEAD HANDLER 07/28/2025 1:00 PM EDT Treatment [facility] Occup[facility] [address] [place] [phone] Anastasia Barnes COTA 07/27/2025 2:00 PM EDT Treatment [facility] Physical Therapy [address] [place] [phone] Marlene Martinez, LEAD HANDLER 07/27/2025 11:00 AM EDT Clinical Support [facility] [address] [place] [phone] Kirsten Umanzor RN 07/26/2025 12:00 PM EDT PACE Home Care / PACE Home Visit [facility] [address] [place] [phone] Tiana Sibley 07/26/2025 9:00 AM EDT PACE External Visit [facility] Marie [facility] [address] [phone] 07/26/2025 7:30 AM EDT PACE Home Care / PACE Home Visit [facility] [address] [place] [phone] Tiana Sibley 07/22/2025 2:00 PM EDT Treatment [facility] Physical Therapy [address] [place] [phone] Marlene Martinez, LEAD HANDLER 07/21/2025 11:30 AM EDT Treatment [facility] Occupational Therapy [address] [place] [phone] Anastasia Barnes COTA 07/20/2025 1:00 PM EDT Office Visit Anne Marie [facility] [address] [place] [phone] Carla Zuniga NP Orthostatic hypotension due to Parkinson disease (CMS/HCC V24, CMS/HCC V28) (Primary Dx); Parkinson's disease without dyskinesia, with fluctuating manifestations (CMS/HCC V24, CMS/HCC V28); Primary hypertension; Hypercholesterolemia ; Benign prostatic hyperplasia with urinary frequency; Depression, major, recurrent, mild (CMS/HCC V24); Bradycardia 07/20/2025 8:00 AM EDT PACE Home Care / PACE Home Visit [facility] [address] [place] [phone] Brigida Hendricks 07/20/2025 Telephone [facility] [address] [place] [phone] Anastasia Barnes COTA 07/19/2025 2:00 PM EDT Treatment [facility] [address] [place] [phone] Marlene Martinez, LEAD HANDLER 07/19/2025 8:00 AM EDT PACE Home Care / PACE Home Visit [facility] [address] [place] [phone] Tiana Sibley 07/17/2025 5:00 PM EDT PACE Home Care / PACE Home Visit [facility] [address] [place] [phone] Brigida Hendricks 07/17/2025 8:30 AM EDT PACE Home Care / PACE Home Visit [facility] [address] [place] [phone] Brigida Hendricks 07/15/2025 2:00 PM EDT Treatment [facility] [address] [place] [phone] Marlene Martinez, LEAD HANDLER 07/14/2025 11:00 AM EDT Treatment [facility] [address] [place] [phone] Cassie Ramires, PT 07/14/2025 10:45 AM EDT Treatment [facility] [address] [place] [phone] Antonio Andrade, OT 07/14/2025 8:00 AM EDT PACE Home Care / PACE Home Visit [facility] [address] [place] [phone] Tiana Sibley from Last 3 Months Immunizations Immunization Administration Dates Next Due Influenza trivalent, 0.5mL ( Fluad) 65yo and older 09/07/2025(Deferred: Patient decision - late entry refusal in Jul) Moderna SARS-CoV-2 COVID-19, mRNA, LNP-S, preservative free [...] Parkinson disease (CMS/HCC V24, CMS/HCC V28) Hypertension Double vision 11/17/2024 Family History Medical History Relation Name Comments [...] on file Sexual Orientation Not on file Last Filed Vital Signs Vital Sign Reading Time Taken Comments Blood Pressure 138/64 09/19/2025 2:38 PM EST Pulse 64 09/19/2025 12:05 PM EST Temperature 36.3 C (97.3 F) 09/19/2025 2:38 PM EST Respiratory Rate 18 09/19/2025 2:38 PM EST Oxygen Saturation 98% 09/19/2025 2:38 PM EST Inhaled Oxygen Concentration - - Weight 60.3 kg (133 lb) 09/19/2025 2:38 PM EST Height 167.6 cm (5' 6 ) 03/30/2025 3:00 PM EDT Body Mass Index 21.47 03/30/2025 3:00 PM EDT Plan of Treatment Upcoming Encounters Date Type Department Care Team (Late st Contact Info) Description 09/26/2025 1:30 PM EST PACE Home Care / [facility] Home Visit [facility] [address] [place] [phone] Asmita Matias 09/26/2025 1:30 PM EST [facility] Assessment [facility] Physical [facility] [address] [place] [phone] Fede Rock PT 09/26/2025 5:00 PM EST PACE Home Care / P[facility] Home Visit [facility] [address] [place] [phone] Daksha Yates 09/27/2025 8:00 AM EST PACE Home Care / PACE Home Visit [facility] [address] [place] [phone] Tiana Sibley 09/27/2025 12:30 PM EST PACE Home Care / P[facility] Home Visit [facility] [address] [place] [phone] Lata Ford 09/27/2025 5:30 PM EST PACE Home Care / P[facility] Home Visit [facility] [address] [place] [phone] Daksha Yates 09/28/2025 8:45 AM EST Clinical Support [facility] [address] [place] [phone] Federica Quintana LPN 09/28/2025 9:00 AM EST PACE Home Care / P[facility] Home Visit [facility] [address] [place] [phone] Melissa Raza 09/28/2025 12:30 PM EST PACE Home Care / PACE Home Visit [facility] [address] [place] [phone] Melissa Raza 09/28/2025 5:30 PM EST PACE Home Care / P[facility] Home Visit [facility] [address] [place] [phone] Daksha Yates 09/30/2025 8:30 AM EST PACE Home Care / PACE Home Visit [facility] [address] [place] [phone] Tiana Sibley 09/30/2025 9:00 AM EST Clinical Support [facility] [address] [place] [phone] Federica Quintana LPN 09/30/2025 12:30 PM EST PACE Home Care / [facility] Home Visit [facility] [address] [place] [phone] Lata Ford 09/30/2025 5:30 PM EST PACE Home Care / P[facility] Home Visit [facility] [address] [place] [phone] Tiana Sibley 10/01/2025 8:30 AM EST PACE Home Care / P[facility] Home Visit [facility] [address] [place] [phone] Tiana Sibley 10/01/2025 12:30 PM EST PACE Home Care / PACE Home Visit [facility] [address] [place] [phone] Tiana Sibley 10/01/2025 5:30 PM EST PACE Home Care / PACE Home Visit [facility] [address] [place] [phone] Tiana Sibley 10/02/2025 8:00 AM EST PACE Home Care / PACE Home Visit [facility] [address] [place] [phone] Daksha Yates 10/02/2025 12:30 PM EST PACE Home Care / P[facility] Home Visit [facility] [address] [place] [phone] Trudy Shilpichristian 10/02/2025 5:30 PM EST PACE Home Care / PACE Home Visit [facility] [address] [place] [phone] Daksha Yates 10/03/2025 8:00 AM EST PACE Home Care / PACE Home Visit [facility] [address] [place] [phone] Melissa Raza 10/03/2025 8:45 AM EST Clinical Support [facility] [address] [place] [phone] Federica Quintana LPN 10/03/2025 12:30 PM EST PACE Home Care / [facility] Home Visit [facility] [address] [place] [phone] Melissa Raza 10/03/2025 5:30 PM EST PACE Home Care / PACE Home Visit [facility] [address] [place] [phone] [facility] 10/04/2025 8:00 AM EST PACE Home Care / P[facility] Home Visit [facility] [address] [place] [phone] Tiana Sibley 10/04/2025 12:30 PM EST PACE Home Care / P[facility] Home Visit [facility] [address] [place] [phone] Lata Ford 10/04/2025 5:30 PM EST PACE Home Care / PACE Home Visit [facility] [address] [place] [phone] Daksha Yates 10/05/2025 8:00 AM EST PACE Home Care / P[facility] Home Visit [facility] [address] [place] [phone] Melissa Raza 10/05/2025 12:30 PM EST PACE Home Care / PACE Home Visit [facility] [address] [place] [phone] Melissa Raza 10/05/2025 5:30 PM EST PACE Home Care / PACE Home Visit [facility] [address] [place] [phone] [facility] 10/06/2025 8:00 AM EST PACE Home Care / P[facility] Home Visit [facility] [address] [place] [phone] Tiana Sibley 10/06/2025 12:30 PM EST PACE Home Care / PACE Home Visit [facility] [address] [place] [phone] Trudy [facility] 10/06/2025 5:30 PM EST PACE Home Care / PACE Home Visit [facility] [address] [place] [phone] Trudy [facility] 10/07/2025 8:30 AM EST PACE Home Care / PACE Home Visit [facility] [address] [place] [phone] Tiana Sibley 10/07/2025 12:30 PM EST PACE Home Care / PACE Home Visit [facility] [address] [place] [phone] [facility] 10/07/2025 5:30 PM EST PACE Home Care / PACE Home Visit [facility] [address] [place] [phone] Tiana Sibley 10/08/2025 8:30 AM EST PACE Home Care / PACE Home Visit [facility] [address] [place] [phone] Tiana Sibley 10/08/2025 12:30 PM EST PACE Home Care / PACE Home Visit [facility] [address] [place] [phone] Tiana Sibley 10/08/2025 5:00 PM EST PACE Home Care / PACE Home Visit [facility] [address] [place] [phone] Tiana Sibley 10/09/2025 8:30 AM EST PACE Home Care / PACE Home Visit [facility] [address] [place] [phone] Brigida Hendricks 10/09/2025 12:30 PM EST PACE Home Care / PACE Home Visit [facility] [address] [place] [phone] Brigida Hendricks 10/09/2025 5:30 PM EST PACE Home Care / PACE Home Visit [facility] [address] [place] [phone] Brigida Hendricks 10/10/2025 8:00 AM EST PACE Home Care / P[facility] Home Visit [facility] [address] [place] [phone] Melissa Raza 10/10/2025 12:30 PM EST PACE Home Care / PACE Home Visit [facility] [address] [place] [phone] Melissa Raza 10/10/2025 5:30 PM EST PACE Home Care / PACE Home Visit [facility] [address] [place] [phone] Daksha Yates 10/11/2025 8:00 AM EST PACE Home Care / PACE Home Visit [facility] [address] [place] [phone] Tiana Sibley 10/11/2025 12:30 PM EST PACE Home Care / PACE Home Visit [facility] [address] [place] [phone] Lata Ford 10/11/2025 5:30 PM EST PACE Home Care / PACE Home Visit [facility] [address] [place] [phone] Daksha Yates 10/12/2025 8:00 AM EST PACE Home Care / PACE Home Visit [facility] [address] [place] [phone] Melissa Raza 10/12/2025 12:30 PM EST PACE Home Care / PACE Home Visit [facility] [address] [place] [phone] Melissa Raza 10/12/2025 5:30 PM EST PACE Home Care / PACE Home Visit [facility] [address] [place] [phone] Daksha Yates 10/13/2025 8:00 AM EST PACE Home Care / PACE Home Visit [facility] [address] [place] [phone] Tiana Sibley 10/13/2025 12:30 PM EST PACE Home Care / PACE Home Visit [facility] [address] [place] [phone] Daksha Yates 10/13/2025 5:30 PM EST PACE Home Care / PACE Home Visit [facility] [address] [place] [phone] Daksha Yates 10/14/2025 8:30 AM EST PACE Home Care / PACE Home Visit [facility] [address] [place] [phone] Tiana Sibley 10/14/2025 12:30 PM EST PACE Home Care / PACE Home Visit [facility] [address] [place] [phone] Daksha Yates 10/14/2025 5:30 PM EST PACE Home Care / PACE Home Visit [facility] [address] [place] [phone] Tiana Sibley 10/15/2025 8:30 AM EST PACE Home Care / [facility] Visit [facility] [address] [place] [phone] Tiana Sibley 10/15/2025 12:30 PM EST PACE Home Care / PACE Home Visit [facility] [address] [place] [phone] Tiana Sibley 10/15/2025 5:30 PM EST PACE Home Care / PACE Home Visit [facility] [address] [place] [phone] Tiana Sibley 10/16/2025 8:00 AM EST PACE Home Care / P[facility] Home Visit [facility] [address] [place] [phone] Daksha Yates 10/16/2025 12:30 PM EST PACE Home Care / P[facility] Home Visit [facility] [address] [place] [phone] Daksha Yates 10/16/2025 5:30 PM EST PACE Home Care / P[facility] Home Visit [facility] [address] [place] [phone] Daksha Yates 10/17/2025 8:00 AM EST PACE Home Care / PACE Home Visit [facility] [address] [place] [phone] Melissa Raza 10/17/2025 12:30 PM EST PACE Home Care / PACE Home Visit [facility] [address] [place] [phone] Melissa Raza 10/17/2025 5:30 PM EST PACE Home Care / PACE Home Visit [facility] [address] [place] [phone] Daksha Yates 10/18/2025 8:00 AM EST PACE Home Care / P[facility] Home Visit [facility] [address] [place] [phone] Tiana Sibley 10/18/2025 12:30 PM EST PACE Home Care / P[facility] Home Visit [facility] [address] [place] [phone] Lata Ford 10/18/2025 5:30 PM EST PACE Home Care / P[facility] Home Visit [facility] [address] [place] [phone] Daksha Yates 10/19/2025 8:00 AM EST PACE Home Care / P[facility] Home Visit [facility] [address] [place] [phone] Melissa Raza 10/19/2025 12:30 PM EST PACE Home Care / P[facility] Home Visit [facility] [address] [place] [phone] Melissa Raza 10/19/2025 5:30 PM EST PACE Home Care / P[facility] Visit [facility] [address] [place] [phone] Daksha Yates 10/20/2025 8:00 AM EST PACE Home Care / P[facility] Visit [facility] [address] [place] [phone] Tiana Sibley 10/20/2025 12:30 PM EST PACE Home Care / P[facility] Visit [facility] [address] [place] [phone] Daksha Yates 10/20/2025 5:30 PM EST PACE Home Care / P[facility] Home Visit [facility] [address] [place] [phone] Daksha Yates 10/21/2025 8:30 AM EST PACE Home Care / P[facility] Home Visit [facility] [address] [place] [phone] Tiana Sibley 10/21/2025 12:30 PM EST PACE Home Care / P[facility] Visit [facility] [address] [place] [phone] Daksha Yates 10/21/2025 5:30 PM EST PACE Home Care / P[facility] Visit [facility] [address] [place] [phone] Tiana Sibley 10/22/2025 8:30 AM EST PACE Home Care / P[facility] Home Visit [facility] [address] [place] [phone] Tiana Sibley 10/22/2025 12:30 PM EST PACE Home Care / P[facility] Visit [facility] [address] [place] [phone] Tiana Sibley 10/22/2025 5:00 PM EST PACE Home Care / P[facility] Visit [facility] [address] [place] [phone] Tiana Sibley 10/23/2025 8:30 AM EST PACE Home Care / P[facility] Home Visit [facility] [address] [place] [phone] Brigida Hendricks 10/23/2025 12:30 PM EST PACE Home Care / P[facility] Visit [facility] [address] [place] [phone] Brigida Hendricks 10/23/2025 5:30 PM EST PACE Home Care / P[facility] Home Visit [facility] [address] [place] [phone] Brigida Hendricks 10/24/2025 8:00 AM EST PACE Home Care / P[facility] Visit [facility] [address] [place] [phone] Melissa Raza 10/24/2025 12:30 PM EST PACE Home Care / P[facility] Visit [facility] [address] [place] [phone] Melissa Raza 10/24/2025 5:30 PM EST PACE Home Care / P[facility] Visit [facility] [address] [place] [phone] Daksha Yates 10/25/2025 8:00 AM EST PACE Home Care / [facility] Visit [facility] [address] [place] [phone] Tiana Sibley 10/25/2025 12:30 PM EST PACE Home Care / [facility] Visit [facility] [address] [place] [phone] Lata Ford 10/25/2025 5:30 PM EST PACE Home Care / P[facility] Visit [facility] [address] [place] [phone] Daksha Yates 10/26/2025 8:00 AM EST PACE Home Care / P[facility] Visit [facility] [address] [place] [phone] Melissa Raza 10/26/2025 12:30 PM EST PACE Home Care / P[facility] Visit [facility] [address] [place] [phone] Melissa Raza 10/26/2025 5:30 PM EST PACE Home Care / P[facility] Visit [facility] [address] [place] [phone] Daksha Yates 10/27/2025 8:00 AM EST PACE Home Care / P[facility] Visit [facility] [address] [place] [phone] Tiana Sibley 10/27/2025 12:30 PM EST PACE Home Care / [facility] Visit [facility] [address] [place] [phone] Daksha Yates 10/27/2025 5:30 PM EST PACE Home Care / [facility] Services [address] [place] [phone] [facility]berly [facility] 10/28/2025 8:30 AM EST [facility] [place] [facility] [place] [facility] [place] [facility] [address] [place] [phone] Tiana Sibley 10/28/2025 12:30 PM EST [facility] [place] [facility] [place] [facility] [address] [place] [phone] Daksha Yates 10/28/2025 5:30 PM EST [facility] [place] [facility] [place] [facility] [place] [facility] [address] [place] [address] Tiana Sibley 10/29/2025 8:30 AM EST [facility] [place] [facility] [place] [facility] [address] [place] [phone] Tiana Sibley 10/29/2025 12:30 PM EST [facility] / [place] [facility] [place] [facility] [place] [facility] [address] [place] [phone] Tiana Sibley 10/29/2025 5:30 PM EST [facility] [place] [facility] [place] [facility] [address] [place] [phone] Tiana Sibley 10/30/2025 8:00 AM EST [facility] [place] [facility] [place] [facility] [place] [facility] [address] [place] [phone] [facility] 10/30/2025 12:30 PM EST [facility] [place] [facility] [place] [facility] [place] [facility] [address] [place] [phone] Dansereadaniel [facility] 10/30/2025 5:30 PM EST [facility] [place] [facility] [place] [facility] [place] [facility] [address] [place] [phone] Dansereadaniel [facility] 10/31/2025 8:00 AM EST [facility] [place] [facility] [place] [facility] [address] [place] [phone] Melissa Raza 10/31/2025 12:30 PM EST [facility] [place] [facility] [place] [facility] [address] [place] [phone] Melissa Raza 10/31/2025 5:30 PM EST [facility] [place] [facility] [place] [facility] [place] [facility] [address] [place] [phone] Daksha Yates 11/01/2025 8:00 AM EST [facility] [place] [facility] [place] [facility] [place] [facility] [address] [place] [phone] Tiana Sibley 11/01/2025 12:30 PM EST [facility] [place] [facility] [place] [facility] [place] [facility] [address] [place] [phone] Lata Ford 11/01/2025 5:30 PM EST [facility] [place] [facility] [place] [facility] [address] [place] [phone] Daksha Yates 11/02/2025 8:00 AM EST [facility] [place] [facility] [place] [facility] [address] [place] [phone] Melissa Raza 11/02/2025 12:30 PM EST [facility] [place] [facility] [place] [facility] [address] [place] [phone] Melissa Raza 11/02/2025 5:30 PM EST [facility] [place] [facility] [place] [facility] [place] [facility] [address] [place] [phone] Daksha Yates 11/03/2025 8:00 AM EST [facility] Home [facility] / [place] [facility] [place] [facility] [address] [place] [phone] Tiana Sibley 11/03/2025 12:30 PM EST [facility] Home [facility] / [place] [facility] [place] [facility] [address] [place] [phone] Daksha Yates 11/03/2025 5:30 PM EST [facility] Home [facility] / [place] [facility] [place] [facility] [address] [place] [phone] Daksha Yates 11/04/2025 8:30 AM EST [facility] Home [facility] / [place] [facility] [place] [facility] [address] [place] [phone] Tiana Sibley 11/04/2025 12:30 PM EST [facility] [place] [facility] [place] [facility] [address] [place] [phone] Daksha Yates 11/04/2025 5:30 PM EST [facility] [place] [facility] [place] [facility] [address] [place] [phone] Tiana Sibley 11/05/2025 8:30 AM EST [facility] [place] [facility] [place] [facility] [address] [place] [phone] Tiana Sibley 11/05/2025 12:30 PM EST [facility] [place] [facility] [place] [facility] [address] [place] [phone] Tiana Sibley 11/05/2025 5:00 PM EST [facility] [place] [facility] [place] [facility] [address] [place] [phone] Tiana Sibley 11/06/2025 8:30 AM EST [facility] [place] [facility] [place] [facility] [address] [place] [phone] Brigida Hendricks 11/06/2025 12:30 PM EST [facility] [place] [facility] [place] [facility] [place] [facility] [address] [place] [phone] Brigida Hendricks 11/06/2025 5:30 PM EST [facility] Home [facility] / [place] [facility] [place] [facility] [address] [place] [phone] Brgiida Hendricks 11/07/2025 8:00 AM EST [facility] Home [facility] / [place] [facility] [place] [facility] [place] [facility] [address] [place] [phone] Melissa Raza 11/07/2025 12:30 PM EST [facility] Home [facility] / [place] [facility] [place] [facility] [place] [facility] [address] [place] [phone] Melissa Raza 11/07/2025 5:30 PM EST P[facility] Home Care / [place] [facility] [place] [facility] [address] [place] [phone] Daksha Yates 11/08/2025 8:00 AM EST [facility] [place] [facility] [place] [facility] [address] [place] [phone] Tiana Sibley 11/08/2025 12:30 PM EST [facility] [place] [facility] [place] [facility] [address] [place] [phone] Lata Ford 11/08/2025 5:30 PM EST [facility] / [place] [facility] [place] [facility] [address] [place] [phone] Daksha Yates 11/09/2025 8:00 AM EST [facility] [place] [facility] [place] [facility] [address] [place] [phone] Melissa Raza 11/09/2025 12:30 PM EST [facility] Home [facility] / [place] [facility] [place] [facility] [place] [facility] [address] [place] [phone] Melissa Raza 11/09/2025 5:30 PM EST [facility] Home [facility] / [place] [facility] [place] [facility] [address] [place] [phone] Daksha Yates 11/10/2025 8:00 AM EST [facility] Home [facility] / [place] [facility] [place] [facility] [address] [place] [phone] Tiana Sibley 11/10/2025 12:30 PM EST [facility] Home [facility] [place] [facility] [place] [facility] [place] [facility] [address] [place] [phone] Daksha Ytaes 11/10/2025 5:30 PM EST [facility] Home [facility] [place] [facility] [place] [facility] [place] [facility] [address] [place] [phone] Daksha Yates 11/11/2025 8:30 AM EST [facility] Home [facility] [place] [facility] [place] [facility] [address] [place] [phone] Tiana Sibley 11/11/2025 12:30 PM EST [facility] Home [facility] / [place] [facility] [place] [facility] [address] [place] [phone] Daksha Yates 11/11/2025 5:30 PM EST [facility] Home [facility] / [place] [facility] [place] [facility] [address] [place] [phone] Tiana Sibley 11/12/2025 8:30 AM EST [facility] [place] [facility] [place] [facility] [address] [place] [phone] Tiana Sibley 11/12/2025 12:30 PM EST [facility] [place] [facility] [place] [facility] [place] [facility] [address] [place] [phone] Tiana Sibley 11/12/2025 5:30 PM EST [facility] Home [facility] / [place] [facility] [place] [facility] [place] [facility] [address] [place] [phone] Tiana Sibley 11/13/2025 8:00 AM EST [facility] Home [facility] / [place] [facility] [place] [facility] [place] [facility] [address] [place] [phone] Daksha Yates 11/13/2025 12:30 PM EST [facility] Home [facility] / [place] [facility] [place] [facility] [address] [place] [phone] Daksha Yates 11/13/2025 5:30 PM EST [facility] Home [facility] / [place] [facility] [place] [facility] [address] [place] [phone] Daksha Yates 11/14/2025 8:00 AM EST [facility] Home [facility] / [place] [facility] [place] [facility] [place] [facility] [address] [place] [phone] Melissa Raza 11/14/2025 12:30 PM EST [facility] Home [facility] / [place] [facility] [place] [facility] [place] [facility] [address] [place] [phone] Melissa Raza 11/14/2025 5:30 PM EST [facility] Home [facility] / [place] [facility] [place] [facility] [place] [facility] [address] [place] [phone] Daksha Yates 11/15/2025 8:00 AM EST [facility] Home [facility] / [place] [facility] [place] [facility] [address] [place] [phone] Tiana Sibley 11/15/2025 12:30 PM EST [facility] Home [facility] [place] [facility] [place] [facility] [address] [place] [phone] Lata Ford 11/15/2025 5:30 PM EST [facility] Home [facility] / [place] [facility] [place] [facility] [place] [facility] [address] [place] [phone] Daksha Yates 11/16/2025 8:00 AM EST [facility] / [place] [facility] [place] [facility] [place] [facility] [address] [place] [phone] Melissa Raza 11/16/2025 12:30 PM EST [facility] Home [facility] / [place] [facility] [place] [facility] [place] [facility] [address] [place] [phone] Melissa Raza 11/16/2025 5:30 PM EST [facility] Home [facility] / [place] [facility] [place] [facility] [place] [facility] [address] [place] [phone] Daksha Yates 11/17/2025 8:00 AM EST [facility] Home [facility] / [place] [facility] [place] [facility] [place] [facility] [address] [place] [phone] Tiana Sibley 11/17/2025 12:30 PM EST [facility] Home [facility] / [place] [facility] [place] [facility] [place] [facility] [address] [place] [phone] [facility]readaniel, [facility] 11/17/2025 5:30 PM EST [facility] Home [facility] [place] [facility] [place] [facility] [place] [facility] [address] [place] [phone] Dansereau, Sheana 11/18/2025 8:30 AM EST [facility] Home [facility] / [place] [facility] [place] [facility] [place] [facility] [address] [place] [phone] Tiana Sibley 11/18/2025 12:30 PM EST [facility] Home [facility] / [place] [facility] [place] [facility] [place] [facility] [address] [place] [phone] KeshaDaksha harris 11/18/2025 5:30 PM EST P[facility] Home [facility] / [place] [facility] [place] [facility] [place] [facility] [address] [place] [phone] Tiana Sibley 11/19/2025 8:30 AM EST [facility] Home [facility] / [place] [facility] [place] [facility] [place] [facility] [address] [place] [phone] Tiana Sibley 11/19/2025 12:30 PM EST [facility] Home [facility] / [place] [facility] [place] [facility] [place] [facility] [address] [place] [phone] Tiana Sibley 11/19/2025 5:00 PM EST [facility] Home [facility] / [place] [facility] [place] [facility] [place] [facility] [address] [place] [phone] Tiana Sibley 11/20/2025 8:30 AM EST [facility] Home [facility] [place] [facility] [place] [facility] [place] [facility] [address] [place] [phone] Brigida Hendricks 11/20/2025 12:30 PM EST [facility] Home [facility] / [place] [facility] [place] [facility] [place] [facility] [address] [place] [phone] Brigida Hendricks 11/20/2025 5:30 PM EST [facility] Home [facility] [place] [facility] [place] [facility] [place] [facility] [address] [place] [phone] Brigida Hendricks 11/21/2025 8:00 AM EST [facility] Home [facility] / [place] [facility] [place] [facility] [place] [facility] [address] [place] [phone] Melissa Raza 11/21/2025 12:30 PM EST PACE Home Care / PACE [facility] Visit [facility] [address] [place] [phone] Melissa Raza 11/21/2025 5:30 PM EST [facility] Home [facility] / [place] [facility] [place] [facility] [address] [place] [phone] Daksha Yates 11/22/2025 8:00 AM EST P[facility] Home Care / PACE Home Visit [facility] [address] [place] [phone] Tiana Sibley 11/22/2025 12:30 PM EST PACE Home Care / PACE Home Visit [facility] [address] [place] [phone] Lata Ford 11/22/2025 5:30 PM EST P[facility] Home Care / PACE Home Visit [facility] [address] [place] [phone] Daksha Yates Health Maintenance Due Date Last Done Comments [...] (#1) 2025 Hypertension/CHF/CAD Annual BMP Blood Test 09/22/2026 09/22/2025, 09/05/2025, 09/27/2024 Cholesterol Screening (Lipid Panel) 10/17/2028 10/17/2023 Pneumococcal Vaccine: 50+ Years Completed 08/09/2022, 10/09/2021 Depression Screening Completed 03/25/2025 HIB Vaccines [...] Procedure Name Priority Date/Time Associated Diagnosis Comments BASIC METABOLIC PANEL Routine 09/22/2025 4:49 AM EST Parkinsonism, unspecified (CMS/HCC V24, CMS/HCC V28) COMPLETE BLOOD COUNT Routine 09/22/2025 4:49 AM EST Parkinsonism, unspecified (CMS/HCC V24, CMS/HCC V28) URINALYSIS WITH REFLEX MICROSCOPIC AND CULTURE Routine 09/12/2025 2:36 PM EST Orthostatic hypotension URINALYSIS WITH REFLEX MICROSCOPIC AND CULTURE Routine 09/05/2025 2:31 PM EST Unsteady gait Hallucinations CULTURE URINE Routine 09/05/2025 2:31 PM EST Unsteady gait Hallucinations VITAMIN D 25 HYDROXY Routine 09/05/2025 12:44 PM EST Adult general medical examination CBC WITH AUTO DIFFERENTIAL Routine 09/05/2025 12:44 PM EST Unsteady gait Hallucinations CBC AND DIFFERENTIAL Routine 09/05/2025 12:44 PM EST Unsteady gait Hallucinations COMPREHENSIVE METABOLIC PANEL Routine 09/05/2025 12:44 PM EST Unsteady gait Hallucinations LIPID PANEL Routine 10/17/2023 from Last 3 Months or Most Recently Relevant to Health Maintenance Results * (ABNORMAL) Complete blood count (09/22/2025 4:49 AM EST) [facility] WBC 8.0 4.8 - 10.8 K/mcL LAB HEMETOLOGY METHOD 09/22/2025 9:56 AM [facility] RBC 3.80(L) 4.50 - 5.50 M/mcL LAB HEMETOLOGY METHOD 09/22/2025 9:56 AM [facility] Hemoglobin 12.2(L) 13.5 - 17.5 g/dL LAB HEMETOLOGY METHOD 09/22/2025 9:56 AM [facility] Hematocrit 36.1(L) 42.0 - 54.0 % LAB HEMETOLOGY METHOD 09/22/2025 9:56 AM [facility] MCV 95.0 79.0 - 98.0 FL LAB HEMETOLOGY METHOD 09/22/2025 9:56 AM [facility] MCH 32.1(H) 27.0 - 32.0 pcg LAB HEMETOLOGY METHOD 09/22/2025 9:56 AM [facility] MCHC 33.8 32.0 - 37.0 g/dL LAB HEMETOLOGY METHOD 09/22/2025 9:56 AM [facility] RDW 12.7 11.0 - 15.0 % LAB HEMETOLOGY METHOD 09/22/2025 9:56 AM [facility] Platelets 265 130 - 400 K/mcL LAB HEMETOLOGY METHOD 09/22/2025 9:56 AM [facility] MPV 12.2(H) 7.0 - 11.0 FL LAB HEMETOLOGY METHOD 09/22/2025 9:56 AM EST [facility] NRBC 0.0 <1.0 % LAB HEMETOLOGY METHOD 09/22/2025 9:56 AM EST [facility] NRBC Absolute 0.00 <0.10 K/mcL LAB HEMETOLOGY METHOD 09/22/2025 9:56 AM EST [facility] Blood Venous blood specimen / Unknown Venipuncture / Unknown 09/22/2025 4:49 AM EST 09/22/2025 9:28 AM EST Mikayla Angulo MD LAB BLOOD ORDERABLES Fin al Result [facility] [address] [place] [address], * (ABNORMAL) Basic metabolic panel (09/22/2025 4:49 AM EST) Sodium 142 133 - 145 mmol/L 09/22/2025 10:44 AM [facility] Potassium 4.4 3.5 - 5.5 mmol/L 09/22/2025 10:44 AM [facility] Chloride 102 96 - 110 mmol/L 09/22/2025 10:44 AM [facility] CO2 30 21 - 32 mmol/L 09/22/2025 10:44 AM [facility] Anion Gap 10 3 - 11 09/22/2025 10:44 AM [facility] Glucose 95 70 - 100 mg/dL 09/22/2025 10:44 AM [facility] BUN 35(H) 5 - 25 mg/dL 09/22/2025 10:44 AM [facility] Creatinine 1.31(H) 0.70 - 1.30 mg/dL 09/22/2025 10:44 AM [facility] eGFR 56(L) >=60 mL/min/1. 73m2 09/22/2025 10:44 AM [facility] Comment:Calculation based on the Chronic Kidney Disease Epidemiology Collaboration (CKD-EPI) equation refit without adjustment for race. BUN/Creatinine Ratio 26.7 09/22/2025 10:44 AM [facility] Calcium 8.7 8.5 - 10.5 mg/dL 09/22/2025 10:44 AM [facility] Blood Venous blood specimen / Unknown Venipuncture / Unknown 09/22/2025 4:49 AM EST 09/22/2025 9:29 AM EST us Mikayla Angulo MD LAB BLOOD ORDERABLES Fin al Result [facility] [address] [place] [address], [place] [phone] * (ABNORMAL) Urinalysis with reflex microscopic and culture (09/12/2025 2:36 PM EST) Only the most recent of2 resultswithin the time period is included. Specific [place] Urine 1.020 1.003 - 1.030 LAB URINALYSIS - AUTOMATED METHOD 09/12/2025 7:21 PM [facility] pH, Urine 6.0 5.0 - 8.0 pH LAB URINALYSIS - AUTOMATED METHOD 09/12/2025 7:21 PM [facility] Leukocytes, Urine Negative Negative LAB URINALYSIS - AUTOMATED METHOD 09/12/2025 7:21 PM [facility] Nitrite, Urine Negative Negative LAB URINALYSIS - AUTOMATED METHOD 09/12/2025 7:21 PM [facility] Protein, Urine 30(A) <=Trace mg/dL LAB URINALYSIS - AUTOMATED METHOD 09/12/2025 7:21 PM [facility] Glucose, Urine Negative Negative mg/dL LAB URINALYSIS - AUTOMATED METHOD 09/12/2025 7:21 PM [facility] Ketones, Urine Trace(A) Negative mg/dL LAB URINALYSIS - AUTOMATED METHOD 09/12/2025 7:21 PM [facility] Urobilinogen, Urine 1.0 0.2 - 1.0 mg/dL LAB URINALYSIS - AUTOMATED METHOD 09/12/2025 7:21 PM [facility] Bilirubin, Urine Negative Negative LAB URINALYSIS - AUTOMATED METHOD 09/12/2025 7:21 PM [facility] Blood, Urine Negative Negative LAB URINALYSIS - AUTOMATED METHOD 09/12/2025 7:21 PM [facility] RBC, Urine 0 0 - 4 /HPF LAB URINALYSIS - AUTOMATED METHOD 09/12/2025 7:21 PM [facility] WBC, Urine 4 0 - 4 /HPF LAB URINALYSIS - AUTOMATED METHOD 09/12/2025 7:21 PM [facility] Squamous Epithelial, Urine 20 0 - 60 /LPF LAB URINALYSIS - AUTOMATED METHOD 09/12/2025 7:21 PM [facility] Bacteria, Urine Negative Negative /HPF LAB URINALYSIS - AUTOMATED METHOD 09/12/2025 7:21 PM [facility] Hyaline Casts, Urine 10(H) 0 - 3 /LPF LAB URINALYSIS - AUTOMATED METHOD 09/12/2025 7:21 PM [facility] Urine Urine specimen obtained by clean catch procedure / Unknown Non-blood Collection / Unknown 09/12/2025 2:36 PM EST 09/12/2025 2:36 PM EST us Carla Zuniga NP LAB URINE ORDERABLES Final Re sult [facility] [address] [place] [address], [place] [phone] * Culture urine (09/05/2025 2:31 PM EST) [facility] Culture, Urine No growth 09/06/2025 12:52 PM EST [facility] Urine Urine specimen obtained by clean catch procedure / Unknown Non-blood Collection / Unknown 09/05/2025 2:31 PM EST 09/05/2025 6:16 PM EST Carla Zuniga NP LAB MICROBIOLOGY - GENERAL OR DERABLES Final Result [facility] [address] [place] [address], [place] [phone] * (ABNORMAL) CBC auto differential (09/05/2025 12:44 PM EST) [facility] WBC 10.1 4.8 - 10.8 K/mcL LAB HEMETOLOGY METHOD 09/05/2025 5:57 PM [facility] RBC 4.40(L) 4.50 - 5.50 M/mcL LAB HEMETOLOGY METHOD 09/05/2025 5:57 PM [facility] Hemoglobin 14.0 13.5 - 17.5 g/dL LAB HEMETOLOGY METHOD 09/05/2025 5:57 PM [facility] Hematocrit 41.8(L) 42.0 - 54.0 % LAB HEMETOLOGY METHOD 09/05/2025 5:57 PM [facility] MCV 95.7 79.0 - 98.0 FL LAB HEMETOLOGY METHOD 09/05/2025 5:57 PM [facility] MCH 32.0 27.0 - 32.0 pcg LAB HEMETOLOGY METHOD 09/05/2025 5:57 PM [facility] MCHC 33.5 32.0 - 37.0 g/dL LAB HEMETOLOGY METHOD 09/05/2025 5:57 PM [facility] RDW 12.6 11.0 - 15.0 % LAB HEMETOLOGY METHOD 09/05/2025 5:57 PM [facility] Platelets 211 130 - 400 K/mcL LAB HEMETOLOGY METHOD 09/05/2025 5:57 PM [facility] MPV 11.8(H) 7.0 - 11.0 FL LAB HEMETOLOGY METHOD 09/05/2025 5:57 PM [facility] NRBC 0.0 <1.0 % LAB HEMETOLOGY METHOD 09/05/2025 5:57 PM [facility] NRBC Absolute 0.00 <0.10 K/mcL LAB HEMETOLOGY METHOD 09/05/2025 5:57 PM [facility] Neutrophils Relative 75.4 % LAB HEMETOLOGY METHOD 09/05/2025 5:57 PM [facility] Lymphocytes Relative 12.2 % LAB HEMETOLOGY METHOD 09/05/2025 5:57 PM [facility] Monocytes Relative 11.6 % LAB HEMETOLOGY METHOD 09/05/2025 5:57 PM [facility] Eosinophils Relative 0.1 % LAB HEMETOLOGY METHOD 09/05/2025 5:57 PM [facility] Basophils Relative 0.3 % LAB HEMETOLOGY METHOD 09/05/2025 5:57 PM [facility] Immature Granulocytes Relative 0.4 % LAB HEMETOLOGY METHOD 09/05/2025 5:57 PM [facility] Neutrophils Absolute 7.59(H) 1.50 - 7.00 K/mcL LAB HEMETOLOGY METHOD 09/05/2025 5:57 PM [facility] Lymphocytes Absolute 1.23 1.00 - 5.00 K/mcL LAB HEMETOLOGY METHOD 09/05/2025 5:57 PM EST [facility] Monocytes Absolute 1.17(H) 0.20 - 1.00 K/[facility] LAB HEMETOLOGY METHOD 09/05/2025 5:57 PM EST [facility] Eosinophils Absolute 0.01 0.00 - 0.50 K/[facility] LAB HEMETOLOGY METHOD 09/05/2025 5:57 PM EST [facility] Basophils Absolute 0.03 0.00 - 0.20 K/[facility] LAB HEMETOLOGY METHOD 09/05/2025 5:57 PM EST [facility] Immature Granulocytes Absolute 0.04(H) 0.00 - 0.03 K/[facility] LAB HEMETOLOGY METHOD 09/05/2025 5:57 PM [facility] Blood Venous blood specimen / Unknown Venipuncture / Unknown 09/05/2025 12:44 PM EST 09/05/2025 12:44 PM EST Carla Zuniga GROCERY CLERK CHECKING LAB BLOOD ORDERABLES Final Re sult Performing Organization Address City/[facility]/ZIP Co de Phone Number [facility] [address] [place] [address], [place] [phone] * (ABNORMAL) Vitamin D 25 hydroxy (09/05/2025 12:44 PM EST) Vit D, 25-Hydroxy 22.4(L) 30.0 - 80.0 ng/mL 09/07/2025 10:46 PM EST [facility] Blood Venous blood specimen / Unknown Venipuncture / Unknown 09/05/2025 12:44 PM EST 09/05/2025 12:44 PM EST Carla Zuniga GROCERY CLERK CHECKING LAB BLOOD ORDERABLES Final Re sult [facility] [address] [place] [address], [place] [phone] * (ABNORMAL) Comprehensive metabolic panel (09/05/2025 12:44 PM EST) Sodium 134 133 - 145 mmol/L 09/05/2025 6:05 PM [facility] Potassium 4.1 3.5 - 5.5 mmol/L 09/05/2025 6:05 PM [facility] Chloride 97 96 - 110 mmol/L 09/05/2025 6:05 PM [facility] CO2 27 21 - 32 mmol/L 09/05/2025 6:05 PM [facility] Anion Gap 10 3 - 11 09/05/2025 6:05 PM [facility] Glucose 91 70 - 100 mg/dL 09/05/2025 6:05 PM [facility] BUN 31(H) 5 - 25 mg/dL 09/05/2025 6:05 PM [facility] Creatinine 1.27 0.70 - 1.30 mg/dL 09/05/2025 6:05 PM [facility] eGFR 58(L) >=60 mL/min/1. 73m2 09/05/2025 6:05 PM [facility] Comment:Calculation based on the Chronic Kidney Disease Epidemiology Collaboration (CKD-EPI) equation refit without adjustment for race. BUN/Creatinine Ratio 24.4 09/05/2025 6:05 PM [facility] Calcium 8.6 8.5 - 10.5 mg/dL 09/05/2025 6:05 PM [facility] AST (SGOT) 25 10 - 42 unit/L 09/05/2025 6:05 PM [facility] ALT (SGPT) 8(L) 10 - 60 unit/L 09/05/2025 6:05 PM [facility] Alkaline Phosphatase 96 42 - 121 unit/L 09/05/2025 6:05 PM EST [facility] Total Protein 7.1 6.0 - 8.0 g/dL 09/05/2025 6:05 PM EST [facility] Albumin 4.1 3.2 - 5.0 g/dL 09/05/2025 6:05 PM [facility] Total Bilirubin 1.4 0.0 - 1.4 mg/dL 09/05/2025 6:05 PM EST [facility] Blood Venous blood specimen / Unknown Venipuncture / Unknown 09/05/2025 12:44 PM EST 09/05/2025 12:44 PM EST Carla Zuniga NP LAB BLOOD ORDERABLES Final Re sult [facility] [address] [place] [address], * (ABNORMAL) Lipid panel (10/17/2023) LDL/HDL Ratio 3 <=5 Triglycerides 79 <=150 mg/dL Cholesterol 110 <=200 mg/dL HDL 37(A) >=40 mg/dL LDL Cholesterol 57 <=100 mg/dL Blood Venous blood specimen / Unknown Historical Provider LAB BLOOD ORDERABLES Lali l Result from Last 3 Months or Most Recently Relevant to Health Maintenance [place] [address] * Guarantor: [employer] Account Type Relation to Patient Date of Phone Billing Address DEAN MOR[place] ARAC[place] [address] [facility] Advance Directives Documents on File Type Date Recorded Patient Pressurizer Expl anation Advance Directives and Living Will [...] currently active code status orders. Care Teams Dials Supervisor Relationship Specialty Start Date End Date Carla Zuniga NP [address] [address] PCP - General Family Medicine 11/06/24
[2025-09-24 04:18] LABS: MANUAL DIFF FLAG NO
--- OUTSIDE RECORDS SUMMARY | 2025-09-24 04:18 | XMS_ITS ---
Author Organization [facility] [place] [address] Phone Care Team Providers Care Quill Buncher And Sorter Name Role Phone Reyna Zuniga STORE HAND Primary Care Provider [phone] [facility] Status:Enrolled (Active) Start date:06/15/2025 Enrollment date:06/15/2025 Related program episode:Program of All-Inclusive Care for the Elderly (Active) Case Team Name Relationship Phone Anne-Marie JOYA(Responsible Staff) Registered Nurse Continued Care and Services Coordination
--- OUTSIDE RECORDS SUMMARY | 2025-09-24 04:18 | XMS_ITS | Encounter Summary ---
Author Organization [facility] Address [address] [place] [address] Care Team Providers Care Operations Welder Name Role Phone Reyna Zuniga KAIAKO KURA KAUPAPA MAORI Primary Care Provider [phone] Encounter Details Date Type Department Care Team (Late st Contact Info) Description 09/22/2025 Lab Requisition [facility] [address] [place] [id number] Mikayla Angulo MD [address] [address] Parkinsonism, unspecified (CMS/HCC V24, CMS/HCC V28) Social History Tobacco Use Types Packs/Day Years [...] [facility] [address] [place] [phone] Asmita Matias 09/26/2025 1:30 PM EST PACE Assessment [facility] [address] [place] [address] Fede Rock, MARIA T 09/26/2025 5:00 PM EST PACE Home Care / PACE Home Visit [facility] [address] [place] [address] Daksha Yates 09/27/2025 8:00 AM EST PACE Home Care / PACE Home Visit [facility] [address] [place] [address] Tiana Sibley 09/27/2025 12:30 PM EST PACE Home Care / PACE Home Visit [facility] [address] [place] [address] Lata Ford 09/27/2025 5:30 PM EST PACE Home Care / PACE Home Visit [facility] [address] [place] [phone] Daksha Yates 09/28/2025 8:45 AM EST Clinical Support [facility] [address] [place] [address] Federica Quintana LPN 09/28/2025 9:00 AM EST PACE Home Care / PACE Home Visit [facility] [address] [place] [phone] Melissa Raza 09/28/2025 12:30 PM EST PACE Home Care / PACE Home Visit [facility] [address] [place] [phone] Melissa Raza 09/28/2025 5:30 PM EST PACE Home Care / PACE Home Visit [facility] [address] [place] [phone] Daksha Yates 09/30/2025 8:30 AM EST PACE Home Care / PACE Home Visit [facility] [address] [place] [address] Tiana Sibley 09/30/2025 9:00 AM EST Clinical Support [facility] [address] [place] [address] Federica Quintana LPN 09/30/2025 12:30 PM EST PACE Home Care / [facility] [address] [place] [address] Lata Ford 09/30/2025 5:30 PM EST PACE Home Care / [facility] [place] [facility] [address] [place] [phone] Tiana Sibley 10/01/2025 8:30 AM EST PACE Home Care / [facility] Home Visit [facility] [place] [facility] [address] [place] [address] Tiana Sibley 10/01/2025 12:30 PM EST PACE Home Care / [facility] Visit [facility] [place] [facility] [address] [place] [phone] Tiana Sibley 10/01/2025 5:30 PM EST PACE Home Care / [facility] Visit [facility] [place] [facility] [address] [place] [phone] Tiana Sibley 10/02/2025 8:00 AM EST PACE Home Care / [facility] [place] [facility] [address] [place] [address] Daksha Yates 10/02/2025 12:30 PM EST PACE Home Care / [facility] [place] [facility] [address] [place] [phone] Daksha Yates 10/02/2025 5:30 PM EST PACE Home Care / [facility] [place] [facility] [address] [place] [address] Daksha Yates 10/03/2025 8:00 AM EST PACE Home Care / [facility] Visit [facility] [address] [place] [address] Melissa Raza 10/03/2025 8:45 AM EST Clinical Support [facility] [address] [place] [address] Federica Quintana LPN 10/03/2025 12:30 PM EST PACE Home Care / [facility] [place] [facility] [address] [place] [address] Melissa Raza 10/03/2025 5:30 PM EST PACE Home Care / [facility] Visit [facility] [address] [place] [phone] Daksha Yates 10/04/2025 8:00 AM EST PACE Home Care / [facility] Visit [facility] [address] [place] [address] Tiana Sibley 10/04/2025 12:30 PM EST PACE Home Care / [facility] Visit [facility] [place] [facility] [address] [place] [address] Lata Ford 10/04/2025 5:30 PM EST PACE Home Care / [facility] Visit [facility] [place] [facility] [address] [place] [address] Daksha Yates 10/05/2025 8:00 AM EST PACE Home Care / [facility] [place] [facility] [address] [place] [address] Melissa Raza 10/05/2025 12:30 PM EST PACE Home Care / P[facility] Home Visit [facility] [place] [facility] [address] [place] [address] Melissa Raza 10/05/2025 5:30 PM EST PACE Home Care / [facility] [address] [place] [phone] Trudy, Daksha 10/06/2025 8:00 AM EST PACE Home Care / [facility] [address] [place] [phone] Tiana Sibley 10/06/2025 12:30 PM EST PACE Home Care / [facility] [place] [facility] [address] [place] [phone] Daksha Yates 10/06/2025 5:30 PM EST PACE Home Care / [facility] [place] [facility] [address] [place] [phone] Daksha Yates 10/07/2025 8:30 AM EST PACE Home Care / [facility] [place] [facility] [address] [place] [phone] Tiana Sibley 10/07/2025 12:30 PM EST PACE Home Care / [facility] [place] [facility] [address] [place] [phone] Daksha Yates 10/07/2025 5:30 PM EST PACE Home Care / [facility] [address] [place] [phone] Tiana Sibley 10/08/2025 8:30 AM EST PACE Home Care / [facility] [place] [facility] [address] [place] [phone] Tiana Sibley 10/08/2025 12:30 PM EST PACE Home Care / [facility] [place] [facility] [address] [place] [address] Tiana Sibley 10/08/2025 5:00 PM EST PACE Home Care / [facility] [place] [facility] [address] [place] [address] Tiana Sibley 10/09/2025 8:30 AM EST PACE Home Care / [facility] [place] [facility] [address] [place] [phone] Brigida Hendricks 10/09/2025 12:30 PM EST PACE Home Care / [facility] [address] [place] [phone] Brigida Hendricks 10/09/2025 5:30 PM EST PACE Home Care / [facility] [place] [facility] [address] [place] [phone] Brigida Hendricks 10/10/2025 8:00 AM EST PACE Home Care / [facility] [place] [facility] [address] [place] [phone] Melissa Raza 10/10/2025 12:30 PM EST PACE Home Care / [facility] [place] [facility] [address] [place] [phone] Melissa Raza 10/10/2025 5:30 PM EST PACE Home Care / [facility] [address] [place] [phone] Daksha Yates 10/11/2025 8:00 AM EST PACE Home Care / [facility] [place] [facility] [address] [place] [phone] Tiana Sibley 10/11/2025 12:30 PM EST PACE Home Care / [facility] [place] [facility] [address] [place] [address] Lata Ford 10/11/2025 5:30 PM EST PACE Home Care / [facility] Visit [facility] [place] [facility] [address] [place] [address] Trudy, Daksha 10/12/2025 8:00 AM EST PACE Home Care / [facility] [place] [facility] [address] [place] [address] Melissa Raza 10/12/2025 12:30 PM EST PACE Home Care / [facility] Visit [facility] [place] [facility] [address] [place] [phone] Melissa Raza 10/12/2025 5:30 PM EST PACE Home Care / [facility] [place] [facility] [address] [place] [phone] DansDaksha harris 10/13/2025 8:00 AM EST PACE Home Care / [facility] Visit [facility] [place] [facility] [address] [place] [phone] Tiana Sibley 10/13/2025 12:30 PM EST PACE Home Care / [facility] [place] [facility] [address] [place] [phone] Dansereadaniel, Daksha 10/13/2025 5:30 PM EST PACE Home Care / [facility] [place] [facility] [address] [place] [phone] Dansereadaniel, Daksha 10/14/2025 8:30 AM EST PACE Home Care / [facility] [place] [facility] [address] [place] [phone] Tiana Sibley 10/14/2025 12:30 PM EST PACE Home Care / [facility] [place] [facility] [address] [place] [address] Trudy, Daksha 10/14/2025 5:30 PM EST PACE Home Care / [facility] [place] [facility] [address] [place] [address] Tiana Sibley 10/15/2025 8:30 AM EST PACE Home Care / [facility] [place] [facility] [address] [place] [address] Tiana Sibley 10/15/2025 12:30 PM EST PACE Home Care / [facility] [address] [place] [address] Tiana Sibley 10/15/2025 5:30 PM EST PACE Home Care / [facility] [address] [place] [phone] Tiana Sibley 10/16/2025 8:00 AM EST PACE Home Care / [facility] [address] [place] [phone] Dansereau, Shechristian 10/16/2025 12:30 PM EST PACE Home Care / [facility] [address] [place] [phone] [facility], [facility] 10/16/2025 5:30 PM EST PACE Home Care / [facility] [place] [facility] [address] [place] [phone] Dansereau, Shechristian 10/17/2025 8:00 AM EST PACE Home Care / [facility] [place] [facility] [address] [place] [phone] Melissa Raza 10/17/2025 12:30 PM EST PACE Home Care / [facility] [address] [place] [address] Melissa Raza 10/17/2025 5:30 PM EST PACE Home Care / [facility] [place] [facility] [address] [place] [address] Daksha Yates 10/18/2025 8:00 AM EST PACE Home Care / [facility] [address] [place] [phone] Tiana Sibley 10/18/2025 12:30 PM EST PACE Home Care / [facility] [place] [facility] [address] [place] [phone] Lata Ford 10/18/2025 5:30 PM EST PACE Home Care / [facility] [place] [facility] [address] [place] [phone] Daksha Yates 10/19/2025 8:00 AM EST PACE Home Care / [facility] [place] [facility] [address] [place] [phone] Melissa Raza 10/19/2025 12:30 PM EST PACE Home Care / [facility] [place] [facility] [address] [place] [phone] Melissa Raza 10/19/2025 5:30 PM EST PACE Home Care / [facility] [place] [facility] [address] [place] [phone] Daksha Yates 10/20/2025 8:00 AM EST PACE Home Care / [facility] [address] [place] [phone] Tiana Sibley 10/20/2025 12:30 PM EST PACE Home Care / [facility] [place] [facility] [address] [place] [phone] Daksha Yates 10/20/2025 5:30 PM EST PACE Home Care / [facility] [address] [place] [phone] Daksha Yates 10/21/2025 8:30 AM EST PACE Home Care / [facility] [place] [facility] [address] [place] [phone] Tiana Sibley 10/21/2025 12:30 PM EST PACE Home Care / [facility] [place] [facility] [address] [place] [phone] Daksha Yates 10/21/2025 5:30 PM EST PACE Home Care / [facility] [place] [facility] [address] [place] [phone] Tiana Sibley 10/22/2025 8:30 AM EST PACE Home Care / [facility] [place] [facility] [address] [place] [phone] Tiana Sibley 10/22/2025 12:30 PM EST PACE Home Care / [facility] [address] [place] [phone] Tiana Sibley 10/22/2025 5:00 PM EST PACE Home Care / [facility] [place] [facility] [address] [place] [phone] Tiana Sibley 10/23/2025 8:30 AM EST PACE Home Care / [facility] [address] [place] [phone] Brigida Hendricks 10/23/2025 12:30 PM EST PACE Home Care / [facility] [address] [place] [phone] Brigida Hendricks 10/23/2025 5:30 PM EST PACE Home Care / [facility] [address] [place] [phone] Brigida Hendricks 10/24/2025 8:00 AM EST PACE Home Care / [facility] [address] [place] [phone] Melissa Raza 10/24/2025 12:30 PM EST PACE Home Care / [facility] [address] [place] [phone] Melissa Raza 10/24/2025 5:30 PM EST PACE Home Care / [facility] [address] [place] [phone] Daksha Yates 10/25/2025 8:00 AM EST PACE Home Care / [facility] [address] [place] [phone] Tiana Sibley 10/25/2025 12:30 PM EST PACE Home Care / [facility] [address] [place] [phone] Lata Ford 10/25/2025 5:30 PM EST PACE Home Care / [facility] [address] [place] [phone] Daksha Yates 10/26/2025 8:00 AM EST PACE Home Care / [facility] [address] [place] [phone] Melissa Raza 10/26/2025 12:30 PM EST PACE Home Care / [facility] [place] [facility] [address] [place] [address] Melissa Raza 10/26/2025 5:30 PM EST PACE Home Care / [facility] [address] [place] [address] Daksha Yates 10/27/2025 8:00 AM EST PACE Home Care / [facility] [address] [place] [address] Tiana Sibley 10/27/2025 12:30 PM EST PACE Home Care / [facility] [address] [place] [address] Daksha Yates 10/27/2025 5:30 PM EST PACE Home Care / [facility] [address] [place] [address] Daksha Yates 10/28/2025 8:30 AM EST PACE Home Care / [facility] [address] [place] [address] Tiana Sibley 10/28/2025 12:30 PM EST PACE Home Care / [facility] [address] [place] [address] Daksha Yates 10/28/2025 5:30 PM EST PACE Home Care / [facility] [place] [facility] [address] [place] [address] Tiana Sibley 10/29/2025 8:30 AM EST PACE Home Care / [facility] [place] [facility] [address] [place] [address] Tiana Sibley 10/29/2025 12:30 PM EST PACE Home Care / [facility] [place] [facility] [address] [place] [address] Tiana Sibley 10/29/2025 5:30 PM EST PACE Home Care / [facility] [place] [facility] [address] [place] [address] Tiana Sibley 10/30/2025 8:00 AM EST PACE Home Care / [facility] [place] [facility] [address] [place] [phone] Daksha Yates 10/30/2025 12:30 PM EST PACE Home Care / [facility] [address] [place] [phone] Daksha Yates 10/30/2025 5:30 PM EST PACE Home Care / [facility] [address] [place] [phone] Daksha Yates 10/31/2025 8:00 AM EST PACE Home Care / [facility] [address] [place] [phone] Melissa Raza 10/31/2025 12:30 PM EST PACE Home Care / [facility] [address] [place] [phone] Melissa Raza 10/31/2025 5:30 PM EST PACE Home Care / [facility] [address] [place] [phone] Daksha Yates 11/01/2025 8:00 AM EST PACE Home Care / [facility] [address] [place] [address] Tiana Sibley 11/01/2025 12:30 PM EST PACE Home Care / [facility] [address] [place] [address] Lata Ford 11/01/2025 5:30 PM EST PACE Home Care / [facility] Visit [facility] [address] [place] [phone] Daksha Yates 11/02/2025 8:00 AM EST PACE Home Care / [facility] [address] [place] [phone] Melissa Raza 11/02/2025 12:30 PM EST PACE Home Care / [facility] [address] [place] [phone] Melissa Raza 11/02/2025 5:30 PM EST PACE Home Care / [facility] [address] [place] [phone] Daksha Yates 11/03/2025 8:00 AM EST PACE Home Care / [facility] [address] [place] [phone] Tiana Sibley 11/03/2025 12:30 PM EST PACE Home Care / [facility] [address] [place] [phone] Daksha Yates 11/03/2025 5:30 PM EST PACE Home Care / [facility] [address] [place] [phone] Daksha Yates 11/04/2025 8:30 AM EST PACE Home Care / [facility] [place] [facility] [address] [place] [phone] Tiana Sibley 11/04/2025 12:30 PM EST PACE Home Care / [facility] [address] [place] [phone] Daksha Yates 11/04/2025 5:30 PM EST PACE Home Care / [facility] [address] [place] [phone] Tiana Sibley 11/05/2025 8:30 AM EST PACE Home Care / [facility] [address] [place] [phone] Tiana Sibley 11/05/2025 12:30 PM EST PACE Home Care / [facility] [address] [place] [phone] Tiana Sibley 11/05/2025 5:00 PM EST PACE Home Care / [facility] [place] [facility] [address] [place] [phone] Tiana Sibley 11/06/2025 8:30 AM EST PACE Home Care / [facility] [address] [place] [phone] Brigida Hendricks 11/06/2025 12:30 PM EST PACE Home Care / [facility] [address] [place] [phone] Brigida Hendricks 11/06/2025 5:30 PM EST PACE Home Care / [facility] [address] [place] [phone] Brigida Hendricks 11/07/2025 8:00 AM EST PACE Home Care / [facility] [address] [place] [phone] Melissa Raza 11/07/2025 12:30 PM EST PACE Home Care / [facility] [address] [place] [phone] Melissa Raza 11/07/2025 5:30 PM EST PACE Home Care / [facility] [address] [place] [phone] Daksha Yates 11/08/2025 8:00 AM EST PACE Home Care / [facility] [address] [place] [phone] Tiana Sibley 11/08/2025 12:30 PM EST PACE Home Care / [facility] [address] [place] [phone] Lata Ford 11/08/2025 5:30 PM EST PACE Home Care / [facility] [address] [place] [phone] Daksha Yates 11/09/2025 8:00 AM EST PACE Home Care / [facility] [address] [place] [phone] Melissa Raza 11/09/2025 12:30 PM EST PACE Home Care / [facility] [address] [place] [phone] Melissa Raza 11/09/2025 5:30 PM EST PACE Home Care / [facility] [address] [place] [phone] Daksha Yates 11/10/2025 8:00 AM EST PACE Home Care / [facility] [place] [facility] [address] [place] [address] Tiana Sibley 11/10/2025 12:30 PM EST PACE Home Care / [facility] [address] [place] [phone] Daksha Yates 11/10/2025 5:30 PM EST PACE Home Care / [facility] [address] [place] [phone] Daksha Yates 11/11/2025 8:30 AM EST PACE Home Care / [facility] [place] [facility] [address] [place] [phone] Tiana Sibley 11/11/2025 12:30 PM EST PACE Home Care / [facility] [place] [facility] [address] [place] [phone] Daksha Yates 11/11/2025 5:30 PM EST PACE Home Care / [facility] [place] [facility] [address] [place] [phone] Tiana Sibley 11/12/2025 8:30 AM EST PACE Home Care / [facility] [place] [facility] [address] [place] [phone] Tiana Sibley 11/12/2025 12:30 PM EST PACE Home Care / [facility] [place] [facility] [address] [place] [phone] Tiana Sibley 11/12/2025 5:30 PM EST P[facility] Home [facility] / [facility] [place] [facility] [address] [place] [phone] Tiana Sibley 11/13/2025 8:00 AM EST PACE [facility] [facility] [place] [facility] [address] [place] [phone] Daksha Yates 11/13/2025 12:30 PM EST [facility] [place] [facility] [place] [facility] [address] [place] [phone] Daksha Yates 11/13/2025 5:30 PM EST [facility] [facility] [place] [facility] [place] [facility] [address] [place] [phone] Daksha Yates 11/14/2025 8:00 AM EST [facility] [place] [facility] [address] [place] [phone] Melissa Raza 11/14/2025 12:30 PM EST [facility] [place] [facility] [address] [place] [phone] Melissa Raza 11/14/2025 5:30 PM EST [facility] [place] [facility] [address] [place] [phone] Daksha Yates 11/15/2025 8:00 AM EST [facility] [place] [facility] [address] [place] [phone] Tiana Sibley 11/15/2025 12:30 PM EST [facility] [facility] [place] [facility] [address] [place] [phone] Lata Ford 11/15/2025 5:30 PM EST [facility] [place] [facility] [address] [place] [phone] [facility]/16/[facility]25 8:00 AM EST [facility] [place] [facility] [address] [place] [phone] Melissa Raza 11/16/2025 12:30 PM EST [facility] [place] [facility] [address] [place] [phone] Melissa Raza 11/16/2025 5:30 PM EST [facility] / [facility] [facility] [place] [facility] [address] [place] [phone] Trudy [facility] 11/17/2025 8:00 AM EST [facility] [facility] [place] [facility] [address] [place] [phone] Tiana Sibley 11/17/2025 12:30 PM EST [facility] [place] [facility] [address] [place] [phone] Trudy [facility] 11/17/2025 5:30 PM EST [facility] [facility] [place] [facility] [address] [place] [phone] Trudy [facility] 11/18/2025 8:30 AM EST [facility] [facility] [place] [facility] [place] [facility] [address] [place] [phone] Tiana Sibley 11/18/2025 12:30 PM EST [facility] [place] [facility] [address] [place] [phone] [facility] 11/18/2025 5:30 PM EST [facility] [place] [facility] [address] [place] [phone] Tiana Sibley 11/19/2025 8:30 AM EST [facility] / [facility] [place] [facility] [address] [place] [phone] Tiana Sibley 11/19/2025 12:30 PM EST [facility] / [facility] [place] [facility] [address] [place] [phone] Tiana Sibley 11/19/2025 5:00 PM EST [facility] [place] [facility] [address] [place] [phone] Tiana Sibley 11/20/2025 8:30 AM EST [facility] [place] [facility] [address] [place] [phone] Brigida Hendricks 11/20/2025 12:30 PM EST [facility] [place] [facility] [address] [place] [phone] Brigida Hendricks 11/20/2025 5:30 PM EST [facility] / [facility] [place] [facility] [address] [place] [phone] Brigida Hendricks 11/21/2025 8:00 AM EST [facility] [place] [facility] [address] [place] [phone] Melissa Raza 11/21/2025 12:30 PM EST [facility] [address] [place] [phone] Melissa Raza 11/21/2025 5:30 PM EST [facility] / [facility] [address] [place] [phone] Daksha Yates 11/22/2025 8:00 AM EST [facility] [address] [place] [phone] Tiana Sibley 11/22/2025 12:30 PM EST [facility] [address] [place] [phone] Lata Ford 11/22/2025 5:30 PM EST [facility] [address] [place] [phone] Daksha Yates documented as of this encounter Procedures Procedure Name Priority Date/Time Associated Diagnosis Comments COMPLETE BLOOD COUNT Routine 09/22/2025 4:49 AM EST Parkinsonism, unspecified (CMS/HCC V24, CMS/HCC V28) BASIC METABOLIC PANEL Routine 09/22/2025 4:49 AM EST Parkinsonism, unspecified (CMS/HCC V24, CMS/HCC V28) documented in this encounter Results * (ABNORMAL) Basic metabolic panel (09/22/2025 4:49 AM EST) Sodium 142 133 - 145 mmol/L 09/22/2025 10:44 AM [facility] Potassium 4.4 3.5 - 5.5 mmol/L 09/22/2025 10:44 AM [facility] Chloride 102 96 - 110 mmol/L 09/22/2025 10:44 AM [facility] CO2 30 21 - 32 mmol/L 09/22/2025 10:44 AM [facility] Anion Gap 10 3 - 11 09/22/2025 10:44 AM [facility] Glucose 95 70 - 100 mg/dL 09/22/2025 10:44 AM [facility] BUN 35(H) 5 - 25 mg/dL 09/22/2025 10:44 AM [facility] Creatinine 1.31(H) 0.70 - 1.30 mg/dL 09/22/2025 10:44 AM [facility] eGFR 56(L) >=60 mL/min/1. 73m2 09/22/2025 10:44 AM [facility] Comment:Calculation based on the Chronic Kidney Disease Epidemiology Collaboration (CKD-EPI) equation refit without adjustment for race. BUN/Creatinine Ratio 26.7 09/22/2025 10:44 AM [facility] Calcium 8.7 8.5 - 10.5 mg/dL 09/22/2025 10:44 AM [facility] Blood Venous blood specimen / Unknown Venipuncture / Unknown 09/22/2025 4:49 AM EST 09/22/2025 9:29 AM EST us Mikayla Angulo MD LAB BLOOD ORDERABLES Fin al Result [facility] [address] [place] [address], * (ABNORMAL) Complete blood count (09/22/2025 4:49 AM EST) WBC 8.0 4.8 - 10.8 K/mcL LAB HEMETOLOGY METHOD 09/22/2025 9:56 AM [facility] RBC 3.80(L) 4.50 - 5.50 M/mcL LAB HEMETOLOGY METHOD 09/22/2025 9:56 AM [facility] Hemoglobin 12.2(L) 13.5 - 17.5 g/dL LAB HEMETOLOGY METHOD 09/22/2025 9:56 AM [facility] Hematocrit 36.1(L) 42.0 - 54.0 % LAB HEMETOLOGY METHOD 09/22/2025 9:56 AM EST [facility] MCV 95.0 79.0 - 98.0 FL LAB HEMETOLOGY METHOD 09/22/2025 9:56 AM [facility] MCH 32.1(H) 27.0 - 32.0 pcg LAB HEMETOLOGY METHOD 09/22/2025 9:56 AM [facility] MCHC 33.8 32.0 - 37.0 g/dL LAB HEMETOLOGY METHOD 09/22/2025 9:56 AM [facility] RDW 12.7 11.0 - 15.0 % LAB HEMETOLOGY METHOD 09/22/2025 9:56 AM [facility] Platelets 265 130 - 400 K/mcL LAB HEMETOLOGY METHOD 09/22/2025 9:56 AM [facility] MPV 12.2(H) 7.0 - 11.0 FL LAB HEMETOLOGY METHOD 09/22/2025 9:56 AM [facility] NRBC 0.0 <1.0 % LAB HEMETOLOGY METHOD 09/22/2025 9:56 AM [facility] NRBC Absolute 0.00 <0.10 K/mcL LAB HEMETOLOGY METHOD 09/22/2025 9:56 AM [facility] Blood Venous blood specimen / Unknown Venipuncture / Unknown 09/22/2025 4:49 AM EST 09/22/2025 9:28 AM EST us Mikayla Angulo MD LAB BLOOD ORDERABLES Fin al Result [facility] [address] [place] [address], documented in this encounter Visit Diagnoses Diagnosis Parkinsonism, unspecified (CMS/HCC V24, CMS/[facility] V28) documented in this encounter Additional Health Concerns Assessment Noted Time PHQ-9 Depression Total Score: 3 03/25/20 25 11:12 AM EDT documented as of this encounter Care Teams Operations Welder Relationship Specialty Start Date End Date Reyna Zuniga NP [address] [address] PCP - General Family Medicine 11/06/24 documented as of this encounter
--- OUTSIDE RECORDS SUMMARY | 2025-09-24 04:18 | XMS_ITS | Encounter Summary ---
Author Organization [facility] Address [address] [place] [address] Care Team Providers Care Structural Engineer Name Role Phone Reyna Zuniga NP Primary Care Provider [phone] Reason for Referral * Consultation (Routine) - Closed Specialty Diagnoses / Procedures Referred By Contac t Referred To Contact Emergency Medicine Diagnoses Recurrent falls Lewy body dementia, unspecified dementia severity, unspecified whether behavioral, psychotic, or mood disturbance or anxiety (CMS/[facility] V24, CMS/[facility] V28) Parkinson's disease, unspecified whether dyskinesia present, unspecified whether manifestations fluctuate (CMS/HCC V24, CMS/[facility] V28) Ilsa Frias MD [address] [place] [address] Phone: tel: fax:[phone] Phone: tel: Referral ID Status Reason Start Date Expiration Date V isits Requested Visits Authorized [id number] Closed Consult and Treat 09/20/2025 09/22/2026 1 1 Encounter Details Date Type Department Care Team (Latest Contact Info) Description 09/20/2025 PACE Admissions [facility] [address] [place] [address] Liberty Burns RN Recurrent falls (Primary Dx); Lewy body dementia, unspecified dementia severity, unspecified whether behavioral, psychotic, or mood disturbance or anxiety (CMS/HCC V24, CMS/[facility] V28); Parkinson's disease, unspecified whether dyskinesia present, unspecified whether manifestations fluctuate (CMS/HCC V24, CMS/[facility] V28) Social History Tobacco Use Types Packs/Day Years Used Date Smoking Tobacco: Former Cigarettes Smokeless Tobacco: Never Comments:Ex-smoker Sex and Gender Information Value Date Recorded Sex Assigned at Not on file Legal Sex Male 9:32 AM EST Gender Identity Not on file Sexual Orientation Not on file documented as of this encounter Progress Notes * Liberty Burns RN - 09/20/2025 5:08 PM EST 09/21/2025 Par is accepted at [facility]. Jagdish Carbajal updated and will drive par there to assist with a smooth transfer of care. Authorization is for one week of respite. Meeting with family planned to develop a plan for ongoing care in the safest setting. 09/21/2025 Spoke with cardiology manager. Angel is medically cleared for discharge to home. Case managerreports that angel passed his PT evaluation. Par to be referred to [facility] for respite care due to safety concerns at home. Continuing to follow. 09/20/2025 Par transferred to [facility] this afternoon after a fall during which he hit his head. Per [facility] leadership, par will need to discharge to a SNF for short term rehab. Messagesent to ED case checker to notifiy. Jagdish Lozano updated. Per documentation, angel has a 1 cm lacerationto his scalp. Head CT and neck imaging is negative. Workup continues. call center dispatcher staff updated. documented in this encounter Plan of Treatment Upcoming Encounters Date Type Department Care Team (Late st Contact Info) Description 09/26/2025 1:30 PM EST PACE Home Care / [facility] [address] [place] [phone] Asmita Matias 09/26/2025 1:30 PM EST [facility] Assessment [facility] [address] [place] [address] Fede Rock, MARIA T 09/26/2025 5:00 PM EST PACE Home Care / [facility] Visit [facility] [address] [place] [address] Daksha Yates 09/27/2025 8:00 AM EST PACE Home Care / [facility] [address] [place] [address] Tiana Sibley 09/27/2025 12:30 PM EST PACE Home Care / [facility] [address] [place] [phone] Lata Ford 09/27/2025 5:30 PM EST PACE Home Care / [facility] [address] [place] [address] Daksha Yates 09/28/2025 8:45 AM EST Clinical Support [facility] [address] [place] [phone] Federica Quintana LPN 09/28/2025 9:00 AM EST PACE Home Care / [facility] [address] [place] [phone] Melissa Raza 09/28/2025 12:30 PM EST PACE Home Care / [facility] [address] [place] [phone] Melissa Raza 09/28/2025 5:30 PM EST PACE Home Care / [facility] [address] [place] [phone] Daksha Yates 09/30/2025 8:30 AM EST PACE Home Care / [facility] [address] [place] [address] Tiana Sibley 09/30/2025 9:00 AM EST Clinical Support [facility] [address] [place] [address] Federica Quintana LPN 09/30/2025 12:30 PM EST PACE Home Care / PACE Home Visit [facility] [address] [place] [address] Lata Ford 09/30/2025 5:30 PM EST PACE Home Care / PACE Home Visit [facility] [address] [place] [address] Tiana Sibley 10/01/2025 8:30 AM EST PACE Home Care / P[facility] Home Visit [facility] [address] [place] [address] Tiana Sibley 10/01/2025 12:30 PM EST PACE Home Care / P[facility] Home Visit [facility] [address] [place] [phone] Tiana Sibley 10/01/2025 5:30 PM EST PACE Home Care / P[facility] Home Visit [facility] [address] [place] [phone] Tiana Sibley 10/02/2025 8:00 AM EST PACE Home Care / P[facility] Visit [facility] [address] [place] [address] Daksha Yates 10/02/2025 12:30 PM EST PACE Home Care / PACE Home Visit [facility] [address] [place] [address] Daksha Yates 10/02/2025 5:30 PM EST PACE Home Care / P[facility] Home Visit [facility] [address] [place] [address] Daksha Yates 10/03/2025 8:00 AM EST PACE Home Care / P[facility] Home Visit [facility] [address] [place] [address] Melissa Raza 10/03/2025 8:45 AM EST Clinical Support [facility] [address] [place] [address] Federica Quintana LPN 10/03/2025 12:30 PM EST PACE Home Care / P[facility] Home Visit [facility] [address] [place] [address] Melissa Raza 10/03/2025 5:30 PM EST PACE Home Care / P[facility] Home Visit [facility] [address] [place] [phone] Daksha Yates 10/04/2025 8:00 AM EST PACE Home Care / P[facility] Home Visit [facility] [address] [place] [phone] Tiana Sibley 10/04/2025 12:30 PM EST PACE Home Care / P[facility] Home Visit [facility] [address] [place] [phone] Lata Ford 10/04/2025 5:30 PM EST PACE Home Care / P[facility] Home Visit [facility] [address] [place] [phone] Daksha Yates 10/05/2025 8:00 AM EST PACE Home Care / [facility] Home Visit [facility] [address] [place] [phone] Melissa Raza 10/05/2025 12:30 PM EST PACE Home Care / [facility] [address] [place] [address] Melissa Raza 10/05/2025 5:30 PM EST PACE Home Care / [facility] [address] [place] [address] Daksha Yates 10/06/2025 8:00 AM EST PACE Home Care / [facility] [place] [facility] [address] [place] [phone] Tiana Sibley 10/06/2025 12:30 PM EST PACE Home Care / [facility] Visit [facility] [place] [facility] [address] [place] [phone] Daksha Yates 10/06/2025 5:30 PM EST PACE Home Care / [facility] [place] [facility] [address] [place] [phone] Daksha Yates 10/07/2025 8:30 AM EST PACE Home Care / [facility] [place] [facility] [address] [place] [phone] Tiana Sibley 10/07/2025 12:30 PM EST PACE Home Care / [facility] [place] [facility] [address] [place] [phone] Daksha Yates 10/07/2025 5:30 PM EST PACE Home Care / [facility] [address] [place] [phone] Tiana Sibley 10/08/2025 8:30 AM EST PACE Home Care / [facility] [address] [place] [phone] Tiana Sibley 10/08/2025 12:30 PM EST PACE Home Care / [facility] [address] [place] [address] Tiana Sibley 10/08/2025 5:00 PM EST PACE Home Care / [facility] [address] [place] [address] Tiana Sibley 10/09/2025 8:30 AM EST PACE Home Care / [facility] [address] [place] [address] Brigida Hendricks 10/09/2025 12:30 PM EST PACE Home Care / [facility] [place] [facility] [address] [place] [phone] Brigida Hendricks 10/09/2025 5:30 PM EST PACE Home Care / [facility] [address] [place] [phone] Brigida Hendricks 10/10/2025 8:00 AM EST PACE Home Care / [facility] [address] [place] [phone] Melissa Raza 10/10/2025 12:30 PM EST PACE Home Care / [facility] [address] [place] [phone] Melissa Raza 10/10/2025 5:30 PM EST PACE Home Care / [facility] [address] [place] [phone] Daksha Yates 10/11/2025 8:00 AM EST PACE Home Care / [facility] [address] [place] [phone] Tiana Sibley 10/11/2025 12:30 PM EST PACE Home Care / [facility] [address] [place] [address] Lata Ford 10/11/2025 5:30 PM EST PACE Home Care / [facility] [address] [place] [phone] Daksha Yates 10/12/2025 8:00 AM EST PACE Home Care / [facility] [address] [place] [phone] Melissa Raza 10/12/2025 12:30 PM EST PACE Home Care / [facility] [address] [place] [phone] Melissa Raza 10/12/2025 5:30 PM EST PACE Home Care / [facility] [address] [place] [phone] Daksha Yates 10/13/2025 8:00 AM EST PACE Home Care / [facility] [address] [place] [phone] Tiana Sibley 10/13/2025 12:30 PM EST PACE Home Care / [facility] [address] [place] [phone] Dansereadaniel, Shechristian 10/13/2025 5:30 PM EST PACE Home Care / [facility] [address] [place] [phone] Dansereadaniel, Shechristian 10/14/2025 8:30 AM EST PACE Home Care / [facility] [address] [place] [phone] Tiana Sibley 10/14/2025 12:30 PM EST PACE Home Care / [facility] [address] [place] [address] DansDaksha harris 10/14/2025 5:30 PM EST PACE Home Care / [facility] [address] [place] [address] Tiana Sibley 10/15/2025 8:30 AM EST PACE Home Care / [facility] [address] [place] [phone] Tiana Sibley 10/15/2025 12:30 PM EST PACE Home Care / [facility] [address] [place] [phone] Tiana Sibley 10/15/2025 5:30 PM EST PACE Home Care / [facility] [address] [place] [phone] Tiana Sibley 10/16/2025 8:00 AM EST PACE Home Care / [facility] [address] [place] [phone] [facility]reau, [facility] 10/16/2025 12:30 PM EST PACE Home Care / [facility] [address] [place] [phone] Dansereau, [facility] 10/16/2025 5:30 PM EST PACE Home Care / [facility] [address] [place] [phone] Dansereau, Shechristian 10/17/2025 8:00 AM EST PACE Home Care / [facility] [address] [place] [phone] Melissa Raza 10/17/2025 12:30 PM EST PACE Home Care / [facility] [address] [place] [address] Melissa Raza 10/17/2025 5:30 PM EST PACE Home Care / [facility] [place] [facility] [address] [place] [phone] Daksha Yates 10/18/2025 8:00 AM EST PACE Home Care / [facility] [address] [place] [phone] Tiana Sibley 10/18/2025 12:30 PM EST PACE Home Care / [facility] [address] [place] [phone] Lata Ford 10/18/2025 5:30 PM EST PACE Home Care / [facility] [address] [place] [phone] Daksha Yates 10/19/2025 8:00 AM EST PACE Home Care / [facility] [address] [place] [phone] Melissa Raza 10/19/2025 12:30 PM EST PACE Home Care / [facility] [address] [place] [phone] Melissa Raza 10/19/2025 5:30 PM EST PACE Home Care / [facility] [address] [place] [phone] Daksha Yates 10/20/2025 8:00 AM EST PACE Home Care / [facility] [address] [place] [phone] Tiana Sibley 10/20/2025 12:30 PM EST PACE Home Care / [facility] [address] [place] [address] Daksha Yates 10/20/2025 5:30 PM EST PACE Home Care / [facility] [address] [place] [address] Daksha Yates 10/21/2025 8:30 AM EST PACE Home Care / [facility] [address] [place] [address] Tiana Sibley 10/21/2025 12:30 PM EST PACE Home Care / [facility] [address] [place] [address] Daksha Yates 10/21/2025 5:30 PM EST PACE Home Care / [facility] [address] [place] [address] Tiana Sibley 10/22/2025 8:30 AM EST PACE Home Care / [facility] [address] [place] [address] Tiana Sibley 10/22/2025 12:30 PM EST PACE Home Care / [facility] [address] [place] [address] Tiana Sibley 10/22/2025 5:00 PM EST PACE Home Care / [facility] [address] [place] [address] Tiana Sibley 10/23/2025 8:30 AM EST PACE Home Care / [facility] [address] [place] [address] Brigida Hendricks 10/23/2025 12:30 PM EST PACE Home Care / [facility] [address] [place] [phone] Brigida Hendricks 10/23/2025 5:30 PM EST PACE Home Care / [facility] [address] [place] [phone] Brigida Hendricks 10/24/2025 8:00 AM EST PACE Home Care / [facility] [address] [place] [phone] Melissa Raza 10/24/2025 12:30 PM EST PACE Home Care / [facility] [address] [place] [phone] Melissa Raza 10/24/2025 5:30 PM EST PACE Home Care / [facility] [address] [place] [phone] Daksha Yates 10/25/2025 8:00 AM EST PACE Home Care / [facility] [address] [place] [phone] Tiana Sibley 10/25/2025 12:30 PM EST PACE Home Care / [facility] [address] [place] [phone] Lata Ford 10/25/2025 5:30 PM EST PACE Home Care / [facility] [address] [place] [phone] Daksha Yates 10/26/2025 8:00 AM EST PACE Home Care / [facility] [place] [facility] [address] [place] [address] Melissa Raza 10/26/2025 12:30 PM EST PACE Home Care / [facility] Visit [facility] [address] [place] [address] Melissa Raza 10/26/2025 5:30 PM EST PACE Home Care / [facility] Visit [facility] [address] [place] [address] Daksha Yates 10/27/2025 8:00 AM EST PACE Home Care / [facility] Visit [facility] [address] [place] [phone] Tiana Sibley 10/27/2025 12:30 PM EST PACE Home Care / P[facility] Visit [facility] [address] [place] [phone] [facility]udy [facility] 10/27/2025 5:30 PM EST PACE Home Care / P[facility] Visit [facility] [address] [place] [phone] Daksha Yates 10/28/2025 8:30 AM EST PACE Home Care / [facility] Visit [facility] [address] [place] [phone] Tiana Sibley 10/28/2025 12:30 PM EST PACE Home Care / [facility] [address] [place] [phone] Daksha Yates 10/28/2025 5:30 PM EST PACE Home Care / [facility] [address] [place] [phone] Tiana Sibley 10/29/2025 8:30 AM EST PACE Home Care / [facility] [place] [facility] [address] [place] [address] Tiana Sibley 10/29/2025 12:30 PM EST PACE Home Care / [facility] [address] [place] [address] Tiana Sibley 10/29/2025 5:30 PM EST PACE Home Care / [facility] [place] [facility] [address] [place] [address] Tiana Sibley 10/30/2025 8:00 AM EST PACE Home Care / [facility] [place] [facility] [address] [place] [phone] Daksha Yates 10/30/2025 12:30 PM EST PACE Home Care / [facility] [address] [place] [phone] Daksha Yates 10/30/2025 5:30 PM EST PACE Home Care / [facility] [address] [place] [phone] Daksha Yates 10/31/2025 8:00 AM EST PACE Home Care / [facility] [address] [place] [phone] Melissa Raza 10/31/2025 12:30 PM EST PACE Home Care / [facility] [address] [place] [phone] Melissa Raza 10/31/2025 5:30 PM EST PACE Home Care / [facility] [address] [place] [phone] Daksha Yates 11/01/2025 8:00 AM EST PACE Home Care / [facility] [address] [place] [address] Tiana Sibley 11/01/2025 12:30 PM EST PACE Home Care / [facility] [address] [place] [address] Lata Ford 11/01/2025 5:30 PM EST PACE Home Care / [facility] [address] [place] [address] Daksha Yates 11/02/2025 8:00 AM EST PACE Home Care / [facility] [address] [place] [phone] Melissa Raza 11/02/2025 12:30 PM EST PACE Home Care / [facility] [address] [place] [phone] Melissa Raza 11/02/2025 5:30 PM EST PACE Home Care / [facility] [address] [place] [phone] Daksha Yates 11/03/2025 8:00 AM EST PACE Home Care / [facility] [address] [place] [phone] Tiana Sibley 11/03/2025 12:30 PM EST PACE Home Care / [facility] [place] [facility] [address] [place] [phone] Daksha Yates 11/03/2025 5:30 PM EST PACE Home Care / [facility] [address] [place] [phone] Daksha Yates 11/04/2025 8:30 AM EST PACE Home Care / [facility] [address] [place] [phone] Tiana Sibley 11/04/2025 12:30 PM EST PACE Home Care / [facility] [address] [place] [phone] Daksha Yates 11/04/2025 5:30 PM EST PACE Home Care / [facility] [address] [place] [phone] Tiana Sibley 11/05/2025 8:30 AM EST PACE Home Care / [facility] [address] [place] [phone] Tiana Sibley 11/05/2025 12:30 PM EST PACE Home Care / [facility] [address] [place] [phone] Tiana Sibley 11/05/2025 5:00 PM EST PACE Home Care / [facility] [address] [place] [phone] Tiana Sibley 11/06/2025 8:30 AM EST PACE Home Care / [facility] [address] [place] [phone] Brigida Hendricks 11/06/2025 12:30 PM EST PACE Home Care / [facility] [address] [place] [phone] Brigida Hendricks 11/06/2025 5:30 PM EST PACE Home Care / [facility] [address] [place] [phone] Brigida Hendricks 11/07/2025 8:00 AM EST PACE Home Care / [facility] [address] [place] [address] Melissa Raza 11/07/2025 12:30 PM EST PACE Home Care / [facility] [address] [place] [phone] Melissa Raza 11/07/2025 5:30 PM EST PACE Home Care / [facility] [address] [place] [phone] Daksha Yates 11/08/2025 8:00 AM EST PACE Home Care / [facility] [address] [place] [phone] Tiana Sibley 11/08/2025 12:30 PM EST PACE Home [facility] / [facility] [place] [facility] [facility] [address] [place] [phone] Lata Ford 11/08/2025 5:30 PM EST [facility] / [facility] [address] [place] [phone] Daksha Yates 11/09/2025 8:00 AM EST [facility] / [facility] [place] [facility] [address] [place] [phone] Melissa Raza 11/09/2025 12:30 PM EST [facility] / [facility] [place] [facility] [place] [facility] [address] [place] [phone] Melissa Raza 11/09/2025 5:30 PM EST [facility] / [facility] [place] [facility] [address] [place] [phone] Daksha Yates 11/10/2025 8:00 AM EST [facility] / [facility] [place] [facility] [place] [facility] [address] [place] [phone] Tiana Sibley 11/10/2025 12:30 PM EST [facility] / [facility] [place] [facility] [address] [place] [phone] [facility]/10/[facility]25 5:30 PM EST [facility] / [facility] [place] [facility] [address] [place] [phone] Trudy [facility] 11/11/2025 8:30 AM EST [facility] / [facility] [place] [facility] [address] [place] [phone] Tiana Sibley 11/11/2025 12:30 PM EST [facility] / [facility] [place] [facility] [address] [place] [phone] [facility] 11/11/2025 5:30 PM EST [facility] / [facility] [place] [facility] [address] [place] [phone] Tiana Sibley 11/12/2025 8:30 AM EST [facility] / [facility] [place] [facility] [address] [place] [phone] Tiana Sibley 11/12/2025 12:30 PM EST [facility] / [facility] [place] [facility] [address] [place] [phone] Tiana Sibley 11/12/2025 5:30 PM EST [facility] / [facility] [place] [facility] [place] [facility] [address] [place] [phone] Tiana Sibley 11/13/2025 8:00 AM EST [facility] / [facility] [place] [facility] [address] [place] [phone] Trudy [facility] 11/13/2025 12:30 PM EST [facility] / [facility] [place] [facility] [address] [place] [phone] Daksha Yates 11/13/2025 5:30 PM EST [facility] / [facility] [place] [facility] [address] [place] [phone] [facility] 11/14/2025 8:00 AM EST [facility] / [facility] [place] [facility] [place] [facility] [address] [place] [phone] Melissa Raza 11/14/2025 12:30 PM EST [facility] / [facility] [place] [facility] [address] [place] [phone] Melissa Raza 11/14/2025 5:30 PM EST [facility] / [facility] [place] [facility] [address] [place] [phone] [facility] 11/15/2025 8:00 AM EST [facility] / [facility] [place] [facility] [address] [place] [phone] Tiana Sibley 11/15/2025 12:30 PM EST [facility] / [facility] [place] [facility] [address] [place] [phone] Lata Ford 11/15/2025 5:30 PM EST [facility] / [facility] [place] [facility] [address] [place] [phone] Daksha Yates 11/16/2025 8:00 AM EST [facility] / [facility] [place] [facility] [address] [place] [phone] Melissa Raza 11/16/2025 12:30 PM EST [facility] / [facility] [place] [facility] [address] [place] [phone] Melissa Raza 11/16/2025 5:30 PM EST [facility] / [facility] [place] [facility] [address] [place] [phone] [facility] 11/17/2025 8:00 AM EST [facility] / [facility] [place] [facility] [address] [place] [phone] Tiana Sibley 11/17/2025 12:30 PM EST [facility] / [facility] [place] [facility] [place] [facility] [address] [place] [phone] Trudy [facility] 11/17/2025 5:30 PM EST [facility] Home [facility] / [facility] [place] [facility] [address] [place] [phone] Trudy [facility] 11/18/2025 8:30 AM EST [facility] / [facility] [place] [facility] [address] [place] [phone] Tiana Sibley 11/18/2025 12:30 PM EST [facility] / [facility] [place] [facility] [address] [place] [phone] [facility] 11/18/2025 5:30 PM EST [facility] / [facility] [place] [facility] [address] [place] [phone] Tiana Sibley 11/19/2025 8:30 AM EST [facility] / [facility] [place] [facility] [address] [place] [phone] Tiana Sibley 11/19/2025 12:30 PM EST [facility] / [facility] [place] [facility] [address] [place] [phone] Tiana Sibley 11/19/2025 5:00 PM EST [facility] / [facility] [place] [facility] [address] [place] [phone] Tiana Sibley 11/20/2025 8:30 AM EST [facility] / [facility] [place] [facility] [address] [place] [phone] Brigida Hendricks 11/20/2025 12:30 PM EST [facility] / [facility] [place] [facility] [address] [place] [phone] Brigida Hendricks 11/20/2025 5:30 PM EST [facility] / [facility] [place] [facility] [address] [place] [phone] Brigida Hendricks 11/21/2025 8:00 AM EST [facility] / [facility] [place] [facility] [address] [place] [phone] Melissa Raza 11/21/2025 12:30 PM EST [facility] / [facility] [address] [place] [phone] Melissa Raza 11/21/2025 5:30 PM EST [facility] / [facility] [address] [place] [phone] Daksha Yates 11/22/2025 8:00 AM EST [facility] / [facility] [address] [place] [phone] Tiana Sibley 11/22/2025 12:30 PM EST [facility] / [facility] [address] [place] [phone] Lata Ford 11/22/2025 5:30 PM EST [facility] / [facility] [address] [place] [phone] Daksha Yates Scheduled Referrals Name Type Priority Associated Diagnoses Orde r Schedule PACE Admisssion Outpatient Referral Routine Recurrent falls Lewy body dementia, unspecified dementia severity, unspecified whether behavioral, psychotic, or mood disturbance or anxiety (CMS/HCC V24, CMS/[facility] V28) Parkinson's disease, unspecified whether dyskinesia present, unspecified whether manifestations fluctuate (CMS/HCC V24, CMS/HCC V28) Ordered: 09/22/2025 documented as of this encounter Visit Diagnoses Diagnosis Recurrent falls- Primary Lewy body dementia, unspecified dementia severity, unspecified whether behavioral, psychotic, or mood disturbance or anxiety (CMS/HCC V24, CMS/HCC V28) Parkinson's disease, unspecified whether dyskinesia present, unspecified whether manifestations fluctuate (CMS/HCC V24, CMS/HCC V28) documented in this encounter Additional Health Concerns Assessment Noted Time PHQ-9 Depression Total Score: 3 03/25/20 25 11:12 AM EDT documented as of this encounter Care Teams Structural Engineer Relationship Specialty Start Date End Date Reyna Zuniga NP [address] [place] [phone] PCP - General Family Medicine 11/06/24 documented as of this encounter
--- OUTSIDE RECORDS SUMMARY | 2025-09-24 04:18 | XMS_ITS | Encounter Summary ---
Author Organization [facility] Address [address] [place] [address] Care Team Providers Care Dishwasher Name Role Phone Reyna Zuniga NP Primary Care Provider [phone] Encounter Details Date Type Department Care Team (Late st Contact Info) Description 09/19/2025 Plan of Care Documentation [facility] [place] [facility] [address] [place] [phone] Social History Tobacco Use Types Packs/Day Years [...] [facility] [address] [place] [phone] Asmita Matias 09/26/2025 1:30 PM EST PACE Assessment [facility] [address] [place] [phone] Fede Rock PT 09/26/2025 5:00 PM EST PACE Home Care / PACE Home Visit [facility] [address] [place] [address] Daksha Yates 09/27/2025 8:00 AM EST PACE Home Care / [facility] [place] [facility] [address] [place] [address] Tiana Sibley 09/27/2025 12:30 PM EST PACE Home Care / [facility] [facility] [place] [facility] [address] [place] [phone] Lata Ford 09/27/2025 5:30 PM EST PACE Home Care / [place] [facility] [place] [facility] [address] [place] [phone] Daksha Yates 09/28/2025 8:45 AM EST Clinical Support [facility] [place] [facility] [address] [place] [address] Federica Quintana LPN 09/28/2025 9:00 AM EST PACE Home Care / [facility] [place] [facility] [place] [facility] [address] [place] [phone] Melissa Raza 09/28/2025 12:30 PM EST PACE Home Care / [facility] [place] [facility] [address] [place] [phone] Melissa Raza 09/28/2025 5:30 PM EST PACE Home Care / [place] [facility] [place] [facility] [address] [place] [phone] Daksha Yates 09/30/2025 8:30 AM EST PACE Home Care / [facility] [place] [facility] [address] [place] [phone] Tiana Sibley 09/30/2025 9:00 AM EST Clinical Support [facility] [place] [facility] [address] [place] [address] Federica Quintana LPN 09/30/2025 12:30 PM EST PACE Home Care / [facility] [place] [facility] [address] [place] [address] Lata Ford 09/30/2025 5:30 PM EST PACE Home Care / [facility] [facility] [place] [facility] [address] [place] [address] Tiana Sibley 10/01/2025 8:30 AM EST PACE Home Care / [facility] [place] [facility] [address] [place] [phone] Tiana Sibley 10/01/2025 12:30 PM EST PACE Home Care / [facility] [place] [facility] [address] [place] [phone] Tiana Sibley 10/01/2025 5:30 PM EST PACE Home Care / [facility] [place] [facility] [address] [place] [phone] Tiana Sibley 10/02/2025 8:00 AM EST PACE Home Care / [facility] [place] [facility] [address] [place] [phone] Daksha Yates 10/02/2025 12:30 PM EST PACE Home Care / [facility] [place] [facility] [address] [place] [phone] Daksha Yates 10/02/2025 5:30 PM EST PACE Home Care / [facility] [place] [facility] [address] [place] [phone] Daksha Yates 10/03/2025 8:00 AM EST PACE Home Care / [facility] [place] [facility] [address] [place] [phone] Melissa Raza 10/03/2025 8:45 AM EST Clinical Support [facility] [place] [facility] [address] [place] [phone] Federica Quintana LPN 10/03/2025 12:30 PM EST PACE Home Care / [facility] [place] [facility] [address] [place] [phone] Melissa Raza 10/03/2025 5:30 PM EST PACE Home Care / [facility] Visit [facility] [place] [facility] [address] [place] [phone] Daksha Yates 10/04/2025 8:00 AM EST PACE Home Care / [facility] [address] [place] [phone] Tiana Sibley 10/04/2025 12:30 PM EST PACE Home Care / [facility] [address] [place] [phone] Lata Ford 10/04/2025 5:30 PM EST PACE Home Care / [facility] [place] [facility] [address] [place] [phone] Daksha Yates 10/05/2025 8:00 AM EST PACE Home Care / [facility] Visit [facility] [place] [facility] [address] [place] [phone] Melissa Raza 10/05/2025 12:30 PM EST PACE Home Care / [place] Visit [facility] [place] [facility] [address] [place] [phone] Melissa Raza 10/05/2025 5:30 PM EST PACE Home Care / [facility] [place] [facility] [address] [place] [address] [facility] 10/06/2025 8:00 AM EST P[facility] Home Care / [facility] [place] [facility] [address] [place] [address] Tiana Sibley 10/06/2025 12:30 PM EST PACE Home Care / [place] [place] [facility] [address] [place] [address] Trudy, Daksha 10/06/2025 5:30 PM EST PACE Home Care / [facility] [place] [facility] [address] [place] [address] DansDaksha harris 10/07/2025 8:30 AM EST PACE Home Care / [facility] [place] [facility] [address] [place] [address] Tiana Sibley 10/07/2025 12:30 PM EST PACE Home Care / [facility] [place] [facility] [address] [place] [phone] Daksha Yates 10/07/2025 5:30 PM EST PACE Home Care / [facility] [place] [facility] [address] [place] [address] Tiana Sibley 10/08/2025 8:30 AM EST PACE Home Care / [facility] [place] [facility] [address] [place] [phone] Tiana Sibley 10/08/2025 12:30 PM EST PACE Home Care / [facility] [place] [facility] [address] [place] [address] Tiana Sibley 10/08/2025 5:00 PM EST PACE Home Care / [facility] [place] [facility] [address] [place] [address] Tiana Sibley 10/09/2025 8:30 AM EST PACE Home Care / [facility] [place] [facility] [address] [place] [address] Brigida Hendricks 10/09/2025 12:30 PM EST P[facility] Home Care / [facility] [place] [facility] [address] [place] [address] Brigida Hendricks 10/09/2025 5:30 PM EST P[facility] Home Care / [facility] [place] [facility] [address] [place] [address] Brigida Hendricks 10/10/2025 8:00 AM EST PACE Home Care / [facility] [place] [facility] [address] [place] [phone] Melissa Raza 10/10/2025 12:30 PM EST PACE Home Care / [facility] [place] [facility] [address] [place] [phone] Melissa Raza 10/10/2025 5:30 PM EST P[facility] Home Care / [facility] [place] [facility] [address] [place] [phone] Daksha Yates 10/11/2025 8:00 AM EST P[facility] Home Care / [facility] [place] [facility] [address] [place] [phone] Tiana Sibley 10/11/2025 12:30 PM EST P[facility] Home Care / [facility] [place] [facility] [address] [place] [phone] Lata Ford 10/11/2025 5:30 PM EST PACE Home Care / [facility] [place] [facility] [address] [place] [address] Daksha Yates 10/12/2025 8:00 AM EST PACE Home Care / [facility] [address] [place] [address] Melissa Raza 10/12/2025 12:30 PM EST PACE Home Care / [facility] [address] [place] [phone] Melissa Raza 10/12/2025 5:30 PM EST PACE Home Care / [facility] Home Visit [facility] [place] [facility] [address] [place] [phone] Daksha Yates 10/13/2025 8:00 AM EST PACE Home Care / [facility] [address] [place] [phone] Tiana Sibley 10/13/2025 12:30 PM EST PACE Home Care / [facility] [address] [place] [phone] Daksha Yates 10/13/2025 5:30 PM EST PACE Home Care / [facility] [address] [place] [phone] [facility] 10/14/2025 8:30 AM EST PACE Home Care / [facility] [place] [facility] [address] [place] [phone] Tiana Sibley 10/14/2025 12:30 PM EST PACE Home Care / [facility] [place] [facility] [address] [place] [phone] Daksha Yates 10/14/2025 5:30 PM EST PACE Home Care / [facility] [place] [facility] [address] [place] [address] Tiana Sibley 10/15/2025 8:30 AM EST PACE Home Care / [facility] [place] [facility] [address] [place] [address] Tiana Sibley 10/15/2025 12:30 PM EST PACE Home Care / [facility] [place] [facility] [address] [place] [address] Tiana Sibley 10/15/2025 5:30 PM EST PACE Home Care / [facility] [place] [facility] [address] [place] [phone] Tiana Sibley 10/16/2025 8:00 AM EST PACE Home Care / [facility] [place] [facility] [address] [place] [phone] Dansereadaniel, [facility] 10/16/2025 12:30 PM EST PACE Home Care / [place] [facility] [place] [facility] [address] [place] [phone] Dansereau, [facility] 10/16/2025 5:30 PM EST PACE Home Care / [facility] [place] [facility] [address] [place] [phone] Dansereau, [facility] 10/17/2025 8:00 AM EST PACE Home Care / [place] [facility] [place] [facility] [address] [place] [phone] Melissa Raza 10/17/2025 12:30 PM EST PACE Home Care / [facility] [place] [facility] [address] [place] [phone] Melissa Raza 10/17/2025 5:30 PM EST PACE Home Care / [facility] [place] [facility] [address] [place] [phone] Daksha Yates 10/18/2025 8:00 AM EST P[facility] Home Care / [facility] [place] [facility] [address] [place] [phone] Tiana Sibley 10/18/2025 12:30 PM EST P[facility] Home Care / [facility] [place] [facility] [address] [place] [phone] Lata Ford 10/18/2025 5:30 PM EST PACE Home Care / [facility] [place] [facility] [address] [place] [phone] Daksha Yates 10/19/2025 8:00 AM EST P[facility] Home Care / [facility] [place] [facility] [address] [place] [phone] Melissa Raza 10/19/2025 12:30 PM EST P[facility] Home [facility] / [facility] [place] [facility] [address] [place] [phone] Melissa Raza 10/19/2025 5:30 PM EST PACE Home Care / [facility] [place] [facility] [address] [place] [phone] Daksha Yates 10/20/2025 8:00 AM EST PACE Home Care / [facility] [place] [facility] [address] [place] [phone] Tiana Sibley 10/20/2025 12:30 PM EST P[facility] Home Care / [facility] [place] [facility] [address] [place] [phone] Daksha Yates 10/20/2025 5:30 PM EST P[facility] Home Care / [facility] [place] [facility] [address] [place] [address] Daksha Yates 10/21/2025 8:30 AM EST PACE Home Care / [facility] [place] [facility] [address] [place] [address] Tiana Sibley 10/21/2025 12:30 PM EST PACE Home Care / [facility] [place] [facility] [address] [place] [phone] Daksha Yates 10/21/2025 5:30 PM EST PACE Home Care / [facility] [place] [facility] [address] [place] [phone] Tiana Sibley 10/22/2025 8:30 AM EST P[facility] Home [facility] / [facility] [place] [facility] [address] [place] [phone] Tiana Sibley 10/22/2025 12:30 PM EST PACE Home Care / [facility] [place] [facility] [address] [place] [phone] Tiana Sibley 10/22/2025 5:00 PM EST P[facility] Home Care / [facility] [place] [facility] [address] [place] [phone] Tiana Sibley 10/23/2025 8:30 AM EST P[facility] Home Care / [facility] [place] [facility] [address] [place] [phone] Brigida Hendricks 10/23/2025 12:30 PM EST PACE Home Care / [facility] [place] [facility] [address] [place] [phone] Brigida Hendricks 10/23/2025 5:30 PM EST PACE Home Care / [facility] [place] [facility] [address] [place] [address] Brigida Hendricks 10/24/2025 8:00 AM EST PACE Home Care / [facility] [place] [facility] [address] [place] [phone] Melissa Raza 10/24/2025 12:30 PM EST P[facility] Home Care / [facility] [place] [facility] [address] [place] [phone] Melissa Raza 10/24/2025 5:30 PM EST PACE Home Care / [facility] [place] [facility] [address] [place] [phone] Daksha Yates 10/25/2025 8:00 AM EST P[facility] Home [facility] / [facility] [place] [facility] [address] [place] [phone] Tiana Sibley 10/25/2025 12:30 PM EST P[facility] Home Care / [facility] [place] [facility] [address] [place] [phone] Lata Ford 10/25/2025 5:30 PM EST PACE Home Care / [facility] [place] [facility] [address] [place] [phone] Daksha Yates 10/26/2025 8:00 AM EST P[facility] Home Care / [facility] [place] [facility] [address] [place] [phone] Melissa Raza 10/26/2025 12:30 PM EST P[facility] Home Care / [facility] [place] [facility] [address] [place] [phone] Ry Melissa 10/26/2025 5:30 PM EST P[facility] Home Care / [facility] [address] [place] [address] Daksha Yates 10/27/2025 8:00 AM EST P[facility] Home Care / [facility] [place] [facility] [address] [place] [address] Tiana Sibley 10/27/2025 12:30 PM EST PACE Home Care / [facility] [place] [facility] [address] [place] [phone] Daksha Yates 10/27/2025 5:30 PM EST PACE Home Care / [facility] [place] [facility] [address] [place] [phone] [facility] 10/28/2025 8:30 AM EST P[facility] Home Care / [facility] [address] [place] [phone] Tiana Sibley 10/28/2025 12:30 PM EST PACE Home Care / [facility] [place] [facility] [address] [place] [phone] Daksha Yates 10/28/2025 5:30 PM EST P[facility] Home Care / [facility] [place] [facility] [address] [place] [phone] Tiana Sibley 10/29/2025 8:30 AM EST P[facility] Home Care / [facility] [place] [facility] [address] [place] [phone] Tiana Sibley 10/29/2025 12:30 PM EST P[facility] Home Care / [facility] [place] [facility] [address] [place] [address] Tiana Sibley 10/29/2025 5:30 PM EST PACE Home Care / [facility] [place] [facility] [address] [place] [address] Tiana Sibley 10/30/2025 8:00 AM EST P[facility] Home Care / [facility] [place] [facility] [address] [place] [address] [facility] 10/30/2025 12:30 PM EST P[facility] Home Care / [facility] [place] [facility] [address] [place] [phone] Daksha Yates 10/30/2025 5:30 PM EST P[facility] Home Care / [facility] [place] [facility] [address] [place] [phone] Daksha Yates 10/31/2025 8:00 AM EST P[facility] Home [facility] / [facility] [address] [place] [phone] Melissa Raza 10/31/2025 12:30 PM EST P[facility] Home [facility] / [facility] [address] [place] [phone] Melissa Raza 10/31/2025 5:30 PM EST P[facility] Home Care / [facility] [place] [facility] [address] [place] [phone] Daksha Yates 11/01/2025 8:00 AM EST P[facility] Home Care / [facility] [place] [facility] [address] [place] [phone] Tiana Sibley 11/01/2025 12:30 PM EST P[facility] Home Care / [facility] [place] [facility] [address] [place] [address] Lata Ford 11/01/2025 5:30 PM EST PACE Home Care / [facility] [address] [place] [address] Trudy, [facility] 11/02/2025 8:00 AM EST PACE Home Care / [facility] [address] [place] [address] Melissa Raza 11/02/2025 12:30 PM EST PACE Home Care / [facility] [address] [place] [address] Melissa Raza 11/02/2025 5:30 PM EST PACE Home Care / [facility] [address] [place] [address] [facility]ud[facility], [facility] 11/03/2025 8:00 AM EST PACE Home Care / [facility] [address] [place] [phone] Tiana Sibley 11/03/2025 12:30 PM EST PACE Home Care / [facility] Visit [facility] [address] [place] [phone] Trudy, [facility] 11/03/2025 5:30 PM EST P[facility] Home Care / [facility] [address] [place] [phone] Dansereadaniel, [facility] 11/04/2025 8:30 AM EST P[facility] Home [facility] / [facility] [address] [place] [phone] Tiana Sibley 11/04/2025 12:30 PM EST PACE Home Care / [facility] [place] [facility] [address] [place] [address] Daksha Yates 11/04/2025 5:30 PM EST P[facility] Home Care / [facility] [place] [facility] [address] [place] [address] Tiana Sibley 11/05/2025 8:30 AM EST P[facility] Home Care / [facility] [address] [place] [phone] Tiana Sibley 11/05/2025 12:30 PM EST P[facility] Home [facility] / [facility] [address] [place] [phone] Tiana Sibley 11/05/2025 5:00 PM EST P[facility] Home Care / [facility] [address] [place] [phone] Tiana Sibley 11/06/2025 8:30 AM EST PACE Home Care / [facility] [address] [place] [phone] Brigida Hendricks 11/06/2025 12:30 PM EST PACE Home Care / [facility] [address] [place] [phone] Brigida Hendricks 11/06/2025 5:30 PM EST PACE Home Care / [facility] [place] [facility] [address] [place] [phone] Brigida Hendricks 11/07/2025 8:00 AM EST P[facility] Home Care / [facility] [address] [place] [phone] Melissa Raza 11/07/2025 12:30 PM EST P[facility] Home Care / [facility] [address] [place] [address] Melissa Raza 11/07/2025 5:30 PM EST PACE Home Care / [facility] [place] [facility] [address] [place] [phone] Daksha Yates 11/08/2025 8:00 AM EST PACE Home Care / [facility] [place] [facility] [address] [place] [phone] Tiana Sibley 11/08/2025 12:30 PM EST PACE Home [facility] / [facility] [place] [facility] [address] [place] [phone] Lata Ford 11/08/2025 5:30 PM EST PACE Home [facility] / [facility] [place] [facility] [address] [place] [phone] Daksha Yates 11/09/2025 8:00 AM EST PACE Home Care / [facility] [place] [facility] [address] [place] [phone] Melissa Raza 11/09/2025 12:30 PM EST PACE Home Care / [facility] [place] [facility] [address] [place] [phone] Melissa Raza 11/09/2025 5:30 PM EST PACE Home Care / [facility] [address] [place] [phone] Daksha Yates 11/10/2025 8:00 AM EST PACE Home [facility] / [facility] [place] [facility] [address] [place] [phone] Tiana Sibley 11/10/2025 12:30 PM EST PACE Home Care / [facility] [place] [facility] [address] [place] [address] Daksha Yates 11/10/2025 5:30 PM EST PACE Home Care / [facility] [place] [facility] [address] [place] [phone] Daksha Yates 11/11/2025 8:30 AM EST P[facility] Home [facility] / [facility] [place] [facility] [address] [place] [phone] Tiana Sibley 11/11/2025 12:30 PM EST P[facility] Home [facility] / [facility] [address] [place] [phone] Daksha Yates 11/11/2025 5:30 PM EST [facility] [address] [place] [phone] Tiana Sibley 11/12/2025 8:30 AM EST [facility] / [facility] [address] [place] [phone] Tiana Sibley 11/12/2025 12:30 PM EST [facility] / [facility] [address] [place] [phone] Tiaan Sibley 11/12/2025 5:30 PM EST [facility] / [facility] [address] [place] [phone] Tiana Sibley 11/13/2025 8:00 AM EST [facility] / [facility] [address] [place] [phone] Daksha Yates 11/13/2025 12:30 PM EST [facility] / [facility] [address] [place] [phone] Daksha Yates 11/13/2025 5:30 PM EST [facility] / [facility] [address] [place] [phone] [facility]/14/[facility] 8:00 AM EST [facility] / [facility] [address] [place] [phone] Melissa Raza 11/14/2025 12:30 PM EST [facility] / [facility] [address] [place] [phone] Melissa Raza 11/14/2025 5:30 PM EST [facility] / [facility] [address] [place] [phone] [facility]/15/2025 8:00 AM EST [facility] / [facility] [address] [place] [phone] Tiana Sibley 11/15/2025 12:30 PM EST [facility] / [facility] [address] [place] [phone] Lata Ford 11/15/2025 5:30 PM EST [facility] / [facility] [address] [place] [phone] Daksha Yates 11/16/2025 8:00 AM EST [facility] / [facility] [address] [place] [phone] Melissa Raza 11/16/2025 12:30 PM EST [facility] / [facility] [address] [place] [phone] Melissa Raza 11/16/2025 5:30 PM EST [facility] / [facility] [address] [place] [phone] Daksha Yates 11/17/2025 8:00 AM EST [facility] / [facility] [address] [place] [phone] Tiana Sibley 11/17/2025 12:30 PM EST [facility] / [facility] [address] [place] [phone] Daksha Yates 11/17/2025 5:30 PM EST [facility] / [facility] [address] [place] [phone] Daksha Yates 11/18/2025 8:30 AM EST [facility] / [facility] [address] [place] [phone] Tiana Sibley 11/18/2025 12:30 PM EST [facility] / [facility] [address] [place] [phone] Daksha Yates 11/18/2025 5:30 PM EST [facility] / [facility] [address] [place] [phone] Tiana Sibley 11/19/2025 8:30 AM EST [facility] / [facility] [address] [place] [phone] Tiana Sibley 11/19/2025 12:30 PM EST [facility] / [facility] [address] [place] [phone] Tiana Sibley 11/19/2025 5:00 PM EST [facility] / [facility] [address] [place] [phone] Tiana Sibley 11/20/2025 8:30 AM EST [facility] / [facility] [address] [place] [phone] Brigida Hendricks 11/20/2025 12:30 PM EST [facility] / [facility] [address] [place] [phone] Brigida Hendricks 11/20/2025 5:30 PM EST [facility] / [facility] [address] [place] [phone] Brigida Hendricks 11/21/2025 8:00 AM EST [facility] / [facility] [address] [place] [phone] Melissa Raza 11/21/2025 12:30 PM EST [facility] / [facility] [address] [place] [phone] Melissa Raza 11/21/2025 5:30 PM EST [facility] / [facility] [address] [place] [phone] Daksha Yates 11/22/2025 8:00 AM EST [facility] / [facility] [address] [place] [phone] Tiana Sibley 11/22/2025 12:30 PM EST [facility] / [facility] [address] [place] [phone] Lata Ford 11/22/2025 5:30 PM EST [facility] / [facility] [address] [place] [phone] Daksha Yates documented as of this encounter Visit Diagnoses Not on filedocumented in this encounter Additional Health Concerns Assessment Noted Time PHQ-9 Depression Total Score: 3 03/25/20 11:12 AM EDT documented as of this encounter Care Teams Dishwasher Relationship Specialty Start Date End Date Reyna Zuniga NP [address] [place] [phone] PCP - General Family Medicine 11/06/24 documented as of this encounter
--- OUTSIDE RECORDS SUMMARY | 2025-09-24 04:18 | XMS_ITS ---
Author Organization [facility] Address [facility] [place] [address] Phone Care Team Providers Care Director Of Business Development Name Role Phone Reyna Zuniga FILM PROCESSING UTILITY WORKER Primary Care Provider [phone] Program of [facility] Status:Enrolled (Active) Start date:10/06/2023 Enrollment date:10/06/2023 Related social drivers of health:Housing Instability, Financial Risk, Transportation, Social Isolation, Food Risk Related service episodes:[facility] (Active) Case Team Name Relationship Phone Juventino Del Angel FILM PROCESSING UTILITY WORKER Nurse Practitioner [phone] Vy Kapadia RN Grading Machine Feeder Antonio Andrade OT Occupational Therapist Matt Moreno RN Registered Nurse Anika Abarca RD Dietitijosh Balderas LIGHTING ENGINEERING TECHNICIAN Agricultural Real Estate Agent Elis Paniagua RN Grading Machine Feeder Stephanie Allen [facility] Agricultural Real Estate Agent Chadwick [facility] Jessica Roman PT Physical Therapist Alvina PARTIDAW Agricultural Real Estate Agent Fede Rock PT Physical Therapist Ilsa Frias MD Primary Care Provider Continued Care and Services Coordination
--- OUTSIDE RECORDS SUMMARY | 2025-09-24 04:18 | XMS_ITS | Encounter Summary ---
Author Organization [facility] Address [address] [place] [address] Care Team Providers Care Public Relations Consultant Name Role Phone Reyna Zuniga NP Primary Care Provider [phone] Encounter Details Date Type Department Care Team (Late st Contact Info) Description 09/18/2025 PACE Fall [facility] [place] [facility] [address] [place] [phone] Anne-Marie Cook PCA Social History Tobacco Use Types Packs/Day Years [...] In Home Nursing [facility] Services [address] [place] [phone] Asmita Matias 09/26/2025 1:30 PM EST PACE Assessment [facility] [address] [place] [phone] Fede Rock PT 09/26/2025 5:00 PM EST PACE Home Care / [place] Visit [facility] [place] [facility] [address] [place] [address] Daksha Yates 09/27/2025 8:00 AM EST PACE Home Care / [place] Visit [facility] [place] [facility] [address] [place] [address] Tiana Sibley 09/27/2025 12:30 PM EST PACE Home Care / [place] Home Visit [facility] [place] [facility] [address] [place] [address] Lata Ford 09/27/2025 5:30 PM EST PACE Home Care / [place] [facility] [place] [facility] [address] [place] [phone] Daksha Yates 09/28/2025 8:45 AM EST Clinical Support [facility] [place] [facility] [address] [place] [phone] Federica Quintana LPN 09/28/2025 9:00 AM EST PACE Home Care / [place] [facility] [place] [facility] [address] [place] [phone] Melissa Raza 09/28/2025 12:30 PM EST PACE Home Care / [place] Visit [facility] [place] [facility] [address] [place] [phone] Melissa Raza 09/28/2025 5:30 PM EST PACE Home Care / [place] Visit [facility] [place] [facility] [address] [place] [phone] Daksha Yates 09/30/2025 8:30 AM EST PACE Home Care / [place] [facility] [place] [facility] [address] [place] [phone] Tiana Sibley 09/30/2025 9:00 AM EST Clinical Support [facility] [place] [facility] [address] [place] [address] Federica Quintana LPN 09/30/2025 12:30 PM EST PACE Home Care / [place] [facility] [place] [facility] [address] [place] [address] Lata Ford 09/30/2025 5:30 PM EST PACE Home Care / [place] Visit [facility] [place] [facility] [address] [place] [address] Tiana Sibley 10/01/2025 8:30 AM EST PACE Home Care / [place] [facility] Visit [facility] [place] [facility] [address] [place] [address] Tiana Sibley 10/01/2025 12:30 PM EST PACE Home Care / [place] Visit [facility] [place] [facility] [address] [place] [phone] Tiana Sibley 10/01/2025 5:30 PM EST PACE Home Care / [place] [facility] Visit [facility] [place] [facility] [address] [place] [phone] Tiana Sibley 10/02/2025 8:00 AM EST PACE Home Care / [place] Visit [facility] [place] [facility] [address] [place] [phone] Daksha Yates 10/02/2025 12:30 PM EST PACE Home Care / [place] Visit [facility] [place] [facility] [address] [place] [phone] Daksha Yates 10/02/2025 5:30 PM EST PACE Home Care / [place] Visit [facility] [place] [facility] [address] [place] [phone] Daksha Yates 10/03/2025 8:00 AM EST PACE Home Care / [place] Visit [facility] [place] [facility] [address] [place] [address] Melissa Raza 10/03/2025 8:45 AM EST Clinical Support [facility] [address] [place] [address] Federica Quintana LPN 10/03/2025 12:30 PM EST PACE Home Care / [facility] Visit [facility] [address] [place] [address] Melissa Raza 10/03/2025 5:30 PM EST PACE Home Care / [facility] Visit [facility] [address] [place] [phone] Daksha Yates 10/04/2025 8:00 AM EST PACE Home Care / [facility] Visit [facility] [address] [place] [phone] Tiana Sibley 10/04/2025 12:30 PM EST PACE Home Care / [facility] Visit [facility] [place] [facility] [address] [place] [phone] Lata Ford 10/04/2025 5:30 PM EST PACE Home Care / [facility] Visit [facility] [address] [place] [phone] Daksha Yates 10/05/2025 8:00 AM EST PACE Home Care / [facility] Visit [facility] [address] [place] [phone] Melissa Raza 10/05/2025 12:30 PM EST PACE Home Care / [facility] Visit [facility] [address] [place] [phone] Melissa Raza 10/05/2025 5:30 PM EST PACE Home Care / [place] [facility] [place] [facility] [address] [place] [phone] Trudy, Daksha 10/06/2025 8:00 AM EST PACE Home Care / [place] Visit [facility] [place] [facility] [address] [place] [address] Tiana Sibley 10/06/2025 12:30 PM EST PACE Home Care / [place] Visit [facility] [place] [facility] [address] [place] [phone] Trudy, Daksha 10/06/2025 5:30 PM EST PACE Home Care / [place] Visit [facility] [place] [facility] [address] [place] [phone] Keshakimberly, Daksha 10/07/2025 8:30 AM EST PACE Home Care / [place] Visit [facility] [place] [facility] [address] [place] [phone] Tiana Sibley 10/07/2025 12:30 PM EST PACE Home Care / [place] Visit [facility] [place] [facility] [address] [place] [phone] Danskimberly, Daksha 10/07/2025 5:30 PM EST PACE Home Care / [place] [facility] Visit [facility] [place] [facility] [address] [place] [phone] Tiana Sibley 10/08/2025 8:30 AM EST PACE Home Care / [place] Visit [facility] [place] [facility] [address] [place] [phone] Tiana Sibley 10/08/2025 12:30 PM EST PACE Home Care / [place] Visit [facility] [place] [facility] [address] [place] [phone] Tiana Sibley 10/08/2025 5:00 PM EST PACE Home Care / [place] Visit [facility] [place] [facility] [address] [place] [address] Tiana Sibley 10/09/2025 8:30 AM EST PACE Home Care / [place] [facility] Visit [facility] [place] [facility] [address] [place] [address] Brigida Hendricks 10/09/2025 12:30 PM EST PACE Home Care / [place] Visit [facility] [place] [facility] [address] [place] [phone] Brigida Hendricks 10/09/2025 5:30 PM EST PACE Home Care / [place] Visit [facility] [place] [facility] [address] [place] [phone] Brigida Hendricks 10/10/2025 8:00 AM EST PACE Home Care / [place] Visit [facility] [place] [facility] [address] [place] [phone] Melissa Raza 10/10/2025 12:30 PM EST PACE Home Care / [place] Visit [facility] [place] [facility] [address] [place] [phone] Melissa Raza 10/10/2025 5:30 PM EST PACE Home Care / [place] Visit [facility] [place] [facility] [address] [place] [phone] Daksha Yates 10/11/2025 8:00 AM EST PACE Home Care / [place] Visit [facility] [place] [facility] [address] [place] [phone] Tiana Sibley 10/11/2025 12:30 PM EST PACE Home Care / [place] Visit [facility] [place] [facility] [address] [place] [phone] Lata Ford 10/11/2025 5:30 PM EST PACE Home Care / [place] Visit [facility] [place] [facility] [address] [place] [address] Daksha Yates 10/12/2025 8:00 AM EST PACE Home Care / [place] Visit [facility] [place] [facility] [address] [place] [phone] Melissa Raza 10/12/2025 12:30 PM EST PACE Home Care / [place] [facility] Visit [facility] [place] [facility] [address] [place] [phone] Melissa Raza 10/12/2025 5:30 PM EST PACE Home Care / [place] Visit [facility] [place] [facility] [address] [place] [phone] Daksha Yates 10/13/2025 8:00 AM EST PACE Home Care / [place] Visit [facility] [place] [facility] [address] [place] [phone] Tiana Sibley 10/13/2025 12:30 PM EST PACE Home Care / [place] Visit [facility] [place] [facility] [address] [place] [phone] Daksha Yates 10/13/2025 5:30 PM EST PACE Home Care / [place] Visit [facility] [place] [facility] [address] [place] [phone] DansDaksha harris 10/14/2025 8:30 AM EST PACE Home Care / [place] Visit [facility] [place] [facility] [address] [place] [phone] Tiana Sibley 10/14/2025 12:30 PM EST PACE Home Care / [place] Visit [facility] [place] [facility] [address] [place] [phone] Daksha Yates 10/14/2025 5:30 PM EST PACE Home Care / [place] Visit [facility] [place] [facility] [address] [place] [address] Tiana Sibley 10/15/2025 8:30 AM EST PACE Home Care / [place] Visit [facility] [place] [facility] [address] [place] [address] Tiana Sibley 10/15/2025 12:30 PM EST PACE Home Care / [place] Visit [facility] [place] [facility] [address] [place] [phone] Tiana Sibley 10/15/2025 5:30 PM EST PACE Home Care / [place] Visit [facility] [place] [facility] [address] [place] [phone] Tiana Sibley 10/16/2025 8:00 AM EST PACE Home Care / [place] Visit [facility] [place] [facility] [address] [place] [phone] Trudy, [facility] 10/16/2025 12:30 PM EST PACE Home Care / [place] Visit [facility] [place] [facility] [address] [place] [phone] Dansereau, [facility] 10/16/2025 5:30 PM EST PACE Home Care / [place] Visit [facility] [place] [facility] [address] [place] [phone] Dansereau, [facility] 10/17/2025 8:00 AM EST PACE Home Care / [place] Visit [facility] [place] [facility] [address] [place] [phone] Melissa Raza 10/17/2025 12:30 PM EST PACE Home Care / [place] Visit [facility] [place] [facility] [address] [place] [phone] Melissa Raza 10/17/2025 5:30 PM EST PACE Home Care / [place] Visit [facility] [place] [facility] [address] [place] [address] Daksha Yates 10/18/2025 8:00 AM EST PACE Home Care / [place] [facility] Visit [facility] [place] [facility] [address] [place] [address] Tiana Sibley 10/18/2025 12:30 PM EST PACE Home Care / [place] [facility] Visit [facility] [place] [facility] [address] [place] [phone] Lata Ford 10/18/2025 5:30 PM EST PACE Home Care / [place] Visit [facility] [place] [facility] [address] [place] [phone] Daksha Yates 10/19/2025 8:00 AM EST PACE Home Care / [place] [facility] Visit [facility] [place] [facility] [address] [place] [phone] Melissa Raza 10/19/2025 12:30 PM EST PACE Home Care / [place] [facility] Visit [facility] [place] [facility] [address] [place] [phone] Melissa Raza 10/19/2025 5:30 PM EST PACE Home Care / [place] [facility] Visit [facility] [place] [facility] [address] [place] [phone] Daksha Yates 10/20/2025 8:00 AM EST PACE Home Care / [place] Visit [facility] [place] [facility] [address] [place] [phone] Tiana Sibley 10/20/2025 12:30 PM EST PACE Home Care / [place] [facility] Visit [facility] [place] [facility] [address] [place] [phone] Daksha Yates 10/20/2025 5:30 PM EST PACE Home Care / [place] Visit [facility] [place] [facility] [address] [place] [address] Daksha Yates 10/21/2025 8:30 AM EST PACE Home Care / [place] [facility] Visit [facility] [place] [facility] [address] [place] [address] Tiana Sibley 10/21/2025 12:30 PM EST PACE Home Care / [place] [facility] Visit [facility] [place] [facility] [address] [place] [phone] Daksha Yates 10/21/2025 5:30 PM EST PACE Home Care / [place] [facility] Visit [facility] [place] [facility] [address] [place] [phone] Tiana Sibley 10/22/2025 8:30 AM EST PACE Home Care / [place] [facility] Visit [facility] [place] [facility] [address] [place] [phone] Tiana Sibley 10/22/2025 12:30 PM EST PACE Home Care / [place] [facility] Visit [facility] [place] [facility] [address] [place] [phone] Tiana Sibley 10/22/2025 5:00 PM EST PACE Home Care / [place] [facility] Visit [facility] [place] [facility] [address] [place] [phone] Tiana Sibley 10/23/2025 8:30 AM EST PACE Home Care / [place] [facility] Visit [facility] [place] [facility] [address] [place] [phone] Brigida Hendricks 10/23/2025 12:30 PM EST PACE Home Care / [place] [facility] Visit [facility] [place] [facility] [address] [place] [address] Brigida Hendricks 10/23/2025 5:30 PM EST PACE Home Care / [place] [facility] Visit [facility] [place] [facility] [address] [place] [address] Brigida Hendricks 10/24/2025 8:00 AM EST PACE Home Care / [place] [facility] Visit [facility] [place] [facility] [address] [place] [phone] Melissa Raza 10/24/2025 12:30 PM EST PACE Home Care / [place] [facility] Visit [facility] [place] [facility] [address] [place] [phone] Melissa Raza 10/24/2025 5:30 PM EST PACE Home Care / [place] [facility] Visit [facility] [place] [facility] [address] [place] [phone] Daksha Yates 10/25/2025 8:00 AM EST PACE Home Care / [place] [facility] Visit [facility] [place] [facility] [address] [place] [phone] Tiana Sibley 10/25/2025 12:30 PM EST PACE Home Care / [place] [facility] Visit [facility] [place] [facility] [address] [place] [phone] Lata Ford 10/25/2025 5:30 PM EST PACE Home Care / [place] [facility] Visit [facility] [place] [facility] [address] [place] [phone] Daksha Yates 10/26/2025 8:00 AM EST PACE Home Care / [place] [facility] Visit [facility] [place] [facility] [address] [place] [phone] Melissa Raza 10/26/2025 12:30 PM EST PACE Home Care / [place] [facility] Visit [facility] [place] [facility] [address] [place] [address] Melissa Raza 10/26/2025 5:30 PM EST PACE Home Care / [place] [facility] Visit [facility] [place] [facility] [address] [place] [phone] Daksha Yates 10/27/2025 8:00 AM EST PACE Home Care / [place] [facility] Visit [facility] [place] [facility] [address] [place] [phone] Tiana Sibley 10/27/2025 12:30 PM EST PACE Home Care / [place] [facility] Visit [facility] [place] [facility] [address] [place] [phone] Daksha Yates 10/27/2025 5:30 PM EST PACE Home Care / [place] [facility] Visit [facility] [place] [facility] [address] [place] [phone] Daksha Yates 10/28/2025 8:30 AM EST PACE Home Care / [place] [facility] Visit [facility] [place] [facility] [address] [place] [phone] Tiana Sibley 10/28/2025 12:30 PM EST PACE Home Care / [place] [facility] Visit [facility] [place] [facility] [address] [place] [phone] Daksha Yates 10/28/2025 5:30 PM EST PACE Home Care / [place] [facility] Visit [facility] [place] [facility] [address] [place] [phone] Tiana Sibley 10/29/2025 8:30 AM EST PACE Home Care / [place] [facility] Visit [facility] [place] [facility] [address] [place] [phone] Tiana Sibley 10/29/2025 12:30 PM EST PACE Home Care / [place] [facility] Visit [facility] [place] [facility] [address] [place] [address] Tiana Sibley 10/29/2025 5:30 PM EST PACE Home Care / [facility] [place] [facility] [address] [place] [address] Tiana Sibley 10/30/2025 8:00 AM EST PACE Home Care / [facility] Visit [facility] [place] [facility] [address] [place] [phone] Daksha Yates 10/30/2025 12:30 PM EST PACE Home Care / [facility] [place] [facility] [address] [place] [phone] Daksha Yates 10/30/2025 5:30 PM EST PACE Home Care / [facility] [place] [facility] [address] [place] [phone] Daksha Yates 10/31/2025 8:00 AM EST PACE Home Care / [facility] Visit [facility] [place] [facility] [address] [place] [phone] Melisas Raza 10/31/2025 12:30 PM EST PACE Home Care / [facility] Visit [facility] [place] [facility] [address] [place] [phone] Melissa Raza 10/31/2025 5:30 PM EST PACE Home Care / [facility] Visit [facility] [place] [facility] [address] [place] [phone] Daksha Yates 11/01/2025 8:00 AM EST PACE Home Care / [facility] Visit [facility] [place] [facility] [address] [place] [phone] Tiana Sibley 11/01/2025 12:30 PM EST PACE Home Care / [place] Visit [facility] [place] [facility] [address] [place] [address] Lata Ford 11/01/2025 5:30 PM EST PACE Home Care / [place] Visit [facility] [place] [facility] [address] [place] [address] Danskimberly, [facility] 11/02/2025 8:00 AM EST PACE Home Care / [facility] Visit [facility] [place] [facility] [address] [place] [phone] Melissa Raza 11/02/2025 12:30 PM EST PACE Home Care / [facility] Visit [facility] [place] [facility] [address] [place] [phone] Melissa Raza 11/02/2025 5:30 PM EST PACE Home Care / [facility] [place] [facility] [address] [place] [phone] [facility]/03/[facility] 8:00 AM EST PACE Home Care / [facility] [place] [facility] [address] [place] [phone] Tiana Sibley 11/03/2025 12:30 PM EST PACE Home Care / [facility] Visit [facility] [place] [facility] [address] [place] [phone] Dansereau, [facility] 11/03/2025 5:30 PM EST PACE Home Care / [facility] Visit [facility] [place] [facility] [address] [place] [phone] Dansereau, [facility] 11/04/2025 8:30 AM EST PACE Home Care / [facility] Visit [facility] [place] [facility] [address] [place] [phone] Tiana Sibley 11/04/2025 12:30 PM EST PACE Home Care / [facility] [place] [facility] [address] [place] [address] Daksha Yates 11/04/2025 5:30 PM EST PACE Home Care / [facility] Visit [facility] [place] [facility] [address] [place] [phone] Tiana Sibley 11/05/2025 8:30 AM EST PACE Home Care / [facility] [place] [facility] [address] [place] [phone] Tiana Sibley 11/05/2025 12:30 PM EST PACE Home Care / [facility] [place] [facility] [address] [place] [phone] Tiana Sibley 11/05/2025 5:00 PM EST PACE Home Care / [facility] [place] [facility] [address] [place] [phone] Tiana Sibley 11/06/2025 8:30 AM EST PACE Home Care / [facility] [place] [facility] [address] [place] [phone] Brigida Hendricks 11/06/2025 12:30 PM EST PACE Home Care / [place] Visit [facility] [place] [facility] [address] [place] [phone] Brigida Hendricks 11/06/2025 5:30 PM EST PACE Home Care / [place] [place] [facility] [address] [place] [phone] Brigida Hendricks 11/07/2025 8:00 AM EST PACE Home Care / [place] Visit [facility] [place] [facility] [address] [place] [phone] Melissa Raza 11/07/2025 12:30 PM EST PACE Home Care / [facility] Visit [facility] [place] [facility] [address] [place] [phone] Melissa Raza 11/07/2025 5:30 PM EST PACE Home Care / [place] [place] [facility] [address] [place] [phone] Daksha Yates 11/08/2025 8:00 AM EST PACE Home Care / [place] [place] [facility] [address] [place] [phone] Tiana Sibley 11/08/2025 12:30 PM EST PACE Home Care / [place] [place] [facility] [address] [place] [phone] Lata Ford 11/08/2025 5:30 PM EST PACE Home Care / [facility] [place] [facility] [address] [place] [phone] Daksha Yates 11/09/2025 8:00 AM EST PACE Home Care / [facility] [place] [facility] [address] [place] [phone] Melissa Raza 11/09/2025 12:30 PM EST PACE Home Care / [facility] [place] [facility] [address] [place] [phone] Melissa Raza 11/09/2025 5:30 PM EST PACE Home Care / [facility] [place] [facility] [address] [place] [phone] Daksha Yates 11/10/2025 8:00 AM EST PACE Home Care / [facility] [place] [facility] [address] [place] [phone] Tiana Sibley 11/10/2025 12:30 PM EST PACE Home Care / [facility] [place] [facility] [address] [place] [phone] Daksha Yates 11/10/2025 5:30 PM EST PACE Home Care / [facility] [place] [facility] [address] [place] [phone] Daksha Yates 11/11/2025 8:30 AM EST PACE Home Care / [facility] [place] [facility] [address] [place] [phone] Tiana Sibley 11/11/2025 12:30 PM EST PACE Home Care / [facility] [place] [facility] [address] [place] [phone] Daksha Yates 11/11/2025 5:30 PM EST PACE Home Care / [facility] [place] [facility] [address] [place] [phone] Tiana Sibley 11/12/2025 8:30 AM EST PACE Home Care / [facility] [place] [facility] [address] [place] [phone] Tiana Sibley 11/12/2025 12:30 PM EST PACE Home Care / [facility] [place] [facility] [address] [place] [phone] Tiana Sibley 11/12/2025 5:30 PM EST PACE Home Care / [place] [place] [facility] [address] [place] [phone] Tiana Sibley 11/13/2025 8:00 AM EST PACE Home Care / [facility] [place] [facility] [address] [place] [phone] [facility] 11/13/2025 12:30 PM EST PACE Home Care / [facility] [place] [facility] [address] [place] [phone] Daksha Yates 11/13/2025 5:30 PM EST [facility] / [facility] [address] [place] [phone] Daksha Yates 11/14/2025 8:00 AM EST [facility] Home [facility] / [facility] [address] [place] [phone] Melissa Raza 11/14/2025 12:30 PM EST [facility] Home [facility] / [facility] [address] [place] [phone] Melissa Raza 11/14/2025 5:30 PM EST [facility] Home [facility] / [facility] [address] [place] [phone] [facility]/15/[facility] 8:00 AM EST [facility] / [facility] [address] [place] [phone] Tiana Sibley 11/15/2025 12:30 PM EST [facility] / [facility] [address] [place] [phone] Lata Ford 11/15/2025 5:30 PM EST [facility] / [facility] [address] [place] [phone] [facility]/16/2025 8:00 AM EST [facility] / [facility] [address] [place] [address] [place] [phone] Melissa Raza 11/16/2025 12:30 PM EST [facility] / [facility] [address] [place] [phone] Melissa Raza 11/16/2025 5:30 PM EST [facility] / [facility] [address] [place] [phone] Daksha Yates 11/17/2025 8:00 AM EST [facility] / [facility] [address] [place] [phone] Tiana Sibley 11/17/2025 12:30 PM EST [facility] / [facility] [address] [place] [phone] Daksha Yates 11/17/2025 5:30 PM EST [facility] / [facility] [address] [place] [phone] Daksha Yates 11/18/2025 8:30 AM EST [facility] / [facility] [address] [place] [phone] Tiana Sibley 11/18/2025 12:30 PM EST [facility] / [facility] [address] [place] [phone] Daksha Yates 11/18/2025 5:30 PM EST [facility] / [facility] [address] [place] [phone] Tiana Sibley 11/19/2025 8:30 AM EST [facility] / [facility] [address] [place] [phone] Tiana Sibley 11/19/2025 12:30 PM EST [facility] / [facility] [address] [place] [phone] Tiana Sibley 11/19/2025 5:00 PM EST [facility] / [facility] [address] [place] [phone] Tiana Sibley 11/20/2025 8:30 AM EST [facility] / [facility] [address] [place] [phone] Brigida Hendricks 11/20/2025 12:30 PM EST [facility] / [facility] [address] [place] [phone] Brigida Hendricks 11/20/2025 5:30 PM EST [facility] / [facility] [address] [place] [phone] Brigida Hendricks 11/21/2025 8:00 AM EST [facility] / [facility] [address] [place] [phone] Melissa Raza 11/21/2025 12:30 PM EST [facility] / [facility] [address] [place] [phone] Melissa Raza 11/21/2025 5:30 PM EST [facility] / [facility] [address] [place] [phone] Daksha Yates 11/22/2025 8:00 AM EST [facility] / [facility] [address] [place] [phone] Tiana Sibley 11/22/2025 12:30 PM EST [facility] / [facility] [address] [place] [phone] Lata Ford 11/22/2025 5:30 PM EST [facility] / [facility] [address] [place] [phone] Daksha Yates documented as of this encounter Visit Diagnoses Not on filedocumented in this encounter Additional Health Concerns Assessment Noted Time PHQ-9 Depression Total Score: 3 03/25/20 11:12 AM EDT documented as of this encounter Care Teams Public Relations Consultant Relationship Specialty Start Date End Date Reyna Zuniga NP [address] [place] [phone] PCP - General Family Medicine 11/06/24 documented as of this encounter
--- OUTSIDE RECORDS SUMMARY | 2025-09-24 04:18 | XMS_ITS | Encounter Summary ---
Author Organization [facility] Address [address] [place] [address] Care Team Providers Care Crime Scene Specialist Name Role Phone Reyna Zuniga NP Primary Care Provider [phone] Encounter Details Date Type Department Care Team (Late st Contact Info) Description 02/15/2025 Health Home [facility] Service [facility] [place] [facility] [address] [place] [phone] Jia Lowe RN Social History Tobacco Use [...] In [facility] Services [address] [place] [phone] Asmita Matias 09/26/2025 1:30 PM EST PACE Assessment [facility] [place] Physical Therapy [address] [place] [phone] Fede Rock PT 09/26/2025 5:00 PM EST PACE Home Care / PACE Home Visit [facility] [address] [place] [address] Daksha Yates 09/27/2025 8:00 AM EST PACE Home Care / [facility] [place] [facility] [address] [place] [address] Tiana Sibley 09/27/2025 12:30 PM EST PACE Home Care / [facility] Visit [facility] [place] [facility] [address] [place] [address] Lata Ford 09/27/2025 5:30 PM EST PACE Home Care / [place] [facility] [place] [facility] [address] [place] [phone] Daksha Yates 09/28/2025 8:45 AM EST Clinical Support [facility] [place] [facility] [address] [place] [phone] Federica Quintana LPN 09/28/2025 9:00 AM EST PACE Home Care / [facility] [facility] [place] [facility] [address] [place] [phone] Melissa Raza 09/28/2025 12:30 PM EST PACE Home Care / [facility] [facility] Visit [facility] [place] [facility] [address] [place] [phone] Melissa Raza 09/28/2025 5:30 PM EST PACE Home Care / [place] [facility] Visit [facility] [place] [facility] [address] [place] [phone] Daksha Yates 09/30/2025 8:30 AM EST PACE Home Care / [place] [facility] [place] [facility] [address] [place] [phone] Tiana Sibley 09/30/2025 9:00 AM EST Clinical Support [facility] [place] [facility] [address] [place] [phone] Federica Quintana LPN 09/30/2025 12:30 PM EST PACE Home Care / [place] [place] [facility] [address] [place] [address] Lata Ford 09/30/2025 5:30 PM EST PACE Home Care / [place] [facility] Visit [facility] [place] [facility] [address] [place] [address] Tiana Sibley 10/01/2025 8:30 AM EST PACE Home Care / [facility] [place] [facility] [address] [place] [phone] Tiana Sibley 10/01/2025 12:30 PM EST PACE Home Care / [facility] [facility] [place] [facility] [address] [place] [phone] Tiana Sibley 10/01/2025 5:30 PM EST PACE Home Care / [place] [facility] [place] [facility] [address] [place] [phone] Tiaan Sibley 10/02/2025 8:00 AM EST PACE Home Care / [place] [facility] [place] [facility] [address] [place] [phone] Daksha Yates 10/02/2025 12:30 PM EST PACE Home Care / [facility] [place] [facility] [address] [place] [phone] Daksha Yates 10/02/2025 5:30 PM EST PACE Home Care / [facility] [facility] [place] [facility] [address] [place] [phone] Daksha Yates 10/03/2025 8:00 AM EST PACE Home Care / [place] [facility] Visit [facility] [place] [facility] [address] [place] [address] Melissa Raza 10/03/2025 8:45 AM EST Clinical Support [facility] [place] [facility] [address] [place] [address] Federica Quintana LPN 10/03/2025 12:30 PM EST PACE Home Care / [facility] Visit [facility] [place] [facility] [address] [place] [address] Melissa Raza 10/03/2025 5:30 PM EST PACE Home Care / [facility] [place] [facility] [address] [place] [phone] Daksha Yates 10/04/2025 8:00 AM EST PACE Home Care / [facility] [place] [facility] [address] [place] [phone] Tiana Sibley 10/04/2025 12:30 PM EST PACE Home Care / [facility] Visit [facility] [place] [facility] [address] [place] [phone] Lata Ford 10/04/2025 5:30 PM EST PACE Home Care / [facility] Visit [facility] [place] [facility] [address] [place] [phone] Daksha Yates 10/05/2025 8:00 AM EST PACE Home Care / [facility] Visit [facility] [place] [facility] [address] [place] [address] Melissa Raza 10/05/2025 12:30 PM EST PACE Home Care / [place] [facility] Visit [facility] [place] [facility] [address] [place] [address] Melissa Raza 10/05/2025 5:30 PM EST PACE Home Care / [place] [facility] Visit [facility] [place] [facility] [address] [place] [address] Trudy, [facility] 10/06/2025 8:00 AM EST PACE Home Care / [place] [facility] Visit [facility] [place] [facility] [address] [place] [address] Tiana Sibley 10/06/2025 12:30 PM EST PACE Home Care / [place] [facility] Visit [facility] [place] [facility] [address] [place] [address] Danskimberly, [facility] 10/06/2025 5:30 PM EST PACE Home Care / [place] Visit [facility] [place] [facility] [address] [place] [phone] Dansereadaniel, [facility] 10/07/2025 8:30 AM EST PACE Home Care / [place] [facility] Visit [facility] [place] [facility] [address] [place] [phone] Tiana Sibley 10/07/2025 12:30 PM EST PACE Home Care / [place] [facility] Visit [facility] [place] [facility] [address] [place] [phone] Danskimberly, [facility] 10/07/2025 5:30 PM EST PACE Home Care / [place] [facility] Visit [facility] [place] [facility] [address] [place] [phone] Tiana Sibley 10/08/2025 8:30 AM EST PACE Home Care / [place] [facility] Visit [facility] [place] [facility] [address] [place] [phone] Tiana Sibley 10/08/2025 12:30 PM EST PACE Home Care / [place] [facility] Visit [facility] [place] [facility] [address] [place] [phone] Tiana Sibley 10/08/2025 5:00 PM EST PACE Home Care / [place] [facility] Visit [facility] [place] [facility] [address] [place] [address] Tiana Sibley 10/09/2025 8:30 AM EST PACE Home Care / [place] [facility] [place] [facility] [address] [place] [phone] Brigida Hendricks 10/09/2025 12:30 PM EST PACE Home Care / [place] [facility] Visit [facility] [place] [facility] [address] [place] [phone] Brigida Hendricks 10/09/2025 5:30 PM EST PACE Home Care / [place] [facility] Visit [facility] [place] [facility] [address] [place] [phone] Briigda Hendricks 10/10/2025 8:00 AM EST PACE Home Care / [place] [facility] Visit [facility] [place] [facility] [address] [place] [phone] Melissa Raza 10/10/2025 12:30 PM EST PACE Home Care / [place] [facility] Visit [facility] [place] [facility] [address] [place] [phone] Melissa Raza 10/10/2025 5:30 PM EST PACE Home Care / [place] [facility] [place] [facility] [address] [place] [phone] Daksha Yates 10/11/2025 8:00 AM EST PACE Home Care / [place] [facility] [place] [facility] [address] [place] [phone] Tiana Sibley 10/11/2025 12:30 PM EST PACE Home Care / [place] [facility] [place] [facility] [address] [place] [phone] Lata Ford 10/11/2025 5:30 PM EST PACE Home Care / [place] [facility] Visit [facility] [place] [facility] [address] [place] [address] Trudy, Daksha 10/12/2025 8:00 AM EST PACE Home Care / [place] [facility] Visit [facility] [place] [facility] [address] [place] [address] Melissa Raza 10/12/2025 12:30 PM EST PACE Home Care / [place] [facility] Visit [facility] [place] [facility] [address] [place] [phone] Melissa Raza 10/12/2025 5:30 PM EST PACE Home Care / [place] Visit [facility] [place] [facility] [address] [place] [phone] Daksha Yates 10/13/2025 8:00 AM EST PACE Home Care / [place] [facility] Visit [facility] [place] [facility] [address] [place] [phone] Tiana Sibley 10/13/2025 12:30 PM EST PACE Home Care / [place] [facility] Visit [facility] [place] [facility] [address] [place] [phone] [facility]/13/[facility]25 5:30 PM EST PACE Home Care / [facility] [place] [facility] [address] [place] [phone] Danskimberly, Daksha 10/14/2025 8:30 AM EST PACE Home Care / [place] [facility] [place] [facility] [address] [place] [phone] Tiana Sibley 10/14/2025 12:30 PM EST PACE Home Care / [place] [facility] Visit [facility] [place] [facility] [address] [place] [phone] Daksha Yates 10/14/2025 5:30 PM EST PACE Home Care / [place] [facility] Visit [facility] [place] [facility] [address] [place] [address] Tiana Sibley 10/15/2025 8:30 AM EST PACE Home Care / [place] [facility] Visit [facility] [place] [facility] [address] [place] [address] Tiana Sibley 10/15/2025 12:30 PM EST PACE Home Care / [place] [facility] Visit [facility] [place] [facility] [address] [place] [address] Tiana Sibley 10/15/2025 5:30 PM EST PACE Home Care / [place] [facility] [place] [facility] [address] [place] [phone] Tiana Sibley 10/16/2025 8:00 AM EST PACE Home Care / [place] [facility] [place] [facility] [address] [place] [phone] Daksha Yates 10/16/2025 12:30 PM EST PACE Home Care / [place] [facility] [place] [facility] [address] [place] [phone] [facility]/16/2025 5:30 PM EST PACE Home Care / [place] [facility] [place] [facility] [address] [place] [phone] Dansereadaniel, Daksha 10/17/2025 8:00 AM EST PACE Home Care / [place] [facility] [place] [facility] [address] [place] [phone] Melissa Raza 10/17/2025 12:30 PM EST PACE Home Care / [place] [facility] Visit [facility] [place] [facility] [address] [place] [phone] Melissa Raza 10/17/2025 5:30 PM EST PACE Home Care / [place] [facility] Visit [facility] [place] [facility] [address] [place] [address] Daksha Yates 10/18/2025 8:00 AM EST PACE Home Care / [place] [facility] Visit [facility] [place] [facility] [address] [place] [address] Tiana Sibley 10/18/2025 12:30 PM EST PACE Home Care / [place] [facility] Visit [facility] [place] [facility] [address] [place] [phone] Lata Ford 10/18/2025 5:30 PM EST PACE Home Care / [place] [facility] Visit [facility] [place] [facility] [address] [place] [phone] Daksha Yates 10/19/2025 8:00 AM EST PACE Home Care / [place] Visit [facility] [place] [facility] [address] [place] [phone] Melissa Raza 10/19/2025 12:30 PM EST PACE Home Care / [place] [facility] Visit [facility] [place] [facility] [address] [place] [phone] Melissa Raza 10/19/2025 5:30 PM EST PACE Home Care / [facility] Visit [facility] [place] [facility] [address] [place] [phone] Daksha Yates 10/20/2025 8:00 AM EST PACE Home Care / [facility] [place] [facility] [address] [place] [phone] Tiana Sibley 10/20/2025 12:30 PM EST PACE Home Care / [place] [facility] [place] [facility] [address] [place] [phone] Daksha Yates 10/20/2025 5:30 PM EST PACE Home Care / [place] [facility] [place] [facility] [address] [place] [phone] Daksha Yates 10/21/2025 8:30 AM EST PACE Home Care / [place] [facility] [place] [facility] [address] [place] [address] Tiana Sibley 10/21/2025 12:30 PM EST PACE Home Care / [place] [facility] [place] [facility] [address] [place] [phone] Daksha Yates 10/21/2025 5:30 PM EST PACE Home Care / [place] [facility] [place] [facility] [address] [place] [phone] Tiana Sibley 10/22/2025 8:30 AM EST PACE Home Care / [place] [facility] [place] [facility] [address] [place] [phone] Tiana Sibley 10/22/2025 12:30 PM EST PACE Home Care / [place] [facility] [place] [facility] [address] [place] [phone] Tiana Sibley 10/22/2025 5:00 PM EST PACE Home Care / [place] [facility] [place] [facility] [address] [place] [phone] Tiana Sibley 10/23/2025 8:30 AM EST PACE Home Care / [facility] [facility] [place] [facility] [address] [place] [phone] Brigida Hendricks 10/23/2025 12:30 PM EST PACE Home Care / [facility] [place] [facility] [address] [place] [phone] Brigida Hendricks 10/23/2025 5:30 PM EST PACE Home Care / [facility] [place] [facility] [address] [place] [phone] Brigida Hendricks 10/24/2025 8:00 AM EST PACE Home Care / [facility] [place] [facility] [address] [place] [phone] Melissa Raza 10/24/2025 12:30 PM EST PACE Home Care / [facility] [place] [facility] [address] [place] [phone] Melissa Raza 10/24/2025 5:30 PM EST PACE Home Care / [facility] [place] [facility] [address] [place] [phone] Daksha Yates 10/25/2025 8:00 AM EST PACE Home Care / [place] [place] [facility] [address] [place] [phone] Tiana Sibley 10/25/2025 12:30 PM EST PACE Home Care / [place] [place] [facility] [address] [place] [phone] Lata Ford 10/25/2025 5:30 PM EST PACE Home Care / [facility] [place] [facility] [address] [place] [phone] Daksha Yates 10/26/2025 8:00 AM EST PACE Home Care / [facility] [place] [facility] [address] [place] [phone] Melissa Raza 10/26/2025 12:30 PM EST PACE Home Care / [place] [facility] [place] [facility] [address] [place] [phone] Ry Melissa 10/26/2025 5:30 PM EST PACE Home Care / [facility] [place] [facility] [address] [place] [address] Daksha Yates 10/27/2025 8:00 AM EST PACE Home Care / [facility] [place] [facility] [address] [place] [address] Tiana Sibley 10/27/2025 12:30 PM EST PACE Home Care / [facility] [place] [facility] [address] [place] [address] Daksha Yates 10/27/2025 5:30 PM EST PACE Home Care / [facility] [place] [facility] [address] [place] [address] Daksha Yates 10/28/2025 8:30 AM EST PACE Home Care / [facility] [place] [facility] [address] [place] [address] Tiana Sibley 10/28/2025 12:30 PM EST PACE Home Care / [facility] [place] [facility] [address] [place] [address] Daksha Yates 10/28/2025 5:30 PM EST PACE Home Care / [facility] [place] [facility] [address] [place] [address] Tiana Sibley 10/29/2025 8:30 AM EST PACE Home Care / [facility] [place] [facility] [address] [place] [address] iTana Sibley 10/29/2025 12:30 PM EST PACE Home Care / [facility] [place] [facility] [address] [place] [address] Tiana Sibley 10/29/2025 5:30 PM EST PACE Home Care / [facility] [place] [facility] [address] [place] [address] Tiana Sibley 10/30/2025 8:00 AM EST PACE Home Care / [facility] [place] [facility] [address] [place] [address] Daksha Yates 10/30/2025 12:30 PM EST PACE Home Care / [facility] [place] [facility] [address] [place] [phone] Daksha Yates 10/30/2025 5:30 PM EST PACE Home Care / [facility] [place] [facility] [address] [place] [phone] Daksha Yates 10/31/2025 8:00 AM EST PACE Home Care / [facility] [place] [facility] [address] [place] [phone] Melissa Raza 10/31/2025 12:30 PM EST PACE Home Care / [facility] [place] [facility] [address] [place] [phone] Melissa Raza 10/31/2025 5:30 PM EST PACE Home Care / [facility] [place] [facility] [address] [place] [phone] Daksha Yates 11/01/2025 8:00 AM EST PACE Home Care / [facility] [place] [facility] [address] [place] [phone] Tiana Sibley 11/01/2025 12:30 PM EST PACE Home Care / [facility] [place] [facility] [address] [place] [address] Lata Ford 11/01/2025 5:30 PM EST PACE Home Care / [facility] Visit [facility] [place] [facility] [address] [place] [address] Daksha Yates 11/02/2025 8:00 AM EST PACE Home Care / [facility] [place] [facility] [address] [place] [phone] Melissa Raza 11/02/2025 12:30 PM EST PACE Home Care / [facility] [address] [place] [phone] Melissa Raza 11/02/2025 5:30 PM EST PACE Home Care / [facility] [address] [place] [phone] [facility]/03/2025 8:00 AM EST PACE Home Care / [facility] [address] [place] [phone] Tiana Sibley 11/03/2025 12:30 PM EST PACE Home Care / [facility] [place] [facility] [address] [place] [phone] [facility] 11/03/2025 5:30 PM EST PACE Home Care / [facility] [place] [facility] [address] [place] [phone] [facility]iel[facility] 11/04/2025 8:30 AM EST P[facility] Home Care / [facility] [place] [facility] [address] [place] [phone] Tiana Sibley 11/04/2025 12:30 PM EST PACE Home Care / [facility] [place] [facility] [address] [place] [address] Daksha Yates 11/04/2025 5:30 PM EST PACE Home Care / [facility] [place] [facility] [address] [place] [address] Tiana Sibley 11/05/2025 8:30 AM EST PACE Home Care / [facility] [place] [facility] [address] [place] [phone] Tiana Sibley 11/05/2025 12:30 PM EST PACE Home Care / [facility] [place] [facility] [address] [place] [phone] Tiana Sibley 11/05/2025 5:00 PM EST PACE Home Care / [facility] [place] [facility] [address] [place] [phone] Tiana Sibley 11/06/2025 8:30 AM EST PACE Home Care / [facility] [place] [facility] [address] [place] [phone] Brigida Hendricks 11/06/2025 12:30 PM EST PACE Home Care / [facility] [place] [facility] [address] [place] [phone] Brigida Hendricks 11/06/2025 5:30 PM EST PACE Home Care / [facility] [place] [facility] [address] [place] [phone] Brigida Hendricks 11/07/2025 8:00 AM EST PACE Home Care / [facility] [place] [facility] [address] [place] [phone] Melissa Raza 11/07/2025 12:30 PM EST PACE Home Care / [facility] [place] [facility] [address] [place] [phone] Melissa Raza 11/07/2025 5:30 PM EST PACE Home Care / [facility] [place] [facility] [address] [place] [phone] Daksha Yates 11/08/2025 8:00 AM EST PACE Home Care / [facility] [place] [facility] [address] [place] [phone] Tiana Sibley 11/08/2025 12:30 PM EST PACE Home Care / [facility] [place] [facility] [address] [place] [phone] Lata Ford 11/08/2025 5:30 PM EST PACE Home Care / [facility] [place] [facility] [address] [place] [phone] Daksha Yates 11/09/2025 8:00 AM EST PACE Home Care / [facility] [place] [facility] [address] [place] [phone] Melissa Raza 11/09/2025 12:30 PM EST PACE Home Care / [facility] [place] [facility] [address] [place] [phone] Melissa Raza 11/09/2025 5:30 PM EST PACE Home Care / [facility] [place] [facility] [address] [place] [phone] Daksha Yates 11/10/2025 8:00 AM EST PACE Home Care / [facility] [place] [facility] [address] [place] [phone] Tiana Sibley 11/10/2025 12:30 PM EST PACE Home Care / [facility] [place] [facility] [address] [place] [address] Daksha Yates 11/10/2025 5:30 PM EST PACE Home Care / [facility] [place] [facility] [address] [place] [phone] Daksha Yates 11/11/2025 8:30 AM EST PACE Home Care / [facility] [place] [facility] [address] [place] [phone] Tiana Sibley 11/11/2025 12:30 PM EST PACE Home Care / [facility] [place] [facility] [address] [place] [phone] Daksha Yates 11/11/2025 5:30 PM EST PACE Home Care / [facility] [place] [facility] [address] [place] [phone] Tiana Sibley 11/12/2025 8:30 AM EST PACE Home Care / [facility] [place] [facility] [address] [place] [phone] Tiana Sibley 11/12/2025 12:30 PM EST PACE Home Care / [facility] [place] [facility] [address] [place] [phone] Tiana Sibley 11/12/2025 5:30 PM EST PACE Home Care / [facility] [place] [facility] [address] [place] [phone] Tiana Sibley 11/13/2025 8:00 AM EST PACE Home Care / [facility] [place] [facility] [address] [place] [phone] Daksha Yates 11/13/2025 12:30 PM EST PACE Home Care / [facility] [place] [facility] [address] [place] [phone] Daksha Yates 11/13/2025 5:30 PM EST PACE Home Care / [facility] [place] [facility] [address] [place] [phone] [facility] 11/14/2025 8:00 AM EST P[facility] Home [facility] / [facility] [place] [facility] [address] [place] [phone] Melissa Raza 11/14/2025 12:30 PM EST PACE Home Care / [facility] [place] [facility] [address] [place] [phone] Melissa Raza 11/14/2025 5:30 PM EST [facility] Home [facility] / [facility] [place] [facility] [address] [place] [phone] Trudy [facility] 11/15/2025 8:00 AM EST [facility] Home [facility] / [facility] [facility] [place] [facility] [place] [facility] [address] [place] [phone] Tiana Sibley 11/15/2025 12:30 PM EST [facility] Home [facility] / [facility] [facility] [place] [facility] [place] [facility] [address] [place] [phone] Lata Ford 11/15/2025 5:30 PM EST [facility] Home [facility] / [facility] [place] [facility] [place] [facility] [address] [place] [phone] [facility] 8:00 AM EST [facility] / [facility] [place] [facility] [place] [facility] [address] [place] [phone] Melissa Raza 11/16/2025 12:30 PM EST [facility] Home [facility] / [facility] [place] [facility] [address] [place] [phone] Melissa Raza 11/16/2025 5:30 PM EST [facility] Home [facility] / [facility] [place] [facility] [address] [place] [phone] Daksha Yates 11/17/2025 8:00 AM EST [facility] Home [facility] / [facility] [place] [facility] [address] [place] [phone] Tiana Sibley 11/17/2025 12:30 PM EST [facility] Home [facility] / [facility] [place] [facility] [place] [facility] [address] [place] [phone] Daksha Yates 11/17/2025 5:30 PM EST [facility] / [facility] [place] [facility] [address] [place] [phone] Daksha Yates 11/18/2025 8:30 AM EST [facility] / [facility] [facility] [place] [facility] [place] [facility] [address] [place] [phone] Tiana Sibley 11/18/2025 12:30 PM EST [facility] Home [facility] / [facility] [facility] [place] [facility] [address] [place] [phone] Daksha Yates 11/18/2025 5:30 PM EST [facility] Home [facility] / [facility] [facility] [place] [facility] [place] [facility] [address] [place] [phone] Tiana Sibley 11/19/2025 8:30 AM EST [facility] / [facility] [facility] [place] [facility] [address] [place] [phone] Tiana Sibley 11/19/2025 12:30 PM EST [facility] / [facility] [facility] [place] [facility] [place] [facility] [address] [place] [phone] Tiana Sibley 11/19/2025 5:00 PM EST [facility] Home [facility] / [facility] [facility] [place] [facility] [address] [place] [phone] Tiana Sibley 11/20/2025 8:30 AM EST [facility] Home [facility] / [facility] [facility] [place] [facility] [address] [place] [phone] Brigida Hendricks 11/20/2025 12:30 PM EST [facility] / [facility] [facility] [place] [facility] [place] [facility] [address] [place] [phone] Brigida Hendricks 11/20/2025 5:30 PM EST [facility] / [facility] [facility] [place] [facility] [place] [facility] [address] [place] [phone] Brigida Hendricks 11/21/2025 8:00 AM EST [facility] / [facility] [facility] [place] [facility] [place] [facility] [address] [place] [phone] Melissa Raza 11/21/2025 12:30 PM EST [facility] / [facility] [place] [facility] [address] [place] [phone] Melissa Raza 11/21/2025 5:30 PM EST [facility] / [facility] [place] [facility] [address] [place] [phone] Daksha Yates 11/22/2025 8:00 AM EST [facility] / [facility] [facility] [place] [facility] [place] [facility] [address] [place] [phone] Tiana Sibley 11/22/2025 12:30 PM EST [facility] Home [facility] / [facility] [address] [place] [phone] Lata Ford 11/22/2025 5:30 PM EST [facility] / [facility] [address] [place] [phone] Daksha Yates documented as of this encounter Visit Diagnoses Not on filedocumented in this encounter Care Teams Crime Scene Specialist Relationship Specialty Start Date End Date Reyna Zuniga NP [address] [place] [id number] PCP - General Family Medicine 11/06/24 documented as of this encounter
--- OUTSIDE RECORDS SUMMARY | 2025-09-24 04:18 | XMS_ITS | Encounter Summary ---
Author Organization [facility] Address [address] [place] [address] Care Team Providers Care Tandem Mill Sticker Name Role Phone Reyna Zuniga NP Primary Care Provider [phone] Reason for Referral * Consultation (Routine) - Authorized Specialty Diagnoses / Procedures Referred By Contac t Referred To Contact Correction Facility Diagnoses Lewy body dementia, unspecified dementia severity, unspecified whether behavioral, psychotic, or mood disturbance or anxiety (CMS/HCC V24, CMS/HCC V28) Recurrent falls Frailty Ilsa Frias MD [address] [address] Phone: tel: fax:[phone] [facility] [address] [place] [address] Referral ID Status Reason Start Date Expiration Date Visits Requested Visits Authorized [id number] Authorized Co-Managemen t of Problem 5 09/21/2026 1 1 Encounter Details Date Type Department Care Team (Latest Contact Info) Description 09/21/2025 [facility] [address] [place] [address] Liberty Burns RN Recurrent falls (Primary Dx); Lewy body dementia, unspecified dementia severity, unspecified whether behavioral, psychotic, or mood disturbance or anxiety (CMS/HCC V24, CMS/HCC V28); Frailty Social History Tobacco Use Types Packs/Day Years [...] [facility] [address] [place] [address] Asmita Matias 09/26/2025 1:30 PM EST PACE Assessment [facility] Physical Therapy [address] [place] [phone] Fede Rock PT 09/26/2025 5:00 PM EST PACE Home Care / PACE Home Visit [facility] [address] [place] [phone] Daksha Yates 09/27/2025 8:00 AM EST PACE Home Care / PACE Home Visit [facility] [address] [place] [phone] Tiana Sibley 09/27/2025 12:30 PM EST PACE Home Care / PACE Home Visit [facility] [address] [place] [phone] Lata Ford 09/27/2025 5:30 PM EST PACE Home Care / [facility] Visit [facility] [address] [place] [phone] Daksha Yates 09/28/2025 8:45 AM EST Clinical Support [facility] [address] [place] [address] Federica Quintana LPN 09/28/2025 9:00 AM EST PACE Home Care / [facility] [address] [place] [address] Melissa Raza 09/28/2025 12:30 PM EST PACE Home Care / P[facility] Home Visit [facility] [address] [place] [address] Melissa Raza 09/28/2025 5:30 PM EST PACE Home Care / PACE Home Visit [facility] [address] [place] [address] Daksha Yates 09/30/2025 8:30 AM EST PACE Home Care / [facility] Home Visit [facility] [address] [place] [address] Tiana Sibley 09/30/2025 9:00 AM EST Clinical Support [facility] [address] [place] [phone] Federica Quintana LPN 09/30/2025 12:30 PM EST PACE Home Care / [facility] Home Visit [facility] [address] [place] [phone] Lata Ford 09/30/2025 5:30 PM EST PACE Home Care / PACE Home Visit [facility] [address] [place] [phone] Tiana Sibley 10/01/2025 8:30 AM EST PACE Home Care / [facility] Home Visit [facility] [place] [facility] [address] [place] [phone] Tiana Sibley 10/01/2025 12:30 PM EST PACE Home Care / [facility] Visit [facility] [address] [place] [address] Tiana Sibley 10/01/2025 5:30 PM EST PACE Home Care / [facility] Visit [facility] [place] [facility] [address] [place] [address] Tiana Sibley 10/02/2025 8:00 AM EST PACE Home Care / PACE Home Visit [facility] [address] [place] [address] Daksha Yates 10/02/2025 12:30 PM EST PACE Home Care / PACE Home Visit [facility] [address] [place] [address] Daksha Yates 10/02/2025 5:30 PM EST PACE Home Care / PACE Home Visit [facility] [address] [place] [address] Daksha Yates 10/03/2025 8:00 AM EST PACE Home Care / PACE Home Visit [facility] [address] [place] [address] Melissa Raza 10/03/2025 8:45 AM EST Clinical Support [facility] [address] [place] [phone] Federica Quintana LPN 10/03/2025 12:30 PM EST PACE Home Care / PACE Home Visit [facility] [address] [place] [address] Melissa Raza 10/03/2025 5:30 PM EST PACE Home Care / PACE Home Visit [facility] [address] [place] [phone] Daksha Yates 10/04/2025 8:00 AM EST PACE Home Care / PACE Home Visit [facility] [address] [place] [address] Tiana Sibley 10/04/2025 12:30 PM EST PACE Home Care / PACE Home Visit [facility] [address] [place] [address] Lata Ford 10/04/2025 5:30 PM EST PACE Home Care / PACE Home Visit [facility] [address] [place] [address] Daksha Yates 10/05/2025 8:00 AM EST PACE Home Care / PACE Home Visit [facility] [address] [place] [address] Melissa Raza 10/05/2025 12:30 PM EST PACE Home Care / PACE Home Visit [facility] [address] [place] [address] Melissa Raza 10/05/2025 5:30 PM EST PACE Home Care / PACE Home Visit [facility] [address] [place] [phone] Daksha Yates 10/06/2025 8:00 AM EST PACE Home Care / PACE Home Visit [facility] [address] [place] [phone] Tiana Sibley 10/06/2025 12:30 PM EST PACE Home Care / PACE Home Visit [facility] [address] [place] [phone] [facility] 10/06/2025 5:30 PM EST PACE Home Care / [facility] [address] [place] [phone] [facility] 10/07/2025 8:30 AM EST PACE Home Care / [facility] Visit [facility] [address] [place] [phone] Tiana Sibley 10/07/2025 12:30 PM EST PACE Home Care / [facility] Visit [facility] [place] [facility] [address] [place] [address] Daksha Yates 10/07/2025 5:30 PM EST PACE Home Care / [facility] Home Visit [facility] [address] [place] [address] Tiana Sibley 10/08/2025 8:30 AM EST PACE Home Care / [facility] Visit [facility] [address] [place] [address] Tiana Sibley 10/08/2025 12:30 PM EST PACE Home Care / [facility] Visit [facility] [place] [facility] [address] [place] [phone] Tiana Sibley 10/08/2025 5:00 PM EST PACE Home Care / [facility] Visit [facility] [place] [facility] [address] [place] [phone] Tiana Sibley 10/09/2025 8:30 AM EST PACE Home Care / [facility] [address] [place] [phone] Brigida Hendricks 10/09/2025 12:30 PM EST PACE Home Care / [facility] Visit [facility] [address] [place] [phone] Brigida Hendricks 10/09/2025 5:30 PM EST PACE Home Care / [facility] Visit [facility] [address] [place] [phone] Brigida Hendricks 10/10/2025 8:00 AM EST PACE Home Care / [facility] Visit [facility] [place] [facility] [address] [place] [phone] Melissa Raza 10/10/2025 12:30 PM EST PACE Home Care / [facility] Visit [facility] [address] [place] [address] Melissa Raza 10/10/2025 5:30 PM EST PACE Home Care / [facility] Visit [facility] [address] [place] [address] Daksha Yates 10/11/2025 8:00 AM EST PACE Home Care / [facility] Visit [facility] [address] [place] [address] Tiana Sibley 10/11/2025 12:30 PM EST PACE Home Care / P[facility] Visit [facility] [address] [place] [phone] Lata Ford 10/11/2025 5:30 PM EST PACE Home Care / P[facility] Visit [facility] [address] [place] [phone] Daksha Yates 10/12/2025 8:00 AM EST PACE Home Care / [facility] Visit [facility] [address] [place] [phone] Melissa Raza 10/12/2025 12:30 PM EST PACE Home Care / P[facility] Visit [facility] [address] [place] [phone] Melissa Raza 10/12/2025 5:30 PM EST PACE Home Care / P[facility] Visit [facility] [address] [place] [phone] Daksha Yates 10/13/2025 8:00 AM EST PACE Home Care / [facility] Visit [facility] [address] [place] [phone] Tiana Sibley 10/13/2025 12:30 PM EST PACE Home Care / [facility] Visit [facility] [address] [place] [phone] Daksha Yates 10/13/2025 5:30 PM EST PACE Home Care / [facility] Visit [facility] [address] [place] [phone] Daksha Yates 10/14/2025 8:30 AM EST PACE Home Care / [facility] Visit [facility] [address] [place] [phone] Tiana iSbley 10/14/2025 12:30 PM EST PACE Home Care / [facility] Visit [facility] [address] [place] [phone] Daksha Yates 10/14/2025 5:30 PM EST PACE Home Care / [facility] Visit [facility] [address] [place] [phone] Tiana Sibley 10/15/2025 8:30 AM EST PACE Home Care / [facility] Visit [facility] [address] [place] [phone] Tiana Sibley 10/15/2025 12:30 PM EST PACE Home Care / P[facility] Visit [facility] [address] [place] [phone] Tiana Sibley 10/15/2025 5:30 PM EST PACE Home Care / [facility] Visit [facility] [address] [place] [phone] Tiana Sibley 10/16/2025 8:00 AM EST PACE Home Care / [facility] Visit [facility] [address] [place] [phone] Daksha Yates 10/16/2025 12:30 PM EST PACE Home Care / P[facility] Visit [facility] [address] [place] [phone] Daksha Yates 10/16/2025 5:30 PM EST PACE Home Care / [facility] Visit [facility] [address] [place] [phone] Daksha Yates 10/17/2025 8:00 AM EST PACE Home Care / [facility] Visit [facility] [address] [place] [phone] Melissa Raza 10/17/2025 12:30 PM EST PACE Home Care / PACE [facility] Visit [facility] [address] [place] [phone] Melissa Raza 10/17/2025 5:30 PM EST PACE Home Care / P[facility] Visit [facility] [address] [place] [phone] [facility] 10/18/2025 8:00 AM EST PACE Home Care / P[facility] Visit [facility] [address] [place] [phone] Tiana Sibley 10/18/2025 12:30 PM EST PACE Home Care / P[facility] Visit [facility] [address] [place] [phone] Lata Ford 10/18/2025 5:30 PM EST PACE Home Care / PACE [facility] Visit [facility] [address] [place] [phone] Daksha Yates 10/19/2025 8:00 AM EST PACE Home Care / P[facility] Visit [facility] [address] [place] [phone] Melissa Raza 10/19/2025 12:30 PM EST PACE Home Care / P[facility] Visit [facility] [address] [place] [address] Melissa Raza 10/19/2025 5:30 PM EST PACE Home Care / PACE [facility] Visit [facility] [address] [place] [address] Daksha Yates 10/20/2025 8:00 AM EST PACE Home Care / P[facility] Visit [facility] [address] [place] [phone] Tiana Sibley 10/20/2025 12:30 PM EST PACE Home Care / [facility] [address] [place] [phone] Daksha Yates 10/20/2025 5:30 PM EST PACE Home Care / [facility] [address] [place] [phone] Daksha Yates 10/21/2025 8:30 AM EST PACE Home Care / [facility] Visit [facility] [address] [place] [phone] Tiana Sibley 10/21/2025 12:30 PM EST PACE Home Care / [facility] Visit [facility] [address] [place] [address] Daksha Yates 10/21/2025 5:30 PM EST PACE Home Care / [facility] [address] [place] [phone] Tiana Sibley 10/22/2025 8:30 AM EST PACE Home Care / [facility] [address] [place] [phone] Tiana Sibley 10/22/2025 12:30 PM EST PACE Home Care / [facility] [address] [place] [address] Tiana Sibley 10/22/2025 5:00 PM EST PACE Home Care / [facility] Visit [facility] [address] [place] [address] Tiana Sibley 10/23/2025 8:30 AM EST PACE Home Care / [facility] Visit [facility] [address] [place] [phone] Brigida Hendricks 10/23/2025 12:30 PM EST PACE Home Care / [facility] [address] [place] [phone] Brigida Hendricks 10/23/2025 5:30 PM EST PACE Home Care / [facility] [address] [place] [phone] Brigida Hendricks 10/24/2025 8:00 AM EST PACE Home Care / [facility] [address] [place] [phone] Melissa Raza 10/24/2025 12:30 PM EST PACE Home Care / [facility] [address] [place] [phone] Melissa Raza 10/24/2025 5:30 PM EST PACE Home Care / [facility] [address] [place] [phone] Daksha Yates 10/25/2025 8:00 AM EST PACE Home Care / [facility] [address] [place] [address] Tiana Sibley 10/25/2025 12:30 PM EST PACE Home Care / [facility] [address] [place] [phone] Lata Ford 10/25/2025 5:30 PM EST PACE Home Care / [facility] [address] [place] [phone] Daksha Yates 10/26/2025 8:00 AM EST PACE Home Care / [facility] [address] [place] [phone] Melissa Raza 10/26/2025 12:30 PM EST PACE Home Care / [facility] [address] [place] [phone] Melissa Raza 10/26/2025 5:30 PM EST PACE Home Care / [facility] [address] [place] [phone] Daksha Yates 10/27/2025 8:00 AM EST PACE Home Care / [facility] [address] [place] [phone] Tiana Sibley 10/27/2025 12:30 PM EST PACE Home Care / [facility] Visit [facility] [address] [place] [phone] Daksha Yates 10/27/2025 5:30 PM EST PACE Home Care / [facility] [address] [place] [phone] Daksha Yates 10/28/2025 8:30 AM EST PACE Home Care / [facility] [address] [place] [address] Tiana Sibley 10/28/2025 12:30 PM EST PACE Home Care / P[facility] Visit [facility] [address] [place] [address] Daksha Yates 10/28/2025 5:30 PM EST PACE Home Care / PACE Home Visit [facility] [address] [place] [address] Tiana Sibley 10/29/2025 8:30 AM EST PACE Home Care / PACE Home Visit [facility] [address] [place] [address] Tiana Sibley 10/29/2025 12:30 PM EST PACE Home Care / PACE Home Visit [facility] [address] [place] [address] Tiana Sibley 10/29/2025 5:30 PM EST PACE Home Care / PACE Home Visit [facility] [address] [place] [phone] Tiana Sibley 10/30/2025 8:00 AM EST PACE Home Care / PACE Home Visit [facility] [address] [place] [phone] Daksha Yates 10/30/2025 12:30 PM EST PACE Home Care / PACE Home Visit [facility] [address] [place] [phone] Daksha Yates 10/30/2025 5:30 PM EST PACE Home Care / [facility] [address] [place] [phone] Daksha Yates 10/31/2025 8:00 AM EST PACE Home Care / [facility] [address] [place] [address] Melissa Raza 10/31/2025 12:30 PM EST PACE Home Care / [facility] [address] [place] [address] Melissa Raza 10/31/2025 5:30 PM EST PACE Home Care / [facility] [address] [place] [phone] Daksha Yates 11/01/2025 8:00 AM EST PACE Home Care / [facility] [address] [place] [phone] Tiana Sibley 11/01/2025 12:30 PM EST PACE Home Care / [facility] [address] [place] [phone] Lata Ford 11/01/2025 5:30 PM EST PACE Home Care / [facility] [address] [place] [phone] Daksha Yates 11/02/2025 8:00 AM EST PACE Home Care / [facility] [address] [place] [phone] Melissa Raza 11/02/2025 12:30 PM EST PACE Home Care / [facility] [address] [place] [phone] Melissa Raza 11/02/2025 5:30 PM EST PACE Home Care / [facility] Visit [facility] [address] [place] [phone] Daksha Yates 11/03/2025 8:00 AM EST PACE Home Care / [facility] [address] [place] [address] Tiana Sibley 11/03/2025 12:30 PM EST PACE Home Care / [facility] [address] [place] [address] Daksha Yates 11/03/2025 5:30 PM EST PACE Home Care / [facility] [address] [place] [phone] Daksha Yates 11/04/2025 8:30 AM EST PACE Home Care / [facility] [address] [place] [phone] Tiana Sibley 11/04/2025 12:30 PM EST PACE Home Care / [facility] [address] [place] [phone] Daksha Yates 11/04/2025 5:30 PM EST PACE Home Care / [facility] [address] [place] [phone] Tiana Sibley 11/05/2025 8:30 AM EST PACE Home Care / [facility] [address] [place] [phone] Tiana Sibley 11/05/2025 12:30 PM EST PACE Home Care / [facility] [address] [place] [phone] Tiana Sibley 11/05/2025 5:00 PM EST PACE Home Care / [facility] [address] [place] [phone] Tiana Sibley 11/06/2025 8:30 AM EST PACE Home Care / [facility] [address] [place] [phone] Brigida Hendricks 11/06/2025 12:30 PM EST PACE Home Care / [facility] [address] [place] [phone] Brigida Hendricks 11/06/2025 5:30 PM EST PACE Home Care / [facility] [address] [place] [phone] Brigida Hendricks 11/07/2025 8:00 AM EST PACE Home Care / [facility] [address] [place] [phone] Melissa Raza 11/07/2025 12:30 PM EST PACE Home Care / [facility] [address] [place] [phone] Melissa Raza 11/07/2025 5:30 PM EST PACE Home Care / [facility] [address] [place] [phone] Daksha Yates 11/08/2025 8:00 AM EST PACE Home Care / [facility] [address] [place] [phone] Tiana Sibley 11/08/2025 12:30 PM EST PACE Home Care / [facility] [address] [place] [phone] Lata Ford 11/08/2025 5:30 PM EST PACE Home Care / [facility] [address] [place] [phone] Daksha Yates 11/09/2025 8:00 AM EST PACE Home Care / [facility] [address] [place] [address] Melissa Raza 11/09/2025 12:30 PM EST PACE Home Care / [facility] [address] [place] [address] Melissa Raza 11/09/2025 5:30 PM EST PACE Home Care / [facility] [address] [place] [phone] Daksha Yates 11/10/2025 8:00 AM EST PACE Home Care / [facility] [address] [place] [phone] Tiana Sibley 11/10/2025 12:30 PM EST PACE Home Care / [facility] [address] [place] [phone] [facility] 11/10/2025 5:30 PM EST PACE Home Care / [facility] [address] [place] [phone] [facility] 11/11/2025 8:30 AM EST PACE Home Care / [facility] [address] [place] [phone] Tiana Sibley 11/11/2025 12:30 PM EST PACE Home Care / [facility] [address] [place] [phone] Daksha Yates 11/11/2025 5:30 PM EST PACE Home Care / [facility] [address] [place] [phone] Tiana Sibley 11/12/2025 8:30 AM EST [facility] [address] [place] [phone] Tiana Sibley 11/12/2025 12:30 PM EST [facility] / [facility] [address] [place] [phone] Tiana Sibley 11/12/2025 5:30 PM EST [facility] / [facility] [address] [place] [phone] Tiana Sibley 11/13/2025 8:00 AM EST [facility] / [facility] [place] [facility] [address] [place] [phone] Daksha Yates 11/13/2025 12:30 PM EST [facility] / [facility] [address] [place] [phone] Daksha Yates 11/13/2025 5:30 PM EST [facility] / [facility] [address] [place] [phone] Daksha Yates 11/14/2025 8:00 AM EST [facility] / [facility] [address] [place] [phone] Melissa Raza 11/14/2025 12:30 PM EST [facility] / [facility] [address] [place] [phone] Melissa Raza 11/14/2025 5:30 PM EST [facility] / [facility] [address] [place] [phone] Daksha Yates 11/15/2025 8:00 AM EST [facility] / [facility] [address] [place] [phone] Tiana Sibley 11/15/2025 12:30 PM EST [facility] / [facility] [address] [place] [phone] Lata Ford 11/15/2025 5:30 PM EST [facility] / [facility] [address] [place] [phone] Daksha Yates 11/16/2025 8:00 AM EST [facility] / [facility] [address] [place] [phone] Melissa Raza 11/16/2025 12:30 PM EST [facility] / [facility] [address] [place] [phone] Melissa Raza 11/16/2025 5:30 PM EST [facility] / [facility] [place] [facility] [address] [place] [phone] Daksha Yates 11/17/2025 8:00 AM EST [facility] / [facility] [place] [facility] [address] [place] [phone] Tiana Sibley 11/17/2025 12:30 PM EST [facility] / [facility] [place] [facility] [address] [place] [phone] Daksha Yates 11/17/2025 5:30 PM EST [facility] / [facility] [address] [place] [phone] Daksha Yates 11/18/2025 8:30 AM EST [facility] / [facility] [place] [facility] [address] [place] [phone] Tiana Sibley 11/18/2025 12:30 PM EST [facility] / [facility] [address] [place] [phone] Daksha Yates 11/18/2025 5:30 PM EST [facility] / [facility] [place] [facility] [address] [place] [phone] Tiana Sibley 11/19/2025 8:30 AM EST [facility] / [facility] [address] [place] [phone] Tiana Sibley 11/19/2025 12:30 PM EST [facility] / [facility] [address] [place] [phone] Tiana Sibley 11/19/2025 5:00 PM EST [facility] / [facility] [place] [facility] [address] [place] [phone] Tiana Sibley 11/20/2025 8:30 AM EST [facility] / [facility] [address] [place] [phone] Brigida Hendricks 11/20/2025 12:30 PM EST [facility] / [facility] [place] [facility] [address] [place] [phone] Brigida Hendricks 11/20/2025 5:30 PM EST [facility] / [facility] [address] [place] [phone] Brigida Hendricks 11/21/2025 8:00 AM EST [facility] / [facility] [address] [place] [phone] Melissa Raza 11/21/2025 12:30 PM EST [facility] / [facility] [address] [place] [phone] Melissa Raza 11/21/2025 5:30 PM EST [facility] / [facility] [address] [place] [phone] Daksha Yates 11/22/2025 8:00 AM EST [facility] / [facility] [address] [place] [phone] Tiana Sibley 11/22/2025 12:30 PM EST [facility] / [facility] [address] [place] [phone] Lata Ford 11/22/2025 5:30 PM EST [facility] / [facility] [address] [place] [phone] Daksha Yates Scheduled Referrals Name Type Priority Associated Diagnoses Orde r Schedule PACE Admisssion Outpatient Referral Routine Lewy body dementia, unspecified dementia severity, unspecified whether behavioral, psychotic, or mood disturbance or anxiety (CMS/HCC V24, CMS/[facility] V28) Recurrent falls Frailty Ordered: 09/21/2025 documented as of this encounter Visit Diagnoses Diagnosis Recurrent falls- Primary Lewy body dementia, unspecified dementia severity, unspecified whether behavioral, psychotic, or mood disturbance or anxiety (CMS/HCC V24, CMS/HCC V28) Frailty Senility without mention of psychosis documented in this encounter Additional Health Concerns Assessment Noted Time PHQ-9 Depression Total Score: 3 03/25/20 25 11:12 AM EDT documented as of this encounter Care Teams [employer] Relationship Specialty Start Date End Date Reyna Zuniga NP [address] [facility] [address] [place] [address] PCP - General Family Medicine 11/06/24 documented as of this encounter
--- OUTSIDE RECORDS SUMMARY | 2025-09-24 04:19 | XMS_ITS | Encounter Summary ---
Author Organization [facility] Address [address] [place] [address] Care Team Providers Care Hospice Chaplain Name Role Phone Reyna Zuniga MEDICAL EDUCATOR Primary Care Provider [phone] Reason for Visit * Reason Onset Date Comments Clinical 04/03/2025 Par called to re port he does not want the shingles vaccine. IDT to f/u as needed. Encounter Details Date Type Department Care Team (Late st Contact Info) Description 04/03/[address] [place] On-Call [address] [facility] [address] [place] [phone] Reyna Zuniga, GIOVANNA [address] [id number] Social History Tobacco Use Types Packs/Day Years [...] [place] [facility] [address] [place] [phone] Asmita Matias 09/26/2025 1:30 PM EST P[facility] Assessment [facility] [address] [place] [phone] Fede Rock, MARIA T 09/26/2025 5:00 PM EST PACE Home Care / [facility] Home Visit [facility] [address] [place] [phone] Daksha Yates 09/27/2025 8:00 AM EST PACE Home Care / PACE Home Visit [facility] [address] [place] [phone] Tiana Sibley 09/27/2025 12:30 PM EST PACE Home Care / [facility] Home Visit [facility] [address] [place] [phone] Lata Ford 09/27/2025 5:30 PM EST PACE Home Care / P[facility] Home Visit [facility] [address] [place] [phone] Daksha Yates 09/28/2025 8:45 AM EST Clinical Support [facility] [address] [place] [phone] Federica Quintana LPN 09/28/2025 9:00 AM EST P[facility] Home Care / [facility] Home Visit [facility] [address] [place] [phone] Melissa Raza 09/28/2025 12:30 PM EST PACE Home Care / [facility] Home Visit [facility] [address] [place] [phone] Melissa Raza 09/28/2025 5:30 PM EST PACE Home Care / [facility] Home Visit [facility] [address] [place] [address] Daksha Yates 09/30/2025 8:30 AM EST PACE Home Care / [facility] Home Visit [facility] [place] [facility] [address] [place] [address] Tiana Sibley 09/30/2025 9:00 AM EST Clinical Support [facility] [address] [place] [address] Federica Quintana LPN 09/30/2025 12:30 PM EST PACE Home Care / PACE Home Visit [facility] [address] [place] [address] Lata Ford 09/30/2025 5:30 PM EST PACE Home Care / PACE Home Visit [facility] [address] [place] [phone] Tiana Sibley 10/01/2025 8:30 AM EST PACE Home Care / PACE Home Visit [facility] [address] [place] [phone] Tiana Sibley 10/01/2025 12:30 PM EST PACE Home Care / PACE Home Visit [facility] [address] [place] [address] Tiana Sibley 10/01/2025 5:30 PM EST PACE Home Care / [facility] Visit [facility] [place] [facility] [address] [place] [phone] Tiana Sibley 10/02/2025 8:00 AM EST PACE Home Care / [facility] Home Visit [facility] [address] [place] [address] Daksha Yates 10/02/2025 12:30 PM EST PACE Home Care / P[facility] Home Visit [facility] [place] [facility] [address] [place] [address] Daksha Yates 10/02/2025 5:30 PM EST PACE Home Care / [facility] Home Visit [facility] [address] [place] [phone] Daksha Yates 10/03/2025 8:00 AM EST PACE Home Care / [facility] Home Visit [facility] [address] [place] [address] Melissa Raza 10/03/2025 8:45 AM EST Clinical Support [facility] [place] [facility] [address] [place] [address] Federica Quintana LPN 10/03/2025 12:30 PM EST PACE Home Care / [facility] Visit [facility] [place] [facility] [address] [place] [phone] Melissa Raza 10/03/2025 5:30 PM EST PACE Home Care / P[facility] Home Visit [facility] [place] [facility] [address] [place] [phone] Daksha Yates 10/04/2025 8:00 AM EST PACE Home Care / [facility] Home Visit [facility] [place] [facility] [address] [place] [address] Tiana Sibley 10/04/2025 12:30 PM EST PACE Home Care / [facility] Visit [facility] [place] [facility] [address] [place] [phone] Lata Ford 10/04/2025 5:30 PM EST PACE Home Care / [facility] Visit [facility] [place] [facility] [address] [place] [phone] Daksha Yates 10/05/2025 8:00 AM EST PACE Home Care / [facility] Visit [facility] [address] [place] [address] Melissa Raza 10/05/2025 12:30 PM EST PACE Home Care / [facility] Visit [facility] [place] [facility] [address] [place] [address] Melissa Raza 10/05/2025 5:30 PM EST PACE Home Care / [facility] Visit [facility] [place] [facility] [address] [place] [phone] Daksha Yates 10/06/2025 8:00 AM EST PACE Home Care / [facility] Visit [facility] [place] [facility] [address] [place] [phone] Tiana Sibley 10/06/2025 12:30 PM EST PACE Home Care / [facility] Visit [facility] [place] [facility] [address] [place] [phone] Trudy [facility] 10/06/2025 5:30 PM EST PACE Home Care / [facility] Visit [facility] [place] [facility] [address] [place] [phone] Daksha Yates 10/07/2025 8:30 AM EST PACE Home Care / [facility] Visit [facility] [place] [facility] [address] [place] [phone] Tiana Sibley 10/07/2025 12:30 PM EST PACE Home Care / [facility] Visit [facility] [place] [facility] [address] [place] [phone] Daksha Yates 10/07/2025 5:30 PM EST PACE Home Care / [facility] Visit [facility] [place] [facility] [address] [place] [phone] Tiana Sibley 10/08/2025 8:30 AM EST PACE Home Care / [facility] Visit [facility] [place] [facility] [address] [place] [phone] Tiana Sibley 10/08/2025 12:30 PM EST PACE Home Care / [facility] Visit [facility] [place] [facility] [address] [place] [phone] Tiana Sibley 10/08/2025 5:00 PM EST PACE Home Care / [facility] Visit [facility] [place] [facility] [address] [place] [phone] Tiana Sibley 10/09/2025 8:30 AM EST PACE Home Care / [facility] Visit [facility] [place] [facility] [address] [place] [phone] Brigida Hendricks 10/09/2025 12:30 PM EST PACE Home Care / [facility] Visit [facility] [address] [place] [phone] Brigida Hendricks 10/09/2025 5:30 PM EST PACE Home Care / [facility] Visit [facility] [place] [facility] [address] [place] [phone] Brigida Hendricks 10/10/2025 8:00 AM EST PACE Home Care / [facility] Visit [facility] [place] [facility] [address] [place] [phone] Melissa Raza 10/10/2025 12:30 PM EST PACE Home Care / [facility] Visit [facility] [place] [facility] [address] [place] [phone] Melissa Raza 10/10/2025 5:30 PM EST PACE Home Care / [facility] Visit [facility] [place] [facility] [address] [place] [phone] Daksha Yates 10/11/2025 8:00 AM EST PACE Home Care / [facility] Visit [facility] [place] [facility] [address] [place] [phone] Tiana Sibley 10/11/2025 12:30 PM EST PACE Home Care / [facility] Visit [facility] [place] [facility] [address] [place] [phone] Lata Ford 10/11/2025 5:30 PM EST PACE Home Care / [facility] Visit [facility] [place] [facility] [address] [place] [phone] Daksha Yates 10/12/2025 8:00 AM EST PACE Home Care / [facility] Visit [facility] [place] [facility] [address] [place] [phone] Melissa Raza 10/12/2025 12:30 PM EST PACE Home Care / [facility] Visit [facility] [place] [facility] [address] [place] [phone] Melissa Raza 10/12/2025 5:30 PM EST PACE Home Care / [facility] Visit [facility] [place] [facility] [address] [place] [phone] Daksha Yates 10/13/2025 8:00 AM EST PACE Home Care / [facility] Visit [facility] [place] [facility] [address] [place] [phone] Tiana Sibley 10/13/2025 12:30 PM EST PACE Home Care / [facility] Visit [facility] [place] [facility] [address] [place] [phone] Daksha Yates 10/13/2025 5:30 PM EST PACE Home Care / [facility] Visit [facility] [place] [facility] [address] [place] [phone] Daksha Yates 10/14/2025 8:30 AM EST PACE Home Care / [facility] Visit [facility] [place] [facility] [address] [place] [address] Tiana Sibley 10/14/2025 12:30 PM EST PACE Home Care / [facility] Visit [facility] [place] [facility] [address] [place] [address] Daksha Yates 10/14/2025 5:30 PM EST PACE Home Care / [facility] Visit [facility] [place] [facility] [address] [place] [address] Tiana Sibley 10/15/2025 8:30 AM EST PACE Home Care / [facility] Visit [facility] [place] [facility] [address] [place] [address] Tiana Sibley 10/15/2025 12:30 PM EST PACE Home Care / [facility] Visit [facility] [place] [facility] [address] [place] [address] Tiana Sibley 10/15/2025 5:30 PM EST PACE Home Care / [facility] Visit [facility] [place] [facility] [address] [place] [address] Tiana Sibley 10/16/2025 8:00 AM EST PACE Home Care / [facility] Visit [facility] [place] [facility] [address] [place] [address] Daksha Yates 10/16/2025 12:30 PM EST PACE Home Care / [facility] Visit [facility] [place] [facility] [address] [place] [address] Daksha Yates 10/16/2025 5:30 PM EST PACE Home Care / [facility] Visit [facility] [place] [facility] [address] [place] [address] Daksha Yates 10/17/2025 8:00 AM EST PACE Home Care / [facility] Visit [facility] [address] [place] [phone] Melissa Raza 10/17/2025 12:30 PM EST PACE Home Care / [facility] Visit [facility] [address] [place] [phone] Melissa Raza 10/17/2025 5:30 PM EST PACE Home Care / [facility] Visit [facility] [address] [place] [phone] Daksha Yates 10/18/2025 8:00 AM EST PACE Home Care / [facility] Visit [facility] [address] [place] [phone] Tiana Sibley 10/18/2025 12:30 PM EST PACE Home Care / [facility] Visit [facility] [place] [facility] [address] [place] [phone] Lata Ford 10/18/2025 5:30 PM EST PACE Home Care / [facility] Visit [facility] [address] [place] [phone] Daksha Yates 10/19/2025 8:00 AM EST PACE Home Care / [facility] Visit [facility] [address] [place] [phone] Melissa Raza 10/19/2025 12:30 PM EST PACE Home Care / [facility] Visit [facility] [address] [place] [phone] Melissa Raza 10/19/2025 5:30 PM EST PACE Home Care / [facility] Visit [facility] [address] [place] [address] Daksha Yates 10/20/2025 8:00 AM EST PACE Home Care / P[facility] Home Visit [facility] [place] [facility] [address] [place] [address] Tiana Sibley 10/20/2025 12:30 PM EST PACE Home Care / [facility] Visit [facility] [address] [place] [phone] Trudy, [facility] 10/20/2025 5:30 PM EST PACE Home Care / [facility] Visit [facility] [address] [place] [phone] Daksha Yates 10/21/2025 8:30 AM EST PACE Home Care / P[facility] Home Visit [facility] [place] [facility] [address] [place] [address] Tiana Sibley 10/21/2025 12:30 PM EST PACE Home Care / [facility] Home Visit [facility] [place] [facility] [address] [place] [phone] KeshaDaksha harris 10/21/2025 5:30 PM EST PACE Home Care / [facility] [address] [place] [phone] Tiana Sibley 10/22/2025 8:30 AM EST PACE Home Care / [facility] [address] [place] [phone] Tiana Sibley 10/22/2025 12:30 PM EST PACE Home Care / [facility] Visit [facility] [address] [place] [phone] Tiana Sibley 10/22/2025 5:00 PM EST PACE Home Care / [facility] Visit [facility] [address] [place] [address] Tiana Sibley 10/23/2025 8:30 AM EST PACE Home Care / [facility] Visit [facility] [address] [place] [phone] Brigida Hendricks 10/23/2025 12:30 PM EST PACE Home Care / [facility] Visit [facility] [address] [place] [phone] Brigida Hendricks 10/23/2025 5:30 PM EST PACE Home Care / [facility] [address] [place] [phone] Brigida Hendricks 10/24/2025 8:00 AM EST PACE Home Care / [facility] [address] [place] [phone] Melissa Raza 10/24/2025 12:30 PM EST PACE Home Care / [facility] [address] [place] [phone] Melissa Raza 10/24/2025 5:30 PM EST PACE Home Care / [facility] [address] [place] [phone] Daksha Yates 10/25/2025 8:00 AM EST PACE Home Care / [facility] [address] [place] [phone] Tiana Sibley 10/25/2025 12:30 PM EST PACE Home Care / [facility] [address] [place] [phone] Lata Ford 10/25/2025 5:30 PM EST PACE Home Care / [facility] [address] [place] [address] Daksha Yates 10/26/2025 8:00 AM EST PACE Home Care / [facility] [address] [place] [address] Melissa Raza 10/26/2025 12:30 PM EST PACE Home Care / [facility] [address] [place] [address] Melissa Raza 10/26/2025 5:30 PM EST PACE Home Care / [facility] [address] [place] [phone] Trudy [facility] 10/27/2025 8:00 AM EST PACE Home Care / [facility] [address] [place] [phone] Tiana Sibley 10/27/2025 12:30 PM EST PACE Home Care / [facility] [address] [place] [phone] Danskimberly [facility] 10/27/2025 5:30 PM EST PACE Home Care / [facility] [address] [place] [phone] Dansereadaniel [facility] 10/28/2025 8:30 AM EST PACE Home Care / [facility] [address] [place] [phone] Tiana Sibley 10/28/2025 12:30 PM EST PACE Home Care / [facility] [address] [place] [phone] Trudy [facility] 10/28/2025 5:30 PM EST PACE Home Care / [facility] [address] [place] [address] Tiana Sibley 10/29/2025 8:30 AM EST PACE Home Care / [facility] [place] [facility] [address] [place] [address] Tiana Sibley 10/29/2025 12:30 PM EST PACE Home Care / [facility] [place] [facility] [address] [place] [phone] Tiana Sibley 10/29/2025 5:30 PM EST PACE Home Care / [facility] [place] [facility] [address] [place] [phone] Tiana Sibley 10/30/2025 8:00 AM EST PACE Home Care / [facility] [place] [facility] [address] [place] [phone] Dansereadaniel [facility] 10/30/2025 12:30 PM EST PACE Home Care / [facility] [place] [facility] [address] [place] [phone] Dansereau, [facility] 10/30/2025 5:30 PM EST PACE Home Care / [facility] [place] [facility] [address] [place] [phone] Dansereau, [facility] 10/31/2025 8:00 AM EST PACE Home Care / [facility] [place] [facility] [address] [place] [phone] Melissa Raza 10/31/2025 12:30 PM EST PACE Home Care / [facility] Visit [facility] [address] [place] [phone] Melissa Raza 10/31/2025 5:30 PM EST PACE Home Care / [facility] [place] [facility] [address] [place] [phone] Daksha Yates 11/01/2025 8:00 AM EST PACE Home Care / [facility] [place] [facility] [address] [place] [phone] Tiana Sibley 11/01/2025 12:30 PM EST PACE Home Care / [facility] [place] [facility] [address] [place] [phone] Lata Ford 11/01/2025 5:30 PM EST PACE Home Care / [facility] [address] [place] [phone] Daksha Yates 11/02/2025 8:00 AM EST PACE Home Care / [facility] [address] [place] [phone] Melissa Raza 11/02/2025 12:30 PM EST PACE Home Care / [facility] [address] [place] [phone] Melissa Raza 11/02/2025 5:30 PM EST P[facility] Home Care / [facility] [address] [place] [phone] Daksha Yates 11/03/2025 8:00 AM EST PACE Home Care / [facility] [place] [facility] [address] [place] [phone] Tiana Sibley 11/03/2025 12:30 PM EST PACE Home Care / [facility] [place] [facility] [address] [place] [phone] Daksha Yates 11/03/2025 5:30 PM EST PACE Home Care / [facility] [address] [place] [address] Daksha Yates 11/04/2025 8:30 AM EST PACE Home Care / [facility] [place] [facility] [address] [place] [address] Tiana Sibley 11/04/2025 12:30 PM EST PACE Home Care / [facility] [place] [facility] [address] [place] [phone] Daksha Yates 11/04/2025 5:30 PM EST P[facility] Home Care / [facility] [place] [facility] [address] [place] [phone] Tiana Sibley 11/05/2025 8:30 AM EST PACE Home Care / [facility] [place] [facility] [address] [place] [phone] Tiana Sibley 11/05/2025 12:30 PM EST PACE Home Care / [facility] [address] [place] [phone] Tiana Sibley 11/05/2025 5:00 PM EST PACE Home Care / [facility] [address] [place] [phone] Tiana Sibley 11/06/2025 8:30 AM EST PACE Home Care / [facility] [address] [place] [phone] Brigida Hendricks 11/06/2025 12:30 PM EST P[facility] Home Care / [facility] [address] [place] [address] Brigida Hendricks 11/06/2025 5:30 PM EST P[facility] Home Care / [facility] [address] [place] [address] Brigida Hendricks 11/07/2025 8:00 AM EST P[facility] Home Care / [facility] [address] [place] [address] Melissa Raza 11/07/2025 12:30 PM EST PACE Home Care / [facility] [address] [place] [phone] Melissa Raza 11/07/2025 5:30 PM EST PACE Home Care / [facility] [address] [place] [phone] Daksha Yates 11/08/2025 8:00 AM EST PACE Home Care / [facility] [address] [place] [phone] Tiana Sibley 11/08/2025 12:30 PM EST PACE Home Care / [facility] [address] [place] [phone] Lata Ford 11/08/2025 5:30 PM EST PACE Home Care / [facility] [address] [place] [address] Daksha Yates 11/09/2025 8:00 AM EST PACE Home Care / [facility] [address] [place] [phone] Melissa Raza 11/09/2025 12:30 PM EST PACE Home Care / [facility] [address] [place] [address] Melissa Raza 11/09/2025 5:30 PM EST PACE Home Care / [facility] [address] [place] [phone] Daksha Yates 11/10/2025 8:00 AM EST PACE Home Care / [facility] [address] [place] [phone] Tiana Sibley 11/10/2025 12:30 PM EST PACE Home Care / [facility] [place] [facility] [address] [place] [phone] Daksha Yates 11/10/2025 5:30 PM EST PACE Home Care / [facility] [address] [place] [phone] Daksha Yates 11/11/2025 8:30 AM EST PACE Home Care / [facility] [address] [place] [phone] Tiana Sibley 11/11/2025 12:30 PM EST PACE Home Care / [facility] [place] [facility] [address] [place] [phone] Daksha Yates 11/11/2025 5:30 PM EST PACE Home Care / [facility] [address] [place] [phone] Tiana Sibley 11/12/2025 8:30 AM EST PACE Home Care / [facility] [address] [place] [phone] Tiana Sibely 11/12/2025 12:30 PM EST PACE Home Care / [facility] [address] [place] [address] Tiana Sibley 11/12/2025 5:30 PM EST PACE Home Care / [facility] [address] [place] [address] Tiana Sibley 11/13/2025 8:00 AM EST PACE Home Care / [facility] [address] [place] [phone] Daksha Yates 11/13/2025 12:30 PM EST [facility] [address] [place] [phone] Daksha Yates 11/13/2025 5:30 PM EST [facility] / [facility] [address] [place] [phone] Daksha Yates 11/14/2025 8:00 AM EST [facility] / [facility] [address] [place] [phone] Melissa Raza 11/14/2025 12:30 PM EST [facility] / [facility] [address] [place] [phone] Melissa Raza 11/14/2025 5:30 PM EST [facility] / [facility] [address] [place] [phone] Daksha Yates 11/15/2025 8:00 AM EST [facility] / [facility] [address] [place] [phone] Tiana Sibley 11/15/2025 12:30 PM EST [facility] / [facility] [address] [place] [phone] Lata Ford 11/15/2025 5:30 PM EST [facility] / [facility] [address] [place] [phone] Danskimberly, Shechristian 11/16/2025 8:00 AM EST [facility] / [facility] [address] [place] [phone] eMlissa Raza 11/16/2025 12:30 PM EST [facility] / [facility] [address] [place] [phone] Melissa Raza 11/16/2025 5:30 PM EST [facility] / [facility] [address] [place] [phone] Danskimberly, Shecrhistian 11/17/2025 8:00 AM EST [facility] / [facility] [address] [place] [phone] Tiana Sibley 11/17/2025 12:30 PM EST [facility] / [facility] [address] [place] [phone] Dansereau, [facility] 11/17/2025 5:30 PM EST [facility] / [facility] [address] [place] [phone] Dansereau, Sheana 11/18/2025 8:30 AM EST [facility] / [facility] [address] [place] [phone] Tiana Sibley 11/18/2025 12:30 PM EST [facility] / [facility] [address] [place] [phone] Daksha Yates 11/18/2025 5:30 PM EST [facility] / [facility] [address] [place] [phone] Tiana Sibley 11/19/2025 8:30 AM EST [facility] / [facility] [address] [place] [phone] Tiana Sibley 11/19/2025 12:30 PM EST [facility] / [facility] [address] [place] [phone] Tiana Sibley 11/19/2025 5:00 PM EST [facility] / [facility] [address] [place] [phone] Tiana Sibley 11/20/2025 8:30 AM EST [facility] / [facility] [address] [place] [phone] Brigida Hendricks 11/20/2025 12:30 PM EST [facility] / [facility] [address] [place] [phone] Brigida Hendricks 11/20/2025 5:30 PM EST [facility] / [facility] [address] [place] [phone] Brigida Hendricks 11/21/2025 8:00 AM EST [facility] / [facility] [address] [place] [phone] Melissa Raza 11/21/2025 12:30 PM EST [facility] / [facility] [address] [place] [phone] Meilssa Raza 11/21/2025 5:30 PM EST [facility] / [facility] [address] [place] [phone] Daksha Yates 11/22/2025 8:00 AM EST [facility] / [facility] [address] [place] [phone] Tiana Sibley 11/22/2025 12:30 PM EST [facility] / [facility] [address] [place] [phone] Lata Ford 11/22/2025 5:30 PM EST [facility] / [facility] [address] [place] [phone] Daksha Yates documented as of this encounter Visit Diagnoses Not on filedocumented in this encounter Additional Health Concerns Assessment Noted Time PHQ-9 Depression Total Score: 3 03/25/20 25 11:12 AM EDT documented as of this encounter Care Teams Hospice Chaplain Relationship Specialty Start Date End Date Reyna Zuniga NP [address] [place] [phone] PCP - General Family Medicine 11/06/24 documented as of this encounter
--- OUTSIDE RECORDS SUMMARY | 2025-09-24 04:19 | XMS_ITS | Encounter Summary ---
Author Organization [facility] Address [address] [place] [address] Care Team Providers Care First Leveler Name Role Phone Reyna Zuniga NP Primary Care Provider Encounter Details Date Type Department Care Team (Late st Contact Info) Description 09/20/2025 PACE Fall [facility] Marie [facility] [address] [place] [address] Anne-Marie Cook PCA Social History Tobacco Use Types Packs/Day Years Used Date Smoking Tobacco: Former Cigarettes Smokeless Tobacco: Never Comments:Ex-smoker Sex and Gender Information Value Date Recorded Sex Assigned at Not on file Legal Sex Male 9:32 AM EST Gender Identity Not on file Sexual Orientation Not on file documented as of this encounter Progress Notes * Antonio Andrade OT - 09/20/2025 1:33 PM EST IDT aware. Par to be sent to SNF from ED documented in this encounter Plan of Treatment Upcoming Encounters Date Type Department Care Team (Late st Contact Info) Description 09/26/2025 1:30 PM EST PACE Home Care / PACE Home Visit Anne Marie [facility] [address] [place] [address] Asmita Matias 09/26/2025 1:30 PM EST PACE Assessment Anne Marie GALVEZ MA Physical Therapy [address] [place] [address] Fede Rock PT 09/26/2025 5:00 PM EST PACE Home Care / PACE Home Visit [facility] [address] [place] [address] Daksha Yates 09/27/2025 8:00 AM EST PACE Home Care / PACE Home Visit [facility] [address] [place] [phone] Tiana Sibley 09/27/2025 12:30 PM EST PACE Home Care / PACE Home Visit [facility] [address] [place] [address] Lata Ford 09/27/2025 5:30 PM EST PACE Home Care / PACE Home Visit [facility] [address] [place] [address] Daksha Yates 09/28/2025 8:45 AM EST Clinical Support [facility] [address] [place] [address] Federica Quintana LPN 09/28/2025 9:00 AM EST PACE Home Care / PACE Home Visit [facility] [address] [place] [address] Melissa Raza 09/28/2025 12:30 PM EST PACE Home Care / [facility] [address] [place] [phone] Melissa Raza 09/28/2025 5:30 PM EST PACE Home Care / PACE Home Visit [facility] [address] [place] [phone] Daksha Yates 09/30/2025 8:30 AM EST PACE Home Care / [facility] [address] [place] [address] Tiana Sibley 09/30/2025 9:00 AM EST Clinical Support [facility] [address] [place] [address] Federica Quintana LPN 09/30/2025 12:30 PM EST PACE Home Care / [facility] [address] [place] [phone] Lata Ford 09/30/2025 5:30 PM EST PACE Home Care / PACE Home Visit [facility] [address] [place] [phone] Tiana Sibley 10/01/2025 8:30 AM EST PACE Home Care / PACE Home Visit [facility] [address] [place] [phone] Tiana Sibley 10/01/2025 12:30 PM EST PACE Home Care / PACE Home Visit [facility] [address] [place] [phone] Tiana Sibley 10/01/2025 5:30 PM EST PACE Home Care / [facility] [address] [place] [phone] Tiana Sibley 10/02/2025 8:00 AM EST PACE Home Care / [facility] [address] [place] [phone] Daksha Yates 10/02/2025 12:30 PM EST PACE Home Care / [facility] Visit [facility] [address] [place] [phone] Daksha Yates 10/02/2025 5:30 PM EST PACE Home Care / [facility] Visit [facility] [place] [facility] [address] [place] [address] Daksha Yates 10/03/2025 8:00 AM EST PACE Home Care / [facility] Visit [facility] [place] [facility] [address] [place] [address] Melissa Raza 10/03/2025 8:45 AM EST Clinical Support [facility] [address] [place] [address] Federica Quintana LPN 10/03/2025 12:30 PM EST PACE Home Care / [facility] Visit [facility] [place] [facility] [address] [place] [address] Melissa Raza 10/03/2025 5:30 PM EST PACE Home Care / [facility] Visit [facility] [address] [place] [address] Daksha Yates 10/04/2025 8:00 AM EST PACE Home Care / [facility] [address] [place] [phone] Tiana Sibley 10/04/2025 12:30 PM EST PACE Home Care / [facility] [address] [place] [address] Lata Ford 10/04/2025 5:30 PM EST PACE Home Care / [facility] [address] [place] [phone] Daksha Yates 10/05/2025 8:00 AM EST PACE Home Care / [facility] [address] [place] [phone] Melissa Raza 10/05/2025 12:30 PM EST PACE Home Care / [facility] [place] [facility] [address] [place] [address] Melissa Raza 10/05/2025 5:30 PM EST PACE Home Care / [facility] [place] [facility] [address] [place] [phone] Daksha Yates 10/06/2025 8:00 AM EST PACE Home Care / [facility] [address] [place] [phone] Tiana Sibley 10/06/2025 12:30 PM EST PACE Home Care / [facility] [address] [place] [phone] Daksha Yates 10/06/2025 5:30 PM EST PACE Home Care / [facility] [address] [place] [phone] Daksha Yates 10/07/2025 8:30 AM EST PACE Home Care / [facility] [address] [place] [phone] Tiana Sibley 10/07/2025 12:30 PM EST PACE Home Care / [facility] [place] [facility] [address] [place] [phone] Daksha Yates 10/07/2025 5:30 PM EST PACE Home Care / [facility] [place] [facility] [address] [place] [phone] Tiana Sibley 10/08/2025 8:30 AM EST PACE Home Care / [facility] [place] [facility] [address] [place] [phone] Tiana Sibley 10/08/2025 12:30 PM EST PACE Home Care / [facility] [address] [place] [address] Tiana Sibley 10/08/2025 5:00 PM EST PACE Home Care / [facility] [place] [facility] [address] [place] [phone] Tiana Sibley 10/09/2025 8:30 AM EST PACE Home Care / [facility] [place] [facility] [address] [place] [phone] Brigida Hendricks 10/09/2025 12:30 PM EST PACE Home Care / [facility] [address] [place] [phone] Brigida Hendricks 10/09/2025 5:30 PM EST PACE Home Care / [facility] [address] [place] [phone] Brigida Hendricks 10/10/2025 8:00 AM EST PACE Home Care / [facility] [address] [place] [phone] Melissa Raza 10/10/2025 12:30 PM EST PACE Home Care / [facility] [place] [facility] [address] [place] [phone] Melissa Raza 10/10/2025 5:30 PM EST PACE Home Care / [facility] [place] [facility] [address] [place] [phone] Daksha Yates 10/11/2025 8:00 AM EST PACE Home Care / [facility] [address] [place] [phone] Tiana Sibley 10/11/2025 12:30 PM EST PACE Home Care / [facility] [place] [facility] [address] [place] [address] Lata Ford 10/11/2025 5:30 PM EST PACE Home Care / [facility] [place] [facility] [address] [place] [address] Daksha Yates 10/12/2025 8:00 AM EST PACE Home Care / [facility] [place] [facility] [address] [place] [phone] Melissa Raza 10/12/2025 12:30 PM EST PACE Home Care / [facility] [place] [facility] [address] [place] [phone] Melissa Raza 10/12/2025 5:30 PM EST PACE Home Care / [facility] [address] [place] [phone] Daksha Yates 10/13/2025 8:00 AM EST PACE Home Care / [facility] [address] [place] [phone] Tiana Sibley 10/13/2025 12:30 PM EST PACE Home Care / [facility] [address] [place] [phone] Daksha Yates 10/13/2025 5:30 PM EST PACE Home Care / [facility] [address] [place] [phone] Daksha Yates 10/14/2025 8:30 AM EST PACE Home Care / [facility] [address] [place] [address] [place] [phone] Tiana Sibley 10/14/2025 12:30 PM EST PACE Home Care / [facility] [place] [facility] [address] [place] [address] Daksha Yates 10/14/2025 5:30 PM EST PACE Home Care / [facility] [address] [place] [address] Tiana Sibley 10/15/2025 8:30 AM EST PACE Home Care / [facility] [address] [place] [phone] Tiana Sibley 10/15/2025 12:30 PM EST PACE Home Care / [facility] [address] [place] [phone] Tiana Sibley 10/15/2025 5:30 PM EST PACE Home Care / [facility] [address] [place] [phone] Tiana Sibley 10/16/2025 8:00 AM EST PACE Home Care / [facility] [address] [place] [phone] Daksha Yates 10/16/2025 12:30 PM EST PACE Home Care / [facility] [address] [place] [phone] DansDaksha harris 10/16/2025 5:30 PM EST PACE Home Care / [facility] [address] [place] [phone] Daksha Yates 10/17/2025 8:00 AM EST PACE Home Care / [facility] [address] [place] [address] Melissa Raza 10/17/2025 12:30 PM EST PACE Home Care / [facility] [place] [facility] [address] [place] [address] Melissa Raza 10/17/2025 5:30 PM EST PACE Home Care / [facility] [place] [facility] [address] [place] [phone] Daksha Yates 10/18/2025 8:00 AM EST PACE Home Care / [facility] [address] [place] [phone] Tiana Sibley 10/18/2025 12:30 PM EST PACE Home Care / [facility] [address] [place] [phone] Lata Ford 10/18/2025 5:30 PM EST PACE Home Care / [facility] [address] [place] [phone] Daksha Yates 10/19/2025 8:00 AM EST PACE Home Care / [facility] Visit [facility] [place] [facility] [address] [place] [phone] Melissa Raza 10/19/2025 12:30 PM EST PACE Home Care / [facility] [address] [place] [phone] Melissa Raza 10/19/2025 5:30 PM EST PACE Home Care / [facility] [address] [place] [phone] Daksha Yates 10/20/2025 8:00 AM EST PACE Home Care / [facility] [place] [facility] [address] [place] [address] Tiana Sibley 10/20/2025 12:30 PM EST PACE Home Care / [facility] [address] [place] [address] Daksha Yates 10/20/2025 5:30 PM EST PACE Home Care / [facility] [address] [place] [phone] Daksha Yates 10/21/2025 8:30 AM EST PACE Home Care / [facility] [place] [facility] [address] [place] [phone] Tiana Sibley 10/21/2025 12:30 PM EST PACE Home Care / [facility] [address] [place] [phone] Daksha Yates 10/21/2025 5:30 PM EST PACE Home Care / [facility] [address] [place] [phone] Tiana Sibley 10/22/2025 8:30 AM EST PACE Home Care / [facility] [address] [place] [phone] Tiana Sibley 10/22/2025 12:30 PM EST PACE Home Care / [facility] [address] [place] [phone] Tiana Sibley 10/22/2025 5:00 PM EST PACE Home Care / [facility] [address] [place] [phone] Tiana Sibley 10/23/2025 8:30 AM EST PACE Home Care / [facility] [address] [place] [address] Brigida Hendricks 10/23/2025 12:30 PM EST P[facility] Home Care / [facility] [address] [place] [address] Brigida Hendricks 10/23/2025 5:30 PM EST PACE Home Care / [facility] [address] [place] [address] Brigida Hendricks 10/24/2025 8:00 AM EST P[facility] Home Care / [facility] [address] [place] [phone] Melissa Raza 10/24/2025 12:30 PM EST P[facility] Home Care / [facility] [address] [place] [phone] Melissa Raza 10/24/2025 5:30 PM EST PACE Home Care / [facility] [address] [place] [phone] Daksha Yates 10/25/2025 8:00 AM EST PACE Home Care / [facility] [address] [place] [phone] Tiana Sibley 10/25/2025 12:30 PM EST PACE Home Care / [facility] [address] [place] [phone] Lata Ford 10/25/2025 5:30 PM EST PACE Home Care / [facility] [address] [place] [phone] Daksha Yates 10/26/2025 8:00 AM EST P[facility] Home Care / [facility] [address] [place] [address] Melissa Raza 10/26/2025 12:30 PM EST PACE Home Care / [facility] [address] [place] [phone] Melissa Raza 10/26/2025 5:30 PM EST PACE Home Care / [facility] [address] [place] [phone] Daksha Yates 10/27/2025 8:00 AM EST P[facility] Home Care / [facility] [address] [place] [phone] Tiana Sibley 10/27/2025 12:30 PM EST PACE Home Care / [facility] [address] [place] [phone] [facility]/27/[facility]25 5:30 PM EST P[facility] Home [facility] / [facility] [address] [place] [phone] Daksha Yates 10/28/2025 8:30 AM EST PACE Home Care / [facility] [place] [facility] [address] [place] [phone] Tiana Sibley 10/28/2025 12:30 PM EST PACE Home Care / [facility] [address] [place] [phone] Daksha Yates 10/28/2025 5:30 PM EST PACE Home Care / [facility] [place] [facility] [address] [place] [phone] Tiana Sibley 10/29/2025 8:30 AM EST PACE Home Care / [facility] [place] [facility] [address] [place] [address] Tiana Sibley 10/29/2025 12:30 PM EST PACE Home Care / [facility] [address] [place] [address] Tiana Sibley 10/29/2025 5:30 PM EST PACE Home Care / [facility] [address] [place] [phone] Tiana Sibley 10/30/2025 8:00 AM EST PACE Home Care / [facility] [address] [place] [phone] Daksha Yates 10/30/2025 12:30 PM EST P[facility] Home Care / [facility] [address] [place] [phone] Daksha Yates 10/30/2025 5:30 PM EST P[facility] Home Care / [facility] [address] [place] [phone] Daksha Yates 10/31/2025 8:00 AM EST P[facility] Home Care / [facility] [address] [place] [phone] Melissa Raza 10/31/2025 12:30 PM EST P[facility] Home [facility] / [facility] [address] [place] [phone] Melissa Raza 10/31/2025 5:30 PM EST PACE Home Care / [facility] [address] [place] [phone] Daksha Yates 11/01/2025 8:00 AM EST P[facility] Home Care / [facility] [place] [facility] [address] [place] [phone] Tiana Sibley 11/01/2025 12:30 PM EST PACE Home Care / [facility] [address] [place] [phone] Lata Ford 11/01/2025 5:30 PM EST PACE Home Care / [facility] [address] [place] [phone] Daksha Yates 11/02/2025 8:00 AM EST PACE Home Care / [facility] [address] [place] [phone] Melissa Raza 11/02/2025 12:30 PM EST PACE Home Care / [facility] [address] [place] [phone] Melissa Raza 11/02/2025 5:30 PM EST PACE Home Care / [facility] [address] [place] [phone] Daksha Yates 11/03/2025 8:00 AM EST PACE Home Care / [facility] [address] [place] [phone] Tiana Sibley 11/03/2025 12:30 PM EST PACE Home Care / [facility] [address] [place] [phone] Daksha Yates 11/03/2025 5:30 PM EST PACE Home Care / [facility] [address] [place] [phone] Daksha Yates 11/04/2025 8:30 AM EST P[facility] Home Care / [facility] [address] [place] [address] Tiana Sibley 11/04/2025 12:30 PM EST PACE Home Care / [facility] [address] [place] [address] Daksha Yates 11/04/2025 5:30 PM EST PACE Home Care / [facility] [address] [place] [phone] Tiana Sibley 11/05/2025 8:30 AM EST PACE Home Care / [facility] [address] [place] [phone] Tiana Sibley 11/05/2025 12:30 PM EST PACE Home Care / [facility] [address] [place] [phone] Tiana Sibley 11/05/2025 5:00 PM EST PACE Home Care / [facility] [address] [place] [phone] Tiana Sibley 11/06/2025 8:30 AM EST P[facility] Home Care / [facility] [address] [place] [phone] Brigida Hendricks 11/06/2025 12:30 PM EST PACE Home Care / [facility] [address] [place] [phone] Brigida Hendricks 11/06/2025 5:30 PM EST PACE Home Care / [facility] [address] [place] [phone] Brigida Hendricks 11/07/2025 8:00 AM EST P[facility] Home [facility] / [facility] [address] [place] [address] Melissa Raza 11/07/2025 12:30 PM EST P[facility] Home Care / [facility] [address] [place] [phone] Melissa Raza 11/07/2025 5:30 PM EST P[facility] Home [facility] / [facility] [address] [place] [phone] Daksha Yates 11/08/2025 8:00 AM EST PACE Home Care / [facility] [place] [facility] [address] [place] [phone] Tiana Sibley 11/08/2025 12:30 PM EST PACE Home Care / [facility] [address] [place] [phone] Lata Ford 11/08/2025 5:30 PM EST PACE Home Care / [facility] [address] [place] [phone] Daksha Yates 11/09/2025 8:00 AM EST PACE Home Care / [facility] [address] [place] [phone] Melissa Raza 11/09/2025 12:30 PM EST PACE Home Care / [facility] [address] [place] [phone] Melissa Raza 11/09/2025 5:30 PM EST PACE Home [facility] / [facility] [address] [place] [address] Trudy, Daksha 11/10/2025 8:00 AM EST PACE Home Care / [facility] [address] [place] [phone] Tiana Sibley 11/10/2025 12:30 PM EST PACE Home Care / [facility] [address] [place] [phone] Trudy, Daksha 11/10/2025 5:30 PM EST PACE Home Care / [facility] [address] [place] [phone] [facility] 11/11/2025 8:30 AM EST PACE Home Care / [facility] [address] [place] [phone] Tiana Sibley 11/11/2025 12:30 PM EST PACE Home Care / [facility] [place] [facility] [address] [place] [phone] KeshaDaksha harris 11/11/2025 5:30 PM EST PACE Home Care / [facility] [place] [facility] [address] [place] [phone] Tiana Sibley 11/12/2025 8:30 AM EST PACE Home Care / [facility] [place] [facility] [address] [place] [phone] Tiana Sibley 11/12/2025 12:30 PM EST PACE Home Care / [facility] [place] [facility] [address] [place] [phone] Tiana Sibley 11/12/2025 5:30 PM EST [facility] / [facility] [address] [place] [phone] Tiana Sibley 11/13/2025 8:00 AM EST [facility] Home [facility] / [facility] [address] [place] [phone] Daksha Yates 11/13/2025 12:30 PM EST [facility] Home [facility] / [facility] [address] [place] [phone] Daksha Yates 11/13/2025 5:30 PM EST [facility] / [facility] [address] [place] [phone] Daksha Yates 11/14/2025 8:00 AM EST [facility] / [facility] [address] [place] [phone] Melissa Raza 11/14/2025 12:30 PM EST [facility] / [facility] [place] [facility] [address] [place] [phone] Melissa Raza 11/14/2025 5:30 PM EST [facility] / [facility] [address] [place] [phone] Daksha Yates 11/15/2025 8:00 AM EST [facility] / [facility] [place] [facility] [address] [place] [phone] Tiana Sibley 11/15/2025 12:30 PM EST [facility] / [facility] [place] [facility] [place] [facility] [address] [place] [phone] Lata Ford 11/15/2025 5:30 PM EST [facility] / [facility] [place] [facility] [place] [facility] [address] [place] [phone] [facility] 8:00 AM EST [facility] [place] [facility] [place] [facility] [address] [place] [phone] Melissa Raza 11/16/2025 12:30 PM EST [facility] / [facility] [place] [facility] [place] [facility] [address] [place] [phone] Melissa Raza 11/16/2025 5:30 PM EST [facility] / [facility] [place] [facility] [place] [facility] [address] [place] [phone] Trudy [facility] 11/17/2025 8:00 AM EST [facility] / [facility] [facility] [place] [facility] [place] [facility] [address] [place] [phone] Tiana Sibley 11/17/2025 12:30 PM EST [facility] / [facility] [facility] [place] [facility] [place] [facility] [address] [place] [phone] Danskimberly [facility] 11/17/2025 5:30 PM EST [facility] Home [facility] / [facility] [facility] [place] [facility] [place] [facility] [address] [place] [phone] Dansereadaniel [facility] 11/18/2025 8:30 AM EST [facility] / [facility] [facility] [place] [facility] [place] [facility] [address] [place] [phone] Tiana Sibley 11/18/2025 12:30 PM EST [facility] / [facility] [facility] [place] [facility] [place] [facility] [address] [place] [phone] DansDaksha harris 11/18/2025 5:30 PM EST [facility] / [facility] [place] [facility] [place] [facility] [address] [place] [phone] Tiana Sibley 11/19/2025 8:30 AM EST [facility] / [facility] [place] [facility] [place] [facility] [address] [place] [phone] Tiana Sibley 11/19/2025 12:30 PM EST [facility] / [facility] [place] [facility] [address] [place] [phone] Tiana Sibley 11/19/2025 5:00 PM EST [facility] / [facility] [place] [facility] [place] [facility] [address] [place] [phone] Tiana Sibley 11/20/2025 8:30 AM EST [facility] / [facility] [place] [facility] [address] [place] [phone] Brigida Hendricks 11/20/2025 12:30 PM EST [facility] / [facility] [place] [facility] [address] [place] [phone] Brigida Hendricks 11/20/2025 5:30 PM EST [facility] / [facility] [place] [facility] [place] [facility] [address] [place] [phone] Brigida Hendricks 11/21/2025 8:00 AM EST [facility] / [facility] [place] [facility] [place] [facility] [address] [place] [phone] Melissa Raza 11/21/2025 12:30 PM EST [facility] / [facility] [place] [facility] [place] [facility] [address] [place] [phone] Melissa Raza 11/21/2025 5:30 PM EST [facility] / [facility] [place] [facility] [address] [place] [phone] Daksha Yates 11/22/2025 8:00 AM EST [facility] / [facility] [place] [facility] [place] [facility] [address] [place] [phone] Tiana Sibley 11/22/2025 12:30 PM EST [facility] / [facility] [place] [facility] [address] [place] [phone] Lata Ford 11/22/2025 5:30 PM EST [facility] / [facility] [address] [place] [phone] Daksha Yates documented as of this encounter Visit Diagnoses Not on filedocumented in this encounter Additional Health Concerns Assessment Noted Time PHQ-9 Depression Total Score: 3 03/25/20 11:12 AM EDT documented as of this encounter Care Teams First Leveler Relationship Specialty Start Date End Date Reyna Zuniga NP [address] [place] [phone] PCP - General Family Medicine 11/06/24 documented as of this encounter
--- OUTSIDE RECORDS SUMMARY | 2025-09-24 04:19 | XMS_ITS | Encounter Summary ---
Author Organization [facility] Address [address] [place] [address] Care Team Providers [facility] Recruiting Intern Name Role Phone Reyna Zuniga NP Primary Care Provider [phone] Encounter Details Date Type Department Care Team (Late st Contact Info) Description 09/20/2025 PACE Fall [facility] [address] [place] [address] Anne-Marie Cook, TOAN Social History Tobacco Use Types Packs/Day Years Used Date Smoking Tobacco: Former Cigarettes Smokeless Tobacco: Never Comments:Ex-smoker Sex and Gender Information Value Date Recorded Sex Assigned at Not on file Legal Sex Male 9:32 AM EST Gender Identity Not on file Sexual Orientation Not on file documented as of this encounter Progress Notes * Antonio Andrade OT - 09/20/2025 1:27 PM EST IDT aware. Par to be sent to SNF. documented in this encounter Plan of Treatment Upcoming Encounters Date Type Department Care Team (Late st Contact Info) Description 09/26/2025 1:30 PM EST PACE Home Care / PACE Home Visit [facility] [address] [place] [address] Asmita Matias 09/26/2025 1:30 PM EST PACE Assessment [facility] [address] [place] [address] Fede Rock PT 09/26/2025 5:00 PM EST PACE Home Care / PACE Home Visit [facility] [address] [place] [address] Daksha Yates 09/27/2025 8:00 AM EST PACE Home Care / PACE Home Visit [facility] [address] [place] [phone] Tiana Sibley 09/27/2025 12:30 PM EST PACE Home Care / PACE Home Visit [facility] [address] [place] [phone] Lata Ford 09/27/2025 5:30 PM EST PACE Home Care / PACE Home Visit [facility] [address] [place] [address] Daksha Yates 09/28/2025 8:45 AM EST Clinical Support [facility] [address] [place] [address] Federica Quintana LPN 09/28/2025 9:00 AM EST PACE Home Care / PACE Home Visit [facility] [address] [place] [address] Melissa Raza 09/28/2025 12:30 PM EST PACE Home Care / P[facility] Home Visit [facility] [address] [place] [phone] Melissa Raza 09/28/2025 5:30 PM EST PACE Home Care / [facility] Home Visit [facility] [address] [place] [phone] Daksha Yates 09/30/2025 8:30 AM EST PACE Home Care / PACE Home Visit [facility] [address] [place] [address] Tiana Sibley 09/30/2025 9:00 AM EST Clinical Support [facility] [address] [place] [address] Federica Quintana LPN 09/30/2025 12:30 PM EST PACE Home Care / PACE Home Visit [facility] [address] [place] [address] Lata Ford 09/30/2025 5:30 PM EST PACE Home Care / PACE Home Visit [facility] [address] [place] [phone] Tiana Sibley 10/01/2025 8:30 AM EST PACE Home Care / PACE Home Visit [facility] [address] [place] [phone] Tiana Sibley 10/01/2025 12:30 PM EST PACE Home Care / PACE Home Visit [facility] [address] [place] [phone] Tiana Sibley 10/01/2025 5:30 PM EST PACE Home Care / PACE Home Visit [facility] [address] [place] [phone] Tiana Sibley 10/02/2025 8:00 AM EST PACE Home Care / PACE Home Visit [facility] [address] [place] [phone] Daksha Yates 10/02/2025 12:30 PM EST PACE Home Care / [facility] Visit [facility] [address] [place] [phone] Daksha Yates 10/02/2025 5:30 PM EST PACE Home Care / [facility] [address] [place] [address] Daksha Yates 10/03/2025 8:00 AM EST PACE Home Care / [facility] [address] [place] [address] Melissa Raza 10/03/2025 8:45 AM EST Clinical Support [facility] [address] [place] [address] Federica Quintana LPN 10/03/2025 12:30 PM EST PACE Home Care / P[facility] Home Visit [facility] [address] [place] [address] Melissa Raza 10/03/2025 5:30 PM EST PACE Home Care / PACE Home Visit [facility] [address] [place] [phone] Daksha Yates 10/04/2025 8:00 AM EST PACE Home Care / [facility] [address] [place] [phone] Tiana Sibley 10/04/2025 12:30 PM EST PACE Home Care / [facility] [address] [place] [phone] Lata Ford 10/04/2025 5:30 PM EST PACE Home Care / [facility] [address] [place] [phone] Daksha Yates 10/05/2025 8:00 AM EST PACE Home Care / [facility] [address] [place] [phone] Melissa Raza 10/05/2025 12:30 PM EST PACE Home Care / [facility] [address] [place] [address] Melissa Raza 10/05/2025 5:30 PM EST PACE Home Care / [facility] Visit [facility] [address] [place] [address] Daksha Yates 10/06/2025 8:00 AM EST PACE Home Care / [facility] [address] [place] [phone] Tiana Sibley 10/06/2025 12:30 PM EST PACE Home Care / [facility] [address] [place] [phone] Daksha Yates 10/06/2025 5:30 PM EST PACE Home Care / [facility] [address] [place] [phone] Daksha Yates 10/07/2025 8:30 AM EST PACE Home Care / [facility] [address] [place] [phone] Tiana Sibley 10/07/2025 12:30 PM EST PACE Home Care / [facility] [address] [place] [phone] Daksha Yates 10/07/2025 5:30 PM EST PACE Home Care / [facility] [address] [place] [phone] Tiana Sibley 10/08/2025 8:30 AM EST PACE Home Care / [facility] [address] [place] [phone] Tiana Sibley 10/08/2025 12:30 PM EST PACE Home Care / [facility] [address] [place] [phone] Tiana Sibley 10/08/2025 5:00 PM EST PACE Home Care / [facility] [address] [place] [phone] Tiana Sibley 10/09/2025 8:30 AM EST PACE Home Care / [facility] [address] [place] [phone] Brigida Hendricks 10/09/2025 12:30 PM EST PACE Home Care / [facility] [address] [place] [phone] Brigida Hendricks 10/09/2025 5:30 PM EST PACE Home Care / [facility] Visit [facility] [address] [place] [phone] Brigida Hendricks 10/10/2025 8:00 AM EST PACE Home Care / [facility] [address] [place] [phone] Melissa Raza 10/10/2025 12:30 PM EST PACE Home Care / [facility] [address] [place] [phone] Melissa Raza 10/10/2025 5:30 PM EST PACE Home Care / [facility] [address] [place] [phone] Daksha Yates 10/11/2025 8:00 AM EST PACE Home Care / [facility] [address] [place] [phone] Tiana Sibley 10/11/2025 12:30 PM EST PACE Home Care / [facility] [address] [place] [address] Lata Ford 10/11/2025 5:30 PM EST PACE Home Care / [facility] Visit [facility] [address] [place] [address] Daksha Yates 10/12/2025 8:00 AM EST PACE Home Care / [facility] [address] [place] [phone] Melissa Raza 10/12/2025 12:30 PM EST PACE Home Care / [facility] [address] [place] [phone] Melissa Raza 10/12/2025 5:30 PM EST PACE Home Care / [facility] [address] [place] [phone] Daksha Yates 10/13/2025 8:00 AM EST PACE Home Care / [facility] [address] [place] [phone] Tiana Sibley 10/13/2025 12:30 PM EST PACE Home Care / [facility] [address] [place] [phone] Daksha Yates 10/13/2025 5:30 PM EST PACE Home Care / [facility] [address] [place] [phone] Daksha Yates 10/14/2025 8:30 AM EST PACE Home Care / [facility] [address] [place] [phone] Tiana Sibley 10/14/2025 12:30 PM EST PACE Home Care / [facility] [address] [place] [address] Daksha Yates 10/14/2025 5:30 PM EST PACE Home Care / [facility] [address] [place] [address] Tiana Sibley 10/15/2025 8:30 AM EST PACE Home Care / [facility] [address] [place] [phone] Tiana Sibley 10/15/2025 12:30 PM EST PACE Home Care / [facility] [address] [place] [phone] Tiana Sibley 10/15/2025 5:30 PM EST PACE Home Care / [facility] [address] [place] [phone] Tiana Sibley 10/16/2025 8:00 AM EST PACE Home Care / [facility] [address] [place] [phone] Daksha Yates 10/16/2025 12:30 PM EST PACE Home Care / [facility] [address] [place] [phone] DansDaksha harris 10/16/2025 5:30 PM EST PACE Home Care / [facility] [address] [place] [phone] Daksha Yates 10/17/2025 8:00 AM EST PACE Home Care / [facility] [address] [place] [address] Melissa Raza 10/17/2025 12:30 PM EST PACE Home Care / [facility] Visit [facility] [address] [place] [phone] Melissa Raza 10/17/2025 5:30 PM EST PACE Home Care / [facility] [address] [place] [phone] Daksha Yates 10/18/2025 8:00 AM EST PACE Home Care / [facility] [address] [place] [phone] Tiana Sibley 10/18/2025 12:30 PM EST PACE Home Care / [facility] [address] [place] [phone] Lata Ford 10/18/2025 5:30 PM EST PACE Home Care / [facility] [address] [place] [phone] Daksha Yates 10/19/2025 8:00 AM EST PACE Home Care / [facility] [address] [place] [phone] Melissa Raza 10/19/2025 12:30 PM EST PACE Home Care / [facility] [address] [place] [phone] Melissa Raza 10/19/2025 5:30 PM EST PACE Home Care / [facility] [address] [place] [phone] Daksha Yates 10/20/2025 8:00 AM EST PACE Home Care / [facility] [address] [place] [address] Tiana Sibley 10/20/2025 12:30 PM EST PACE Home Care / [facility] [address] [place] [address] Daksha Yates 10/20/2025 5:30 PM EST PACE Home Care / [facility] [address] [place] [phone] Daksha Yates 10/21/2025 8:30 AM EST PACE Home Care / [facility] [address] [place] [phone] Tiana Sibley 10/21/2025 12:30 PM EST PACE Home Care / [facility] [address] [place] [phone] Daksha Yates 10/21/2025 5:30 PM EST PACE Home Care / [facility] [address] [place] [phone] Tiana Sibley 10/22/2025 8:30 AM EST PACE Home Care / [facility] [address] [place] [phone] Tiana Sibley 10/22/2025 12:30 PM EST PACE Home Care / [facility] [address] [place] [phone] Tiana Sibley 10/22/2025 5:00 PM EST PACE Home Care / [facility] [address] [place] [phone] Tiana Sibley 10/23/2025 8:30 AM EST PACE Home Care / [facility] [address] [place] [address] Brigida Hendricks 10/23/2025 12:30 PM EST PACE Home Care / [facility] [address] [place] [address] Brigida Hendricks 10/23/2025 5:30 PM EST PACE Home Care / [facility] [address] [place] [phone] Brigida Hendricks 10/24/2025 8:00 AM EST PACE Home Care / [facility] [address] [place] [phone] Melissa Raza 10/24/2025 12:30 PM EST PACE Home Care / [facility] [address] [place] [phone] Melissa Raza 10/24/2025 5:30 PM EST PACE Home Care / [facility] [address] [place] [phone] Daksha Yates 10/25/2025 8:00 AM EST PACE Home Care / [facility] [address] [place] [phone] Tiana Sibley 10/25/2025 12:30 PM EST PACE Home Care / [facility] [address] [place] [phone] Lata Ford 10/25/2025 5:30 PM EST PACE Home Care / [facility] [address] [place] [phone] Daksha Yates 10/26/2025 8:00 AM EST PACE Home Care / [facility] [address] [place] [address] Melissa Raza 10/26/2025 12:30 PM EST PACE Home Care / [facility] [address] [place] [address] Melissa Raza 10/26/2025 5:30 PM EST PACE Home Care / [facility] [address] [place] [phone] Daksha Yates 10/27/2025 8:00 AM EST PACE Home Care / [facility] [address] [place] [phone] Tiana Sibley 10/27/2025 12:30 PM EST PACE Home Care / [facility] [address] [place] [phone] Daksha Yates 10/27/2025 5:30 PM EST PACE Home Care / [facility] [address] [place] [phone] Daksha Yates 10/28/2025 8:30 AM EST PACE Home Care / [facility] [address] [place] [phone] Tiana Sibley 10/28/2025 12:30 PM EST PACE Home Care / [facility] [address] [place] [phone] Daksha Yates 10/28/2025 5:30 PM EST PACE Home Care / [facility] [address] [place] [phone] Tiana Sibley 10/29/2025 8:30 AM EST PACE Home Care / [facility] [address] [place] [address] Tiana Sibley 10/29/2025 12:30 PM EST PACE Home Care / [facility] [address] [place] [address] Tiana Sibley 10/29/2025 5:30 PM EST PACE Home Care / [facility] [address] [place] [phone] Tiana Sibley 10/30/2025 8:00 AM EST PACE Home Care / [facility] [address] [place] [phone] Daksha Yates 10/30/2025 12:30 PM EST PACE Home Care / [facility] [address] [place] [phone] Daksha Yates 10/30/2025 5:30 PM EST P[facility] Home Care / [facility] [address] [place] [phone] Daksha Yates 10/31/2025 8:00 AM EST PACE Home Care / [facility] [address] [place] [phone] Melissa Raza 10/31/2025 12:30 PM EST PACE Home Care / [facility] [address] [place] [phone] Melissa Raza 10/31/2025 5:30 PM EST PACE Home Care / [facility] [address] [place] [phone] Daksha Yates 11/01/2025 8:00 AM EST PACE Home Care / [facility] [address] [place] [address] Tiana Sibley 11/01/2025 12:30 PM EST PACE Home Care / [facility] [address] [place] [address] Lata Ford 11/01/2025 5:30 PM EST PACE Home Care / [facility] [address] [place] [phone] Daksha Yates 11/02/2025 8:00 AM EST PACE Home Care / [facility] [address] [place] [phone] Melissa Raza 11/02/2025 12:30 PM EST PACE Home Care / [facility] [address] [place] [phone] Melissa Raza 11/02/2025 5:30 PM EST PACE Home Care / [facility] [address] [place] [phone] Daksha Yates 11/03/2025 8:00 AM EST PACE Home Care / [facility] [address] [place] [phone] Tiana Sibley 11/03/2025 12:30 PM EST PACE Home Care / [facility] [address] [place] [phone] Daksha Yates 11/03/2025 5:30 PM EST PACE Home Care / [facility] [address] [place] [phone] Daksha Yates 11/04/2025 8:30 AM EST PACE Home Care / [facility] [address] [place] [address] Tiana Sibley 11/04/2025 12:30 PM EST PACE Home Care / [facility] [address] [place] [address] Daksha Yates 11/04/2025 5:30 PM EST PACE Home Care / [facility] [address] [place] [phone] Tiana Sibley 11/05/2025 8:30 AM EST PACE Home Care / [facility] [address] [place] [phone] Tiana Sibley 11/05/2025 12:30 PM EST PACE Home Care / [facility] [address] [place] [phone] Tiana Sibley 11/05/2025 5:00 PM EST PACE Home Care / [facility] [address] [place] [phone] Tiana Sibley 11/06/2025 8:30 AM EST PACE Home Care / [facility] [address] [place] [phone] Brigida Hendricks 11/06/2025 12:30 PM EST PACE Home [facility] / [facility] [address] [place] [phone] Brigida Hendricks 11/06/2025 5:30 PM EST PACE Home [facility] / [facility] [address] [place] [address] Brigida Hendricks 11/07/2025 8:00 AM EST PACE Home Care / [facility] [address] [place] [address] Melissa Raza 11/07/2025 12:30 PM EST PACE Home Care / [facility] [address] [place] [address] Melissa Raza 11/07/2025 5:30 PM EST PACE Home Care / [facility] [address] [place] [phone] Daksha Yates 11/08/2025 8:00 AM EST PACE Home [facility] / [facility] [address] [place] [phone] Tiana Sibley 11/08/2025 12:30 PM EST PACE Home Care / [facility] [address] [place] [phone] Lata Ford 11/08/2025 5:30 PM EST PACE Home Care / [facility] [address] [place] [phone] Daksha Yates 11/09/2025 8:00 AM EST PACE Home Care / [facility] [address] [place] [phone] Melissa Raza 11/09/2025 12:30 PM EST PACE Home [facility] / [facility] [address] [place] [phone] Melissa Raza 11/09/2025 5:30 PM EST PACE Home [facility] / [facility] [address] [place] [address] [facility]/10/[facility]25 8:00 AM EST PACE Home [facility] / [facility] [address] [place] [phone] Tiana Sibley 11/10/2025 12:30 PM EST PACE Home Care / [facility] [place] [facility] [address] [place] [address] Trudy, [facility] 11/10/2025 5:30 PM EST PACE Home Care / [facility] [address] [place] [phone] Keshakimberly, [facility] 11/11/2025 8:30 AM EST PACE Home Care / [facility] [address] [place] [phone] Tiana Sibley 11/11/2025 12:30 PM EST PACE Home Care / [facility] [address] [place] [phone] Danskimberly, [facility] 11/11/2025 5:30 PM EST [facility] / [facility] [address] [place] [phone] Tiana Sibley 11/12/2025 8:30 AM EST [facility] / [facility] [address] [place] [phone] Tiana Sibley 11/12/2025 12:30 PM EST [facility] / [facility] [address] [place] [phone] Tiana Sibley 11/12/2025 5:30 PM EST [facility] / [facility] [address] [place] [phone] Tiana Sibley 11/13/2025 8:00 AM EST [facility] / [facility] [address] [place] [phone] Daksha Yates 11/13/2025 12:30 PM EST [facility] / [facility] [address] [place] [phone] Daksha Yates 11/13/2025 5:30 PM EST [facility] / [facility] [address] [place] [phone] Daksha Yates 11/14/2025 8:00 AM EST [facility] / [facility] [address] [place] [phone] Melissa Raza 11/14/2025 12:30 PM EST [facility] / [facility] [address] [place] [phone] Melissa Raza 11/14/2025 5:30 PM EST [facility] / [facility] [address] [place] [phone] Daksha Yates 11/15/2025 8:00 AM EST [facility] / [facility] [address] [place] [phone] Tiana Sibley 11/15/2025 12:30 PM EST [facility] / [facility] [address] [place] [phone] Lata Ford 11/15/2025 5:30 PM EST [facility] / [facility] [address] [place] [phone] [facility] 11/16/[facility]25 8:00 AM EST [facility] / [facility] [address] [place] [phone] Melissa Raza 11/16/2025 12:30 PM EST [facility] / [facility] [address] [place] [phone] Melissa Raza 11/16/2025 5:30 PM EST [facility] / [facility] [address] [place] [phone] [facility] 11/17/2025 8:00 AM EST [facility] / [facility] [address] [place] [phone] Tiana Sibley 11/17/2025 12:30 PM EST [facility] / [facility] [address] [place] [phone] Danskimberly [facility] 11/17/2025 5:30 PM EST [facility] / [facility] [address] [place] [phone] Dansereadaniel [facility] 11/18/2025 8:30 AM EST [facility] Home [facility] / [facility] [address] [place] [phone] Tiana Sibley 11/18/2025 12:30 PM EST [facility] / [facility] [address] [place] [phone] [facility] 11/18/2025 5:30 PM EST [facility] / [facility] [address] [place] [phone] Tiana Sibley 11/19/2025 8:30 AM EST [facility] / [facility] [address] [place] [phone] Tiana Sibley 11/19/2025 12:30 PM EST [facility] / [facility] [address] [place] [phone] Tiana Sibley 11/19/2025 5:00 PM EST [facility] / [facility] [address] [place] [phone] Tiana Sibley 11/20/2025 8:30 AM EST [facility] / [facility] [address] [place] [phone] Brigida Hendricks 11/20/2025 12:30 PM EST [facility] / [facility] [address] [place] [phone] Brigida Hendricks 11/20/2025 5:30 PM EST [facility] / [facility] [address] [place] [phone] Brigida Hendricks 11/21/2025 8:00 AM EST [facility] / [facility] [address] [place] [phone] Melissa Raza 11/21/2025 12:30 PM EST [facility] / [facility] [address] [place] [phone] Melissa Raza 11/21/2025 5:30 PM EST [facility] / [facility] [address] [place] [phone] Daksha Yates 11/22/2025 8:00 AM EST [facility] / [facility] [address] [place] [phone] Tiana Sibley 11/22/2025 12:30 PM EST [facility] / [facility] [address] [place] [phone] Lata Ford 11/22/2025 5:30 PM EST [facility] / [facility] [address] [place] [phone] Daksha Yates documented as of this encounter Visit Diagnoses Not on filedocumented in this encounter Additional Health Concerns Assessment Noted Time PHQ-9 Depression Total Score: 3 03/25/20 11:12 AM EDT documented as of this encounter Care Teams [employer]iting Intern Relationship Specialty Start Date End Date Reyna Zuniga NP [address] [place] [id number] PCP - General Family Medicine 11/06/24 documented as of this encounter
[2025-09-24 04:39] LABS: Sodium 141 mmol/L (135-145)
[2025-09-24 04:40] LABS: Anion Gap 13 (12-20); Blood Urea Nitrogen 27 mg/dL (9-16); Calcium 8.9 mg/dL (8.4-10.2); Carbon Dioxide 25 mmol/L (22-29); Chloride 107 mmol/L (96-108); Creatinine Clr Calc Pharmacy 49.3; Estimated Glomerular Filt Rate > 60; Magnesium 2.1 mg/dL (1.6-2.6); Potassium 3.9 mmol/L (3.3-5.1)
--- NOTE | 2025-09-24 04:40 | ED_ITS ---
HPI - Fall General Chief Complaint: Fall Stated Complaint: SNF unwit fall LAC to head hx dementia & Parkinson Time Seen by Provider: 09/24/25 04:21 Source: patient and EMS Mode of arrival: EMS Limitations: other History of Present Illness ED Provider: Dr. Mckenzie Frankel HPI Narrative: Patient comes to the emergency room via ambulance from a residential facility. Patient isn't able to give full history, patient has history of Lewy body dementia and Parkinson's. However, patient states that he got up to go to the bathroom and fell on the way to the bathroom. Patient urinated on himself since he could not reach the bathroom, denies seizure-like activities. Patient has a laceration to the scalp. Patient denies neck pain. Patient is not on blood thinners. Related Data Home Medications ?Medication ?Instructions ?Recorded ?Confirmed quetiapine 25 mg tablet 25 mg PO BEDTIME 12/20/24 finasteride 5 mg tablet 5 mg PO DAILY 08/23/2508/23 midodrine 5 mg tablet 5 mg PO TID 08/23/25 5 Previous Rx's ?Medication ?Instructions ?Recorded fluticasone propionate 50 2 spray intranasal DAILY PRN 12/19/22 mcg/actuation nasal allergy symptoms 30 days #16 grams spray,suspension sennosides 8.6 mg tablet (senna) 17.2 mg (2 x 8.6 mg) PO BEDTIME 09/02/23 constipation 30 days #60 tabs escitalopram oxalate 5 mg tablet 5 mg PO DAILY 90 days #90 tabs 10/01/23 atorvastatin 40 mg tablet 40 mg PO BEDTIME 90 days #90 tabs 11/29/23 melatonin 3 mg capsule 3 mg PO BEDTIME PRN sleep #3 0 caps 04/29/25 rasagiline 1 mg tablet 1 mg PO DAILY 3 months #90 t abs 05/10/25 carbidopa 25 mg-levodopa 100 mg 1 tab PO TID 90 days # 270 tabs 08/23/25 tablet Allergies Allergy/AdvReac Type Severity Reaction Status Date / Time No Known Allergies (No Known Allergy Verified 09/24/25 04:05 Allergies*) Review of Systems 2 Review of Systems: Constitutional : No Weight loss, No Fever, No Chills, No Night Sweats, No Fatigue, No Malaise ENT/Mouth : No Hearing loss, No Ear Pain, No Nasal Congestion, No Sinus Pain, No Hoarseness, No sore throat, No Rhinorrhea, No Swallowing Difficulty Eyes: No Eye Pain, No Swelling, No Redness, No Foreign Body, No Discharge, No Vision Changes Cardiovascular : No Chest Pain, No SOB, No Dyspnea on Exertion, No Orthopnea, No Edema, No Palpitations Respiratory : No Cough, No Sputum, No Wheezing, No Smoke Exposure, No Dyspnea Gastrointestinal : No Nausea, No Vomiting, No Diarrhea, No Constipation, No abdominal Pain, No Hematochezia, No Melena Genitourinary : no irregular bleeding, No Dysuria, No Urinary Frequency, No Hematuria, No Urinary Incontinence, No Urgency, No Flank Pain, No Urinary Flow Changes, No Hesitancy Musculoskeletal : No joint pain, No Myalgias, No Joint Swelling Skin : No Skin Lesions, No rash Neuro : No Weakness, No Numbness, No Paresthesias, No Loss of Consciousness, No Dizziness, No Headache Psych : No Anxiety/Panic, No Depression, No SI/HI/AH/VH, No Social Issues, Heme/Lymph: No Bruising, No Bleeding,No Lymphadenopathy Endocrine : No Polyuria, No Polydipsia, No Temperature Intolerance PMFSH Past Medical History Medical History Orthostatic hypotension Hallucinations Benign prostate hyperplasia Parkinson's disease without dyskinesia or fluctuating manifestations Erectile dysfunction Impaired fasting glucose Hearing impairment Parkinson's disease Pure hypercholesterolemia Benign essential hypertension Surgical History History of cochlear implant (~01/03/23) History of hernia surgery Family History Family History Father No problems noted. Mother No problems noted. Social History Social History Household Members: None Housing: House Do you presently have visiting nurse or other home services: No Alcohol intake: current Alcohol intake frequency: holidays/special occasions only Alcohol type: beer Comment: occasionally Patient Tobacco Use Status: Former Tobacco user Tobacco use type: Cigarette Smoked in Last 30 Days: No e-Cigarette/Vaping Use: Never Used Second Hand Smoke Exposure: No Use of substances other than those prescribed or required for medical reasons: No Advance Directives: No Advance Directives Information Provided: Yes Do you have a plan to hurt others: No Plan service: No Current occupational status: retired Cognitive needs: No Hearing needs: Yes (hearing aide) Vision needs: Yes (reading glasses) Physical Exam 2 Vital Signs: Vital Signs: Last Vital Signs Temp 97.8 F 09/24/25 06:02 Pulse 59 09/24/25 06:14 Resp 15 09/24/25 06:02 BP 117/69 09/24/25 06:14 Pulse Ox 99 09/24/25 06:02 O2 Del Method Room Air 09/24/25 06:02 BMI result Body Mass Index 20.0 Medications Administered Generic Name Dose Route Start Last Admin Trade Name Freq PRN Reason Stop Dose Admin Sodium Chloride 1,000 mls @ 125 mls/hr 09/24/25 06:30 09/24/25 06:38 Ns IVCONT 125 mls/hr .Q8H LALA Administration Discontinued Medications Generic Name Dose Route Start Last Admin Trade Name Freq PRN Reason Stop Dose Admin Sodium Chloride 2,000 mls @ 999 mls/hr 09/24/25 04:52 09/24/25 05:50 Ns IVCONT 09/24/25 06:52 Infused .Q2H1M ONE Infusion Medical Decision Making Medical Decision Making [facility] Narrative: My interpretation of EKG: Sinus bradycardia, heart rate 52, no ST segment depression or elevation, no T-wave inversion, QTC 433 Of note, an EKG was not previously. However, it was poor quality be waveform. Patient has Parkinson's and was shaking quite a bit. Patient needed help to hold his hands down for the EKG I discussed with the patient that he has a laceration in the scalp. Patient agreeable to get myah with the lidocaine. Three myah were applied. Tolerated well the procedure. Patient's orthostatic vitals on arrival are significantly positive. Patient's blood pressure dropped from 160 to 110 systolic Patient was given 2 L of IV fluids. Orthostatic vitals were repeated. Unfortunately, his vitals are still significantly positive. His blood pressure dropped from 155/75 down to 94/58 Patient will need more IV hydration. My interpretation of labs: No significant abnormality in patient's hematology and chemistry, normal troponin, normal lipase. Urinalysis negative for UTI CT scan of the head and neck did not show any acute abnormality I discussed the above-mentioned with Dr. Leandro Almonte, patient being admitted Patient's nurse called the patient's son, made aware that the patient is being admitted. Agrees with plan. Differential Diagnosis Differential Diagnoses: The differential diagnosis associated with the presentation includes (Orthostatic hypotension, mechanical fall, UTI) Admission/Observation Consideration of admission/observation: Escalation of care including admission/observation considered Consult Healthcare Provider Management of the patient was discussed with: Hospitalist Lab Data [facility] Lab Attestation statement: I reviewed the patient's lab results. 09/24/25 04:13 09/24/25 04:13 Labs: Lab Results 09/24/25 09/24/25 Range/Units 04:13 04:37 WBC 8.0 (4.8-10.8) X10*3/uL RBC 3.99 L (4.60-5.80) X10*6/uL Hgb 12.6 L (14.0-18.0) g/dl Hct 37.3 L (42.0-52.0) % MCV 93.5 (80.0-98.0) fL MCH 31.6 (27.0-33.0) pg MCHC 33.8 (31.0-36.0) g/dl RDW 12.4 (11.0-16.0) % Plt Count 271 D (160-400) X10*3/uL MPV 11.7 (9.4-12.4) fL Immature Gran % (Auto) 0.3 (0.0-0.4) % Neut % (Auto) 56.7 (45-73) % Lymph % (Auto) 29.9 (20-40) % [place] % (Auto) 7.5 (2-11) % Eos % (Auto) 5.1 H (0-4) % Baso % (Auto) 0.5 (0-2) % Lymph # (Auto) 2.4 (1.2-4.9) X10*3/uL [place] # (Auto) 0.6 (0.1-1.2) X10*3/uL Eos # (Auto) 0.4 (0.0-0.4) X10*3/uL Baso # (Auto) 0.0 (0.0-0.2) X10*3/uL Abs Immat Gran (auto) 0.02 (0.00-0.03) X10*3/uL Absolute Neuts (auto) 4.5 (2.0-8.3) x10*3/uL Absolute Nucleated RBC 0.000 (0.0-0.012) X10*3/uL Nucleated RBC % (auto) 0.0 (0.0-0.2) /100WBC Sodium 141 (135-145) mmol/L Potassium 3.9 (3.3-5.1) mmol/L Chloride 107 (96-108) mmol/L Carbon Dioxide 25 (22-29) mmol/L Anion Gap 13 (12-20) BUN 27 H D (9-16) mg/dL Creatinine 1.09 (0.5-1.4) mg/dL Estim Creat Clear Calc 49.3 Estimated GFR > 60 Random Glucose 119 H (60-115) mg/dL Calcium 8.9 (8.4-10.2) mg/dL Magnesium 2.1 (1.6-2.6) mg/dL Total Bilirubin 0.6 (0.0-1.0) mg/dL AST 23 (5-37) U/L ALT 6 (0-40) U/L Alkaline Phosphatase 101 (39-117) U/L Troponin I High Sens 7.4 (<3.5-35.0) ng/L Total Protein 6.7 (6.5-8.0) g/dL Albumin 3.9 (3.5-5.0) g/dL Lipase 40 (8-78) U/L Urine Color Yellow Urine Appearance Clear Urine pH 7.0 (5.0-9.0) Ur Specific [place] 1.010 (1.005-1.025) Urine Protein Negative (Neg-Trace) mg/dL Urine Glucose (UA) Negative (Negative) mg/dL Urine Ketones Negative (Negative) mg/dL Urine Blood Trace H (Negative) Urine Nitrite Negative (Negative) Ur Leukocyte Esterase Negative (Negative) Urine RBC 0-2 (0-2) /HPF Urine WBC 0-5 (0-5) /HPF Ur Squamous Epith Cells 0-2 (0-2) /HPF Urine Bacteria None Seen (None Seen) Hyaline Casts 0-2 (0-2) /LPF Independent Interpretation I performed an independent interpretation of an: CT Scan Radiology Impression Discussion of test interpretation with radiology: I have reviewed the radiologist's reading. Radiologist Impression: No evidence of acute territorial infarct. There is patchy low density in the periventricular and subcortical white matter. Mild diffuse volume loss is noted. No hydrocephalus. No hemorrhage, mass effect, mass lesion or midline shift. No abnormal extra-axial fluid. No calvarial fracture. Paranasal sinuses and mastoid air cells are clear. Impression: No acute intracranial process. Chronic changes as detailed. There is straightening of the normal cervical lordosis. No fracture or acute malalignment. [id number] multilevel degenerative changes throughout the cervical spine. The facet joints are normally imbricated. No prevertebral soft tissue edema. Lung apices demonstrate no acute process. Impression: Multilevel degenerative changes without evidence of acute fracture or acute malalignment. Critical Care Time Critical Care Time Critical Care Time: Yes Total Critical Care Time: 50 Attestation: I have personally provided critical care time. Time includes review of lab data, radiology results, discussion with consultants, and monitoring for potential decompensation. Intervention performed as documented. Discharge Plan Discharge Clinical Impression: Orthostatic hypotension, Laceration of head Patient Disposition: Admitted As Inpatient Print Language: Yi
[2025-09-24 04:41] LABS: Alanine Aminotransferase 6 U/L (0-40); Albumin Level 3.9 g/dL (3.5-5.0); Alkaline Phosphatase 101 U/L (39-117); Aspartate Amino Transferase 23 U/L (5-37); Lipase 40 U/L (8-78); Total Protein 6.7 g/dL (6.5-8.0); Troponin-I High Sensitivity 7.4 ng/L (<3.5-35.0)
--- NOTE | 2025-09-24 04:55 | PC.NURSE ---
pt biba from [facility], a&ox3, respirations even and unlabored, reports fall while ambulating to bathroom, reports dizziness prior to fall but does not remember the events otherwise. - thinners, +head strike. unknown loc. c collar placed on pt by ems. pt noted to have small lac to back of right head, bleeding controlled and pt offers no complaints. 18g placed in left forearm and labs obtained. MD georges at bedside, 3 myah placed and pt tolerated well. straight cath preformed for 200ml yellow urine, urine sample sent to lab. orthostatic vitals complete and MD georges aware, pt medicated per mar. sinus mango on tele
[2025-09-24 05:34] LABS: Appearance Urine Clear; Glucose Urine UA Negative (Negative); PH 7.0 (5.0-9.0); Specific Gravity - Urine 1.010 (1.005-1.025); UMIC TRIGGER UACC YES
[2025-09-24 05:38] LABS: Hematocrit 37.3 % (42.0-52.0); Hemoglobin 12.6 g/dl (14.0-18.0); Mean Corpuscular Volume 93.5 fL (80.0-98.0); Red Blood Count 3.99 X10*6/uL (4.60-5.80); White Blood Count 8.0 X10*3/uL (4.8-10.8)
[2025-09-24 05:39] LABS: Imm Gran Abs Auto 0.02 X10*3/uL (0.00-0.03); Imm Gran Pct Auto 0.3 % (0.0-0.4); Lymphocytes Absolute Auto 2.4 X10*3/uL (1.2-4.9); Mean Corpuscular HGB Conc 33.8 g/dl (31.0-36.0); Mean Corpuscular Hemoglobin 31.6 pg (27.0-33.0); NRBC Abs Auto 0.000 X10*3/uL (0.0-0.012); NRBC Pct Auto 0.0 /100WBC (0.0-0.2); Platelet Count 271 X10*3/uL (160-400)
--- NOTE | 2025-09-24 06:04 | PC.NURSE ---
repeat orthostatic blood pressures completed at this time post 2L infusion, aware.
--- NOTE | 2025-09-24 07:44 | PM.IMHP ---
History of Present Illness Date of Service: 09/24/25 Chief Complaint: Dizziness, fall, orthostatic hypotnsin 75-year-old male with a history of Parkinson?s disease, essential hypertension, mixed hyperlipidemia, and mood disorder presented to the ED after a fall resulting in a scalp laceration. The fall was preceded by dizziness. He reports similar symptoms for several days prior to presentation. On evaluation, he was markedly orthostatic, with systolic blood pressure dropping from ?160 mmHg supine to ?110 mmHg standing. After 2 L of normal saline, repeat orthostatics remained positive (systolic 155 mmHg supine to [address] head showed no acute intracranial abnormality, and CT cervical spine was negative for fracture. Review of Systems Review of Systems: Gen: no fever Resp: no sob, no cough CV: no chest, no HANCOCK, no leg edema GI: No n/v, no abd pain Neuro: dizzy upon stading Yes all other systems are reviewed and are negative [facility] Medical History Orthostatic hypotension Hallucinations Benign prostate hyperplasia Parkinson's disease without dyskinesia or fluctuating manifestations Erectile dysfunction Impaired fasting glucose Hearing impairment Parkinson's disease Pure hypercholesterolemia Benign essential hypertension Family History Father No problems noted. Mother No problems noted. Surgical History History of cochlear implant (~01/03/23) History of hernia surgery Social History Household Members: None Housing: House Do you presently have visiting nurse or other home services: No Alcohol intake: current Alcohol intake frequency: holidays/special occasions only Alcohol type: beer Comment: occasionally Patient Tobacco Use Status: Former Tobacco user Tobacco use type: Cigarette Smoked in Last 30 Days: No e-Cigarette/Vaping Use: Never Used Second Hand Smoke Exposure: No Use of substances other than those prescribed or required for medical reasons: No Currently Displaying Signs/Symptoms of Drug Intoxication Withdrawal: No Have you been hit, kicked, punched, or otherwise hurt by someone within the past year? If so, by whom?: No Do you feel safe in your current relationship?: No Current Relationship Is there a partner from a previous relationship who is making you feel unsafe now?: No Are you made to feel afraid or neglected: No Advance Directives: No Advance Directives Information Provided: Yes Do you have a plan to hurt others: No Plan Recently lost weight without trying: Unsure How much weight loss: Unsure Eating poorly because of decreased appetite: Yes Nutrition screen score: 5 Nutrition Risks: Dental problems, Difficulty chewing and Poor intake 0-25% >4 days service: No Current occupational status: retired Cognitive needs: No Hearing needs: Yes (hearing aide) Vision needs: Yes (reading glasses) Meds Allergies Allergy/AdvReac Type Severity Reaction Status Date / Time No Known Allergies (No Known Allergy Verified 09/24/25 04:05 Allergies*) Active Medications: Current Medications Sodium Chloride (Ns) 1,000 mls @ 125 mls/hr IVCONT .Q8H [facility] Last Admin: 09/24/25 06:38 Dose: 125 mls/hr Home Medications ?Medication ?Instructions ?Recorded ?Confirmed ?Last Taken ?Type quetiapine 25 mg tablet 25 mg PO BEDTIME 12/20/24 09/24/25 09/23/25 History finasteride 5 mg tablet 5 mg PO DAILY 08/23/25 09/24/25 09/23/25 History midodrine 5 mg tablet 5 mg PO TID 08/23/25 09/24/25 09/23/25 History acetaminophen 325 mg tablet 650 mg PO Q6H PRN Fever Or Pain 09/24/25 09/24/25 Unknown History bisacodyl 10 mg rectal suppository 10 mg NM DAILY PRN Constipation 09/24/25 09/24/25 Unknown History lidocaine 5 % topical patch 1 patch topical DAILY 09/24/25 09/24/25 09/23/25 History losartan 25 mg tablet 25 mg PO BEDTIME 09/24/25 09/24/25 09/23/25 History magnesium hydroxide 400 mg/5 mL 30 ml PO DAILY PRN Constipation 09/24/25 09/24/25 Unknown History oral suspension (Milk of Magnesia) meclizine 25 mg tablet 25 mg PO Q8H PRN Dizziness 09/24/25 09/24/25 Unknown History rivastigmine tartrate 1.5 mg 1.5 mg PO BID 09/24/25 09/24/25 09/23/25 History capsule Physical Exam Vital Signs and Narrative: Vital Signs: Last Vital Signs Temp 97.8 F 09/24/25 06:02 Pulse 59 09/24/25 06:14 Resp 15 09/24/25 06:02 BP 117/69 09/24/25 06:14 Pulse Ox 99 09/24/25 06:02 O2 Del Method Room Air 09/24/25 06:02 BMI result Body Mass Index 20.0 Results Labs 09/24/25 04:13 09/24/25 04:13 Labs: Laboratory Results - last 24 hr 09/24/25 09/24/25 04:13 04:37 MCV 93.5 MCH 31.6 MCHC 33.8 RDW 12.4 Plt Count 271 D MPV 11.7 Immature Gran % (Auto) 0.3 Neut % (Auto) 56.7 Lymph % (Auto) 29.9 Sebastian % (Auto) 7.5 Eos % (Auto) 5.1 H Baso % (Auto) 0.5 Lymph # (Auto) 2.4 Sebastian # (Auto) 0.6 Eos # (Auto) 0.4 Baso # (Auto) 0.0 Abs Immat Gran (auto) 0.02 Absolute Neuts (auto) 4.5 Absolute Nucleated RBC 0.000 Nucleated RBC % (auto) 0.0 Anion Gap 13 Estim Creat Clear Calc 49.3 Estimated GFR > 60 Random Glucose 119 H Calcium 8.9 Magnesium 2.1 Total Bilirubin 0.6 AST 23 ALT 6 Alkaline Phosphatase 101 Troponin I High Sens 7.4 Total Protein 6.7 Albumin 3.9 Lipase 40 Urine Color Yellow Urine Appearance Clear Urine pH 7.0 Ur Specific [place] 1.010 Urine Protein Negative Urine Glucose (UA) Negative Urine Ketones Negative Urine Blood Trace H Urine Nitrite Negative Ur Leukocyte Esterase Negative Urine RBC 0-2 Urine WBC 0-5 Ur Squamous Epith Cells 0-2 Urine Bacteria None Seen Hyaline Casts 0-2 Assessment and Plan (1) Orthostatic hypotension: Status: Acute Plan 75/m with parkinson?s disease here with fall and orthostatic hypotension Orthostatic hypotension with recurrent dizziness and fall, likely multifactorial in the setting of Parkinson?s disease?related autonomic dysfunction, possible volume depletion. Persistent orthostasis despite IV fluids raises concern for neurogenic orthostatic hypotension. Fall resulted in scalp laceration without intracranial injury or cervical spine fracture. Ongoing risk for recurrent falls. Continue IV fluids as needed; encourage adequate oral hydration. Check orthostatic vitals daily. Consider compression stockings/abdominal binder. If persistent and symptomatic, consider pharmacologic therapy (e.g., midodrine or fludrocortisone) Telemetry to rule out arrhythmia as possible cause of dizziness, less likely Fall / dizziness Fall precautions. Physical therapy and gait evaluation prior to dc Assist with ambulation; consider walker if not already used. Scalp laceration Local wound care. Monitor for bleeding or signs of infection. Parkinson?s disease [facility] Neurology input if symptoms persist. DVT Prophylaxis: Lovneox Full code Admit for continued management of symptomatic orthostatic hypotension and fall risk. Quality Stroke Does the patient have a stroke diagnosis?: No VTE Prior VTE?: No VTE Risk Level:: Medical - moderate - high VTE Device Contraindication: Treatment Not Indicated VTE Drug Contraindication: N/A - Med Ordered
--- NOTE | 2025-09-24 08:52 | HO.NURTONUR ---
Addendum entered by Tanya Corbin RN 09/24/25 14:52: 22g IV placed Right Forearm- NS running @125 ml/hr. One assist to commode at bedside. Swallows pills whole with water. Original Note: 75 y/o M, a/ox, Full Code Hx- LBD and Parkinsons Admit: Orthostatic [facility]ot[facility] Pt was ambulating to bathroom, felt dizzy and fell. +HS, -thinners, ?LOC- unable to remember events of the fall. Upon arrival to ED- lac noted to posterior scalp with bleeding controlled. Loy done by ED doc. Labs: Hgb 12.6, Hct 37.3, BUN 27 Reports: EKG- sinus mango (HR currently 50s-60s on monitor, asymptomatic), Cervical Spine CT- negative for acute fracture, Head CT- negative 18g IV Left Forearm- he got 1L NS, orthostatic vitals were positive. Currently has NS @125ml/hr running. Uses the urinal at bedside.
--- NOTE | 2025-09-24 10:18 | PC.NURSE ---
Pt attempted to get out of bed on own, difficulty redirecting patient back into bed. Multiple staff members present at bedside for assistance. Pt self removed IV- bleeding controlled, IV site dressed. Pt able to be redirected back into bed and repositioned with frequent redirection. Pt son updated on plan of care. MD Ratliff made aware of pt agitation with staff/self removing IV. Unable to obtain IV access at this time d/t pt agitation. Will try again when pt calm/cooperative with staff. Pt BP this AM 193/85- made aware of high BP. Call lin within reach, all needs met at this time.
--- NOTE | 2025-09-24 10:53 | PHA.MEDREC ---
Addendum entered by Douglas iNelsen 09/25/25 16:21: Discussed medications with son of pt at bedside. Son brought medication list and we compared what had been verified yesterday. All medications were correct, but time of administration for Losartan was changed from bedtime to daily, and the administration of the senna laxative was also changed from bedtime to daily. Addendum entered by Winter Baumann RPh 09/24/25 10:58: Reviewed by [facility] Original Note: Pharmacy Consult ? Medication Reconciliation Pharmacy has completed the medication reconciliation. Confirmed medication list with list from other facility. Nurse at other facility states that patient took all non-PRN medications yesterday.
[2025-09-25] VITALS (11 sets, daily range): BP systolic 110–184; BP diastolic 52–98; PULSE 54–96; RESP 16–20; TEMP 36.5–37.1; O2SAT 91–99
[2025-09-25] MEDS: 0.9 % Sodium Chloride Flush 3 ML SYRINGE IVFLUSH ×3 (09:25→22:25)
--- NOTE | 2025-09-25 10:52 | HO.PM.IMPN ---
Subjective Subjective Date of Service: 09/25/25 Interval History: F/u fall, orthostatic hypotension he's confused and difficult to understand, not sure if that his baseline is Physical Exam Vital Signs: Vital Signs: Last Vital Signs Temp 98.1 F 09/25/25 08:00 Pulse 59 09/25/25 08:00 Resp 18 09/25/25 03:10 BP 184/98 H 09/25/25 08:00 Pulse Ox 91 L 09/25/25 08:00 O2 Del Method Room Air 09/25/25 08:00 BMI result Body Mass Index 19.0 Objective Data Active Medications Acetaminophen (Acetaminophen 325 Mg Tablet) 650 mg PO Q6H PRN PRN Reason: Pain, Mild 1-3,fever,headache Acetaminophen (Acetaminophen 325 Mg Tablet) 650 mg PO Q6H PRN PRN Reason: Fever Or Pain Al Hydroxide/Mg Hydroxide (Magnesium Hydrox/Alum Hydrox 30 Ml Oral.Susp) 30 ml PO Q4H PRN PRN Reason: Heartburn Atorvastatin Calcium (Atorvastatin Calcium 40 Mg Tablet) 40 mg PO BEDTIME [facility] Last Admin: 09/24/25 21:28 Dose: 40 mg Documented By: MITCHELL Bisacodyl (Bisacodyl 10 Mg Supp.Rect) 10 mg MO DAILY PRN PRN Reason: Constipation Calcium Carbonate (Calcium Carbonate 750 Mg Tab.Chew) 750 mg PO Q4H PRN PRN Reason: Heartburn Carbidopa/Levodopa (Carbidopa/Levodopa 25/100 Tablet) 1 tab PO TID [facility] Last Admin: 09/25/25 09:17 Dose: 1 tab Documented By: LANIE Enoxaparin Sodium (Enoxaparin Sodium 40 Mg/0.4 Ml Syringe) 40 mg SUBCUT Q24H [facility] Last Admin: 09/25/25 09:19 Dose: 40 mg Documented By: LANIE Escitalopram Oxalate (Escitalopram Oxalate 5 Mg Tablet) 5 mg PO DAILY [facility] Last Admin: 09/25/25 09:17 Dose: 5 mg Documented By: LANIE Finasteride (Finasteride 5 Mg Tablet) 5 mg PO DAILY [facility] Last Admin: 09/25/25 09:17 Dose: 5 mg Documented By: LANIE Sodium Chloride (Ns) 1,000 mls @ 125 mls/hr IVCONT .Q8H [facility] Last Admin: 09/25/25 09:22 Dose: 125 mls/hr Documented By: LANIE Lidocaine (Lidocaine 4 % Patch Adh..Patch) 1 patch TRANSDERMA DAILY [facility]; Protocol Last Admin: 09/25/25 09:26 Dose: Not Given Documented By: LANIE Non-Admin Reason: denies pain Losartan Potassium (Losartan Potassium 25 Mg Tablet) 25 mg PO BEDTIME [facility]; Protocol Last Admin: 09/24/25 21:28 Dose: 25 mg Documented By: MITCHELL Magnesium Hydroxide (Milk Of Magnesia 30 Ml Oral.Susp) 30 ml PO DAILY PRN PRN Reason: Constipation Meclizine HCl (Meclizine Hcl 25 Mg Tablet) 25 mg PO Q8H PRN PRN Reason: Dizziness Melatonin (Melatonin 3 Mg Tablet) 6 mg PO BEDTIME PRN PRN Reason: Insomnia Non-Formulary Medication (Rasagiline) 1 mg PO DAILY [facility] Ondansetron HCl (Ondansetron Hcl 4 Mg/2 Ml Vial) 4 mg IVPUSH Q8H PRN PRN Reason: Nausea and Vomiting Quetiapine Fumarate (Quetiapine Fumarate 25 Mg Tablet) 25 mg PO BEDTIME [facility] Last Admin: 09/24/25 21:29 Dose: 25 mg Documented By: MITCHELL Rivastigmine Tartrate (Rivastigmine Tartrate 1.5 Mg Capsule) 1.5 mg PO BID [facility] Last Admin: 09/25/25 09:17 Dose: 1.5 mg Documented By: LANIE Senna (Sennosides 8.6 Mg Tablet) 17.2 mg PO BEDTIME [facility] Last Admin: 09/24/25 21:29 Dose: 17.2 mg Documented By: MITCHELL Sodium Chloride (0.9 % Sodium Chloride Flush 3 Ml Syringe) 3 ml IVFLUSH QSHIFT [facility] Last Admin: 09/25/25 09:25 Dose: 3 ml Documented By: LANIE Labs 09/24/25 04:13 09/24/25 04:13 Assessment and Plan (1) Orthostatic hypotension: Status: Acute Plan 75/m with parkinson?s disease here with fall and orthostatic hypotension Orthostatic hypotension with recurrent dizziness and fall, likely multifactorial in the setting of Parkinson?s disease?related autonomic dysfunction, possible volume depletion. Persistent orthostasis despite IV fluids raises concern for neurogenic orthostatic hypotension. Fall resulted in scalp laceration without intracranial injury or cervical spine fracture. Continue IV fluids as needed; encourage adequate oral hydration. Check orthostatic vitals daily. Consider compression stockings If persistent and symptomatic, consider pharmacologic therapy (e.g., midodrine or fludrocortisone) Telemetry to rule out arrhythmia as possible cause of dizziness, less likely Fall / dizziness Fall precautions. Physical therapy and gait evaluation prior to dc Assist with ambulation; consider walker if not already used. Scalp laceration Local wound care. Monitor for bleeding or signs of infection. Parkinson?s disease [facility] Neurology input if symptoms persist. DVT Prophylaxis: Lovneox Full code Admit for continued management of symptomatic orthostatic hypotension and fall risk. Quality Stroke Does the patient have a stroke diagnosis?: No VTE Prior VTE?: No VTE Risk Level:: Medical - moderate - high VTE Device Contraindication: Treatment Not Indicated VTE Drug Contraindication: N/A - Med Ordered
--- NOTE | 2025-09-25 13:28 | MHC.CM.PN ---
Addendum entered by Chayito Ku RN 09/25/25 13:37: IMM delivered. Original Note: CM assessment completed w/ son/HCP Luis M. Patient confused w/ sitter at bedside. [place] [facility] [place] [facility], where he was admitted 09/21 from [facility] after a fall. Lives in a home alone. Ambulates w/ a walker. [employer] services: [facility] [employer] 3x/day to administer meds and offer showers 2x/wk, SN visits 3x/wk. Son reports increased falls and confusion over last month. He is working closely w/ [facility]. PCP Reyna Zuniga [facility] HCP on file and verified. DP: Goal is return to [facility] via BLS. Son will talk to [facility] tomorrow and may request referrals to other facilities - he is aware that documented agitation may be a barrier to other bed offers and will not turn down [facility] bed unles another bed offer is obtained. CM will continue to follow.
--- NOTE | 2025-09-25 22:55 | PC.NURSE ---
refusing meds, states 'more or less when asking patient into his right ear hearing aid if he speaks [place] Island[place]. then starts speaking in Yoruba. jossue staffing consultant attempted, patient unable to answer appropriately. patient then expressed need to urinate, continent void to commode of CYU, per MD - prompt pt with meds again soon now that he has releived himself. fall prx and sitter in place
[2025-09-26] VITALS (10 sets, daily range): BP systolic 116–170; BP diastolic 68–92; PULSE 54–92; RESP 16–20; TEMP 36.4–37.2; O2SAT 92–100
--- NOTE | 2025-09-26 03:10 | PC.NURSE ---
briefly agitated, attempted to swing at [employer], appears that patient was triggered by new staff entering room stating to get out of my house. current yanira Palomares and this nurse able to verbally redirect and calm patient with text translation reorienting to place/time/situation and therapeutic verbal communication, remains in bed with fall prx in place
--- NOTE | 2025-09-26 09:59 | P.PNIM_ITS ---
Subjective Subjective Date of Service: 09/26/25 Interval History: F/u fall, orthostatic hypotension no new issues, has some basline confusion, Physical Exam 2 Vital Signs: Vital Signs: Last Vital Signs Temp 99.0 F 09/26/25 07:07 Pulse 64 09/26/25 07:07 Resp 20 09/26/25 07:07 BP 148/74 H 09/26/25 09:22 Pulse Ox 92 09/26/25 07:07 O2 Del Method Room Air 09/26/25 07:07 BMI result Body Mass Index 19.0 Objective Data Active Medications Acetaminophen (Acetaminophen 325 Mg Tablet) 650 mg PO Q6H PRN PRN Reason: Pain, Mild 1-3,fever,headache Last Admin: 09/25/25 22:24 Dose: 650 mg Documented By: NEREYDA Acetaminophen (Acetaminophen 325 Mg Tablet) 650 mg PO Q6H PRN PRN Reason: Fever Or Pain Al Hydroxide/Mg Hydroxide (Magnesium Hydrox/Alum Hydrox 30 Ml Oral.Susp) 30 ml PO Q4H PRN PRN Reason: Heartburn Atorvastatin Calcium (Atorvastatin Calcium 40 Mg Tablet) 40 mg PO BEDTIME [facility] Last Admin: 09/25/25 22:24 Dose: 40 mg Documented By: NEREYDA Bisacodyl (Bisacodyl 10 Mg Supp.Rect) 10 mg HI DAILY PRN PRN Reason: Constipation Calcium Carbonate (Calcium Carbonate 750 Mg Tab.Chew) 750 mg PO Q4H PRN PRN Reason: Heartburn Carbidopa/Levodopa (Carbidopa/Levodopa 25/100 Tablet) 1 tab PO TID [facility] Last Admin: 09/26/25 09:22 Dose: 1 tab Documented By: CASSIDY Enoxaparin Sodium (Enoxaparin Sodium 40 Mg/0.4 Ml Syringe) 40 mg SUBCUT Q24H [facility] Last Admin: 09/26/25 09:22 Dose: 40 mg Documented By: CASSIDY Escitalopram Oxalate (Escitalopram Oxalate 5 Mg Tablet) 5 mg PO DAILY [facility] Last Admin: 09/26/25 09:23 Dose: 5 mg Documented By: CASSIDY Finasteride (Finasteride 5 Mg Tablet) 5 mg PO DAILY [facility] Last Admin: 09/26/25 09:22 Dose: 5 mg Documented By: CASSIDY Lidocaine (Lidocaine 4 % Patch Adh..Patch) 1 patch TRANSDERMA DAILY [facility]; Protocol Last Admin: 09/26/25 09:23 Dose: Not Given Documented By: CASSIDY Non-Admin Reason: Patient Refused Losartan Potassium (Losartan Potassium 25 Mg Tablet) 25 mg PO DAILY [facility]; Protocol Last Admin: 09/26/25 09:22 Dose: 25 mg Documented By: CASSIDY Magnesium Hydroxide (Milk Of Magnesia 30 Ml Oral.Susp) 30 ml PO DAILY PRN PRN Reason: Constipation Meclizine HCl (Meclizine Hcl 25 Mg Tablet) 25 mg PO Q8H PRN PRN Reason: Dizziness Melatonin (Melatonin 3 Mg Tablet) 6 mg PO BEDTIME PRN PRN Reason: Insomnia Non-Formulary Medication (Rasagiline) 1 mg PO DAILY [facility] Ondansetron HCl (Ondansetron Hcl 4 Mg/2 Ml Vial) 4 mg IVPUSH Q8H PRN PRN Reason: Nausea and Vomiting Quetiapine Fumarate (Quetiapine Fumarate 25 Mg Tablet) 25 mg PO BEDTIME [facility] Last Admin: 09/25/25 22:25 Dose: 25 mg Documented By: NEREYDA Rivastigmine Tartrate (Rivastigmine Tartrate 1.5 Mg Capsule) 1.5 mg PO BID [facility] Last Admin: 09/26/25 09:22 Dose: 1.5 mg Documented By: CASSIDY Senna (Sennosides 8.6 Mg Tablet) 17.2 mg PO DAILY [facility] Last Admin: 09/26/25 09:23 Dose: 17.2 mg Documented By: CASSIDY Sodium Chloride (0.9 % Sodium Chloride Flush 3 Ml Syringe) 3 ml IVFLUSH QSHIFT [facility] Last Admin: 09/26/25 09:23 Dose: Not Given Documented By: CASSIDY Non-Admin Reason: IV Running Labs 09/24/25 04:13 09/24/25 04:13 Assessment and Plan (1) Orthostatic hypotension: Status: Acute Plan 75/m with parkinson?s disease here with fall and orthostatic hypotension Orthostatic hypotension with recurrent dizziness and fall, likely multifactorial in the setting of Parkinson?s disease?related autonomic dysfunction, possible volume depletion. Persistent orthostasis despite IV fluids raises concern for neurogenic orthostatic hypotension. Fall resulted in scalp laceration without intracranial injury or cervical spine fracture. Continue IV fluids as needed; encourage adequate oral hydration. Check orthostatic vitals daily. Consider compression stockings If persistent and symptomatic, consider pharmacologic therapy (e.g., midodrine or fludrocortisone) Telemetry to rule out arrhythmia as possible cause of dizziness, less likely Fall / dizziness Fall precautions. Physical therapy and gait evaluation prior to dc Assist with ambulation; consider walker if not already used. Scalp laceration Local wound care. Monitor for bleeding or signs of infection. Parkinson?s disease [facility] Neurology input if symptoms persist. DVT Prophylaxis: Lovneox Full code Admit for continued management of symptomatic orthostatic hypotension and fall risk. Quality Stroke Does the patient have a stroke diagnosis?: No VTE Prior VTE?: No VTE Risk Level:: Medical - moderate - high VTE Device Contraindication: Treatment Not Indicated VTE Drug Contraindication: N/A - Med Ordered
--- NOTE | 2025-09-26 13:39 | MHC.CM.PN ---
Pt. not yet medically cleared, DCP is return to [facility] where he was for STR.
[2025-09-26] MEDS: 0.9 % Sodium Chloride Flush 3 ML SYRINGE IVFLUSH ×2 (15:54→20:25)
[2025-09-27] VITALS (9 sets, daily range): BP systolic 120–180; BP diastolic 60–83; PULSE 52–61; RESP 16–18; TEMP 36.3–36.7; O2SAT 95–99
[2025-09-27] MEDS: Lidocaine 4 % Patch ADH..PATCH 1 PATCH TRANSDERMA (08:51)
[2025-09-27] MEDS: 0.9 % Sodium Chloride Flush 3 ML SYRINGE IVFLUSH ×3 (09:07→21:26)
--- NOTE | 2025-09-27 14:40 | P.PNIM_ITS ---
Subjective Subjective Date of Service: 09/27/25 Interval History: Feels well overall Good appetite overall Endorses persistent dizziness with changing position and standing. Patient has had multiple falls over the past few months, which represents progression of the patient's Parkinson's disease This was discussed extensively with the patient's son Review of Systems Review of Systems: Yes all other systems are reviewed and are negative Physical Exam 2 Exam: Exam: General: A&O x2, person and place, comfortable, no pain HEENT: Seborrheic dermatitis facial Cardiac: S1, S2 auscultated with no S3/4, no MRG. Well perfused. Respiratory: Normal breath sounds auscultated throughout all lung zones, without wheezing, rales. Normal rate. GI/ : No abdominal pain on palpation, no masses or distentions. MSK: Reduced muscular bulk in the upper and lower extremities bilaterally; bilateral pill-rolling tremulousness at rest Neurological: Normal neurological examination on overview, without obvious CN II-XII abnormalities. Vital Signs: Vital Signs: Last Vital Signs Temp 97.3 F 09/27/25 11:38 Pulse 58 09/27/25 13:05 Resp 18 09/27/25 11:38 BP 120/60 09/27/25 13:05 Pulse Ox 96 09/27/25 12:14 O2 Del Method Room Air 09/27/25 11:38 BMI result Body Mass Index 19.0 Objective Data Active Medications Acetaminophen (Acetaminophen 325 Mg Tablet) 650 mg PO Q6H PRN PRN Reason: Pain, Mild 1-3,fever,headache Last Admin: 09/25/25 22:24 Dose: 650 mg Documented By: NEREYDA Acetaminophen (Acetaminophen 325 Mg Tablet) 650 mg PO Q6H PRN PRN Reason: Fever Or Pain Al Hydroxide/Mg Hydroxide (Magnesium Hydrox/Alum Hydrox 30 Ml Oral.Susp) 30 ml PO Q4H PRN PRN Reason: Heartburn Atorvastatin Calcium (Atorvastatin Calcium 40 Mg Tablet) 40 mg PO BEDTIME [facility] Last Admin: 09/26/25 20:24 Dose: 40 mg Documented By: MITCHELL Bisacodyl (Bisacodyl 10 Mg Supp.Rect) 10 mg [place] DAILY PRN PRN Reason: Constipation Calcium Carbonate (Calcium Carbonate 750 Mg Tab.Chew) 750 mg PO Q4H PRN PRN Reason: Heartburn Carbidopa/Levodopa (Carbidopa/Levodopa 25/100 Tablet) 1 tab PO TID [facility] Last Admin: 09/27/25 08:50 Dose: 1 tab Documented By: BOWEN Enoxaparin Sodium (Enoxaparin Sodium 40 Mg/0.4 Ml Syringe) 40 mg SUBCUT Q24H [facility] Last Admin: 09/27/25 08:51 Dose: 40 mg Documented By: BOWEN Escitalopram Oxalate (Escitalopram Oxalate 5 Mg Tablet) 5 mg PO DAILY [facility] Last Admin: 09/27/25 08:50 Dose: 5 mg Documented By: BOWEN Finasteride (Finasteride 5 Mg Tablet) 5 mg PO DAILY [facility] Last Admin: 09/27/25 08:51 Dose: 5 mg Documented By: BOWEN Lidocaine (Lidocaine 4 % Patch Adh..Patch) 1 patch TRANSDERMA DAILY [facility]; Protocol Last Admin: 09/27/25 08:51 Dose: 1 patch Documented By: BOWEN Losartan Potassium (Losartan Potassium 25 Mg Tablet) 25 mg PO DAILY [facility]; Protocol Last Admin: 09/27/25 08:50 Dose: 25 mg Documented By: BOWEN Magnesium Hydroxide (Milk Of Magnesia 30 Ml Oral.Susp) 30 ml PO DAILY PRN PRN Reason: Constipation Meclizine HCl (Meclizine Hcl 25 Mg Tablet) 25 mg PO Q8H PRN PRN Reason: Dizziness Melatonin (Melatonin 3 Mg Tablet) 6 mg PO BEDTIME PRN PRN Reason: Insomnia Non-Formulary Medication (Rasagiline) 1 mg PO DAILY [facility] Ondansetron HCl (Ondansetron Hcl 4 Mg/2 Ml Vial) 4 mg IVPUSH Q8H PRN PRN Reason: Nausea and Vomiting Quetiapine Fumarate (Quetiapine Fumarate 25 Mg Tablet) 25 mg PO BEDTIME [facility] Last Admin: 09/26/25 20:24 Dose: 25 mg Documented By: MITCHELL Rivastigmine Tartrate (Rivastigmine Tartrate 1.5 Mg Capsule) 1.5 mg PO BID [facility] Last Admin: 09/27/25 08:50 Dose: 1.5 mg Documented By: BOWEN Senna (Sennosides 8.6 Mg Tablet) 17.2 mg PO DAILY [facility] Last Admin: 09/27/25 08:50 Dose: 17.2 mg Documented By: BOWEN Sodium Chloride (0.9 % Sodium Chloride Flush 3 Ml Syringe) 3 ml IVFLUSH QSHIFT [facility] Last Admin: 09/27/25 09:07 Dose: 3 ml Documented By: BOWEN Labs 09/24/25 04:13 09/24/25 04:13 Assessment and Plan (1) Benign essential hypertension: Status: Acute (2) Orthostatic hypotension: Status: Acute (3) Parkinson's disease: Status: Acute (4) Parkinson's disease without dyskinesia or fluctuating manifestations: Status: Acute (5) Tremor of both hands: Status: Acute (6) Autonomic dysfunction: Status: Acute Plan 75/m with parkinson?s disease presents with multiple falls, admitted with severe orthostatic hypotension pending further workup and management. Autonomic dysfunction Orthostatic hypotension Progressing Parkinson's disease Orthostatic hypotension with recurrent dizziness and fall, likely multifactorial in the setting of Parkinson?s disease?related autonomic dysfunction, possible volume depletion. Persistent orthostasis despite IV fluids raises concern for neurogenic orthostatic hypotension. Fall resulted in scalp laceration without intracranial injury or cervical spine fracture. Continue IV fluids as needed; encourage adequate oral hydration. Consider compression stockings If persistent and symptomatic, consider pharmacologic therapy (e.g., midodrine or fludrocortisone) Telemetry to rule out arrhythmia as possible cause of dizziness, less likely Continue levodopa/carbidopa Neurology consultation placed Consider nephrology consultation for initiation of fludrocortisone in setting of patient's orthostatic hypotension/autonomic dysfunction Check orthostatic vitals daily. Fall / dizziness Fall precautions. Physical therapy and gait evaluation prior to dc Assist with ambulation; consider walker if not already used. Scalp laceration Local wound care. Monitor for bleeding or signs of infection. DVT Prophylaxis: Lovneox Full code Admit for continued management of symptomatic orthostatic hypotension and fall risk. Extensive discussion was held with the patient's son Total time managing care of this patient today: 45 minutes. Quality Stroke Does the patient have a stroke diagnosis?: No VTE Prior VTE?: No VTE Risk Level:: Medical - moderate - high VTE Device Contraindication: Treatment Not Indicated VTE Drug Contraindication: N/A - Med Ordered
--- NOTE | 2025-09-27 15:41 | MHC.CM.PN ---
Updated PN and PT notes sent to [facility] SHANA Burns via fax: [phone]. [facility] phone # [phone], [facility] rec that son transport pt. back to SNF, as in the past pt. became very agitated in ambulance.
[2025-09-28] VITALS (11 sets, daily range): BP systolic 111–190; BP diastolic 59–98; PULSE 50–66; RESP 16–18; TEMP 36.4–36.6; O2SAT 96–99
[2025-09-28 08:49] LABS: MANUAL DIFF FLAG NO
[2025-09-28 08:52] LABS: Hematocrit 36.2 % (42.0-52.0); Hemoglobin 12.2 g/dl (14.0-18.0); Imm Gran Abs Auto 0.02 X10*3/uL (0.00-0.03); Imm Gran Pct Auto 0.3 % (0.0-0.4); Lymphocytes Absolute Auto 1.9 X10*3/uL (1.2-4.9); Mean Corpuscular HGB Conc 33.7 g/dl (31.0-36.0); Mean Corpuscular Hemoglobin 31.1 pg (27.0-33.0); Mean Corpuscular Volume 92.3 fL (80.0-98.0); NRBC Abs Auto 0.000 X10*3/uL (0.0-0.012); NRBC Pct Auto 0.0 /100WBC (0.0-0.2); Platelet Count 245 X10*3/uL (160-400); Red Blood Count 3.92 X10*6/uL (4.60-5.80); White Blood Count 6.1 X10*3/uL (4.8-10.8)
[2025-09-28] MEDS: Lidocaine 4 % Patch ADH..PATCH 1 PATCH TRANSDERMA (09:00)
[2025-09-28] MEDS: 0.9 % Sodium Chloride Flush 3 ML SYRINGE IVFLUSH ×3 (09:00→20:10)
--- NOTE | 2025-09-28 09:02 | PM.NEUROCN ---
History of Present Illness Data of Consult Service Date: 09/28/25 Primary Care Provider: Mikayla Angulo MD HPI Reason for consult: Dizziness, multiple falls, PD This is a 75y/o Right handed male diagnosed with Parkinsons disease for which she sees Dr. Jones. He now presents with postural dizziness, orthostatic hypotension and multiple falls in the last few months. He was admitted at [facility] [place] for hallucinations, agitation recently and found to be hypotensive. H his dose of carbidopa- levodopa 25/100 was reduced from 1-1/2 tablets 4 times a day to 1 t.i.d. they added quetiapine 25 mg qhs He was started on midodrine 5 mg t.i.d.. .Patient is also on blood pressure medicines currently losartan 25 mg a day. He also takes rasagiline 1 mg daily rivastigmine was started at 1.5 mg b.i.d. He was given a diagnosis of possible lewy body dementia. He is independent in all his ADLS.He has vivid dreams less than before -he has disrupted sleep . He 1st started noticing tremors - rest about 2-3 years ago L>R He was diagnosed with Parkinsons disease . He was started on carbidopa/levodopa and it helped. In summer 2022 - he had delirium , diagnosed with UTI.He was admitted at [facility], [place] , he was very confused and was told that he was sundowning. He saw after that and diagnosed with Diffuse Lewy body dementia. He describes dizziness on head movement and tilting his head back in bed as well as when he gets up and has difficulty describing it as vertigo or lightheadedness. He is also quite hard of hearing. There is evidence of mild dementia. [facility] Past Medical History Medical History Orthostatic hypotension Hallucinations Benign prostate hyperplasia Parkinson's disease without dyskinesia or fluctuating manifestations Erectile dysfunction Impaired fasting glucose Hearing impairment Parkinson's disease Pure hypercholesterolemia Benign essential hypertension Family History Family History Father No problems noted. Mother No problems noted. Surgical History Surgical History History of cochlear implant (~01/03/23) History of hernia surgery Social History Social History Household Members: None Housing: House Do you presently have visiting nurse or other home services: No Alcohol intake: current Alcohol intake frequency: holidays/special occasions only Alcohol type: beer Comment: 1:1 sitter 1500-19:00, not covered 19:0-23:00 due to staffing constraints Patient Tobacco Use Status: Former Tobacco user Tobacco use type: Cigarette Smoked in Last 30 Days: No e-Cigarette/Vaping Use: Never Used Second Hand Smoke Exposure: No Use of substances other than those prescribed or required for medical reasons: No Currently Displaying Signs/Symptoms of Drug Intoxication Withdrawal: No Have you been hit, kicked, punched, or otherwise hurt by someone within the past year? If so, by whom?: No Do you feel safe in your current relationship?: No Current Relationship Is there a partner from a previous relationship who is making you feel unsafe now?: No Are you made to feel afraid or neglected: No Advance Directives: No Advance Directives Information Provided: Yes Do you have a plan to hurt others: No Plan Recently lost weight without trying: Unsure How much weight loss: Unsure Eating poorly because of decreased appetite: Yes Nutrition screen score: 5 Nutrition Risks: Dental problems, Difficulty chewing and Poor intake 0-25% >4 days service: No Current occupational status: retired Cognitive needs: No Hearing needs: Yes (hearing aide) Vision needs: Yes (reading glasses) Meds Allergies Allergy/AdvReac Type Severity Reaction Status Date / Time No Known Allergies (No Known Allergy Verified 09/24/25 04:05 Allergies*) Active Medications: Current Medications Acetaminophen (Acetaminophen 325 Mg Tablet) 650 mg PO Q6H PRN PRN Reason: Pain, Mild 1-3,fever,headache Last Admin: 09/28/25 01:18 Dose: 650 mg Acetaminophen (Acetaminophen 325 Mg Tablet) 650 mg PO Q6H PRN PRN Reason: Fever Or Pain Al Hydroxide/Mg Hydroxide (Magnesium Hydrox/Alum Hydrox 30 Ml Oral.Susp) 30 ml PO Q4H PRN PRN Reason: Heartburn Amlodipine Besylate (Amlodipine Besylate 5 Mg Tablet) 5 mg PO DAILY [facility]; Protocol Last Admin: 09/28/25 08:54 Dose: 5 mg Atorvastatin Calcium (Atorvastatin Calcium 40 Mg Tablet) 40 mg PO BEDTIME [facility] Last Admin: 09/27/25 21:26 Dose: 40 mg Bisacodyl (Bisacodyl 10 Mg Supp.Rect) 10 mg [place] DAILY PRN PRN Reason: Constipation Calcium Carbonate (Calcium Carbonate 750 Mg Tab.Chew) 750 mg PO Q4H PRN PRN Reason: Heartburn Carbidopa/Levodopa (Carbidopa/Levodopa 25/100 Tablet) 1 tab PO TID [facility] Last Admin: 09/28/25 08:47 Dose: 1 tab Enoxaparin Sodium (Enoxaparin Sodium 40 Mg/0.4 Ml Syringe) 40 mg SUBCUT Q24H [facility] Last Admin: 09/28/25 08:55 Dose: 40 mg Escitalopram Oxalate (Escitalopram Oxalate 5 Mg Tablet) 5 mg PO DAILY [facility] Last Admin: 09/27/25 08:50 Dose: 5 mg Finasteride (Finasteride 5 Mg Tablet) 5 mg PO DAILY [facility] Last Admin: 09/28/25 08:54 Dose: 5 mg Lidocaine (Lidocaine 4 % Patch Adh..Patch) 1 patch TRANSDERMA DAILY [facility]; Protocol Last Admin: 09/28/25 09:00 Dose: 1 patch Losartan Potassium (Losartan Potassium 25 Mg Tablet) 25 mg PO DAILY [facility]; Protocol Last Admin: 09/28/25 08:46 Dose: 25 mg Magnesium Hydroxide (Milk Of Magnesia 30 Ml Oral.Susp) 30 ml PO DAILY PRN PRN Reason: Constipation Meclizine HCl (Meclizine Hcl 25 Mg Tablet) 25 mg PO Q8H PRN PRN Reason: Dizziness Melatonin (Melatonin 3 Mg Tablet) 6 mg PO BEDTIME PRN PRN Reason: Insomnia Non-Formulary Medication (Rasagiline) 1 mg PO DAILY [facility] Ondansetron HCl (Ondansetron Hcl 4 Mg/2 Ml Vial) 4 mg IVPUSH Q8H PRN PRN Reason: Nausea and Vomiting Quetiapine Fumarate (Quetiapine Fumarate 25 Mg Tablet) 25 mg PO BEDTIME [facility] Last Admin: 09/27/25 21:26 Dose: 25 mg Rivastigmine Tartrate (Rivastigmine Tartrate 1.5 Mg Capsule) 1.5 mg PO BID [facility] Last Admin: 09/28/25 08:48 Dose: 1.5 mg Senna (Sennosides 8.6 Mg Tablet) 17.2 mg PO DAILY [facility] Last Admin: 09/28/25 08:47 Dose: 17.2 mg Sodium Chloride (0.9 % Sodium Chloride Flush 3 Ml Syringe) 3 ml IVFLUSH QSMIFT [facility] Last Admin: 09/28/25 09:00 Dose: 3 ml Home Medications ?Medication ?Instructions ?Recorded ?Confirmed ?Last Taken ?Type quetiapine 25 mg tablet 25 mg PO BEDTIME 12/20/24 09/24/25 09/23/25 History finasteride 5 mg tablet 5 mg PO DAILY 08/23/25 09/24/25 09/23/25 History midodrine 5 mg tablet 5 mg PO TID 08/23/25 09/24/25 09/23/25 History acetaminophen 325 mg tablet 650 mg PO Q6H PRN Fever Or Pain 09/24/25 09/24/25 Unknown History bisacodyl 10 mg rectal suppository 10 mg [place] DAILY PRN Constipation 09/24/25 09/24/25 Unknown History lidocaine 5 % topical patch 1 patch topical DAILY 09/24/25 09/24/25 09/23/25 History losartan 25 mg tablet 25 mg PO DAILY 09/24/25 09/25/25 09/23/25 History magnesium hydroxide 400 mg/5 mL 30 ml PO DAILY PRN Constipation 09/24/25 09/24/25 Unknown History oral suspension (Milk of Magnesia) meclizine 25 mg tablet 25 mg PO Q8H PRN Dizziness 09/24/25 09/24/25 Unknown History rivastigmine tartrate 1.5 mg 1.5 mg PO BID 09/24/25 09/24/25 09/23/25 History capsule sennosides 8.6 mg tablet 17.2 mg PO DAILY 09/25/25 09/25/25 09/23/25 History Physical Exam Vital Signs: Vital Signs: Last Vital Signs Temp 97.5 F 09/28/25 07:57 Pulse 53 09/28/25 07:57 Resp 16 09/28/25 07:57 BP 148/82 H 09/28/25 07:57 Pulse Ox 96 09/28/25 07:57 O2 Del Method Room Air 09/28/25 07:57 O2 Flow Rate 97 09/28/25 00:00 BMI result Body Mass Index 19.0 Neuro: Other: He is alert and oriented to person month and year and thought it was [place] rather than the . He was not sure of the hospital but he thought it was in [place]. He follows commands. Facial expression is minimally diminished. He has resting tremors of his right greater than left hand with some increase in tone. Otherwise nonfocal examination. Plantar responses are flexor. Neck is supple. Results Labs 09/28/25 08:41 09/28/25 08:41 Labs: Short CBC 09/28/25 Range/Units 08:41 WBC 6.1 (4.8-10.8) X10*3/uL Hgb 12.2 L (14.0-18.0) g/dl Hct 36.2 L (42.0-52.0) % Plt Count 245 (160-400) X10*3/uL Assessment and Plan (1) Parkinson's disease: Qualifiers: Dyskinesia presence: with dyskinesia Fluctuating manifestations: with fluctuating manifestations Qualified Code(s): G20.B2 - Parkinson's disease with dyskinesia, with fluctuations Status: Acute He seems to be stable on his current dose of carbidopa-levodopa 25/100 t.i.d. and rasagiline 1 mg. The quetiapine 25 mg a day has controlled his hallucinations and probably that was also helped by reduction of his carbidopa levodopa. I would continue the current dosage. (2) Autonomic dysfunction: Status: Acute His dizziness is probably from orthostatic hypotension which could be multifactorial related to Parkinson's disease as well as some dehydration plus the fact that he is still on losartan 25 mg a day. Recommendation: Stop losartan. Continue midodrine 5 mg t.i.d.. Hydration. If he still has orthostatic hypotension in spite of this, would consider adding fludrocortisone 0.1 mg every other day. There is also some suggestion that there may be some vestibular dysfunction because he also has a slight vertiginous episode with head movement. He could be given meclizine 12.5 mg b.i.d. for a couple of days to see if that would help. Procedures Date of Service Date of Service: 09/28/25
[2025-09-28 09:06] LABS: Anion Gap 9 (12-20); Blood Urea Nitrogen 23 mg/dL (9-16); Calcium 8.7 mg/dL (8.4-10.2); Carbon Dioxide 26 mmol/L (22-29); Chloride 108 mmol/L (96-108); Creatinine Clr Calc Pharmacy 49.6; Estimated Glomerular Filt Rate > 60; Potassium 3.7 mmol/L (3.3-5.1); Sodium 139 mmol/L (135-145)
--- NOTE | 2025-09-28 12:39 | MHC.CM.PN ---
EMR REVIEWED, PT W/ORTHOSTATIC HYPOTENSION/PROGRESSING PARKINSONS, PER HOSPITALIST PT NOT MEDICALLY CLEARED AND WILL NEED NEURO/NEPHRO, P.T. RECOMMENDING STR HOWEVER PT WILL NEED TO BE OFF SITTER 24-48 HRS PRIOR TO DC, CM WILL CONT TO FOLLOW DC NEES.
--- NOTE | 2025-09-28 13:49 | HO.PM.IMPN ---
Subjective Subjective Date of Service: 09/28/25 Interval History: no new complaionts or issues to report today eating and drinking well nephrology evaluated patient - reccs greatly appreciated to be started on fludrocortison .1mg Physical Exam Exam: Exam: General: A&O x2, person and place, comfortable, no pain HEENT: Seborrheic dermatitis facial Cardiac: S1, S2 auscultated with no S3/4, no MRG. Well perfused. Respiratory: Normal breath sounds auscultated throughout all lung zones, without wheezing, rales. Normal rate. GI/ : No abdominal pain on palpation, no masses or distentions. MSK: Reduced muscular bulk in the upper and lower extremities bilaterally; bilateral pill-rolling tremulousness at rest Neurological: Normal neurological examination on overview, without obvious CN II-XII abnormalities. Vital Signs: Vital Signs: Last Vital Signs Temp 97.8 F 09/28/25 11:04 Pulse 54 09/28/25 11:04 Resp 16 09/28/25 11:04 BP 151/69 H 09/28/25 11:04 Pulse Ox 99 09/28/25 11:04 O2 Del Method Room Air 09/28/25 11:04 O2 Flow Rate 97 09/28/25 00:00 BMI result Body Mass Index 19.0 Objective Data Active Medications Acetaminophen (Acetaminophen 325 Mg Tablet) 650 mg PO Q6H PRN PRN Reason: Pain, Mild 1-3,fever,headache Last Admin: 09/28/25 12:55 Dose: 650 mg Documented By: DHRUV Acetaminophen (Acetaminophen 325 Mg Tablet) 650 mg PO Q6H PRN PRN Reason: Fever Or Pain Al Hydroxide/Mg Hydroxide (Magnesium Hydrox/Alum Hydrox 30 Ml Oral.Susp) 30 ml PO Q4H PRN PRN Reason: Heartburn Amlodipine Besylate (Amlodipine Besylate 5 Mg Tablet) 5 mg PO DAILY [facility]; Protocol Last Admin: 09/28/25 08:54 Dose: 5 mg Documented By: DHRUV Atorvastatin Calcium (Atorvastatin Calcium 40 Mg Tablet) 40 mg PO BEDTIME [facility] Last Admin: 09/27/25 21:26 Dose: 40 mg Documented By: GLORIA Bisacodyl (Bisacodyl 10 Mg Supp.Rect) 10 mg [place] DAILY PRN PRN Reason: Constipation Calcium Carbonate (Calcium Carbonate 750 Mg Tab.Chew) 750 mg PO Q4H PRN PRN Reason: Heartburn Carbidopa/Levodopa (Carbidopa/Levodopa 25/100 Tablet) 1 tab PO TID [facility] Last Admin: 09/28/25 08:47 Dose: 1 tab Documented By: DHRUV Enoxaparin Sodium (Enoxaparin Sodium 40 Mg/0.4 Ml Syringe) 40 mg SUBCUT Q24H [facility] Last Admin: 09/28/25 08:55 Dose: 40 mg Documented By: DHRUV Escitalopram Oxalate (Escitalopram Oxalate 5 Mg Tablet) 5 mg PO DAILY [facility] Last Admin: 09/28/25 10:25 Dose: 5 mg Documented By: DHRUV Finasteride (Finasteride 5 Mg Tablet) 5 mg PO DAILY [facility] Last Admin: 09/28/25 08:54 Dose: 5 mg Documented By: DHRUV Fludrocortisone Acetate (Fludrocortisone Acetate 0.1 Mg Tablet) 0.1 mg PO DAILY [facility] Last Admin: 09/28/25 12:57 Dose: 0.1 mg Documented By: DHRUV Lidocaine (Lidocaine 4 % Patch Adh..Patch) 1 patch TRANSDERMA DAILY [facility]; Protocol Last Admin: 09/28/25 09:00 Dose: 1 patch Documented By: DHRUV Losartan Potassium (Losartan Potassium 25 Mg Tablet) 25 mg PO DAILY [facility]; Protocol Last Admin: 09/28/25 08:46 Dose: 25 mg Documented By: DHRUV Magnesium Hydroxide (Milk Of Magnesia 30 Ml Oral.Susp) 30 ml PO DAILY PRN PRN Reason: Constipation Meclizine HCl (Meclizine Hcl 25 Mg Tablet) 25 mg PO Q8H PRN PRN Reason: Dizziness Melatonin (Melatonin 3 Mg Tablet) 6 mg PO BEDTIME PRN PRN Reason: Insomnia Non-Formulary Medication (Rasagiline) 1 mg PO DAILY [facility] Ondansetron HCl (Ondansetron Hcl 4 Mg/2 Ml Vial) 4 mg IVPUSH Q8H PRN PRN Reason: Nausea and Vomiting Quetiapine Fumarate (Quetiapine Fumarate 25 Mg Tablet) 25 mg PO BEDTIME [facility] Last Admin: 09/27/25 21:26 Dose: 25 mg Documented By: GLORIA Rivastigmine Tartrate (Rivastigmine Tartrate 1.5 Mg Capsule) 1.5 mg PO BID [facility] Last Admin: 09/28/25 08:48 Dose: 1.5 mg Documented By: DHRUV Senna (Sennosides 8.6 Mg Tablet) 17.2 mg PO DAILY [facility] Last Admin: 09/28/25 08:47 Dose: 17.2 mg Documented By: DHRUV Sodium Chloride (0.9 % Sodium Chloride Flush 3 Ml Syringe) 3 ml IVFLUSH QSHIFT [facility] Last Admin: 09/28/25 09:00 Dose: 3 ml Documented By: DHRUV Labs 09/28/25 08:41 09/28/25 08:41 Labs: Laboratory Results - last 24 hr 09/28/25 08:41 MCV 92.3 MCH 31.1 MCHC 33.7 RDW 12.6 Plt Count 245 MPV 11.3 Immature Gran % (Auto) 0.3 Neut % (Auto) 52.5 Lymph % (Auto) 31.8 [place] % (Auto) 7.7 Eos % (Auto) 7.4 H Baso % (Auto) 0.3 Lymph # (Auto) 1.9 [place] # (Auto) 0.5 Eos # (Auto) 0.5 H Baso # (Auto) 0.0 Abs Immat Gran (auto) 0.02 Absolute Neuts (auto) 3.2 Absolute Nucleated RBC 0.000 Nucleated RBC % (auto) 0.0 Anion Gap 9 L Estim Creat Clear Calc 49.6 Estimated GFR > 60 Random Glucose 105 Calcium 8.7 Assessment and Plan (1) Benign essential hypertension: Status: Acute (2) Orthostatic hypotension: Status: Acute (3) Anxiety: Status: Acute (4) Sepsis due to urinary tract infection: Status: Acute (5) Laceration of head: Status: Acute (6) Parkinson's disease without dyskinesia or fluctuating manifestations: Status: Acute (7) Parkinson's disease: Status: Acute (8) Autonomic dysfunction: Status: Acute Plan 75/m with parkinson?s disease presents with multiple falls, admitted with severe orthostatic hypotension pending further workup and management. Autonomic dysfunction Orthostatic hypotension Progressing Parkinson's disease Orthostatic hypotension with recurrent dizziness and fall, likely multifactorial in the setting of Parkinson?s disease?related autonomic dysfunction, possible volume depletion. Persistent orthostasis despite IV fluids raises concern for neurogenic orthostatic hypotension. Fall resulted in scalp laceration without intracranial injury or cervical spine fracture. Continue IV fluids as needed; encourage adequate oral hydration. Consider compression stockings If persistent and symptomatic, consider pharmacologic therapy (e.g., midodrine or fludrocortisone) Telemetry to rule out arrhythmia as possible cause of dizziness, less likely Continue levodopa/carbidopa Neurology consultation placed Consider nephrology consultation for initiation of fludrocortisone in setting of patient's orthostatic hypotension/autonomic dysfunction Check orthostatic vitals daily. Nephrology reccs greatly appreciated - to start fludrocortisone 0.1mg OD PO Fall / dizziness Fall precautions. Physical therapy and gait evaluation prior to dc Assist with ambulation; consider walker if not already used. Scalp laceration Local wound care. Monitor for bleeding or signs of infection. DVT Prophylaxis: Lovneox Full code Admit for continued management of symptomatic orthostatic hypotension and fall risk. Extensive discussion was held with the patient's son Total time managing care of this patient today: 35 minutes. Quality Stroke Does the patient have a stroke diagnosis?: No VTE Prior VTE?: No VTE Risk Level:: Medical - moderate - high VTE Device Contraindication: Treatment Not Indicated VTE Drug Contraindication: N/A - Med Ordered
--- NOTE | 2025-09-28 15:51 | P.CONNP_ITS ---
History of Present Illness Reason for Consult Consult date: 09/28/25 Chief Complaint Chief complaint: orthostatic hypotension syncope History of Present Illness Narrative: 75-year-old gentleman with past medical history of Parkinson's disease, Lewy body dementia is admitted to the hospital due to multiple falls. Was found to be having orthostatic hypotension, so nephrology is consulted Review of Systems Review of Systems Const : no body aches, no chills, no excessive sweating and no fatigue Eyes: no blurry vision and no change in vision ENT: no bleeding gums and no change in voice, no dizziness Card: no chest pain, no shortness of breath, no orthopnea, no PND Resp: no cough, no excessive phlegm production, no SOB GI: no abdominal pain and no nausea, no vomiting : no hematuria, no urinary frequency and no difficulty voiding Musc: no abnormal gait, no bone pain Neuro: + abnormal movements, no weakness, no dizziness, +abnormal gait and + behavioral changes Psych: no behavioral changes and no change in appetite Endo: no change in body appearance, no cold intolerance, no excessive sweating and no fatigue PMFSH Past Medical History Medical History Orthostatic hypotension Hallucinations Benign prostate hyperplasia Parkinson's disease without dyskinesia or fluctuating manifestations Erectile dysfunction Impaired fasting glucose Hearing impairment Parkinson's disease Pure hypercholesterolemia Benign essential hypertension Family History Family History Father No problems noted. Mother No problems noted. Surgical History Surgical History History of cochlear implant (~01/03/23) History of hernia surgery Social History Social History Household Members: None Housing: House Do you presently have visiting nurse or other home services: No Alcohol intake: current Alcohol intake frequency: holidays/special occasions only Alcohol type: beer Comment: 1:1 sitter 1500-19:00, not covered 19:0-23:00 due to staffing constraints Patient Tobacco Use Status: Former Tobacco user Tobacco use type: Cigarette Smoked in Last 30 Days: No e-Cigarette/Vaping Use: Never Used Second Hand Smoke Exposure: No Use of substances other than those prescribed or required for medical reasons: No Currently Displaying Signs/Symptoms of Drug Intoxication Withdrawal: No Have you been hit, kicked, punched, or otherwise hurt by someone within the past year? If so, by whom?: No Do you feel safe in your current relationship?: No Current Relationship Is there a partner from a previous relationship who is making you feel unsafe now?: No Are you made to feel afraid or neglected: No Advance Directives: No Advance Directives Information Provided: Yes Do you have a plan to hurt others: No Plan Recently lost weight without trying: Unsure How much weight loss: Unsure Eating poorly because of decreased appetite: Yes Nutrition screen score: 5 Nutrition Risks: Dental problems, Difficulty chewing and Poor intake 0-25% >4 days service: No Current occupational status: retired Cognitive needs: No Hearing needs: Yes (hearing aide) Vision needs: Yes (reading glasses) Meds Allergies Allergy/AdvReac Type Severity Reaction Status Date / Time No Known Allergies (No Known Allergy Verified 09/24/25 04:05 Allergies*) Active Medications: Current Medications Acetaminophen (Acetaminophen 325 Mg Tablet) 650 mg PO Q6H PRN PRN Reason: Pain, Mild 1-3,fever,headache Last Admin: 09/28/25 12:55 Dose: 650 mg Acetaminophen (Acetaminophen 325 Mg Tablet) 650 mg PO Q6H PRN PRN Reason: Fever Or Pain Al Hydroxide/Mg Hydroxide (Magnesium Hydrox/Alum Hydrox 30 Ml Oral.Susp) 30 ml PO Q4H PRN PRN Reason: Heartburn Amlodipine Besylate (Amlodipine Besylate 5 Mg Tablet) 5 mg PO DAILY [facility]; Protocol Last Admin: 09/28/25 08:54 Dose: 5 mg Atorvastatin Calcium (Atorvastatin Calcium 40 Mg Tablet) 40 mg PO BEDTIME [facility] Last Admin: 09/27/25 21:26 Dose: 40 mg Bisacodyl (Bisacodyl 10 Mg Supp.Rect) 10 mg [place] DAILY PRN PRN Reason: Constipation Calcium Carbonate (Calcium Carbonate 750 Mg Tab.Chew) 750 mg PO Q4H PRN PRN Reason: Heartburn Carbidopa/Levodopa (Carbidopa/Levodopa 25/100 Tablet) 1 tab PO TID [facility] Last Admin: 09/28/25 14:53 Dose: 1 tab Enoxaparin Sodium (Enoxaparin Sodium 40 Mg/0.4 Ml Syringe) 40 mg SUBCUT Q24H [facility] Last Admin: 09/28/25 08:55 Dose: 40 mg Escitalopram Oxalate (Escitalopram Oxalate 5 Mg Tablet) 5 mg PO DAILY [facility] Last Admin: 09/28/25 10:25 Dose: 5 mg Finasteride (Finasteride 5 Mg Tablet) 5 mg PO DAILY [facility] Last Admin: 09/28/25 08:54 Dose: 5 mg Fludrocortisone Acetate (Fludrocortisone Acetate 0.1 Mg Tablet) 0.1 mg PO DAILY [facility] Last Admin: 09/28/25 12:57 Dose: 0.1 mg Lidocaine (Lidocaine 4 % Patch Adh..Patch) 1 patch TRANSDERMA DAILY [facility]; Protocol Last Admin: 09/28/25 09:00 Dose: 1 patch Losartan Potassium (Losartan Potassium 25 Mg Tablet) 25 mg PO DAILY [facility]; Protocol Last Admin: 09/28/25 08:46 Dose: 25 mg Magnesium Hydroxide (Milk Of Magnesia 30 Ml Oral.Susp) 30 ml PO DAILY PRN PRN Reason: Constipation Meclizine HCl (Meclizine Hcl 25 Mg Tablet) 25 mg PO Q8H PRN PRN Reason: Dizziness Melatonin (Melatonin 3 Mg Tablet) 6 mg PO BEDTIME PRN PRN Reason: Insomnia Non-Formulary Medication (Rasagiline) 1 mg PO DAILY [facility] Ondansetron HCl (Ondansetron Hcl 4 Mg/2 Ml Vial) 4 mg IVPUSH Q8H PRN PRN Reason: Nausea and Vomiting Quetiapine Fumarate (Quetiapine Fumarate 25 Mg Tablet) 25 mg PO BEDTIME [facility] Last Admin: 09/27/25 21:26 Dose: 25 mg Rivastigmine Tartrate (Rivastigmine Tartrate 1.5 Mg Capsule) 1.5 mg PO BID [facility] Last Admin: 09/28/25 08:48 Dose: 1.5 mg Senna (Sennosides 8.6 Mg Tablet) 17.2 mg PO DAILY [facility] Last Admin: 09/28/25 08:47 Dose: 17.2 mg Sodium Chloride (0.9 % Sodium Chloride Flush 3 Ml Syringe) 3 ml IVFLUSH QSHIFT [facility] Last Admin: 09/28/25 14:54 Dose: 3 ml Home Medications ?Medication ?Instructions ?Recorded ?Confirmed ?Last Taken ?Type quetiapine 25 mg tablet 25 mg PO BEDTIME 12/20/2409/23/25 History finasteride 5 mg tablet 5 mg PO DAILY 08/23/2509/2409/23/25 History midodrine 5 mg tablet 5 mg PO TID 08/23/25 5 09/23/25 History acetaminophen 325 mg tablet 650 mg PO Q6H PRN Fever Or Pain 09/24/25 09/24/25 Unknown History bisacodyl 10 mg rectal suppository 10 mg [place] DAILY PRN Constipation 09/24/25 09/24/25 Unknown History lidocaine 5 % topical patch 1 patch topical DAILY 09/0609/24/25 09/23/25 History losartan 25 mg tablet 25 mg PO DAILY 09/24/2509/0609/23/25 History magnesium hydroxide 400 mg/5 mL 30 ml PO DAILY PRN Con stipation 09/24/25 09/24/25 Unknown History oral suspension (Milk of Magnesia) meclizine 25 mg tablet 25 mg PO Q8H PRN Dizziness 1 11/25/24 09/24/25 Unknown History rivastigmine tartrate 1.5 mg 1.5 mg PO BID 09/24/2509/23/25 History capsule sennosides 8.6 mg tablet 17.2 mg PO DAILY 09/25/2509/23/25 History Physical Exam Vital Signs: Last Vital Signs Temp 97.9 F 09/28/25 15:39 Pulse 61 09/28/25 15:39 Resp 16 09/28/25 15:39 BP 147/65 H 09/28/25 15:39 Pulse Ox 99 09/28/25 15:39 O2 Del Method Room Air 09/28/25 15:39 O2 Flow Rate 97 09/28/25 00:00 BMI result Body Mass Index 19.0 General: not in any acute distress, flat affect Nutritional Appearance: well nourished and overweight Eyes: appearance normal, both eyes and all related structures; Alignment and Position: alignment normal and position normal Neck: No lymphadenopathy, no thyromegaly Resp: bilateral air entry equal, no added sounds present Cardio: Regular rate, regular rhythm; Heart sounds: S1 normal heart sound present and S2 normal heart sound present GI: soft, nontender, no guarding, no hepatosplenomegaly : bladder normal to inspection, bladder normal to palpation, no renal angle tenderness Skin: no rashes or lesions noted and elasticity normal Neuro: alert, oriented x 3, moves all extremities Results Lab Results 09/28/25 08:41 09/28/25 08:41 Lab results: Chemistry 09/28/25 08:41 Sodium 139 Potassium 3.7 Carbon Dioxide 26 BUN 23 H Creatinine 1.03 Calcium 8.7 Hematology 09/28/25 08:41 WBC 6.1 Hgb 12.2 L Plt Count 245 Assessment and Plan (1) Orthostatic hypotension: Status: Acute (2) Parkinson's disease: Qualifiers: Dyskinesia presence: with dyskinesia Fluctuating manifestations: with fluctuating manifestations Qualified Code(s): G20.B2 - Parkinson's disease with dyskinesia, with fluctuations Status: Acute Plan Orthostatic hypotension: Secondary to Parkinson's disease, with drop in systolic blood pressures over 40- 60 mmHg. Given the severity of drop in systolic blood pressures it is unlikely that nonpharmacological measures med completely treat, so we will add fludrocortisone 0.1 mg daily. Explained the family about the possible side effects including edema and supine hypertension. We will look for the effects of fludrocortisone tomorrow and we will adjust accordingly if needed. Also advised the patient to take a lot of time before getting up from bed, sit on the edge of the bed for few minutes and then slowly stand up. Use urinals bedside. Compression stockings would also help. Avoid hot showers, alcohol or large meals. Procedures Date of Service Date of Service: 09/28/25
--- NOTE | 2025-09-28 17:19 | PC.NURSE ---
Orthostatic vitals taken on patient this afternoon, about 5 hours after first administration of Florinef. Tech noted that pt became dizzy after about 90 seconds of standing. Son had reported earlier that, prior to admit, pt usually became symptomatic and prone to falling after walking for a couple of minutes. Lying - 160/75, HR 59 Sitting - 111/59, HR 58 Standing - 131/83, HR 66
[2025-09-29 03:19] VITALS: BP 135/59; PULSE 51; RESP 18; TEMP 36.9; O2SAT 99
[2025-09-29 07:38] VITALS: BP 119/73; PULSE 58; RESP 18; TEMP 36.3; O2SAT 95
[2025-09-29] MEDS: 0.9 % Sodium Chloride Flush 3 ML SYRINGE IVFLUSH ×3 (10:40→22:30)
[2025-09-29 11:33] VITALS: BP 122/62; PULSE 60; RESP 18; TEMP 36.2; O2SAT 96
--- NOTE | 2025-09-29 11:49 | HO.PM.IMPN ---
Subjective Subjective Date of Service: 09/29/25 Interval History: No new issues today On fludrocortisone currently - tolerating well Orthostatics to be performed Review of Systems Review of Systems: Yes all other systems are reviewed and are negative Physical Exam Exam: Exam: General: A&O x3 comfortable, no pain HEENT: Seborrheic dermatitis facial Cardiac: S1, S2 auscultated with no S3/4, no MRG. Well perfused. Respiratory: Normal breath sounds auscultated throughout all lung zones, without wheezing, rales. Normal rate. GI/ : No abdominal pain on palpation, no masses or distentions. MSK: Reduced muscular bulk in the upper and lower extremities bilaterally; bilateral pill-rolling tremulousness at rest Neurological: Normal neurological examination on overview, without obvious CN II-XII abnormalities. Vital Signs: Vital Signs: Last Vital Signs Temp 97.2 F 09/29/25 11:33 Pulse 60 09/29/25 11:33 Resp 18 09/29/25 11:33 BP 122/62 09/29/25 11:33 Pulse Ox 96 09/29/25 11:33 O2 Del Method Room Air 09/29/25 11:33 O2 Flow Rate 97 09/28/25 00:00 BMI result Body Mass Index 19.0 Objective Data Active Medications Acetaminophen (Acetaminophen 325 Mg Tablet) 650 mg PO Q6H PRN PRN Reason: Pain, Mild 1-3,fever,headache Last Admin: 09/28/25 12:55 Dose: 650 mg Documented By: DHRUV Acetaminophen (Acetaminophen 325 Mg Tablet) 650 mg PO Q6H PRN PRN Reason: Fever Or Pain Al Hydroxide/Mg Hydroxide (Magnesium Hydrox/Alum Hydrox 30 Ml Oral.Susp) 30 ml PO Q4H PRN PRN Reason: Heartburn Amlodipine Besylate (Amlodipine Besylate 5 Mg Tablet) 5 mg PO DAILY [facility]; Protocol Last Admin: 09/29/25 10:41 Dose: 5 mg Documented By: CURTIS Atorvastatin Calcium (Atorvastatin Calcium 40 Mg Tablet) 40 mg PO BEDTIME [facility] Last Admin: 09/28/25 20:10 Dose: 40 mg Documented By: GLORIA Bisacodyl (Bisacodyl 10 Mg Supp.Rect) 10 mg [place] DAILY PRN PRN Reason: Constipation Calcium Carbonate (Calcium Carbonate 750 Mg Tab.Chew) 750 mg PO Q4H PRN PRN Reason: Heartburn Carbidopa/Levodopa (Carbidopa/Levodopa 25/100 Tablet) 1 tab PO TID [facility] Last Admin: 09/29/25 10:41 Dose: 1 tab Documented By: CURTIS Enoxaparin Sodium (Enoxaparin Sodium 40 Mg/0.4 Ml Syringe) 40 mg SUBCUT Q24H [facility] Last Admin: 09/29/25 10:48 Dose: Not Given Documented By: CURTIS Non-Admin Reason: Patient Refused Escitalopram Oxalate (Escitalopram Oxalate 5 Mg Tablet) 5 mg PO DAILY [facility] Last Admin: 09/29/25 10:40 Dose: 5 mg Documented By: CURTIS Finasteride (Finasteride 5 Mg Tablet) 5 mg PO DAILY [facility] Last Admin: 09/29/25 10:42 Dose: 5 mg Documented By: CURTIS Fludrocortisone Acetate (Fludrocortisone Acetate 0.1 Mg Tablet) 0.1 mg PO DAILY [facility] Last Admin: 09/29/25 10:41 Dose: 0.1 mg Documented By: CURTIS Lidocaine (Lidocaine 4 % Patch Adh..Patch) 1 patch TRANSDERMA DAILY [facility]; Protocol Last Admin: 09/29/25 10:49 Dose: Not Given Documented By: CURTIS Non-Admin Reason: Patient Refused Losartan Potassium (Losartan Potassium 25 Mg Tablet) 25 mg PO DAILY [facility]; Protocol Last Admin: 09/29/25 10:40 Dose: 25 mg Documented By: CURTIS Magnesium Hydroxide (Milk Of Magnesia 30 Ml Oral.Susp) 30 ml PO DAILY PRN PRN Reason: Constipation Meclizine HCl (Meclizine Hcl 25 Mg Tablet) 25 mg PO Q8H PRN PRN Reason: Dizziness Melatonin (Melatonin 3 Mg Tablet) 6 mg PO BEDTIME PRN PRN Reason: Insomnia Non-Formulary Medication (Rasagiline) 1 mg PO DAILY [facility] Ondansetron HCl (Ondansetron Hcl 4 Mg/2 Ml Vial) 4 mg IVPUSH Q8H PRN PRN Reason: Nausea and Vomiting Quetiapine Fumarate (Quetiapine Fumarate 25 Mg Tablet) 25 mg PO BEDTIME [facility] Last Admin: 09/28/25 20:10 Dose: 25 mg Documented By: GLORIA Rivastigmine Tartrate (Rivastigmine Tartrate 1.5 Mg Capsule) 1.5 mg PO BID [facility] Last Admin: 09/29/25 10:41 Dose: 1.5 mg Documented By: CURTIS Senna (Sennosides 8.6 Mg Tablet) 17.2 mg PO DAILY [facility] Last Admin: 09/29/25 10:40 Dose: 17.2 mg Documented By: CURTIS Sodium Chloride (0.9 % Sodium Chloride Flush 3 Ml Syringe) 3 ml IVFLUSH QSHIFT [facility] Last Admin: 09/29/25 10:40 Dose: 3 ml Documented By: CURTIS Labs 09/28/25 08:41 09/28/25 08:41 Labs: Laboratory Results - last 24 hr 09/29/25 06:38 Hold Purple Top SEE NOTE Hold Red Top See Note Assessment and Plan (1) Anxiety: Status: Acute (2) Benign essential hypertension: Status: Acute (3) Orthostatic hypotension: Status: Acute (4) Pure hypercholesterolemia: Status: Acute (5) Impaired fasting glucose: Status: Acute (6) Hearing impairment: Status: Acute (7) Constipation: Status: Acute (8) Hyperkalemia: Status: Acute (9) Benign prostate hyperplasia: Status: Acute (10) Sepsis due to urinary tract infection: Status: Acute (11) Laceration of head: Status: Acute (12) Parkinson's disease: Status: Acute (13) Parkinson's disease without dyskinesia or fluctuating manifestations: Status: Acute (14) Tremor of both hands: Status: Acute (15) Autonomic dysfunction: Status: Acute Plan 75/m with parkinson?s disease presents with multiple falls, admitted with severe orthostatic hypotension pending further workup and management. Autonomic dysfunction Orthostatic hypotension Progressing Parkinson's disease Orthostatic hypotension with recurrent dizziness and fall, likely multifactorial in the setting of Parkinson?s disease?related autonomic dysfunction, possible volume depletion. Persistent orthostasis despite IV fluids raises concern for neurogenic orthostatic hypotension. Fall resulted in scalp laceration without intracranial injury or cervical spine fracture. Continue IV fluids as needed; encourage adequate oral hydration. Consider compression stockings If persistent and symptomatic, consider pharmacologic therapy (e.g., midodrine or fludrocortisone) Telemetry to rule out arrhythmia as possible cause of dizziness, less likely Continue levodopa/carbidopa Neurology consultation placed Consider nephrology consultation for initiation of fludrocortisone in setting of patient's orthostatic hypotension/autonomic dysfunction Check orthostatic vitals daily. Nephrology reccs greatly appreciated - continue fludrocortisone 0.1mg OD PO Fall / dizziness Fall precautions. Physical therapy and gait evaluation prior to dc Assist with ambulation; consider walker if not already used. Scalp laceration Local wound care. Monitor for bleeding or signs of infection. DVT Prophylaxis: Lovneox Full code Admit for continued management of symptomatic orthostatic hypotension and fall risk. Extensive discussion was held with the patient's son Total time managing care of this patient today: 35 minutes. Quality Stroke Does the patient have a stroke diagnosis?: No VTE Prior VTE?: No VTE Risk Level:: Medical - moderate - high VTE Device Contraindication: Treatment Not Indicated VTE Drug Contraindication: N/A - Med Ordered
--- NOTE | 2025-09-29 14:25 | P.PNNP_ITS ---
Subjective Subjective Date of Service: 09/29/25 Interval history: Started on fludrocortisone yesterday Still has postural drop from 135/64 to 79/46mmHg upon standing Physical Exam 2 Vital Signs: Vital Signs: Last Vital Signs Temp 97.2 F 09/29/25 11:33 Pulse 60 09/29/25 11:33 Resp 18 09/29/25 11:33 BP 122/62 09/29/25 11:33 Pulse Ox 96 09/29/25 11:33 O2 Del Method Room Air 09/29/25 11:33 O2 Flow Rate 97 09/28/25 00:00 BMI result Body Mass Index 19.0 General: not in any acute distress, ill appearing Nutritional Appearance: well nourished and overweight Eyes: appearance normal, both eyes and all related structures; Alignment and Position: alignment normal and position normal Neck: No lymphadenopathy, no thyromegaly Resp: bilateral air entry equal, no added sounds present Cardio: Regular rate, regular rhythm; normal S1-S2 GI: soft, nontender, no guarding, no hepatosplenomegaly : bladder normal to inspection, bladder normal to palpation, no renal angle tenderness Skin: no rashes or lesions noted and elasticity normal Neuro: alert, oriented x 3, moves all extremities Objective Data Labs 09/28/25 08:41 09/28/25 08:41 Labs: Laboratory Results - last 24 hr 09/29/25 06:38 Hold Purple Top SEE NOTE Hold Red Top See Note Procedures Date of Service Date of Service: 09/29/25 Assessment & Plan Assessment and plan (1) Parkinson's disease: Status: Acute (2) Dizziness: Status: Acute (3) Orthostatic hypotension: Status: Acute Plan Orthostatic hypotension: Secondary to Parkinson's disease, started on fludrocortisone yesterday but still continues to have about 55 mm of Hg drop upon standing. 135/64 supine, 79/46 upon standing. We will add midodrine 10mg TID to stabilize vascular tone. Might need to increase the antihypertensive if the patient develops worsening supine hypertension, but permissive hypertension should be allowed to prevent excessive drop in BP while standing. Explained the family about the possible side effects including edema and supine hypertension. We will look for the effects of fludrocortisone tomorrow and we will adjust accordingly if needed. Also advised the patient to take a lot of time before getting up from bed, sit on the edge of the bed for few minutes and then slowly stand up. Use urinals bedside. Compression stockings would also help. Avoid hot showers, alcohol or large meals. Time Spent With Patient Time: Total time managing care of this patient today ____ minutes. Progress Note: Quality Stroke Does the patient have a stroke diagnosis?: No
[2025-09-29 15:55] VITALS: BP 120/63; PULSE 86; RESP 18; TEMP 36.8; O2SAT 98
[2025-09-29 17:40] VITALS: BP 138/67
[2025-09-29 19:44] VITALS: BP 137/66; PULSE 64; RESP 16; TEMP 36.8; O2SAT 96
[2025-09-30] VITALS (7 sets, daily range): BP systolic 118–178; BP diastolic 58–83; PULSE 52–78; RESP 16–20; TEMP 36.5–37.4; O2SAT 96–97
--- NOTE | 2025-09-30 08:08 | P.CDIM_ITS ---
PROVIDER RESPONSE TEXT: To clarify, the appropriate diagnosis supported by the clinical indicators: Cachexia QUERY TEXT: PHYSICIAN'S DOCUMENTATION REQUEST Date of Query: 09/28/2025 08:28 AM EST Patient Name: Vincenzo Prieto Admit Date: 09/24/2025 Dear Reyes Gaston MD, A review of the medical record indicates additional documentation may be needed. Please review below and update the documentation accordingly. Clinical Indicators: Height: ( ) 5'9 Weight: ( ) 58.4 kg BMI: ( ) 19.0 Other Clinical Notes Supporting Significance of the BMI: per RD note 09/26/25, po intake < 50% x5 days If possible, please provide an associated diagnosis related to the abnormal BMI, such as: Underweight Weight loss Cachexia Anorexia BMI is not significant Other (explain) Clinically unable to determine (explain) Thank you, Madeline Coleman RN Use of terms such as suspected, likely, concern for, or probable (associated with a specific diagnosis that is being evaluated, monitored, or treated as if it exists) are acceptable and can be coded in the inpatient setting, when documented at the time of discharge. Please use your independent medical judgment in providing your response. THIS QUERY IS PART OF THE PERMANENT MEDICAL RECORD
[2025-09-30] MEDS: 0.9 % Sodium Chloride Flush 3 ML SYRINGE IVFLUSH ×3 (09:06→21:00)
[2025-09-30] MEDS: Lidocaine 4 % Patch ADH..PATCH 1 PATCH TRANSDERMA (10:21)
--- NOTE | 2025-09-30 15:10 | P.PNIM_ITS ---
Subjective Subjective Date of Service: 09/30/25 Interval History: No new complaints today. Feels well overall. Restarted midodrine yesterday Continue with fludrocortisone Discussion with the son regarding the patient's clinical progression Parkinson's disease/Lewy body dementia with severe autonomic dysfunction Review of Systems Review of Systems: Yes all other systems are reviewed and are negative Physical Exam 2 Exam: Exam: General: A&O x3 comfortable, no pain HEENT: Seborrheic dermatitis facial Cardiac: S1, S2 auscultated with no S3/4, no MRG. Well perfused. Respiratory: Normal breath sounds auscultated throughout all lung zones, without wheezing, rales. Normal rate. GI/ : No abdominal pain on palpation, no masses or distentions. MSK: Reduced muscular bulk in the upper and lower extremities bilaterally; bilateral pill-rolling tremulousness at rest Neurological: Normal neurological examination on overview, without obvious CN II-XII abnormalities. Vital Signs: Vital Signs: Last Vital Signs Temp 97.7 F 09/30/25 11:42 Pulse 52 09/30/25 11:42 Resp 16 09/30/25 11:42 BP 118/58 L 09/30/25 11:42 Pulse Ox 97 09/30/25 11:42 O2 Del Method Room Air 09/30/25 11:42 O2 Flow Rate 97 09/28/25 00:00 BMI result Body Mass Index 19.0 Objective Data Active Medications Acetaminophen (Acetaminophen 325 Mg Tablet) 650 mg PO Q6H PRN PRN Reason: Pain, Mild 1-3,fever,headache Last Admin: 09/29/25 22:30 Dose: 650 mg Documented By: MITCHELL Acetaminophen (Acetaminophen 325 Mg Tablet) 650 mg PO Q6H PRN PRN Reason: Fever Or Pain Al Hydroxide/Mg Hydroxide (Magnesium Hydrox/Alum Hydrox 30 Ml Oral.Susp) 30 ml PO Q4H PRN PRN Reason: Heartburn Amlodipine Besylate (Amlodipine Besylate 5 Mg Tablet) 5 mg PO DAILY [facility]; Protocol Last Admin: 09/30/25 09:04 Dose: 5 mg Documented By: TACHO Atorvastatin Calcium (Atorvastatin Calcium 40 Mg Tablet) 40 mg PO BEDTIME LALA Last Admin: 09/29/25 22:30 Dose: 40 mg Documented By: MITCHELL Bisacodyl (Bisacodyl 10 Mg Supp.Rect) 10 mg CO DAILY PRN PRN Reason: Constipation Calcium Carbonate (Calcium Carbonate 750 Mg Tab.Chew) 750 mg PO Q4H PRN PRN Reason: Heartburn Carbidopa/Levodopa (Carbidopa/Levodopa 25/100 Tablet) 1 tab PO TID [facility] Last Admin: 09/30/25 14:09 Dose: 1 tab Documented By: TACHO Enoxaparin Sodium (Enoxaparin Sodium 40 Mg/0.4 Ml Syringe) 40 mg SUBCUT Q24H [facility] Last Admin: 09/30/25 09:05 Dose: 40 mg Documented By: TACHO Escitalopram Oxalate (Escitalopram Oxalate 5 Mg Tablet) 5 mg PO DAILY [facility] Last Admin: 09/30/25 09:04 Dose: 5 mg Documented By: TACHO Finasteride (Finasteride 5 Mg Tablet) 5 mg PO DAILY [facility] Last Admin: 09/30/25 09:05 Dose: 5 mg Documented By: TACHO Fludrocortisone Acetate (Fludrocortisone Acetate 0.1 Mg Tablet) 0.1 mg PO DAILY [facility] Last Admin: 09/30/25 09:06 Dose: 0.1 mg Documented By: TACHO Lidocaine (Lidocaine 4 % Patch Adh..Patch) 1 patch TRANSDERMA DAILY [facility]; Protocol Last Admin: 09/30/25 10:21 Dose: 1 patch Documented By: TACHO Losartan Potassium (Losartan Potassium 25 Mg Tablet) 25 mg PO DAILY [facility]; Protocol Last Admin: 09/30/25 09:04 Dose: 25 mg Documented By: TACHO Magnesium Hydroxide (Milk Of Magnesia 30 Ml Oral.Susp) 30 ml PO DAILY PRN PRN Reason: Constipation Meclizine HCl (Meclizine Hcl 25 Mg Tablet) 25 mg PO Q8H PRN PRN Reason: Dizziness Melatonin (Melatonin 3 Mg Tablet) 6 mg PO BEDTIME PRN PRN Reason: Insomnia Midodrine (Midodrine Hcl 10 Mg Tablet) 10 mg PO TID@0900,1300,1700 [facility] Last Admin: 09/30/25 14:08 Dose: 10 mg Documented By: TACHO Non-Formulary Medication (Rasagiline) 1 mg PO DAILY [facility] Ondansetron HCl (Ondansetron Hcl 4 Mg/2 Ml Vial) 4 mg IVPUSH Q8H PRN PRN Reason: Nausea and Vomiting Quetiapine Fumarate (Quetiapine Fumarate 25 Mg Tablet) 25 mg PO BEDTIME [facility] Last Admin: 09/29/25 22:30 Dose: 25 mg Documented By: MITCHELL Rivastigmine Tartrate (Rivastigmine Tartrate 1.5 Mg Capsule) 1.5 mg PO BID [facility] Last Admin: 09/30/25 09:06 Dose: 1.5 mg Documented By: TACHO Senna (Sennosides 8.6 Mg Tablet) 17.2 mg PO DAILY [facility] Last Admin: 09/30/25 09:04 Dose: 17.2 mg Documented By: TACHO Sodium Chloride (0.9 % Sodium Chloride Flush 3 Ml Syringe) 3 ml IVFLUSH QSHIFT [facility] Last Admin: 09/30/25 09:06 Dose: 3 ml Documented By: TACHO Labs 09/28/25 08:41 09/28/25 08:41 Assessment and Plan (1) Benign essential hypertension: Status: Acute (2) Orthostatic hypotension: Status: Acute (3) Pure hypercholesterolemia: Status: Acute (4) Nocturia: Status: Acute (5) Urinary urgency: Status: Acute (6) Parkinson's disease: Status: Acute (7) Lewy body dementia: Status: Ruled-out (8) Parkinson's disease without dyskinesia or fluctuating manifestations: Status: Acute (9) Autonomic dysfunction: Status: Acute Plan 75/m with parkinson?s disease presents with multiple falls, admitted with severe orthostatic hypotension pending further workup and management. Autonomic dysfunction Orthostatic hypotension Progressing Parkinson's disease Orthostatic hypotension with recurrent dizziness and fall, likely multifactorial in the setting of Parkinson?s disease?related autonomic dysfunction, possible volume depletion. Persistent orthostasis despite IV fluids raises concern for neurogenic orthostatic hypotension. Fall resulted in scalp laceration without intracranial injury or cervical spine fracture. Continue IV fluids as needed; encourage adequate oral hydration. Consider compression stockings If persistent and symptomatic, consider pharmacologic therapy (e.g., midodrine or fludrocortisone) Telemetry to rule out arrhythmia as possible cause of dizziness, less likely Continue levodopa/carbidopa Neurology consultation placed Consider nephrology consultation for initiation of fludrocortisone in setting of patient's orthostatic hypotension/autonomic dysfunction Check orthostatic vitals daily. Nephrology reccs greatly appreciated Continue fludrocortisone 0.1mg OD PO Resume midodrine 10mg TID PO Fall / dizziness Fall precautions. Physical therapy and gait evaluation prior to dc Assist with ambulation; consider walker if not already used. Scalp laceration Local wound care. Monitor for bleeding or signs of infection. DVT Prophylaxis: Lovneox Full code Admit for continued management of symptomatic orthostatic hypotension and high fall risk. Extensive discussion was held with the patient's son Total time managing care of this patient today: 35 minutes. Quality Stroke Does the patient have a stroke diagnosis?: No VTE Prior VTE?: No VTE Risk Level:: Medical - moderate - high VTE Device Contraindication: Treatment Not Indicated VTE Drug Contraindication: N/A - Med Ordered
--- NOTE | 2025-09-30 16:22 | PC.NURSE ---
OOb to recliner with 1 assist ,
--- NOTE | 2025-09-30 17:41 | P.PNNP_ITS ---
Subjective Subjective Date of Service: 09/30/25 Interval history: No new complaints, doing okay Restarted midodrine yesterday; Continue with fludrocortisone Physical Exam 2 Vital Signs: Vital Signs: Last Vital Signs Temp 97.8 F 09/30/25 15:20 Pulse 78 09/30/25 15:20 Resp 18 09/30/25 15:20 BP 130/60 09/30/25 15:20 Pulse Ox 97 09/30/25 15:20 O2 Del Method Room Air 09/30/25 15:20 O2 Flow Rate 97 09/28/25 00:00 BMI result Body Mass Index 19.0 General: not in any acute distress, ill appearing Nutritional Appearance: well nourished and underweight Eyes: appearance normal, both eyes and all related structures; Alignment and Position: alignment normal and position normal Neck: No lymphadenopathy, no thyromegaly Resp: bilateral air entry equal, no added sounds present Cardio: Regular rate, regular rhythm; Heart sounds: S1 normal heart sound present and S2 normal heart sound present GI: soft, nontender, no guarding, no hepatosplenomegaly : bladder normal to inspection, bladder normal to palpation, no renal angle tenderness Skin: no rashes or lesions noted and elasticity normal Neuro: alert, oriented x 3, moves all extremities, bradykinesia present, postural hypotension present Objective Data Labs 09/28/25 08:41 09/28/25 08:41 Procedures Date of Service Date of Service: 09/30/25 Assessment & Plan Assessment and plan (1) Parkinson's disease: Status: Acute (2) Orthostatic hypotension: Status: Acute Plan Orthostatic hypotension: Secondary to Parkinson's disease, Continue fludrocortisone 0.1 mg daily, midodrine 10 mg TID. Given that patient has severe Parkinson's disease some of the posterior hypotension would be very difficult to correct. Avoid aggressive correction of the blood pressures given his overall poor prognosis due to deconditioning, allow permissive hypertension to prevent excessive drop in BP while standing. Explained the family about the possible side effects including edema and supine hypertension. Also advised the patient to take a lot of time before getting up from bed, sit on the edge of the bed for few minutes and then slowly stand up. Use urinals bedside. Compression stockings would also help. Avoid hot showers, alcohol or large meals. Time Spent With Patient Time: Total time managing care of this patient today ____ minutes. Progress Note: Quality Stroke Does the patient have a stroke diagnosis?: No
[2025-10-01] VITALS (8 sets, daily range): BP systolic 134–174; BP diastolic 63–90; PULSE 49–63; RESP 14–18; TEMP 36.3–37; O2SAT 96–98
--- NOTE | 2025-10-01 17:42 | P.PNIM_ITS ---
Subjective Subjective Date of Service: 10/01/25 Interval History: No new complaints or issues today. Patient feels well overall. Still having significant dizziness with changing position Tolerating midodrine and fludrocortisone doses Eating and drinking well Plan for discharge tomorrow Review of Systems Review of Systems: Yes all other systems are reviewed and are negative Physical Exam 2 Exam: Exam: General: A&O x3 comfortable, no pain HEENT: Seborrheic dermatitis facial Cardiac: S1, S2 auscultated with no S3/4, no MRG. Well perfused. Respiratory: Normal breath sounds auscultated throughout all lung zones, without wheezing, rales. Normal rate. GI/ : No abdominal pain on palpation, no masses or distentions. MSK: Reduced muscular bulk in the upper and lower extremities bilaterally; bilateral pill-rolling tremulousness at rest Neurological: Normal neurological examination on overview, without obvious CN II-XII abnormalities. Vital Signs: Vital Signs: Last Vital Signs Temp 97.7 F 10/01/25 15:12 Pulse 60 10/01/25 15:12 Resp 16 10/01/25 15:12 BP 139/69 10/01/25 15:12 Pulse Ox 96 10/01/25 15:12 O2 Del Method Room Air 10/01/25 15:12 O2 Flow Rate 97 09/28/25 00:00 BMI result Body Mass Index 19.0 Objective Data Active Medications Acetaminophen (Acetaminophen 325 Mg Tablet) 650 mg PO Q6H PRN PRN Reason: Pain, Mild 1-3,fever,headache Last Admin: 09/29/25 22:30 Dose: 650 mg Documented By: MITCHELL Acetaminophen (Acetaminophen 325 Mg Tablet) 650 mg PO Q6H PRN PRN Reason: Fever Or Pain Al Hydroxide/Mg Hydroxide (Magnesium Hydrox/Alum Hydrox 30 Ml Oral.Susp) 30 ml PO Q4H PRN PRN Reason: Heartburn Amlodipine Besylate (Amlodipine Besylate 5 Mg Tablet) 5 mg PO DAILY [facility] OF [facility]; Protocol Last Admin: 10/01/25 08:55 Dose: 5 mg Documented By: BOBBY Atorvastatin Calcium (Atorvastatin Calcium 40 Mg Tablet) 40 mg PO BEDTIME ON LICENSE OF [facility] Last Admin: 09/30/25 20:59 Dose: 40 mg Documented By: JOYCE Bisacodyl (Bisacodyl 10 Mg Supp.Rect) 10 mg SD DAILY PRN PRN Reason: Constipation Calcium Carbonate (Calcium Carbonate 750 Mg Tab.Chew) 750 mg PO Q4H PRN PRN Reason: Heartburn Carbidopa/Levodopa (Carbidopa/Levodopa 25/100 Tablet) 1 tab PO TID ON [facility] OF [facility] Last Admin: 10/01/25 14:34 Dose: 1 tab Documented By: BOBBY Enoxaparin Sodium (Enoxaparin Sodium 40 Mg/0.4 Ml Syringe) 40 mg SUBCUT Q24H ON LICENSE OF [facility] Last Admin: 10/01/25 09:07 Dose: Not Given Documented By: BOBBY Non-Admin Reason: Patient Refused Escitalopram Oxalate (Escitalopram Oxalate 5 Mg Tablet) 5 mg PO DAILY [facility] Last Admin: 10/01/25 08:55 Dose: 5 mg Documented By: BOBBY Finasteride (Finasteride 5 Mg Tablet) 5 mg PO DAILY [facility] Last Admin: 10/01/25 09:07 Dose: Not Given Documented By: BOBBY Non-Admin Reason: Patient Refused Fludrocortisone Acetate (Fludrocortisone Acetate 0.1 Mg Tablet) 0.1 mg PO DAILY ON [facility] OF [facility] Last Admin: 10/01/25 08:55 Dose: 0.1 mg Documented By: BOBBY Lidocaine (Lidocaine 4 % Patch Adh..Patch) 1 patch TRANSDERMA DAILY ON LICENSE OF [facility]; Protocol Last Admin: 10/01/25 09:01 Dose: Not Given Documented By: BOBBY Non-Admin Reason: Patient Refused Losartan Potassium (Losartan Potassium 25 Mg Tablet) 25 mg PO DAILY ON LICENSE OF [facility]; Protocol Last Admin: 10/01/25 08:55 Dose: 25 mg Documented By: BOBBY Magnesium Hydroxide (Milk Of Magnesia 30 Ml Oral.Susp) 30 ml PO DAILY PRN PRN Reason: Constipation Meclizine HCl (Meclizine Hcl 25 Mg Tablet) 25 mg PO Q8H PRN PRN Reason: Dizziness Melatonin (Melatonin 3 Mg Tablet) 6 mg PO BEDTIME PRN PRN Reason: Insomnia Last Admin: 09/30/25 21:00 Dose: 6 mg Documented By: JOYCE Midodrine (Midodrine Hcl 10 Mg Tablet) 10 mg PO TID@0900,1300,1700 ON LICENSE OF [facility] Last Admin: 10/01/25 16:37 Dose: 10 mg Documented By: BOBBY Non-Formulary Medication (Rasagiline) 1 mg PO DAILY [facility] OF [facility] Ondansetron HCl (Ondansetron Hcl 4 Mg/2 Ml Vial) 4 mg IVPUSH Q8H PRN PRN Reason: Nausea and Vomiting Quetiapine Fumarate (Quetiapine Fumarate 25 Mg Tablet) 25 mg PO BEDTIME ON [facility] OF [facility] Last Admin: 09/30/25 20:59 Dose: 25 mg Documented By: JOYCE Rivastigmine Tartrate (Rivastigmine Tartrate 1.5 Mg Capsule) 1.5 mg PO BID ON LICENSE OF [facility] Last Admin: 10/01/25 09:07 Dose: Not Given Documented By: BOBBY Non-Admin Reason: Patient Refused Senna (Sennosides 8.6 Mg Tablet) 17.2 mg PO DAILY ON LICENSE OF [facility] Last Admin: 10/01/25 08:54 Dose: 17.2 mg Documented By: BOBBY Sodium Chloride (0.9 % Sodium Chloride Flush 3 Ml Syringe) 3 ml IVFLUSH QSHIFT ON LICENSE OF [facility] Last Admin: 10/01/25 15:02 Dose: Not Given Documented By: BOBBY Non-Admin Reason: Previously Administered Labs 09/28/25 08:41 09/28/25 08:41 Assessment and Plan (1) Anxiety: Status: Acute (2) Benign essential hypertension: Status: Acute (3) Orthostatic hypotension: Status: Acute (4) Hyperkalemia: Status: Acute (5) Constipation: Status: Acute (6) Urinary urgency: Status: Acute (7) Laceration of head: Status: Acute (8) Parkinson's disease without dyskinesia or fluctuating manifestations: Status: Acute (9) Lewy body dementia: Status: Ruled-out (10) Tremor of both hands: Status: Acute (11) Autonomic dysfunction: Status: Acute (12) Excessive sweating: Status: Acute (13) Dizziness: Status: Acute Plan 75/m with parkinson?s disease presents with multiple falls, admitted with severe orthostatic hypotension pending further workup and management. Autonomic dysfunction Orthostatic hypotension Progressing Parkinson's disease Orthostatic hypotension with recurrent dizziness and fall, likely multifactorial in the setting of Parkinson?s disease?related autonomic dysfunction, possible volume depletion. Persistent orthostasis despite IV fluids raises concern for neurogenic orthostatic hypotension. Fall resulted in scalp laceration without intracranial injury or cervical spine fracture. Continue IV fluids as needed; encourage adequate oral hydration. Consider compression stockings If persistent and symptomatic, consider pharmacologic therapy (e.g., midodrine or fludrocortisone) Telemetry to rule out arrhythmia as possible cause of dizziness, less likely Continue levodopa/carbidopa Neurology consultation placed Consider nephrology consultation for initiation of fludrocortisone in setting of patient's orthostatic hypotension/autonomic dysfunction Check orthostatic vitals daily. Nephrology reccs greatly appreciated Continue fludrocortisone 0.1mg OD PO Resume midodrine 10mg TID PO Fall / dizziness Fall precautions. Physical therapy and gait evaluation prior to dc Assist with ambulation; consider walker if not already used. Scalp laceration Local wound care. Monitor for bleeding or signs of infection. DVT Prophylaxis: Lovneox Full code Admit for continued management of symptomatic orthostatic hypotension and high fall risk Plan for discharge tomorrow Total time managing care of this patient today: 35 minutes. Quality Stroke Does the patient have a stroke diagnosis?: No VTE Prior VTE?: No VTE Risk Level:: Medical - moderate - high VTE Device Contraindication: Treatment Not Indicated VTE Drug Contraindication: N/A - Med Ordered
[2025-10-01] MEDS: 0.9 % Sodium Chloride Flush 3 ML SYRINGE IVFLUSH (20:11)
[2025-10-02] VITALS (10 sets, daily range): BP systolic 123–175; BP diastolic 60–88; PULSE 48–60; RESP 16–18; TEMP 36.3–36.8; O2SAT 97–99
[2025-10-02] MEDS: 0.9 % Sodium Chloride Flush 3 ML SYRINGE IVFLUSH ×3 (09:54→20:32)
[2025-10-02] MEDS: Lidocaine 4 % Patch ADH..PATCH 1 PATCH TRANSDERMA (10:00)
--- NOTE | 2025-10-02 14:55 | P.PNIM_ITS ---
Subjective Subjective Date of Service: 10/02/25 Interval History: Sodium 1-1 discontinued Patient did not require sitter due to behaviors, however due to possible assistance with mobilization instability to walk to bathroom No new issues or complaints Blood pressure optimize Still requires supports to prevent falls 2/2 severe orthostatic hypotension Review of Systems Review of Systems: Yes all other systems are reviewed and are negative Physical Exam 2 Exam: Exam: General: A&O x3 comfortable, no pain HEENT: Seborrheic dermatitis facial Cardiac: S1, S2 auscultated with no S3/4, no MRG. Well perfused. Respiratory: Normal breath sounds auscultated throughout all lung zones, without wheezing, rales. Normal rate. GI/ : No abdominal pain on palpation, no masses or distentions. MSK: Reduced muscular bulk in the upper and lower extremities bilaterally; bilateral pill-rolling tremulousness at rest Neurological: Normal neurological examination on overview, without obvious CN II-XII abnormalities. Vital Signs: Vital Signs: Last Vital Signs Temp 98.2 F 10/02/25 11:10 Pulse 60 10/02/25 11:10 Resp 16 10/02/25 11:10 BP 134/72 10/02/25 13:06 Pulse Ox 98 10/02/25 11:10 O2 Del Method Room Air 10/02/25 11:10 O2 Flow Rate 97 09/28/25 00:00 BMI result Body Mass Index 19.0 Objective Data Active Medications Acetaminophen (Acetaminophen 325 Mg Tablet) 650 mg PO Q6H PRN PRN Reason: Pain, Mild 1-3,fever,headache Last Admin: 09/29/25 22:30 Dose: 650 mg Documented By: MITCHELL Acetaminophen (Acetaminophen 325 Mg Tablet) 650 mg PO Q6H PRN PRN Reason: Fever Or Pain Al Hydroxide/Mg Hydroxide (Magnesium Hydrox/Alum Hydrox 30 Ml Oral.Susp) 30 ml PO Q4H PRN PRN Reason: Heartburn Amlodipine Besylate (Amlodipine Besylate 5 Mg Tablet) 5 mg PO DAILY [facility]; Protocol Last Admin: 10/02/25 09:59 Dose: 5 mg Documented By: YANICK Comments: Per provider: not to hold Atorvastatin Calcium (Atorvastatin Calcium 40 Mg Tablet) 40 mg PO BEDTIME [facility] Last Admin: 10/01/25 20:10 Dose: 40 mg Documented By: HO.[email or web address] Bisacodyl (Bisacodyl 10 Mg Supp.Rect) 10 mg MT DAILY PRN PRN Reason: Constipation Calcium Carbonate (Calcium Carbonate 750 Mg Tab.Chew) 750 mg PO Q4H PRN PRN Reason: Heartburn Carbidopa/Levodopa (Carbidopa/Levodopa 25/100 Tablet) 1 tab PO TID [facility] Last Admin: 10/02/25 09:57 Dose: 1 tab Documented By: YANICK Enoxaparin Sodium (Enoxaparin Sodium 40 Mg/0.4 Ml Syringe) 40 mg SUBCUT Q24H [facility] Last Admin: 10/02/25 10:00 Dose: 40 mg Documented By: YANICK Escitalopram Oxalate (Escitalopram Oxalate 5 Mg Tablet) 5 mg PO DAILY [facility] Last Admin: 10/02/25 09:57 Dose: 5 mg Documented By: YANICK Finasteride (Finasteride 5 Mg Tablet) 5 mg PO DAILY [facility] Last Admin: 10/02/25 10:00 Dose: 5 mg Documented By: YANICK Fludrocortisone Acetate (Fludrocortisone Acetate 0.1 Mg Tablet) 0.1 mg PO DAILY [facility] Last Admin: 10/02/25 09:57 Dose: 0.1 mg Documented By: YANICK Lidocaine (Lidocaine 4 % Patch Adh..Patch) 1 patch TRANSDERMA DAILY [facility]; Protocol Last Admin: 10/02/25 10:00 Dose: 1 patch Documented By: YANICK Losartan Potassium (Losartan Potassium 25 Mg Tablet) 25 mg PO DAILY [facility]; Protocol Last Admin: 10/02/25 09:58 Dose: 25 mg Documented By: YANICK Comments: Per Provider not to hold Magnesium Hydroxide (Milk Of Magnesia 30 Ml Oral.Susp) 30 ml PO DAILY PRN PRN Reason: Constipation Meclizine HCl (Meclizine Hcl 25 Mg Tablet) 25 mg PO Q8H PRN PRN Reason: Dizziness Melatonin (Melatonin 3 Mg Tablet) 6 mg PO BEDTIME PRN PRN Reason: Insomnia Last Admin: 09/30/25 21:00 Dose: 6 mg Documented By: JOYCE Midodrine (Midodrine Hcl 10 Mg Tablet) 10 mg PO TID@0900,1300,1700 [facility] Last Admin: 10/02/25 13:06 Dose: 10 mg Documented By: YANICK Non-Formulary Medication (Rasagiline) 1 mg PO DAILY [facility] Ondansetron HCl (Ondansetron Hcl 4 Mg/2 Ml Vial) 4 mg IVPUSH Q8H PRN PRN Reason: Nausea and Vomiting Quetiapine Fumarate (Quetiapine Fumarate 25 Mg Tablet) 25 mg PO BEDTIME [facility] Last Admin: 10/01/25 20:10 Dose: 25 mg Documented By: GILA Rivastigmine Tartrate (Rivastigmine Tartrate 1.5 Mg Capsule) 1.5 mg PO BID [facility] Last Admin: 10/02/25 09:57 Dose: 1.5 mg Documented By: YANICK Senna (Sennosides 8.6 Mg Tablet) 17.2 mg PO DAILY [facility] Last Admin: 10/02/25 09:57 Dose: 17.2 mg Documented By: YANICK Sodium Chloride (0.9 % Sodium Chloride Flush 3 Ml Syringe) 3 ml IVFLUSH QSHIFT [facility] Last Admin: 10/02/25 09:54 Dose: 3 ml Documented By: YANICK Labs 09/28/25 08:41 09/28/25 08:41 Assessment and Plan (1) Anxiety: Status: Acute (2) Orthostatic hypotension: Status: Acute (3) Benign essential hypertension: Status: Acute (4) Overweight (BMI 25.0-29.9): Status: Acute (5) Impaired fasting glucose: Status: Acute (6) Constipation: Status: Acute (7) Urinary urgency: Status: Acute (8) Nocturia: Status: Acute (9) Sepsis due to urinary tract infection: Status: Acute (10) Parkinson's disease without dyskinesia or fluctuating manifestations: Status: Acute (11) Lewy body dementia: Status: Ruled-out (12) Autonomic dysfunction: Status: Acute (13) Dizziness: Status: Acute (14) Excessive sweating: Status: Acute Plan 75/m with parkinson?s disease presents with multiple falls, admitted with severe orthostatic hypotension pending further workup and management. Autonomic dysfunction Orthostatic hypotension Progressing Parkinson's disease Orthostatic hypotension with recurrent dizziness and fall, likely multifactorial in the setting of Parkinson?s disease?related autonomic dysfunction, possible volume depletion. Persistent orthostasis despite IV fluids raises concern for neurogenic orthostatic hypotension. Fall resulted in scalp laceration without intracranial injury or cervical spine fracture. Continue IV fluids as needed; encourage adequate oral hydration. Consider compression stockings If persistent and symptomatic, consider pharmacologic therapy (e.g., midodrine or fludrocortisone) Telemetry to rule out arrhythmia as possible cause of dizziness, less likely Continue levodopa/carbidopa Neurology consultation placed Consider nephrology consultation for initiation of fludrocortisone in setting of patient's orthostatic hypotension/autonomic dysfunction Check orthostatic vitals daily. Nephrology reccs greatly appreciated Continue fludrocortisone 0.1mg OD PO Continue midodrine 10mg TID PO Fall / dizziness Fall precautions. Physical therapy and gait evaluation prior to dc Assist with ambulation; consider walker if not already used. Scalp laceration Local wound care. Monitor for bleeding or signs of infection. DVT Prophylaxis: Lovneox Full code Admit for continued management of symptomatic orthostatic hypotension and high fall risk DISCONTINUE 1:1 SITTER PER STR REQUEST Plan for discharge tomorrow Total time managing care of this patient today: 35 minutes. Quality Stroke Does the patient have a stroke diagnosis?: No VTE Prior VTE?: No VTE Risk Level:: Medical - moderate - high VTE Device Contraindication: Treatment Not Indicated VTE Drug Contraindication: N/A - Med Ordered
[2025-10-03] MEDS: traZODone HCL 25 MG HALFTAB PO (01:00)
[2025-10-03 04:00] VITALS: BP 133/62; PULSE 73; RESP 17; TEMP 36; O2SAT 98
[2025-10-03] MEDS: 0.9 % Sodium Chloride Flush 3 ML SYRINGE IVFLUSH (08:58)
[2025-10-03 12:00] VITALS: BP 114/58; PULSE 53; RESP 18; TEMP 36.6; O2SAT 97
--- NOTE | 2025-10-03 12:01 | P.DS_ITS ---
DS: Providers Provider Date of admission: 09/24/25 07:43 Date of discharge: 10/03/25 Primary care physician: Mikayla Angulo MD Consults: 09/27/25 12:58 Consult to Neurology Routine Consulting Provider: [facility] Reason for consultation: parkinsons, falls/ autonomic dysfunction (?fludrocortisone) 09/28/25 07:48 Consult to Nephrology Routine Consulting Provider: [facility] Reason for consultation: orthostatic hypotension; ?fludrocortisone DS: Diagnosis Discharge Diagnosis (1) Anxiety: Status: Acute (2) Orthostatic hypotension: Status: Acute (3) Benign essential hypertension: Status: Acute (4) Overweight (BMI 25.0-29.9): Status: Acute (5) Impaired fasting glucose: Status: Acute (6) Constipation: Status: Acute (7) Urinary urgency: Status: Acute (8) Nocturia: Status: Acute (9) Sepsis due to urinary tract infection: Status: Acute (10) Parkinson's disease without dyskinesia or fluctuating manifestations: Status: Acute (11) Lewy body dementia: Status: Ruled-out (12) Autonomic dysfunction: Status: Acute (13) Dizziness: Status: Acute (14) Excessive sweating: Status: Acute DS: Summary Hospital Course Hospital Course: 75-year-old male with advanced Parkinson?s disease complicated by autonomic dy sfunction and recurrent falls, admitted after a mechanical fall with scalp laceration in the setting of severe orthostatic hypotension, requiring inpatient titration of pressor-supportive therapy and multidisciplinary management, now clinically stable for discharge. Neurogenic Orthostatic Hypotension / Autonomic Dysfunction (Primary Problem) Patient presented with recurrent dizziness and multiple falls with marked orthostatic hypotension refractory to IV fluids. Clinical course consistent with?Parkinson?s disease?related autonomic dysfunction. Evaluated by nephrology; medical therapy optimized with improvement in symptoms though persistent orthostasis remains expected. Amlodipine discontinued to reduce iatrogenic hypotension. Plan: * Continue midodrine 10 mg PO TID * Continue fludrocortisone 0.1 mg PO daily * Discontinue amlodipine * Allow permissive supine hypertension to prevent standing hypotension * Daily slow positional changes emphasized * Avoid nighttime standing when possible * Outpatient follow-up with neurology and primary care * Family educated on chronic/progressive nature of autonomic dysfunction Parkinson?s Disease (Advanced) Longstanding Parkinson?s disease with progression manifested by worsening gait instability, tremor, and autonomic dysfunction. No acute medication changes during hospitalization. Plan: * Continue home Parkinson?s regimen (carbidopa/levodopa, rasagiline, rivastigmine) * Continue quetiapine at bedtime for behavioral symptoms * Neurology outpatient follow-up * Reinforce fall risk related to disease progression Recurrent Falls / Gait Instability Falls attributed to neurogenic orthostatic hypotension and Parkinsonian gait instability. Imaging negative for acute intracranial or cervical spine injury. Plan: * Strict fall precautions * Physical therapy evaluation completed * Assistive devices as needed * Home safety measures reviewed with family Scalp Laceration (Resolved) Scalp laceration from index fall; CT head negative for acute pathology. No signs of infection or bleeding during hospitalization. Plan: * Routine wound care * Loy removal per outpatient follow-up if not already completed * Monitor for signs of infection Hypertension Previously treated with amlodipine; therapy contributed to orthostatic hypotension. Plan: * Amlodipine discontinued * Blood pressure management focused on symptom prevention rather than strict targets * Avoid aggressive antihypertensive therapy Benign Prostatic Hyperplasia / Nocturia No acute urinary retention, but nocturia contributes to nighttime falls. Plan: * Continue finasteride * Use bedside urinals and/or external/condom catheter at night * Avoid walking to bathroom overnight when possible DISCHARGE INSTRUCTIONS (URBINA POINTS) * Conservative autonomic dysfunction measures discussed in depth: * Slow positional changes * Compression stockings or DALTON wraps * Adequate oral hydration * Avoid hot showers, alcohol, and large meals * Nighttime urinals/external catheter to prevent falls * Education provided to patient and family regarding high fall risk Status at Discharge Cognitive/behavioral status at discharge: alert and oriented to person place time and situation Functional status at discharge: uses cane/walker Overall status at discharge: patient is back to baseline Time Attestation Total time managing care of this patient today: 45 mintues. Discharge Coordination Time (in mins): 45 Quality: Safe Use of Opioids Does Pt have an Active Cancer Diagnosis on the Problem List?: No Quality: Stroke Does the patient have a stroke diagnosis?: No Physical Exam Exam: Exam: General:?Elderly male, chronically ill appearing, resting in bed, no acute distress. Vital Signs:?Reviewed. HEENT:?Normocephalic. Healing scalp laceration without erythema or drainage. PERRL. EOMI. Mucous membranes moist. Neck:?Supple, no JVD. Cardiovascular:?Regular rate and rhythm. No murmurs, rubs, or gallops. Peripheral pulses palpable. Respiratory:?Clear to auscultation bilaterally. No wheezes, rales, or rhonchi. Non-labored respirations. Abdomen:?Soft, non-tender, non-distended. Normal bowel sounds. Extremities:?No peripheral edema. No cyanosis or clubbing. Skin:?Warm, dry, intact. No rashes. Neurologic:?Awake and alert. Oriented to person and place. Hypophonic speech. Resting tremor present. Bradykinesia noted. Strength grossly symmetric. Gait not assessed due to fall risk. Psychiatric:?Calm, cooperative. Appropriate affect. Vital Signs: Vital Signs: Last Vital Signs Temp 96.8 F 10/03/25 04:00 Pulse 73 10/03/25 04:00 Resp 17 10/03/25 04:00 BP 133/62 10/03/25 04:00 Pulse Ox 98 10/03/25 04:00 O2 Del Method Room Air 10/03/25 04:00 O2 Flow Rate 97 09/28/25 00:00 BMI result Body Mass Index 19.0 Discharge Plan Discharge Anticipated Discharge Date/Time: 10/03/25 12:07 Patient Disposition: Xfer Inpatient Rehab Fac Discharge Diagnosis: mechanical fall with scalp laceration in the setting of severe orthostatic hypotension Referrals: Mikayla Angulo MD [Primary Care Provider, Physical Medicine and Rehab] - 1 Week Discharge Medications: New midodrine 10 mg Tablet 10 mg PO TID@0900,1300,1700 30 Days Qty: 90 0RF fludrocortisone 0.1 mg Tablet 0.1 mg PO DAILY 30 Days Qty: 30 0RF Continued atorvastatin 40 mg tablet 40 mg PO BEDTIME 90 Days Qty: 90 1RF rasagiline 1 mg tablet 1 mg PO DAILY 90 Days Qty: 90 6RF rivastigmine tartrate 1.5 mg Capsule 1.5 mg PO BID acetaminophen 325 mg Tablet 650 mg PO Q6H PRN (Reason: Fever Or Pain) magnesium hydroxide [Milk of Magnesia] 400 mg/5 mL Suspension 30 ml PO DAILY PRN (Reason: Constipation) Rx Instructions: Give if no bowel movement for 3 days. meclizine 25 mg Tablet 25 mg PO Q8H PRN (Reason: Dizziness) bisacodyl 10 mg Suppository 10 mg UT DAILY PRN (Reason: Constipation) lidocaine 5 % Adhesive Patch,Medicated 1 patch TOPICAL DAILY Rx Instructions: leave on most painful area for up to 12 hrs losartan 25 mg Tablet 25 mg PO DAILY Protocol: Hold for SBP< HOLD for SBP < : 120 sennosides 8.6 mg Tablet 17.2 mg PO DAILY escitalopram oxalate 5 mg tablet 5 mg PO DAILY 90 Days Qty: 90 1RF quetiapine 25 mg tablet 25 mg PO BEDTIME finasteride 5 mg tablet 5 mg PO DAILY carbidopa-levodopa 25-100 mg tablet 1 tab PO TID 90 Days Qty: 270 6RF Discontinued midodrine 5 mg tablet 5 mg PO TID Rx Instructions: do not give last dose of day after 6PM or within 4 hrs of bedtime Discharge Orders: Discharge Order (Routine); Ordered 10/03/25 Ordered By: Reyes Gaston Stand Alone Forms: Patient Portal Discharge page Print Language: Yoruba Care Plan Goals: As above Health Concerns: As above Plan of Treatment: As above Assessment: As above
--- NOTE | 2025-10-03 12:27 | MHC.CM.PN ---
Second IMM 10/03/25, Pt. has been medically cleared to DC, he will return to [facility] today via his son.
[2025-10-05 16:19] LABS: Cortisol, Free 0.73 mcg/dL
== END 2025-10-03 14:11 | DRG 989 ==
LOC: HO.ED 07:14 → HO.EDOVER 07:57 → HO.IMC 14:46
PROVIDERS: Admitting Provider Internal Medicine; Emergency Provider Emergency Medicine; PCP Internal Medicine; Visit Provider Hospitalist
DX: G90.3 Multi-system degeneration of the autonomic nervous system (principal); G20.A1 Parkinson's disease without dyskinesia, without mention of fluctuations; E86.0 Dehydration; F02.80 Dementia in other diseases classified elsewhere, unspecified severity, without behavioral disturbance, psychotic disturbance, mood disturbance, and anxiety; G31.83 Neurocognitive disorder with Lewy bodies; N40.1 Benign prostatic hyperplasia with lower urinary tract symptoms; R35.1 Nocturia; S01.01XA Laceration without foreign body of scalp, initial encounter; W19.XXXA Unspecified fall, initial encounter; E78.2 Mixed hyperlipidemia; I10 Essential (primary) hypertension; Z87.891 Personal history of nicotine dependence; Z79.899 Other long term (current) drug therapy
CPT/HCPCS: 36415; 70450; 72125; 80048; 80053; 81001; 81003; 82530; 83690; 83735; 84484; 85025; 93005; 97110; 97116; 97162; 97530; 99285; J1650; J1920

== ENCOUNTER → 2025-09-24 04:14 | Outpatient (BNV) | payer OTHER, SELFPAY | PROVIDERS: Admitting Provider Internal Medicine; Emergency Provider Emergency Medicine; PCP Internal Medicine; Visit Provider Internal Medicine Cardiovascular Disease | DX: Z04.3 Encounter for examination and observation following other accident (principal); R00.1 Bradycardia, unspecified | CPT/HCPCS: 93010 ==

== ENCOUNTER → 2025-09-24 04:23 | Outpatient (BNV) | payer OTHER, SELFPAY | PROVIDERS: Admitting Provider Internal Medicine; Emergency Provider Emergency Medicine; PCP Internal Medicine; Visit Provider Radiology Vascular & Interventional Radiology | DX: M50.30 Other cervical disc degeneration, unspecified cervical region (principal); F03.90 Unspecified dementia, unspecified severity, without behavioral disturbance, psychotic disturbance, mood disturbance, and anxiety; Z04.3 Encounter for examination and observation following other accident | CPT/HCPCS: 70450; 72125 ==

== ENCOUNTER → 2025-09-24 07:43 | Outpatient (BNV) | payer OTHER, SELFPAY | PROVIDERS: Admitting Provider Internal Medicine; Emergency Provider Emergency Medicine; PCP Internal Medicine; Visit Provider Psychiatry & Neurology Neurology | DX: G20.B2 Parkinson's disease with dyskinesia, with fluctuations (principal); G90.9 Disorder of the autonomic nervous system, unspecified | CPT/HCPCS: 99222 ==

== ENCOUNTER → 2025-09-24 07:43 | Outpatient (BNV) | payer OTHER, SELFPAY | PROVIDERS: Admitting Provider Internal Medicine; Emergency Provider Emergency Medicine; PCP Internal Medicine; Visit Provider Internal Medicine Critical Care Medicine | DX: G20.B2 Parkinson's disease with dyskinesia, with fluctuations (principal); R42 Dizziness and giddiness; I95.1 Orthostatic hypotension | CPT/HCPCS: 99232 ==

== ENCOUNTER → 2025-09-24 07:43 | Outpatient (BNV) | payer OTHER, SELFPAY | PROVIDERS: Admitting Provider Internal Medicine; Emergency Provider Emergency Medicine; PCP Internal Medicine; Visit Provider Internal Medicine | DX: I95.1 Orthostatic hypotension (principal) | CPT/HCPCS: 99232 ==